=== PATIENT | female | born 1960 | race Two or more races ===

== ENCOUNTER → 2024-01-28 | Outpatient (CLI) | payer MEDICARE, MEDICAID, SELFPAY ==
--- NOTE | 2024-01-28 15:30 | XR_ITS ---
Examination: CT abdomen and pelvis without contrast. Coronal 3-D reconstructions. Sagittal 2-D reconstructions. Date and time of exam:January 28, 2024 1537 hours Comparison January 29, 2022 INDICATIONS: Left upper abdominal pain beginning one year ago, history kidney stones CTDI: vol (mGy): 13.1 DLP: (mGycm): 787 Technique: Axial images of the abdomen have been obtained, 3 mm slice thickness Intravenous contrast material has not been administered. Low dose protocols were performed. One or more of the following dose reduction techniques were used; automated exposure control, adjustment of the mA and/or KV according to patient size, use of iterative reconstruction technique. Findings: Mild enlargement cardiac contour 24 mm fat-containing mass in the dome of the liver on the right No biliary tract dilatation Contracted gallbladder no gallstones Spleen not enlarged No pancreatic or adrenal mass Moderate bilateral renal parenchymal scar formation Bilateral renal calculi, the largest in the lower pole left kidney 11 mm No hydronephrosis or ureteral calculi Thickening of the umbilical tract Normal appendix No bowel obstruction Atrophic uterus Contracted urinary bladder Severe osteopenia IMPRESSION: Moderate bilateral renal parenchymal scar formation Bilateral renal calculi, the largest lower pole left kidney 11 mm No hydronephrosis or ureteral calculi Normal appendix
== END | disposition home or self-care (01) ==
LOC: CCTX 15:17
PROVIDERS: Referring Provider Urology; Visit Provider Urology
DX: N28.89 Other specified disorders of kidney and ureter (principal); N20.0 Calculus of kidney
CPT/HCPCS: 74176

== ENCOUNTER 2024-02-27 05:48 | Emergency (ER) | payer MEDICARE, MEDICAID, SELFPAY ==
[2024-02-27 05:49] VITALS: BMI 45.4
[2024-02-27 05:54] VITALS: BP 185/66; PULSE 64; RESP 22; TEMP 37; O2SAT 95
--- NOTE | 2024-02-27 06:27 | PD.EDRME ---
Rapid Medical Screening Exam RME Arrival date/time: 02/27/24 05:48 63-year-old female presents to emergency department with complaints of bilateral flank pain x 3 days. I have greeted and performed a focused initial assessment of this patient. Initial appropriate labs ordered at this time. A comprehensive ED assessment and evaluation of the patient and analysis of all test and completion of medical decision making process will be conducted by additional ED provider. Chief Complaint: Abdominal Pain Time Seen by Provider: 02/27/24 06:14 Vital signs: Vital Signs Temperature 98.6 F 02/27/24 05:54 Pulse Rate 64 02/27/24 05:54 Respiratory Rate 22 H 02/27/24 05:54 Blood Pressure 185/66 H 02/27/24 05:54 Pulse Oximetry (%) 95 02/27/24 05:54 Oxygen Delivery Method Room Air 02/27/24 05:54
[2024-02-27 06:48] LABS: Collection Type, Urine Clean Catch
[2024-02-27 07:05] LABS: Basophils # (Auto) 0.1 Thou/mm3 (0.0-0.2); Basophils % (Auto) 1 % (0-2.5); Eosinophils # (Auto) 0.2 Thou/mm3 (0.0-0.5); Eosinophils % (Auto) 3 % (0-10); Hematocrit 32.6 % (36.0-46.0); Hemoglobin 10.5 g/dL (12.0-16.0); Immature Granulocytes % (Auto) 0 % (0-0); Immature Granulocytes Auto 0.03 Thou/mm3 (0.00-0.00); Lymphocytes # (Auto) 2.3 Thou/mm3 (1.0-4.8); Lymphocytes % (Auto) 29 % (10-50); Mean Corpuscular HGB Conc 32.2 g/dl (31.0-37.0); Mean Corpuscular Hemoglobin 28.4 pg (25.0-35.0); Mean Corpuscular Volume 88 fL (80-100); Monocytes # (Auto) 0.6 Thou/mm3 (0.0-0.8); Monocytes % (Auto) 7 % (0-12); Neutrophils # (Auto) 4.8 Thou/mm3 (1.8-7.7); Neutrophils % (Auto) 60 % (37-80); Nucleated Red Blood Cell % 0 /100 WBC (0); Platelet Count 407 Thou/mm3 (140-440); RDW Standard Deviation 52.1 fL (36.4-46.3)
[2024-02-27 07:08] LABS: Bilirubin,Urine Negative (Negative); Blood,Urine Negative (Negative); Clarity,Urine Clear (Clear/Hazy); Color,Urine Colorless (Lt Yel-Yel); Glucose, Urine Trace (Negative); Ketones,Urine Negative (Negative); Leukocyte Esterase,Urine Negative (Negative); Nitrite,Urine Negative (Negative); PH,Urine 6.5 (5.0-7.0); Protein,Urine 2+ (Neg - Trace); RBC,Urine 2 /hpf (0-3); Squamous Epithelial Cell,Urine < 1 /hpf (0-5); Urobilinogen,Urine Negative mg/dL (0.0-1.0); WBC,Urine 1 /hpf (0-5)
[2024-02-27 07:30] LABS: Alanine Aminotransferase 21 U/L (10-49); Albumin, Serum 4.1 gm/dL (3.4-4.8); Albumin/Globulin Ratio 1.3 (1.2-2.2); Alkaline Phosphatase 93 U/L (46-116); Anion Gap 9 (7-16); Aspartate Amino Transferase 28 U/L (0-34); BUN/Creatinine Ratio 17 Ratio (12-20); Bilirubin,Total 0.2 mg/dL (0.3-1.2); Blood Urea Nitrogen 27 mg/dL (9-23); Calcium 9.9 mg/dL (8.3-10.6); Calcium (Corrected) 9.9 mg/dL (8.5-10.1); Carbon Dioxide 22.7 mMol/L (20.0-31.0); Chloride 106 mMol/L (98-107); Creatinine (Component) 1.6 mg/dL (0.6-1.3); Estimated Creatinine Clearance 37.4 mL/min (>60); Globulin 3.2 gm/dL (2.3-3.5); Glucose 188 mg/dL (74-106); Lipase 61 U/L (12-53); Osmolality,Calculated 285 (275-295); Potassium 4.9 mMol/L (3.4-5.1); Sodium 138 mMol/L (136-145); Total Protein 7.3 gm/dL (5.7-8.2); eGFR 36 See Note
[2024-02-27 09:11] LABS: INR 0.9 (0.9-1.3); Prothrombin Time 10.2 Seconds (9.0-12.2)
[2024-02-27 11:27] VITALS: BP 199/89; PULSE 66; RESP 20; TEMP 36.7; O2SAT 99; BMI 43.9
--- NOTE | 2024-02-27 11:46 | XR_ITS ---
Examination: CT abdomen and pelvis without contrast. Coronal 3-D reconstructions. Sagittal 2-D reconstructions. Date and time of exam:February 27, 2024 1137 hours INDICATIONS: Bilateral flank pain today, history kidney stones COMPARISON: January 28, 2024 CTDI: vol (mGy): 14.1 DLP: (mGycm): 887 Technique: Axial images of the abdomen have been obtained, 3 mm slice thickness Intravenous contrast material has not been administered. Low dose protocols were performed. One or more of the following dose reduction techniques were used; automated exposure control, adjustment of the mA and/or KV according to patient size, use of iterative reconstruction technique. Findings: 24 mm fat-containing mass dome of the liver again noted Fatty infiltration throughout the liver Hepatomegaly 24 cm Spleen is not enlarged No gallstones No pancreatic or adrenal mass Bilateral renal calculi, the largest the second part of the sella lower pole left kidney 14 mm Minimal right hydronephrosis but no convincing right ureteral calculi No bowel obstruction Normal appendix Atrophic uterus No bladder calculi IMPRESSION: Bilateral renal calculi, the largest a staghorn calculus in the lower pole left kidney 14 mm Minimal right hydronephrosis but no ureteral calculi, consider right urinary tract infection Normal appendix
--- NOTE | 2024-02-27 11:47 | EDNOTE_ITS ---
<Statement entered by Darcy Lujan MD - 02/27/24 17:06> As co-signing physician, I was present and available for consult prn. I concur with the plan and care as documented by the midlevel provider. ED General RME/HPI General Chief complaint: Abdominal Pain Stated complaint: MARLON FLANK PAIN X 1 MONTH Time Seen by Provider: 02/27/24 06:14 Arrival date/time: 02/27/24 05:48 RME / HPI RME / HPI narrative: 63-year-old female patient with significant history of bilateral kidney stones, came in for evaluation regarding worsening bilateral flank pain for 3 days. Patient also complained of not feeling well. Denies any fever denies any vomiting denies any diarrhea denies any constipation denies any hematuria frequency or dysuria. No medications taken prior to arrival. Related Data Home Medications ?Medication ?Instructions ?Recorded ?Confirmed omeprazole 20 mg capsule,delayed 20 mg PO QDAY GERD ##0 06/06/15 12/12/23 release (Prilosec) insulin glargine 100 unit/mL (3 10 unit subcut QDAY 01/07/20 12/12/23 mL) subcutaneous pen (Basaglar KwikPen U-100 Insulin) insulin lispro 100 unit/mL 24 unit subcut TID 01/07/20 12/12/23 subcutaneous pen (Admelog SoloStar U-100 Insulin lispro) acetaminophen 325 mg capsule 650 mg PO TID PRN Pain 12/26/21 12/12/23 benazepril 40 mg tablet 40 mg PO BID 12/26/21 12/12/23 ergocalciferol (vitamin D2) 1,250 1,250 mcg PO QWEEK 12/26/21 12/12/23 mcg (50,000 unit) capsule linaclotide 72 mcg capsule 72 mcg PO QDAY 12/26/21 12/12/23 (Linzess) metformin 1,000 mg tablet 1,000 mg PO BID 12/26/21 12/12/23 rosuvastatin 40 mg tablet 40 mg PO QDAY 12/26/21 12/12/23 Previous Rx's ?Medication ?Instructions ?Recorded aspirin 81 mg tablet,delayed 81 mg PO QDAY #30 tabs 08/03/19 release (Adult Aspirin Regimen) tramadol 37.5 mg-acetaminophen 325 1 tab PO QID PRN pain 5 days #20 02/27/24 mg tablet tabs Allergies Allergy/AdvReac Type Severity Reaction Status Date / Time No Known Allergies Allergy Verified 02/27/24 05:51 Review of Systems Review of Systems Narrative Review of Systems: Review of system reviewed and within normal limits except mentioned in HPI ED Exam Narrative Physical exam: VITAL SIGNS: Reviewed. GENERAL APPEARANCE: Alert and interactive, follows commands, no acute distress, HEAD AND FACE: Non-traumatic. ENT: PERRL, pink conjunctivitis, eyelid no trauma, Mucous membrane moist. NECK: Supple, nontender, no nuchal rigidity. CHEST: No tenderness, no crepitus, no paradoxical movement, no retractions. LUNGS: Clear, well ventilated, symmetric, no rales, no wheezing, no ronchi, no stridor, good breath sounds bilaterally. HEART: Regular rate, regular rhythm, no murmur, no gallops. ABDOMEN: Soft, positive bowel sounds, nondistended, no guarding, nontender, no rebound, no masses, bilateral flank tenderness RECTAL: Deferred. GENITAL: Deferred. NEUROLOGICAL: Gross motor function intact sensory function intact, Appropriate for age. MUSCULOSKELETAL: low back nontender, full range of motion. EXTREMITIES: Nontender, full range of motion. SKIN: Color pink, dry, no rash, no lacerations, no abrasions, no contusions. LYMPHATICS: Deferred. Course Quality Measures none Orders Category Date Time Status NPO STAT Care 02/27/24 06:[address] abdomen pelvis wo con Stat Exams 02/27/24 11:46 Completed CBC Stat Lab 02/27/24 06:40 Completed Comprehensive Metabolic Panel Stat Lab 02/27/24 06:40 Completed Lipase Stat Lab 02/27/24 06:40 Completed Prothrombin Time with INR Stat Lab 02/27/24 06:40 Completed Urinalysis Stat Lab 02/27/24 06:38 Completed Morphine Inj Med 02/27/24 11:46 Discontinued 4 mg IVP X1 ONE Ondansetron Inj [Zofran Inj] Med 02/27/24 11:46 Discontinued 4 mg IV X1 ONE Sodium Chloride 0.9% 1000 ml [Ns] 1,000 ml Med 02/27/24 11:47 Discontinued IV 999 mls/hr Vital Signs Vital signs: Vital Signs Temperature 98.6 F 02/27/24 05:54 Pulse Rate 64 02/27/24 05:54 Respiratory Rate 22 H 02/27/24 05:54 Blood Pressure 185/66 H 02/27/24 05:54 Pulse Oximetry (%) 95 02/27/24 05:54 Oxygen Delivery Method Room Air 02/27/24 05:54 MDM Patient data External records reviewed:: None Clinical information provided by:: patient Social determinants that could affect healthcare access:: none Patient has the following chronic illnesses:: Chronic kidney disease, diabetes mellitus, How is presenting disease/condition affected by chronic disease/condition?: e xacerbated by Evaluation data The following diagnostics were reviewed and interpreted by me:: lab results and radiology exam(s) Lab and/or radiology exams considered but not ordered:: None Interpretation Summary: CT scan of the abdomen pelvis showed Bilateral renal calculi, the largest a staghorn calculus in the lower pole left kidney 14 mm Minimal right hydronephrosis but no ureteral calculi, consider right urinary tract infection Normal appendix Urinalysis no UTI CBC no leukocytosis creatinine was noted to be 1.6, BUN of 27. Medications Medications considered but not ordered:: none Medication administrations:: Medication Administration History Discontinued Medications Sodium Chloride (Ns) 1,000 mls @ 999 mls/hr IV .Q1H1M ONE Stop: 02/27/24 12:47 Last Admin: 02/27/24 12:30 Dose: 999 mls/hr Documented By: ANASTASIYA Morphine Sulfate (Morphine Sulf Inj 10 Mg/Ml Vial) 4 mg IVP X1 ONE Stop: 02/27/24 11:47 Last Admin: 02/27/24 12:30 Dose: 4 mg Documented By: ANASTASIYA Ondansetron HCl (Ondansetron Inj 2 Mg/Ml Inj 2 Ml) 4 mg IV X1 ONE; Protocol Stop: 02/27/24 11:47 Last Admin: 02/27/24 12:30 Dose: 4 mg Documented By: ANASTASIYA IV fluids, morphine and Zofran Consultations Consultation(s) initiated? (list below): No Diagnosis Differential Diagnosis ED Complaint MDM: Flank pain, staghorn calculi, UTI Most likely diagnosis given after review of the tests above:: Staghorn calculi bilateral, flank pain Admission Indicated Admission indicated?: not indicated Explain why admission is indicated or not indicated:: Stable Admission Request Was there a request for admission?: No Disposition Plan Disposition Plan: Discharge Discharge Attestation Discharge Attestation: The patient was given an opportunity to ask questions and understood the discharge instructions. Discharge instructions specifically effects, indications for sooner follow up or return to the emergency department, and the expected course of current diagnosis. Patient condition: Stable Medical Decision Making MDM Narrative MDM Narrative: 63-year-old female patient with significant history of bilateral kidney stones, came in for evaluation regarding worsening bilateral flank pain for 3 days. Patient also complained of not feeling well. Denies any fever denies any vomiting denies any diarrhea denies any constipation denies any hematuria frequency or dysuria. No medications taken prior to arrival. CT scan of the abdomen pelvis showed Bilateral renal calculi, the largest a staghorn calculus in the lower pole left kidney 14 mm Minimal right hydronephrosis but no ureteral calculi, consider right urinary tract infection Normal appendix Laboratory workup unremarkable no UTI results discussed with the patient patient was advised to see a urologist regarding her bilateral kidney stones/staghorn calculi patient agrees with the plan Differential Diagnosis Differential Diagnosis: Flank pain, staghorn calculi, UTI Lab Data 02/27/24 06:40 02/27/24 06:40 Labs: Lab Results 02/27/24 02/27/24 Range/Units 06:38 06:40 WBC 8.0 (3.6-11.0) Thou/mm3 RBC 3.70 L (4.00-5.20) Miln/mm3 Hgb 10.5 L (12.0-16.0) g/dL Hct 32.6 L (36.0-46.0) % MCV 88 (80-100) fL MCH 28.4 (25.0-35.0) pg MCHC 32.2 (31.0-37.0) g/dl RDW Std Deviation 52.1 H (36.4-46.3) fL Plt Count 407 (140-440) Thou/mm3 Neut % (Auto) 60 (37-80) % Lymph % (Auto) 29 (10-50) % [place] % (Auto) 7 (0-12) % Eos % (Auto) 3 (0-10) % Baso % (Auto) 1 (0-2.5) % Neut # (Auto) 4.8 (1.8-7.7) Thou/mm3 Lymph # (Auto) 2.3 (1.0-4.8) Thou/mm3 [place] # (Auto) 0.6 (0.0-0.8) Thou/mm3 Eos # (Auto) 0.2 (0.0-0.5) Thou/mm3 Baso # (Auto) 0.1 (0.0-0.2) Thou/mm3 Immature Gran # (Auto) 0.03 H (0.00-0.00) Thou/mm3 Absolute Nucleated RBC 0.00 (0.00-0.00) Thou/mm3 Immature Gran % 0 (0-0) % Nucleated RBC % 0 (0) /100 WBC PT 10.2 (9.0-12.2) Seconds INR 0.9 (0.9-1.3) Sodium 138 (136-145) mMol/L Potassium 4.9 (3.4-5.1) mMol/L Chloride 106 (98-107) mMol/L Carbon Dioxide 22.7 (20.0-31.0) mMol/L Anion Gap 9 (7-16) BUN 27 H (9-23) mg/dL Creatinine 1.6 H (0.6-1.3) mg/dL Estim Creat Clear Calc 37.4 L (>60) mL/min eGFR 36 L (60 - ) See Note BUN/Creatinine Ratio 17 (12-20) Ratio Glucose 188 H (74-106) mg/dL Calculated Osmolality 285 (275-295) Calcium 9.9 (8.3-10.6) mg/dL Corrected Calcium 9.9 (8.5-10.1) mg/dL Total Bilirubin 0.2 L (0.3-1.2) mg/dL AST 28 (0-34) U/L ALT 21 (10-49) U/L Alkaline Phosphatase 93 (46-116) U/L Total Protein 7.3 (5.7-8.2) gm/dL Albumin 4.1 (3.4-4.8) gm/dL Globulin 3.2 (2.3-3.5) gm/dL Albumin/Globulin Ratio 1.3 (1.2-2.2) Lipase 61 H (12-53) U/L Ur Collection Type Clean Catch Urine Color Colorless A (Lt Yel-Yel) Urine Clarity Clear (Clear/Hazy) Urine pH 6.5 (5.0-7.0) Ur Specific [place] 1.010 (1.001-1.035) Urine Protein 2+ A (Neg - Trace) Urine Glucose (UA) Trace (Negative) Urine Ketones Negative (Negative) Urine Blood Negative (Negative) Urine Nitrite Negative (Negative) Urine Bilirubin Negative (Negative) Urine Urobilinogen (Auto) Negative (0.0-1.0) mg/dL Ur Leukocyte Esterase Negative (Negative) Urine RBC 2 (0-3) /hpf Urine WBC 1 (0-5) /hpf Ur Squamous Epith Cells < 1 (0-5) /hpf Urine Bacteria None (None) Discharge Plan Plan Patient Disposition: HOME (Self Care) Disposition Comment: Stable Prescriptions/Referrals Prescriptions/Med Rec: New tramadol-acetaminophen 37.5-325 mg tablet 1 tab PO QID PRN (Reason: pain) 5 Days Qty: 20 0RF No Action Linzess 72 mcg capsule 72 mcg PO QDAY metformin 1,000 mg tablet 1,000 mg PO BID acetaminophen 325 mg capsule 650 mg PO TID PRN (Reason: Pain) ergocalciferol (vitamin D2) 1,250 mcg (50,000 unit) capsule 1,250 mcg PO QWEEK benazepril 40 mg tablet 40 mg PO BID rosuvastatin 40 mg tablet 40 mg PO QDAY omeprazole [Prilosec] 20 MG capsule,delayed release(DR/EC) 20 mg PO QDAY Qty: 0 Patient Comments: TO SUPPRESS GASTRIC ACID SECRETIONS aspirin [Adult Aspirin Regimen] 81 mg tablet,delayed release (DR/EC) 81 mg PO QDAY Qty: 30 0RF insulin glargine [Basaglar KwikPen U-100 Insulin] 100 unit/mL (3 mL) Insulin Pen 10 unit SUBCUT QDAY insulin lispro [Admelog SoloStar U-100 Insulin] 100 unit/mL insulin pen 24 unit subcut TID Referrals: Darcy Lujan MD [Primary Care Provider] - In 1 week Problem List Clinical Impression: Staghorn kidney stones, Chronic flank pain Patient/Caregiver Discharge Instructions Discharge Activity: activity as tolerated Education Materials: ED Kidney Stone w/ Colic Additional Instructions: Thank you for the opportunity for serving you today. You are stable for discharged . You are advised to: Follow-up with your PCP in 1 to 2 days and asked for referral to urologist Return to ED for worsening of symptoms Increase oral fluids Take medication as prescribed Print Language: Pakistani Stand Alone Forms: Nisha Award Info., Patient Portal Info Letter PA/SCRAPER OPERATOR Supervising Physician LAUREN/SUNNY Supervising Physician: MD Jn
[2024-02-27] MEDS: SODIUM CHLORIDE 0.9% 1000 ML 1,000 ML 999 ML IV (12:30)
[2024-02-27] MEDS: MORPHINE SULF INJ 10 MG/ML VIAL 4 MG IVP (12:30)
[2024-02-27] MEDS: ONDANSETRON INJ 2 MG/ML INJ 2 ML 4 MG IV (12:30)
[2024-02-27 12:43] VITALS: BP 189/92; PULSE 86; RESP 19; TEMP 36.6; O2SAT 97
[2024-02-27 14:03] VITALS: BP 181/71; PULSE 62; RESP 18; TEMP 36.7; O2SAT 99
== END 2024-02-27 14:27 | disposition home or self-care (01) ==
PROVIDERS: Nurse Practitioner Primary Care; Emergency Provider Nurse Practitioner Family; PCP Emergency Medicine
DX: N13.2 Hydronephrosis with renal and ureteral calculous obstruction (principal); G89.29 Other chronic pain; E11.22 Type 2 diabetes mellitus with diabetic chronic kidney disease; N18.9 Chronic kidney disease, unspecified; Z79.84 Long term (current) use of oral hypoglycemic drugs
CPT/HCPCS: 36415; 74176; 80053; 81001; 83690; 85025; 85610; 96374; 99284; J2270; J2405; J7030

== ENCOUNTER → 2024-03-20 | Outpatient (BNVA) | payer MEDICARE, MEDICAID, SELFPAY | END | disposition home or self-care (01) | PROVIDERS: PCP Nurse Practitioner Family; Referring Provider Nurse Practitioner Family; Visit Provider Urology | DX: N20.0 Calculus of kidney (principal); E11.9 Type 2 diabetes mellitus without complications; I10 Essential (primary) hypertension; E66.01 Morbid (severe) obesity due to excess calories; Z68.41 Body mass index [BMI] 40.0-44.9, adult; Z87.442 Personal history of urinary calculi; E78.00 Pure hypercholesterolemia, unspecified; K21.9 Gastro-esophageal reflux disease without esophagitis; Z86.73 Personal history of transient ischemic attack (TIA), and cerebral infarction without residual deficits | CPT/HCPCS: 81003; 99212; G0463 ==

== ENCOUNTER 2024-04-05 11:38 | Inpatient (IN) | payer MEDICARE, MEDICAID, SELFPAY ==
[2024-04-05] VITALS (9 sets, daily range): BP systolic 104–141; BP diastolic 61–69; PULSE 52–62; RESP 13–20; TEMP 36.8–36.9; O2SAT 85–99; BMI 44.1
--- NOTE | 2024-04-05 12:03 | PC.NURSE ---
PT IN TODAY FOR STROKE LIKE SYMPTOMS. PT STATES THAT SHE HAS NOT BEEN FEELING GOOD SINCE SATURDAY. PT STATES THAT HER SYMPTOMS GOT WORSE, BUT TODAY SHE WAS NOTED WITH FACIAL DROOP AND SLURRED SPEECH FROM FAMILY. DAUGHTER ALSO STATES THAT PT HAD BEEN GRADUALLY GETTING WORSE SINCE SATURDAY. LAST KNOWN WELL WAS SATURDAY AT NOON. SYMPTOMS WERE NOTED AT AROUND [id number] SATURDAY. PT AWAITING TO BE SEEN BY PROVIDER.
--- NOTE | 2024-04-05 12:08 | PD.EDNEURO ---
Neuro Symptoms Deficit-RME/HPI General Chief Complaint: Neuro Symptoms/Deficit Stated Complaint: POSS STROKE Time Seen by Provider: 04/05/24 11:54 Arrival date/time: 04/05/24 11:38 This is a 64-year-old female that is brought in by ambulance with family members with complaints of possible stroke. Per patient daughter symptoms started yesterday around 4 to 5 PM. They noticed that she had a right sided facial droop, slurred speech and confusion. Patient has had history of stroke in the past. Per patient daughter patient has been sick since 04/01/24 some of the symptoms patient was having was body aches, fever, cough, congestion, sore throat. Per patient daughter patient has been sleeping a lot recently. Patient typically uses oxygen mask at night to sleep. I asked if this was a CPAP and she said it was just an oxygen mask. Patient has a history of stroke in 2016, high blood pressure, diabetes, hyperlipidemia. Patient has had tonsillectomy in the past along with a G-tube placement because of previous stroke. Patient was not able to swallow. Pt recently saw . Pt has a history of stone disease. She had a stone on the right side, went to [place] recnertly, , had a placement of stent, which was subsequently removed. Nothing was done for the stone in the lower pole of left kidney per note. Related Data Home Medications ?Medication ?Instructions ?Recorded ?Confirmed omeprazole 20 mg capsule,delayed 20 mg PO QDAY GERD ##0 06/06/15 03/20/24 release (Prilosec) insulin glargine 100 unit/mL (3 10 unit subcut QDAY 01/07/20 03/20/24 mL) subcutaneous pen (Basaglar KwikPen U-100 Insulin) insulin lispro 100 unit/mL 24 unit subcut TID 01/07/20 03/20/24 subcutaneous pen (Admelog SoloStar U-100 Insulin lispro) acetaminophen 325 mg capsule 650 mg PO TID PRN Pain 12/26/21 04/07/24 benazepril 40 mg tablet 40 mg PO DAILY 12/26/21 04/07/24 ergocalciferol (vitamin D2) 1,250 1,250 mcg PO QWEEK 12/26/21 03/20/24 mcg (50,000 unit) capsule linaclotide 72 mcg capsule 72 mcg PO QDAY 12/26/21 03/20/24 (Linzess) metformin 1,000 mg tablet 1,000 mg PO BID 12/26/21 04/07/24 rosuvastatin 40 mg tablet 40 mg PO QDAY 12/26/21 03/20/24 amlodipine 10 mg tablet 10 mg PO QDAY 04/07/24 04/07/24 furosemide 20 mg tablet 20 mg PO BID 04/07/24 04/07/24 metoprolol tartrate 100 mg tablet 100 mg PO BID 04/07/24 04/07/24 Previous Rx's ?Medication ?Instructions ?Recorded aspirin 81 mg tablet,delayed 81 mg PO QDAY #30 tabs 08/03/19 release (Adult Aspirin Regimen) Allergies Allergy/AdvReac Type Severity Reaction Status Date / Time No Known Allergies Allergy Verified 03/20/24 15:08 Review of Systems Review of Systems Systems Reviewed: All systems reviewed, normal except as documented Past Medical History Past Medical History NEUROLOGIC: Positive Neurological Disorders and Cerebrovascular Accident; Negative Seizures CARDIAC: Positive Cardiac Disorders, Myocardial Infarction (NSTEMI), Angina, Hypercholesterolemia and Hypertension; Negative Congestive Heart Failure RESPIRATORY: Positive Asthma and Sleep Apnea; Negative Chronic Obstructive Pulmonary Disease (COPD) GASTROINTESTINAL: Positive Gastrointestinal Disorders, Gastroesophageal Reflux Disease and Obesity GENITOURINARY: Positive Genitourinary Disorders and Kidney Stones (left side); Negative Renal Disease REPRODUCTIVE: Positive Previous Pregnancies MUSCULOSKELETAL: Positive Musculoskeletal Disorders and Arthritis ENDOCRINE: Positive Endocrine Disorders and Diabetes Mellitus Type 2; Negative Diabetes Mellitus Type 1 HEMATOLOGIC: Positive Anemia; Negative Blood Disorders or Sickle Cell Disease OTHER HISTORY: Positive Hospitalization; Negative Blood Transfusions, Anesthesia Reactions or Cancer Surgical History SURGICAL: Positive Abdominal Surgery and Section Social History SMOKING STATUS: Never smoker ED Exam General General appearance: Present alert, in no apparent distress and other ( morbidly obese ) Head Head exam: Present atraumatic Eye Eye exam: Present PERRL and EOMI ENT ENT exam: Present normal exam, normal oropharynx and mucous membranes moist Neck Neck exam: Present normal inspection, full ROM and trachea midline Chest Chest inspection: Present normal inspection and symmetric chest wall rise Respiratory Respiratory exam: Present other (rales at bases, rhonchi, hypoxic on o2 on arrival, wet cough ) Cardiovascular Cardiovascular exam: Present regular rate, normal rhythm and normal heart sounds Abdominal Exam Abdominal exam: Present soft Extremities Exam Extremities exam: Present normal inspection and full ROM Back Exam Back exam: Present normal inspection and full ROM Neurological Exam Neurological exam: Present alert and oriented X3 Psychiatric Psychiatric exam: Present other (poor eye contact ) Skin Skin exam: Present warm, dry and intact Course Quality Measures none Orders Category Date Time Status Bedside COVID-19 Antigen Test NOW Care 04/05/24 12:29 Completed Bedside Influenza A&B Antigen Test NOW Care 04/05/24 12:30 Completed Bladder Scan NEEDED Care 04/05/24 22:13 Completed COVID-19 Screening Questionnaire NOW Care 04/05/24 17:51 Completed Decision to Admit X1 Care 04/05/24 17:51 Completed EKG (ED ONLY) *Do not use* NOW Care 04/05/24 12:30 Completed Gonzalez [Urinary Catheter] QS Care 04/05/24 22:52 Completed Gonzalez to [place] Routine Care 04/05/24 22:[address] abdomen pelvis wo con Stat Exams 04/05/24 14:[address] chest wo con Stat Exams 04/05/24 14:[address] head/brain wo con Stat Exams 04/05/24 12:29 Completed EKG (ED Only) Stat Exams 04/05/24 12:29 Draft XR chest 1V Stat Exams 04/05/24 12:29 Completed ABG [Arterial Blood Gas] Stat Lab 04/05/24 13:11 Completed Ammonia Stat Lab 04/05/24 13:00 Completed BNP [B-Type Natriuretic Peptide] Stat Lab 04/05/24 13:06 Completed Blood Culture (Lab) Stat Lab 04/05/24 13:06 Completed CBC Stat Lab 04/05/24 13:00 Completed Comprehensive Metabolic Panel Stat Lab 04/05/24 13:06 Completed Comprehensive Metabolic Panel Stat Lab 04/05/24 20:59 Completed INR [Prothrombin Time with INR] Stat Lab 04/05/24 13:00 Completed Lactate (Lactic Acid) Stat Lab 04/05/24 13:06 Completed Procalcitonin Stat Lab 04/05/24 13:06 Completed Troponin I Stat Lab 04/05/24 13:06 Completed Troponin I Stat Lab 04/05/24 14:54 Completed Urinalysis, C/S if Indicated Stat Lab 04/05/24 13:17 Completed Azithromycin Po [Zithromax PO] Med 04/05/24 17:40 Discontinued 500 mg PO X1 ONE Sodium Chloride 0.9% 1000 ml [Ns] 1,000 ml Med 04/05/24 14:19 Discontinued IV 999 mls/hr Sodium Chloride 0.9% 1000 ml [Ns] 1,000 ml Med 04/05/24 17:37 Discontinued IV 999 mls/hr cefTRIAXone [Rocephin] 1,000 mg Med 04/05/24 14:26 Discontinued Sodium Chloride 0.9% [Ns] 50 ml IV X1 Vital Signs Vital signs: Vital Signs Temperature 98.5 F 04/05/24 11:45 Pulse Rate 58 L 04/05/24 11:45 Respiratory Rate 14 04/05/24 11:45 Blood Pressure 110/68 04/05/24 11:45 Pulse Oximetry (%) 96 04/05/24 11:45 Oxygen Delivery Method Nasal Cannula 04/05/24 11:45 Oxygen Flow Rate 6 04/05/24 11:45 Procedures -ED EKG Interpretation #1: Date of EK04/05/24 Time of EK:12 Rate: 54 Interpretation: Interpreted by me (Sinus bradycardia with T wave abnormality in lateral leads.) EKG Impression: No ectopy, Normal QRS and Normal intervals Neuro Symptoms / Deficit MDM Narrative MDM Narrative:: hx 02/27/24 ct scan abdomen and pelvis: Findings: 24 mm fat-containing mass dome of the liver again noted Fatty infiltration throughout the liver Hepatomegaly 24 cm Spleen is not enlarged No gallstones No pancreatic or adrenal mass Bilateral renal calculi, the largest the second part of the sella lower pole left kidney 14 mm Minimal right hydronephrosis but no convincing right ureteral calculi No bowel obstruction Normal appendix Atrophic uterus No bladder calculi IMPRESSION: Bilateral renal calculi, the largest a staghorn calculus in the lower pole left kidney 14 mm Minimal right hydronephrosis but no ureteral calculi, consider right urinary tract infection Normal appendix Chest x ray: Findings: Moderate CHF Moderate enlargement cardiac contour with prominent vascular congestion and perihilar edema Consider superimposed pneumonia at the lung bases Impression: Moderate CHF Consider superimposed pneumonia at the lung bases CT abdomen pelvis 04/05/24: Findings: Bibasilar edema and/or pneumonia Fat-containing mass dome of the liver on the right again depicted Liver is irregular in contour and enlarged, 22 cm Gallbladder is contracted, the wall of the gallbladder appears mildly thickened Spleen is not enlarged No pancreatic or adrenal mass Moderate bilateral renal parenchymal scar formation Renal arterial calcifications 10 mm 14 mm lower pole left renal calculi No hydronephrosis or ureteral calculi No bowel obstruction No pericecal inflammatory change Atrophic anteverted uterus Contracted urinary bladder with urinary bladder wall thickening moderate osteopenia Impression: Significant hepatomegaly Recommend hepatobiliary sonography follow-up to exclude gallbladder wall thickening Moderate bilateral renal parenchymal scar formation 10 mm, 14 mm lower pole left renal calculi, no hydronephrosis or ureteral calculi No CT findings of appendicitis or bowel obstruction Cystitis pattern Ct chest no contrast 04/05/24: Findings: Fluid surrounding the origin of the ascending thoracic aorta, axial image 43, measuring up to 12 mm in thickness Pulmonary artery segments are not enlarged Heavy calcification left main left anterior descending and left circumflex coronary arteries Mild to moderate enlargement cardiac contour Prominent vascular congestion Extensive bilateral lung opacity IMPRESSION: Fluid measuring up to 12 mm in thickness around the ascending thoracic aorta, clinical correlation advised Recommend CTA chest postintravenous contrast follow-up to confirm integrity of the ascending thoracic aorta and exclude intramural hematoma Moderate CHF Superimposed bilateral pneumonia CT heasd 04/05/24: Findings: No significant ventricular enlargement. Intra-axial or extra-axial hemorrhage density is not seen. No mass effect or midline shift Basal cisterns are not remarkable. Fourth ventricle is midline. Cranial vault intact. Impression: Negative for acute hemorrhage, mass effect or midline shift As clinically warranted, consider brain MRI MRA without contrast, stroke protocol, follow-up Discussed case with . Reviewed patient's labs. Patient's white count is 4.3, hemoglobin and hematocrit of 9.1 and 29.2, platelet count is 269. PT/INR unremarkable. Patient had an ABG done and pH was 7.23 pCO2 of 39 pO2 54 bicarb of 16 and O2 saturation of 86%. Patient's CMP shows a sodium of 135, potassium 4.4, chloride of 104, bicarb of 15.6, anion gap of 15, BUN 59, with a creatinine of 5.4. Glucose was 265, calcium 7.8,, troponin was 1.319, BNP is 38, ammonia less than 10 lactic acid 0.8. Procalcitonin 0.89. Patient's urine shows some white blood cells, red blood cells, negative for leukocyte esterase. Patient EKG shows inverted T waves in lead I aVL patient also has flattening T waves in V5 and V6. Influenza A and B- COVID-negative. I called hospitalist team at approximately 1750 and I discussed at length. They stated they would admit the patient we were able to get a hold of Dr. Lazcano And have him agreed to see patient while she is in the hospital if needed. I called Dr. Lazcano and left a message. He did not call me back. I called hospitalist team again at approximately 8:00pm and let them know that Dr. Lazcano did not call me back. They requested a repeat BMP to see if creatinine improved with IV fluids and they stated that if it improved they would agree to admit patient. At approximately 2130 CMP resulted bicarb was improved but creatinine remained the same. Hospitalist team wanted outside urology facility to be contacted to discuss case because they were uncomfortable with patient having history of kidney stones. Because patient renal failure and we still have no clear reason why she is in renal failure they are concerned that it secondary to a kidney stone. Patient is voiding we bladder scanned patient and only had 50 mL of urine in her bladder. Patient was only given a liter of fluid and did get a little short of breath with a liter of fluid and that is why we did not give her any more. I called Dr. Elmore and discussed case with her. She thinks that this could be prerenal. She initially stated to give the patient more fluids but then I explained to her that patient was a little short of breath with the IV fluids. She looked at patient's labs and stated patient would likely get dialysis tomorrow and she does not need dialysis at this time. I spoke to hospitalist team and they agreed to admit patient. Patient data External records reviewed:: [facility] previous records Clinical information provided by:: family Social determinants that could affect healthcare access:: none Patient has the following chronic illnesses:: see hpi How is presenting disease/condition affected by chronic disease/condition?: exacerbated by Evaluation data The following diagnostics were reviewed and interpreted by me:: lab results, radiology exam(s) and EKG tracing(s) Lab and/or radiology exams considered but not ordered:: none Interpretation Summary: see note Medications / Prescriptions Medications or Prescriptions considered but not ordered:: none Medication administrations:: Medication Administration History Discontinued Medications Acetaminophen (Acetaminophen 325 Mg Tablet) 650 mg PO Q6H PRN PRN Reason: PAIN SCALE 1-3 (mild Stop: 05/05/24 23:05 Acetaminophen (Acetaminophen 325 Mg Tablet) 650 mg PO Q6H PRN PRN Reason: Fever >100 Stop: 05/05/24 23:05 Acetaminophen (Acetaminophen Supp 650 Mg Supp) 650 mg RI X1 ONE Stop: 04/06/24 18:44 Last Admin: 04/06/24 18:49 Dose: 650 mg Documented By: KENNETH Acetaminophen (Acetaminophen 500 Mg Tablet) 1,000 mg PO QDAY@1130 [facility] Stop: 04/18/24 11:31 Last Admin: 04/15/24 11:39 Dose: 1,000 mg Documented By: Admin: 04/14/24 12:07 Dose: 1,000 mg Documented By: Admin: 04/13/24 14:29 Dose: 1,000 mg Documented By: IRENE Acetaminophen (Acetaminophen 325 Mg Tablet) 650 mg PO Q12HR PRN PRN Reason: Fever >100, or pain 1-3 Stop: 05/05/24 23:05 Hydrocodone Bitart/Acetaminophen (Hydrocodone/Apap 10/325 Tab) 1 tab PO Q4HR PRN PRN Reason: PAIN SCALE 7-10 (Severe Stop: 04/10/24 23:05 Albuterol/Ipratropium (Albuterol/Ipratropium (Duoneb) Rt Princess 3 Ml Nebu) 3 ml INH Q6HRRT [facility] Stop: 05/06/24 00:59 Last Admin: 04/10/24 06:51 Dose: 3 ml Documented By: Admin: 04/10/24 02:20 Dose: 3 ml Documented By: Admin: 04/09/24 19:00 Dose: 3 ml Documented By: Admin: 04/09/24 12:12 Dose: 3 ml Documented By: Admin: 04/09/24 08:00 Dose: 3 ml Documented By: Admin: 04/09/24 01:35 Dose: 3 ml Documented By: Admin: 04/08/24 18:30 Dose: 3 ml Documented By: Admin: 04/08/24 13:25 Dose: 3 ml Documented By: Admin: 04/08/24 06:10 Dose: Not Given Documented By: OSMAN Non-Admin Reason: Not In Room Admin: 04/08/24 01:00 Dose: 3 ml Documented By: Admin: 04/07/24 18:50 Dose: 3 ml Documented By: Admin: 04/07/24 14:45 Dose: 3 ml Documented By: OSMAN Comments: tx late. RT needed else where. Admin: 04/07/24 07:05 Dose: 3 ml Documented By: Admin: 04/07/24 01:00 Dose: 3 ml Documented By: Admin: 04/06/24 18:35 Dose: 3 ml Documented By: Admin: 04/06/24 13:53 Dose: 3 ml Documented By: Admin: 04/06/24 06:34 Dose: 3 ml Documented By: Admin: 04/06/24 01:55 Dose: 3 ml Documented By: NELSY Albuterol/Ipratropium (Albuterol/Ipratropium (Duoneb) Rt Princess 3 Ml Nebu) 3 ml INH Q4HRRT [facility] Stop: 05/10/24 11:44 Last Admin: 04/15/24 23:20 Dose: 3 ml Documented By: Admin: 04/15/24 18:45 Dose: 3 ml Documented By: Admin: 04/15/24 14:54 Dose: 3 ml Documented By: Admin: 04/15/24 10:45 Dose: 3 ml Documented By: Admin: 04/15/24 06:56 Dose: 3 ml Documented By: Admin: 04/15/24 03:13 Dose: 3 ml Documented By: Admin: 04/14/24 22:43 Dose: 3 ml Documented By: Admin: 04/14/24 18:50 Dose: 3 ml Documented By: Admin: 04/14/24 15:15 Dose: 3 ml Documented By: Admin: 04/14/24 10:19 Dose: 3 ml Documented By: Admin: 04/14/24 06:27 Dose: 3 ml Documented By: Admin: 04/14/24 03:10 Dose: 3 ml Documented By: Admin: 04/13/24 22:30 Dose: 3 ml Documented By: Admin: 04/13/24 18:30 Dose: 3 ml Documented By: Admin: 04/13/24 14:24 Dose: 3 ml Documented By: Admin: 04/13/24 10:27 Dose: 3 ml Documented By: Admin: 04/13/24 06:25 Dose: 3 ml Documented By: Admin: 04/13/24 03:30 Dose: 3 ml Documented By: Admin: 04/12/24 22:40 Dose: 3 ml Documented By: Admin: 04/12/24 19:10 Dose: 3 ml Documented By: Admin: 04/12/24 14:58 Dose: 3 ml Documented By: Admin: 04/12/24 10:18 Dose: 3 ml Documented By: Admin: 04/12/24 06:46 Dose: 3 ml Documented By: Admin: 04/12/24 03:01 Dose: 3 ml Documented By: SC Admin: 04/11/24 23:25 Dose: 3 ml Documented By: SC Admin: 04/11/24 19:38 Dose: Not Given Documented By: SC Non-Admin Reason: med not given due to new cardiac rhythm Admin: 04/11/24 14:43 Dose: 3 ml Documented By: Admin: 04/11/24 11:24 Dose: 3 ml Documented By: Admin: 04/11/24 07:25 Dose: 3 ml Documented By: Admin: 04/11/24 07:20 Dose: Not Given Documented By: MR Non-Admin Reason: not charted Admin: 04/11/24 02:17 Dose: 3 ml Documented By: SC Admin: 04/10/24 22:55 Dose: 3 ml Documented By: SC Admin: 04/10/24 18:05 Dose: 3 ml Documented By: SC Admin: 04/10/24 13:01 Dose: 3 ml Documented By: KARLA Amlodipine Besylate (Amlodipine Besylate 2.5 Mg Tablet) 2.5 mg PO QDAY [facility] Stop: 05/13/24 08:59 Aspirin (Aspirin Ec 81 Mg Tabec) 81 mg PO QDAY [facility] Stop: 05/06/24 08:59 Last Admin: 04/06/24 15:41 Dose: Not Given Documented By: JRR Non-Admin Reason: held per order Aspirin (Aspirin 300 Mg Supp) 300 mg RI QDAY [facility] Stop: 05/06/24 12:14 Last Admin: 04/12/24 11:29 Dose: Not Given Documented By: AG Non-Admin Reason: Discontinued Admin: 04/11/24 10:05 Dose: 300 mg Documented By: Admin: 04/10/24 08:22 Dose: 300 mg Documented By: Admin: 04/09/24 09:06 Dose: 300 mg Documented By: Admin: 04/08/24 13:41 Dose: 300 mg Documented By: DEANDRE(2) Admin: 04/07/24 12:24 Dose: 300 mg Documented By: Admin: 04/06/24 12:43 Dose: 300 mg Documented By: BEATRIZ Aspirin (Aspirin 325 Mg Tablet) 325 mg NG QDAY [facility] Stop: 05/12/24 10:14 Last Admin: 04/15/24 09:36 Dose: 325 mg Documented By: Admin: 04/14/24 08:32 Dose: 325 mg Documented By: Admin: 04/13/24 11:34 Dose: 325 mg Documented By: IRENE Comments: late administration, pt in dialysis Admin: 04/12/24 10:26 Dose: 325 mg Documented By: DEANDRE Atorvastatin Calcium (Atorvastatin Calcium 20 Mg Tablet) 80 mg PO [facility] Stop: 05/06/24 20:59 Last Admin: 04/10/24 20:02 Dose: 80 mg Documented By: Admin: 04/09/24 22:00 Dose: Not Given Documented By: DAVID Non-Admin Reason: NPO Admin: 04/08/24 20:06 Dose: Not Given Documented By: LUCY Non-Admin Reason: NPO Admin: 04/07/24 20:14 Dose: Not Given Documented By: ZUNILDA Non-Admin Reason: NPO Admin: 04/06/24 20:14 Dose: Not Given Documented By: Non-Admin Reason: Unable to Swallow Atorvastatin Calcium (Atorvastatin Calcium 20 Mg Tablet) 80 mg NG [facility] Stop: 05/11/24 20:59 Last Admin: 04/15/24 21:31 Dose: 80 mg Documented By: Admin: 04/14/24 21:42 Dose: 80 mg Documented By: Admin: 04/13/24 21:50 Dose: 80 mg Documented By: Admin: 04/12/24 20:21 Dose: 80 mg Documented By: Admin: 04/11/24 21:39 Dose: 80 mg Documented By: LUCY Atropine Sulfate (Atropine Sulf Inj 0.1 Mg/Ml Syr 10 Ml) Confirm Administered Dose 1 mg .ROUTE .STK-MED ONE Stop: 04/16/24 00:55 Azithromycin (Azithromycin 250 Mg Tablet) 500 mg PO X1 ONE Stop: 04/05/24 17:41 Last Admin: 04/05/24 19:34 Dose: 500 mg Documented By: KG Bumetanide (Bumetanide Inj 0.25 Mg/Ml Vial 4 Ml) 2 mg IVP X1 ONE Stop: 04/09/24 12:10 Last Admin: 04/09/24 12:46 Dose: 2 mg Documented By: VIGNESH Calcium Carbonate (Calcium Carbonate 600 Mg Tablet) 600 mg PO BID [facility] Stop: 05/06/24 14:44 Last Admin: 04/15/24 21:31 Dose: 600 mg Documented By: Admin: 04/15/24 09:35 Dose: 600 mg Documented By: Admin: 04/14/24 21:42 Dose: 600 mg Documented By: Admin: 04/14/24 08:32 Dose: 600 mg Documented By: Admin: 04/13/24 21:50 Dose: 600 mg Documented By: Admin: 04/13/24 08:49 Dose: 600 mg Documented By: Admin: 04/12/24 20:20 Dose: 600 mg Documented By: Admin: 04/12/24 09:54 Dose: 600 mg Documented By: Admin: 04/11/24 21:39 Dose: 600 mg Documented By: Admin: 04/11/24 08:07 Dose: 600 mg Documented By: Admin: 04/10/24 20:01 Dose: 600 mg Documented By: Admin: 04/10/24 19:05 Dose: Not Given Documented By: geri Non-Admin Reason: held for procedure Admin: 04/09/24 22:00 Dose: Not Given Documented By: DAVID Non-Admin Reason: Medication Not Available Admin: 04/09/24 09:06 Dose: Not Given Documented By: VIGNESH Non-Admin Reason: NPO Admin: 04/08/24 20:06 Dose: Not Given Documented By: LUCY Non-Admin Reason: NPO Admin: 04/08/24 12:12 Dose: Not Given Documented By: DEANDRE(2) Non-Admin Reason: Cancelled by Provider Admin: 04/07/24 20:37 Dose: Not Given Documented By: ZUNILDA Non-Admin Reason: NPO Admin: 04/07/24 13:05 Dose: Not Given Documented By: JONAS Non-Admin Reason: NPO Admin: 04/06/24 20:14 Dose: Not Given Documented By: Non-Admin Reason: Unable to Swallow Admin: 04/06/24 15:37 Dose: Not Given Documented By: BEATRIZ Non-Admin Reason: on bipap.failed swallow eval Clopidogrel Bisulfate (Clopidogrel Bisulfate 75 Mg Tablet) 75 mg PO QDAY [facility] Stop: 05/10/24 19:14 Last Admin: 04/11/24 08:07 Dose: 75 mg Documented By: Admin: 04/10/24 19:52 Dose: 75 mg Documented By: Clopidogrel Bisulfate (Clopidogrel Bisulfate 75 Mg Tablet) 75 mg NG QDAY [facility] Stop: 05/12/24 08:59 Last Admin: 04/15/24 09:36 Dose: 75 mg Documented By: Admin: 04/14/24 08:32 Dose: 75 mg Documented By: Admin: 04/13/24 11:34 Dose: 75 mg Documented By: IRENE Comments: late administration, pt in dialysis Admin: 04/12/24 10:10 Dose: 75 mg Documented By: DEANDRE Dextrose (Dextrose 50%-Water Inj 50 Ml Syringe) 25 ml IV Q15MIN PRN PRN Reason: BG 50-70 responsive npo pt Stop: 05/07/24 10:51 Last Admin: 04/15/24 13:33 Dose: 25 ml Documented By: DEANDRE Dextrose (Dextrose 50%-Water Inj 50 Ml Syringe) 50 ml IV Q15MIN PRN PRN Reason: BG <50 OR BG <70 & pt unresponsive Stop: 05/07/24 10:51 Diazepam (Diazepam Inj 5 Mg/Ml Vial 2 Ml) 2 mg IVP X1 ONE Stop: 04/07/24 12:11 Last Admin: 04/07/24 12:17 Dose: 2 mg Documented By: JONAS Diphenhydramine HCl (Diphenhydramine Elix 25 Mg/10 Ml Udc) 25 mg NG QDAY@1130 [facility] Stop: 04/18/24 11:31 Last Admin: 04/15/24 11:40 Dose: 25 mg Documented By: Admin: 04/14/24 12:07 Dose: 25 mg Documented By: Admin: 04/13/24 14:29 Dose: 25 mg Documented By: IRENE Epoetin Go (Epoetin Go-Epbx Inj 10,000 Unit/Ml Vial (Esrd)) 10,000 unit SC X1 ONE Stop: 04/08/24 10:01 Last Admin: 04/08/24 13:57 Dose: 10,000 unit Documented By: DEANDRE(2) Comments: [id number] Epoetin Go (Epoetin Go-Epbx Inj 10,000 Unit/Ml Vial (Non-Esrd)) 10,000 unit SC X1 ONE Stop: 04/10/24 09:01 Last Admin: 04/10/24 19:30 Dose: 10,000 unit Documented By: ED Fentanyl Citrate (Fentanyl Cit Inj 50 Mcg/Ml Amp 2ml) Confirm Administered Dose 100 mcg .ROUTE .STK-MED ONE Stop: 04/06/24 10:30 Last Admin: 04/06/24 11:30 Dose: Not Given Documented By: EC Non-Admin Reason: Duplicate Medication on eMAR Fentanyl Citrate (Fentanyl Cit Inj 50 Mcg/Ml Amp 2ml) 100 mcg IV X1 ONE Stop: 04/10/24 09:47 Last Admin: 04/10/24 09:57 Dose: 100 mcg Documented By: geri Comments: RSI Fentanyl Citrate (Fentanyl Cit Inj 50 Mcg/Ml Amp 2ml) Confirm Administered Dose 100 mcg .ROUTE .STK-MED ONE Stop: 04/10/24 09:42 Last Admin: 04/10/24 13:22 Dose: Not Given Documented By: geri Non-Admin Reason: Duplicate Medication on eMAR Furosemide (Furosemide Inj 10 Mg/Ml 4ml Vial) 40 mg IVP X1 ONE Stop: 04/05/24 23:07 Last Admin: 04/05/24 23:45 Dose: 40 mg Documented By: LB Furosemide (Furosemide Inj 10 Mg/Ml 4ml Vial) 40 mg IVP X1 ONE Stop: 04/06/24 23:12 Last Admin: 04/06/24 23:25 Dose: 40 mg Documented By: SA Glucagon (Glucagon Inj 1 Mg Vial) 1 mg IM Q15MIN PRN PRN Reason: BG <70, and no IV access Haloperidol Lactate (Haloperidol Lact Inj 5 Mg/Ml Vial) 2.5 mg IV X1 ONE Stop: 04/06/24 23:13 Last Admin: 04/06/24 23:24 Dose: 2.5 mg Documented By: SA Haloperidol Lactate (Haloperidol Lact Inj 5 Mg/Ml Vial) 2 mg IV X1 ONE Stop: 04/07/24 15:25 Last Admin: 04/09/24 10:20 Dose: Not Given Documented By: ZP Non-Admin Reason: Discontinued Haloperidol Lactate (Haloperidol Lact Inj 5 Mg/Ml Vial) 2.5 mg IV X1 ONE Stop: 04/07/24 15:33 Last Admin: 04/07/24 17:20 Dose: 2.5 mg Documented By: JRR Heparin Sodium (Beef Lung) (Heparin Sod Lock Syr 100 Unit/Ml) Confirm Administered Dose 500 unit .ROUTE .STK-MED ONE Stop: 04/06/24 10:31 Last Admin: 04/06/24 12:04 Dose: Not Given Documented By: EC Non-Admin Reason: Duplicate Medication on eMAR Heparin Sodium (Beef Lung) (Heparin Sod Lock Syr 100 Unit/Ml) 500 unit INTRACATH X1 ONE Stop: 04/06/24 11:01 Last Admin: 04/06/24 11:00 Dose: 500 unit Documented By: EC Comments: placed on sterile field Heparin Sodium (Porcine) (Heparin Sod Inj 5000 Unit/Ml Vial) 5,000 unit SC Q8HR DELMY Stop: 04/20/24 05:59 Heparin Sodium (Porcine) (Heparin Sod Inj 1000 Unit/Ml Vial) Confirm Administered Dose 5,000 unit .ROUTE .STK-MED ONE Stop: 04/06/24 10:30 Last Admin: 04/06/24 12:04 Dose: Not Given Documented By: EC Non-Admin Reason: Duplicate Medication on eMAR Heparin Sodium (Porcine) (Heparin Sod Inj 5000 Unit/Ml Vial 10 Ml) 3,300 unit INTRACATH X1 ONE Stop: 04/06/24 11:27 Last Admin: 04/06/24 11:35 Dose: 3,300 unit Documented By: EC Co-signed By: RAKESH Comments: 1.7 mls in Blue 1.6 mls in Red Heparin Sodium (Porcine) (Heparin Sod Inj 1000 Unit/Ml Vial 10 Ml) 3,300 unit INDWELLCAT PRN PRN PRN Reason: DIALYSIS Stop: 04/20/24 15:02 Last Admin: 04/15/24 12:16 Dose: 3,300 unit Documented By: CORDELL Co-signed By: DEANDRE Admin: 04/13/24 10:53 Dose: 3,300 unit Documented By: MM Co-signed By: geri Admin: 04/10/24 20:13 Dose: 3,300 unit Documented By: ED Co-signed By: Admin: 04/08/24 13:05 Dose: 3,300 unit Documented By: CORDELL Co-signed By: DEANDRE(2) Admin: 04/07/24 11:16 Dose: 3,300 unit Documented By: CORDELL Co-signed By: ELEAZAR Admin: 04/06/24 16:22 Dose: 3,300 unit Documented By: CORDELL(2) Co-signed By: BEATRIZ Heparin Sodium (Porcine) (Heparin Sod Inj 5000 Unit/Ml Vial) 5,000 unit SC Q8HR DELMY Stop: 04/23/24 07:59 Last Admin: 04/15/24 22:51 Dose: 5,000 unit Documented By: DAVID Co-signed By: VERONIKA Admin: 04/15/24 13:38 Dose: 5,000 unit Documented By: DEANDRE Co-signed By: Admin: 04/15/24 05:50 Dose: 5,000 unit Documented By: DAVID Co-signed By: MARIANA Admin: 04/14/24 21:45 Dose: 5,000 unit Documented By: DAVID Co-signed By: ALISIA Admin: 04/14/24 14:44 Dose: 5,000 unit Documented By: DEANDRE Co-signed By: geri Admin: 04/14/24 05:32 Dose: 5,000 unit Documented By: DAVID Co-signed By: JOSE DANIEL Admin: 04/13/24 21:51 Dose: 5,000 unit Documented By: DAVID Co-signed By: JOSE DANIEL Admin: 04/13/24 14:30 Dose: 5,000 unit Documented By: IRENE Co-signed By: Admin: 04/13/24 06:06 Dose: 5,000 unit Documented By: VERONIKA Co-signed By: DAVID Admin: 04/12/24 21:22 Dose: 5,000 unit Documented By: VERONIKA Co-signed By: JOSE DANIEL Admin: 04/12/24 14:14 Dose: 5,000 unit Documented By: DEANDRE Co-signed By: JAY Admin: 04/12/24 06:05 Dose: 5,000 unit Documented By: LUCY Co-signed By: CLSelina Admin: 04/11/24 21:40 Dose: 5,000 unit Documented By: LUCY Co-signed By: ANY Admin: 04/11/24 14:49 Dose: 5,000 unit Documented By: Co-signed By: JAY Admin: 04/11/24 05:08 Dose: 5,000 unit Documented By: Co-signed By: LUCY Admin: 04/10/24 21:26 Dose: 5,000 unit Documented By: Co-signed By: LUCY Admin: 04/10/24 14:57 Dose: 5,000 unit Documented By: DEANDRE Co-signed By: geri Admin: 04/10/24 05:18 Dose: 5,000 unit Documented By: DAVID Co-signed By: TIANNA Admin: 04/09/24 22:10 Dose: 5,000 unit Documented By: DAVID Co-signed By: TIANNA Admin: 04/09/24 15:00 Dose: 5,000 unit Documented By: VIGNESH Co-signed By: DEANDRE Admin: 04/09/24 09:12 Dose: 5,000 unit Documented By: VIGNESH Co-signed By: JAY Hydralazine HCl (Hydralazine Inj 20 Mg/Ml Vial) 10 mg IV X1 ONE Stop: 04/10/24 15:58 Last Admin: 04/10/24 16:04 Dose: 10 mg Documented By: SUHA Sodium Chloride (Ns) 1,000 mls @ 999 mls/hr IV .Q1H1M ONE Stop: 04/05/24 15:19 Last Infusion: 04/05/24 19:30 Dose: Infused Documented By: Admin: 04/05/24 14:53 Dose: 999 mls/hr Documented By: EDWARD Ceftriaxone Sodium 1,000 mg/ (Sodium Chloride) 50 mls @ 100 mls/hr IV X1 ONE Stop: 04/05/24 14:55 Last Infusion: 04/05/24 16:10 Dose: Infused Documented By: Admin: 04/05/24 14:54 Dose: 100 mls/hr Documented By: EDWARD Sodium Chloride (Ns) 1,000 mls @ 999 mls/hr IV .Q1H1M ONE Stop: 04/05/24 18:37 Last Admin: 04/05/24 19:34 Dose: Not Given Documented By: KG Non-Admin Reason: Cancelled by Provider Ceftriaxone Sodium/Dextrose (Rocephin/D5w 1gm Iv Premix) 50 mls @ 100 mls/hr IV QDAY [facility]MY Stop: 04/13/24 08:59 Last Infusion: 04/07/24 05:12 Dose: Infused Documented By: Admin: 04/06/24 09:01 Dose: 100 mls/hr Documented By: BEATRIZ Azithromycin 250 mg/ Sodium (Chloride) 250 mls @ 250 mls/hr IV HS DELMY Stop: 04/13/24 20:59 Albumin Human (Albuminar-25 Ivpb) 25 gm in 100 mls @ 100 mls/min IV PRN PRN PRN Reason: DIALYSIS Last Admin: 04/15/24 10:04 Dose: 100 mls/min Documented By: Infusion: 04/13/24 08:22 Dose: Infused Documented By: Admin: 04/13/24 08:21 Dose: 100 mls/min Documented By: Infusion: 04/08/24 10:04 Dose: Infused Documented By: Admin: 04/08/24 10:03 Dose: 100 mls/min Documented By: CORDELL Cefepime HCl 2 gm/ Sodium (Chloride) 50 mls @ 100 mls/hr IV Q12HR DELMY Stop: 04/13/24 18:45 Last Admin: 04/07/24 08:50 Dose: Not Given Documented By: JONAS Non-Admin Reason: Not In Room Infusion: 04/06/24 20:50 Dose: Infused Documented By: Admin: 04/06/24 20:20 Dose: 100 mls/hr Documented By: Doxycycline Hyclate 100 mg/ (Sodium Chloride) 100 mls @ 100 mls/hr IV BID DELMY Stop: 04/13/24 20:59 Last Admin: 04/09/24 10:17 Dose: Not Given Documented By: VIGNESH Non-Admin Reason: Discontinued Admin: 04/07/24 20:38 Dose: 100 mls/hr Documented By: Admin: 04/07/24 12:24 Dose: 100 mls/hr Documented By: JONAS Comments: Infusion: 04/06/24 22:04 Dose: Infused Documented By: Admin: 04/06/24 21:04 Dose: 100 mls/hr Documented By: Acetaminophen (Ofirmev Inj) 1,000 mg in 100 mls @ 250 mls/hr IV Q6HR DELMY Stop: 04/08/24 00:23 Last Admin: 04/07/24 23:49 Dose: 250 mls/hr Documented By: Infusion: 04/07/24 18:25 Dose: Infused Documented By: Admin: 04/07/24 18:01 Dose: 250 mls/hr Documented By: Admin: 04/07/24 16:08 Dose: Not Given Documented By: BEATRIZ Non-Admin Reason: Wrong Time Infusion: 04/07/24 13:24 Dose: Infused Documented By: Admin: 04/07/24 13:00 Dose: 250 mls/hr Documented By: JONAS Cefepime HCl 2 gm/ Sodium (Chloride) 50 mls @ 100 mls/hr IV QDAY [facility] Stop: 04/15/24 08:59 Calcium Gluconate/Sodium Chloride (Calcium Gluc/Ns 1000mg Ivpb) 1,000 mg in 50 mls @ 50 mls/hr IV X1 ONE Stop: 04/07/24 13:08 Last Admin: 04/07/24 13:21 Dose: 50 mls/hr Documented By: JONAS Cefepime HCl 2 gm/ Sodium (Chloride) 50 mls @ 100 mls/hr IV Q12HR [facility] Stop: 04/07/24 13:29 Last Admin: 04/07/24 13:02 Dose: 100 mls/hr Documented By: JONAS Cefepime HCl 2 gm/ Sodium (Chloride) 50 mls @ 100 mls/hr IV QDAY [facility] Stop: 04/15/24 08:59 Last Admin: 04/10/24 19:07 Dose: Not Given Documented By: geri Non-Admin Reason: held by sai Tejada given at this time Admin: 04/09/24 09:06 Dose: 100 mls/hr Documented By: Infusion: 04/08/24 13:39 Dose: Infused Documented By: Admin: 04/08/24 13:09 Dose: 100 mls/hr Documented By: DEANDRE(2) Magnesium Sulfate (Magnesium Sulfate Ivpb) 4 gm in 50 mls @ 12.5 mls/hr IV X1 ONE Stop: 04/07/24 17:52 Last Admin: 04/07/24 14:39 Dose: 12.5 mls/hr Documented By: BEATRIZ Valproic Acid 500 mg/ Sodium (Chloride) 55 mls @ 110 mls/hr IV X1 ONE Stop: 04/07/24 18:44 Last Admin: 04/09/24 10:21 Dose: Not Given Documented By: VIGNESH Non-Admin Reason: Discontinued Valproic Acid 500 mg/ Sodium (Chloride) 55 mls @ 110 mls/hr IV X1 ONE Stop: 04/07/24 19:14 Last Admin: 04/07/24 18:47 Dose: 110 mls/hr Documented By: JONAS Valproic Acid 500 mg/ Sodium (Chloride) 55 mls @ 55 mls/hr IV Q8HR [facility]MY Stop: 05/08/24 05:59 Last Admin: 04/08/24 14:57 Dose: 55 mls/hr Documented By: DEANDRE(2) Infusion: 04/08/24 07:23 Dose: Infused Documented By: DEANDRE(2) Admin: 04/08/24 06:23 Dose: 55 mls/hr Documented By: ZUNILDA Dexmedetomidine/Sodium Chloride (Precedex Ivpb) 200 mcg in 50 mls @ 5.31 mls/hr IV .Q9H25M PRN; Protocol PRN Reason: Per PROTOCOL Stop: 05/08/24 09:16 Last Titration: 04/14/24 13:38 Dose: 0 mcg/kg/hr, 0 mls/hr Documented By: Titration: 04/14/24 13:27 Dose: 1 mcg/kg/hr, 26.549 mls/hr Documented By: Titration: 04/11/24 05:00 Dose: 0 mcg/kg/hr, 0 mls/hr Documented By: Titration: 04/11/24 04:00 Dose: 0.2 mcg/kg/hr, 5.31 mls/hr Documented By: Titration: 04/11/24 03:00 Dose: 0.2 mcg/kg/hr, 5.31 mls/hr Documented By: Admin: 04/11/24 02:26 Dose: 0.2 mcg/kg/hr, 5.31 mls/hr Documented By: Co-signed By: CLSelina Norepinephrine/Dextrose (Levophed In D5w 8mg/250ml) 8 mg in 250 mls @ 9.956 mls/hr IV .Q24H PRN; Protocol PRN Reason: PER PROTOCOL Stop: 05/08/24 09:52 Last Titration: 04/15/24 21:00 Dose: 0 mcg/kg/min, 0 mls/hr Documented By: Titration: 04/15/24 20:30 Dose: 0.01 mcg/kg/min, 1.991 mls/hr Documented By: Titration: 04/15/24 20:00 Dose: 0.03 mcg/kg/min, 5.974 mls/hr Documented By: Titration: 04/15/24 19:00 Dose: 0.03 mcg/kg/min, 5.974 mls/hr Documented By: Titration: 04/15/24 18:00 Dose: 0.03 mcg/kg/min, 5.974 mls/hr Documented By: Titration: 04/15/24 17:00 Dose: 0.03 mcg/kg/min, 5.974 mls/hr Documented By: Titration: 04/15/24 16:00 Dose: 0.03 mcg/kg/min, 5.974 mls/hr Documented By: Titration: 04/15/24 15:00 Dose: 0.05 mcg/kg/min, 9.956 mls/hr Documented By: Titration: 04/15/24 14:00 Dose: 0.05 mcg/kg/min, 9.956 mls/hr Documented By: Admin: 04/15/24 12:58 Dose: 0.05 mcg/kg/min, 9.956 mls/hr Documented By: Titration: 04/14/24 20:17 Dose: Infused Documented By: Titration: 04/14/24 08:46 Dose: 0.05 mcg/kg/min, 9.956 mls/hr Documented By: Titration: 04/14/24 06:00 Dose: 0.01 mcg/kg/min, 1.991 mls/hr Documented By: Titration: 04/14/24 05:00 Dose: 0.01 mcg/kg/min, 1.991 mls/hr Documented By: Titration: 04/14/24 04:00 Dose: 0.03 mcg/kg/min, 5.974 mls/hr Documented By: Titration: 04/14/24 03:00 Dose: 0.03 mcg/kg/min, 5.974 mls/hr Documented By: Titration: 04/14/24 02:00 Dose: 0.03 mcg/kg/min, 5.974 mls/hr Documented By: Titration: 04/14/24 01:00 Dose: 0.03 mcg/kg/min, 5.974 mls/hr Documented By: Titration: 04/14/24 00:00 Dose: 0.03 mcg/kg/min, 5.974 mls/hr Documented By: Titration: 04/13/24 23:00 Dose: 0.03 mcg/kg/min, 5.974 mls/hr Documented By: Titration: 04/13/24 22:21 Dose: 0.03 mcg/kg/min, 5.974 mls/hr Documented By: Titration: 04/13/24 22:00 Dose: 0.05 mcg/kg/min, 9.956 mls/hr Documented By: Titration: 04/13/24 21:00 Dose: 0.05 mcg/kg/min, 9.956 mls/hr Documented By: Titration: 04/13/24 20:00 Dose: 0.05 mcg/kg/min, 9.956 mls/hr Documented By: Titration: 04/13/24 19:00 Dose: 0.03 mcg/kg/min, 5.974 mls/hr Documented By: Titration: 04/13/24 18:35 Dose: 0.03 mcg/kg/min, 5.974 mls/hr Documented By: Titration: 04/13/24 18:30 Dose: 0.01 mcg/kg/min, 1.991 mls/hr Documented By: Titration: 04/13/24 15:00 Dose: 0 mcg/kg/min, 0 mls/hr Documented By: Titration: 04/13/24 14:00 Dose: 0.01 mcg/kg/min, 1.991 mls/hr Documented By: Titration: 04/13/24 13:00 Dose: 0.01 mcg/kg/min, 1.991 mls/hr Documented By: Titration: 04/13/24 12:30 Dose: 0.01 mcg/kg/min, 1.991 mls/hr Documented By: Titration: 04/13/24 12:21 Dose: 0.03 mcg/kg/min, 5.974 mls/hr Documented By: Titration: 04/13/24 12:07 Dose: 0.05 mcg/kg/min, 9.956 mls/hr Documented By: Titration: 04/13/24 12:00 Dose: 0.09 mcg/kg/min, 17.921 mls/hr Documented By: Titration: 04/13/24 11:00 Dose: 0.09 mcg/kg/min, 17.921 mls/hr Documented By: Titration: 04/13/24 10:32 Dose: 0.09 mcg/kg/min, 17.921 mls/hr Documented By: Titration: 04/13/24 10:05 Dose: 0.07 mcg/kg/min, 13.938 mls/hr Documented By: Titration: 04/13/24 10:00 Dose: 0.05 mcg/kg/min, 9.956 mls/hr Documented By: Titration: 04/13/24 09:00 Dose: 0.03 mcg/kg/min, 5.974 mls/hr Documented By: Admin: 04/13/24 08:21 Dose: 0.05 mcg/kg/min, 9.956 mls/hr Documented By: Titration: 04/13/24 08:21 Dose: Infused Documented By: Titration: 04/11/24 02:35 Dose: 0 mcg/kg/min, 0 mls/hr Documented By: Titration: 04/11/24 02:00 Dose: 0.01 mcg/kg/min, 1.991 mls/hr Documented By: Titration: 04/11/24 01:00 Dose: 0.01 mcg/kg/min, 1.991 mls/hr Documented By: Titration: 04/11/24 00:21 Dose: 0.01 mcg/kg/min, 1.991 mls/hr Documented By: Titration: 04/11/24 00:10 Dose: 0.03 mcg/kg/min, 5.974 mls/hr Documented By: Titration: 04/11/24 00:00 Dose: 0.05 mcg/kg/min, 9.956 mls/hr Documented By: Titration: 04/10/24 23:46 Dose: 0 mcg/kg/min, 0 mls/hr Documented By: Titration: 04/10/24 23:00 Dose: 0.01 mcg/kg/min, 1.991 mls/hr Documented By: Titration: 04/10/24 22:36 Dose: 0.01 mcg/kg/min, 1.991 mls/hr Documented By: Titration: 04/10/24 22:00 Dose: 0.03 mcg/kg/min, 5.974 mls/hr Documented By: Titration: 04/10/24 21:00 Dose: 0.03 mcg/kg/min, 5.974 mls/hr Documented By: Titration: 04/10/24 20:10 Dose: 0.05 mcg/kg/min, 9.956 mls/hr Documented By: Titration: 04/10/24 20:00 Dose: 0.19 mcg/kg/min, 37.833 mls/hr Documented By: Titration: 04/10/24 19:38 Dose: 0.21 mcg/kg/min, 41.815 mls/hr Documented By: Titration: 04/10/24 19:26 Dose: 0.19 mcg/kg/min, 37.833 mls/hr Documented By: Titration: 04/10/24 19:23 Dose: 0.17 mcg/kg/min, 33.85 mls/hr Documented By: Titration: 04/10/24 19:18 Dose: 0.15 mcg/kg/min, 29.868 mls/hr Documented By: Titration: 04/10/24 19:10 Dose: 0.13 mcg/kg/min, 25.886 mls/hr Documented By: Titration: 04/10/24 19:03 Dose: 0.11 mcg/kg/min, 21.903 mls/hr Documented By: Titration: 04/10/24 19:00 Dose: 0.09 mcg/kg/min, 17.921 mls/hr Documented By: Titration: 04/10/24 18:00 Dose: 0.09 mcg/kg/min, 17.921 mls/hr Documented By: geri Titration: 04/10/24 17:46 Dose: 0.07 mcg/kg/min, 13.938 mls/hr Documented By: geri Admin: 04/10/24 17:41 Dose: 0.05 mcg/kg/min, 9.956 mls/hr Documented By: Titration: 04/10/24 17:41 Dose: Infused Documented By: Titration: 04/08/24 18:24 Dose: 0 mcg/kg/min, 0 mls/hr Documented By: DEANDRE(2) Titration: 04/08/24 18:00 Dose: 0.01 mcg/kg/min, 1.991 mls/hr Documented By: DEANDRE(2) Titration: 04/08/24 17:30 Dose: 0.01 mcg/kg/min, 1.991 mls/hr Documented By: DEANDRE(2) Titration: 04/08/24 17:00 Dose: 0.03 mcg/kg/min, 5.974 mls/hr Documented By: DEANDRE(2) Titration: 04/08/24 16:25 Dose: 0.03 mcg/kg/min, 5.974 mls/hr Documented By: DEANDRE(2) Titration: 04/08/24 16:00 Dose: 0.05 mcg/kg/min, 9.956 mls/hr Documented By: DEANDRE(2) Titration: 04/08/24 15:13 Dose: 0.05 mcg/kg/min, 9.956 mls/hr Documented By: DEANDRE(2) Titration: 04/08/24 15:00 Dose: 0.07 mcg/kg/min, 13.938 mls/hr Documented By: DEANDRE(2) Titration: 04/08/24 14:36 Dose: 0.07 mcg/kg/min, 13.938 mls/hr Documented By: DEANDRE(2) Titration: 04/08/24 14:02 Dose: 0.09 mcg/kg/min, 17.921 mls/hr Documented By: DEANDRE(2) Titration: 04/08/24 14:00 Dose: 0.11 mcg/kg/min, 21.903 mls/hr Documented By: DEANDRE(2) Titration: 04/08/24 13:00 Dose: 0.11 mcg/kg/min, 21.903 mls/hr Documented By: DEANDRE(2) Titration: 04/08/24 12:00 Dose: 0.11 mcg/kg/min, 21.903 mls/hr Documented By: DEANDRE(2) Titration: 04/08/24 11:30 Dose: 0.11 mcg/kg/min, 21.903 mls/hr Documented By: DEANDRE(2) Titration: 04/08/24 11:00 Dose: 0.11 mcg/kg/min, 21.903 mls/hr Documented By: DEANDRE(2) Titration: 04/08/24 10:30 Dose: 0.11 mcg/kg/min, 21.903 mls/hr Documented By: DEANDRE(2) Titration: 04/08/24 10:15 Dose: 0.09 mcg/kg/min, 17.921 mls/hr Documented By: DEANDRE(2) Titration: 04/08/24 10:04 Dose: 0.07 mcg/kg/min, 13.938 mls/hr Documented By: DEANDRE(2) Admin: 04/08/24 10:00 Dose: 0.05 mcg/kg/min, 9.956 mls/hr Documented By: DEANDRE(2) Doxycycline Hyclate 100 mg/ (Sodium Chloride) 100 mls @ 100 mls/hr IV BID [facility]MY Stop: 04/13/24 20:59 Last Admin: 04/11/24 06:47 Dose: Not Given Documented By: Non-Admin Reason: Discontinued Admin: 04/09/24 22:08 Dose: 100 mls/hr Documented By: Infusion: 04/09/24 10:11 Dose: Infused Documented By: Admin: 04/09/24 09:11 Dose: 100 mls/hr Documented By: Infusion: 04/08/24 22:55 Dose: Infused Documented By: Admin: 04/08/24 21:55 Dose: 100 mls/hr Documented By: Infusion: 04/08/24 14:50 Dose: Infused Documented By: Admin: 04/08/24 13:50 Dose: 100 mls/hr Documented By: DEANDRE(2) Valproic Acid 750 mg/ Sodium (Chloride) 57.5 mls @ 55 mls/hr IV Q8HR [facility] Stop: 05/08/24 21:59 Last Admin: 04/11/24 05:03 Dose: 55 mls/hr Documented By: Infusion: 04/10/24 22:23 Dose: Infused Documented By: Admin: 04/10/24 21:20 Dose: 55 mls/hr Documented By: Infusion: 04/10/24 16:20 Dose: Infused Documented By: Admin: 04/10/24 15:17 Dose: 55 mls/hr Documented By: Infusion: 04/10/24 06:18 Dose: Infused Documented By: Admin: 04/10/24 05:15 Dose: 55 mls/hr Documented By: Infusion: 04/09/24 23:12 Dose: Infused Documented By: Admin: 04/09/24 22:09 Dose: 55 mls/hr Documented By: Infusion: 04/09/24 16:03 Dose: Infused Documented By: Admin: 04/09/24 15:00 Dose: 55 mls/hr Documented By: Infusion: 04/09/24 07:20 Dose: Infused Documented By: Admin: 04/09/24 06:17 Dose: 55 mls/hr Documented By: Infusion: 04/08/24 22:58 Dose: Infused Documented By: Admin: 04/08/24 21:55 Dose: 55 mls/hr Documented By: LUCY Valproic Acid 500 mg/ Sodium (Chloride) 55 mls @ 110 mls/hr IV X1 ONE Stop: 04/08/24 18:44 Last Admin: 04/08/24 18:27 Dose: 110 mls/hr Documented By: DEANDRE(2) Methylprednisolone Sodium Succinate 250 mg/ Sodium Chloride 104 mls @ 104 mls/hr IV Q6HR [facility] Stop: 04/16/24 11:59 Last Admin: 04/10/24 13:27 Dose: Not Given Documented By: geri Non-Admin Reason: Cancelled by Provider Admin: 04/10/24 05:15 Dose: 104 mls/hr Documented By: Infusion: 04/10/24 00:54 Dose: Infused Documented By: Admin: 04/09/24 23:54 Dose: 104 mls/hr Documented By: Infusion: 04/09/24 19:13 Dose: Infused Documented By: Admin: 04/09/24 18:13 Dose: 104 mls/hr Documented By: Infusion: 04/09/24 13:46 Dose: Infused Documented By: Admin: 04/09/24 12:46 Dose: 104 mls/hr Documented By: VIGNESH Vancomycin/Sodium Chloride (Vancomycin/Ns 1 Gm Ivpb) 200 mls @ 120 mls/hr IV X1 ONE Stop: 04/10/24 11:39 Last Admin: 04/10/24 13:12 Dose: 120 mls/hr Documented By: geri Fentanyl Citrate (Sublimaze Inj 2,500 Mcg/250 Ml Bag) 2,500 mcg in 250 mls @ 2.5 mls/hr IV .Q24H PRN; Protocol PRN Reason: PER PROTOCOL Stop: 04/15/24 09:46 Propofol (Diprivan Ivpb) 1,000 mg in 100 mls @ 2.955 mls/hr IV .Q24H PRN; Protocol PRN Reason: PER PROTOCOL Stop: 05/10/24 09:49 Lactated Ringer's (Lactated Ringers) 1,000 mls @ 999 mls/hr IV .Q1H1M ONE Stop: 04/10/24 10:56 Last Admin: 04/10/24 13:13 Dose: Not Given Documented By: geri Non-Admin Reason: held per MD Arango Ampicillin Sodium 2,000 mg/ (Sodium Chloride) 100 mls @ 200 mls/hr IV [id number] [facility] Stop: 04/17/24 15:59 Last Infusion: 04/10/24 21:49 Dose: Infused Documented By: Admin: 04/10/24 21:19 Dose: 200 mls/hr Documented By: Potassium Chloride (Kcl Ivpb) 10 meq in 100 mls @ 100 mls/hr IV X1 ONE Stop: 04/11/24 00:15 Last Infusion: 04/11/24 00:33 Dose: Infused Documented By: Admin: 04/10/24 23:33 Dose: 100 mls/hr Documented By: Valproic Acid 750 mg/ Sodium (Chloride) 57.5 mls @ 55 mls/hr IV Q8HR [facility] Stop: 05/08/24 21:59 Last Admin: 04/15/24 22:51 Dose: 55 mls/hr Documented By: Infusion: 04/15/24 14:40 Dose: Infused Documented By: Admin: 04/15/24 13:37 Dose: 55 mls/hr Documented By: Infusion: 04/15/24 06:53 Dose: Infused Documented By: Admin: 04/15/24 05:50 Dose: 55 mls/hr Documented By: Infusion: 04/14/24 22:48 Dose: Infused Documented By: Admin: 04/14/24 21:45 Dose: 55 mls/hr Documented By: Infusion: 04/14/24 15:51 Dose: Infused Documented By: Admin: 04/14/24 14:48 Dose: 55 mls/hr Documented By: Infusion: 04/14/24 06:34 Dose: Infused Documented By: Admin: 04/14/24 05:31 Dose: 55 mls/hr Documented By: Infusion: 04/13/24 22:57 Dose: Infused Documented By: Admin: 04/13/24 21:54 Dose: 55 mls/hr Documented By: Infusion: 04/13/24 15:44 Dose: Infused Documented By: Admin: 04/13/24 14:41 Dose: 55 mls/hr Documented By: Infusion: 04/13/24 06:23 Dose: Infused Documented By: Admin: 04/13/24 05:20 Dose: 55 mls/hr Documented By: Infusion: 04/12/24 22:24 Dose: Infused Documented By: Admin: 04/12/24 21:21 Dose: 55 mls/hr Documented By: Infusion: 04/12/24 15:11 Dose: Infused Documented By: Admin: 04/12/24 14:08 Dose: 55 mls/hr Documented By: Infusion: 04/12/24 07:34 Dose: Infused Documented By: Admin: 04/12/24 06:31 Dose: 55 mls/hr Documented By: Infusion: 04/11/24 22:43 Dose: Infused Documented By: Admin: 04/11/24 21:40 Dose: 55 mls/hr Documented By: Infusion: 04/11/24 15:52 Dose: Infused Documented By: Admin: 04/11/24 14:49 Dose: 55 mls/hr Documented By: MR Cefepime HCl 1 gm/ Sodium (Chloride) 50 mls @ 100 mls/hr IV X1 ONE Stop: 04/11/24 09:29 Last Admin: 04/11/24 09:40 Dose: 100 mls/hr Documented By: MR Cefepime HCl 1 gm/ Sodium (Chloride) 50 mls @ 100 mls/hr IV [id number]@1600 DELMY; Protocol Stop: 04/17/24 15:59 Vancomycin/Sodium Chloride (Vancomycin/Ns 500 Mg Ivpb) 100 mls @ 120 mls/hr IV X1 ONE Stop: 04/11/24 10:49 Last Admin: 04/11/24 10:05 Dose: 120 mls/hr Documented By: MR Amiodarone HCl/Dextrose (Nexterone Ivpb) 150 mg in 100 mls @ 600 mls/hr IV .Q10M ONE Stop: 04/11/24 19:57 Last Admin: 04/11/24 19:55 Dose: 600 mls/hr Documented By: JOSE DANIEL Amiodarone HCl/Dextrose (Nexterone Ivpb) 360 mg in 200 mls @ 33.333 mls/hr IV .Q6H ONE Stop: 04/12/24 01:47 Last Admin: 04/11/24 20:06 Dose: 33.333 mls/hr Documented By: JOSE DANIEL Amiodarone HCl/Dextrose (Nexterone Ivpb) 360 mg in 200 mls @ 16.667 mls/hr IV .Q12H DELMY Stop: 04/13/24 01:47 Last Admin: 04/12/24 14:12 Dose: 16.667 mls/hr Documented By: Infusion: 04/12/24 14:12 Dose: Infused Documented By: Admin: 04/12/24 02:30 Dose: 16.667 mls/hr Documented By: LUYC Amiodarone HCl/Dextrose (Nexterone Ivpb) Confirm Administered Dose 150 mg in 100 mls @ ud IV .STK-MED ONE Stop: 04/11/24 19:43 Last Admin: 04/11/24 20:35 Dose: Not Given Documented By: CLT Non-Admin Reason: Duplicate Medication on eMAR Magnesium Sulfate (Magnesium Sulfate Ivpb) 2 gm in 50 mls @ 25 mls/hr IV X1 ONE Stop: 04/11/24 21:51 Last Admin: 04/11/24 20:08 Dose: 25 mls/hr Documented By: JOSE DANIEL Amiodarone HCl/Dextrose (Nexterone Ivpb) Confirm Administered Dose 360 mg in 200 mls @ ud IV .STK-MED ONE Stop: 04/11/24 19:45 Last Admin: 04/11/24 20:36 Dose: Not Given Documented By: CLT Non-Admin Reason: Duplicate Medication on eMAR Phenylephrine HCl 40 mg/ (Sodium Chloride) 100 mls @ 1.422 mls/hr IV .Q24H PRN; Protocol PRN Reason: Per Cardiogenic Protocol Stop: 05/11/24 20:10 Meropenem 500 mg/ Sodium (Chloride) 50 mls @ 100 mls/hr IV QDAY [facility] Stop: 04/20/24 09:59 Last Admin: 04/14/24 12:06 Dose: 100 mls/hr Documented By: Infusion: 04/13/24 12:06 Dose: Infused Documented By: Admin: 04/13/24 11:36 Dose: 100 mls/hr Documented By: IRENE Comments: late administration, pt in dialysis Immune Globulin 20 gm/ Immune Globulin 10 gm/ Immune Globulin 8 gm/ IV Miscellaneous Supplies 380 mls @ 63.333 mls/hr IV QDAY@1200 DELMY Stop: 04/18/24 17:59 Immune Globulin 20 gm/ Immune Globulin 5 gm/ IV Miscellaneous Supplies 250 mls @ 41.667 mls/hr IV QDAY@1200 DELMY Stop: 04/18/24 17:59 Last Admin: 04/15/24 12:35 Dose: 41.667 mls/hr Documented By: Infusion: 04/14/24 20:22 Dose: Infused Documented By: Admin: 04/14/24 14:22 Dose: 41.667 mls/hr Documented By: Infusion: 04/13/24 21:05 Dose: Infused Documented By: Admin: 04/13/24 15:05 Dose: 41.667 mls/hr Documented By: IRENE Insulin Human Regular (Myxredlin) 100 unit in 100 mls @ 9.52 mls/hr IV .[id number] PRN; Protocol PRN Reason: PER PROTOCOL Stop: 05/14/24 11:03 Last Titration: 04/15/24 12:00 Dose: 0 unit/kg/hr, 0 mls/hr Documented By: DEANDRE Co-signed By: JAY Titration: 04/15/24 11:00 Dose: 0.025 unit/kg/hr, 2.38 mls/hr Documented By: DEANDRE Co-signed By: JAY Titration: 04/15/24 10:02 Dose: 0.05 unit/kg/hr, 4.76 mls/hr Documented By: DEANDRE Co-signed By: AG Titration: 04/15/24 10:00 Dose: 0.25 unit/kg/hr, 23.8 mls/hr Documented By: DEANDRE Co-signed By: AG Titration: 04/15/24 09:00 Dose: 0.25 unit/kg/hr, 23.8 mls/hr Documented By: DEANDRE Co-signed By: AG Titration: 04/15/24 08:00 Dose: 0.025 unit/kg/hr, 2.38 mls/hr Documented By: DEANDRE Co-signed By: ER(2) Admin: 04/15/24 07:11 Dose: 0.025 unit/kg/hr, 2.38 mls/hr Documented By: DEANDRE Co-signed By: DAVID Titration: 04/15/24 07:11 Dose: Infused Documented By: DEANDRE Co-signed By: DAVID Titration: 04/15/24 07:08 Dose: 0.025 unit/kg/hr, 2.38 mls/hr Documented By: DEANDRE Co-signed By: GG Titration: 04/15/24 06:00 Dose: 0.05 unit/kg/hr, 4.76 mls/hr Documented By: DAVID Co-signed By: MLD Titration: 04/15/24 05:00 Dose: 0.05 unit/kg/hr, 4.76 mls/hr Documented By: DAVID Co-signed By: MLD Titration: 04/15/24 04:00 Dose: 0.05 unit/kg/hr, 4.76 mls/hr Documented By: DAVID Co-signed By: MLD Titration: 04/15/24 03:00 Dose: 0.05 unit/kg/hr, 4.76 mls/hr Documented By: DAVID Co-signed By: MLD Titration: 04/15/24 02:00 Dose: 0.05 unit/kg/hr, 4.76 mls/hr Documented By: DAVID Co-signed By: CRUMP Titration: 04/15/24 01:00 Dose: 0.025 unit/kg/hr, 2.38 mls/hr Documented By: DAVID Co-signed By: CLT Titration: 04/15/24 00:00 Dose: 0.025 unit/kg/hr, 2.38 mls/hr Documented By: DAVID Co-signed By: CLT Titration: 04/14/24 23:00 Dose: 0.025 unit/kg/hr, 2.38 mls/hr Documented By: DAVID Co-signed By: MLD Titration: 04/14/24 22:00 Dose: 0.025 unit/kg/hr, 2.38 mls/hr Documented By: DAVID Co-signed By: CLT Titration: 04/14/24 21:00 Dose: 0.05 unit/kg/hr, 4.76 mls/hr Documented By: DAVID Co-signed By: MLD Titration: 04/14/24 20:00 Dose: 0.05 unit/kg/hr, 4.76 mls/hr Documented By: DAVID Co-signed By: MLD Titration: 04/14/24 19:00 Dose: 0.05 unit/kg/hr, 4.76 mls/hr Documented By: DAVID Co-signed By: geri Titration: 04/14/24 18:00 Dose: 0.1 unit/kg/hr, 9.52 mls/hr Documented By: DEANDRE Co-signed By: geri Titration: 04/14/24 18:00 Dose: 0.1 unit/kg/hr, 9.52 mls/hr Documented By: DEANDRE Co-signed By: geri Titration: 04/14/24 17:00 Dose: 0.1 unit/kg/hr, 9.52 mls/hr Documented By: DEANDRE Co-signed By: geri Admin: 04/14/24 16:00 Dose: 0.1 unit/kg/hr, 9.52 mls/hr Documented By: DEANDRE Co-signed By: VIGNESH Vancomycin/Sodium Chloride (Vancomycin/Ns 1 Gm Ivpb) 200 mls @ 120 mls/hr IV X1 ONE Stop: 04/15/24 11:39 Last Admin: 04/15/24 11:24 Dose: 120 mls/hr Documented By: DEANDRE Albumin Human (Albuminar-25 Ivpb) 25 gm in 100 mls @ 100 mls/hr IV PRN PRN PRN Reason: DIALYSIS Phenylephrine HCl 40 mg/ (Sodium Chloride) 100 mls @ 1.443 mls/hr IV .Q24H PRN; Protocol PRN Reason: Per Cardiogenic Protocol Stop: 05/16/24 01:13 Influenza Virus Vaccine Quadrival (Influenza Virus Quadrivalent 0.5 Ml Syringe) 0.5 ml IMi .ONCE ONE Stop: 04/07/24 12:01 Last Admin: 04/09/24 10:18 Dose: Not Given Documented By: VIGNESH Non-Admin Reason: Not Given Insulin Glargine (Insulin Glargine (Lantus) 5 Unit/0.05 Ml (Per 5 Units)) 6 unit SC QDAY [facility] Stop: 05/06/24 12:14 Last Admin: 04/07/24 08:50 Dose: Not Given Documented By: JONAS Non-Admin Reason: Not In Room Admin: 04/06/24 12:31 Dose: 6 unit Documented By: BEATRIZ Co-signed By: BOYD Insulin Glargine (Insulin Glargine (Lantus) 5 Unit/0.05 Ml (Per 5 Units)) 6 unit SC QAM [facility] Stop: 05/08/24 08:59 Last Admin: 04/09/24 10:17 Dose: Not Given Documented By: VIGNESH Non-Admin Reason: Discontinued Insulin Glargine (Insulin Glargine (Lantus) 5 Unit/0.05 Ml (Per 5 Units)) 16 unit SC X1 ONE Stop: 04/08/24 09:21 Last Admin: 04/09/24 10:17 Dose: Not Given Documented By: VIGNESH Non-Admin Reason: Discontinued Insulin Glargine (Insulin Glargine (Lantus) 5 Unit/0.05 Ml (Per 5 Units)) [facility] [place] [place] Stop: 05/08/24 08:59 Insulin Glargine (Insulin Glargine (Lantus) 5 Unit/0.05 Ml (Per 5 Units)) [facility] [place] Stop: 05/09/24 08:59 Last Admin: 04/09/24 09:15 Dose: 10 unit Documented By: VIGNESH Co-signed By: JAY Insulin Glargine (Insulin Glargine (Lantus) 5 Unit/0.05 Ml (Per 5 Units)) [facility] [place] Stop: 05/10/24 08:59 Insulin Glargine (Insulin Glargine (Lantus) 5 Unit/0.05 Ml (Per 5 Units)) 20 unit SC QAM [facility] Stop: 05/10/24 08:59 Last Admin: 04/11/24 08:11 Dose: 20 unit Documented By: Co-signed By: JAY Admin: 04/10/24 08:22 Dose: 20 unit Documented By: CECELIA Co-signed By: BEATRIZ Insulin Glargine (Insulin Glargine (Lantus) 5 Unit/0.05 Ml (Per 5 Units)) 10 unit SC QDAY ONE Stop: 04/10/24 07:37 Last Admin: 04/11/24 06:47 Dose: Not Given Documented By: MR Non-Admin Reason: Discontinued Insulin Glargine (Insulin Glargine (Lantus) 5 Unit/0.05 Ml (Per 5 Units)) 20 unit SC X1 ONE Stop: 04/10/24 17:23 Last Admin: 04/10/24 19:09 Dose: 20 unit Documented By: DEANDRE Co-signed By: SUHA Insulin Glargine (Insulin Glargine (Lantus) 5 Unit/0.05 Ml (Per 5 Units)) 20 unit SC X1 ONE Stop: 04/11/24 10:04 Last Admin: 04/11/24 10:13 Dose: 20 unit Documented By: Co-signed By: JAY Insulin Glargine (Insulin Glargine (Lantus) 5 Unit/0.05 Ml (Per 5 Units)) 40 unit SC QAM [facility] Stop: 05/12/24 08:59 Last Admin: 04/12/24 11:29 Dose: Not Given Documented By: JAY Non-Admin Reason: Discontinued Insulin Glargine (Insulin Glargine (Lantus) 5 Unit/0.05 Ml (Per 5 Units)) 50 unit SC QAM [facility] Stop: 05/13/24 08:59 Insulin Glargine (Insulin Glargine (Lantus) 5 Unit/0.05 Ml (Per 5 Units)) 50 unit SC QDAY [facility] Stop: 05/12/24 10:29 Last Admin: 04/13/24 08:50 Dose: 50 unit Documented By: IRENE Co-signed By: geri Admin: 04/12/24 10:29 Dose: 50 unit Documented By: DEANDRE Co-signed By: JAY Insulin Glargine (Insulin Glargine (Lantus) 5 Unit/0.05 Ml (Per 5 Units)) 10 unit SC X1 ONE Stop: 04/13/24 09:48 Last Admin: 04/13/24 10:17 Dose: Not Given Documented By: IRENE Non-Admin Reason: Per MD. Bertrand do not give Insulin Glargine (Insulin Glargine (Lantus) 5 Unit/0.05 Ml (Per 5 Units)) 60 unit SC QDAY [facility] Stop: 05/14/24 08:59 Last Admin: 04/14/24 08:33 Dose: 60 unit Documented By: DEANDRE Co-signed By: DEANDRE(2) Insulin Glargine (Insulin Glargine (Lantus) 5 Unit/0.05 Ml (Per 5 Units)) 50 unit SC X1 ONE Stop: 04/15/24 11:46 Last Admin: 04/15/24 12:25 Dose: 50 unit Documented By: DEANDRE Co-signed By: LINDA(2) Insulin Human Lispro (Insulin Lispro (Admelog) 1 Unit/0.01 Ml Unit) 0 unit SC Q6HR [facility]; Protocol Stop: 05/07/24 11:59 Last Admin: 04/09/24 06:17 Dose: 2 unit Documented By: LUCY Co-signed By: ABDULLAHI Admin: 04/09/24 00:30 Dose: 3 unit Documented By: LUCY Co-signed By: ABDULLAHI Admin: 04/08/24 18:27 Dose: 2 unit Documented By: DEANDRE(2) Co-signed By: LINDA(2) Admin: 04/08/24 13:10 Dose: 1 unit Documented By: DEANDRE(2) Co-signed By: LINDA(2) Comments: admin per Dr. Christopher Admin: 04/08/24 06:26 Dose: 3 unit Documented By: ZUNILDA Co-signed By: JULY Admin: 04/07/24 23:33 Dose: Not Given Documented By: ZUNILDA Non-Admin Reason: NPO Admin: 04/07/24 18:40 Dose: 2 unit Documented By: JONAS Co-signed By: BEATRIZ Admin: 04/07/24 13:10 Dose: 2 unit Documented By: JONAS Co-signed By: BEATRIZ Insulin Human Lispro (Insulin Lispro (Admelog) 1 Unit/0.01 Ml Unit) 0 unit SC Q6HR [facility]; Protocol Stop: 05/07/24 11:59 Last Admin: 04/10/24 13:08 Dose: 6 unit Documented By: geri Co-signed By: DEANDRE Admin: 04/10/24 05:21 Dose: 6 unit Documented By: DAVID Co-signed By: TIANNA Comments: PER MD STYLES Admin: 04/09/24 23:55 Dose: 6 unit Documented By: DAVID Co-signed By: TIANNA Admin: 04/09/24 18:11 Dose: 5 unit Documented By: VIGNESH Co-signed By: DEANDRE Admin: 04/09/24 12:41 Dose: 4 unit Documented By: VIGNESH Co-signed By: IRENE Insulin Human Lispro (Insulin Lispro (Admelog) 1 Unit/0.01 Ml Unit) 0 unit SC Q4HR [facility]; Protocol Stop: 05/10/24 13:59 Last Admin: 04/14/24 05:32 Dose: 6 unit Documented By: DAVID Co-signed By: JOSE DANIEL Admin: 04/14/24 01:53 Dose: 6 unit Documented By: DAVID Co-signed By: JOSE DANIEL Admin: 04/13/24 21:51 Dose: 6 unit Documented By: DAVID Co-signed By: JOSE DANIEL Admin: 04/13/24 18:24 Dose: 5 unit Documented By: IRENE Co-signed By: Admin: 04/13/24 14:35 Dose: 5 unit Documented By: IRENE Co-signed By: Admin: 04/13/24 10:20 Dose: 3 unit Documented By: IRENE Co-signed By: geri Admin: 04/13/24 06:05 Dose: 6 unit Documented By: VERONIKA Co-signed By: KITA Admin: 04/13/24 02:17 Dose: 5 unit Documented By: VERONIKA Co-signed By: JOSE DANIEL Admin: 04/12/24 22:09 Dose: 5 unit Documented By: VERONIKA Co-signed By: JOSE DANIEL Admin: 04/12/24 18:14 Dose: 5 unit Documented By: DEANDRE Co-signed By: JAY Admin: 04/12/24 14:18 Dose: 6 unit Documented By: DEANDRE Co-signed By: JAY Comments: Admin: 04/12/24 10:24 Dose: 6 unit Documented By: DEANDRE Co-signed By: JAY Admin: 04/12/24 06:01 Dose: 6 unit Documented By: LUCY Co-signed By: JOSE DANIEL Admin: 04/12/24 02:15 Dose: 6 unit Documented By: LUCY Co-signed By: CLT Admin: 04/11/24 22:45 Dose: 6 unit Documented By: LUCY Co-signed By: JOSE DANIEL Admin: 04/11/24 18:04 Dose: 6 unit Documented By: Co-signed By: JAY Admin: 04/11/24 14:55 Dose: 6 unit Documented By: Co-signed By: JAY Comments: Admin: 04/11/24 10:14 Dose: 6 unit Documented By: Co-signed By: JAY Admin: 04/11/24 07:02 Dose: Not Given Documented By: Non-Admin Reason: per MD King Admin: 04/11/24 02:36 Dose: Not Given Documented By: Non-Admin Reason: MD King entered new insulin order Admin: 04/10/24 22:08 Dose: 6 unit Documented By: Co-signed By: LUCY Admin: 04/10/24 19:05 Dose: Not Given Documented By: SUHA Non-Admin Reason: TO ENTER IN 20 UNITS X1 Admin: 04/10/24 15:40 Dose: Not Given Documented By: DEANDRE Non-Admin Reason: Duplicate Medication on eMAR Comments: placed one time order in place of current regimen Insulin Human Lispro (Insulin Lispro (Admelog) 1 Unit/0.01 Ml Unit) 20 unit SC X1 ONE Stop: 04/10/24 14:42 Last Admin: 04/11/24 06:48 Dose: Not Given Documented By: Non-Admin Reason: Discontinued Insulin Human Lispro (Insulin Lispro (Admelog) 1 Unit/0.01 Ml Unit) 30 unit SC X1 ONE Stop: 04/10/24 14:55 Last Admin: 04/10/24 15:01 Dose: 30 unit Documented By: DEANDRE Co-signed By: geri Comments: Insulin Human Lispro (Insulin Lispro (Admelog) 1 Unit/0.01 Ml Unit) 20 unit SC X1 ONE Stop: 04/10/24 19:00 Last Admin: 04/10/24 19:10 Dose: 20 unit Documented By: DEANDRE Co-signed By: SUHA Insulin Human Lispro (Insulin Lispro (Admelog) 1 Unit/0.01 Ml Unit) 15 unit SC X1 ONE Stop: 04/10/24 23:16 Last Admin: 04/11/24 00:30 Dose: 15 unit Documented By: Co-signed By: LUCY Comments: per MD king, administer kcl IV first then administer insulin after kcl transfusion Insulin Human Lispro (Insulin Lispro (Admelog) 1 Unit/0.01 Ml Unit) 20 unit SC X1 ONE Stop: 04/11/24 02:13 Last Admin: 04/11/24 02:32 Dose: 20 unit Documented By: Co-signed By: LUCY Insulin Human Lispro (Insulin Lispro (Admelog) 1 Unit/0.01 Ml Unit) 20 unit SC X1 ONE Stop: 04/11/24 16:32 Last Admin: 04/11/24 16:44 Dose: 20 unit Documented By: Co-signed By: JAY Insulin Human Lispro (Insulin Lispro (Admelog) 1 Unit/0.01 Ml Unit) 20 unit SC X1 ONE Stop: 04/12/24 12:17 Last Admin: 04/12/24 12:33 Dose: 20 unit Documented By: DEANDRE Co-signed By: JAY Insulin Human Lispro (Insulin Lispro (Admelog) 1 Unit/0.01 Ml Unit) 0 unit SC Q4HR [facility]; Protocol Stop: 05/15/24 17:59 Last Admin: 04/15/24 22:52 Dose: 1 unit Documented By: DAVID Co-signed By: VERONIKA Admin: 04/15/24 18:32 Dose: 3 unit Documented By: DEANDRE Co-signed By: Insulin Human Regular (Insulin Hum Regular 1 Unit/0.01 Ml (Per Unit)) 10 unit IV X1 ONE Stop: 04/10/24 09:17 Last Admin: 04/11/24 06:47 Dose: Not Given Documented By: Non-Admin Reason: Discontinued Insulin Human Regular (Insulin Hum Regular 1 Unit/0.01 Ml (Per Unit)) 15 unit IV X1 ONE Stop: 04/10/24 09:23 Last Admin: 04/10/24 09:30 Dose: 15 unit Documented By: CECELIA Co-signed By: Ketorolac Tromethamine (Ketorolac Inj 60 Mg/2 Ml Vial) 30 mg IM X1 ONE Stop: 04/07/24 08:02 Last Admin: 04/07/24 08:40 Dose: Not Given Documented By: JONAS Non-Admin Reason: Not In Room Labetalol HCl (Labetalol Inj 5 Mg/Ml Vial 20 Ml) 10 mg IVP X1 PRN PRN Reason: BP >220/110 Stop: 05/05/24 23:54 Labetalol HCl (Labetalol Inj 5 Mg/Ml Vial 20 Ml) 10 mg IVP X1 ONE Stop: 04/10/24 17:00 Last Admin: 04/10/24 17:59 Dose: Not Given Documented By: DA Non-Admin Reason: Vital Signs Lidocaine HCl (Lidocaine Inj Pf 1% 30 Ml Vial) Confirm Administered Dose 30 ml .ROUTE .STK-MED ONE Stop: 04/06/24 10:31 Last Admin: 04/06/24 12:05 Dose: Not Given Documented By: EC Non-Admin Reason: Duplicate Medication on eMAR Lidocaine HCl (Lidocaine Inj Pf 1% 5 Ml Vial) 9 ml INFL X1 PRN; Protocol PRN Reason: LOCAL ANESTHESIA Lidocaine HCl (Lidocaine Hcl 1% 20 Ml Vial) 20 ml INFL X1 ONE Stop: 04/10/24 13:09 Last Admin: 04/10/24 13:48 Dose: 20 ml Documented By: geri Comments: 5ml used during bronchoscopy Lorazepam (Lorazepam 2 Mg/Ml Vial) 1 mg IV X1 ONE Stop: 04/07/24 12:01 Last Admin: 04/07/24 13:06 Dose: Not Given Documented By: KD Non-Admin Reason: Cancelled by Provider Lorazepam (Lorazepam 2 Mg/Ml Vial) Confirm Administered Dose 2 mg .ROUTE .STK-MED ONE Stop: 04/07/24 11:52 Last Admin: 04/07/24 16:09 Dose: Not Given Documented By: JRR Non-Admin Reason: Discontinued Lorazepam (Lorazepam 2 Mg/Ml Vial) 2 mg IVP PRN ONE Stop: 04/08/24 18:44 Last Admin: 04/08/24 23:16 Dose: 2 mg Documented By: BB Lorazepam (Lorazepam 2 Mg/Ml Vial) 2 mg IVP X1 ONE Stop: 04/09/24 16:54 Last Admin: 04/09/24 17:30 Dose: 2 mg Documented By: ZJaime Lorazepam (Lorazepam 2 Mg/Ml Vial) Confirm Administered Dose 2 mg .ROUTE .STK-MED ONE Stop: 04/09/24 16:50 Last Admin: 04/09/24 18:13 Dose: Not Given Documented By: ZP Non-Admin Reason: Stock Med. Methylprednisolone Sodium Succinate (Methylprednisolone Sod Succ 62.5 Mg/Ml 2ml Vial) 250 mg IVP Q6HR [facility] Stop: 04/16/24 11:59 Metoprolol Succinate (Metoprolol Succinate Xl 25 Mg Tabcr) 50 mg GT QDAY [facility] Stop: 05/12/24 18:59 Last Admin: 04/15/24 10:04 Dose: Not Given Documented By: DEANDRE Non-Admin Reason: Pt hypotensive Admin: 04/14/24 08:32 Dose: 50 mg Documented By: Admin: 04/13/24 11:35 Dose: 50 mg Documented By: IRENE Comments: late administration, pt in dialysis Admin: 04/12/24 20:15 Dose: 50 mg Documented By: VERONIKA Metoprolol Tartrate (Metoprolol Tartrate Inj 1 Mg/Ml Amp 5 Ml) 2.5 mg IVP X1 ONE Stop: 04/11/24 19:56 Last Admin: 04/11/24 20:05 Dose: 2.5 mg Documented By: JOSE DANIEL Metoprolol Tartrate (Metoprolol Tartrate 25 Mg Tablet) 25 mg GT BID [facility] Stop: 05/16/24 08:59 Naloxone HCl (Naloxone Inj 0.4 Mg/Ml Vial) Confirm Administered Dose 0.4 mg .ROUTE .STK-MED ONE Stop: 04/06/24 10:30 Last Admin: 04/06/24 12:04 Dose: Not Given Documented By: EC Non-Admin Reason: Duplicate Medication on eMAR Ondansetron HCl (Ondansetron Inj 2 Mg/Ml Inj 2 Ml) 4 mg IV Q6H PRN; Protocol PRN Reason: NAUSEA OR VOMITING Stop: 05/05/24 23:05 Ondansetron HCl (Ondansetron Inj 2 Mg/Ml Inj 2 Ml) Confirm Administered Dose 4 mg .ROUTE .STK-MED ONE Stop: 04/06/24 10:30 Last Admin: 04/06/24 12:04 Dose: Not Given Documented By: EC Non-Admin Reason: Duplicate Medication on eMAR Oxycodone/Acetaminophen (Oxycodone/Apap 5/325 Tablet) 1 tab PO Q6H PRN PRN Reason: PAIN SCALE 4-6 (Moderate Stop: 04/10/24 23:05 Pantoprazole Sodium (Pantoprazole Inj 40 Mg Vial) 40 mg IVP QDAY [facility] Stop: 05/06/24 08:59 Last Admin: 04/15/24 09:35 Dose: 40 mg Documented By: Admin: 04/14/24 08:32 Dose: 40 mg Documented By: Admin: 04/13/24 08:50 Dose: 40 mg Documented By: Admin: 04/12/24 09:53 Dose: 40 mg Documented By: Admin: 04/11/24 08:07 Dose: 40 mg Documented By: Admin: 04/10/24 08:22 Dose: 40 mg Documented By: Admin: 04/09/24 09:05 Dose: 40 mg Documented By: Admin: 04/08/24 12:13 Dose: 40 mg Documented By: DEANDRE(2) Admin: 04/07/24 12:23 Dose: 40 mg Documented By: JONAS Comments: was @ dialysis Admin: 04/06/24 09:01 Dose: 40 mg Documented By: BEATRIZ Pharmacy Consult (Pharmacy Renal Dose Adjustment 1 Ea) 1 each XX QDAY [facility] Stop: 05/08/24 08:59 Last Admin: 04/09/24 09:06 Dose: Not Given Documented By: VIGNESH Non-Admin Reason: PHARMACY TO DOSE. Admin: 04/08/24 12:47 Dose: Not Given Documented By: DEANDRE(2) Non-Admin Reason: pharmacyrenal dose adjustment Pharmacy Consult (Pharmacy Renal Dose Adjustment 1 Ea) 1 each XX QDAY PRN PRN Reason: protocol Stop: 05/08/24 08:59 Pharmacy Consult (Vancomycin Pharmacy To Dose 1 Each Each) 1 each IV QDAY PRN PRN Reason: CONSULT Stop: 05/10/24 09:29 Pharmacy Consult (Vancomycin Pharmacy To Dose 1 Each Each) 1 each IV QDAY PRN PRN Reason: PROTOCOL Stop: 05/10/24 13:14 Pharmacy Consult (Vancomycin Pharmacy To Dose 1 Each Each) 1 each IV QDAY PRN PRN Reason: PROTOCOL Stop: 05/11/24 08:59 Pharmacy Consult (Vancomycin Pharmacy To Dose 1 Each Each) 1 each IV QDAY PRN PRN Reason: CONSULT Stop: 05/15/24 09:59 Pharmacy Consult (Vancomycin Pharmacy To Dose 1 Each Each) 1 each IV QDAY PRN PRN Reason: CONSULT Stop: 05/16/24 08:59 Potassium Chloride (Potassium Chloride 10% 20 Meq/15 Ml Udc) 40 meq GT X1 ONE Stop: 04/11/24 20:18 Last Admin: 04/11/24 21:39 Dose: 40 meq Documented By: LUCY Rocuronium [place] (Rocuronium Inj 10 Mg/Ml Vial 10 Ml) 90 mg IVP X1 ONE Stop: 04/10/24 09:47 Last Admin: 04/10/24 09:57 Dose: 90 mg Documented By: geri Co-signed By: DEANDRE Comments: RSI Sodium Bicarbonate (Sodium Bicarb Inj 8.4% Syr 50 Ml Syringe) 50 ml IV X1 ONE Stop: 04/06/24 09:01 Last Admin: 04/06/24 09:52 Dose: 50 ml Documented By: BEATRIZ Sodium Bicarbonate (Sodium Bicarb Inj 8.4% Syr 50 Ml Syringe) Confirm Administered Dose 100 ml IV .STK-MED ONE Stop: 04/16/24 01:23 Sodium Chloride (Sodium Chloride Rt 10% 15 Ml Nebu) 5 ml INH X1 ONE Stop: 04/06/24 00:08 Last Admin: 04/06/24 01:59 Dose: Not Given Documented By: NE Non-Admin Reason: Other, see note Comments: pt able to expectorate Sodium Chloride (Sodium Chloride Rt 10% 15 Ml Nebu) 5 ml INH X1 ONE Stop: 04/10/24 10:18 Last Admin: 04/11/24 06:48 Dose: Not Given Documented By: MR Non-Admin Reason: Discontinued Tuberculin PPD (Tuberculin Ppd Inj 5 Unit/0.1 Ml Dose) 5 unit ID X1 ONE Stop: 04/06/24 07:54 Last Admin: 04/06/24 12:43 Dose: 5 unit Documented By: BEATRIZ Tuberculin PPD (Tuberculin Ppd Inj 5 Unit/0.1 Ml Dose) 5 unit ID X1 ONE Stop: 04/14/24 12:19 Valproic Acid (Valproate Sod Inj 100 Mg/Ml Vial 5 Ml) 500 mg IV X1 ONE Stop: 04/07/24 17:58 Last Admin: 04/09/24 10:20 Dose: Not Given Documented By: ZP Non-Admin Reason: Discontinued Valproic Acid (Valproate Sod Inj 100 Mg/Ml Vial 5 Ml) 500 mg IV Q8HR [facility] Stop: 05/08/24 05:59 see [facility] Consultations Consultation(s) initiated? (list below): No Diagnosis Neuro Differential Diagnosis: subarachnoid hemorrhage, cerebrovascular accident and other (uti pneumonia, chf) Most likely diagnosis given after review of the tests above:: pneumonia Admission Indicated Admission indicated?: indicated Admission Request Was there a request for admission?: Yes Admission Attestation Admission request attestation: Discussed case Hospitalist service regarding admission. Discussed patients ED course, exam findings, labs, and radiology results. The Hospitalist agrees to accept the patient for admission. 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
--- NOTE | 2024-04-05 12:29 | XR_ITS ---
Examination: CT brain head without contrast. 2-D sagittal coronal reconstructions Date and time of exam:April 05, 2024 1348 hrs. Comparison January 07, 2020 Indications: Left-sided facial droop beginning yesterday weakness beginning 3 days ago CTDI: vol (mGy):56.3 DLP: (mGycm):1177 Technique: Multiple CT axial sections of the brain have been obtained, 5 mm slice thickness. Contrast has not been administered. 2-D sagittal, coronal reconstructions have been obtained Low dose protocols were performed. One or more of the following dose reduction techniques were used; automated exposure control, adjustment of the mA and/or KV according to patient size, use of iterative reconstruction technique. Findings: No significant ventricular enlargement. Intra-axial or extra-axial hemorrhage density is not seen. No mass effect or midline shift Basal cisterns are not remarkable. Fourth ventricle is midline. Cranial vault intact. Impression: Negative for acute hemorrhage, mass effect or midline shift As clinically warranted, consider brain MRI MRA without contrast, stroke protocol, follow-up
--- NOTE | 2024-04-05 12:29 | XR_ITS ---
Examination: AP chest single view Technique one AP portable semiupright chest single view Exam date and time: April 05, 2024 1236 hrs. Comparison September 04, 2023 Indications: Shortness of breath coughing beginning 4 days ago. Findings: Moderate CHF Moderate enlargement cardiac contour with prominent vascular congestion and perihilar edema Consider superimposed pneumonia at the lung bases Impression: Moderate CHF Consider superimposed pneumonia at the lung bases
--- NOTE | 2024-04-05 12:29 | EKG_ITS ---
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
[2024-04-05 13:11] LABS: Lactate (Lactic Acid) 0.8 mMol/L (0.4-2.0)
[2024-04-05 13:17] LABS: Basophils % (Auto) 0 % (0-2.5); Eosinophils # (Auto) 0.1 Thou/mm3 (0.0-0.5); Eosinophils % (Auto) 2 % (0-10); Hematocrit 29.2 % (36.0-46.0); Hemoglobin 9.1 g/dL (12.0-16.0); Immature Granulocytes % (Auto) 0 % (0-0); Immature Granulocytes Auto 0.01 Thou/mm3 (0.00-0.00); Lymphocytes # (Auto) 0.9 Thou/mm3 (1.0-4.8); Lymphocytes % (Auto) 20 % (10-50); Mean Corpuscular HGB Conc 31.2 g/dl (31.0-37.0); Mean Corpuscular Hemoglobin 28.4 pg (25.0-35.0); Mean Corpuscular Volume 91 fL (80-100); Monocytes # (Auto) 0.1 Thou/mm3 (0.0-0.8); Monocytes % (Auto) 3 % (0-12); Neutrophils # (Auto) 3.2 Thou/mm3 (1.8-7.7); Neutrophils % (Auto) 75 % (37-80); Nucleated Red Blood Cell % 0 /100 WBC (0); Platelet Count 269 Thou/mm3 (140-440); RDW Standard Deviation 54.4 fL (36.4-46.3); White Blood Count 4.3 Thou/mm3 (3.6-11.0)
[2024-04-05 13:18] LABS: Base Excess -11 (-3-3); HCO3 16 mEq/L (20-26); Inspired Oxygen, FIO2 21 %; PCO2 39 mmHg (32.0-48.0); pH, Arterial 7.23 (7.35-7.45)
[2024-04-05 13:19] LABS: Allen Test Performed/OK; O2 Saturation 86 % (91-98); Puncture Site Right Radial
[2024-04-05 13:22] LABS: PO2 54 mmHg (83-108)
[2024-04-05 13:37] LABS: Ammonia < 10 uMol/L (11-32)
[2024-04-05 13:39] LABS: Alanine Aminotransferase 17 U/L (10-49); Albumin, Serum 3.7 gm/dL (3.4-4.8); Albumin/Globulin Ratio 1.2 (1.2-2.2); Alkaline Phosphatase 91 U/L (46-116); Anion Gap 15 (7-16); Aspartate Amino Transferase 33 U/L (0-34); BUN/Creatinine Ratio 11 Ratio (12-20); Bilirubin,Total < 0.2 mg/dL (0.3-1.2); Blood Urea Nitrogen 59 mg/dL (9-23); Calcium 7.6 mg/dL (8.3-10.6); Calcium (Corrected) 7.8 mg/dL (8.5-10.1); Carbon Dioxide 15.6 mMol/L (20.0-31.0); Chloride 104 mMol/L (98-107); Creatinine (Component) 5.4 mg/dL (0.6-1.3); Estimated Creatinine Clearance 11.2 mL/min (>60); Globulin 3.2 gm/dL (2.3-3.5); Glucose 265 mg/dL (74-106); Osmolality,Calculated 295 (275-295); Potassium 4.4 mMol/L (3.4-5.1); Procalcitonin 0.89 ng/ml (0.0-0.49); Sodium 135 mMol/L (136-145); Total Protein 6.9 gm/dL (5.7-8.2); eGFR 8 See Note
[2024-04-05 13:40] LABS: Collection Type, Urine Catheter
[2024-04-05 13:40] LABS: INR 0.9 (0.9-1.3); Prothrombin Time 10.3 Seconds (9.0-12.2)
[2024-04-05 13:41] LABS: Troponin I 1.319 ng/mL (0.0-0.045)
[2024-04-05 14:04] LABS: B-Type Natriuretic Peptide 38 pg/mL (0-100)
[2024-04-05 14:11] LABS: Bacteria,Urine Rare; Bilirubin,Urine Negative (Negative); Blood,Urine Negative (Negative); Budding Yeast,Urine Present; Clarity,Urine Turbid (Clear/Hazy); Color,Urine Yellow (Lt Yel-Yel); Culture Indicated,Urine Not Indicated; Glucose, Urine 2+ (Negative); Ketones,Urine Negative (Negative); Leukocyte Esterase,Urine Negative (Negative); Nitrite,Urine Negative (Negative); Protein,Urine 3+ (Neg - Trace); RBC,Urine 9 /hpf (0-3); Specific Gravity,Urine 1.025 (1.001-1.035); Squamous Epithelial Cell,Urine 4 /hpf (0-5); Urobilinogen,Urine Negative mg/dL (0.0-1.0); WBC,Urine 8 /hpf (0-5)
--- NOTE | 2024-04-05 14:22 | XR_ITS ---
Examination: CT abdomen and pelvis without contrast. Coronal 3-D reconstructions. Sagittal 2-D reconstructions. Date and time of exam:April 05, 2024 1538 hours Comparison February 27, 2024 INDICATIONS: Abdominal pain and distention this week, history kidney stones CTDI: vol (mGy): 18.8 DLP: (mGycm): 1019 Technique: Axial images of the abdomen have been obtained, 3 mm slice thickness Intravenous contrast material has not been administered. Low dose protocols were performed. One or more of the following dose reduction techniques were used; automated exposure control, adjustment of the mA and/or KV according to patient size, use of iterative reconstruction technique. Findings: Bibasilar edema and/or pneumonia Fat-containing mass dome of the liver on the right again depicted Liver is irregular in contour and enlarged, 22 cm Gallbladder is contracted, the wall of the gallbladder appears mildly thickened Spleen is not enlarged No pancreatic or adrenal mass Moderate bilateral renal parenchymal scar formation Renal arterial calcifications 10 mm 14 mm lower pole left renal calculi No hydronephrosis or ureteral calculi No bowel obstruction No pericecal inflammatory change Atrophic anteverted uterus Contracted urinary bladder with urinary bladder wall thickening moderate osteopenia Impression: Significant hepatomegaly Recommend hepatobiliary sonography follow-up to exclude gallbladder wall thickening Moderate bilateral renal parenchymal scar formation 10 mm, 14 mm lower pole left renal calculi, no hydronephrosis or ureteral calculi No CT findings of appendicitis or bowel obstruction Cystitis pattern
--- NOTE | 2024-04-05 14:22 | XR_ITS ---
Examination: CT chest, without intravenous contrast. Sagittal and coronal 2-D reconstructions. Exam date and time: April 05, 2024 1536 hours INDICATIONS: Chest pain shortness of breath today CTDI:vol (mGy) 23.8 DLP: (mGycm) 791 Technique: Multiple 3.0 mm axial sections of the chest to been obtained. Bone and lung density settings are obtained. Sagittal and coronal 2-D reconstructions have been obtained. Low dose protocols were performed. One or more of the following dose reduction techniques were used; automated exposure control, adjustment of the mA and/or KV according to patient size, use of iterative reconstruction technique. Findings: Fluid surrounding the origin of the ascending thoracic aorta, axial image 43, measuring up to 12 mm in thickness Pulmonary artery segments are not enlarged Heavy calcification left main left anterior descending and left circumflex coronary arteries Mild to moderate enlargement cardiac contour Prominent vascular congestion Extensive bilateral lung opacity IMPRESSION: Fluid measuring up to 12 mm in thickness around the ascending thoracic aorta, clinical correlation advised Recommend CTA chest postintravenous contrast follow-up to confirm integrity of the ascending thoracic aorta and exclude intramural hematoma Moderate CHF Superimposed bilateral pneumonia
[2024-04-05] MEDS: SODIUM CHLORIDE 0.9% 1000 ML 1,000 ML 999 ML IV (14:53)
[2024-04-05 15:20] LABS: Troponin I 1.271 ng/mL (0.0-0.045)
--- NOTE | 2024-04-05 18:25 | PD.RESEVENT ---
Documentation for date of: 04/05/24 Event Note Event Note: Patient is a 64-year-old female, past medical history of recent stroke, kidney stones, brought into the emergency room due to complaints of altered mental status and shortness of breath, patient was hypoxic on arrival, complaining of chest pain. Abdominal imaging shows 10 to 14 mm stones in the lower pole the kidney, urinalysis negative for UTI, radiology did not report hydronephrosis. The patient was recently seen by Dr. Pinto scheduled for outpatient stone extraction procedure, pending cardiac clearance, noted to have acute kidney injury, there is concern for obstructive nephropathy, also noted extensive pneumonia, nonanion gap metabolic acidosis, sinus bradycardia on EKG as well as T inversions and Q waves in lateral leads, troponins are already downtrending. Of note patient CT imaging shows possible fluid collection around the aortic, possible aortic aneurysm, would require a CT angiogram, but due to ANA LAURA, contrast imaging can be considered once kidney function improves. Plan: ? Discussed the case with Dr. Gurrola, who recommended getting a urology consult prior to admission. ? Will sign out the patient to night team for evaluation. Assessment and plan discussed with my attending physician Dr. Galileo High (PGY-2)- Internal medicine resident
[2024-04-05] MEDS: AZITHROMYCIN 250 MG TABLET 500 MG PO (19:34)
--- NOTE | 2024-04-05 20:22 | PC.NURSE ---
HBS in room seeing pt, dtr at bedside.
[2024-04-05 21:48] LABS: Alanine Aminotransferase 16 U/L (10-49); Albumin, Serum 3.7 gm/dL (3.4-4.8); Albumin/Globulin Ratio 1.2 (1.2-2.2); Alkaline Phosphatase 92 U/L (46-116); Anion Gap 14 (7-16); Aspartate Amino Transferase 38 U/L (0-34); BUN/Creatinine Ratio 11 Ratio (12-20); Bilirubin,Total < 0.2 mg/dL (0.3-1.2); Blood Urea Nitrogen 61 mg/dL (9-23); Calcium 7.6 mg/dL (8.3-10.6); Calcium (Corrected) 7.8 mg/dL (8.5-10.1); Chloride 106 mMol/L (98-107); Creatinine (Component) 5.4 mg/dL (0.6-1.3); Estimated Creatinine Clearance 11.2 mL/min (>60); Globulin 3.1 gm/dL (2.3-3.5); Glucose 187 mg/dL (74-106); Osmolality,Calculated 294 (275-295); Potassium 4.3 mMol/L (3.4-5.1); Sodium 136 mMol/L (136-145); Total Protein 6.8 gm/dL (5.7-8.2); eGFR 8 See Note
--- NOTE | 2024-04-05 23:06 | PD.RESHP ---
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 She is [place]-speaking. Daughter at bedside stated she noticed slurred speech and difficulty finding sentences started around 4 PM on the day of admission. Last known normal was the night before. Additionally, she has left-sided droops which are also new. She had a stroke in 2018 with persistent left-sided deficits, difficulty ambulating, requiring walker or holding onto pompa or rails. Additionally, patient has been feeling sick over the last week reporting generalized weakness, decreased oral intake and complaining of generalized abdominal pain. She follows up with neurology, Dr. Pinto, and has been trying to get an appointment to follow-up on nephrolithiasis which she has a history of. She was seen by PCP several months ago who noted worsening renal function, with GFR 25% which apparently has been progressively improving. She uses oxygen at night. Presumably she was diagnosed with sleep apnea but did not tolerate CPAP. However, she was worsening shortness of breath over the last week associated with cough. Denies fever, chills, fall or trauma, headaches, visual changes, auditory changes, chest pain, palpitations, abnormal weight changes, N/V/D/C, dysuria, hematuria, urinary frequency or urgency. ED COURSE: Presented to as a stroke alert. On exam, alert and oriented x 3, ill-appearing, mild distress due to tachypneic, on 3 L NC, slurred speech, difficulty finding words. BP 129/67, HR 57, RR 18, satting 94% on 3 L. Hgb 9.1 (baseline 9?11), no leukocytosis. No coagulopathies. Sodium 135, CR 5.4 (baseline 1.6), GFR 8% (baseline 36), GLUCOSE 265, calcium 7.8. Troponin 1.319 then 1.271 on repeat, BNP 38. EKG showed sinus bradycardia, T wave inversions and Q waves in lateral leads. UA turbid, but does not suggest a UTI. CT head negative for acute pathology. CT abdominal pelvis showed significant hepatomegaly, moderate bilateral renal parenchymal scarring, 10 mm and 14 mm renal calculi on the left, cystitis pattern, no hydronephrosis or bowel obstruction. CXR mild CHF with superimposed pneumonia. CT chest showed superimposed bilateral pneumonia, periaortic fluid measuring 12 mm in thickness, recommended CTA rule out intramural hematoma. ED started 2.5 L fluid bolus, and CEFTRIAXONE X1. They attempted contacting urology for consult but were unsuccessful. PMHx: As above PSHx: Previous abdominal surgery and MEDS: Pending med rec ALLERGIES: NKA SH: Denies alcohol, tobacco or drug use. Exam Vital Signs Temp Pulse Resp BP Pulse Ox O2 Del Method O2 Flow Rate 98.2 F 57 L 18 129/67 94 L Nasal Cannula 3 04/05/24 19:52 04/05/24 19:52 04/05/24 19:52 04/05/24 19:52 04/05/24 19:52 04/05/24 19:52 04/05/24 19:52 Narrative Exam GENERAL Obese, in mild distress due to pain, tachypneic on 3 L nasal cannula satting HEENT NCAT.?KURT. Oral mucosa is moist. Patent Nares NECK Supple, nontender, no thyromegaly, no meningismus, no JVD, no step offs CHEST RRR, no m/g/r Bilateral coarse breath sounds, mild wheezing throughout. Atraumatic, nontender, no crepitus, symmetrical expansion. ABDOMEN Obese, soft and distended, mildly tender diffusely. No guarding/rebound tenderness/masses. Bowel sounds presents EXTREMITIES Nontender, no cyanosis, no edema Bilateral 1+ extremity edema SKIN Warm and dry, no jaundice/rashes. NEUROMUSCULAR Mild left-sided facial droop. Slurred speech. 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 Sensation intact and symmetrical throughout. Moves all 4 extremities well, with full ROM and good CSM. ROBERTO x4, remainder cranial nerves exams intact PSYCHIATRY Appears somnolent. No signs of hallucinations. Appropriate affect. Results: Labs 04/05/24 13:00 04/05/24 20:59 Labs: Short CBC 04/05/24 Range/Units 13:00 WBC 4.3 (3.6-11.0) Thou/mm3 Hgb 9.1 L (12.0-16.0) g/dL Hct 29.2 L (36.0-46.0) % Plt Count 269 D (140-440) Thou/mm3 BMP 04/05/24 04/05/24 13:06 20:59 Sodium 135 L 136 Potassium 4.4 4.3 Chloride 104 106 Carbon Dioxide 15.6 L 16.0 L BUN 59 H 61 H Creatinine 5.4 H* 5.4 H* Glucose 265 H 187 H D Calcium 7.6 L 7.6 L Cardiac Enzymes 04/05/24 04/05/24 Range/Units 13:06 14:54 Troponin I 1.319 H* 1.271 H* (0.0-0.045) ng/mL Liver Function 04/05/24 04/05/24 Range/Units 13:06 20:59 Total Bilirubin < 0.2 L < 0.2 L (0.3-1.2) mg/dL AST 33 38 H (0-34) U/L ALT 17 16 (10-49) U/L Alkaline Phosphatase 91 92 (46-116) U/L Albumin 3.7 3.7 (3.4-4.8) gm/dL Urine 04/05/24 Range/Units 13:17 Urine Color Yellow (Lt Yel-Yel) Urine Clarity Turbid A (Clear/Hazy) Urine pH 6.0 (5.0-7.0) Ur Specific Taberg 1.025 (1.001-1.035) Urine Protein 3+ A (Neg - Trace) Urine Glucose (UA) 2+ A (Negative) ABG Interpretation ABG results: 04/05/24 13:11 ABG pH 7.23 L ABG pCO2 39 ABG pO2 54 L* ABG HCO3 16 L ABG O2 Saturation 86 L ABG Base Excess -11 L Quality Measures Quality Measures VTE prophylaxis Advance care planning discussed with:: patient and child Medications Home Medications and Allergies Home Medications ?Medication ?Instructions ?Recorded ?Confirmed ?Type omeprazole 20 mg capsule,delayed 20 mg PO QDAY GERD ##0 06/06/15 03/20/24 History release (Prilosec) insulin glargine 100 unit/mL (3 10 unit subcut QDAY 01/07/20 03/20/24 History mL) subcutaneous pen (Basaglar KwikPen U-100 Insulin) insulin lispro 100 unit/mL 24 unit subcut TID 01/07/20 03/20/24 History subcutaneous pen (Admelog SoloStar U-100 Insulin lispro) acetaminophen 325 mg capsule 650 mg PO TID PRN Pain 12/26/21 03/20/24 History benazepril 40 mg tablet 40 mg PO BID 12/26/21 03/20/24 History ergocalciferol (vitamin D2) 1,250 1,250 mcg PO QWEEK 12/26/21 03/20/24 History mcg (50,000 unit) capsule linaclotide 72 mcg capsule 72 mcg PO QDAY 12/26/21 03/20/24 History (Linzess) metformin 1,000 mg tablet 1,000 mg PO BID 12/26/21 03/20/24 History rosuvastatin 40 mg tablet 40 mg PO QDAY 12/26/21 03/20/24 History Allergies Allergy/AdvReac Type Severity Reaction Status Date / Time No Known Allergies Allergy Verified 03/20/24 15:08 Visit Medications Discontinued Medications Azithromycin (Azithromycin 250 Mg Tablet) 500 mg PO X1 ONE Stop: 04/05/24 17:41 Last Admin: 04/05/24 19:34 Dose: 500 mg Sodium Chloride (Ns) 1,000 mls @ 999 mls/hr IV .Q1H1M ONE Stop: 04/05/24 15:19 Last Infusion: 04/05/24 19:30 Dose: Infused Ceftriaxone Sodium 1,000 mg/ (Sodium Chloride) 50 mls @ 100 mls/hr IV X1 ONE Stop: 04/05/24 14:55 Last Infusion: 04/05/24 16:10 Dose: Infused Sodium Chloride (Ns) 1,000 mls @ 999 mls/hr IV .Q1H1M ONE Stop: 04/05/24 18:37 Last Admin: 04/05/24 19:34 Dose: Not Given Assessment & Plan Plan In summary: 64-year-old female with PMHx of CVA 2018, residual left-sided deficit, nephrolithiasis, HTN, HLD, chronic anemia and T2DM presenting with strokelike symptoms. Admitted for stroke r/o, ANA LAURA possibly related to dehydration or obstructive uropathy, and pneumonia. Mutliple Attempts to reach urology unsuccessful. Will try to get a hold of urology in the AM. ED touch base with nephrology, Dr. Sheridan, no indication for immediate HD but will see patient tomorrow in AM. Appreciate recommendation from nephrology and neurology. Acute encephalopathy Stroke rule out Hx of CVA 2019 Presenting with acute slurred speech and difficulty finding sentences that started around 4 PM. Last known normal the night previous admission. On exam: Left-sided weakness, facial droop, and slurred speech. Had a stroke in 2018 with residual left-sided weakness, currently needs assistance with ambulation, uses walker or siderails. Head CT was negative. Per teleneuro evaluation, most likely she has metabolic encephalopathy over CVA. Recommended MRI brain without contrast, carotid duplex, ASPIRIN therapy, no antiplatelets. Currently unable to do contrast study due to ANA LAURA. ? Treating metabolic disorder as below. ? Seizure precaution ? Head elevation >30 degrees ? Permissive hypertension ? Continue LABETALOL 10 mg for BP >220/110 ? Continue TYLENOL for fever ? Continue ASPIRIN 81 mg daily ? Continue ATORVASTATIN 80 mg ? Pending bedside swallow eval ? Pending speech evaluation ? Pending physical therapy evaluation ? Pending lipid panel, TSH, A1c, echocardiogram ? Pending in-house neurology recommendations ? Pending MRI in a.m. ? Pending carotid duplex ? Consider Holter monitor outpatient (per teleneuro) ANA ALURA on possible CKD stage IIIb Acute nephrolithiasis Hx of renal calculi DDx: Prerenal 2/2 congestion, possible postrenal 2/2 obstructive uropathy. CR 5.4 (baseline 1.6), GFR 8% (baseline 36). Reports poor oral intake over the last week in the setting of illness. Has 10 mm and 14 mm left renal calculi on CT, however no reported obstructive uropathy or hydronephrosis. Normal CT suggest cystitis, less likely she has UTI, asymptomatic, afebrile, no leukocytosis, UA does not suggest this. Unlikely she is a candidate for transfer given no obstructive uropathy, history of recurrent/chronic nephrolithiasis. She follows up with Dr. Pinto and has has been unable to make an appointment with his office. ED attempted to reach urology for recommendations, however were unsuccessful. Received 1.0 L bolus in ED, repeat CMP showed no improvement in CR. Will likely benefit from diuresis. No indication for immediate HD from nephrology perspective, will see in AM. ? Given LASIX 40 mg X1 ? Renally dose meds, avoid overdiuresis and NEPHROTOXINS ? Daily CMP ? Nephrology and urology consulted, pending recommendations ? Pending urine culture ? Will attemp to reach urology in AM Acute hypoxemic respiratory failure Community-acquired pneumonia GEMMA/OHS on oxygen HS Reports 1 week of cough associated with worsening shortness of breath over the last few days. Radiography suggested pneumonia. Previously had sleep study, prescribed CPAP but did not tolerate, continued on nasal cannula at night. Tachypneic and has rhonchi and wheezing on exam. Afebrile, no leukocytosis. ? Continue CEFTRIAXONE (2/2 to present) ? Continue AZITHROMYCIN (2/2 to present) ? Continue DuoNebs q.6h. scheduled ? Oxygen PRN ? Pending blood and sputum cultures ? BiPAP/CPAP while sleeping NSTEMI type II (improving) Likely demand ischemia in settings of dehydration. EKG showed sinus bradycardia, T wave inversions and Q waves in lateral leads. Troponin 1.319 then 1.271 on repeat. Asymptomatic without chest pain or palpitations ? Treating underlying HTN, HLD Currently BP 120/67, HR 57. ? Allowing permissive hypertensive as above. ? Continue LABETALOL and ATORVASTATIN as above. ? Consider restarting antihypertensives as indicated. ? Pending lipid panel IDDM No recent A1c on file. Admission GLUCOSE 265. ? Continue home glargine 10 units HS ? Continue sliding scale ? [facility] Diet: NPO pending speech eval DVT prophylaxis: SCD GI prophylaxis: PROTONIX Antibiotics: CTX, AZITHROMYCIN Disposition: Stroke work-up, ANA LAURA, urology recs, PNA Patient case was discussed with attending, Holly Silva MD. Ronnie Dior DO PGYI Attending Provider Attestation/Addendum I attest that I was physically present for the evaluation, physical examination, lab and imaging review of the patient with the residents. I discussed the case with the residents and agree with the findings and plans of care as documented above. Patient is a 64 years old female with past medical history of CVA, nephrolithiasis, hypertension, hyperlipidemia, anemia, diabetes who presented to the ED with complaint of altered mentation, slurred speech and facial droop. As per the daughter at bedside, patient started having slurring of speech, facial droop and weakness 2 days ago. She was also noted to be confused and was not making sense while conversing with the family. The daughter is stated that the symptoms are new for the patient. Patient does use walker at home to ambulate. Over the last week, patient has been feeling unwell and has decreased oral intake. She was also having worsening shortness of breath and cough. Patient was also trying to get appointment with urology for her nephrolithiasis. She was told that she had worsening kidney function but her last lab work showed significant improvement. Patient was found to have sleep apnea but did not tolerate the CPAP mask and was started on oxygen at night. In the ED, patient is alert and oriented, was able to answer questions and follow commands, saturating well on 3 L nasal cannula. As per the daughter, her speech is still slurred. She was also noted to have mild left facial droop. Heart rate is 57, rest of the vitals are within normal limits. She was noted to have creatinine of 5.4 and BUN of 61, significant elevation compared to her baseline. She also has glucose of 265. Troponin was noted to be elevated at 1.319 but down trended afterwards. CT head was done, which was negative for acute hemorrhage, midline shift or mass effect. Teleneurology was consulted, suggested acute encephalopathy possibly from ongoing infection. Recommended carotid duplex, MRI brain to rule out stroke. Also recommended against antithrombotics as she is out of window. We will start patient on atorvastatin 80, continue Hoare home aspirin. We will obtain speech therapy, physical therapy, lipid panel, TSH, A1c, echocardiogram. We will continue with frequent neurochecks. Patient was also noted to have 10 mm and 14 mm left renal calculi on CT abdomen, however did not show any hydronephrosis or obstructive uropathy. Nephrology was consulted by the ED, attempt was made to contact with Dr. Pinto who is patient's urologist. We will attempt to reach out to as well. Patient received 1 L fluid bolus in the ED. Noted to have mild edema on examination, vascular congestion on chest x-ray. We will start one-time dose of Lasix 40 mg IV and closely monitor kidney function. We will start patient on Rocephin, azithromycin, supplemental oxygen, DuoNebs for acute hypoxic respiratory failure likely secondary to community-acquired pneumonia. We will also continue with supplemental oxygen, DuoNebs. We will obtain blood and sputum cultures as well. Will start her on Lantus along with sliding scale for diabetes. We will hold her antihypertensives and resume if her blood pressure worsens. We will also start her on BiPAP/CPAP for her GEMMA/OHS. Derik Silva MD
[2024-04-05] MEDS: FUROSEMIDE INJ 10 MG/ML 4ML VIAL 40 MG IVP (23:45)
--- NOTE | 2024-04-05 23:54 | ECHO_ITS ---
Transthoracic Echo Report Ht (in): 60 Wt (lb): 226 Exam Location: Echo Lab Status: Inpatient Director Trade: TeoKimberlyn bautista Indications: Procedure Performed: BP: 161 / 88 HR: 84 Technical Quality: Technically difficult study MEASUREMENTS (Male / Female) Normal Values 2D ECHO LA Volume Index 21.5 cm?/m? 16 - 28 cm?/m? M-MODE Aortic Root Diameter MM 2.3 cm LA Systolic Diameter MM 4.4 cm LA Ao Ratio MM 1.9 AV Cusp Separation MM 1.8 cm DOPPLER AV Peak Velocity 207.0 cm/s AV Peak Gradient 17.1 mmHg AV Mean Gradient 8.0 mmHg AV Velocity Time Integral 38.1 cm LVOT Peak Velocity 154.0 cm/s LVOT Peak Gradient 9.5 mmHg LVOT Velocity Time Integral 24.2 cm MV Area PHT 3.8 cm? Mitral E Point Velocity 108.0 cm/s Mitral A Point Velocity 72.3 cm/s Mitral E to A Ratio 1.5 PV Peak Velocity 143.5 cm/s PV Peak Gradient 8.2 mmHg FINDINGS Left Ventricle Normal left ventricular size, wall thickness, systolic function with no obvious regional wall motion abnormalities. Normal left ventricular diastolic filling pattern for age. The ejection fraction is visually estimated at 55-60 %. Right Ventricle The right ventricle is normal in size and systolic function. Left Atrium The left atrium is normal by two-dimensional, color flow and Doppler imaging with no structural abnormalities, no thrombus formation present. Right Atrium The right atrium is normal by two-dimensional imaging, color flow and Doppler imaging with no structural abnormalities, no thrombus formation present. Atrial Septum The interatrial septum appears normal with no evidence of a shunt. Aorta The aorta is normal by two-dimensional, color flow and Doppler interrogation. Mitral Valve The mitral valve is normal by two-dimensional, color flow and Doppler interrogation. There is trace mitral valve regurgitation, stenosis or prolapse. Aortic Valve The aortic valve is trileaflet and normal by two-dimensional, color flow and Doppler interrogation. There is no significant aortic valve regurgitation. Tricuspid Valve The tricuspid valve is normal by two-dimensional, color flow and Doppler interrogation. There is no significant tricuspid valve regurgitation. Pulmonic Valve The pulmonic valve is not well visualized. There is no significant pulmonic valve regurgitation. Vessels The pulmonary artery appears normal. The inferior vena cava pulmonary and hepatic veins appear normal. Pericardium The pericardium is normal by two-dimensional imaging. There is no significant pericardial effusion. CONCLUSIONS Indication: CHF, Stroke r/o bubble study Negative bubble study Normal LV size and wall thickness. Estimated EF 55-60 %. RV is normal in size and systolic function. Trace MR. Catherine Alaniz (Electronically Signed) Final Date: 07 April 2024 08:46
[2024-04-06] VITALS (35 sets, daily range): BP systolic 95–192; BP diastolic 39–122; PULSE 49–101; RESP 12–28; TEMP 36–38.3; O2SAT 90–99
--- NOTE | 2024-04-06 00:12 | PD.EDADDENDU ---
Emergency Room Addendum Addendum Narrative: 0010: Patient assessed by teleneuro. Per nurse at bedside, teleneuro recommendations include MRI in the morning. 0012: Case d/w hospitalist resident and was made aware of teleneuro's recommendations pending official consultation note. MD Attestation MD Attestation Scribe Attestation: I, Clarence Peñaloza, am scribing for and in the presence of Dr. Roche. Provider Notation: Although this document has been carefully reviewed, there may still be some phonetic and other typographical errors. These errors are purely grammatical due to imperfections in the software program and should not be construed in any way to compromise the substance of the patient's medical care during this visit.
--- NOTE | 2024-04-06 00:12 | PC.NURSE ---
Tele nurologist Dr. Chu Alva interview and assessed pt. Dtr at bedside.
[2024-04-06] MEDS: ALBUTEROL/IPRATROPIUM (Duoneb) RT SOL 3 ML NEBU INH ×4 (01:55→18:35)
--- NOTE | 2024-04-06 02:47 | ESCONSULT_ITS ---
Tele Neuro Consultation Consultation Date 04/06/24 Most Recent Vital Signs Last Vital Signs Temp 99.1 F 04/06/24 01:10 Pulse 68 04/06/24 01:55 Resp 28 H 04/06/24 01:55 BP 144/64 H 04/06/24 01:10 Pulse Ox 92 L 04/06/24 01:55 O2 Del Method Nasal Cannula 04/06/24 01:10 O2 Flow Rate 4 04/06/24 01:55 Laboratory-Coagulation Panel PT 10.3 Seconds (9.0-12.2) 04/05/24 13:00 INR 0.9 (0.9-1.3) 04/05/24 13:00 Consultation Narrative [facility] TeleNeurology Consult Services Stat Consult Patient Name: MANSI GALVIN Date of : 1960 Identification Number: Date of Service: 04/05/2024 23:59:49 Diagnosis: ? G93.41 - Encephalopathy Metabolic ? I63.89 - Cerebrovascular accident (CVA) due to other mechanism ([facility]) Impression Toxic/metabolic encephalopathy due to bilateral pneumonia Left facial droop Hold antiplatelet therapy at this time reportedly she has a history of anemia requiring blood transfusions Okay to begin aspirin when cleared by the medicine team MRI of the brain without contrast Carotid Duplex Patient is not an IV thrombolytic candidate she is out of the time window for treatment and in addition her symptoms are very mild and nondisabling and only a left facial droop Recommendations: Our recommendations are outlined below. Diagnostic Studies : MRI head without contrast CTA head and neck with contrast Holter/Loop Recorder as outpatient with cardiology follow up Carotid Duplex Laboratory Studies : Lipid panel I ordered Hemoglobin A1c TSH Antithrombotic Medication : Hold antithrombotics for now. Permissive hypertension, Antihypertensives with prn for first 24-48 hrs post stroke onset. If BP greater than 220/120 give Labetalol IV or Vasotec IV Statins for LDL goal less than 70 Anticoagulant Medication : Not indicated Nursing Recommendations : IV Fluids, avoid dextrose containing fluids, Maintain euglycemia Neuro checks q4 hrs x 24 hrs and then per shift Head of bed 30 degrees Continue with Telemetry Consultations : Recommend Speech therapy if failed dysphagia screen Physical therapy/Occupational therapy DVT Prophylaxis : SCDs, Pneumatic Compression Disposition : Neurology will follow -- Advanced Imaging: Advanced Imaging Deferred because: Stroke not suspected with clinical presentation and exam Metrics: Dispatch Time: 04/05/2024 23:59:49 Callback Response Time: 04/06/2024 00:00:18 ED Physician not notified of diagnostic impression and management plan because Nurse CT HEAD: As Per Radiologist CT Head Showed No Acute Hemorrhage or Acute Core Infarct Reviewed Chief Complaint: Confusion History of Present Illness: Patient is a 64 year old Female. STAT consult confirmed by ED MD CEBALLOS 64F Slurred speech, left sided droop, word finding difficulties starting 1600 04/04 LKW: 04/07 at [place] Hx: stroke (left deficits; holds rail to walk) CT head: negative Would like eval and recs. Patient has a history of a prior stroke in 2018 with residual left-sided hemiparesis She presented to the emergency department with reported confusion and slurred speech Patient's daughter states that she thinks the symptoms might have started at 4:00 this afternoon she is really not fully sure On arrival to the emergency department she appears to have a left-sided facial droop which is also new From her prior stroke this was not present From a prior stroke she does require the use of a walker Portable chest x-ray did reveal CHF with a superimposed pneumonia CT of the chest then did show the superimposed bilateral pneumonia She is already been started on antibiotics Past Medical History: ? Hypertension ? Diabetes Mellitus ? Hyperlipidemia ? Stroke Other PMH: Anemia that requires transfusions unable to obtain due to: Patient Is Confused Medications: No Anticoagulant use No Antiplatelet use Reviewed EMR for current medications Allergies: Allergies Unable To Obtain Due To: Patient Is Confused Social History: Unable To Obtain Due To Patient Status : Patient Is Confused Family History: Family History Cannot Be Obtained Because:Patient Is Confused ROS : ROS Cannot Be Obtained Because: Patient Is Confused Past Surgical History: Past Surgical History Cannot Be Obtained Because: Patient Is Confused There Is No Surgical History Contributory To Today?s Visit Examination: BP(104/61), Pulse(57), Blood Glucose(282) Neuro Exam: General: Alert,Awake, Oriented, Place, Person Patient is not oriented to time or place Speech: Fluent: Language: Intact: Face: Symmetric: Facial Sensation: Intact: Visual Luis: Intact: Extraocular Movements: Intact: Motor Exam: No Drift: Sensation: Intact: Coordination: Intact: This consult was conducted in real time using interactive audio and video technology. Patient was informed of the technology being used for this visit and agreed to proceed. Patient located in hospital and provider located at home/office setting. Patient is being evaluated for possible acute neurologic impairment and high probability of imminent or life - threatening deterioration.I spent total of 35 minutes providing care to this patient, including time for face to face visit via telemedicine, review of medical records, imaging studies and discussion of findings with providers, the patient and / or family. Dr Chu [facility] For Inpatient follow-up with [facility] physician please call [facility] at . As we are not an outpatient service for any post hospital discharge needs please contact the hospital for assistance. If you have any questions for the [facility] physicians or need to reconsult for clinical or diagnostic changes please contact us via [facility] at [phone].
--- NOTE | 2024-04-06 03:28 | XR_ITS ---
Examination: Carotid arterial duplex scan, ultrasound. Date and time of exam: April 06, 2024 1542 hours INDICATIONS: Slurred speech stroke alert today Technique: Multiple sonographic images have been obtained of the carotid arteries and vertebral arteries, B-mode/grayscale imaging and Doppler spectral analysis and color flow Peak systolic and diastolic velocities have been recorded. Systolic diastolic ratios have been calculated. Findings: Right peak systolic velocities: Patient motion limits assessment right internal carotid artery Vertebral artery flow is antegrade. Left peak systolic velocities: Distal internal carotid artery peak systolic velocity is 0.8 M/sec Proximal internal carotid artery peak systolic velocity is 0.9 M/sec Carotid bifurcation peak systolic velocity is 1.1 M/sec External carotid artery peak systolic velocity is 2.6 M/sec Vertebral artery flow is antegrade Impression: No diagnostic visualization of the right carotid system secondary to lack of patient cooperation 0-10% stenosis left internal carotid artery.
--- NOTE | 2024-04-06 04:30 | PC.NURSE ---
Unable to perform NIH stroke scale, pt confused and unable to follow or perform any instructions. Dr. Ashley informed, will be down to ed to see pt.
--- NOTE | 2024-04-06 04:45 | PC.NURSE ---
Hospitalist at bedside seeing pt.
[2024-04-06 05:25] LABS: Base Excess, Venous -13 (-3-3); O2 Saturation, Venous 64 % (96-97); PCO2, Venous 34 mmHg (36-56); PO2, Venous 35 mmHg (15-58); pH, Venous 7.23 (7.33-7.66)
[2024-04-06 05:26] LABS: Lactate (Lactic Acid) 0.8 mMol/L (0.4-2.0)
[2024-04-06 05:54] LABS: Basophils % (Auto) 0 % (0-2.5); Eosinophils # (Auto) 0.1 Thou/mm3 (0.0-0.5); Eosinophils % (Auto) 1 % (0-10); Hematocrit 29.8 % (36.0-46.0); Hemoglobin 9.1 g/dL (12.0-16.0); Immature Granulocytes % (Auto) 0 % (0-0); Immature Granulocytes Auto 0.01 Thou/mm3 (0.00-0.00); Lymphocytes # (Auto) 0.9 Thou/mm3 (1.0-4.8); Lymphocytes % (Auto) 15 % (10-50); Mean Corpuscular HGB Conc 30.5 g/dl (31.0-37.0); Mean Corpuscular Hemoglobin 27.9 pg (25.0-35.0); Mean Corpuscular Volume 91 fL (80-100); Monocytes # (Auto) 0.1 Thou/mm3 (0.0-0.8); Monocytes % (Auto) 2 % (0-12); Neutrophils # (Auto) 4.7 Thou/mm3 (1.8-7.7); Neutrophils % (Auto) 81 % (37-80); Nucleated Red Blood Cell % 0 /100 WBC (0); Platelet Count 257 Thou/mm3 (140-440); RDW Standard Deviation 53.2 fL (36.4-46.3); Red Blood Count 3.26 Miln/mm3 (4.00-5.20); White Blood Count 5.7 Thou/mm3 (3.6-11.0)
[2024-04-06 06:05] LABS: Beta Hydroxybutyrate 0.7 mmol/L (<0.6)
[2024-04-06 06:31] LABS: Ammonia < 10 uMol/L (11-32)
[2024-04-06 06:33] LABS: Glucose Estimated Average 171 mg/dL (80-131); Hemoglobin A1C 7.6 % Hgb (4.8-6.0)
[2024-04-06 06:35] LABS: Alanine Aminotransferase 14 U/L (10-49); Albumin, Serum 3.7 gm/dL (3.4-4.8); Albumin/Globulin Ratio 1.1 (1.2-2.2); Alkaline Phosphatase 100 U/L (46-116); Anion Gap 14 (7-16); Aspartate Amino Transferase 36 U/L (0-34); BUN/Creatinine Ratio 11 Ratio (12-20); Bilirubin,Total < 0.2 mg/dL (0.3-1.2); Blood Urea Nitrogen 66 mg/dL (9-23); Calcium 7.5 mg/dL (8.3-10.6); Calcium (Corrected) 7.7 mg/dL (8.5-10.1); Carbon Dioxide 15.1 mMol/L (20.0-31.0); Cardiac Risk Estimate 6.4 RATIO (3.7-5.6); Chloride 104 mMol/L (98-107); Cholesterol 191 mg/dL (132-200); Creatinine (Component) 5.9 mg/dL (0.6-1.3); Estimated Creatinine Clearance 10.5 mL/min (>60); Free T4 (Free Thyroxine) 1.03 ng/dL (0.89-1.76); Globulin 3.3 gm/dL (2.3-3.5); Glucose 238 mg/dL (74-106); HDL Cholesterol 30 mg/dL (40-60); Osmolality,Calculated 293 (275-295); Potassium 4.8 mMol/L (3.4-5.1); Sodium 133 mMol/L (136-145); Triglycerides 493 mg/dL (30-150); eGFR 7 See Note
[2024-04-06 06:37] LABS: Phosphorous 9.5 mg/dL (2.4-5.1)
--- NOTE | 2024-04-06 07:53 | XR_ITS ---
Ultrasound-guided needle placement right internal jugular vein Permanent tunneled dialysis catheter insertion, percutaneous Fluoroscopy AP chest, portable, single view. Date and time of procedure: April 06, 2024 1029 hours INDICATIONS: Renal failure this week, need for stat and long-term dialysis Informed consent provided Technique: A timeout was completed verifying correct patient, procedure, site, positioning, and special equipment if applicable. The patient was placed in a dependent position appropriate for dialysis catheter placement based on the vein to be cannulated. The patient'sright neck was prepped and draped in sterile fashion. Maximum Sterile Barrier Technique used including cap, mask, sterile gown, sterile gloves, and sterile full body drape. If ultrasound technique used: sterile gel and sterile probe covers. Hand Hygiene performed using proper scrub, soap and water, or alcohol-based hand rub. 1% lidocaine was used to anesthetize the surrounding skin area The [employer] portable ultrasound apparatus utilized to confirm patency of the right internal jugular vein Utilizing ultrasonographic guidance successful 21-gauge needle puncture into the right internal blood or vein Ultrasound images were recorded and stored. Vessel micropuncture was performed with 21-gauge needle. 0.18 wire guide is introduced into the vein. 0.18 wire is introduced into the vena cava under fluoroscopy. Subcutaneous tunnel formed in the upper chest. Permanent tunneled dialysis catheter placed in the subcutaneous tunnel. Dilators were introduced over the J-wire guide. Tunneled dialysis catheter is introduced through a dilator with venous sheath into the superior vena cava under fluoroscopic guidance. The catheter is sutured in place to the skin and a sterile dressing applied. Perfusion to the extremity distal to the point of catheter insertion is checked and found to be adequate Attending radiologist was present for the entire procedure Estimated blood loss2 cc. The patient tolerated the procedure well and there were no complications Impression: Successful ultrasound-guided needle placement right internal jugular vein Successful permanent tunneled dialysis catheter insertion, percutaneous Fluoroscopy 0.6 minutes radiation dose 13.47 milligray 1 spot fluoroscopic chest film. AP chest performed at completion procedure demonstrates satisfactory position dialysis catheter. May use dialysis catheter.
[2024-04-06] MEDS: PANTOPRAZOLE INJ 40 MG VIAL IVP (09:01)
[2024-04-06] MEDS: cefTRIAXone/D5w 1gm IV premix 50 ML IV (09:01)
[2024-04-06 09:05] LABS: Hepatitis A Antibody IgM Non Reactive (Non React); Hepatitis B Core Antibody IgM Non Reactive (Non React); Hepatitis B Surface Antigen Non Reactive (Non React); Hepatitis C Antibody Non Reactive (Non React)
--- NOTE | 2024-04-06 09:31 | PC.SS ---
Patient Sofiya Pacheco is a 64 Year old female admitted for ANA LAURA, Stroke R/O. SS met with patient at bedside. Patients family at bedside. Patient's daughter, Hali was on the phone during encounter. She reports that patient's daughter, Uzma Vogt is her surrogate decision maker [phone]. Patient lives at home with her daughters. Patient utilizes a walker to assist with ambulation. Pharmacy of choice is [facility] in [place]. patient does utilize home 02 at 2L-3L. Patient is able to complete ADL's independently. Patients PCP is Evon Paul. at time of discharge patient will return home. Family will provide transportation. Discharge plan: Home Next of Kin: daughter, Uzma Vogt [phone]
[2024-04-06] MEDS: Sodium Bicarb Inj 8.4% SYR 50 ML SYRINGE IV (09:52)
--- NOTE | 2024-04-06 10:27 | PCS.ST ---
NPO for procedure. Swallow Evaluation as needed when cleared for PO
[2024-04-06] MEDS: HEPARIN SOD LOCK SYR 100 UNIT/ML 500 UNIT INTRACATH (11:00)
[2024-04-06] MEDS: HEPARIN SOD INJ 5000 UNIT/ML VIAL 10 ML 3300 UNIT INTRACATH (11:35)
--- NOTE | 2024-04-06 11:42 | PC.PT ---
Per RN, patient is getting a dialysis catheter placed at ~10:15 and has another procedure scheduled for later in the day. RN requesting for PT to hold evaluation today to let the patient rest. Will hold today and re-attempt PT eval tomorrow 04/07/24.
[2024-04-06] MEDS: INSULIN GLARGINE (Lantus) 5 UNIT/0.05 ML (PER 5 UNITS) 6 UNIT SC (12:31)
[2024-04-06] MEDS: ASPIRIN 300 MG SUPP PR (12:43)
[2024-04-06] MEDS: TUBERCULIN PPD INJ 5 UNIT/0.1 ML DOSE ID (12:43)
[2024-04-06 13:43] LABS: Base Excess -13 (-3-3); HCO3 13 mEq/L (20-26); Inspired Oxygen, FIO2 30 %; O2 Saturation 92 % (91-98); PCO2 31 mmHg (32.0-48.0); PO2 70 mmHg (83-108); pH, Arterial 7.23 (7.35-7.45)
[2024-04-06 13:48] LABS: Allen Test Not Performed; Puncture Site Right Radial
--- NOTE | 2024-04-06 14:01 | PD.RESCONSUL ---
HPI Data of Consult Consult date: 04/06/24 Requesting Physician: Everton Lopez MD Admitting Provider: Derik Silva MD Attending Provider: Everton Lopez MD Primary Care Provider: SUNNY Whitney Consult Narrative Reason for consult: ANA LAURA on CKD IIIA History of present illness: The patient is a 64-year-old female with significant past medical history of 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 Stroke alert was called, and underwent stroke workup. tPA not given due to out of window. On further interviewing, she reported that she has been taking some penicillin that was brought from [place] of long time ago. She also took Motrin x 2 in last 2 days. She admitted having fever, denied any chills, lightheadedness, chest pain, and any flank pain. Her vitals are fairly stable, hemoglobin 9.1, ABG significant for pH 7.23, pCO2 39, pO2 70. Chemistry panel revealed sodium 133, mild hyperkalemia, bicarb 15.1. BUN 66, creatinine 5.9, EGFR 7. Baseline creatinine is 1.6 with EGFR 56. Triglyceride 493, cholesterol 191, HDL 30 with normal TSH and T4. Hepatitis panel negative. CT head negative for midline shift, acute hemorrhage or mass effect. Pending carotid US, and brain MRI. CXR with mild congestion and superimposed pneumonia. CT abdomen pelvis revealed significant hepatomegaly, moderate bilateral renal parenchymal scarring, 10 mm and 14 mm renal calculi on the left, cystitis pattern, no hydronephrosis or bowel obstruction. PMH: As mentioned above Social history: Denies alcohol, smoking or any illicit drug use Allergies: No known allergies Medications: To be reconciled Nephrology consultation was done for further management of ANA LAURA in CKD stage IIIa. cc:: cc: Everton Lopez MD Review of Systems Review of Systems ROS Unobtainable: unobtainable due to medical condition Narrative Review of Systems: on bipap Past Medical History Past Medical History NEUROLOGIC: Positive Neurological Disorders, Cerebrovascular Accident and Transient Ischemic Attacks (TIA); Negative Seizures CARDIAC: Positive Cardiac Disorders, Myocardial Infarction, Angina, Hypercholesterolemia and Hypertension; Negative Congestive Heart Failure RESPIRATORY: Positive Respiratory Disorders, Asthma and Sleep Apnea; Negative Chronic Obstructive Pulmonary Disease (COPD) GASTROINTESTINAL: Positive Gastrointestinal Disorders, Gastroesophageal Reflux Disease and Obesity GENITOURINARY: Positive Genitourinary Disorders and Kidney Stones; Negative Renal Disease REPRODUCTIVE: Positive Previous Pregnancies MUSCULOSKELETAL: Positive Musculoskeletal Disorders and Arthritis ENDOCRINE: Positive Endocrine Disorders and Diabetes Mellitus Type 2; Negative Diabetes Mellitus Type 1 HEMATOLOGIC: Positive Anemia; Negative Blood Disorders or Sickle Cell Disease OTHER HISTORY: Positive Hospitalization; Negative Blood Transfusions, Anesthesia Reactions or Cancer Family History FAMILY HISTORY: Negative Family Cardiac Disorders Surgical History SURGICAL: Positive Abdominal Surgery and Section Social History SMOKING STATUS: Never smoker Exam Vital Signs Temp Pulse Resp BP Pulse Ox O2 Del Method O2 Flow Rate 98.7 F 80 19 124/99 H 92 L Blow-by 3 04/06/24 12:00 04/06/24 13:53 04/06/24 13:53 04/06/24 12:00 04/06/24 13:53 04/06/24 12:00 04/06/24 04:00 FiO2 30 04/06/24 13:53 Narrative Exam General: No acute distress, Alert and Oriented x 3 HEENT: Moist mucous membranes, oropharynx clear Neck: Supple, No masses, No JVD CVS: S1S2 Regular rate and rhythm, No murmurs, rubs or gallops Lungs: Clear to auscultation with no accessory use, no wheeze no rhonchi Abd: Soft, NT/ND, +BS, no organomegaly Ext: 1-2+ bilateral lower limb edema, warm and well perfused, peripheral arteries barely palpable Skin: No rash Neuromuscular: Left upper and lower extremity decreased strength and sensation Psych: Appropriate mood and affect Results Labs 04/07/24 05:05 04/07/24 12:15 Labs: Short CBC 04/06/24 Range/Units 05:17 WBC 5.7 (3.6-11.0) Thou/mm3 Hgb 9.1 L (12.0-16.0) g/dL Hct 29.8 L (36.0-46.0) % Plt Count 257 (140-440) Thou/mm3 BMP 04/05/24 04/06/24 20:59 05:17 Sodium 136 133 L Potassium 4.3 4.8 D Chloride 106 104 Carbon Dioxide 16.0 L 15.1 L BUN 61 H 66 H Creatinine 5.4 H* 5.9 H* D Glucose 187 H D 238 H D Calcium 7.6 L 7.5 L Cardiac Enzymes 04/05/24 Range/Units 14:54 Troponin I 1.271 H* (0.0-0.045) ng/mL Liver Function 04/05/24 04/06/24 Range/Units 20:59 05:17 Total Bilirubin < 0.2 L < 0.2 L (0.3-1.2) mg/dL AST 38 H 36 H (0-34) U/L ALT 16 14 (10-49) U/L Alkaline Phosphatase 92 100 (46-116) U/L Albumin 3.7 3.7 (3.4-4.8) gm/dL Urine 04/05/24 Range/Units 13:17 Urine Color Yellow (Lt Yel-Yel) Urine Clarity Turbid A (Clear/Hazy) Urine pH 6.0 (5.0-7.0) Ur Specific Rodney 1.025 (1.001-1.035) Urine Protein 3+ A (Neg - Trace) Urine Glucose (UA) 2+ A (Negative) ABG Interpretation ABG results: 04/05/24 04/06/24 04/06/24 13:11 05:17 13:37 ABG pH 7.23 L 7.23 L ABG pCO2 39 31 L ABG pO2 54 L* 70 L ABG HCO3 16 L 13 L ABG O2 Saturation 86 L 92 ABG Base Excess -11 L -13 L VBG pH 7.23 L VBG pCO2 34 L VBG pO2 35 VBG Base Excess -13 L Quality Measures Quality Measures VTE prophylaxis Advance care planning discussed with:: patient and child Medications Home Medications and Allergies Home Medications ?Medication ?Instructions ?Recorded ?Confirmed ?Type omeprazole 20 mg capsule,delayed 20 mg PO QDAY GERD ##0 06/06/15 03/20/24 History release (Prilosec) insulin glargine 100 unit/mL (3 10 unit subcut QDAY 01/07/20 03/20/24 History mL) subcutaneous pen (Basaglar KwikPen U-100 Insulin) insulin lispro 100 unit/mL 24 unit subcut TID 01/07/20 03/20/24 History subcutaneous pen (Admelog SoloStar U-100 Insulin lispro) acetaminophen 325 mg capsule 650 mg PO TID PRN Pain 12/26/21 04/07/24 History benazepril 40 mg tablet 40 mg PO DAILY 12/26/21 04/07/24 History ergocalciferol (vitamin D2) 1,250 1,250 mcg PO QWEEK 12/26/21 03/20/24 History mcg (50,000 unit) capsule linaclotide 72 mcg capsule 72 mcg PO QDAY 12/26/21 03/20/24 History (Linzess) metformin 1,000 mg tablet 1,000 mg PO BID 12/26/21 04/07/24 History rosuvastatin 40 mg tablet 40 mg PO QDAY 12/26/21 03/20/24 History amlodipine 10 mg tablet 10 mg PO QDAY 04/07/24 04/07/24 History furosemide 20 mg tablet 20 mg PO BID 04/07/24 04/07/24 History metoprolol tartrate 100 mg tablet 100 mg PO BID 04/07/24 04/07/24 History Allergies Allergy/AdvReac Type Severity Reaction Status Date / Time No Known Allergies Allergy Verified 03/20/24 15:08 Visit Medications Acetaminophen (Acetaminophen 325 Mg Tablet) 650 mg PO Q6H PRN PRN Reason: PAIN SCALE 1-3 (mild Stop: 05/05/24 23:05 Acetaminophen (Acetaminophen 325 Mg Tablet) 650 mg PO Q6H PRN PRN Reason: Fever >100 Stop: 05/05/24 23:05 Hydrocodone Bitart/Acetaminophen (Hydrocodone/Apap 10/325 Tab) 1 tab PO Q4HR PRN PRN Reason: PAIN SCALE 7-10 (Severe Stop: 04/10/24 23:05 Albuterol/Ipratropium (Albuterol/Ipratropium (Duoneb) Rt Princess 3 Ml Nebu) 3 ml INH Q6HRRT [facility] Stop: 05/06/24 00:59 Last Admin: 04/06/24 13:53 Dose: 3 ml Aspirin (Aspirin Ec 81 Mg Tabec) 81 mg PO QDAY [facility] Stop: 05/06/24 08:59 Aspirin (Aspirin 300 Mg Supp) 300 mg [place] QDAY [facility] Stop: 05/06/24 12:14 Last Admin: 04/06/24 12:43 Dose: 300 mg Atorvastatin Calcium (Atorvastatin Calcium 20 Mg Tablet) 80 mg PO HS [facility] Stop: 05/06/24 20:59 Ceftriaxone Sodium/Dextrose (Rocephin/D5w 1gm Iv Premix) 50 mls @ 100 mls/hr IV QDAY [facility] Stop: 04/13/24 08:59 Last Admin: 04/06/24 09:01 Dose: 100 mls/hr Azithromycin 250 mg/ Sodium (Chloride) 250 mls @ 250 mls/hr IV HS [facility] Stop: 04/13/24 20:59 Albumin Human (Albuminar-25 Ivpb) 25 gm in 100 mls @ 100 mls/min IV PRN PRN PRN Reason: DIALYSIS Insulin Glargine (Insulin Glargine (Lantus) 5 Unit/0.05 Ml (Per 5 Units)) 6 unit SC QDAY [facility] Stop: 05/06/24 12:14 Last Admin: 04/06/24 12:31 Dose: 6 unit Labetalol HCl (Labetalol Inj 5 Mg/Ml Vial 20 Ml) 10 mg IVP X1 PRN PRN Reason: BP >220/110 Stop: 05/05/24 23:54 Lidocaine HCl (Lidocaine Inj Pf 1% 5 Ml Vial) 9 ml INFL X1 PRN PRN Reason: LOCAL ANESTHESIA Ondansetron HCl (Ondansetron Inj 2 Mg/Ml Inj 2 Ml) 4 mg IV Q6H PRN; Protocol PRN Reason: NAUSEA OR VOMITING Stop: 05/05/24 23:05 Oxycodone/Acetaminophen (Oxycodone/Apap 5/325 Tablet) 1 tab PO Q6H PRN PRN Reason: PAIN SCALE 4-6 (Moderate Stop: 04/10/24 23:05 Pantoprazole Sodium (Pantoprazole Inj 40 Mg Vial) 40 mg IVP QDAY [facility] Stop: 05/06/24 08:59 Last Admin: 04/06/24 09:01 Dose: 40 mg Discontinued Medications Azithromycin (Azithromycin 250 Mg Tablet) 500 mg PO X1 ONE Stop: 04/05/24 17:41 Last Admin: 04/05/24 19:34 Dose: 500 mg Furosemide (Furosemide Inj 10 Mg/Ml 4ml Vial) 40 mg IVP X1 ONE Stop: 04/05/24 23:07 Last Admin: 04/05/24 23:45 Dose: 40 mg Heparin Sodium (Beef Lung) (Heparin Sod Lock Syr 100 Unit/Ml) 500 unit INTRACATH X1 ONE Stop: 04/06/24 11:01 Last Admin: 04/06/24 11:00 Dose: 500 unit Heparin Sodium (Porcine) (Heparin Sod Inj 5000 Unit/Ml Vial) 5,000 unit SC Q8HR DELMY Stop: 04/20/24 05:59 Heparin Sodium (Porcine) (Heparin Sod Inj 5000 Unit/Ml Vial 10 Ml) 3,300 unit INTRACATH X1 ONE Stop: 04/06/24 11:27 Last Admin: 04/06/24 11:35 Dose: 3,300 unit Sodium Chloride (Ns) 1,000 mls @ 999 mls/hr IV .Q1H1M ONE Stop: 04/05/24 15:19 Last Infusion: 04/05/24 19:30 Dose: Infused Ceftriaxone Sodium 1,000 mg/ (Sodium Chloride) 50 mls @ 100 mls/hr IV X1 ONE Stop: 04/05/24 14:55 Last Infusion: 04/05/24 16:10 Dose: Infused Sodium Chloride (Ns) 1,000 mls @ 999 mls/hr IV .Q1H1M ONE Stop: 04/05/24 18:37 Last Admin: 04/05/24 19:34 Dose: Not Given Sodium Bicarbonate (Sodium Bicarb Inj 8.4% Syr 50 Ml Syringe) 50 ml IV X1 ONE Stop: 04/06/24 09:01 Last Admin: 04/06/24 09:52 Dose: 50 ml Sodium Chloride (Sodium Chloride Rt 10% 15 Ml Nebu) 5 ml INH X1 ONE Stop: 04/06/24 00:08 Last Admin: 04/06/24 01:59 Dose: Not Given Tuberculin PPD (Tuberculin Ppd Inj 5 Unit/0.1 Ml Dose) 5 unit ID X1 ONE Stop: 04/06/24 07:54 Last Admin: 04/06/24 12:43 Dose: 5 unit Assessment & Plan Plan The patient is a 64-year-old female with significant past medical history of 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 Stroke alert was called, and underwent stroke workup. tPA not given due to out of window. On further interviewing, she reported that she has been taking some penicillin that was brought from [place] of long time ago. She also took Motrin x 2 in last 2 days. She admitted having fever, denied any chills, lightheadedness, chest pain, and any flank pain. Nephrology consultation was done for further management of ANA LAURA in CKD stage IIIa. 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 intake in the setting of fever. Patient's baseline creatinine is 1.6, and GFR is 56. Currently creatinine 5.9 and GFR 7. ABG significant for acidemia with pH 7.23, pCO2 39, pO2 70. Chemistry panel revealed sodium 133, mild hyperkalemia, bicarb 15.1. -Underwent placement of hemodialysis catheter -Patient will undergo hemodialysis session x 1 this morning, and will require subsequent hemodialysis tomorrow -Stop the offending agent, penicillin which is likely cause of possible ATN -Continue to monitor renal panel -Ordered urine electrolytes, creatinine, urea nitrogen and protein -Ordered US renal #Hypocalcemia 2/2 #Hyperphosphatemia Secondary to ANA LAURA on CKD -Started on calcium carbonate 600 Mg twice daily -We will get phosphorus level tomorrow morning, if given after hemodialysis it is high, we will start the patient on sevelamer -Continue to monitor renal panel #Hypertensive emergency, resolved Likely secondary to CVA -Continue with permissive hypertension -Awaiting MRI brain #Acute encephalopathy #Stroke rule out #Hx of CVA 2019 #Acute nephrolithiasis #Hx of renal calculi #Acute hypoxemic respiratory failure #Community-acquired pneumonia #GEMMA/OHS on oxygen HS #NSTEMI type II (improving) #HTN, HLD #IDDM type II -Management deferred to primary hospitalist team. Thank you for your opportunity to participate nephrology team in this patient care. The patient's management plan was discussed with my attending physician MD Jose Serrano MD, PGY2 Attending Provider Attestation/Addendum Patient seen and examined with resident physician Dr. eNsbitt. Note reviewed, agree with findings and recommendations. Sister is informant. Patient currently seen in telemetry. Patient currently seen in respiratory isolation room. Due to azotemia, metabolic acidosis decided to proceed with dialysis. Dr. Hand placed catheter. Next dialysis scheduled for tomorrow patient currently seen on dialysis. Tolerating dialysis without any problems. Hemodialysis for 2 hours, 2K, ultrafiltration 0 L, Epogen 6000, no heparin ordered. Plan of care discussed with the dialysis nurse. Please see dialysis flowsheet for further details. Thank you Dr. Lopez for allowing me to participate in the care of Ms. Arriaza
--- NOTE | 2024-04-06 14:50 | XR_ITS ---
Examination: Retroperitoneal ultrasound, complete Technique: Multiple high resolution grayscale images of the retroperitoneum obtained, including kidneys and bladder. Exam date and time:April 06, [id number] hours INDICATIONS: Diagnosis chronic kidney disease on laboratory examination this month. FINDINGS: Right kidney 10.9 x 8.0 x 7.4 cm renal cortex 1.8 cm Left kidney 12.1 x 8.7 x 5.2 cm cortex 1.7 cm Moderate bilateral renal parenchymal scar formation No hydronephrosis Contracted urinary bladder IMPRESSION: Moderate bilateral renal parenchymal scar formation Bilateral renal cortical thinning No hydronephrosis
--- NOTE | 2024-04-06 16:10 | ESPR_ITS ---
<Statement entered by Madiha Alejandro MD - 04/06/24 18:06> I discussed with and supervised my co-resident involved in the care of this patient. I agree with the assessment and plan as documented above. Patient seen and examined at bedside. Sister at bedside. Patient on BIPAP, restless. Attempted to remove BIPAP earlier today however patient became lethargic with worsening encephalopathy. Labs show significant ANA LAURA at 5.9 and a non-anion gap metabolic acidosis. Nephrology Dr. Sheridan following. Patient was given bicarb for the metabolic acidosis and went for cathether placement, followed by hemodialysis. For her acute hypoxic respiratory failure secondary to CAP, we will continue IV antibiotics. Follow up with MRI to rule out stroke. Madiha Alejandro MD PGY-3 Documentation for date of: 04/06/24 Subjective Subjective Interval history: Patient appears altered this morning, nonverbal, does not follow commands. Attempted to remove BiPAP this morning, however patient became very lethargic. With BiPAP on patient continues to try to take off the mask. She received her Vas-Cath today for emergent hemodialysis. MRI still pending. Patient receiving dialysis today. Family at the bedside updated on plan. Exam Vital Signs Temp Pulse Resp BP Pulse Ox O2 Del Method O2 Flow Rate 96.8 F 84 24 H 161/88 H 99 Blow-by 30 04/06/24 15:52 04/06/24 16:00 04/06/24 15:52 04/06/24 16:00 04/06/24 15:52 04/06/24 12:00 04/06/24 13:54 FiO2 30 04/06/24 15:52 Narrative Exam Constitutional: Altered, obese Head: Normocephalic/Atraumatic Eyes: PERRL , no conjunctival injection , symmetrical lids. ENMT: Moist Mucous Membranes CVS: RRR, S1 and S2 present, no murmurs, rubs or gallops . RESP: CTAB, mild increased work of breathing, no rales, rhonchi or wheezing, on BiPAP GI: Soft, distended, nontender throughout. MSK: No trauma or deformities or masses. Skin: Warm to touch, Dry. Neuro: GCS 11 (eyes 3, verbal 1, motor 5) moves all limbs spontaneously Objective Labs 04/09/24 04:25 04/09/24 14:51 Labs: Laboratory Results - last 24 hr 04/05/24 04/06/24 04/06/24 20:59 05:17 13:37 WBC 5.7 RBC 3.26 L Hgb 9.1 L Hct 29.8 L MCV 91 MCH 27.9 MCHC 30.5 L RDW Std Deviation 53.2 H Plt Count 257 Neut % (Auto) 81 H Lymph % (Auto) 15 [place] % (Auto) 2 Eos % (Auto) 1 Baso % (Auto) 0 Neut # (Auto) 4.7 Lymph # (Auto) 0.9 L [place] # (Auto) 0.1 Eos # (Auto) 0.1 Baso # (Auto) 0.0 Immature Gran # (Auto) 0.01 H Absolute Nucleated RBC 0.00 Immature Gran % 0 Nucleated RBC % 0 APTT 33.0 Puncture Site Right Radial ABG pH 7.23 L ABG pCO2 31 L ABG pO2 70 L ABG HCO3 13 L ABG O2 Saturation 92 ABG Base Excess -13 L VBG pH 7.23 L VBG pCO2 34 L VBG pO2 35 VBG O2 Sat (Davis) 64 L VBG Base Excess -13 L FiO2 30 Sodium 136 133 L Potassium 4.3 4.8 D Chloride 106 104 Carbon Dioxide 16.0 L 15.1 L Anion Gap 14 14 BUN 61 H 66 H Creatinine 5.4 H* 5.9 H* D Estim Creat Clear Calc 11.2 L 10.5 L eGFR 8 L* 7 L* BUN/Creatinine Ratio 11 L 11 L Glucose 187 H D [address] Glu mg/dL 171 H Hemoglobin A1c 7.6 H Calculated Osmolality 294 293 Lactic Acid 0.8 Calcium 7.6 L 7.5 L Corrected Calcium 7.8 L 7.7 L Phosphorus 9.5 H Total Bilirubin < 0.2 L < 0.2 L AST 38 H 36 H ALT 16 14 Alkaline Phosphatase 92 100 Ammonia < 10 L Total Protein 6.8 7.0 Albumin 3.7 3.7 Globulin 3.1 3.3 Albumin/Globulin Ratio 1.2 1.1 L Triglycerides 493 H Cholesterol 191 LDL Cholesterol, Calc TNP HDL Cholesterol 30 L Cholesterol/HDL Ratio 6.4 H Beta-Hydroxybutyrate/Acetoacetate 0.7 H TSH 1.00 Free T4 1.03 Hepatitis A IgM Ab Non Reactive Hep Bs Antigen Non Reactive Hep B Core IgM Ab Non Reactive Hepatitis C Antibody Non Reactive ABG Interpretation ABG results: 04/05/24 04/06/24 04/06/24 13:11 05:17 13:37 ABG pH 7.23 L 7.23 L ABG pCO2 39 31 L ABG pO2 54 L* 70 L ABG HCO3 16 L 13 L ABG O2 Saturation 86 L 92 ABG Base Excess -11 L -13 L VBG pH 7.23 L VBG pCO2 34 L VBG pO2 35 VBG Base Excess -13 L Quality Measures Quality Measures VTE prophylaxis Advance care planning discussed with:: other Assessment & Plan Assessment Current Active Medications: Generic Name Dose Route Start Last Admin Trade Name Freq PRN Reason Stop Dose Admin Acetaminophen 650 mg 04/05/24 23:06 Acetaminophen 325 Mg Tablet PO 05/05/24 23:05 Q6H PRN PAIN SCALE 1-3 (mild Acetaminophen 650 mg 04/05/24 23:06 Acetaminophen 325 Mg Tablet PO 05/05/24 23:05 Q6H PRN Fever >100 Hydrocodone Bitart/Acetaminophen 1 tab 04/05/24 23:06 Hydrocodone/Apap 10/325 Tab PO 04/10/24 23:05 Q4HR PRN PAIN SCALE 7-10 (Severe Albuterol/Ipratropium 3 ml 04/06/24 01:00 04/06/24 13:53 Albuterol/Ipratropium (Duoneb) Rt Princess 3 Ml Nebu INH 05/06/24 00:59 3 ml Q6HRRT DELMY Administration Aspirin 81 mg 04/06/24 09:00 04/06/24 15:41 Aspirin Ec 81 Mg Tabec PO 05/06/24 08:59 Not Given QDAY DELMY Aspirin 300 mg 04/06/24 12:15 04/06/24 12:43 Aspirin 300 Mg Supp WV 05/06/24 12:14 300 mg QDAY DELMY Administration Atorvastatin Calcium 80 mg 04/06/24 21:00 Atorvastatin Calcium 20 Mg Tablet PO 05/06/24 20:59 HS DELMY Calcium Carbonate 600 mg 04/06/24 14:45 04/06/24 15:37 Calcium Carbonate 600 Mg Tablet PO 05/06/24 14:44 Not Given BID DELMY Heparin Sodium (Porcine) 3,300 unit 04/06/24 15:03 Heparin Sod Inj 1000 Unit/Ml Vial 10 Ml INDWELLCAT 04/20/24 15:02 PRN PRN DIALYSIS Ceftriaxone Sodium/Dextrose 50 mls @ 100 mls/hr 04/06/24 09:00 04/06/24 09:01 Rocephin/D5w 1gm Iv Premix IV 04/13/24 08:59 100 mls/hr QDAY DELMY Administration Azithromycin 250 mg/ Sodium 250 mls @ 250 mls/hr 04/06/24 21:00 Chloride IV 04/13/24 20:59 HS DELMY Albumin Human 25 gm in 100 mls @ 100 mls/min 04/06/24 08:27 Albuminar-25 Ivpb IV PRN PRN DIALYSIS Insulin Glargine 6 unit 04/06/24 12:15 04/06/24 12:31 Insulin Glargine (Lantus) 5 Unit/0.05 Ml (Per 5 Units) SC 05/06/24 12:14 6 unit QDAY DELMY Administration Labetalol HCl 10 mg 04/05/24 23:55 Labetalol Inj 5 Mg/Ml Vial 20 Ml IVP 05/05/24 23:54 X1 PRN BP >220/110 Lidocaine HCl 9 ml 04/06/24 11:00 Lidocaine Inj Pf 1% 5 Ml Vial INFL X1 PRN LOCAL ANESTHESIA Protocol Ondansetron HCl 4 mg 04/05/24 23:06 Ondansetron Inj 2 Mg/Ml Inj 2 Ml IV 05/05/24 23:05 Q6H PRN NAUSEA OR VOMITING Protocol Oxycodone/Acetaminophen 1 tab 04/05/24 23:06 Oxycodone/Apap 5/325 Tablet PO 04/10/24 23:05 Q6H PRN PAIN SCALE 4-6 (Moderate Pantoprazole Sodium 40 mg 04/06/24 09:00 04/06/24 09:01 Pantoprazole Inj 40 Mg Vial IVP 05/06/24 08:59 40 mg QDAY DELMY Administration Plan In summary: 64-year-old female with PMHx of CVA 2018, residual left-sided deficit, nephrolithiasis, HTN, HLD, chronic anemia and T2DM presenting with strokelike symptoms. Admitted for stroke r/o, ANA LAURA and pneumonia. Acute encephalopathy ANA LAURA on possible CKD stage IIIb Hx of renal calculi CR 5.4 (baseline 1.6), GFR 8% (baseline 36). Reports poor oral intake over the last week in the setting of illness. Has 10 mm and 14 mm left renal calculi on CT, however no reported obstructive uropathy or hydronephrosis. Normal CT suggest cystitis, less likely she has UTI, asymptomatic, afebrile, no leukocytosis, UA does not suggest this. Received 1.0 L bolus in ED, laxix once admitted, repeat CMP showed no improvement in CR. Urology consulted. Status post placement of Vas-Cath. Currently receiving hemodialysis. ?Will repeat BMP after HD and ABG and trial patient off BiPAP. If unable to tolerate will consider upgrade to ICU for further airway management. ? Nephrology consulted: -Started on calcium carbonate 600 Mg twice daily -We will get phosphorus level tomorrow morning, if given after hemodialysis it is high, we will start the patient on sevelamer -Continue to monitor renal panel ? Pending urine culture Acute hypoxemic respiratory failure Community-acquired pneumonia GEMMA/OHS on oxygen HS Reports 1 week of cough associated with worsening shortness of breath over the last few days. Radiography suggested pneumonia. Previously had sleep study, prescribed CPAP but did not tolerate Afebrile, no leukocytosis. Was started on CPAP last night, unable to wean off during the day as patient becomes very somnolent/lethargic. Will follow-up after emergent dialysis. If patient continues to require BiPAP will consider upgrading to ICU for possible intubation. ?CEFTRIAXONE (2/2 to present) ?AZITHROMYCIN (2/2 to present) ? DuoNebs q.6h ? Pending sputum cultures ?On CPAP will wean O2 as tolerated Stroke rule out Hx of CVA 2019 Presenting with acute slurred speech and difficulty finding sentences that started 2 days ago. Had a stroke in 2018 with residual left-sided weakness, currently needs assistance with ambulation, uses walker or siderails. Head CT was negative. Per teleneuro evaluation, most likely she has metabolic encephalopathy over CVA. Recommended MRI brain without contrast, carotid duplex, ASPIRIN therapy, no antiplatelets. Currently unable to do contrast study due to ANA LAURA. On my exam today patient is nonverbal. ? LABETALOL 5 mg for BP >180 systolic ? ASPIRIN 81 mg daily, patient given 1 dose of 300 mg [place] today due to inability to tolerate p.o. ? ATORVASTATIN 80 mg ? Pending physical therapy evaluation ? Pending echocardiogram ? Pending in-house neurology recommendations ? Pending MRI?unable to complete today due to needing continuous BiPAP and altered, not following commands or inability to stay still ? Pending carotid duplex ? Consider Holter monitor outpatient (per teleneuro) NSTEMI type II (improving) Likely demand ischemia in settings of dehydration. EKG showed sinus bradycardia, T wave inversions and Q waves in lateral leads. Troponin 1.319 then 1.271 on repeat. Asymptomatic without chest pain or palpitations HTN, HLD ? LABETALOL 5 mg as needed > 180 systolic ? ATORVASTATIN 80 mg daily ? Consider restarting antihypertensives as indicated. IDDM A1c 5.9 ? Continue home glargine 6 units HS ? Continue sliding scale ? [facility] Diet: NPO pending speech eval DVT prophylaxis: SCD GI prophylaxis: PROTONIX Antibiotics: CTX, AZITHROMYCIN Disposition: Stroke work-up, ANA LAURA, PNA Patient case was discussed with attending, John FRANCISCO. Raymond Ayala DO, PGY1 Attending Provider Attestation/Addendum Face to face evaluation was performed by me. I have personally seen and examined the patient. I discussed the assessment and plan with the entire medicine team. I reviewed available medical records, imaging studies, laboratory results. I agree with the above subjective data, objective findings, assessment and plan except as corrected by me or noted below Acute encephalopathy, metabolic Acute renal failure on CKD stage 3 requiring HD Hx of renal calculi Acute hypoxic respiratory failure CAP, bacterial ,likely GPC - Continue with ABXs -HD per nephrology -Urology consulted Dr Pinto BiPAP as needed supplemental O2 Monitor clinical course closely
--- NOTE | 2024-04-06 16:17 | PC.SS ---
SS follow up note; SS was informed during rounding that patient might be a new dialysis patient. SS will follow up with Team A tomorrow to determine if patient will be new Dialysis or will only need dialysis temporarily. .
[2024-04-06] MEDS: HEPARIN SOD INJ 1000 UNIT/ML VIAL 10 ML 3300 UNIT INDWELLCAT (16:22)
[2024-04-06 17:08] LABS: Base Excess -2 (-3-3); HCO3 23 mEq/L (20-26); Inspired Oxygen, FIO2 40 %; O2 Saturation 94 % (91-98); PCO2 35 mmHg (32.0-48.0); PO2 69 mmHg (83-108); pH, Arterial 7.42 (7.35-7.45)
[2024-04-06 17:16] LABS: Allen Test Performed/OK; Puncture Site Right Radial
[2024-04-06 18:08] LABS: Creatinine,Random Urine 113 mg/dL (30-125); Potassium,Urine Random 33 mMol/L (12-62); Protein Total, Random Urine 598 mg/dL (1-14)
[2024-04-06 18:08] LABS: Basophils % (Auto) 0 % (0-2.5); Eosinophils % (Auto) 0 % (0-10); Hematocrit 25.7 % (36.0-46.0); Immature Granulocytes % (Auto) 0 % (0-0); Immature Granulocytes Auto 0.02 Thou/mm3 (0.00-0.00); Lymphocytes # (Auto) 0.8 Thou/mm3 (1.0-4.8); Lymphocytes % (Auto) 13 % (10-50); Mean Corpuscular HGB Conc 33.1 g/dl (31.0-37.0); Mean Corpuscular Hemoglobin 28.1 pg (25.0-35.0); Mean Corpuscular Volume 85 fL (80-100); Monocytes # (Auto) 0.1 Thou/mm3 (0.0-0.8); Monocytes % (Auto) 2 % (0-12); Neutrophils # (Auto) 4.9 Thou/mm3 (1.8-7.7); Neutrophils % (Auto) 85 % (37-80); Nucleated Red Blood Cell % 0 /100 WBC (0); Platelet Count 230 Thou/mm3 (140-440); RDW Standard Deviation 49.4 fL (36.4-46.3); Red Blood Count 3.03 Miln/mm3 (4.00-5.20); White Blood Count 5.8 Thou/mm3 (3.6-11.0)
--- NOTE | 2024-04-06 18:42 | EKG_ITS ---
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
--- NOTE | 2024-04-06 18:42 | XR_ITS ---
Examination: AP chest single view TECHNIQUE: Portable AP sitting chest single view Exam date and time: April 06, 2024 1859 hours INDICATIONS: Sepsis protocol. FINDINGS: Bilateral opacity consistent with pneumonia and probable pulmonary edema Mild enlargement cardiac contour with vascular congestion Right internal jugular dialysis catheter is satisfactory resolution IMPRESSION: Bibasilar pneumonia Associated heart failure
[2024-04-06 18:49] LABS: Alanine Aminotransferase 14 U/L (10-49); Albumin, Serum 3.5 gm/dL (3.4-4.8); Albumin/Globulin Ratio 1.2 (1.2-2.2); Alkaline Phosphatase 92 U/L (46-116); Anion Gap 16 (7-16); Aspartate Amino Transferase 46 U/L (0-34); BUN/Creatinine Ratio 11 Ratio (12-20); Bilirubin,Total < 0.2 mg/dL (0.3-1.2); Blood Urea Nitrogen 45 mg/dL (9-23); Calcium 7.5 mg/dL (8.3-10.6); Calcium (Corrected) 7.9 mg/dL (8.5-10.1); Carbon Dioxide 21.4 mMol/L (20.0-31.0); Chloride 100 mMol/L (98-107); Creatinine (Component) 4.1 mg/dL (0.6-1.3); Glucose 205 mg/dL (74-106); Osmolality,Calculated 291 (275-295); Potassium 3.7 mMol/L (3.4-5.1); Sodium 137 mMol/L (136-145); Total Protein 6.5 gm/dL (5.7-8.2); eGFR 11 See Note
[2024-04-06] MEDS: ACETAMINOPHEN SUPP 650 MG SUPP PR (18:49)
[2024-04-06 19:04] LABS: Hemoglobin 8.5 g/dL (12.0-16.0)
[2024-04-06 19:11] LABS: Lactate (Lactic Acid) 1.4 mMol/L (0.4-2.0)
--- NOTE | 2024-04-06 19:11 | EVENTNT_ITS ---
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 Saturating well on BIPAP. SBP in 170s, HR in 90s. Patient still encephalopathic. Patient had first session of HD earlier. ABG from 5pm unremarkable, pH 7.42. Sepsis alert was called. Repeat CBC, CMP, lactic acid, repeat cultures ordered. Cocci ordered. CXR and EKG also ordered. Patient on ceftriaxone and azithromycin for CAP. Will broaden to cefepime and doxycyline and follow up cultures, MRSA screen. Tyelonel MI for fever, as patient unable to swallow. Madiha Alejandro MD PGY-3
[2024-04-06 19:14] LABS: Basophils % (Auto) 0 % (0-2.5); Eosinophils % (Auto) 0 % (0-10); Hematocrit 26.4 % (36.0-46.0); Immature Granulocytes % (Auto) 0 % (0-0); Immature Granulocytes Auto 0.02 Thou/mm3 (0.00-0.00); Lymphocytes # (Auto) 1.1 Thou/mm3 (1.0-4.8); Lymphocytes % (Auto) 16 % (10-50); Mean Corpuscular HGB Conc 33.3 g/dl (31.0-37.0); Mean Corpuscular Hemoglobin 28.3 pg (25.0-35.0); Mean Corpuscular Volume 85 fL (80-100); Monocytes # (Auto) 0.1 Thou/mm3 (0.0-0.8); Monocytes % (Auto) 2 % (0-12); Neutrophils # (Auto) 5.3 Thou/mm3 (1.8-7.7); Neutrophils % (Auto) 81 % (37-80); Nucleated Red Blood Cell % 0 /100 WBC (0); Platelet Count 242 Thou/mm3 (140-440); RDW Standard Deviation 49.5 fL (36.4-46.3); Red Blood Count 3.11 Miln/mm3 (4.00-5.20); White Blood Count 6.5 Thou/mm3 (3.6-11.0)
[2024-04-06 19:21] LABS: Hemoglobin 8.8 g/dL (12.0-16.0)
[2024-04-06 19:34] LABS: Partial Thromboplastin Time 31.6 Seconds (22.0-36.0); Prothrombin Time 10.8 Seconds (9.0-12.2)
[2024-04-06] MEDS: CEFEPIME INJ 2 GM in SODIUM CHLORIDE 0.9% 50 ML IV (20:20)
[2024-04-06 20:24] LABS: Alanine Aminotransferase 15 U/L (10-49); Albumin, Serum 3.6 gm/dL (3.4-4.8); Albumin/Globulin Ratio 1.2 (1.2-2.2); Alkaline Phosphatase 95 U/L (46-116); Anion Gap 16 (7-16); Aspartate Amino Transferase 47 U/L (0-34); BUN/Creatinine Ratio 11 Ratio (12-20); Bilirubin,Total < 0.2 mg/dL (0.3-1.2); Blood Urea Nitrogen 46 mg/dL (9-23); Calcium 7.6 mg/dL (8.3-10.6); Calcium (Corrected) 7.9 mg/dL (8.5-10.1); Carbon Dioxide 20.3 mMol/L (20.0-31.0); Chloride 101 mMol/L (98-107); Creatinine (Component) 4.2 mg/dL (0.6-1.3); Estimated Creatinine Clearance 14.7 mL/min (>60); Glucose 223 mg/dL (74-106); Osmolality,Calculated 292 (275-295); Potassium 3.6 mMol/L (3.4-5.1); Procalcitonin 1.68 ng/ml (0.0-0.49); Sodium 137 mMol/L (136-145); Total Protein 6.6 gm/dL (5.7-8.2); eGFR 11 See Note
[2024-04-06] MEDS: DOXYCYCLINE INJ 100 MG in SODIUM CHLORIDE 0.9% (P) 100 ML IV (21:04)
[2024-04-06 22:09] LABS: Collection Type, Urine Catheter
[2024-04-06 22:45] LABS: Respiratory Syncytial Virus Ag Negative (Negative)
[2024-04-06] MEDS: HALOPERIDOL LACT INJ 5 MG/ML VIAL 2.5 MG IV (23:24)
[2024-04-06] MEDS: FUROSEMIDE INJ 10 MG/ML 4ML VIAL 40 MG IVP (23:25)
[2024-04-06 23:34] LABS: Bacteria,Urine Rare; Bilirubin,Urine Negative (Negative); Blood,Urine 3+ (Negative); Budding Yeast,Urine Present; Clarity,Urine Turbid (Clear/Hazy); Color,Urine Yellow (Lt Yel-Yel); Glucose, Urine 1+ (Negative); Ketones,Urine 1+ (Negative); Leukocyte Esterase,Urine Negative (Negative); Nitrite,Urine Negative (Negative); Protein,Urine 3+ (Neg - Trace); RBC,Urine 197 /hpf (0-3); Squamous Epithelial Cell,Urine 3 /hpf (0-5); Urobilinogen,Urine Negative mg/dL (0.0-1.0); WBC,Urine 24 /hpf (0-5)
--- NOTE | 2024-04-06 23:50 | PD.NEUROPROG ---
Documentation for date of: 04/06/24 Subjective Subjective Interval history: Patient was seen in telemetry today. Continues to be somnolent, aphasic, started having constant myoclonus involving the right hemiface. No similar movements involving the arms and legs noted Exam - Neurology Vital Signs Temp Pulse Resp BP Pulse Ox O2 Del Method O2 Flow Rate 97.0 F 84 20 158/82 H 96 High Flow Nasal Cannula 30 04/06/24 20:14 04/06/24 23:25 04/06/24 20:00 04/06/24 23:25 04/06/24 20:00 04/06/24 20:00 04/06/24 16:50 FiO2 40 04/06/24 18:35 Narrative Exam GENERAL APPEARANCE: Well-developed, obese built female in mild distress. HEENT: Normocephalic, atraumatic, extraocular movements intact. Pupils: Equal reacting to light NECK: Supple, no JVD or bruits. CARDIOVASULAR: Heart: S1, S2 heard, regular without S3-S4 or murmur no rubs or gallops. LUNGS/CHEST: Clear to auscultation bilaterally. No rails, rhonchi, or wheezing. Normal inspection. ABDOMEN: Soft, nontender, with normal bowel sounds. No pulsatile masses. No rebound, rigidity, or guarding. Normal inspection and palpation. EXTREMITIES: Normal inspection and palpation. No edema, clubbing or cyanosis. SKIN: Warm and dry without rashes. Normal inspection. MUSCULOSKELETAL: No cervical, thoracic, lumbar or midline bony tenderness. Normal inspection. NEURO: awake, not responsive to verbal commands, aphasic, some intermittent purposeful movements noted in both upper and lower extremities. Facial myoclonic twitching in right hemiface noted. No signs of meningeal irritation noted. Rest of the exam limited secondary to mental status PSYCHIATRIC: Limited Constitutional Constitutional: no acute distress Objective Labs 04/09/24 04:25 04/09/24 04:25 Labs: Laboratory Results - last 24 hr 04/06/24 04/06/24 04/06/24 05:17 13:37 16:56 WBC 5.7 RBC 3.26 L Hgb 9.1 L Hct 29.8 L MCV 91 MCH 27.9 MCHC 30.5 L RDW Std Deviation 53.2 H Plt Count 257 Neut % (Auto) 81 H Lymph % (Auto) 15 [place] % (Auto) 2 Eos % (Auto) 1 Baso % (Auto) 0 Neut # (Auto) 4.7 Lymph # (Auto) 0.9 L [place] # (Auto) 0.1 Eos # (Auto) 0.1 Baso # (Auto) 0.0 Immature Gran # (Auto) 0.01 H Absolute Nucleated RBC 0.00 Immature Gran % 0 Nucleated RBC % 0 PT INR APTT 33.0 Puncture Site Right Radial Right Radial ABG pH 7.23 L 7.42 D ABG pCO2 31 L 35 ABG pO2 70 L 69 L ABG HCO3 13 L 23 ABG O2 Saturation 92 94 ABG Base Excess -13 L -2 VBG pH 7.23 L VBG pCO2 34 L VBG pO2 35 VBG O2 Sat (Davis) 64 L VBG Base Excess -13 L FiO2 30 40 Sodium 133 L Potassium 4.8 D Chloride 104 Carbon Dioxide 15.1 L Anion Gap 14 BUN 66 H Creatinine 5.9 H* D Estim Creat Clear Calc 10.5 L eGFR 7 L* BUN/Creatinine Ratio 11 L Glucose [address] Glu mg/dL 171 H Hemoglobin A1c 7.6 H Calculated Osmolality 293 Lactic Acid 0.8 Calcium 7.5 L Corrected Calcium 7.7 L Phosphorus 9.5 H Total Bilirubin < 0.2 L AST 36 H ALT 14 Alkaline Phosphatase 100 Ammonia < 10 L Total Protein 7.0 Albumin 3.7 Globulin 3.3 Albumin/Globulin Ratio 1.1 L Triglycerides 493 H Cholesterol 191 LDL Cholesterol, Calc TNP HDL Cholesterol 30 L Cholesterol/HDL Ratio 6.4 H Beta-Hydroxybutyrate/Acetoacetate 0.7 H Procalcitonin TSH 1.00 Free T4 1.03 Ur Collection Type Urine Color Urine Clarity Urine pH Ur Specific [place] Urine Protein Urine Glucose (UA) Urine Ketones Urine Blood Urine Nitrite Urine Bilirubin Urine Urobilinogen (Auto) Ur Leukocyte Esterase Urine RBC Urine WBC Ur Squamous Epith Cells Urine Bacteria Urine Yeast (Budding) Ur Random Creatinine U Random Total Protein Ur Random Sodium Ur Random Potassium Ur Random Chloride Ur Random Urea Nitrogn Hepatitis A IgM Ab Non Reactive Hep Bs Antigen Non Reactive Hep B Core IgM Ab Non Reactive Hepatitis C Antibody Non Reactive RSV Rapid 04/06/24 04/06/24 04/06/24 17:15 18:00 18:57 WBC 5.8 6.5 RBC 3.03 L 3.11 L Hgb 8.5 L 8.8 L Hct 25.7 L 26.4 L MCV 85 85 MCH 28.1 28.3 MCHC 33.1 33.3 RDW Std Deviation 49.4 H 49.5 H Plt Count 230 242 Neut % (Auto) 85 H 81 H Lymph % (Auto) 13 16 [place] % (Auto) 2 2 Eos % (Auto) 0 0 Baso % (Auto) 0 0 Neut # (Auto) 4.9 5.3 Lymph # (Auto) 0.8 L 1.1 [place] # (Auto) 0.1 0.1 Eos # (Auto) 0.0 0.0 Baso # (Auto) 0.0 0.0 Immature Gran # (Auto) 0.02 H 0.02 H Absolute Nucleated RBC 0.00 0.00 Immature Gran % 0 0 Nucleated RBC % 0 0 PT 10.8 INR 1.0 APTT 31.6 Puncture Site ABG pH ABG pCO2 ABG pO2 ABG HCO3 ABG O2 Saturation ABG Base Excess VBG pH VBG pCO2 VBG pO2 VBG O2 Sat (Davis) VBG Base Excess FiO2 Sodium 137 137 Potassium 3.7 D 3.6 Chloride 100 101 Carbon Dioxide 21.4 20.3 Anion Gap 16 16 BUN 45 H 46 H Creatinine 4.1 H* D 4.2 H* Estim Creat Clear Calc 15.0 L 14.7 L eGFR 11 L* 11 L* BUN/Creatinine Ratio 11 L 11 L Glucose [address] Glu mg/dL Hemoglobin A1c Calculated Osmolality 291 292 Lactic Acid 1.4 Calcium 7.5 L 7.6 L Corrected Calcium 7.9 L 7.9 L Phosphorus Total Bilirubin < 0.2 L < 0.2 L AST 46 H 47 H ALT 14 15 Alkaline Phosphatase 92 95 Ammonia Total Protein 6.5 6.6 Albumin 3.5 3.6 Globulin 3.0 3.0 Albumin/Globulin Ratio 1.2 1.2 Triglycerides Cholesterol LDL Cholesterol, Calc HDL Cholesterol Cholesterol/HDL Ratio Beta-Hydroxybutyrate/Acetoacetate Procalcitonin 1.68 H TSH Free T4 Ur Collection Type Urine Color Urine Clarity Urine pH Ur Specific [place] Urine Protein Urine Glucose (UA) Urine Ketones Urine Blood Urine Nitrite Urine Bilirubin Urine Urobilinogen (Auto) Ur Leukocyte Esterase Urine RBC Urine WBC Ur Squamous Epith Cells Urine Bacteria Urine Yeast (Budding) Ur Random Creatinine 113 U Random Total Protein 598 H Ur Random Sodium 42.0 Ur Random Potassium 33 Ur Random Chloride 27.0 L Ur Random Urea Nitrogn 302.0 L Hepatitis A IgM Ab Hep Bs Antigen Hep B Core IgM Ab Hepatitis C Antibody RSV Rapid 04/06/24 04/06/24 21:35 21:39 WBC RBC Hgb Hct MCV MCH MCHC RDW Std Deviation Plt Count Neut % (Auto) Lymph % (Auto) [place] % (Auto) Eos % (Auto) Baso % (Auto) Neut # (Auto) Lymph # (Auto) [place] # (Auto) Eos # (Auto) Baso # (Auto) Immature Gran # (Auto) Absolute Nucleated RBC Immature Gran % Nucleated RBC % PT INR APTT Puncture Site ABG pH ABG pCO2 ABG pO2 ABG HCO3 ABG O2 Saturation ABG Base Excess VBG pH VBG pCO2 VBG pO2 VBG O2 Sat (Davis) VBG Base Excess FiO2 Sodium Potassium Chloride Carbon Dioxide Anion Gap BUN Creatinine Estim Creat Clear Calc eGFR BUN/Creatinine Ratio Glucose Estimated Ave Glu mg/dL Hemoglobin A1c Calculated Osmolality Lactic Acid Calcium Corrected Calcium Phosphorus Total Bilirubin AST ALT Alkaline Phosphatase Ammonia Total Protein Albumin Globulin Albumin/Globulin Ratio Triglycerides Cholesterol LDL Cholesterol, Calc HDL Cholesterol Cholesterol/HDL Ratio Beta-Hydroxybutyrate/Acetoacetate Procalcitonin TSH Free T4 Ur Collection Type Catheter Urine Color Yellow Urine Clarity Turbid A Urine pH 6.0 Ur Specific [place] 1.020 Urine Protein 3+ A Urine Glucose (UA) 1+ A Urine Ketones 1+ A Urine Blood 3+ A Urine Nitrite Negative Urine Bilirubin Negative Urine Urobilinogen (Auto) Negative Ur Leukocyte Esterase Negative Urine RBC 197 H Urine WBC 24 H Ur Squamous Epith Cells 3 Urine Bacteria Rare Urine Yeast (Budding) Present A Ur Random Creatinine U Random Total Protein Ur Random Sodium Ur Random Potassium Ur Random Chloride Ur Random Urea Nitrogn Hepatitis A IgM Ab Hep Bs Antigen Hep B Core IgM Ab Hepatitis C Antibody RSV Rapid Negative ABG Interpretation ABG results: 04/05/24 04/06/24 04/06/24 13:11 05:17 13:37 ABG pH 7.23 L 7.23 L ABG pCO2 39 31 L ABG pO2 54 L* 70 L ABG HCO3 16 L 13 L ABG O2 Saturation 86 L 92 ABG Base Excess -11 L -13 L VBG pH 7.23 L VBG pCO2 34 L VBG pO2 35 VBG Base Excess -13 L 04/06/24 16:56 ABG pH 7.42 D ABG pCO2 35 ABG pO2 69 L ABG HCO3 23 ABG O2 Saturation 94 ABG Base Excess -2 VBG pH VBG pCO2 VBG pO2 VBG Base Excess Assessment & Plan Assessment and plan (1) Altered mental status: Status: Acute Assessment and plan: will order Repeat CT head as MRI cannot be done. (2) ANA LAURA (acute kidney injury): Status: Acute Assessment and plan: Kidney function is improving slowly
[2024-04-07] VITALS (26 sets, daily range): BP systolic 104–154; BP diastolic 27–84; PULSE 63–93; RESP 15–26; TEMP 36.3–38.4; O2SAT 92–97; BMI 45.8; BMI 46.1
[2024-04-07] MEDS: ALBUTEROL/IPRATROPIUM (Duoneb) RT SOL 3 ML NEBU INH ×4 (01:00→18:50)
[2024-04-07 06:29] LABS: Basophils % (Auto) 0 % (0-2.5); Eosinophils % (Auto) 0 % (0-10); Hematocrit 25.4 % (36.0-46.0); Immature Granulocytes % (Auto) 0 % (0-0); Immature Granulocytes Auto 0.02 Thou/mm3 (0.00-0.00); Lymphocytes % (Auto) 16 % (10-50); Mean Corpuscular HGB Conc 32.7 g/dl (31.0-37.0); Mean Corpuscular Hemoglobin 28.4 pg (25.0-35.0); Mean Corpuscular Volume 87 fL (80-100); Monocytes # (Auto) 0.1 Thou/mm3 (0.0-0.8); Monocytes % (Auto) 2 % (0-12); Neutrophils % (Auto) 82 % (37-80); Nucleated Red Blood Cell % 0 /100 WBC (0); Platelet Count 230 Thou/mm3 (140-440); RDW Standard Deviation 51.5 fL (36.4-46.3); Red Blood Count 2.92 Miln/mm3 (4.00-5.20); White Blood Count 6.1 Thou/mm3 (3.6-11.0)
[2024-04-07 06:30] LABS: Hemoglobin 8.3 g/dL (12.0-16.0)
[2024-04-07 07:05] LABS: Alanine Aminotransferase 15 U/L (10-49); Albumin, Serum 3.4 gm/dL (3.4-4.8); Albumin/Globulin Ratio 1.2 (1.2-2.2); Alkaline Phosphatase 86 U/L (46-116); Anion Gap 15 (7-16); Aspartate Amino Transferase 57 U/L (0-34); BUN/Creatinine Ratio 11 Ratio (12-20); Bilirubin,Total 0.2 mg/dL (0.3-1.2); Blood Urea Nitrogen 52 mg/dL (9-23); Calcium 7.6 mg/dL (8.3-10.6); Calcium (Corrected) 8.1 mg/dL (8.5-10.1); Carbon Dioxide 21.1 mMol/L (20.0-31.0); Chloride 102 mMol/L (98-107); Creatinine (Component) 4.9 mg/dL (0.6-1.3); Estimated Creatinine Clearance 12.6 mL/min (>60); Globulin 2.8 gm/dL (2.3-3.5); Glucose 279 mg/dL (74-106); Magnesium 1.8 mg/dL (1.6-2.6); Osmolality,Calculated 299 (275-295); Potassium 3.9 mMol/L (3.4-5.1); Sodium 138 mMol/L (136-145); Total Protein 6.2 gm/dL (5.7-8.2); eGFR 9 See Note
--- NOTE | 2024-04-07 07:49 | PC.NURSE ---
Blood sugar check at 0745, 293. Pt not eating. Contacted . said to give Lantus at 9. Will change blood sugar checks to q6.
--- NOTE | 2024-04-07 09:09 | PD.RESPRO ---
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 Stroke alert was called, and underwent stroke workup. tPA not given due to out of window. On further interviewing, she reported that she has been taking some penicillin that was brought from [place] of long time ago. She also took Motrin x 2 in last 2 days. She admitted having fever, denied any chills, lightheadedness, chest pain, and any flank pain. Her vitals are fairly stable, hemoglobin 9.1, ABG significant for pH 7.23, pCO2 39, pO2 70. Chemistry panel revealed sodium 133, mild hyperkalemia, bicarb 15.1. BUN 66, creatinine 5.9, EGFR 7. Baseline creatinine is 1.6 with EGFR 56. Triglyceride 493, cholesterol 191, HDL 30 with normal TSH and T4. Hepatitis panel negative. CT head negative for midline shift, acute hemorrhage or mass effect. Pending carotid US, and brain MRI. CXR with mild congestion and superimposed pneumonia. CT abdomen pelvis revealed significant hepatomegaly, moderate bilateral renal parenchymal scarring, 10 mm and 14 mm renal calculi on the left, cystitis pattern, no hydronephrosis or bowel obstruction. PMH: As mentioned above Social history: Denies alcohol, smoking or any illicit drug use Allergies: No known allergies 04/07/2024: The patient was interviewed and examined at the bedside. She was saturating 93% on BiPAP, with FiO2 40% and O2 flow 30 L. Chemistry panel revealed BUN 52, creatinine 4.9, EGFR 9, blood sugar 279, calcium 8.1 and phosphorus 6.0. The patient will get second session of hemodialysis this morning. Urine random creatinine 113, protein 598, sodium 42, potassium 33, chloride 27, urea nitrogen 302. Renal ultrasound significant for moderate bilateral renal parenchymal eschar formation, bilateral renal cortical thinning with no hydronephrosis. Exam Vital Signs Temp Pulse Resp BP Pulse Ox O2 Del Method O2 Flow Rate 97.8 F 89 20 137/67 H 93 L Mechanical Ventilation 30 04/07/24 08:28 04/07/24 09:00 04/07/24 08:28 04/07/24 09:00 04/07/24 08:28 04/07/24 08:00 04/07/24 08:28 FiO2 40 04/07/24 08:28 Narrative Exam General: No acute distress, Alert and Oriented x 3 HEENT: Moist mucous membranes, oropharynx clear Neck: Supple, No masses, No JVD CVS: S1S2 Regular rate and rhythm, No murmurs, rubs or gallops Lungs: Distant breath sounds, mild bibasilar crackles, no wheeze no rhonchi Abd: Soft, NT/ND, +BS, no organomegaly Ext: 1-2+ bilateral lower limb edema, warm and well perfused, peripheral arteries barely palpable Skin: No rash Neuromuscular: Left upper and lower extremity decreased strength and sensation Psych: Appropriate mood and affect Objective Labs 04/07/24 05:05 04/07/24 12:15 Labs: Laboratory Results - last 24 hr 04/06/24 04/06/24 04/06/24 13:37 16:56 17:15 WBC RBC Hgb Hct MCV MCH MCHC RDW Std Deviation Plt Count Neut % (Auto) Lymph % (Auto) [place] % (Auto) Eos % (Auto) Baso % (Auto) Neut # (Auto) Lymph # (Auto) [place] # (Auto) Eos # (Auto) Baso # (Auto) Immature Gran # (Auto) Absolute Nucleated RBC Immature Gran % Nucleated RBC % PT INR APTT Puncture Site Right Radial Right Radial ABG pH 7.23 L 7.42 D ABG pCO2 31 L 35 ABG pO2 70 L 69 L ABG HCO3 13 L 23 ABG O2 Saturation 92 94 ABG Base Excess -13 L -2 FiO2 30 40 Sodium Potassium Chloride Carbon Dioxide Anion Gap BUN Creatinine Estim Creat Clear Calc eGFR BUN/Creatinine Ratio Glucose Calculated Osmolality Lactic Acid Calcium Corrected Calcium Phosphorus Magnesium Total Bilirubin AST ALT Alkaline Phosphatase Total Protein Albumin Globulin Albumin/Globulin Ratio Procalcitonin Ur Collection Type Urine Color Urine Clarity Urine pH Ur Specific [place] Urine Protein Urine Glucose (UA) Urine Ketones Urine Blood Urine Nitrite Urine Bilirubin Urine Urobilinogen (Auto) Ur Leukocyte Esterase Urine RBC Urine WBC Ur Squamous Epith Cells Urine Bacteria Urine Yeast (Budding) Ur Random Creatinine 113 U Random Total Protein 598 H Ur Random Sodium 42.0 Ur Random Potassium 33 Ur Random Chloride 27.0 L Ur Random Urea Nitrogn 302.0 L RSV Rapid 04/06/24 04/06/24 04/06/24 18:00 18:57 21:35 WBC 5.8 6.5 RBC 3.03 L 3.11 L Hgb 8.5 L 8.8 L Hct 25.7 L 26.4 L MCV 85 85 MCH 28.1 28.3 MCHC 33.1 33.3 RDW Std Deviation 49.4 H 49.5 H Plt Count 230 242 Neut % (Auto) 85 H 81 H Lymph % (Auto) 13 16 [place] % (Auto) 2 2 Eos % (Auto) 0 0 Baso % (Auto) 0 0 Neut # (Auto) 4.9 5.3 Lymph # (Auto) 0.8 L 1.1 [place] # (Auto) 0.1 0.1 Eos # (Auto) 0.0 0.0 Baso # (Auto) 0.0 0.0 Immature Gran # (Auto) 0.02 H 0.02 H Absolute Nucleated RBC 0.00 0.00 Immature Gran % 0 0 Nucleated RBC % 0 0 PT 10.8 INR 1.0 APTT 31.6 Puncture Site ABG pH ABG pCO2 ABG pO2 ABG HCO3 ABG O2 Saturation ABG Base Excess FiO2 Sodium 137 137 Potassium 3.7 D 3.6 Chloride 100 101 Carbon Dioxide 21.4 20.3 Anion Gap 16 16 BUN 45 H 46 H Creatinine 4.1 H* D 4.2 H* Estim Creat Clear Calc 15.0 L 14.7 L eGFR 11 L* 11 L* BUN/Creatinine Ratio 11 L 11 L Glucose 205 H 223 H Calculated Osmolality 291 292 Lactic Acid 1.4 Calcium 7.5 L 7.6 L Corrected Calcium 7.9 L 7.9 L Phosphorus Magnesium Total Bilirubin < 0.2 L < 0.2 L AST 46 H 47 H ALT 14 15 Alkaline Phosphatase 92 95 Total Protein 6.5 6.6 Albumin 3.5 3.6 Globulin 3.0 3.0 Albumin/Globulin Ratio 1.2 1.2 Procalcitonin 1.68 H Ur Collection Type Urine Color Urine Clarity Urine pH Ur Specific [place] Urine Protein Urine Glucose (UA) Urine Ketones Urine Blood Urine Nitrite Urine Bilirubin Urine Urobilinogen (Auto) Ur Leukocyte Esterase Urine RBC Urine WBC Ur Squamous Epith Cells Urine Bacteria Urine Yeast (Budding) Ur Random Creatinine U Random Total Protein Ur Random Sodium Ur Random Potassium Ur Random Chloride Ur Random Urea Nitrogn RSV Rapid Negative 04/06/24 04/07/24 21:39 05:05 WBC 6.1 RBC 2.92 L Hgb 8.3 L Hct 25.4 L MCV 87 MCH 28.4 MCHC 32.7 RDW Std Deviation 51.5 H Plt Count 230 Neut % (Auto) 82 H Lymph % (Auto) 16 [place] % (Auto) 2 Eos % (Auto) 0 Baso % (Auto) 0 Neut # (Auto) 5.0 Lymph # (Auto) 1.0 [place] # (Auto) 0.1 Eos # (Auto) 0.0 Baso # (Auto) 0.0 Immature Gran # (Auto) 0.02 H Absolute Nucleated RBC 0.00 Immature Gran % 0 Nucleated RBC % 0 PT INR APTT Puncture Site ABG pH ABG pCO2 ABG pO2 ABG HCO3 ABG O2 Saturation ABG Base Excess FiO2 Sodium 138 Potassium 3.9 Chloride 102 Carbon Dioxide 21.1 Anion Gap 15 BUN 52 H Creatinine 4.9 H* D Estim Creat Clear Calc 12.6 L eGFR 9 L* BUN/Creatinine Ratio 11 L Glucose 279 H D Calculated Osmolality 299 H Lactic Acid Calcium 7.6 L Corrected Calcium 8.1 L Phosphorus 6.0 H Magnesium 1.8 Total Bilirubin 0.2 L AST 57 H ALT 15 Alkaline Phosphatase 86 Total Protein 6.2 Albumin 3.4 Globulin 2.8 Albumin/Globulin Ratio 1.2 Procalcitonin Ur Collection Type Catheter Urine Color Yellow Urine Clarity Turbid A Urine pH 6.0 Ur Specific [place] 1.020 Urine Protein 3+ A Urine Glucose (UA) 1+ A Urine Ketones 1+ A Urine Blood 3+ A Urine Nitrite Negative Urine Bilirubin Negative Urine Urobilinogen (Auto) Negative Ur Leukocyte Esterase Negative Urine RBC 197 H Urine WBC 24 H Ur Squamous Epith Cells 3 Urine Bacteria Rare Urine Yeast (Budding) Present A Ur Random Creatinine U Random Total Protein Ur Random Sodium Ur Random Potassium Ur Random Chloride Ur Random Urea Nitrogn RSV Rapid ABG Interpretation ABG results: 04/05/24 04/06/24 04/06/24 13:11 05:17 13:37 ABG pH 7.23 L 7.23 L ABG pCO2 39 31 L ABG pO2 54 L* 70 L ABG HCO3 16 L 13 L ABG O2 Saturation 86 L 92 ABG Base Excess -11 L -13 L VBG pH 7.23 L VBG pCO2 34 L VBG pO2 35 VBG Base Excess -13 L 04/06/24 16:56 ABG pH 7.42 D ABG pCO2 35 ABG pO2 69 L ABG HCO3 23 ABG O2 Saturation 94 ABG Base Excess -2 VBG pH VBG pCO2 VBG pO2 VBG Base Excess Quality Measures Quality Measures VTE prophylaxis Advance care planning discussed with:: child and other (Grand daughter) Assessment & Plan Assessment Current Active Medications: Generic Name Dose Route Start Last Admin Trade Name Freq PRN Reason Stop Dose Admin Acetaminophen 650 mg 04/05/24 23:06 Acetaminophen 325 Mg Tablet PO 05/05/24 23:05 Q6H PRN PAIN SCALE 1-3 (mild Acetaminophen 650 mg 04/05/24 23:06 Acetaminophen 325 Mg Tablet PO 05/05/24 23:05 Q6H PRN Fever >100 Hydrocodone Bitart/Acetaminophen 1 tab 04/05/24 23:06 Hydrocodone/Apap 10/325 Tab PO 04/10/24 23:05 Q4HR PRN PAIN SCALE 7-10 (Severe Albuterol/Ipratropium 3 ml 04/06/24 01:00 04/07/24 07:05 Albuterol/Ipratropium (Duoneb) Rt Princess 3 Ml Nebu INH 05/06/24 00:59 3 ml Q6HRRT DELMY Administration Aspirin 81 mg 04/06/24 09:00 04/06/24 15:41 Aspirin Ec 81 Mg Tabec PO 05/06/24 08:59 Not Given QDAY DELMY Aspirin 300 mg 04/06/24 12:15 04/06/24 12:43 Aspirin 300 Mg Supp WI 05/06/24 12:14 300 mg QDAY DELMY Administration Atorvastatin Calcium 80 mg 04/06/24 21:00 04/06/24 20:14 Atorvastatin Calcium 20 Mg Tablet PO 05/06/24 20:59 Not Given HS DELMY Calcium Carbonate 600 mg 04/06/24 14:45 04/06/24 20:14 Calcium Carbonate 600 Mg Tablet PO 05/06/24 14:44 Not Given BID DELMY Heparin Sodium (Porcine) 3,300 unit 04/06/24 15:03 04/06/24 16:22 Heparin Sod Inj 1000 Unit/Ml Vial 10 Ml INDWELLCAT 04/20/24 15:02 3,300 unit PRN PRN Administration DIALYSIS Albumin Human 25 gm in 100 mls @ 100 mls/min 04/06/24 08:27 Albuminar-25 Ivpb IV PRN PRN DIALYSIS Cefepime HCl 2 gm/ Sodium 50 mls @ 100 mls/hr 04/06/24 18:46 04/06/24 20:50 Chloride IV 04/13/24 18:45 Infused Q12HR DELMY Infusion Doxycycline Hyclate 100 mg/ 100 mls @ 100 mls/hr 04/06/24 21:00 04/06/24 22:04 Sodium Chloride IV 04/13/24 20:59 Infused BID DELMY Infusion Acetaminophen 1,000 mg in 100 mls @ 250 mls/hr 04/07/24 08:01 Ofirmev Inj IV 04/08/24 00:23 Q6HR DELMY Influenza Virus Vaccine Quadrival 0.5 ml 04/07/24 12:00 Influenza Virus Quadrivalent 0.5 Ml Syringe IMi 04/07/24 12:01 .ONCE ONE Insulin Glargine 6 unit 04/06/24 12:15 04/06/24 12:31 Insulin Glargine (Lantus) 5 Unit/0.05 Ml (Per 5 Units) SC 05/06/24 12:14 6 unit QDAY DELMY Administration Labetalol HCl 10 mg 04/05/24 23:55 Labetalol Inj 5 Mg/Ml Vial 20 Ml IVP 05/05/24 23:54 X1 PRN BP >220/110 Lidocaine HCl 9 ml 04/06/24 11:00 Lidocaine Inj Pf 1% 5 Ml Vial INFL X1 PRN LOCAL ANESTHESIA Protocol Ondansetron HCl 4 mg 04/05/24 23:06 Ondansetron Inj 2 Mg/Ml Inj 2 Ml IV 05/05/24 23:05 Q6H PRN NAUSEA OR VOMITING Protocol Oxycodone/Acetaminophen 1 tab 04/05/24 23:06 Oxycodone/Apap 5/325 Tablet PO 04/10/24 23:05 Q6H PRN PAIN SCALE 4-6 (Moderate Pantoprazole Sodium 40 mg 04/06/24 09:00 04/06/24 09:01 Pantoprazole Inj 40 Mg Vial IVP 05/06/24 08:59 40 mg QDAY DELMY Administration Plan The patient is a 64-year-old female with significant past medical history of 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 Stroke alert was called, and underwent stroke workup. tPA not given due to out of window. On further interviewing, she reported that she has been taking some penicillin that was brought from [place] of long time ago. She also took Motrin x 2 in last 2 days. She admitted having fever, denied any chills, lightheadedness, chest pain, and any flank pain. Nephrology consultation was done for further management of ANA LAURA in CKD stage IIIa. #ANA LAURA in CKD stage III A Secondary to hypertensive nephropathy and diabetes nephropathy #Renal tubular acidosis type IV, improved Likely multifactorial secondary to ATN in the setting of severe respiratory infection, complicated by ibuprofen x2 use Patient's baseline creatinine is 1.6, and GFR is 56. On admission, creatinine 5.9 and GFR 7. On admission ABG significant for acidemia with pH 7.23, pCO2 39, pO2 70. Chemistry panel revealed sodium 133, mild hyperkalemia, bicarb 15.1. ABG significant for pH 7.42 revealing improvement in acidemia, BUN 52, creatinine 4.9, EGFR 9, calcium 8.1, phosphorus 6.0. Urine electrolytes with creatinine 113, total protein 598, sodium 42 (>40 suggestive of ATN), potassium 33, chloride 27, and urea nitrogen 302. BUN/CR ratio <20 so less likely prerenal. Renal ultrasound significant for moderate bilateral renal parenchymal eschar formation, bilateral renal cortical thinning with no hydronephrosis. -Patient will undergo hemodialysis session x 1 this morning again, and will require subsequent hemodialysis tomorrow -Stop the offending agent, penicillin which is likely cause of possible ATN -Continue to monitor renal panel #Hypocalcemia 2/2 #Hyperphosphatemia -Improving Secondary to ANA LAURA on CKD -Started on calcium carbonate 600 Mg twice daily -We will get phosphorus level tomorrow morning again after HD as after hemodialysis it significantly improved to 6.0, we will hold on sevelamer. -Continue to monitor renal panel #Hypertensive emergency, resolved Likely secondary to CVA -Continue with permissive hypertension -Awaiting MRI brain #Acute encephalopathy #Stroke rule out #Hx of CVA 2019 #Acute nephrolithiasis #Hx of renal calculi #Acute hypoxemic respiratory failure #Community-acquired pneumonia #GEMMA/OHS on oxygen HS #NSTEMI type II (improving) #HTN, HLD #IDDM type II -Management deferred to primary hospitalist team. Thank you for your opportunity to participate nephrology team in this patient care. The patient's management plan was discussed with my attending physician MD Jose Serrano MD, PGY2 Attending Provider Attestation/Addendum Patient seen and examined with resident physician Dr. Nesbitt. Note reviewed, agree with findings and recommendations. Patient currently seen in telemetry. Currently on BiPAP for hypoxic respiratory failure. Per daughter patient was agitated overnight and was restrained. Due to azotemia, metabolic acidosis decided to proceed with dialysis. Dr. Dias placed dialysis catheter. Next dialysis scheduled for tomorrow patient currently seen on dialysis. Tolerating dialysis without any problems. Hemodialysis for 2.5 hours, 2K, ultrafiltration 1 L, Epogen 6000, no heparin ordered. Plan of care discussed with the dialysis nurse. Please see dialysis flowsheet for further details. Acute renal failure most likely related to ATN question related to antibiotics from [place] versus underlying infection itself with fluctuations in blood pressures. Check serology - r/o PIGN
[2024-04-07] MEDS: HEPARIN SOD INJ 1000 UNIT/ML VIAL 10 ML 3300 UNIT INDWELLCAT (11:16)
[2024-04-07] MEDS: DIAZEPAM INJ 5 MG/ML VIAL 2 ML 2 MG IVP (12:17)
[2024-04-07 12:23] LABS: Base Excess -1 (-3-3); HCO3 24 mEq/L (20-26); Inspired Oxygen, FIO2 21 %; O2 Saturation 94 % (91-98); PCO2 40 mmHg (32.0-48.0); PO2 79 mmHg (83-108); pH, Arterial 7.39 (7.35-7.45)
[2024-04-07] MEDS: PANTOPRAZOLE INJ 40 MG VIAL IVP (12:23)
[2024-04-07] MEDS: DOXYCYCLINE INJ 100 MG in SODIUM CHLORIDE 0.9% (P) 100 ML IV ×2 (12:24→20:38)
[2024-04-07] MEDS: ASPIRIN 300 MG SUPP PR (12:24)
[2024-04-07 12:28] LABS: Allen Test Not Performed; Puncture Site Site Not Noted
--- NOTE | 2024-04-07 12:28 | PC.SS ---
SS follow up note; Patient was pending an MRI.
[2024-04-07 12:45] LABS: Alanine Aminotransferase 16 U/L (10-49); Albumin, Serum 3.6 gm/dL (3.4-4.8); Albumin/Globulin Ratio 1.1 (1.2-2.2); Alkaline Phosphatase 95 U/L (46-116); Anion Gap 14 (7-16); Aspartate Amino Transferase 73 U/L (0-34); BUN/Creatinine Ratio 10 Ratio (12-20); Bilirubin,Total 0.3 mg/dL (0.3-1.2); Blood Urea Nitrogen 31 mg/dL (9-23); Calcium 7.8 mg/dL (8.3-10.6); Calcium (Corrected) 8.1 mg/dL (8.5-10.1); Carbon Dioxide 23.7 mMol/L (20.0-31.0); Chloride 100 mMol/L (98-107); Creatinine (Component) 3.2 mg/dL (0.6-1.3); Globulin 3.3 gm/dL (2.3-3.5); Glucose 228 mg/dL (74-106); Magnesium 1.6 mg/dL (1.6-2.6); Osmolality,Calculated 289 (275-295); Phosphorous 3.9 mg/dL (2.4-5.1); Potassium 3.8 mMol/L (3.4-5.1); Sodium 138 mMol/L (136-145); Total Protein 6.9 gm/dL (5.7-8.2); eGFR 15 See Note
[2024-04-07] MEDS: ACETAMINOPHEN IVPB 1,000 MG/100 ML VIAL 250 MG IV ×3 (13:00→23:49)
[2024-04-07] MEDS: CEFEPIME INJ 2 GM in SODIUM CHLORIDE 0.9% 50 ML IV (13:02)
[2024-04-07] MEDS: INSULIN LISPRO (AdmeLOG) 1 UNIT/0.01 ML UNIT SC ×2 (13:10→18:40)
[2024-04-07] MEDS: CALCIUM GLUC/NS 1000MG IVPB 1,000 MG/50 ML BAG 50 MG IV (13:21)
--- NOTE | 2024-04-07 14:37 | XR_ITS ---
Examination: AP chest single view TECHNIQUE: AP portable semiupright chest single view Exam date and time: April 07, 2024 at 1453 hours Comparison April 06, 2024 INDICATIONS: Renal failure, shortness of breath this week. FINDINGS: Prominent CHF Right internal jugular dialysis catheter tips SVC Significantly enlarged cardiac contour IMPRESSION: Prominent CHF Consider superimposed bilateral pneumonia
[2024-04-07] MEDS: Magnesium Sulfate 4 GM Ivpb 4 GM/50 ML BAG IV (14:39)
[2024-04-07 14:50] LABS: Cocci Serology, IgM Negative (Negative)
--- NOTE | 2024-04-07 15:15 | XR_ITS ---
Examination: CT brain head without contrast. 2-D sagittal coronal reconstructions Date and time of exam:April 07, 2024 1710 hours INDICATIONS: Altered mental status onset today COMPARISON: April 05, 2024 CTDI: vol (mGy):13.1 DLP: (mGycm):2651 Technique: Multiple CT axial sections of the brain have been obtained, 5 mm slice thickness. Contrast has not been administered. 2-D sagittal, coronal reconstructions have been obtained Low dose protocols were performed. One or more of the following dose reduction techniques were used; automated exposure control, adjustment of the mA and/or KV according to patient size, use of iterative reconstruction technique. Findings: Patient motion significantly degrades scan image quality No gross hemorrhage or mass effect Cranial vault grossly intact IMPRESSION: Patient motion significantly degrades scan image quality No gross hemorrhage or mass effect
--- NOTE | 2024-04-07 16:35 | ESPR_ITS ---
<Statement entered by Madiha Alejandro MD - 04/08/24 07:25> I discussed with and supervised my co-resident involved in the care of this patient. I agree with the assessment and plan as documented above. Patient seen and examined at bedside. Patient remains altered, not following commands. Had 2nd session dialysis today, followed by rapid response (see rapid response note). Has myoclonic twitches, electrolytes checked. Patient off BIPAP as ABG is ok, CPAP at night for GEMMA. Unclear etiology of acute encephalopathy, possible infectious etiology? Will continue IV antibiotics and follow up with neurology for impression, and MRI. Madiha Alejandro MD PGY-3 Documentation for date of: 04/07/24 Subjective Subjective Interval history: Patient remained confused overnight. They were not able to wean her off BiPAP and had to place her in restraints as she continue to try to take the mask off. Rapid response was called on 04/06 around 7pm her for sepsis and antibiotics were changed. Last night the night team was called to bedside and ordered a chest x-ray which shows edema and vascular congestion ordered a one-time dose of Lasix 40 mg. This morning at around 8 AM patient spiked a fever of 101 and was given 1000 mg of IV Tylenol. Patient received her second course of HD today. Her mentation remains unchanged. After dialysis rapid response was called for patient as she was twitching. A second rapid response was called for brief episode of apnea after being given lorazepam. (See rapid response note for more detail.) In the afternoon we were successfully able to wean her from BiPAP to high flow. Exam Vital Signs Temp Pulse Resp BP Pulse Ox O2 Del Method O2 Flow Rate 99.5 F 90 20 135/67 H 93 L BiPAP 30 04/07/24 12:00 04/07/24 14:46 04/07/24 14:46 04/07/24 12:00 04/07/24 14:46 04/07/24 12:00 04/07/24 14:46 FiO2 50 04/07/24 14:46 Narrative Exam Constitutional: Altered, obese Head: Normocephalic/Atraumatic Eyes: PERRL , no conjunctival injection , symmetrical lids. ENMT: Moist Mucous Membranes CVS: RRR, S1 and S2 present, no murmurs, rubs or gallops . RESP: CTAB, mild increased work of breathing, no rales, rhonchi or wheezing, on BiPAP GI: Soft, distended, nontender throughout. MSK: No trauma or deformities or masses. Skin: Warm to touch, Dry. Neuro: GCS 11 (eyes 3, verbal 1, motor 5) moves all limbs spontaneously Objective Labs 04/09/24 04:25 04/09/24 14:51 Labs: Laboratory Results - last 24 hr 04/06/24 04/06/24 04/06/24 16:56 17:15 18:00 WBC 5.8 RBC 3.03 L Hgb 8.5 L Hct 25.7 L MCV 85 MCH 28.1 MCHC 33.1 RDW Std Deviation 49.4 H Plt Count 230 Neut % (Auto) 85 H Lymph % (Auto) 13 Scurry % (Auto) 2 Eos % (Auto) 0 Baso % (Auto) 0 Neut # (Auto) 4.9 Lymph # (Auto) 0.8 L Scurry # (Auto) 0.1 Eos # (Auto) 0.0 Baso # (Auto) 0.0 Immature Gran # (Auto) 0.02 H Absolute Nucleated RBC 0.00 Immature Gran % 0 Nucleated RBC % 0 PT INR APTT Puncture Site Right Radial ABG pH 7.42 D ABG pCO2 35 ABG pO2 69 L ABG HCO3 23 ABG O2 Saturation 94 ABG Base Excess -2 FiO2 40 Sodium 137 Potassium 3.7 D Chloride 100 Carbon Dioxide 21.4 Anion Gap 16 BUN 45 H Creatinine 4.1 H* D Estim Creat Clear Calc 15.0 L eGFR 11 L* BUN/Creatinine Ratio 11 L Glucose 205 H Calculated Osmolality 291 Lactic Acid Calcium 7.5 L Corrected Calcium 7.9 L Phosphorus Magnesium Total Bilirubin < 0.2 L AST 46 H ALT 14 Alkaline Phosphatase 92 Total Protein 6.5 Albumin 3.5 Globulin 3.0 Albumin/Globulin Ratio 1.2 Procalcitonin Ur Collection Type Urine Color Urine Clarity Urine pH Ur Specific Anita Urine Protein Urine Glucose (UA) Urine Ketones Urine Blood Urine Nitrite Urine Bilirubin Urine Urobilinogen (Auto) Ur Leukocyte Esterase Urine RBC Urine WBC Ur Squamous Epith Cells Urine Bacteria Urine Yeast (Budding) Ur Random Creatinine 113 U Random Total Protein 598 H Ur Random Sodium 42.0 Ur Random Potassium 33 Ur Random Chloride 27.0 L Ur Random Urea Nitrogn 302.0 L Coccidioides IgM Ab RSV Rapid 04/06/24 04/06/24 04/06/24 18:57 21:35 21:39 WBC 6.5 RBC 3.11 L Hgb 8.8 L Hct 26.4 L MCV 85 MCH 28.3 MCHC 33.3 RDW Std Deviation 49.5 H Plt Count 242 Neut % (Auto) 81 H Lymph % (Auto) 16 Scurry % (Auto) 2 Eos % (Auto) 0 Baso % (Auto) 0 Neut # (Auto) 5.3 Lymph # (Auto) 1.1 Scurry # (Auto) 0.1 Eos # (Auto) 0.0 Baso # (Auto) 0.0 Immature Gran # (Auto) 0.02 H Absolute Nucleated RBC 0.00 Immature Gran % 0 Nucleated RBC % 0 PT 10.8 INR 1.0 APTT 31.6 Puncture Site ABG pH ABG pCO2 ABG pO2 ABG HCO3 ABG O2 Saturation ABG Base Excess FiO2 Sodium 137 Potassium 3.6 Chloride 101 Carbon Dioxide 20.3 Anion Gap 16 BUN 46 H Creatinine 4.2 H* Estim Creat Clear Calc 14.7 L eGFR 11 L* BUN/Creatinine Ratio 11 L Glucose 223 H Calculated Osmolality 292 Lactic Acid 1.4 Calcium 7.6 L Corrected Calcium 7.9 L Phosphorus Magnesium Total Bilirubin < 0.2 L AST 47 H ALT 15 Alkaline Phosphatase 95 Total Protein 6.6 Albumin 3.6 Globulin 3.0 Albumin/Globulin Ratio 1.2 Procalcitonin 1.68 H Ur Collection Type Catheter Urine Color Yellow Urine Clarity Turbid A Urine pH 6.0 Ur Specific Anita 1.020 Urine Protein 3+ A Urine Glucose (UA) 1+ A Urine Ketones 1+ A Urine Blood 3+ A Urine Nitrite Negative Urine Bilirubin Negative Urine Urobilinogen (Auto) Negative Ur Leukocyte Esterase Negative Urine RBC 197 H Urine WBC 24 H Ur Squamous Epith Cells 3 Urine Bacteria Rare Urine Yeast (Budding) Present A Ur Random Creatinine U Random Total Protein Ur Random Sodium Ur Random Potassium Ur Random Chloride Ur Random Urea Nitrogn Coccidioides IgM Ab Negative RSV Rapid Negative 04/07/24 04/07/24 04/07/24 05:05 12:14 12:15 WBC 6.1 RBC 2.92 L Hgb 8.3 L Hct 25.4 L MCV 87 MCH 28.4 MCHC 32.7 RDW Std Deviation 51.5 H Plt Count 230 Neut % (Auto) 82 H Lymph % (Auto) 16 Scurry % (Auto) 2 Eos % (Auto) 0 Baso % (Auto) 0 Neut # (Auto) 5.0 Lymph # (Auto) 1.0 Scurry # (Auto) 0.1 Eos # (Auto) 0.0 Baso # (Auto) 0.0 Immature Gran # (Auto) 0.02 H Absolute Nucleated RBC 0.00 Immature Gran % 0 Nucleated RBC % 0 PT INR APTT Puncture Site Site Not Noted ABG pH 7.39 ABG pCO2 40 ABG pO2 79 L ABG HCO3 24 ABG O2 Saturation 94 ABG Base Excess -1 FiO2 21 Sodium 138 138 Potassium 3.9 3.8 Chloride 102 100 Carbon Dioxide 21.1 23.7 Anion Gap 15 14 BUN 52 H 31 H Creatinine 4.9 H* D 3.2 H D Estim Creat Clear Calc 12.6 L 19.0 L eGFR 9 L* 15 L BUN/Creatinine Ratio 11 L 10 L Glucose 279 H D 228 H D Calculated Osmolality 299 H 289 Lactic Acid Calcium 7.6 L 7.8 L Corrected Calcium 8.1 L 8.1 L Phosphorus 6.0 H 3.9 Magnesium 1.8 1.6 Total Bilirubin 0.2 L 0.3 AST 57 H 73 H ALT 15 16 Alkaline Phosphatase 86 95 Total Protein 6.2 6.9 Albumin 3.4 3.6 Globulin 2.8 3.3 Albumin/Globulin Ratio 1.2 1.1 L Procalcitonin Ur Collection Type Urine Color Urine Clarity Urine pH Ur Specific Anita Urine Protein Urine Glucose (UA) Urine Ketones Urine Blood Urine Nitrite Urine Bilirubin Urine Urobilinogen (Auto) Ur Leukocyte Esterase Urine RBC Urine WBC Ur Squamous Epith Cells Urine Bacteria Urine Yeast (Budding) Ur Random Creatinine U Random Total Protein Ur Random Sodium Ur Random Potassium Ur Random Chloride Ur Random Urea Nitrogn Coccidioides IgM Ab RSV Rapid ABG Interpretation ABG results: 04/05/24 04/06/24 04/06/24 13:11 05:17 13:37 ABG pH 7.23 L 7.23 L ABG pCO2 39 31 L ABG pO2 54 L* 70 L ABG HCO3 16 L 13 L ABG O2 Saturation 86 L 92 ABG Base Excess -11 L -13 L VBG pH 7.23 L VBG pCO2 34 L VBG pO2 35 VBG Base Excess -13 L 04/06/24 04/07/24 16:56 12:14 ABG pH 7.42 D 7.39 ABG pCO2 35 40 ABG pO2 69 L 79 L ABG HCO3 23 24 ABG O2 Saturation 94 94 ABG Base Excess -2 -1 VBG pH VBG pCO2 VBG pO2 VBG Base Excess Quality Measures Quality Measures VTE prophylaxis Advance care planning discussed with:: other Assessment & Plan Assessment Current Active Medications: Generic Name Dose Route Start Last Admin Trade Name Freq PRN Reason Stop Dose Admin Acetaminophen 650 mg 04/05/24 23:06 Acetaminophen 325 Mg Tablet PO 05/05/24 23:05 Q6H PRN PAIN SCALE 1-3 (mild Acetaminophen 650 mg 04/05/24 23:06 Acetaminophen 325 Mg Tablet PO 05/05/24 23:05 Q6H PRN Fever >100 Hydrocodone Bitart/Acetaminophen 1 tab 04/05/24 23:06 Hydrocodone/Apap 10/325 Tab PO 04/10/24 23:05 Q4HR PRN PAIN SCALE 7-10 (Severe Albuterol/Ipratropium 3 ml 04/06/24 01:00 04/07/24 14:45 Albuterol/Ipratropium (Duoneb) Rt Princess 3 Ml Nebu INH 05/06/24 00:59 3 ml Q6HRRT DELMY Administration Aspirin 81 mg 04/06/24 09:00 04/06/24 15:41 Aspirin Ec 81 Mg Tabec PO 05/06/24 08:59 Not Given QDAY DELMY Aspirin 300 mg 04/06/24 12:15 04/07/24 12:24 Aspirin 300 Mg Supp MA 05/06/24 12:14 300 mg QDAY DELMY Administration Atorvastatin Calcium 80 mg 04/06/24 21:00 04/06/24 20:14 Atorvastatin Calcium 20 Mg Tablet PO 05/06/24 20:59 Not Given HS DELMY Calcium Carbonate 600 mg 04/06/24 14:45 04/07/24 13:05 Calcium Carbonate 600 Mg Tablet PO 05/06/24 14:44 Not Given BID DELMY Dextrose 25 ml 04/07/24 10:52 Dextrose 50%-Water Inj 50 Ml Syringe IV 05/07/24 10:51 Q15MIN PRN BG 50-70 responsive npo pt Dextrose 50 ml 04/07/24 10:52 Dextrose 50%-Water Inj 50 Ml Syringe IV 05/07/24 10:51 Q15MIN PRN BG <50 OR BG <70 & pt unresponsive Glucagon 1 mg 04/07/24 10:52 Glucagon Inj 1 Mg Vial IM Q15MIN PRN BG <70, and no IV access Heparin Sodium (Porcine) 3,300 unit 04/06/24 15:03 04/07/24 11:16 Heparin Sod Inj 1000 Unit/Ml Vial 10 Ml INDWELLCAT 04/20/24 15:02 3,300 unit PRN PRN Administration DIALYSIS Albumin Human 25 gm in 100 mls @ 100 mls/min 04/06/24 08:27 Albuminar-25 Ivpb IV PRN PRN DIALYSIS Doxycycline Hyclate 100 mg/ 100 mls @ 100 mls/hr 04/06/24 21:00 04/07/24 12:24 Sodium Chloride IV 04/13/24 20:59 100 mls/hr BID DELMY Administration Acetaminophen 1,000 mg in 100 mls @ 250 mls/hr 04/07/24 08:01 04/07/24 16:08 Ofirmev Inj IV 04/08/24 00:23 Not Given Q6HR DELMY Cefepime HCl 2 gm/ Sodium 50 mls @ 100 mls/hr 04/08/24 09:00 Chloride IV 04/15/24 08:59 QDAY DELMY Magnesium Sulfate 4 gm in 50 mls @ 12.5 mls/hr 04/07/24 13:53 04/07/24 14:39 Magnesium Sulfate Ivpb IV 04/07/24 17:52 12.5 mls/hr X1 ONE Administration Insulin Glargine 6 unit 04/08/24 09:00 Insulin Glargine (Lantus) 5 Unit/0.05 Ml (Per 5 Units) SC 05/08/24 08:59 QAM [facility] Insulin Human Lispro 0 unit 04/07/24 12:00 04/07/24 13:10 Insulin Lispro (Admelog) 1 Unit/0.01 Ml Unit SC 05/07/24 11:59 2 unit Q6HR DELMY Administration Protocol Labetalol HCl 10 mg 04/05/24 23:55 Labetalol Inj 5 Mg/Ml Vial 20 Ml IVP 05/05/24 23:54 X1 PRN BP >220/110 Lidocaine HCl 9 ml 04/06/24 11:00 Lidocaine Inj Pf 1% 5 Ml Vial INFL X1 PRN LOCAL ANESTHESIA Protocol Ondansetron HCl 4 mg 04/05/24 23:06 Ondansetron Inj 2 Mg/Ml Inj 2 Ml IV 05/05/24 23:05 Q6H PRN NAUSEA OR VOMITING Protocol Oxycodone/Acetaminophen 1 tab 04/05/24 23:06 Oxycodone/Apap 5/325 Tablet PO 04/10/24 23:05 Q6H PRN PAIN SCALE 4-6 (Moderate Pantoprazole Sodium 40 mg 04/06/24 09:00 04/07/24 12:23 Pantoprazole Inj 40 Mg Vial IVP 05/06/24 08:59 40 mg QDAY DELMY Administration Plan In summary: 64-year-old female with PMHx of CVA 2018, residual left-sided deficit, nephrolithiasis, HTN, HLD, chronic anemia and T2DM presenting with strokelike symptoms. Admitted for stroke r/o, ANA LAURA and pneumonia. Acute encephalopathy ANA LAURA on possible CKD stage IIIb Hx of renal calculi CR 5.4 (baseline 1.6), GFR 8% (baseline 36). Reports poor oral intake over the last week in the setting of illness. Has 10 mm and 14 mm left renal calculi on CT, however no reported obstructive uropathy or hydronephrosis. Normal CT suggest cystitis, less likely she has UTI, asymptomatic, afebrile, no leukocytosis, UA does not suggest this. Received 1.0 L bolus in ED, lasix once admitted, repeat CMP showed no improvement in CR. ?Urology consulted. Does not think this is a obstruction from renal stone. ? Nephrology consulted: ?Status post 2 sessions of hemodialysis (/ and /) with improvement of labs. Mentation remains unchanged. Per note from this morning patient to receive another session of dialysis tomorrow. -Still recommending calcium carbonate 600 Mg twice daily ?Patient remains NPO. Unable to follow commands. Will place NG tube tomorrow for feeds if still unable to eat. ?Neurology consulted for encephalopathy. Requested repeat CT scan of the head which is negative for acute change. Will follow-up later today. ?Pending urine culture Acute hypoxemic respiratory failure Community-acquired pneumonia GEMMA/OHS on oxygen HS Sepsis Reports 1 week of cough associated with worsening shortness of breath over the last few days. Radiography suggested pneumonia. Previously had sleep study, prescribed CPAP but did not tolerate Was successfully placed on high flow today. ?Status post CEFTRIAXONE (2/2), AZITHROMYCIN (2/2) ?Antibiotics switched yesterday after rapid response for sepsis. Now on cefepime 2 g twice daily (2?present), doxycycline 100 mg twice daily (23?present. ?DuoNebs q.6h ?Pending sputum cultures ?Pending blood culture ?Pending urine culture Stroke rule out Hx of CVA 2019 Presenting with acute slurred speech and difficulty finding sentences that started 2 days ago. Had a stroke in 2018 with residual left-sided weakness, currently needs assistance with ambulation, uses walker or siderails. Head CT was negative. Per teleneuro evaluation, most likely she has metabolic encephalopathy over CVA. Recommended MRI brain without contrast, carotid duplex, ASPIRIN therapy, no antiplatelets. Currently unable to do contrast study due to ANA LAURA. Echo with negative bubble study. EF of 55 to 60%. Carotid duplex: Unable to visualize the right due to lack of patient cooperation, 0 to 10% stenosis of the left internal carotid On my exam today patient is nonverbal. ? LABETALOL 5 mg for BP >180 systolic ? ASPIRIN 300 mg daily MA ? ATORVASTATIN 80 mg?being held, has not passed bedside swallow ? Pending physical therapy evaluation ? Pending in-house neurology recommendations ? Pending MRI?unable to complete, patient unable to stay still ? Consider Holter monitor outpatient (per teleneuro) NSTEMI type II (improving) Likely demand ischemia in settings of dehydration. EKG showed sinus bradycardia, T wave inversions and Q waves in lateral leads. Troponin 1.319 then 1.271 on repeat. Asymptomatic without chest pain or palpitations HTN, HLD ? LABETALOL 5 mg as needed > 180 systolic ? ATORVASTATIN 80 mg daily?being held ? Consider restarting antihypertensives as indicated. IDDM A1c 5.9 ? Continue home glargine 6 units HS ? Continue sliding scale [employer] Diet: NPO pending speech eval DVT prophylaxis: SCD GI prophylaxis: PROTONIX Antibiotics: Cefepime, doxycycline Disposition: Stroke work-up, ANA LAURA, PNA?encephalopathy Patient case was discussed with attending, John FRANCISCO. Raymond Ayala DO, PGY1 Attending Provider Attestation/Addendum Face to face evaluation was performed by me. I have personally seen and examined the patient. I discussed the assessment and plan with the entire medicine team. I reviewed available medical records, imaging studies, laboratory results. I agree with the above subjective data, objective findings, assessment and plan except as corrected by me or noted below Acute encephalopathy, metabolic Acute renal failure on CKD stage 3 requiring HD Hx of renal calculi Acute hypoxic respiratory failure CAP, bacterial ,likely GPC Hypocalcemia - HAD TOOLS ADMINISTRATOR twice, ICU team consulted Dr Bardales evaluated the patient -Given IV Calcium had apnic episode Discussed with family at bedside, they want to transfer patient to [facility] for Urology- Dr Pinto came to bedside, discussed with him as well. Continue with ABXs -HD per nephrology -Os support- ABG done not hypercapnic, try HFNC again * Monitor closely her course, she is high risk for mortality and morbidity. Stroke still needs to be ruled out, she is not stable or cooperative enough for MRI, Neurology on board, rectal asa empirically for now, obtain repeat CT brain meanwhile
[2024-04-07] MEDS: HALOPERIDOL LACT INJ 5 MG/ML VIAL 2.5 MG IV (17:20)
--- NOTE | 2024-04-07 17:38 | PC.CM ---
Addendum entered by Tanisha Marks RN 04/07/24 19:14: Patient was declined due to capacity. Original Note: I received a request to transfer patient for urology services. Dr. Lopez states it is a family request and he is not requesting a transfer. Patient has been seen at [facility] for urology services in the past, and family would like patient to be sent back to [facility]. I reached out to [facility] and I presented patient. They stated they are extremely busy with acute transfer requests, but I could send a face sheet and they will process the request.
[2024-04-07] MEDS: VALPROATE SOD INJ 500 MG in SODIUM CHLORIDE 0.9% 50 ML 110 MG IV (18:47)
--- NOTE | 2024-04-07 19:06 | ESCONSULT_ITS ---
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 Upon arrival to the ED, stroke alert was called. CT head negative, however patient was outside of TNK window. MRI brain recommended but given that patient continues to have altered mental status and cannot follow commands in addition to requiring HFNC, will not be able to obtain. Echo obtained on 04/05, negative bubble study and EF 55 to 60%. Carotid Doppler was poor study due to lack of patient cooperation. Labs obtained in ED showed creatinine of 5.4, which is significantly elevated from baseline of 1.0. Thus, TDC was placed and patient has since received 2 dialysis sessions (04/06, 04/07), however has not had any improvement in her mental status. Throughout hospital course, patient has had 3 rapid responses. On 04/06 rapid response for fever of 103 ?F, 04/07 for episode of twitching on right side of face, and again on 04/07 for episode of apnea for few seconds after dose of lorazepam. ICU was consulted given that patient has had increased oxygen requirements and altered mental status and evaluated if patient will require closer monitoring to protect her airways. cc:: cc: Everton Lopez MD Review of Systems Review of Systems ROS Unobtainable: unobtainable due to mental status Exam Vital Signs Temp Pulse Resp BP Pulse Ox O2 Del Method O2 Flow Rate 98.6 F 93 22 H 142/84 H 93 L BiPAP 30 04/07/24 16:00 04/07/24 16:04/07/24 16:04/07/24 16:04/07/24 16:00 04/07/24 16:00 04/07/24 16:00 FiO2 50 04/07/24 16:00 Narrative Exam General: obese, not able to follow commands, spontaneous arm movement HEENT: NC/AT, mucous membranes moist Cardiovascular: regular rate and rhythm, S1/S2 present, no murmurs appreciated Pulmonary: bibasilar crackles appreciated, coarse lung sounds when coughing Abdominal: obese/distended, firm, no guarding Musculoskeletal: no peripheral edema, peripheral pulses 2+ Skin: R open wound on right neck above medial clavicle with overlying tagiderm Neuro: unable to follow commands, GCS 10 Results Labs 04/12/24 04:23 04/12/24 04:23 Labs: Short CBC 04/06/24 04/07/24 Range/Units 18:57 05:05 WBC 6.5 6.1 (3.6-11.0) Thou/mm3 Hgb 8.8 L 8.3 L (12.0-16.0) g/dL Hct 26.4 L 25.4 L (36.0-46.0) % Plt Count 242 230 (140-440) Thou/mm3 BMP 04/06/24 04/07/24 04/07/24 18:57 05:05 12:15 Sodium 137 138 138 Potassium 3.6 3.9 3.8 Chloride 101 102 100 Carbon Dioxide 20.3 21.1 23.7 BUN 46 H 52 H 31 H Creatinine 4.2 H* 4.9 H* D 3.2 H D Glucose 223 H 279 H D 228 H D Calcium 7.6 L 7.6 L 7.8 L Liver Function 04/06/24 04/07/24 04/07/24 Range/Units 18:57 05:05 12:15 Total Bilirubin < 0.2 L 0.2 L 0.3 (0.3-1.2) mg/dL AST 47 H 57 H 73 H (0-34) U/L ALT 15 15 16 (10-49) U/L Alkaline Phosphatase 95 86 95 (46-116) U/L Albumin 3.6 3.4 3.6 (3.4-4.8) gm/dL Urine 04/06/24 Range/Units 21:39 Urine Color Yellow (Lt Yel-Yel) Urine Clarity Turbid A (Clear/Hazy) Urine pH 6.0 (5.0-7.0) Ur Specific [place] 1.020 (1.001-1.035) Urine Protein 3+ A (Neg - Trace) Urine Glucose (UA) 1+ A (Negative) ABG Interpretation ABG results: 04/05/24 04/06/24 04/06/24 13:11 05:17 13:37 ABG pH 7.23 L 7.23 L ABG pCO2 39 31 L ABG pO2 54 L* 70 L ABG HCO3 16 L 13 L ABG O2 Saturation 86 L 92 ABG Base Excess -11 L -13 L VBG pH 7.23 L VBG pCO2 34 L VBG pO2 35 VBG Base Excess -13 L 04/06/24 04/07/24 16:56 12:14 ABG pH 7.42 D 7.39 ABG pCO2 35 40 ABG pO2 69 L 79 L ABG HCO3 23 24 ABG O2 Saturation 94 94 ABG Base Excess -2 -1 VBG pH VBG pCO2 VBG pO2 VBG Base Excess Quality Measures Quality Measures VTE prophylaxis Advance care planning discussed with:: child Medications Home Medications and Allergies Home Medications ?Medication ?Instructions ?Recorded ?Confirmed ?Type omeprazole 20 mg capsule,delayed 20 mg PO QDAY GERD ## 0 06/06/15 03/20/24 History release (Prilosec) insulin glargine 100 unit/mL (3 10 unit subcut QDAY 03/20/24 History mL) subcutaneous pen (Basaglar KwikPen U-100 Insulin) insulin lispro 100 unit/mL 24 unit subcut TID 01/07/20 03/20/24 History subcutaneous pen (Admelog SoloStar U-100 Insulin lispro) acetaminophen 325 mg capsule 650 mg PO TID PRN Pain 04/07/24 History benazepril 40 mg tablet 40 mg PO DAILY 12/26/2106/26 History ergocalciferol (vitamin D2) 1,250 1,250 mcg PO QWEEK 1 03/20/24 History mcg (50,000 unit) capsule linaclotide 72 mcg capsule 72 mcg PO QDAY 12/26/21 History (Linzess) metformin 1,000 mg tablet 1,000 mg PO BID 12/26/2106/26 History rosuvastatin 40 mg tablet 40 mg PO QDAY 12/26/2103/20 History amlodipine 10 mg tablet 10 mg PO QDAY 04/07/2404/07 History furosemide 20 mg tablet 20 mg PO BID 04/07/24 History metoprolol tartrate 100 mg tablet 100 mg PO BID 04/07/24 History Allergies Allergy/AdvReac Type Severity Reaction Status Date / Time No Known Allergies Allergy Verified 03/20/24 15:08 Visit Medications Acetaminophen (Acetaminophen 325 Mg Tablet) 650 mg PO Q6H PRN PRN Reason: PAIN SCALE 1-3 (mild Stop: 05/05/24 23:05 Acetaminophen (Acetaminophen 325 Mg Tablet) 650 mg PO Q6H PRN PRN Reason: Fever >100 Stop: 05/05/24 23:05 Hydrocodone Bitart/Acetaminophen (Hydrocodone/Apap 10/325 Tab) 1 tab PO Q4HR PRN PRN Reason: PAIN SCALE 7-10 (Severe Stop: 04/10/24 23:05 Albuterol/Ipratropium (Albuterol/Ipratropium (Duoneb) Rt Prnicess 3 Ml Nebu) 3 ml INH Q6HRRT [facility] Stop: 05/06/24 00:59 Last Admin: 04/07/24 14:45 Dose: 3 ml Aspirin (Aspirin Ec 81 Mg Tabec) 81 mg PO QDAY [facility] Stop: 05/06/24 08:59 Last Admin: 04/06/24 15:41 Dose: Not Given Aspirin (Aspirin 300 Mg Supp) 300 mg IN QDAY [facility] Stop: 05/06/24 12:14 Last Admin: 04/07/24 12:24 Dose: 300 mg Atorvastatin Calcium (Atorvastatin Calcium 20 Mg Tablet) 80 mg PO HS [facility] Stop: 05/06/24 20:59 Last Admin: 04/06/24 20:14 Dose: Not Given Calcium Carbonate (Calcium Carbonate 600 Mg Tablet) 600 mg PO BID [facility] Stop: 05/06/24 14:44 Last Admin: 04/07/24 13:05 Dose: Not Given Dextrose (Dextrose 50%-Water Inj 50 Ml Syringe) 25 ml IV Q15MIN PRN PRN Reason: BG 50-70 responsive npo pt Stop: 05/07/24 10:51 Dextrose (Dextrose 50%-Water Inj 50 Ml Syringe) 50 ml IV Q15MIN PRN PRN Reason: BG <50 OR BG <70 & pt unresponsive Stop: 05/07/24 10:51 Glucagon (Glucagon Inj 1 Mg Vial) 1 mg IM Q15MIN PRN PRN Reason: BG <70, and no IV access Heparin Sodium (Porcine) (Heparin Sod Inj 1000 Unit/Ml Vial 10 Ml) 3,300 unit INDWELLCAT PRN PRN PRN Reason: DIALYSIS Stop: 04/20/24 15:02 Last Admin: 04/07/24 11:16 Dose: 3,300 unit Albumin Human (Albuminar-25 Ivpb) 25 gm in 100 mls @ 100 mls/min IV PRN PRN PRN Reason: DIALYSIS Doxycycline Hyclate 100 mg/ (Sodium Chloride) 100 mls @ 100 mls/hr IV BID [facility] Stop: 04/13/24 20:59 Last Admin: 04/07/24 12:24 Dose: 100 mls/hr Acetaminophen (Ofirmev Inj) 1,000 mg in 100 mls @ 250 mls/hr IV Q6HR [facility] Stop: 04/08/24 00:23 Last Admin: 04/07/24 18:01 Dose: 250 mls/hr Cefepime HCl 2 gm/ Sodium (Chloride) 50 mls @ 100 mls/hr IV QDAY [facility] Stop: 04/15/24 08:59 Valproic Acid 500 mg/ Sodium (Chloride) 55 mls @ 110 mls/hr IV X1 ONE Stop: 04/07/24 19:14 Last Admin: 04/07/24 18:47 Dose: 110 mls/hr Insulin Glargine (Insulin Glargine (Lantus) 5 Unit/0.05 Ml (Per 5 Units)) 6 unit SC QAM [facility] Stop: 05/08/24 08:59 Insulin Human Lispro (Insulin Lispro (Admelog) 1 Unit/0.01 Ml Unit) 0 unit SC Q6HR [facility]; Protocol Stop: 05/07/24 11:59 Last Admin: 04/07/24 18:40 Dose: 2 unit Labetalol HCl (Labetalol Inj 5 Mg/Ml Vial 20 Ml) 10 mg IVP X1 PRN PRN Reason: BP >220/110 Stop: 05/05/24 23:54 Lidocaine HCl (Lidocaine Inj Pf 1% 5 Ml Vial) 9 ml INFL X1 PRN; Protocol PRN Reason: LOCAL ANESTHESIA Ondansetron HCl (Ondansetron Inj 2 Mg/Ml Inj 2 Ml) 4 mg IV Q6H PRN; Protocol PRN Reason: NAUSEA OR VOMITING Stop: 05/05/24 23:05 Oxycodone/Acetaminophen (Oxycodone/Apap 5/325 Tablet) 1 tab PO Q6H PRN PRN Reason: PAIN SCALE 4-6 (Moderate Stop: 04/10/24 23:05 Pantoprazole Sodium (Pantoprazole Inj 40 Mg Vial) 40 mg IVP QDAY DELMY Stop: 05/06/24 08:59 Last Admin: 04/07/24 12:23 Dose: 40 mg Discontinued Medications Acetaminophen (Acetaminophen Supp 650 Mg Supp) 650 mg IN X1 ONE Stop: 04/06/24 18:44 Last Admin: 04/06/24 18:49 Dose: 650 mg Azithromycin (Azithromycin 250 Mg Tablet) 500 mg PO X1 ONE Stop: 04/05/24 17:41 Last Admin: 04/05/24 19:34 Dose: 500 mg Diazepam (Diazepam Inj 5 Mg/Ml Vial 2 Ml) 2 mg IVP X1 ONE Stop: 04/07/24 12:11 Last Admin: 04/07/24 12:17 Dose: 2 mg Furosemide (Furosemide Inj 10 Mg/Ml 4ml Vial) 40 mg IVP X1 ONE Stop: 04/05/24 23:07 Last Admin: 04/05/24 23:45 Dose: 40 mg Furosemide (Furosemide Inj 10 Mg/Ml 4ml Vial) 40 mg IVP X1 ONE Stop: 04/06/24 23:12 Last Admin: 04/06/24 23:25 Dose: 40 mg Haloperidol Lactate (Haloperidol Lact Inj 5 Mg/Ml Vial) 2.5 mg IV X1 ONE Stop: 04/06/24 23:13 Last Admin: 04/06/24 23:24 Dose: 2.5 mg Haloperidol Lactate (Haloperidol Lact Inj 5 Mg/Ml Vial) 2 mg IV X1 ONE Stop: 04/07/24 15:25 Haloperidol Lactate (Haloperidol Lact Inj 5 Mg/Ml Vial) 2.5 mg IV X1 ONE Stop: 04/07/24 15:33 Last Admin: 04/07/24 17:20 Dose: 2.5 mg Heparin Sodium (Beef Lung) (Heparin Sod Lock Syr 100 Unit/Ml) 500 unit INTRACATH X1 ONE Stop: 04/06/24 11:01 Last Admin: 04/06/24 11:00 Dose: 500 unit Heparin Sodium (Porcine) (Heparin Sod Inj 5000 Unit/Ml Vial) 5,000 unit SC Q8HR [facility] Stop: 04/20/24 05:59 Heparin Sodium (Porcine) (Heparin Sod Inj 5000 Unit/Ml Vial 10 Ml) 3,300 unit INTRACATH X1 ONE Stop: 04/06/24 11:27 Last Admin: 04/06/24 11:35 Dose: 3,300 unit Sodium Chloride (Ns) 1,000 mls @ 999 mls/hr IV .Q1H1M ONE Stop: 04/05/24 15:19 Last Infusion: 04/05/24 19:30 Dose: Infused Ceftriaxone Sodium 1,000 mg/ (Sodium Chloride) 50 mls @ 100 mls/hr IV X1 ONE Stop: 04/05/24 14:55 Last Infusion: 04/05/24 16:10 Dose: Infused Sodium Chloride (Ns) 1,000 mls @ 999 mls/hr IV .Q1H1M ONE Stop: 04/05/24 18:37 Last Admin: 04/05/24 19:34 Dose: Not Given Ceftriaxone Sodium/Dextrose (Rocephin/D5w 1gm Iv Premix) 50 mls @ 100 mls/hr IV QDAY DELMY Stop: 04/13/24 08:59 Last Infusion: 04/07/24 05:12 Dose: Infused Azithromycin 250 mg/ Sodium (Chloride) 250 mls @ 250 mls/hr IV HS DELMY Stop: 04/13/24 20:59 Cefepime HCl 2 gm/ Sodium (Chloride) 50 mls @ 100 mls/hr IV Q12HR DELMY Stop: 04/13/24 18:45 Last Admin: 04/07/24 08:50 Dose: Not Given Cefepime HCl 2 gm/ Sodium (Chloride) 50 mls @ 100 mls/hr IV QDAY DELMY Stop: 04/15/24 08:59 Calcium Gluconate/Sodium Chloride (Calcium Gluc/Ns 1000mg Ivpb) 1,000 mg in 50 mls @ 50 mls/hr IV X1 ONE Stop: 04/07/24 13:08 Last Admin: 04/07/24 13:21 Dose: 50 mls/hr Cefepime HCl 2 gm/ Sodium (Chloride) 50 mls @ 100 mls/hr IV Q12HR DELMY Stop: 04/07/24 13:29 Last Admin: 04/07/24 13:02 Dose: 100 mls/hr Magnesium Sulfate (Magnesium Sulfate Ivpb) 4 gm in 50 mls @ 12.5 mls/hr IV X1 ONE Stop: 04/07/24 17:52 Last Admin: 04/07/24 14:39 Dose: 12.5 mls/hr Valproic Acid 500 mg/ Sodium (Chloride) 55 mls @ 110 mls/hr IV X1 ONE Stop: 04/07/24 18:44 Influenza Virus Vaccine Quadrival (Influenza Virus Quadrivalent 0.5 Ml Syringe) 0.5 ml IMi .ONCE ONE Stop: 04/07/24 12:01 Insulin Glargine (Insulin Glargine (Lantus) 5 Unit/0.05 Ml (Per 5 Units)) 6 unit SC QDAY DELMY Stop: 05/06/24 12:14 Last Admin: 04/07/24 08:50 Dose: Not Given Ketorolac Tromethamine (Ketorolac Inj 60 Mg/2 Ml Vial) 30 mg IM X1 ONE Stop: 04/07/24 08:02 Last Admin: 04/07/24 08:40 Dose: Not Given Lorazepam (Lorazepam 2 Mg/Ml Vial) 1 mg IV X1 ONE Stop: 04/07/24 12:01 Last Admin: 04/07/24 13:06 Dose: Not Given Sodium Bicarbonate (Sodium Bicarb Inj 8.4% Syr 50 Ml Syringe) 50 ml IV X1 ONE Stop: 04/06/24 09:01 Last Admin: 04/06/24 09:52 Dose: 50 ml Sodium Chloride (Sodium Chloride Rt 10% 15 Ml Nebu) 5 ml INH X1 ONE Stop: 04/06/24 00:08 Last Admin: 04/06/24 01:59 Dose: Not Given Tuberculin PPD (Tuberculin Ppd Inj 5 Unit/0.1 Ml Dose) 5 unit ID X1 ONE Stop: 04/06/24 07:54 Last Admin: 04/06/24 12:43 Dose: 5 unit Valproic Acid (Valproate Sod Inj 100 Mg/Ml Vial 5 Ml) 500 mg IV X1 ONE Stop: 04/07/24 17:58 Assessment & Plan Plan Sofiya Vogt is a 64-year-old female with a past medical history of 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 Neurological #Acute encephalopathy, secondary to toxic-metabolic etiology vs CVA vs meningitis vs encephalitis Initially presented with focal neurological deficits, including unilateral facial droop and slurred speech. CT head has thus far been negative, including repeat although severely limited due to patient movement. Have not been able to obtain MRI given the patient is not able to follow commands, in addition to increased oxygen requirements so cannot rule out CVA as an etiology. Given that patient mentation has not improved after receiving 2 sessions of hemodialysis, unlikely due to uremia. ABG also did not indicate hypercapnia, therefore also unlikely etiology. ? Neurology consulted Cardiovascular #Elevated troponins, likely NSTEMI type II Downtrended from 1.3 to 1.2, stable Pulmonary #Acute hypoxic respiratory failure secondary to CAP Upon evaluation, patient saturating 89 to 90% on HFNC. ABG showed pH 7.39, pCO2 40, pO2 79. ? HFNC 30 L/min, 50% FiO2 ? Duonebs #Community acquired penumonia CT chest showed bilateral pneumonia ? Cefepie and doxycycline Gastrointestinal #Transaminitis, stable Has received multiple antibiotics Renal #Acute kidney injury, improving on HD Status post placement of TDC and has since had 2 hemodialysis sessions (04/06, 04/07) ? Renally dose medications ? Avoid nephrotoxic agents #Staghorn calculi ? Urology consulted Endocine #Type 2 diabetes mellitus ? SSI ? 6 units glargine Heme #Chronic, normocytic anemia ? Stable Infectious disease #Community acquired pneumonia Dada fever on 04/06, but has been stable since. No leukocytosis. ? See respiratory above ? Follow-up Cocci IgM ? Follow-up cultures ? COVID, RSV, and flu negative Hospital management: Disposition: acute encephalopathy, on IV antibiotics Fluids: none Pressors: none Sedatives: none Diet: NPO Lines: peripheral GI prophylaxis: pantoprazole 40 mg IV CODE STATUS: full code ----- Plan discussed with attending physician Dr. Jeffy Andino MD PGY-1 Internal Medicine Attending Provider Attestation/Addendum pt seen and examined with resident. agree with above. in brief this is a 64y oF admitted with AMS and hypoxic resp failure. She awake but non verbal, disorented and gazing to one side, she is agitated and restrained. On exam she has a GCS of 11. there are crackles on exam of lung loaiza with occasional wheeze, HRRR, pulses palp and no mottling/clubbing appreciated. Pt has a h/o CVA in the past however is able to walk with a walker at baseline per daughter. She is noted to have ANA LAURA that required initiation of HD. Her FiO2 needs were 50% at time of eval and she is hemodynamically stable. At this point in time she is ok to remain on tele. A long discussion was held with family at bedside in [place] and Ukrainian. They have many concerns and questions case d/w ICU team and with hospitalist team labs, imaging, records reviewed ~ 65min required for eval, exam, review, discussion, intervention and formulation of POC for this acutely ill pt with acute hypoxic resp failure
--- NOTE | 2024-04-07 19:35 | PD.RESEVENT ---
Documentation for date of: 04/07/24 Event Note Event Note: Around 11:30 AM this morning a rapid response was called for twitching . Patient was found to have twitching of her face and body. No new change in mentation. vitals were stable. Pressure of 128/99, patient was afebrile at 99.6, respiratory rate of 20 on BiPAP. We ordered an ABG, CMP, magnesium, Phos, and patient was given 1 g of calcium gluconate, 4 mg of magnesium 2 g of lorazepam and was switched from BiPAP to high flow. Another rapid response was called around 12:30 PM for a transient episode of apnea lasting a few seconds after being given dose of lorazepam. Dr. Lopez responded. At that time patient was no longer apneic, breathing on high flow. She was then transition back to BiPAP briefly. And then eventually switched back to high flow.
--- NOTE | 2024-04-07 23:49 | PD.NEUROPROG ---
Documentation for date of: 04/07/24 Subjective Subjective Interval history: Patient was seen in telemetry today. Continues to be aphasic, started having constant myoclonus involving the right hemiface. No similar episodes involving the arms and legs noted Exam - Neurology Vital Signs Temp Pulse Resp BP Pulse Ox O2 Del Method O2 Flow Rate 97.4 F 86 18 154/52 H 93 L High Flow Nasal Cannula 30 04/07/24 19:54 04/07/24 19:54 04/07/24 19:54 04/07/24 19:54 04/07/24 19:54 04/07/24 19:54 04/07/24 19:54 FiO2 80 04/07/24 19:54 Narrative Exam GENERAL APPEARANCE: Well hydrated, well-nourished in no acute distress. HEENT: Normocephalic, atraumatic, extraocular movements intact. Pupils: Equal reacting to light NECK: Supple, no JVD or bruits. CARDIOVASULAR: Heart: S1, S2 heard, regular without S3-S4 or murmur no rubs or gallops. LUNGS/CHEST: Clear to auscultation bilaterally. No rails, rhonchi, or wheezing. Normal inspection. ABDOMEN: Soft, nontender, with normal bowel sounds. No pulsatile masses. No rebound, rigidity, or guarding. Normal inspection and palpation. EXTREMITIES: Normal inspection and palpation. No edema, clubbing or cyanosis. SKIN: Warm and dry without rashes. Normal inspection. MUSCULOSKELETAL: No cervical, thoracic, lumbar or midline bony tenderness. Normal inspection. NEURO: Alert, awake and oriented x3. Cranial nerves: II through XII grossly intact. Speech and language: Aphasic. Motor system: Tone and bulk: Normal: Strength: Moves all 4 extremities; No signs of meningeal irritation noted. Rest of the exam limited secondary to mental status PSYCHIATRIC: Limited Constitutional Constitutional: no acute distress Objective Labs 04/07/24 05:05 04/07/24 12:15 Labs: Laboratory Results - last 24 hr 04/06/24 04/07/24 04/07/24 18:57 05:05 12:14 WBC 6.1 RBC 2.92 L Hgb 8.3 L Hct 25.4 L MCV 87 MCH 28.4 MCHC 32.7 RDW Std Deviation 51.5 H Plt Count 230 Neut % (Auto) 82 H Lymph % (Auto) 16 Payne % (Auto) 2 Eos % (Auto) 0 Baso % (Auto) 0 Neut # (Auto) 5.0 Lymph # (Auto) 1.0 Payne # (Auto) 0.1 Eos # (Auto) 0.0 Baso # (Auto) 0.0 Immature Gran # (Auto) 0.02 H Absolute Nucleated RBC 0.00 Immature Gran % 0 Nucleated RBC % 0 Puncture Site Site Not Noted ABG pH 7.39 ABG pCO2 40 ABG pO2 79 L ABG HCO3 24 ABG O2 Saturation 94 ABG Base Excess -1 FiO2 21 Sodium 138 Potassium 3.9 Chloride 102 Carbon Dioxide 21.1 Anion Gap 15 BUN 52 H Creatinine 4.9 H* D Estim Creat Clear Calc 12.6 L eGFR 9 L* BUN/Creatinine Ratio 11 L Glucose 279 H D Calculated Osmolality 299 H Calcium 7.6 L Corrected Calcium 8.1 L Phosphorus 6.0 H Magnesium 1.8 Total Bilirubin 0.2 L AST 57 H ALT 15 Alkaline Phosphatase 86 Total Protein 6.2 Albumin 3.4 Globulin 2.8 Albumin/Globulin Ratio 1.2 Coccidioides IgM Ab Negative 04/07/24 12:15 WBC RBC Hgb Hct MCV MCH MCHC RDW Std Deviation Plt Count Neut % (Auto) Lymph % (Auto) Payne % (Auto) Eos % (Auto) Baso % (Auto) Neut # (Auto) Lymph # (Auto) Payne # (Auto) Eos # (Auto) Baso # (Auto) Immature Gran # (Auto) Absolute Nucleated RBC Immature Gran % Nucleated RBC % Puncture Site ABG pH ABG pCO2 ABG pO2 ABG HCO3 ABG O2 Saturation ABG Base Excess FiO2 Sodium 138 Potassium 3.8 Chloride 100 Carbon Dioxide 23.7 Anion Gap 14 BUN 31 H Creatinine 3.2 H D Estim Creat Clear Calc 19.0 L eGFR 15 L BUN/Creatinine Ratio 10 L Glucose 228 H D Calculated Osmolality 289 Calcium 7.8 L Corrected Calcium 8.1 L Phosphorus 3.9 Magnesium 1.6 Total Bilirubin 0.3 AST 73 H ALT 16 Alkaline Phosphatase 95 Total Protein 6.9 Albumin 3.6 Globulin 3.3 Albumin/Globulin Ratio 1.1 L Coccidioides IgM Ab ABG Interpretation ABG results: 04/05/24 04/06/24 04/06/24 13:11 05:17 13:37 ABG pH 7.23 L 7.23 L ABG pCO2 39 31 L ABG pO2 54 L* 70 L ABG HCO3 16 L 13 L ABG O2 Saturation 86 L 92 ABG Base Excess -11 L -13 L VBG pH 7.23 L VBG pCO2 34 L VBG pO2 35 VBG Base Excess -13 L 04/06/24 04/07/24 16:56 12:14 ABG pH 7.42 D 7.39 ABG pCO2 35 40 ABG pO2 69 L 79 L ABG HCO3 23 24 ABG O2 Saturation 94 94 ABG Base Excess -2 -1 VBG pH VBG pCO2 VBG pO2 VBG Base Excess Assessment & Plan Assessment and plan (1) Altered mental status: Status: Acute Assessment and plan: Repeat CT head was performed today that showed negative for ischemia Follow-up with the brain MRI and EEG and LP to evaluate further. 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 (2) ANA LAURA (acute kidney injury): Status: Acute Assessment and plan: Kidney function is improving slowly
[2024-04-08] VITALS (119 sets, daily range): BP systolic 000–161; BP diastolic 0–94; PULSE 68–103; RESP 12–32; TEMP 35.6–37.3; O2SAT 89–100
[2024-04-08] MEDS: ALBUTEROL/IPRATROPIUM (Duoneb) RT SOL 3 ML NEBU INH ×3 (01:00→18:30)
--- NOTE | 2024-04-08 01:00 | ESPR_ITS ---
RE: MANSI GALVIN : 1960 DATE OF SERVICE: 04/07/2024 CHIEF COMPLAINT: History of stone disease. She is found to have 10 mm and 14 mm stone lower pole left kidney. No hydronephrosis. Hounsfield unit of 98.7. ESTABLISHED DIAGNOSES: 1. History of stone disease. She went to [place], had a placement of stent, which was subsequently removed. This was done in 02/2022. In 2022, she had a stone in the lower pole left kidney and nothing was done in [place]. REASON FOR ADMISSION IN THE HOSPITAL THIS TIME: 1. Acute encephalopathy, stroke rule out. The patient has a history of CVA in 2019. 2. Acute kidney injury, possible chronic kidney disease stage IIIB, history of renal calculi. 3. Acute hypoxemic respiratory failure, community-acquired pneumonia. 4. Insulin-dependent diabetes mellitus. 5. Hypertension. HISTORY OF PRESENT ILLNESS: This is a 64-year-old female. She has past medical history of CVA, nephrolithiasis and hypertension, hyperlipidemia, anemia, diabetes. She came to the emergency room with a history of altered mentation, slurred speech and facial droop. The patient was accompanied by her daughter and according to the daughter, this started happening 2 days ago. She was also noted to have mild left facial droop. The patient has a history of stone disease in the past. The patient went to [facility] in 2021. She was transferred to [place] and she was found to have a stone in the kidney lower pole and she was told by the urologist it is not going to bother her so leave it alone. The patient was seen by me in 12/2023. At that time, she has no history of gross hematuria, dysuria, urinary tract infection. No x-ray study was available at that time. I had ordered a CAT scan with a stone protocol. In the emergency room, her serum creatinine is 5.4, BUN is 61, significant elevation compared to her baseline. She also has a blood glucose level of 265. Troponin was noted to be elevated at 1.319. The patient through the emergency room was consulted for teleneurology and it was suggested acute encephalopathy possible from ongoing infection. In the emergency room, the patient had a CAT scan of the abdomen and pelvis done. She was noted to have 10 mm and 14 mm left renal calculi in the lower pole. There was no hydronephrosis or obstructive uropathy. Nephrology was consulted and the patient was started on dialysis. I went to see the patient on telemetry . I reviewed her CAT scan. This revealed 10 mm and 14 mm stone lower pole left kidney. No hydronephrosis. No ureteral calculi. Rapid response was called and the patient's daughter wanted the patient to be transferred to [place]. I tried to explain to the patient's daughter at this time considering her condition since her stone is nonobstructive, she is not a good candidate for any surgical procedure at this time. She does not need any placement of percutaneous nephrostomy or ureteral stent. I explained to her once she has recovered fully well, there is a possibility she may have to have a PCNL. The second option would be to do a cysto retrograde ureteroscopy, laser stone fragmentation, stone basketing, stent placement, and it may be a staged procedure. The patient's daughter at this time wants the patient to be transferred to [place]. Hospitalist is going to make arrangement for the patient to be transferred to another facility if the other facility will accept transfer. At this time, the patient does not need any followup appointment with me. DT: 14:16:33 TT: 17:21:00 Ref: [id number] - TID: [id number]
[2024-04-08] MEDS: VALPROATE SOD INJ 500 MG in SODIUM CHLORIDE 0.9% 50 ML 55 MG IV ×2 (06:23→14:57)
[2024-04-08] MEDS: INSULIN LISPRO (AdmeLOG) 1 UNIT/0.01 ML UNIT SC ×3 (06:26→18:27)
[2024-04-08 07:35] LABS: Basophils % (Auto) 0 % (0-2.5); Eosinophils # (Auto) 0.1 Thou/mm3 (0.0-0.5); Eosinophils % (Auto) 1 % (0-10); Hematocrit 25.5 % (36.0-46.0); Immature Granulocytes % (Auto) 1 % (0-0); Immature Granulocytes Auto 0.07 Thou/mm3 (0.00-0.00); Lymphocytes % (Auto) 11 % (10-50); Mean Corpuscular HGB Conc 31.8 g/dl (31.0-37.0); Mean Corpuscular Hemoglobin 27.9 pg (25.0-35.0); Mean Corpuscular Volume 88 fL (80-100); Monocytes # (Auto) 0.2 Thou/mm3 (0.0-0.8); Monocytes % (Auto) 2 % (0-12); Neutrophils # (Auto) 7.3 Thou/mm3 (1.8-7.7); Neutrophils % (Auto) 85 % (37-80); Nucleated Red Blood Cell % 0 /100 WBC (0); Platelet Count 243 Thou/mm3 (140-440); RDW Standard Deviation 51.5 fL (36.4-46.3); White Blood Count 8.6 Thou/mm3 (3.6-11.0)
--- NOTE | 2024-04-08 07:37 | PC.CC ---
[id number] Ayala and informed that [facility] declined due to capacity. Dr. Ayala confirmed it is a family request, not a higher level transfer. Dr. Ayala stated it was a courtesy because family was requesting the transfer. Got orders to cancel the transfer. [id number] Tanisha's handoff that [facility] declined due to capacity.
[2024-04-08 07:58] LABS: Hemoglobin 8.1 g/dL (12.0-16.0)
--- NOTE | 2024-04-08 08:01 | PC.NURSE ---
Notified Rosana romero of procedure ordered is done under x-ray. recommended to please correct order to proper department.
[2024-04-08 08:07] LABS: Alanine Aminotransferase 25 U/L (10-49); Albumin, Serum 3.4 gm/dL (3.4-4.8); Albumin/Globulin Ratio 1.1 (1.2-2.2); Alkaline Phosphatase 95 U/L (46-116); Anion Gap 14 (7-16); Aspartate Amino Transferase 116 U/L (0-34); BUN/Creatinine Ratio 9 Ratio (12-20); Bilirubin,Total 0.2 mg/dL (0.3-1.2); Blood Urea Nitrogen 41 mg/dL (9-23); Calcium 8.1 mg/dL (8.3-10.6); Calcium (Corrected) 8.6 mg/dL (8.5-10.1); Carbon Dioxide 24.5 mMol/L (20.0-31.0); Chloride 100 mMol/L (98-107); Creatinine (Component) 4.4 mg/dL (0.6-1.3); Estimated Creatinine Clearance 13.8 mL/min (>60); Globulin 3.1 gm/dL (2.3-3.5); Glucose 318 mg/dL (74-106); Magnesium 2.2 mg/dL (1.6-2.6); Osmolality,Calculated 297 (275-295); Phosphorous 5.8 mg/dL (2.4-5.1); Sodium 138 mMol/L (136-145); Total Protein 6.5 gm/dL (5.7-8.2); eGFR 11 See Note
--- NOTE | 2024-04-08 08:35 | PC.NURSE ---
Pt transfered to ICU at 08:25. Handoff Report given to Rosana ROSALES at 07:50. Daughter contacted by Alexa ROSALES.
--- NOTE | 2024-04-08 08:57 | PD.RESPRO ---
Documentation for date of: 04/08/24 Subjective Subjective Interval history: The patient is a 64-year-old female with significant past medical history of 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 Stroke alert was called, and underwent stroke workup. tPA not given due to out of window. On further interviewing, she reported that she has been taking some penicillin that was brought from [place] of long time ago. She also took Motrin x 2 in last 2 days. She admitted having fever, denied any chills, lightheadedness, chest pain, and any flank pain. Her vitals are fairly stable, hemoglobin 9.1, ABG significant for pH 7.23, pCO2 39, pO2 70. Chemistry panel revealed sodium 133, mild hyperkalemia, bicarb 15.1. BUN 66, creatinine 5.9, EGFR 7. Baseline creatinine is 1.6 with EGFR 56. Triglyceride 493, cholesterol 191, HDL 30 with normal TSH and T4. Hepatitis panel negative. CT head negative for midline shift, acute hemorrhage or mass effect. Pending carotid US, and brain MRI. CXR with mild congestion and superimposed pneumonia. CT abdomen pelvis revealed significant hepatomegaly, moderate bilateral renal parenchymal scarring, 10 mm and 14 mm renal calculi on the left, cystitis pattern, no hydronephrosis or bowel obstruction. PMH: As mentioned above Social history: Denies alcohol, smoking or any illicit drug use Allergies: No known allergies 04/07/2024: The patient was interviewed and examined at the bedside. She was saturating 93% on BiPAP, with FiO2 40% and O2 flow 30 L. Chemistry panel revealed BUN 52, creatinine 4.9, EGFR 9, blood sugar 279, calcium 8.1 and phosphorus 6.0. The patient will get second session of hemodialysis this morning. Urine random creatinine 113, protein 598, sodium 42, potassium 33, chloride 27, urea nitrogen 302. Renal ultrasound significant for moderate bilateral renal parenchymal eschar formation, bilateral renal cortical thinning with no hydronephrosis. 04/08/2024: The patient was examined at the bedside this morning. She reported having difficulty breathing. She was upgraded to ICU. She was saturating 92% on BiPAP. Other vitals were fairly stable. Physical examination was significant for distant breath sounds, and bibasilar crackles. Labs were significant for hemoglobin trending down to 8.1 likely dilutional, BUN 41 and creatinine 4.4, phosphorus 5.8. Ordered ZAINAB screen, ANCA, antiproteinase 3, antimyeloperoxidase and complement level. Exam Vital Signs Temp Pulse Resp BP Pulse Ox O2 Del Method O2 Flow Rate 97.5 F 82 19 161/58 H 92 L Nasal Cannula 30 04/08/24 03:56 04/08/24 04:00 04/08/24 03:56 04/08/24 03:56 04/08/24 03:56 04/08/24 03:56 04/08/24 03:56 FiO2 80 04/08/24 03:56 Narrative Exam General: No acute distress, alert and oriented to herself and family members only HEENT: Moist mucous membranes, oropharynx clear Neck: Supple, No masses, No JVD CVS: S1S2 Regular rate and rhythm, No murmurs, rubs or gallops Lungs: Distant breath sounds, bibasilar crackles, no wheeze no rhonchi Abd: Soft, NT/ND, +BS, no organomegaly Ext: 1-2+ bilateral lower limb edema, warm and well perfused, peripheral arteries barely palpable Skin: No rash Neuromuscular: Left upper and lower extremity decreased strength Psych: Anxious Objective Labs 04/09/24 04:25 04/09/24 14:51 Labs: Laboratory Results - last 24 hr 04/06/24 04/07/24 04/07/24 18:57 12:14 12:15 WBC RBC Hgb Hct MCV MCH MCHC RDW Std Deviation Plt Count Neut % (Auto) Lymph % (Auto) [place] % (Auto) Eos % (Auto) Baso % (Auto) Neut # (Auto) Lymph # (Auto) [place] # (Auto) Eos # (Auto) Baso # (Auto) Immature Gran # (Auto) Absolute Nucleated RBC Immature Gran % Nucleated RBC % Puncture Site Site Not Noted ABG pH 7.39 ABG pCO2 40 ABG pO2 79 L ABG HCO3 24 ABG O2 Saturation 94 ABG Base Excess -1 FiO2 21 Sodium 138 Potassium 3.8 Chloride 100 Carbon Dioxide 23.7 Anion Gap 14 BUN 31 H Creatinine 3.2 H D Estim Creat Clear Calc 19.0 L eGFR 15 L BUN/Creatinine Ratio 10 L Glucose 228 H D Calculated Osmolality 289 Calcium 7.8 L Corrected Calcium 8.1 L Phosphorus 3.9 Magnesium 1.6 Total Bilirubin 0.3 AST 73 H ALT 16 Alkaline Phosphatase 95 Total Protein 6.9 Albumin 3.6 Globulin 3.3 Albumin/Globulin Ratio 1.1 L Coccidioides IgM Ab Negative 04/08/24 07:10 WBC 8.6 D RBC 2.90 L Hgb 8.1 L Hct 25.5 L MCV 88 MCH 27.9 MCHC 31.8 RDW Std Deviation 51.5 H Plt Count 243 Neut % (Auto) 85 H Lymph % (Auto) 11 [place] % (Auto) 2 Eos % (Auto) 1 Baso % (Auto) 0 Neut # (Auto) 7.3 Lymph # (Auto) 1.0 [place] # (Auto) 0.2 Eos # (Auto) 0.1 Baso # (Auto) 0.0 Immature Gran # (Auto) 0.07 H Absolute Nucleated RBC 0.00 Immature Gran % 1 H Nucleated RBC % 0 Puncture Site ABG pH ABG pCO2 ABG pO2 ABG HCO3 ABG O2 Saturation ABG Base Excess FiO2 Sodium 138 Potassium 4.0 Chloride 100 Carbon Dioxide 24.5 Anion Gap 14 BUN 41 H Creatinine 4.4 H* D Estim Creat Clear Calc 13.8 L eGFR 11 L* BUN/Creatinine Ratio 9 L Glucose 318 H D Calculated Osmolality 297 H Calcium 8.1 L Corrected Calcium 8.6 Phosphorus 5.8 H Magnesium 2.2 Total Bilirubin 0.2 L AST 116 H ALT 25 Alkaline Phosphatase 95 Total Protein 6.5 Albumin 3.4 Globulin 3.1 Albumin/Globulin Ratio 1.1 L [place]occid[place]ides IgM Ab ABG Interpretation ABG results: 04/05/24 04/06/24 04/06/24 13:11 05:17 13:37 ABG pH 7.23 L 7.23 L ABG pCO2 39 31 L ABG pO2 54 L* 70 L ABG HCO3 16 L 13 L ABG O2 Saturation 86 L 92 ABG Base Excess -11 L -13 L VBG pH 7.23 L VBG pCO2 34 L VBG pO2 35 VBG Base Excess -13 L 04/06/24 04/07/24 16:56 12:14 ABG pH 7.42 D 7.39 ABG pCO2 35 40 ABG pO2 69 L 79 L ABG HCO3 23 24 ABG O2 Saturation 94 94 ABG Base Excess -2 -1 VBG pH VBG pCO2 VBG pO2 VBG Base Excess Quality Measures Quality Measures VTE prophylaxis Advance care planning discussed with:: child Assessment & Plan Assessment Current Active Medications: Generic Name Dose Route Start Last Admin Trade Name Freq PRN Reason Stop Dose Admin Acetaminophen 650 mg 04/05/24 23:06 Acetaminophen 325 Mg Tablet PO 05/05/24 23:05 Q6H PRN PAIN SCALE 1-3 (mild Acetaminophen 650 mg 04/05/24 23:06 Acetaminophen 325 Mg Tablet PO 05/05/24 23:05 Q6H PRN Fever >100 Hydrocodone Bitart/Acetaminophen 1 tab 04/05/24 23:06 Hydrocodone/Apap 10/325 Tab PO 04/10/24 23:05 Q4HR PRN PAIN SCALE 7-10 (Severe Albuterol/Ipratropium 3 ml 04/06/24 01:00 04/08/24 01:00 Albuterol/Ipratropium (Duoneb) Rt Princess 3 Ml Nebu INH 05/06/24 00:59 3 ml Q6HRRT DELMY Administration Aspirin 81 mg 04/06/24 09:00 04/06/24 15:41 Aspirin Ec 81 Mg Tabec PO 05/06/24 08:59 Not Given QDAY DELMY Aspirin 300 mg 04/06/24 12:15 04/07/24 12:24 Aspirin 300 Mg Supp ID 05/06/24 12:14 300 mg QDAY DELMY Administration Atorvastatin Calcium 80 mg 04/06/24 21:00 04/07/24 20:14 Atorvastatin Calcium 20 Mg Tablet PO 05/06/24 20:59 Not Given HS DELMY Calcium Carbonate 600 mg 04/06/24 14:45 04/07/24 20:37 Calcium Carbonate 600 Mg Tablet PO 05/06/24 14:44 Not Given BID DELMY Dextrose 25 ml 04/07/24 10:52 Dextrose 50%-Water Inj 50 Ml Syringe IV 05/07/24 10:51 Q15MIN PRN BG 50-70 responsive npo pt Dextrose 50 ml 04/07/24 10:52 Dextrose 50%-Water Inj 50 Ml Syringe IV 05/07/24 10:51 Q15MIN PRN BG <50 OR BG <70 & pt unresponsive Epoetin Go 10,000 unit 04/08/24 10:00 Epoetin Go-Epbx Inj 10,000 Unit/Ml Vial (Esrd) SC 04/08/24 10:01 X1 ONE Glucagon 1 mg 04/07/24 10:52 Glucagon Inj 1 Mg Vial IM Q15MIN PRN BG <70, and no IV access Heparin Sodium (Porcine) 3,300 unit 04/06/24 15:03 04/07/24 11:16 Heparin Sod Inj 1000 Unit/Ml Vial 10 Ml INDWELLCAT 04/20/24 15:02 3,300 unit PRN PRN Administration DIALYSIS Albumin Human 25 gm in 100 mls @ 100 mls/min 04/06/24 08:27 Albuminar-25 Ivpb IV PRN PRN DIALYSIS Doxycycline Hyclate 100 mg/ 100 mls @ 100 mls/hr 04/06/24 21:00 04/07/24 20:38 Sodium Chloride IV 04/13/24 20:59 100 mls/hr BID DELMY Administration Cefepime HCl 2 gm/ Sodium 50 mls @ 100 mls/hr 04/08/24 09:00 Chloride IV 04/15/24 08:59 QDAY DELMY Valproic Acid 500 mg/ Sodium 55 mls @ 55 mls/hr 04/08/24 06:00 04/08/24 06:23 Chloride IV 05/08/24 05:59 55 mls/hr Q8HR DELMY Administration Insulin Glargine 6 unit 04/08/24 09:00 Insulin Glargine (Lantus) 5 Unit/0.05 Ml (Per 5 Units) SC 05/08/24 08:59 QAM DELMY Insulin Human Lispro 0 unit 04/07/24 12:00 04/08/24 06:26 Insulin Lispro (Admelog) 1 Unit/0.01 Ml Unit SC 05/07/24 11:59 3 unit Q6HR DELMY Administration Protocol Labetalol HCl 10 mg 04/05/24 23:55 Labetalol Inj 5 Mg/Ml Vial 20 Ml IVP 05/05/24 23:54 X1 PRN BP >220/110 Lidocaine HCl 9 ml 04/06/24 11:00 Lidocaine Inj Pf 1% 5 Ml Vial INFL X1 PRN LOCAL ANESTHESIA Protocol Ondansetron HCl 4 mg 04/05/24 23:06 Ondansetron Inj 2 Mg/Ml Inj 2 Ml IV 05/05/24 23:05 Q6H PRN NAUSEA OR VOMITING Protocol Oxycodone/Acetaminophen 1 tab 04/05/24 23:06 Oxycodone/Apap 5/325 Tablet PO 04/10/24 23:05 Q6H PRN PAIN SCALE 4-6 (Moderate Pantoprazole Sodium 40 mg 04/06/24 09:00 04/07/24 12:23 Pantoprazole Inj 40 Mg Vial IVP 05/06/24 08:59 40 mg QDAY [facility] Administration Pharmacy Consult 1 each 04/08/24 09:00 Pharmacy Renal Dose Adjustment 1 Ea XX 05/08/24 08:59 QDAY [facility] Plan The patient is a 64-year-old female with significant past medical history of 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 Stroke alert was called, and underwent stroke workup. tPA not given due to out of window. On further interviewing, she reported that she has been taking some penicillin that was brought from [place] of long time ago. She also took Motrin x 2 in last 2 days. She admitted having fever, denied any chills, lightheadedness, chest pain, and any flank pain. Nephrology consultation was done for further management of ANA LAURA in CKD stage IIIa. 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 On admission, creatinine 5.9 and GFR 7. On admission ABG significant for acidemia with pH 7.23, pCO2 39, pO2 70. Chemistry panel revealed sodium 133, mild hyperkalemia, bicarb 15.1. ABG significant for pH 7.42 revealing improvement in acidemia, BUN 52, creatinine 4.9, EGFR 9, calcium 8.1, phosphorus 6.0. Urine electrolytes with creatinine 113, total protein 598, sodium 42 (>40 suggestive of ATN), potassium 33, chloride 27, and urea nitrogen 302. BUN/CR ratio <20 so less likely prerenal. Renal ultrasound significant for moderate bilateral renal parenchymal eschar formation, bilateral renal cortical thinning with no hydronephrosis. -Stop the offending agent, penicillin which is likely cause of possible ATN 04/08/2024: Labs were significant for hemoglobin trending down to 8.1 likely dilutional, BUN 41 and creatinine 4.4, phosphorus 5.8. Ordered ZAINAB screen, ANCA, antiproteinase 3, antimyeloperoxidase and complement level, and we will plan for renal biopsy if ANA LAURA doesn't resolve in a couple of days. -Continue to monitor renal panel -Patient will undergo 3.5 hours hemodialysis session x 1 this morning again, and we will plan for 3 L ultrafiltration goal. #Hypocalcemia, improved 04/05 #Hyperphosphatemia -Improving Secondary to ANA LAURA on CKD -Started on calcium carbonate 600 Mg twice daily -We will get phosphorus level tomorrow morning again after HD as after hemodialysis it significantly improved to 6.0, we will hold on sevelamer. -Continue to monitor renal panel #Hypertensive emergency, resolved -Awaiting MRI brain #Acute encephalopathy #Stroke rule out #Hx of CVA 2018 #Acute nephrolithiasis #Hx of renal calculi #Acute hypoxemic respiratory failure #Community-acquired pneumonia #GEMMA/OHS on oxygen HS #NSTEMI type II (improving) #HTN, HLD #IDDM type II -Management deferred to primary hospitalist team. Thank you for your opportunity to participate nephrology team in this patient care. The patient's management plan was discussed with my attending physician MD Jose Serrano MD, PGY2 Attending Provider Attestation/Addendum Patient seen and examined with resident physician Dr. Nesbitt. Note reviewed, agree with findings and recommendations. Patient currently seen in telemetry. Currently on BiPAP for hypoxic respiratory failure. Per daughter patient was agitated overnight and was restrained. Due to azotemia, metabolic acidosis decided to proceed with dialysis. Dr. Dias placed dialysis catheter. 04/08/2024 patient currently seen on dialysis. Blood pressure on the lower side Hemodialysis for 3 hours, 2K, ultrafiltration 1 L, Epogen 6000, no heparin ordered. Plan of care discussed with the dialysis nurse. Please see dialysis flowsheet for further details. Acute renal failure most likely related to ATN question related to antibiotics from [place] versus underlying infection itself with fluctuations in blood pressures. Check serology - r/o PIGN Patient also noted to have twitching and altered mental status. Neurology was consulted. Might need an LP.
--- NOTE | 2024-04-08 09:01 | PC.PT ---
Will cancel PT eval / patient was transferred to ICU.
--- NOTE | 2024-04-08 09:20 | PC.SS ---
Update: Patient upgraded to ICU from Tele today.
--- NOTE | 2024-04-08 09:57 | PC.LAC ---
BP dropped. UF off, albumin 25% given. Dr. Bardales stated she would start levophed.
[2024-04-08] MEDS: Norepinephrine/D5W 8mg/250ml 8 MG/250 ML BAG 9.956 MG IV (10:00)
[2024-04-08] MEDS: ALBUMIN HUMAN 25% IVPB 25 GM/100 ML BTL IV (10:03)
--- NOTE | 2024-04-08 10:16 | PC.NURSE ---
Levophed started by CONNIE Sheridan. Unable to obrtain BP in last 15 minutes.
--- NOTE | 2024-04-08 10:32 | PC.NURSE ---
BP up, so increased UF to 2.5 L.
--- NOTE | 2024-04-08 10:44 | ESPR_ITS ---
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 Upon arrival to the ED, stroke alert was called. CT head negative, however patient was outside of TNK window. MRI brain recommended but given that patient continues to have altered mental status and cannot follow commands in addition to requiring HFNC, will not be able to obtain. Echo obtained on 04/05, negative bubble study and EF 55 to 60%. Carotid Doppler was poor study due to lack of patient cooperation. Labs obtained in ED showed creatinine of 5.4, which is significantly elevated from baseline of 1.0. Thus, TDC was placed and patient has since received 2 dialysis sessions (04/06, 04/07), however has not had any improvement in her mental status. Throughout hospital course, patient has had 3 rapid responses. On 04/06 rapid response for fever of 103 ?F, 04/07 for episode of twitching on right side of face, and again on 04/07 for episode of apnea for few seconds after dose of lorazepam. ICU was consulted given that patient has had increased oxygen requirements and altered mental status and evaluated if patient will require closer monitoring to protect her airways. 04/08: No acute overnight events reported. She was noted to have increased oxygen requirements after coming back from repeat CT head. She was originally on HFNC at 30 L/min, 50% FiO2 and is currently on 30 L/min and now 80% FiO2. Repeat CT head showed no gross hemorrhage or mass effect but patient motion is significantly degraded image quality. Patient noted to have less spontaneous movements compared to yesterday and contacted MRI regarding possibility of obtaining imaging. However, they will not be able to accommodate patients on high flow nor on BiPAP. Underwent third session of hemodialysis today, with removal of 3 L of fluid. Blood pressure dropped to 86/48 and was given Levophed. Exam Vital Signs Temp Pulse Resp BP Pulse Ox O2 Del Method O2 Flow Rate 97.3 F 80 19 145/78 H 92 L Nasal Cannula 30 04/08/24 08:56 04/08/24 10:30 04/08/24 08:56 04/08/24 10:30 04/08/24 08:56 04/08/24 03:56 04/08/24 03:56 FiO2 80 04/08/24 08:56 Narrative Exam General: obese, not able to follow commands, R-sided facial twitching HEENT: NC/AT, mucous membranes moist Cardiovascular: regular rate and rhythm, S1/S2 present, no murmurs appreciated Pulmonary: crackles appreciated at R lung bases Abdominal: obese/distended, firm, no guarding Musculoskeletal: no peripheral edema, peripheral pulses 2+ Skin: R open wound on right neck above medial clavicle with overlying tagiderm Neuro: unable to follow commands, GCS 10 Objective Labs 04/12/24 04:23 04/12/24 04:23 Labs: Laboratory Results - last 24 hr 04/06/24 04/07/24 04/07/24 18:57 12:14 12:15 WBC RBC Hgb Hct MCV MCH MCHC RDW Std Deviation Plt Count Neut % (Auto) Lymph % (Auto) [place] % (Auto) Eos % (Auto) Baso % (Auto) Neut # (Auto) Lymph # (Auto) [place] # (Auto) Eos # (Auto) Baso # (Auto) Immature Gran # (Auto) Absolute Nucleated RBC Immature Gran % Nucleated RBC % Puncture Site Site Not Noted ABG pH 7.39 ABG pCO2 40 ABG pO2 79 L ABG HCO3 24 ABG O2 Saturation 94 ABG Base Excess -1 FiO2 21 Sodium 138 Potassium 3.8 Chloride 100 Carbon Dioxide 23.7 Anion Gap 14 BUN 31 H Creatinine 3.2 H D Estim Creat Clear Calc 19.0 L eGFR 15 L BUN/Creatinine Ratio 10 L Glucose 228 H D Calculated Osmolality 289 Calcium 7.8 L Corrected Calcium 8.1 L Phosphorus 3.9 Magnesium 1.6 Total Bilirubin 0.3 AST 73 H ALT 16 Alkaline Phosphatase 95 Total Protein 6.9 Albumin 3.6 Globulin 3.3 Albumin/Globulin Ratio 1.1 L Coccidioides IgM Ab Negative 04/08/24 07:10 WBC 8.6 D RBC 2.90 L Hgb 8.1 L Hct 25.5 L MCV 88 MCH 27.9 MCHC 31.8 RDW Std Deviation 51.5 H Plt Count 243 Neut % (Auto) 85 H Lymph % (Auto) 11 [place] % (Auto) 2 Eos % (Auto) 1 Baso % (Auto) 0 Neut # (Auto) 7.3 Lymph # (Auto) 1.0 [place] # (Auto) 0.2 Eos # (Auto) 0.1 Baso # (Auto) 0.0 Immature Gran # (Auto) 0.07 H Absolute Nucleated RBC 0.00 Immature Gran % 1 H Nucleated RBC % 0 Puncture Site ABG pH ABG pCO2 ABG pO2 ABG HCO3 ABG O2 Saturation ABG Base Excess FiO2 Sodium 138 Potassium 4.0 Chloride 100 Carbon Dioxide 24.5 Anion Gap 14 BUN 41 H Creatinine 4.4 H* D Estim Creat Clear Calc 13.8 L eGFR 11 L* BUN/Creatinine Ratio 9 L Glucose 318 H D Calculated Osmolality 297 H Calcium 8.1 L Corrected Calcium 8.6 Phosphorus 5.8 H Magnesium 2.2 Total Bilirubin 0.2 L AST 116 H ALT 25 Alkaline Phosphatase 95 Total Protein 6.5 Albumin 3.4 Globulin 3.1 Albumin/Globulin Ratio 1.1 L Coccidioides IgM Ab ABG Interpretation ABG results: 04/05/24 04/06/24 04/06/24 13:11 05:17 13:37 ABG pH 7.23 L 7.23 L ABG pCO2 39 31 L ABG pO2 54 L* 70 L ABG HCO3 16 L 13 L ABG O2 Saturation 86 L 92 ABG Base Excess -11 L -13 L VBG pH 7.23 L VBG pCO2 34 L VBG pO2 35 VBG Base Excess -13 L 04/06/24 04/07/24 16:56 12:14 ABG pH 7.42 D 7.39 ABG pCO2 35 40 ABG pO2 69 L 79 L ABG HCO3 23 24 ABG O2 Saturation 94 94 ABG Base Excess -2 -1 VBG pH VBG pCO2 VBG pO2 VBG Base Excess Quality Measures Quality Measures VTE prophylaxis Advance care planning discussed with:: child Assessment & Plan Assessment Current Active Medications: Generic Name Dose Route Start Last Admin Trade Name Freq PRN Reason Stop Dose Admin Acetaminophen 650 mg 04/05/24 23:06 Acetaminophen 325 Mg Tablet PO 05/05/24 23:05 Q6H PRN PAIN SCALE 1-3 (mild Acetaminophen 650 mg 04/05/24 23:06 Acetaminophen 325 Mg Tablet PO 05/05/24 23:05 Q6H PRN Fever >100 Hydrocodone Bitart/Acetaminophen 1 tab 04/05/24 23:06 Hydrocodone/Apap 10/325 Tab PO 04/10/24 23:05 Q4HR PRN PAIN SCALE 7-10 (Severe Albuterol/Ipratropium 3 ml 04/06/24 01:00 04/08/24 01:00 Albuterol/Ipratropium (Duoneb) Rt Princess 3 Ml Nebu INH 05/06/24 00:59 3 ml Q6HRRT DELMY Administration Aspirin 81 mg 04/06/24 09:00 04/06/24 15:41 Aspirin Ec 81 Mg Tabec PO 05/06/24 08:59 Not Given QDAY DELMY Aspirin 300 mg 04/06/24 12:15 04/07/24 12:24 Aspirin 300 Mg Supp AL 05/06/24 12:14 300 mg QDAY DELMY Administration Atorvastatin Calcium 80 mg 04/06/24 21:00 04/07/24 20:14 Atorvastatin Calcium 20 Mg Tablet PO 05/06/24 20:59 Not Given HS DELMY Calcium Carbonate 600 mg 04/06/24 14:45 04/07/24 20:37 Calcium Carbonate 600 Mg Tablet PO 05/06/24 14:44 Not Given BID DELMY Dextrose 25 ml 04/07/24 10:52 Dextrose 50%-Water Inj 50 Ml Syringe IV 05/07/24 10:51 Q15MIN PRN BG 50-70 responsive npo pt Dextrose 50 ml 04/07/24 10:52 Dextrose 50%-Water Inj 50 Ml Syringe IV 05/07/24 10:51 Q15MIN PRN BG <50 OR BG <70 & pt unresponsive Glucagon 1 mg 04/07/24 10:52 Glucagon Inj 1 Mg Vial IM Q15MIN PRN BG <70, and no IV access Heparin Sodium (Porcine) 3,300 unit 04/06/24 15:03 04/07/24 11:16 Heparin Sod Inj 1000 Unit/Ml Vial 10 Ml INDWELLCAT 04/20/24 15:02 3,300 unit PRN PRN Administration DIALYSIS Albumin Human 25 gm in 100 mls @ 100 mls/min 04/06/24 08:27 04/08/24 10:03 Albuminar-25 Ivpb IV 100 mls/min PRN PRN Administration DIALYSIS Doxycycline Hyclate 100 mg/ 100 mls @ 100 mls/hr 04/06/24 21:00 04/07/24 20:38 Sodium Chloride IV 04/13/24 20:59 100 mls/hr BID DELMY Administration Cefepime HCl 2 gm/ Sodium 50 mls @ 100 mls/hr 04/08/24 09:00 Chloride IV 04/15/24 08:59 QDAY DELMY Valproic Acid 500 mg/ Sodium 55 mls @ 55 mls/hr 04/08/24 06:00 04/08/24 06:23 Chloride IV 05/08/24 05:59 55 mls/hr Q8HR DELMY Administration Dexmedetomidine/Sodium Chloride 200 mcg in 50 mls @ 5.31 mls/hr 04/08/24 09:17 Precedex Ivpb IV 05/08/24 09:16 .Q9H25M PRN Per PROTOCOL Protocol 0.2 MCG/KG/HR Norepinephrine/Dextrose 8 mg in 250 mls @ 9.956 mls/hr 04/08/24 09:53 04/08/24 10:00 Levophed In D5w 8mg/250ml IV 05/08/24 09:52 0.05 mcg/kg/min .Q24H PRN 9.956 mls/hr PER PROTOCOL Administration Protocol 0.05 MCG/KG/MIN Insulin Glargine 6 unit 04/09/24 09:00 Insulin Glargine (Lantus) 5 Unit/0.05 Ml (Per 5 Units) SC 05/08/24 08:59 QAM [facility] Insulin Human Lispro 0 unit 04/07/24 12:00 04/08/24 06:26 Insulin Lispro (Admelog) 1 Unit/0.01 Ml Unit SC 05/07/24 11:59 3 unit Q6HR DELMY Administration Protocol Labetalol HCl 10 mg 04/05/24 23:55 Labetalol Inj 5 Mg/Ml Vial 20 Ml IVP 05/05/24 23:54 X1 PRN BP >220/110 Lidocaine HCl 9 ml 04/06/24 11:00 Lidocaine Inj Pf 1% 5 Ml Vial INFL X1 PRN LOCAL ANESTHESIA Protocol Ondansetron HCl 4 mg 04/05/24 23:06 Ondansetron Inj 2 Mg/Ml Inj 2 Ml IV 05/05/24 23:05 Q6H PRN NAUSEA OR VOMITING Protocol Oxycodone/Acetaminophen 1 tab 04/05/24 23:06 Oxycodone/Apap 5/325 Tablet PO 04/10/24 23:05 Q6H PRN PAIN SCALE 4-6 (Moderate Pantoprazole Sodium 40 mg 04/06/24 09:00 04/07/24 12:23 Pantoprazole Inj 40 Mg Vial IVP 05/06/24 08:59 40 mg QDAY [facility] Administration Pharmacy Consult 1 each 04/08/24 09:00 Pharmacy Renal Dose Adjustment 1 Ea XX 05/08/24 08:59 QDAY [facility] Plan Sofiya Vogt is a 64-year-old female with a past medical history of 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 Neurological #Acute encephalopathy, secondary to toxic-metabolic etiology vs CVA vs meningitis vs encephalitis Initially presented with focal neurological deficits, including unilateral facial droop and slurred speech. CT head has thus far been negative, including repeat although severely limited due to patient movement. Have not been able to obtain MRI given the patient is not able to follow commands, in addition to increased oxygen requirements so cannot rule out CVA as an etiology. Given that patient mentation has not improved after receiving 2 sessions of hemodialysis, unlikely due to uremia. ABG also did not indicate hypercapnia, therefore also unlikely etiology. ? Neurology consulted ? Follow-up EEG ? Ativan 2 mg x 1 if patient becomes restless during EEG ? No Precedex drip per neurology recommendations ? Valproate 750 mg IV every 8 hours ? MRI brain, unable to obtain given that patient is currently on HFNC and not compatible with MRI ? Lumbar puncture done at bedside on 04/08 with opening pressure noted to be 33 cm H2O ? Follow-up CSF studies ? Follow-up ZAINAB, ANCA, C3, C4 Cardiovascular #Elevated troponins, likely NSTEMI type II Downtrended from 1.3 to 1.2, stable Pulmonary #Acute hypoxic respiratory failure secondary to CAP Upon evaluation, patient saturating 89 to 90% on HFNC. ABG showed pH 7.39, pCO2 40, pO2 79. ? HFNC 30 L/min, 50% FiO2 ? Duonebs #Community acquired penumonia CT chest showed bilateral pneumonia ? Cefepime and doxycycline Gastrointestinal #Transaminitis, stable Has received multiple antibiotics Renal #Acute kidney injury, improving on HD Status post placement of TDC and has since had 2 hemodialysis sessions (04/06, 04/07) ? Renally dose medications ? Avoid nephrotoxic agents #History of staghorn calculi #Nephrolithiasis 10 mm and 14 mm lower pole left renal calculi without hydronephrosis seen on CT A/P. ? Urology consulted ? Not surgical candidate at this time ? No indication for percutaneous nephrostomy tube or ureteral stent ? Possible to have PCNL after patient is fully recovered Endocine #Type 2 diabetes mellitus A1c 7.6%. Fasting glucose 318, glargine increased from 6 to 10 units. ? SSI ? 10 units glargine Heme #Chronic, normocytic anemia Slowly downtrending but stable. Has not had bloody bowel movements or gross hematuria. ? Continue to monitor Infectious disease #Community acquired pneumonia Dada fever on 04/06, but has been stable since. No leukocytosis. ? Cefepime and doxycycline ? Cocci IgM negative, IgG pending ? Follow-up cultures ? COVID, RSV, and flu negative Hospital management: Disposition: acute encephalopathy, on IV antibiotics Fluids: none Pressors: Levophed for HD, weaning down Sedatives: Precedex PRN Diet: NPO Lines: peripheral GI prophylaxis: pantoprazole 40 mg IV CODE STATUS: full code ----- Plan discussed with attending physician Dr. Bardales. Ion Andino MD PGY-1 Internal Medicine Attending Provider Attestation/Addendum pt seen and examined with resident, agree with above. in brief this is a 64yo F brought to the ICU for acute hypoxic resp failure with increasing FiO2 needs from yesterday and increase WOB. She remains profoundly encephalopathic and agitated. She is scheduled for HD today and will d/w nephrology for poss removal of up to 3lts if tolerated. CXR shows worsening infiltrate with vascular congestion. d/w neuro and pt for EEG today and eval posibility of MRI. given pulmonary infiltrated and ANA LAURA ? any pulmonary renal syndrome. After transfer to the ICU in the afternoon once HD started her BP did dip which required vasopressor support to remove additional volume. case d/w ICU team labs, imaging, records reviewed ~ 40ccmin required for eval, exam, review, intervention, discussion and formulation of POC for this critically ill pt with hypoxic resp failure at high risk for further and ongoing decompensation.
--- NOTE | 2024-04-08 10:54 | RESP.EEG ---
UNABLE TO COMPLETE EEG AT THIS TIME DUE TO DIALYSIS BEING IN PROCESS
--- NOTE | 2024-04-08 11:12 | PC.NURSE ---
Dr Sheridan increased time to 3.5 hrs. Time increased and UF increased to 3.0 L.
[2024-04-08] MEDS: PANTOPRAZOLE INJ 40 MG VIAL IVP (12:13)
[2024-04-08 12:47] LABS: Band Neutrophils (Manual) 35 % (0-6); Lymphocytes (Manual) 5 % (20-44); Metamyelocytes (Manual) 1 % (0-0); Monocytes (Manual) 3 % (2-9); Myelocytes (Manual) 2 % (0-0); Neutrophils (Manual) 54 % (50-70)
[2024-04-08] MEDS: HEPARIN SOD INJ 1000 UNIT/ML VIAL 10 ML 3300 UNIT INDWELLCAT (13:05)
[2024-04-08] MEDS: CEFEPIME INJ 2 GM in SODIUM CHLORIDE 0.9% 50 ML IV (13:09)
[2024-04-08] MEDS: ASPIRIN 300 MG SUPP PR (13:41)
[2024-04-08] MEDS: DOXYCYCLINE INJ 100 MG in SODIUM CHLORIDE 0.9% (P) 100 ML IV ×2 (13:50→21:55)
[2024-04-08] MEDS: EPOETIN ALFA-EPBX INJ 10,000 UNIT/ML VIAL (ESRD) 10000 UNIT SC (13:57)
--- NOTE | 2024-04-08 14:10 | PCS.ST ---
Pt has not been able to participate in swallow evaluation. Please re-order if/when needed.
[2024-04-08 14:26] LABS: Ammonia < 10 uMol/L (11-32)
[2024-04-08 14:36] LABS: Cocci Serology, IgG Negative (Negative)
[2024-04-08 14:54] LABS: Base Excess -1 (-3-3); HCO3 25 mEq/L (20-26); Inspired Oxygen, FIO2 80 %; O2 Saturation 71 % (91-98); PCO2 44 mmHg (32.0-48.0); pH, Arterial 7.36 (7.35-7.45)
[2024-04-08 15:04] LABS: PO2 40 mmHg (83-108); Puncture Site Right Radial
[2024-04-08 15:05] LABS: Allen Test Performed/OK
[2024-04-08 16:35] LABS: Base Excess -1 (-3-3); HCO3 25 mEq/L (20-26); Inspired Oxygen, FIO2 80 %; O2 Saturation 63 % (91-98); PCO2 46 mmHg (32.0-48.0); pH, Arterial 7.34 (7.35-7.45)
[2024-04-08 16:37] LABS: PO2 36 mmHg (83-108)
[2024-04-08 16:38] LABS: Allen Test Performed/OK; Puncture Site Right Brachial
[2024-04-08 17:32] LABS: Base Excess -1 (-3-3); HCO3 25 mEq/L (20-26); O2 Saturation 97 % (91-98); PCO2 45 mmHg (32.0-48.0); PO2 113 mmHg (83-108); pH, Arterial 7.35 (7.35-7.45)
[2024-04-08 17:47] LABS: Inspired Oxygen, FIO2 80 %
[2024-04-08 17:49] LABS: Allen Test Performed/OK; Puncture Site Left Radial
[2024-04-08] MEDS: VALPROATE SOD INJ 500 MG in SODIUM CHLORIDE 0.9% 50 ML 110 MG IV (18:27)
[2024-04-08 18:28] LABS: Coccid Serology, CF CSF (UCD)* See Sep Rpt
[2024-04-08 18:56] LABS: Glucose,CSF 148 mg/dL (40-70); Protein Total,CSF 54 mg/dL (8-32)
[2024-04-08 19:09] LABS: CSF Red Blood Cell 0 /cmm; CSF White Blood Cell 4 /cmm
[2024-04-08 19:10] LABS: CSF Cell Count Tube # Tube # 4; CSF Color Colorless (Colorless)
[2024-04-08 19:35] LABS: CSF, Appearance Clear (Clear)
[2024-04-08 20:45] LABS: CSF Differential Comment 27; CSF Gram Stain Alert Gram Stain Completed
[2024-04-08 20:49] LABS: CSF Polynuclear WBC 3 %
[2024-04-08] MEDS: VALPROATE SOD INJ 750 MG in SODIUM CHLORIDE 0.9% 50 ML 55 MG IV (21:55)
--- NOTE | 2024-04-08 22:35 | PD.NEUROPROG ---
Documentation for date of: 04/08/24 Subjective Subjective Interval history: Patient was seen in ICU today. Continues to be somnolent, aphasic, started having constant myoclonus involving the right hemiface after having stopped for some time following IV depacon. No similar movements involving the arms and legs noted Exam - Neurology Vital Signs Temp Pulse Resp BP Pulse Ox O2 Del Method O2 Flow Rate 98.4 F 84 16 128/54 L 92 L High Flow Nasal Cannula 30 04/08/24 16:02 04/08/24 20:30 04/08/24 20:30 04/08/24 20:30 04/08/24 20:30 04/08/24 16:02 04/08/24 18:30 FiO2 80 04/08/24 18:30 Narrative Exam GENERAL APPEARANCE: Well-developed, obese built female in mild distress. HEENT: Normocephalic, atraumatic, extraocular movements intact. Pupils: Equal reacting to light NECK: Supple, no JVD or bruits. CARDIOVASULAR: Heart: S1, S2 heard, regular without S3-S4 or murmur no rubs or gallops. LUNGS/CHEST: Clear to auscultation bilaterally. No rails, rhonchi, or wheezing. Normal inspection. ABDOMEN: Soft, nontender, with normal bowel sounds. No pulsatile masses. No rebound, rigidity, or guarding. Normal inspection and palpation. EXTREMITIES: Normal inspection and palpation. No edema, clubbing or cyanosis. SKIN: Warm and dry without rashes. Normal inspection. MUSCULOSKELETAL: No cervical, thoracic, lumbar or midline bony tenderness. Normal inspection. NEURO: Somnolent, not responsive to verbal commands, some intermittent purposeful movements noted in both upper and lower extremities. Facial myoclonic twitching in right hemiface noted. No signs of meningeal irritation noted. Rest of the exam limited secondary to mental status PSYCHIATRIC: Limited Constitutional Constitutional: no acute distress Objective Labs 04/09/24 04:25 04/09/24 04:25 Labs: Laboratory Results - last 24 hr 04/06/24 04/08/24 04/08/24 18:57 07:10 13:50 WBC 8.6 D RBC 2.90 L Hgb 8.1 L Hct 25.5 L MCV 88 MCH 27.9 MCHC 31.8 RDW Std Deviation 51.5 H Plt Count 243 Neut % (Auto) 85 H Lymph % (Auto) 11 [place] % (Auto) 2 Eos % (Auto) 1 Baso % (Auto) 0 Neut # (Auto) 7.3 Lymph # (Auto) 1.0 [place] # (Auto) 0.2 Eos # (Auto) 0.1 Baso # (Auto) 0.0 Immature Gran # (Auto) 0.07 H Absolute Nucleated RBC 0.00 Immature Gran % 1 H Neutrophils % (Manual) 54 Monocytes % (Manual) 3 Metamyelocytes % 1 H Myelocytes % 2 H Nucleated RBC % 0 Band Neutrophils 35 H Lymphocytes (Manual) 5 L Puncture Site ABG pH ABG pCO2 ABG pO2 ABG HCO3 ABG O2 Saturation ABG Base Excess FiO2 Sodium 138 Potassium 4.0 Chloride 100 Carbon Dioxide 24.5 Anion Gap 14 BUN 41 H Creatinine 4.4 H* D Estim Creat Clear Calc 13.8 L eGFR 11 L* BUN/Creatinine Ratio 9 L Glucose 318 H D Calculated Osmolality 297 H Calcium 8.1 L Corrected Calcium 8.6 Phosphorus 5.8 H Magnesium 2.2 Total Bilirubin 0.2 L AST 116 H ALT 25 Alkaline Phosphatase 95 Ammonia < 10 L Total Protein 6.5 Albumin 3.4 Globulin 3.1 Albumin/Globulin Ratio 1.1 L CSF Appearance CSF Color CSF WBC CSF RBC CSF Cell Count Tube # CSF Mononuclear WBCs CSF Polynuclear WBCs CSF Diff Comment CSF Glucose CSF Total Protein Coccidioides IgG Ab Negative 04/08/24 04/08/24 04/08/24 14:46 16:20 17:19 WBC RBC Hgb Hct MCV MCH MCHC RDW Std Deviation Plt Count Neut % (Auto) Lymph % (Auto) [place] % (Auto) Eos % (Auto) Baso % (Auto) Neut # (Auto) Lymph # (Auto) [place] # (Auto) Eos # (Auto) Baso # (Auto) Immature Gran # (Auto) Absolute Nucleated RBC Immature Gran % Neutrophils % (Manual) Monocytes % (Manual) Metamyelocytes % Myelocytes % Nucleated RBC % Band Neutrophils Lymphocytes (Manual) Puncture Site Right Radial Right Brachial Left Radial ABG pH 7.36 7.34 L 7.35 ABG pCO2 44 46 45 ABG pO2 40 L* D 36 L* 113 H D ABG HCO3 25 25 25 ABG O2 Saturation 71 L 63 L 97 ABG Base Excess -1 -1 -1 FiO2 80 80 80 Sodium Potassium Chloride Carbon Dioxide Anion Gap BUN Creatinine Estim Creat Clear Calc eGFR BUN/Creatinine Ratio Glucose Calculated Osmolality Calcium Corrected Calcium Phosphorus Magnesium Total Bilirubin AST ALT Alkaline Phosphatase Ammonia Total Protein Albumin Globulin Albumin/Globulin Ratio CSF Appearance CSF Color CSF WBC CSF RBC CSF Cell Count Tube # CSF Mononuclear WBCs CSF Polynuclear WBCs CSF Diff Comment CSF Glucose CSF Total Protein Coccidioides IgG Ab 04/08/24 18:00 WBC RBC Hgb Hct MCV MCH MCHC RDW Std Deviation Plt Count Neut % (Auto) Lymph % (Auto) [place] % (Auto) Eos % (Auto) Baso % (Auto) Neut # (Auto) Lymph # (Auto) [place] # (Auto) Eos # (Auto) Baso # (Auto) Immature Gran # (Auto) Absolute Nucleated RBC Immature Gran % Neutrophils % (Manual) Monocytes % (Manual) Metamyelocytes % Myelocytes % Nucleated RBC % Band Neutrophils Lymphocytes (Manual) Puncture Site ABG pH ABG pCO2 ABG pO2 ABG HCO3 ABG O2 Saturation ABG Base Excess FiO2 Sodium Potassium Chloride Carbon Dioxide Anion Gap BUN Creatinine Estim Creat Clear Calc eGFR BUN/Creatinine Ratio Glucose Calculated Osmolality Calcium Corrected Calcium Phosphorus Magnesium Total Bilirubin AST ALT Alkaline Phosphatase Ammonia Total Protein Albumin Globulin Albumin/Globulin Ratio CSF Appearance Clear CSF Color Colorless CSF WBC 4 CSF RBC 0 CSF Cell Count Tube # Tube # 4 CSF Mononuclear WBCs 75.0 CSF Polynuclear WBCs 3 CSF Diff Comment 27 CSF Glucose 148 H CSF Total Protein 54 H Coccidioides IgG Ab ABG Interpretation ABG results: 04/05/24 04/06/24 04/06/24 13:11 05:17 13:37 ABG pH 7.23 L 7.23 L ABG pCO2 39 31 L ABG pO2 54 L* 70 L ABG HCO3 16 L 13 L ABG O2 Saturation 86 L 92 ABG Base Excess -11 L -13 L VBG pH 7.23 L VBG pCO2 34 L VBG pO2 35 VBG Base Excess -13 L 04/06/24 04/07/24 04/08/24 16:56 12:14 14:46 ABG pH 7.42 D 7.39 7.36 ABG pCO2 35 40 44 ABG pO2 69 L 79 L 40 L* D ABG HCO3 23 24 25 ABG O2 Saturation 94 94 71 L ABG Base Excess -2 -1 -1 VBG pH VBG pCO2 VBG pO2 VBG Base Excess 04/08/24 04/08/24 16:20 17:19 ABG pH 7.34 L 7.35 ABG pCO2 46 45 ABG pO2 36 L* 113 H D ABG HCO3 25 25 ABG O2 Saturation 63 L 97 ABG Base Excess -1 -1 VBG pH VBG pCO2 VBG pO2 VBG Base Excess Assessment & Plan Assessment and plan (1) Altered mental status: Status: Acute Assessment and plan: Repeat CT head was performed yesterday showed negative for ischemia/ acute infarction Follow-up with the brain MRI and EEG and CSF analysis to evaluate further. 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 Will consider starting her on IV high-dose steroids: 1 g once a day for 5 days with strict blood sugar control. (2) ANA LAURA (acute kidney injury): Status: Acute Assessment and plan: Kidney function is improving slowly
--- NOTE | 2024-04-08 22:35 | PD.EVENT ---
Documentation for date of: 04/08/24 Date of procedure: 04/08/24 Pre-op diagnosis: Encephalopathy Post-op diagnosis: Same Consent signed by: Daughter Position: lateral decubitus Prep: betadine Anesthesia: 2% Lidocaine Needle size: 22ga Needle length: 3.5 Interspace: L3-4 Number of attempts: 2 Opening pressure: # cm H2O (33) Fluids mLs collected: 15 Fluid description: clear Complications: No Procedure performed by: Jaquan Bertrand Condition: Stable Disposition: no change
[2024-04-08] MEDS: LORazepam 2 MG/ML VIAL IVP (23:16)
[2024-04-09] VITALS (36 sets, daily range): BP systolic 102–186; BP diastolic 44–89; PULSE 68–103; RESP 12–36; TEMP 36.3–36.9; O2SAT 84–100; BMI 42.7
[2024-04-09] MEDS: INSULIN LISPRO (AdmeLOG) 1 UNIT/0.01 ML UNIT SC ×5 (00:30→23:55)
--- NOTE | 2024-04-09 00:51 | RESP.EEG ---
EEG has been completed and is ready for MD interpretation
[2024-04-09] MEDS: ALBUTEROL/IPRATROPIUM (Duoneb) RT SOL 3 ML NEBU INH ×4 (01:35→19:00)
[2024-04-09 04:40] LABS: Basophils % (Auto) 0 % (0-2.5); Eosinophils # (Auto) 0.1 Thou/mm3 (0.0-0.5); Eosinophils % (Auto) 1 % (0-10); Hematocrit 25.7 % (36.0-46.0); Immature Granulocytes % (Auto) 1 % (0-0); Immature Granulocytes Auto 0.07 Thou/mm3 (0.00-0.00); Lymphocytes # (Auto) 1.1 Thou/mm3 (1.0-4.8); Lymphocytes % (Auto) 14 % (10-50); Mean Corpuscular HGB Conc 31.5 g/dl (31.0-37.0); Mean Corpuscular Hemoglobin 28.3 pg (25.0-35.0); Mean Corpuscular Volume 90 fL (80-100); Monocytes # (Auto) 0.3 Thou/mm3 (0.0-0.8); Monocytes % (Auto) 4 % (0-12); Neutrophils # (Auto) 6.1 Thou/mm3 (1.8-7.7); Neutrophils % (Auto) 79 % (37-80); Nucleated Red Blood Cell # 0.02 Thou/mm3 (0.00-0.00); Nucleated Red Blood Cell % 0 /100 WBC (0); Platelet Count 247 Thou/mm3 (140-440); RDW Standard Deviation 52.8 fL (36.4-46.3); Red Blood Count 2.86 Miln/mm3 (4.00-5.20); White Blood Count 7.7 Thou/mm3 (3.6-11.0)
[2024-04-09 04:45] LABS: Hemoglobin 8.1 g/dL (12.0-16.0)
[2024-04-09 05:06] LABS: Alanine Aminotransferase 23 U/L (10-49); Albumin, Serum 3.7 gm/dL (3.4-4.8); Albumin/Globulin Ratio 1.2 (1.2-2.2); Alkaline Phosphatase 94 U/L (46-116); Anion Gap 12 (7-16); Aspartate Amino Transferase 78 U/L (0-34); BUN/Creatinine Ratio 7 Ratio (12-20); Bilirubin,Total 0.3 mg/dL (0.3-1.2); Blood Urea Nitrogen 26 mg/dL (9-23); Calcium (Corrected) 9.2 mg/dL (8.5-10.1); Carbon Dioxide 26.9 mMol/L (20.0-31.0); Chloride 99 mMol/L (98-107); Creatinine (Component) 3.7 mg/dL (0.6-1.3); Estimated Creatinine Clearance 16.4 mL/min (>60); Globulin 3.1 gm/dL (2.3-3.5); Glucose 268 mg/dL (74-106); Magnesium 2.2 mg/dL (1.6-2.6); Osmolality,Calculated 289 (275-295); Phosphorous 5.6 mg/dL (2.4-5.1); Sodium 138 mMol/L (136-145); Total Protein 6.8 gm/dL (5.7-8.2); eGFR 13 See Note
[2024-04-09] MEDS: VALPROATE SOD INJ 750 MG in SODIUM CHLORIDE 0.9% 50 ML 55 MG IV ×3 (06:17→22:09)
[2024-04-09] MEDS: PANTOPRAZOLE INJ 40 MG VIAL IVP (09:05)
[2024-04-09] MEDS: CEFEPIME INJ 2 GM in SODIUM CHLORIDE 0.9% 50 ML IV (09:06)
[2024-04-09] MEDS: ASPIRIN 300 MG SUPP PR (09:06)
[2024-04-09] MEDS: DOXYCYCLINE INJ 100 MG in SODIUM CHLORIDE 0.9% (P) 100 ML IV ×2 (09:11→22:08)
[2024-04-09] MEDS: HEPARIN SOD INJ 5000 UNIT/ML VIAL SC ×3 (09:12→22:10)
[2024-04-09] MEDS: INSULIN GLARGINE (Lantus) 5 UNIT/0.05 ML (PER 5 UNITS) 10 UNIT SC (09:15)
--- NOTE | 2024-04-09 10:13 | ESPR_ITS ---
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 Stroke alert was called, and underwent stroke workup. tPA not given due to out of window. On further interviewing, she reported that she has been taking some penicillin that was brought from [place] of long time ago. She also took Motrin x 2 in last 2 days. She admitted having fever, denied any chills, lightheadedness, chest pain, and any flank pain. Her vitals are fairly stable, hemoglobin 9.1, ABG significant for pH 7.23, pCO2 39, pO2 70. Chemistry panel revealed sodium 133, mild hyperkalemia, bicarb 15.1. BUN 66, creatinine 5.9, EGFR 7. Baseline creatinine is 1.6 with EGFR 56. Triglyceride 493, cholesterol 191, HDL 30 with normal TSH and T4. Hepatitis panel negative. CT head negative for midline shift, acute hemorrhage or mass effect. Pending carotid US, and brain MRI. CXR with mild congestion and superimposed pneumonia. CT abdomen pelvis revealed significant hepatomegaly, moderate bilateral renal parenchymal scarring, 10 mm and 14 mm renal calculi on the left, cystitis pattern, no hydronephrosis or bowel obstruction. PMH: As mentioned above Social history: Denies alcohol, smoking or any illicit drug use Allergies: No known allergies 04/07/2024: The patient was interviewed and examined at the bedside. She was saturating 93% on BiPAP, with FiO2 40% and O2 flow 30 L. Chemistry panel revealed BUN 52, creatinine 4.9, EGFR 9, blood sugar 279, calcium 8.1 and phosphorus 6.0. The patient will get second session of hemodialysis this morning. Urine random creatinine 113, protein 598, sodium 42, potassium 33, chloride 27, urea nitrogen 302. Renal ultrasound significant for moderate bilateral renal parenchymal eschar formation, bilateral renal cortical thinning with no hydronephrosis. 04/08/2024: The patient was examined at the bedside this morning. She reported having difficulty breathing. She was upgraded to ICU. She was saturating 92% on BiPAP. Other vitals were fairly stable. Physical examination was significant for distant breath sounds, and bibasilar crackles. Labs were significant for hemoglobin trending down to 8.1 likely dilutional, BUN 41 and creatinine 4.4, phosphorus 5.8. Ordered ZAINAB screen, ANCA, antiproteinase 3, antimyeloperoxidase and complement level. 04/09/2025: The patient was at the bedside this morning again. She was difficult to arouse and was reacting to painful stimulus. Her vitals were stable saturating 97% on high flow NC with FiO2 80%. The patient underwent hemodialysis yesterday with removal of 3 L fluid and was hypotensive after that. BUN And creatinine improving to 26 and 3.7 respectively. Phosphorus 5.6 less than 10. We will hold off today and proceed with morning. Exam Vital Signs Temp Pulse Resp BP Pulse Ox O2 Del Method O2 Flow Rate 97.8 F 72 13 127/54 L 97 High Flow Nasal Cannula 30 04/09/24 04:01 04/09/24 08:02 04/09/24 08:02 04/09/24 07:00 04/09/24 08:02 04/08/24 16:02 04/09/24 08:02 FiO2 80 04/09/24 08:02 Narrative Exam General: No acute distress, alert and oriented to herself and family members only HEENT: Moist mucous membranes, oropharynx clear Neck: Supple, No masses, No JVD CVS: S1S2 Regular rate and rhythm, No murmurs, rubs or gallops Lungs: Distant breath sounds, bibasilar crackles, no wheeze no rhonchi Abd: Soft, NT/ND, +BS, no organomegaly Ext: 1+ bilateral lower limb edema, warm and well perfused, peripheral arteries barely palpable Skin: No rash Psych: Unobtainable Objective Labs 04/09/24 04:25 04/09/24 14:51 Labs: Laboratory Results - last 24 hr 04/06/24 04/08/24 04/08/24 18:57 07:10 13:50 WBC RBC Hgb Hct MCV MCH MCHC RDW Std Deviation Plt Count Neut % (Auto) Lymph % (Auto) [place] % (Auto) Eos % (Auto) Baso % (Auto) Neut # (Auto) Lymph # (Auto) [place] # (Auto) Eos # (Auto) Baso # (Auto) Immature Gran # (Auto) Absolute Nucleated RBC Immature Gran % Neutrophils % (Manual) 54 Monocytes % (Manual) 3 Metamyelocytes % 1 H Myelocytes % 2 H Nucleated RBC % Band Neutrophils 35 H Lymphocytes (Manual) 5 L Puncture Site ABG pH ABG pCO2 ABG pO2 ABG HCO3 ABG O2 Saturation ABG Base Excess FiO2 Sodium Potassium Chloride Carbon Dioxide Anion Gap BUN Creatinine Estim Creat Clear Calc eGFR BUN/Creatinine Ratio Glucose Calculated Osmolality Calcium Corrected Calcium Phosphorus Magnesium Total Bilirubin AST ALT Alkaline Phosphatase Ammonia < 10 L Total Protein Albumin Globulin Albumin/Globulin Ratio CSF Appearance CSF Color CSF WBC CSF RBC CSF Cell Count Tube # CSF Mononuclear WBCs CSF Polynuclear WBCs CSF Diff Comment CSF Glucose CSF Total Protein Coccidioides IgG Ab Negative Misc Test Result 04/08/24 04/08/24 04/08/24 14:46 16:20 17:19 WBC RBC Hgb Hct MCV MCH MCHC RDW Std Deviation Plt Count Neut % (Auto) Lymph % (Auto) [place] % (Auto) Eos % (Auto) Baso % (Auto) Neut # (Auto) Lymph # (Auto) [place] # (Auto) Eos # (Auto) Baso # (Auto) Immature Gran # (Auto) Absolute Nucleated RBC Immature Gran % Neutrophils % (Manual) Monocytes % (Manual) Metamyelocytes % Myelocytes % Nucleated RBC % Band Neutrophils Lymphocytes (Manual) Puncture Site Right Radial Right Brachial Left Radial ABG pH 7.36 7.34 L 7.35 ABG pCO2 44 46 45 ABG pO2 40 L* D 36 L* 113 H D ABG HCO3 25 25 25 ABG O2 Saturation 71 L 63 L 97 ABG Base Excess -1 -1 -1 FiO2 80 80 80 Sodium Potassium Chloride Carbon Dioxide Anion Gap BUN Creatinine Estim Creat Clear Calc eGFR BUN/Creatinine Ratio Glucose Calculated Osmolality Calcium Corrected Calcium Phosphorus Magnesium Total Bilirubin AST ALT Alkaline Phosphatase Ammonia Total Protein Albumin Globulin Albumin/Globulin Ratio CSF Appearance CSF Color CSF WBC CSF RBC CSF Cell Count Tube # CSF Mononuclear WBCs CSF Polynuclear WBCs CSF Diff Comment CSF Glucose CSF Total Protein Coccidioides IgG Ab Misc Test Result 04/08/24 04/08/24 04/08/24 18:00 18:00 18:00 WBC RBC Hgb Hct MCV MCH MCHC RDW Std Deviation Plt Count Neut % (Auto) Lymph % (Auto) [place] % (Auto) Eos % (Auto) Baso % (Auto) Neut # (Auto) Lymph # (Auto) [place] # (Auto) Eos # (Auto) Baso # (Auto) Immature Gran # (Auto) Absolute Nucleated RBC Immature Gran % Neutrophils % (Manual) Monocytes % (Manual) Metamyelocytes % Myelocytes % Nucleated RBC % Band Neutrophils Lymphocytes (Manual) Puncture Site ABG pH ABG pCO2 ABG pO2 ABG HCO3 ABG O2 Saturation ABG Base Excess FiO2 Sodium Potassium Chloride Carbon Dioxide Anion Gap BUN Creatinine Estim Creat Clear Calc eGFR BUN/Creatinine Ratio Glucose Calculated Osmolality Calcium Corrected Calcium Phosphorus Magnesium Total Bilirubin AST ALT Alkaline Phosphatase Ammonia Total Protein Albumin Globulin Albumin/Globulin Ratio CSF Appearance Clear CSF Color Colorless CSF WBC 4 CSF RBC 0 CSF Cell Count Tube # Tube # 4 CSF Mononuclear WBCs 75.0 CSF Polynuclear WBCs 3 CSF Diff Comment 27 CSF Glucose 148 H CSF Total Protein 54 H Coccidioides IgG Ab Misc Test Result Cancelled Cancelled Cancelled 04/09/24 04:25 WBC 7.7 RBC 2.86 L Hgb 8.1 L Hct 25.7 L MCV 90 MCH 28.3 MCHC 31.5 RDW Std Deviation 52.8 H Plt Count 247 Neut % (Auto) 79 Lymph % (Auto) 14 [place] % (Auto) 4 Eos % (Auto) 1 Baso % (Auto) 0 Neut # (Auto) 6.1 Lymph # (Auto) 1.1 [place] # (Auto) 0.3 Eos # (Auto) 0.1 Baso # (Auto) 0.0 Immature Gran # (Auto) 0.07 H Absolute Nucleated RBC 0.02 H Immature Gran % 1 H Neutrophils % (Manual) Monocytes % (Manual) Metamyelocytes % Myelocytes % Nucleated RBC % 0 Band Neutrophils Lymphocytes (Manual) Puncture Site ABG pH ABG pCO2 ABG pO2 ABG HCO3 ABG O2 Saturation ABG Base Excess FiO2 Sodium 138 Potassium 4.0 Chloride 99 Carbon Dioxide 26.9 Anion Gap 12 BUN 26 H Creatinine 3.7 H D Estim Creat Clear Calc 16.4 L eGFR 13 L* BUN/Creatinine Ratio 7 L Glucose 268 H D Calculated Osmolality 289 Calcium 9.0 Corrected Calcium 9.2 Phosphorus 5.6 H Magnesium 2.2 Total Bilirubin 0.3 AST 78 H ALT 23 Alkaline Phosphatase 94 Ammonia Total Protein 6.8 Albumin 3.7 Globulin 3.1 Albumin/Globulin Ratio 1.2 CSF Appearance CSF Color CSF WBC CSF RBC CSF Cell Count Tube # CSF Mononuclear WBCs CSF Polynuclear WBCs CSF Diff Comment CSF Glucose CSF Total Protein Coccidioides IgG Ab Misc Test Result ABG Interpretation ABG results: 04/05/24 04/06/24 04/06/24 13:11 05:17 13:37 ABG pH 7.23 L 7.23 L ABG pCO2 39 31 L ABG pO2 54 L* 70 L ABG HCO3 16 L 13 L ABG O2 Saturation 86 L 92 ABG Base Excess -11 L -13 L VBG pH 7.23 L VBG pCO2 34 L VBG pO2 35 VBG Base Excess -13 L 04/06/24 04/07/24 04/08/24 16:56 12:14 14:46 ABG pH 7.42 D 7.39 7.36 ABG pCO2 35 40 44 ABG pO2 69 L 79 L 40 L* D ABG HCO3 23 24 25 ABG O2 Saturation 94 94 71 L ABG Base Excess -2 -1 -1 VBG pH VBG pCO2 VBG pO2 VBG Base Excess 04/08/24 04/08/24 16:20 17:19 ABG pH 7.34 L 7.35 ABG pCO2 46 45 ABG pO2 36 L* 113 H D ABG HCO3 25 25 ABG O2 Saturation 63 L 97 ABG Base Excess -1 -1 VBG pH VBG pCO2 VBG pO2 VBG Base Excess Quality Measures Quality Measures VTE prophylaxis Advance care planning discussed with:: other Assessment & Plan Assessment Current Active Medications: Generic Name Dose Route Start Last Admin Trade Name Freq PRN Reason Stop Dose Admin Acetaminophen 650 mg 04/05/24 23:06 Acetaminophen 325 Mg Tablet PO 05/05/24 23:05 Q6H PRN PAIN SCALE 1-3 (mild Acetaminophen 650 mg 04/05/24 23:06 Acetaminophen 325 Mg Tablet PO 05/05/24 23:05 Q6H PRN Fever >100 Hydrocodone Bitart/Acetaminophen 1 tab 04/05/24 23:06 Hydrocodone/Apap 10/325 Tab PO 04/10/24 23:05 Q4HR PRN PAIN SCALE 7-10 (Severe Albuterol/Ipratropium 3 ml 04/06/24 01:00 04/09/24 08:00 Albuterol/Ipratropium (Duoneb) Rt Princess 3 Ml Nebu INH 05/06/24 00:59 3 ml Q6HRRT DELMY Administration Aspirin 300 mg 04/06/24 12:15 04/09/24 09:06 Aspirin 300 Mg Supp AK 05/06/24 12:14 300 mg QDAY DELMY Administration Atorvastatin Calcium 80 mg 04/06/24 21:00 04/08/24 20:06 Atorvastatin Calcium 20 Mg Tablet PO 05/06/24 20:59 Not Given HS DELMY Calcium Carbonate 600 mg 04/06/24 14:45 04/09/24 09:06 Calcium Carbonate 600 Mg Tablet PO 05/06/24 14:44 Not Given BID DELMY Dextrose 25 ml 04/07/24 10:52 Dextrose 50%-Water Inj 50 Ml Syringe IV 05/07/24 10:51 Q15MIN PRN BG 50-70 responsive npo pt Dextrose 50 ml 04/07/24 10:52 Dextrose 50%-Water Inj 50 Ml Syringe IV 05/07/24 10:51 Q15MIN PRN BG <50 OR BG <70 & pt unresponsive Glucagon 1 mg 04/07/24 10:52 Glucagon Inj 1 Mg Vial IM Q15MIN PRN BG <70, and no IV access Heparin Sodium (Porcine) 3,300 unit 04/06/24 15:03 04/08/24 13:05 Heparin Sod Inj 1000 Unit/Ml Vial 10 Ml INDWELLCAT 04/20/24 15:02 3,300 unit PRN PRN Administration DIALYSIS Heparin Sodium (Porcine) 5,000 unit 04/09/24 08:00 04/09/24 09:12 Heparin Sod Inj 5000 Unit/Ml Vial SC 04/23/24 07:59 5,000 unit Q8HR DELMY Administration Albumin Human 25 gm in 100 mls @ 100 mls/min 04/06/24 08:27 04/08/24 10:03 Albuminar-25 Ivpb IV 100 mls/min PRN PRN Administration DIALYSIS Cefepime HCl 2 gm/ Sodium 50 mls @ 100 mls/hr 04/08/24 09:00 04/09/24 09:06 Chloride IV 04/15/24 08:59 100 mls/hr QDAY DELMY Administration Dexmedetomidine/Sodium Chloride 200 mcg in 50 mls @ 5.31 mls/hr 04/08/24 09:17 Precedex Ivpb IV 05/08/24 09:16 .Q9H25M PRN Per PROTOCOL Protocol 0.2 MCG/KG/HR Norepinephrine/Dextrose 8 mg in 250 mls @ 9.956 mls/hr 04/08/24 09:53 04/08/24 18:24 Levophed In D5w 8mg/250ml IV 05/08/24 09:52 0 mcg/kg/min .Q24H PRN 0 mls/hr PER PROTOCOL Titration Protocol 0.05 MCG/KG/MIN Doxycycline Hyclate 100 mg/ 100 mls @ 100 mls/hr 04/08/24 13:30 04/09/24 09:11 Sodium Chloride IV 04/13/24 20:59 100 mls/hr BID DELMY Administration Valproic Acid 750 mg/ Sodium 57.5 mls @ 55 mls/hr 04/08/24 22:00 04/09/24 06:17 Chloride IV 05/08/24 21:59 55 mls/hr Q8HR DELMY Administration Insulin Glargine 10 unit 04/09/24 09:00 04/09/24 09:15 Insulin Glargine (Lantus) 5 Unit/0.05 Ml (Per 5 Units) SC 05/09/24 08:59 10 unit QAM DELMY Administration Insulin Human Lispro 0 unit 04/07/24 12:00 04/09/24 06:17 Insulin Lispro (Admelog) 1 Unit/0.01 Ml Unit SC 05/07/24 11:59 2 unit Q6HR DELMY Administration Protocol Labetalol HCl 10 mg 04/05/24 23:55 Labetalol Inj 5 Mg/Ml Vial 20 Ml IVP 05/05/24 23:54 X1 PRN BP >220/110 Lidocaine HCl 9 ml 04/06/24 11:00 Lidocaine Inj Pf 1% 5 Ml Vial INFL X1 PRN LOCAL ANESTHESIA Protocol Ondansetron HCl 4 mg 04/05/24 23:06 Ondansetron Inj 2 Mg/Ml Inj 2 Ml IV 05/05/24 23:05 Q6H PRN NAUSEA OR VOMITING Protocol Oxycodone/Acetaminophen 1 tab 04/05/24 23:06 Oxycodone/Apap 5/325 Tablet PO 04/10/24 23:05 Q6H PRN PAIN SCALE 4-6 (Moderate Pantoprazole Sodium 40 mg 04/06/24 09:00 04/09/24 09:05 Pantoprazole Inj 40 Mg Vial IVP 05/06/24 08:59 40 mg QDAY DELMY Administration Pharmacy Consult 1 each 04/09/24 08:54 Pharmacy Renal Dose Adjustment 1 Ea XX 05/08/24 08:59 QDAY PRN protocol Plan The patient is a 64-year-old female with significant past medical history of 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 Stroke alert was called, and underwent stroke workup. tPA not given due to out of window. On further interviewing, she reported that she has been taking some penicillin that was brought from [place] of long time ago. She also took Motrin x 2 in last 2 days. She admitted having fever, denied any chills, lightheadedness, chest pain, and any flank pain. Nephrology consultation was done for further management of ANA LAURA in CKD stage IIIa. 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 On admission, creatinine 5.9 and GFR 7. On admission ABG significant for acidemia with pH 7.23, pCO2 39, pO2 70. Chemistry panel revealed sodium 133, mild hyperkalemia, bicarb 15.1. ABG significant for pH 7.42 revealing improvement in acidemia, BUN 52, creatinine 4.9, EGFR 9, calcium 8.1, phosphorus 6.0. Urine electrolytes with creatinine 113, total protein 598, sodium 42 (>40 suggestive of ATN), potassium 33, chloride 27, and urea nitrogen 302. BUN/CR ratio <20 so less likely prerenal. Renal ultrasound significant for moderate bilateral renal parenchymal eschar formation, bilateral renal cortical thinning with no hydronephrosis. -Stop the offending agent, penicillin which is likely cause of possible ATN 04/08/2024: Labs were significant for hemoglobin trending down to 8.1 likely dilutional, BUN 41 and creatinine 4.4, phosphorus 5.8. Ordered ZAINAB screen, ANCA, antiproteinase 3, antimyeloperoxidase and complement level, and we will plan for renal biopsy if ANA LAURA doesn't resolve in a couple of days. -Continue to monitor renal panel -Patient will undergo 3.5 hours hemodialysis session x 1 this morning again, and we will plan for 3 L ultrafiltration goal. -Can consider trying bumex 1-2mg x1 to increase urine output. #Hypocalcemia, improved 2/2 #Hyperphosphatemia -Improving Secondary to ANA LAURA on CKD -Started on calcium carbonate 600 Mg twice daily -We will get phosphorus level tomorrow morning again after HD as after hemodialysis it significantly improved to 6.0, we will hold on sevelamer. -Continue to monitor renal panel #Hypertensive emergency, resolved -Awaiting MRI brain #Acute encephalopathy #Stroke rule out #Hx of CVA 2019 #Acute nephrolithiasis #Hx of renal calculi #Acute hypoxemic respiratory failure #Community-acquired pneumonia #GEMMA/OHS on oxygen HS #NSTEMI type II (improving) #HTN, HLD #IDDM type II -Management deferred to primary hospitalist team. Thank you for your opportunity to participate nephrology team in this patient care. The patient's management plan was discussed with my attending physician MD Jose Serrano MD, PGY2 Attending Provider Attestation/Addendum Patient seen and examined with resident physician Dr. Nesbitt. Note reviewed, agree with findings and recommendations. Patient currently in ICU. On BiPAP. Hold dialysis today. Did had a rough for dialysis yesterday with hypotension after 3 L was removed. Clinically seems to be hypervolemic. Dose of Bumex will be given. Critical care time more than 35 minutes regarding plan of care and disease management. Labs/medications reviewed. Plan of care discussed with ICU team.
--- NOTE | 2024-04-09 10:13 | XR_ITS ---
Examination: AP chest single view Technique one AP portable semiupright chest single view Exam date and time: April 09, 2024 1045 hours Comparison compared with 2024 INDICATIONS: Shortness of breath this week. FINDINGS: Extensive bilateral lung opacity Mild enlargement cardiac contour with prominent vascular congestion Right internal jugular dialysis catheter satisfactory position IMPRESSION: Extensive bilateral pneumonia Mild associated heart failure
--- NOTE | 2024-04-09 10:58 | PD.RESPRO ---
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 Upon arrival to the ED, stroke alert was called. CT head negative, however patient was outside of TNK window. MRI brain recommended but given that patient continues to have altered mental status and cannot follow commands in addition to requiring HFNC, will not be able to obtain. Echo obtained on 04/05, negative bubble study and EF 55 to 60%. Carotid Doppler was poor study due to lack of patient cooperation. Labs obtained in ED showed creatinine of 5.4, which is significantly elevated from baseline of 1.0. Thus, TDC was placed and patient has since received 2 dialysis sessions (04/06, 04/07), however has not had any improvement in her mental status. Throughout hospital course, patient has had 3 rapid responses. On 04/06 rapid response for fever of 103 ?F, 04/07 for episode of twitching on right side of face, and again on 04/07 for episode of apnea for few seconds after dose of lorazepam. ICU was consulted given that patient has had increased oxygen requirements and altered mental status and evaluated if patient will require closer monitoring to protect her airways. 04/08: No acute overnight events reported. She was noted to have increased oxygen requirements after coming back from repeat CT head. She was originally on HFNC at 30 L/min, 50% FiO2 and is currently on 30 L/min and now 80% FiO2. Repeat CT head showed no gross hemorrhage or mass effect but patient motion is significantly degraded image quality. Patient noted to have less spontaneous movements compared to yesterday and contacted MRI regarding possibility of obtaining imaging. However, they will not be able to accommodate patients on high flow nor on BiPAP. Underwent third session of hemodialysis today, with removal of 3 L of fluid. Blood pressure dropped to 86/48 and was given Levophed. 04/09: No acute overnight events reported. Only had 30 cc of urine output the entire shift, 2.5 cc/h. Did not require Levophed or Precedex. Underwent lumbar puncture and evening of 04/08, noted to have opening pressure at 33 cm H2O and elevated protein and glucose. Also had an EEG that showed diffuse slowing, suggestive of diffuse encephalopathy of metabolic versus degenerative versus vascular origin. No epileptic waveforms noted but given that patient's right sided facial twitching and spontaneous movements have improved, will continue with valproate per recs. Neurology also recommended starting 1 g Solu-Medrol daily. Oxygen needs decreased from HFNC to oxy mask, and again attempted to obtain MRI but were unable due to oxy mask and body habitus. NG tube placed to start feeds given the patient has been n.p.o. since admission and will increase glargine from 10 to 15 units to accommodate. Exam Vital Signs Temp Pulse Resp BP Pulse Ox O2 Del Method O2 Flow Rate 97.8 F 88 13 127/54 L 94 L High Flow Nasal Cannula 15 04/09/24 04:01 04/09/24 10:10 04/09/24 10:10 04/09/24 07:00 04/09/24 10:10 04/08/24 16:02 04/09/24 10:10 FiO2 80 04/09/24 08:02 Narrative Exam General: obese, not able to follow commands, decreased spontaneous movements and R-sided facial twitching HEENT: NC/AT, mucous membranes moist, diaphoretic Cardiovascular: regular rate and rhythm, S1/S2 present, no murmurs appreciated Pulmonary: bibasilar crackles Abdominal: obese/distended, soft, no guarding Musculoskeletal: no peripheral edema, peripheral pulses 2+ Skin: R open wound on right neck above medial clavicle with overlying tagiderm Neuro: unable to follow commands, GCS 10 Objective Labs 04/12/24 04:23 04/12/24 04:23 Labs: Laboratory Results - last 24 hr 04/06/24 04/08/24 04/08/24 18:57 07:10 13:50 WBC RBC Hgb Hct MCV MCH MCHC RDW Std Deviation Plt Count Neut % (Auto) Lymph % (Auto) [place] % (Auto) Eos % (Auto) Baso % (Auto) Neut # (Auto) Lymph # (Auto) [place] # (Auto) Eos # (Auto) Baso # (Auto) Immature Gran # (Auto) Absolute Nucleated RBC Immature Gran % Neutrophils % (Manual) 54 Monocytes % (Manual) 3 Metamyelocytes % 1 H Myelocytes % 2 H Nucleated RBC % Band Neutrophils 35 H Lymphocytes (Manual) 5 L Puncture Site ABG pH ABG pCO2 ABG pO2 ABG HCO3 ABG O2 Saturation ABG Base Excess FiO2 Sodium Potassium Chloride Carbon Dioxide Anion Gap BUN Creatinine Estim Creat Clear Calc eGFR BUN/Creatinine Ratio Glucose Calculated Osmolality Calcium Corrected Calcium Phosphorus Magnesium Total Bilirubin AST ALT Alkaline Phosphatase Ammonia < 10 L Total Protein Albumin Globulin Albumin/Globulin Ratio CSF Appearance CSF Color CSF WBC CSF RBC CSF Cell Count Tube # CSF Mononuclear WBCs CSF Polynuclear WBCs CSF Diff Comment CSF Glucose CSF Total Protein Coccidioides IgG Ab Negative Misc Test Result 04/08/24 04/08/24 04/08/24 14:46 16:20 17:19 WBC RBC Hgb Hct MCV MCH MCHC RDW Std Deviation Plt Count Neut % (Auto) Lymph % (Auto) [place] % (Auto) Eos % (Auto) Baso % (Auto) Neut # (Auto) Lymph # (Auto) [place] # (Auto) Eos # (Auto) Baso # (Auto) Immature Gran # (Auto) Absolute Nucleated RBC Immature Gran % Neutrophils % (Manual) Monocytes % (Manual) Metamyelocytes % Myelocytes % Nucleated RBC % Band Neutrophils Lymphocytes (Manual) Puncture Site Right Radial Right Brachial Left Radial ABG pH 7.36 7.34 L 7.35 ABG pCO2 44 46 45 ABG pO2 40 L* D 36 L* 113 H D ABG HCO3 25 25 25 ABG O2 Saturation 71 L 63 L 97 ABG Base Excess -1 -1 -1 FiO2 80 80 80 Sodium Potassium Chloride Carbon Dioxide Anion Gap BUN Creatinine Estim Creat Clear Calc eGFR BUN/Creatinine Ratio Glucose Calculated Osmolality Calcium Corrected Calcium Phosphorus Magnesium Total Bilirubin AST ALT Alkaline Phosphatase Ammonia Total Protein Albumin Globulin Albumin/Globulin Ratio CSF Appearance CSF Color CSF WBC CSF RBC CSF Cell Count Tube # CSF Mononuclear WBCs CSF Polynuclear WBCs CSF Diff Comment CSF Glucose CSF Total Protein Coccidioides IgG Ab Misc Test Result 04/08/24 04/08/24 04/08/24 18:00 18:00 18:00 WBC RBC Hgb Hct MCV MCH MCHC RDW Std Deviation Plt Count Neut % (Auto) Lymph % (Auto) [place] % (Auto) Eos % (Auto) Baso % (Auto) Neut # (Auto) Lymph # (Auto) [place] # (Auto) Eos # (Auto) Baso # (Auto) Immature Gran # (Auto) Absolute Nucleated RBC Immature Gran % Neutrophils % (Manual) Monocytes % (Manual) Metamyelocytes % Myelocytes % Nucleated RBC % Band Neutrophils Lymphocytes (Manual) Puncture Site ABG pH ABG pCO2 ABG pO2 ABG HCO3 ABG O2 Saturation ABG Base Excess FiO2 Sodium Potassium Chloride Carbon Dioxide Anion Gap BUN Creatinine Estim Creat Clear Calc eGFR BUN/Creatinine Ratio Glucose Calculated Osmolality Calcium Corrected Calcium Phosphorus Magnesium Total Bilirubin AST ALT Alkaline Phosphatase Ammonia Total Protein Albumin Globulin Albumin/Globulin Ratio CSF Appearance Clear CSF Color Colorless CSF WBC 4 CSF RBC 0 CSF Cell Count Tube # Tube # 4 CSF Mononuclear WBCs 75.0 CSF Polynuclear WBCs 3 CSF Diff Comment 27 CSF Glucose 148 H CSF Total Protein 54 H Coccidioides IgG Ab Misc Test Result Cancelled Cancelled Cancelled 04/09/24 04:25 WBC 7.7 RBC 2.86 L Hgb 8.1 L Hct 25.7 L MCV 90 MCH 28.3 MCHC 31.5 RDW Std Deviation 52.8 H Plt Count 247 Neut % (Auto) 79 Lymph % (Auto) 14 [place] % (Auto) 4 Eos % (Auto) 1 Baso % (Auto) 0 Neut # (Auto) 6.1 Lymph # (Auto) 1.1 [place] # (Auto) 0.3 Eos # (Auto) 0.1 Baso # (Auto) 0.0 Immature Gran # (Auto) 0.07 H Absolute Nucleated RBC 0.02 H Immature Gran % 1 H Neutrophils % (Manual) Monocytes % (Manual) Metamyelocytes % Myelocytes % Nucleated RBC % 0 Band Neutrophils Lymphocytes (Manual) Puncture Site ABG pH ABG pCO2 ABG pO2 ABG HCO3 ABG O2 Saturation ABG Base Excess FiO2 Sodium 138 Potassium 4.0 Chloride 99 Carbon Dioxide 26.9 Anion Gap 12 BUN 26 H Creatinine 3.7 H D Estim Creat Clear Calc 16.4 L eGFR 13 L* BUN/Creatinine Ratio 7 L Glucose 268 H D Calculated Osmolality 289 Calcium 9.0 Corrected Calcium 9.2 Phosphorus 5.6 H Magnesium 2.2 Total Bilirubin 0.3 AST 78 H ALT 23 Alkaline Phosphatase 94 Ammonia Total Protein 6.8 Albumin 3.7 Globulin 3.1 Albumin/Globulin Ratio 1.2 CSF Appearance CSF Color CSF WBC CSF RBC CSF Cell Count Tube # CSF Mononuclear WBCs CSF Polynuclear WBCs CSF Diff Comment CSF Glucose CSF Total Protein Coccidioides IgG Ab Misc Test Result ABG Interpretation ABG results: 04/05/24 04/06/24 04/06/24 13:11 05:17 13:37 ABG pH 7.23 L 7.23 L ABG pCO2 39 31 L ABG pO2 54 L* 70 L ABG HCO3 16 L 13 L ABG O2 Saturation 86 L 92 ABG Base Excess -11 L -13 L VBG pH 7.23 L VBG pCO2 34 L VBG pO2 35 VBG Base Excess -13 L 04/06/24 04/07/24 04/08/24 16:56 12:14 14:46 ABG pH 7.42 D 7.39 7.36 ABG pCO2 35 40 44 ABG pO2 69 L 79 L 40 L* D ABG HCO3 23 24 25 ABG O2 Saturation 94 94 71 L ABG Base Excess -2 -1 -1 VBG pH VBG pCO2 VBG pO2 VBG Base Excess 04/08/24 04/08/24 16:20 17:19 ABG pH 7.34 L 7.35 ABG pCO2 46 45 ABG pO2 36 L* 113 H D ABG HCO3 25 25 ABG O2 Saturation 63 L 97 ABG Base Excess -1 -1 VBG pH VBG pCO2 VBG pO2 VBG Base Excess Quality Measures Quality Measures VTE prophylaxis Advance care planning discussed with:: child Assessment & Plan Assessment Current Active Medications: Generic Name Dose Route Start Last Admin Trade Name Freq PRN Reason Stop Dose Admin Acetaminophen 650 mg 04/05/24 23:06 Acetaminophen 325 Mg Tablet PO 05/05/24 23:05 Q6H PRN PAIN SCALE 1-3 (mild Acetaminophen 650 mg 04/05/24 23:06 Acetaminophen 325 Mg Tablet PO 05/05/24 23:05 Q6H PRN Fever >100 Hydrocodone Bitart/Acetaminophen 1 tab 04/05/24 23:06 Hydrocodone/Apap 10/325 Tab PO 04/10/24 23:05 Q4HR PRN PAIN SCALE 7-10 (Severe Albuterol/Ipratropium 3 ml 04/06/24 01:00 04/09/24 08:00 Albuterol/Ipratropium (Duoneb) Rt Princess 3 Ml Nebu INH 05/06/24 00:59 3 ml Q6HRRT DELMY Administration Aspirin 300 mg 04/06/24 12:15 04/09/24 09:06 Aspirin 300 Mg Supp RI 05/06/24 12:14 300 mg QDAY DELMY Administration Atorvastatin Calcium 80 mg 04/06/24 21:00 04/08/24 20:06 Atorvastatin Calcium 20 Mg Tablet PO 05/06/24 20:59 Not Given HS DELMY Calcium Carbonate 600 mg 04/06/24 14:45 04/09/24 09:06 Calcium Carbonate 600 Mg Tablet PO 05/06/24 14:44 Not Given BID DELMY Dextrose 25 ml 04/07/24 10:52 Dextrose 50%-Water Inj 50 Ml Syringe IV 05/07/24 10:51 Q15MIN PRN BG 50-70 responsive npo pt Dextrose 50 ml 04/07/24 10:52 Dextrose 50%-Water Inj 50 Ml Syringe IV 05/07/24 10:51 Q15MIN PRN BG <50 OR BG <70 & pt unresponsive Glucagon 1 mg 04/07/24 10:52 Glucagon Inj 1 Mg Vial IM Q15MIN PRN BG <70, and no IV access Heparin Sodium (Porcine) 3,300 unit 04/06/24 15:03 04/08/24 13:05 Heparin Sod Inj 1000 Unit/Ml Vial 10 Ml INDWELLCAT 04/20/24 15:02 3,300 unit PRN PRN Administration DIALYSIS Heparin Sodium (Porcine) 5,000 unit 04/09/24 08:00 04/09/24 09:12 Heparin Sod Inj 5000 Unit/Ml Vial SC 04/23/24 07:59 5,000 unit Q8HR DELMY Administration Albumin Human 25 gm in 100 mls @ 100 mls/min 04/06/24 08:27 04/08/24 10:03 Albuminar-25 Ivpb IV 100 mls/min PRN PRN Administration DIALYSIS Cefepime HCl 2 gm/ Sodium 50 mls @ 100 mls/hr 04/08/24 09:00 04/09/24 09:06 Chloride IV 04/15/24 08:59 100 mls/hr QDAY DELMY Administration Dexmedetomidine/Sodium Chloride 200 mcg in 50 mls @ 5.31 mls/hr 04/08/24 09:17 Precedex Ivpb IV 05/08/24 09:16 .Q9H25M PRN Per PROTOCOL Protocol 0.2 MCG/KG/HR Norepinephrine/Dextrose 8 mg in 250 mls @ 9.956 mls/hr 04/08/24 09:53 04/08/24 18:24 Levophed In D5w 8mg/250ml IV 05/08/24 09:52 0 mcg/kg/min .Q24H PRN 0 mls/hr PER PROTOCOL Titration Protocol 0.05 MCG/KG/MIN Doxycycline Hyclate 100 mg/ 100 mls @ 100 mls/hr 04/08/24 13:30 04/09/24 09:11 Sodium Chloride IV 04/13/24 20:59 100 mls/hr BID DELMY Administration Valproic Acid 750 mg/ Sodium 57.5 mls @ 55 mls/hr 04/08/24 22:00 04/09/24 06:17 Chloride IV 05/08/24 21:59 55 mls/hr Q8HR DELMY Administration Insulin Glargine 15 unit 04/10/24 09:00 Insulin Glargine (Lantus) 5 Unit/0.05 Ml (Per 5 Units) SC 05/10/24 08:59 QAM [facility] Insulin Human Lispro 0 unit 04/09/24 10:28 Insulin Lispro (Admelog) 1 Unit/0.01 Ml Unit SC 05/07/24 11:59 Q6HR [facility] Protocol Labetalol HCl 10 mg 04/05/24 23:55 Labetalol Inj 5 Mg/Ml Vial 20 Ml IVP 05/05/24 23:54 X1 PRN BP >220/110 Lidocaine HCl 9 ml 04/06/24 11:00 Lidocaine Inj Pf 1% 5 Ml Vial INFL X1 PRN LOCAL ANESTHESIA Protocol Methylprednisolone Sodium Succinate 250 mg 04/09/24 12:00 Methylprednisolone Sod Succ 62.5 Mg/Ml 2ml Vial IVP 04/16/24 11:59 Q6HR [facility] Ondansetron HCl 4 mg 04/05/24 23:06 Ondansetron Inj 2 Mg/Ml Inj 2 Ml IV 05/05/24 23:05 Q6H PRN NAUSEA OR VOMITING Protocol Oxycodone/Acetaminophen 1 tab 04/05/24 23:06 Oxycodone/Apap 5/325 Tablet PO 04/10/24 23:05 Q6H PRN PAIN SCALE 4-6 (Moderate Pantoprazole Sodium 40 mg 04/06/24 09:00 04/09/24 09:05 Pantoprazole Inj 40 Mg Vial IVP 05/06/24 08:59 40 mg QDAY DELMY Administration Pharmacy Consult 1 each 04/09/24 08:54 Pharmacy Renal Dose Adjustment 1 Ea XX 05/08/24 08:59 QDAY PRN protocol Plan Sofiya Vogt is a 64-year-old female with a past medical history of 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 Neurological #Acute encephalopathy, secondary to autoimmune encephalitis vs viral encephalitis vs CVA Initially presented with focal neurological deficits, including unilateral facial droop and slurred speech. CT head negative, including repeat although severely limited due to patient movement. Thus far, have been unable to obtain MRI brain as patient was previously on HFNC and was not compatible with MRI. However, patient is currently on oxy mask at 15 L and can possibly undergo MRI today. Given that patient mentation has not improved after multiple sessions of dialysis, unlikely due to uremia. ABG also did not indicate hypercapnia, unlikely due to hypercapnic encephalopathy. Status post lumbar puncture on 04/08 and EEG on 04/08. See details below. ? Neurology consulted, appreciate recommendations ? IV methylprednisolone 250 mg every 6 hours for 5 days (consider starting 1 g daily tomorrow) ? Valproate IV every 8 hours ? EEG showed diffuse slowing, suggestive of encephalopathy of metabolic vs degenerative vs vascular origin without epileptic waveforms ? Lumbar puncture on 04/08: clear, 4 WBC, 148 glucose H, 54 protein H; other results pending ? Follow-up autoimmune encephalitis panel, West Nile, HSV, and Cryptococcal studies ? MRI brain unobtainable due to body habitus ? Follow-up ZAINAB, ANCA, C3, C4 Cardiovascular #Elevated troponins, likely NSTEMI type II Downtrended from 1.3 to 1.2, stable Pulmonary #Acute hypoxic respiratory failure secondary to CAP Upon evaluation, patient saturating 89 to 90% on HFNC. ABG showed pH 7.39, pCO2 40, pO2 79. ? Oxymask 12 L ? Chest physiotherapy q6hr ? Duonebs #Community acquired penumonia CT chest on admission showed bilateral pneumonia CXR 04/09 again showed bilateral pneumonia but improved compared to CXR on 04/07 ? Cefepime and doxycycline (04/07-04/11) ? Previously on ceftriaxone and azithromycin from 04/05-04/07 Gastrointestinal #Transaminitis, stable Has received multiple antibiotics #GI prophylaxis ? Pantoprazole 40 mg IV daily #NG tube placed, 04/09 KUB showed Dobhoff NG tube in distal stomach/satisfactory position ? [employer] Psychologist referral to begin NG tube feedings ? Start at 20 ml/hr via NG tube by pump, advance 10 ml q8hr to goal rate of 40 ml/hr x 24 hrs ? If no IV fluids, water flushes of 25 ml/hr (or per MD) Renal #Acute kidney injury, improving on HD Status post placement of TDC. Hemodialysis sessions 04/06, 04/07, 04/08. ? HD per nephrology recommendations ? Renally dose medications ? Avoid nephrotoxic agents ? Bumex 2 mg IV x1 #History of staghorn calculi #Nephrolithiasis, 10 mm and 14 mm lower pole left renal calculi without hydronephrosis seen on CT A/P ? Urology consulted ? Not surgical candidate at this time ? No indication for percutaneous nephrostomy tube or ureteral stent ? Possible to have PCNL after patient is fully recovered #Hypercalcemia, resolved #Hyperphosphatemia ? NPO, can consider sevelamer Endocine #Type 2 diabetes mellitus A1c 7.6%. Fasting glucose 318, glargine increased from 6 to 10 units. ? SSI ? 15 units glargine Heme #Chronic, normocytic anemia Slowly downtrending but stable. Has not had bloody bowel movements or gross hematuria. ? Continue to monitor Infectious disease #? Autoimmune encephalitis vs viral encephalitis vs CVA ? CSF cultures 04/08: GPC ? Follow-up other labs above #Community acquired pneumonia Dada fever on 04/06, but has been stable since. No leukocytosis. ? Cefepime and doxycycline, see pulmonary above ? Cocci IgM and IgG negative ? MRSA nares: negative ? Blood culture 04/06: NGTD ? Sputum culture 04/06: mixed oral quentin ? COVID, RSV, and flu negative Hospital management: Disposition: acute encephalopathy, on IV antibiotics Fluids: none Pressors: Levophed for HD, weaning down Sedatives: Precedex PRN Diet: NPO, NG tube DVT prophylaxis: heparin SC q8hr GI prophylaxis: pantoprazole 40 mg IV Lines: peripheral, TDC CODE STATUS: full code ----- Plan discussed with attending physician Dr. Bardales. Ion Andino MD PGY-1 Internal Medicine Attending Provider Attestation/Addendum pt seen and examined with resident, agree with above. in brief this is a 64yo F brought to the ICU for acute hypoxic resp failure with increasing FiO2 needs from yesterday and increase WOB. She remains profoundly encephalopathic. Yesterday she had 3lts removed with HD. Today her FiO2 needs have decreased to oxymask at 15lts. She was unable to go to MRI yesterday due to HFNC with O2 requirements. She underwent an LP yesterday with neurology. At this point in time there is a suspicion for autoimmune encephalitis per neuro and therefore recs were for solumedrol 1gr IV /daily. EEG shows no sz spikes and diffuse encephalopathy. She has remained hemodynamically stable and there has been an improvement in her respiratory status today. pt is stable to return to tele case d/w ICU team labs, imaging, records reviewed ~38min required for eval, exam, review, intervention, discussion, and formulation of POC for this acutely ill pt
--- NOTE | 2024-04-09 11:41 | XR_ITS ---
Examination: Abdomen AP single view Technique: AP portable supine abdomen, single view Exam date and time: April 09, 2024 1114 hours INDICATIONS: Introduction feeding tube FINDINGS: Feeding tube tip distal stomach No free air IMPRESSION: Feeding tube tip distal stomach
--- NOTE | 2024-04-09 12:27 | PC.DIETICIAN ---
Nutrition prescription Nepro at 20 ml/hr via NG tube by pump. Advance 10 ml every 8 hrs to goal rate of 40 ml/hr x 24 hrs. If no IV fluids, water flushes of 25 ml/hr (or per MD).
[2024-04-09] MEDS: METHYLPREDNISOLONE IV ×3 (12:46→23:54)
[2024-04-09] MEDS: SODIUM CHLORIDE 0.9% IV ×3 (12:46→23:54)
[2024-04-09] MEDS: BUMETANIDE INJ 0.25 MG/ML VIAL 4 ML 2 MG IVP (12:46)
[2024-04-09 13:40] LABS: Path Review Blood Smear Sent to Pathologist
[2024-04-09 16:07] LABS: Anion Gap 11 (7-16); BUN/Creatinine Ratio 8 Ratio (12-20); Blood Urea Nitrogen 34 mg/dL (9-23); Carbon Dioxide 26.2 mMol/L (20.0-31.0); Chloride 100 mMol/L (98-107); Creatinine (Component) 4.3 mg/dL (0.6-1.3); Estimated Creatinine Clearance 13.5 mL/min (>60); Glucose 252 mg/dL (74-106); Osmolality,Calculated 290 (275-295); Potassium 4.1 mMol/L (3.4-5.1); Sodium 137 mMol/L (136-145); eGFR 11 See Note
--- NOTE | 2024-04-09 16:17 | PC.SS ---
Update: Patient on high flow oxygen. MRI is pending. Tube feeding in place. Patient received dialysis yesterday. Patient is not established with outpatient dialysis services.
[2024-04-09] MEDS: LORazepam 2 MG/ML VIAL IVP (17:30)
--- NOTE | 2024-04-09 19:17 | EVENTNT_ITS ---
Documentation for date of: 04/09/24 Event Note Event Note: Notified by Dr. Bertrand for ICU downgrade. In short, patient is a 64 year old female with PMH who was admitted to the hospital for acute metabolic encephalopathy, stroke rule out, and sepsis and acute hypoxic respiratory failure secondary to suspected community acquired pneumonia, ANA LAURA on CKD now new dialysis on this admission. She was upgraded to the ICU for hypotension and septic shock requiring pressors, and acute enc ephalopathy with respiratory failure. Patient is now on NC and no longer on pressors. Patient to be downgraded to floors on Apr 10 for continued care and workup. Madiha Alejandro MD PGY-3
--- NOTE | 2024-04-09 21:42 | XR_ITS ---
Examination: Abdomen AP single view Technique: AP portable supine abdomen, single view Exam date and time: April 09, 2024 1027 hrs. Indications: Post orogastric tube placement Findings: Orogastric tube in the stomach satisfactory position No free air Mild enlargement cardiac contour Impression: Orogastric tube tip in the stomach satisfactory position
--- NOTE | 2024-04-09 22:26 | PD.NEUROPROG ---
Documentation for date of: 04/09/24 Subjective Subjective Interval history: Patient was seen in telemetry today. Continues to be somnolent, aphasic, started having constant myoclonus involving the right hemiface, improved after Ativan and Depakote. No similar movements involving the arms and legs noted Exam - Neurology Vital Signs Temp Pulse Resp BP Pulse Ox O2 Del Method O2 Flow Rate 97.4 F 93 18 142/54 H 98 High Flow Nasal Cannula 15 04/09/24 20:00 04/09/24 21:00 04/09/24 21:00 04/09/24 21:00 04/09/24 21:00 04/08/24 16:02 04/09/24 19:00 FiO2 80 04/09/24 08:02 Narrative Exam GENERAL APPEARANCE: Well-developed, obese built female in mild distress. HEENT: Normocephalic, atraumatic, extraocular movements intact. Pupils: Equal reacting to light NECK: Supple, no JVD or bruits. CARDIOVASULAR: Heart: S1, S2 heard, regular without S3-S4 or murmur no rubs or gallops. LUNGS/CHEST: Clear to auscultation bilaterally. No rails, rhonchi, or wheezing. Normal inspection. ABDOMEN: Soft, nontender, with normal bowel sounds. No pulsatile masses. No rebound, rigidity, or guarding. Normal inspection and palpation. EXTREMITIES: Normal inspection and palpation. No edema, clubbing or cyanosis. SKIN: Warm and dry without rashes. Normal inspection. MUSCULOSKELETAL: No cervical, thoracic, lumbar or midline bony tenderness. Normal inspection. NEURO: Somnolent, not responsive to verbal commands, some intermittent purposeful movements noted in both upper and lower extremities. No more myoclonic twitching in right hemiface noted. No signs of meningeal irritation noted. Rest of the exam limited secondary to mental status PSYCHIATRIC: Limited Objective Labs 04/10/24 04:38 04/10/24 20:32 Labs: Laboratory Results - last 24 hr 04/08/24 04/08/24 04/08/24 18:00 18:00 18:00 WBC RBC Hgb Hct MCV MCH MCHC RDW Std Deviation Plt Count Neut % (Auto) Lymph % (Auto) [place] % (Auto) Eos % (Auto) Baso % (Auto) Neut # (Auto) Lymph # (Auto) [place] # (Auto) Eos # (Auto) Baso # (Auto) Immature Gran # (Auto) Absolute Nucleated RBC Immature Gran % Nucleated RBC % Smear Path Review Sodium Potassium Chloride Carbon Dioxide Anion Gap BUN Creatinine Estim Creat Clear Calc eGFR BUN/Creatinine Ratio Glucose Calculated Osmolality Calcium Corrected Calcium Phosphorus Magnesium Total Bilirubin AST ALT Alkaline Phosphatase Total Protein Albumin Globulin Albumin/Globulin Ratio Misc Test Result Cancelled Cancelled Cancelled 04/09/24 04/09/24 04:25 14:51 WBC 7.7 RBC 2.86 L Hgb 8.1 L Hct 25.7 L MCV 90 MCH 28.3 MCHC 31.5 RDW Std Deviation 52.8 H Plt Count 247 Neut % (Auto) 79 Lymph % (Auto) 14 [place] % (Auto) 4 Eos % (Auto) 1 Baso % (Auto) 0 Neut # (Auto) 6.1 Lymph # (Auto) 1.1 [place] # (Auto) 0.3 Eos # (Auto) 0.1 Baso # (Auto) 0.0 Immature Gran # (Auto) 0.07 H Absolute Nucleated RBC 0.02 H Immature Gran % 1 H Nucleated RBC % 0 Smear Path Review Sent to Pathologist Sodium 138 137 Potassium 4.0 4.1 Chloride 99 100 Carbon Dioxide 26.9 26.2 Anion Gap 12 11 BUN 26 H 34 H Creatinine 3.7 H D 4.3 H* D Estim Creat Clear Calc 16.4 L 13.5 L eGFR 13 L* 11 L* BUN/Creatinine Ratio 7 L 8 L Glucose 268 H D 252 H Calculated Osmolality 289 290 Calcium 9.0 9.0 Corrected Calcium 9.2 Phosphorus 5.6 H Magnesium 2.2 Total Bilirubin 0.3 AST 78 H ALT 23 Alkaline Phosphatase 94 Total Protein 6.8 Albumin 3.7 Globulin 3.1 Albumin/Globulin Ratio 1.2 Misc Test Result ABG Interpretation ABG results: 04/05/24 04/06/24 04/06/24 13:11 05:17 13:37 ABG pH 7.23 L 7.23 L ABG pCO2 39 31 L ABG pO2 54 L* 70 L ABG HCO3 16 L 13 L ABG O2 Saturation 86 L 92 ABG Base Excess -11 L -13 L VBG pH 7.23 L VBG pCO2 34 L VBG pO2 35 VBG Base Excess -13 L 04/06/24 04/07/24 04/08/24 16:56 12:14 14:46 ABG pH 7.42 D 7.39 7.36 ABG pCO2 35 40 44 ABG pO2 69 L 79 L 40 L* D ABG HCO3 23 24 25 ABG O2 Saturation 94 94 71 L ABG Base Excess -2 -1 -1 VBG pH VBG pCO2 VBG pO2 VBG Base Excess 04/08/24 04/08/24 16:20 17:19 ABG pH 7.34 L 7.35 ABG pCO2 46 45 ABG pO2 36 L* 113 H D ABG HCO3 25 25 ABG O2 Saturation 63 L 97 ABG Base Excess -1 -1 VBG pH VBG pCO2 VBG pO2 VBG Base Excess Assessment & Plan Assessment and plan (1) Altered mental status: Status: Acute Assessment and plan: CSF analysis: Insignificant However as we still suspect LGI 1 encephalitis in the differential diagnosis, we will keep her on Solu-Medrol 1 g once a day with tight control of blood sugar with sliding scale insulin as needed. Will continue to monitor her closely. Noted she could not get the MRI done from her body habitus and cannot tolerate high flow oxygen mask. (2) ANA LAURA (acute kidney injury): Status: Acute Assessment and plan: Going to be on dialysis
[2024-04-10] VITALS (118 sets, daily range): BP systolic 78–300; BP diastolic 29–237; PULSE 79–121; RESP 10–43; TEMP 36.1–36.7; O2SAT 86–99; BMI 42.6
--- NOTE | 2024-04-10 | XR_ITS ---
Examinations: MRI Brain without intravenous contrast. MRA brain without intravenous contrast. MRA carotids without intravenous contrast 3-D vascular reconstructions Date and time of exam: April 10, 2024 1625 hrs. Indications: Stroke alert April 05, 2024, altered mental status, slurred speech, history stroke with left-sided deficits 2017 Technique: Multiple axial and sagittal images of the brain have been obtained MRA brain carotid images without contrast obtained, including 3-D postprocessing, vascular maximum intensity projection images Findings: Sellaturcica is not enlarged. The optic chiasm and infundibular stalk are not remarkable. Prepontine and interpeduncular cisterns are not enlarged. No localized enlargement of the medulla or christine. Fourth ventricle and cerebellar tonsils normal in position. Subacute hemorrhage is not seen. Fourth ventricle is midline. Mass in the cerebellopontine angle region is not evident. 7th and 8th nerve complexes exhibits symmetry. Globes are symmetrical with no retro-orbital mass. Increased white matter signal prominent Diffusion-weighted images demonstrate 12 mm focus restricted diffusion anterior right brainstem pontine level, 14 mm oval focus restricted diffusion right basal ganglia Mass-effect upon the ventricular system is not identified. MRA carotid images degraded. MRA brain images degraded by patient motion Impression: 12 mm acute infarct anterior right brainstem pontine level 14 mm acute infarct right basal ganglia
[2024-04-10] MEDS: ALBUTEROL/IPRATROPIUM (Duoneb) RT SOL 3 ML NEBU INH ×5 (02:20→22:55)
[2024-04-10] MEDS: METHYLPREDNISOLONE IV (05:15)
[2024-04-10] MEDS: VALPROATE SOD INJ 750 MG in SODIUM CHLORIDE 0.9% 50 ML 55 MG IV ×3 (05:15→21:20)
[2024-04-10] MEDS: SODIUM CHLORIDE 0.9% IV (05:15)
[2024-04-10] MEDS: HEPARIN SOD INJ 5000 UNIT/ML VIAL SC ×3 (05:18→21:26)
[2024-04-10] MEDS: INSULIN LISPRO (AdmeLOG) 1 UNIT/0.01 ML UNIT SC ×3 (05:21→22:08)
[2024-04-10 05:34] LABS: Basophils % (Auto) 0 % (0-2.5); Eosinophils % (Auto) 0 % (0-10); Hematocrit 29.7 % (36.0-46.0); Hemoglobin 8.9 g/dL (12.0-16.0); Immature Granulocytes % (Auto) 2 % (0-0); Immature Granulocytes Auto 0.14 Thou/mm3 (0.00-0.00); Lymphocytes # (Auto) 0.5 Thou/mm3 (1.0-4.8); Lymphocytes % (Auto) 6 % (10-50); Mean Corpuscular Volume 93 fL (80-100); Monocytes # (Auto) 0.3 Thou/mm3 (0.0-0.8); Monocytes % (Auto) 4 % (0-12); Neutrophils # (Auto) 7.5 Thou/mm3 (1.8-7.7); Neutrophils % (Auto) 89 % (37-80); Nucleated Red Blood Cell # 0.03 Thou/mm3 (0.00-0.00); Nucleated Red Blood Cell % 0 /100 WBC (0); Platelet Count 288 Thou/mm3 (140-440); Red Blood Count 3.18 Miln/mm3 (4.00-5.20); White Blood Count 8.5 Thou/mm3 (3.6-11.0)
[2024-04-10] MEDS: INSULIN GLARGINE (Lantus) 5 UNIT/0.05 ML (PER 5 UNITS) 20 UNIT SC ×2 (08:22→19:09)
[2024-04-10] MEDS: ASPIRIN 300 MG SUPP PR (08:22)
[2024-04-10] MEDS: PANTOPRAZOLE INJ 40 MG VIAL IVP (08:22)
[2024-04-10 08:57] LABS: Alanine Aminotransferase 22 U/L (10-49); Albumin, Serum 3.9 gm/dL (3.4-4.8); Albumin/Globulin Ratio 1.1 (1.2-2.2); Alkaline Phosphatase 112 U/L (46-116); Anion Gap 17 (7-16); Aspartate Amino Transferase 40 U/L (0-34); BUN/Creatinine Ratio 9 Ratio (12-20); Bilirubin,Total 0.2 mg/dL (0.3-1.2); Blood Urea Nitrogen 53 mg/dL (9-23); Calcium 8.8 mg/dL (8.3-10.6); Calcium (Corrected) 8.9 mg/dL (8.5-10.1); Carbon Dioxide 22.1 mMol/L (20.0-31.0); Chloride 98 mMol/L (98-107); Creatinine (Component) 5.6 mg/dL (0.6-1.3); Estimated Creatinine Clearance 10.3 mL/min (>60); Globulin 3.6 gm/dL (2.3-3.5); Osmolality,Calculated 316 (275-295); Sodium 137 mMol/L (136-145); Total Protein 7.5 gm/dL (5.7-8.2); eGFR 8 See Note
[2024-04-10 09:02] LABS: Glucose 596 mg/dL (74-106)
--- NOTE | 2024-04-10 09:28 | ESPR_ITS ---
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 Stroke alert was called, and underwent stroke workup. tPA not given due to out of window. On further interviewing, she reported that she has been taking some penicillin that was brought from [place] of long time ago. She also took Motrin x 2 in last 2 days. She admitted having fever, denied any chills, lightheadedness, chest pain, and any flank pain. Her vitals are fairly stable, hemoglobin 9.1, ABG significant for pH 7.23, pCO2 39, pO2 70. Chemistry panel revealed sodium 133, mild hyperkalemia, bicarb 15.1. BUN 66, creatinine 5.9, EGFR 7. Baseline creatinine is 1.6 with EGFR 56. Triglyceride 493, cholesterol 191, HDL 30 with normal TSH and T4. Hepatitis panel negative. CT head negative for midline shift, acute hemorrhage or mass effect. Pending carotid US, and brain MRI. CXR with mild congestion and superimposed pneumonia. CT abdomen pelvis revealed significant hepatomegaly, moderate bilateral renal parenchymal scarring, 10 mm and 14 mm renal calculi on the left, cystitis pattern, no hydronephrosis or bowel obstruction. PMH: As mentioned above Social history: Denies alcohol, smoking or any illicit drug use Allergies: No known allergies 04/07/2024: The patient was interviewed and examined at the bedside. She was saturating 93% on BiPAP, with FiO2 40% and O2 flow 30 L. Chemistry panel revealed BUN 52, creatinine 4.9, EGFR 9, blood sugar 279, calcium 8.1 and phosphorus 6.0. The patient will get second session of hemodialysis this morning. Urine random creatinine 113, protein 598, sodium 42, potassium 33, chloride 27, urea nitrogen 302. Renal ultrasound significant for moderate bilateral renal parenchymal eschar formation, bilateral renal cortical thinning with no hydronephrosis. 04/08/2024: The patient was examined at the bedside this morning. She reported having difficulty breathing. She was upgraded to ICU. She was saturating 92% on BiPAP. Other vitals were fairly stable. Physical examination was significant for distant breath sounds, and bibasilar crackles. Labs were significant for hemoglobin trending down to 8.1 likely dilutional, BUN 41 and creatinine 4.4, phosphorus 5.8. Ordered ZAINAB screen, ANCA, antiproteinase 3, antimyeloperoxidase and complement level. 04/09/2024: The patient was at the bedside this morning again. She was difficult to arouse and was reacting to painful stimulus. Her vitals were stable saturating 97% on high flow NC with FiO2 80%. The patient underwent hemodialysis yesterday with removal of 3 L fluid and was hypotensive after that. BUN And creatinine improving to 26 and 3.7 respectively. Phosphorus 5.6 less than 10. We will hold off today and proceed with morning. 04/10/24: The patient was agitated overnight and was given 2 mg of IV lorazepam. This morning, she was responding only to painful stimuli, lying on her bed. Her fingerstick blood sugar this morning was 483, hemoglobin 8.9, Chemistry panel significant for potassium 5.0, BUN 53, creatinine 5.6, and blood sugar 596. The patient is planned to undergo hemodialysis this morning. Exam Vital Signs Temp Pulse Resp BP Pulse Ox O2 Del Method O2 Flow Rate 98.1 F 99 21 H 142/59 H 90 L High Flow Nasal Cannula 13 04/10/24 04:00 04/10/24 06:53 04/10/24 06:53 04/10/24 06:00 04/10/24 06:53 04/08/24 16:02 04/10/24 06:53 FiO2 80 04/09/24 08:02 Narrative Exam General: No acute distress, alert and oriented x 0,responding only to deep stimuli. HEENT: Moist mucous membranes, oropharynx clear Neck: Supple, No masses, No JVD CVS: S1S2 Regular rate and rhythm, No murmurs, rubs or gallops Lungs: Distant breath sounds, bibasilar crackles, no wheeze no rhonchi Abd: Soft, NT/ND, +BS, no organomegaly Ext: 1+ bilateral lower limb edema, warm and well perfused, peripheral arteries barely palpable Skin: No rash Psych: Unobtainable Objective Labs 04/12/24 04:23 04/12/24 04:23 Labs: Laboratory Results - last 24 hr 04/09/24 04/09/24 04/10/24 04:25 14:51 04:38 WBC 8.5 RBC 3.18 L Hgb 8.9 L Hct 29.7 L MCV 93 MCH 28.0 MCHC 30.0 L RDW Std Deviation 55.0 H Plt Count 288 D Neut % (Auto) 89 H Lymph % (Auto) 6 L [place] % (Auto) 4 Eos % (Auto) 0 Baso % (Auto) 0 Neut # (Auto) 7.5 Lymph # (Auto) 0.5 L [place] # (Auto) 0.3 Eos # (Auto) 0.0 Baso # (Auto) 0.0 Immature Gran # (Auto) 0.14 H Absolute Nucleated RBC 0.03 H Immature Gran % 2 H Nucleated RBC % 0 Smear Path Review Sent to Pathologist Sodium 137 Potassium 4.1 Chloride 100 Carbon Dioxide 26.2 Anion Gap 11 BUN 34 H Creatinine 4.3 H* D Estim Creat Clear Calc 13.5 L eGFR 11 L* BUN/Creatinine Ratio 8 L Glucose 252 H Calculated Osmolality 290 Calcium 9.0 Corrected Calcium Total Bilirubin AST ALT Alkaline Phosphatase Total Protein Albumin Globulin Albumin/Globulin Ratio 04/10/24 07:44 WBC RBC Hgb Hct MCV MCH MCHC RDW Std Deviation Plt Count Neut % (Auto) Lymph % (Auto) [place] % (Auto) Eos % (Auto) Baso % (Auto) Neut # (Auto) Lymph # (Auto) [place] # (Auto) Eos # (Auto) Baso # (Auto) Immature Gran # (Auto) Absolute Nucleated RBC Immature Gran % Nucleated RBC % Smear Path Review Sodium 137 Potassium 5.0 D Chloride 98 Carbon Dioxide 22.1 Anion Gap 17 H BUN 53 H Creatinine 5.6 H* D Estim Creat Clear Calc 10.3 L eGFR 8 L* BUN/Creatinine Ratio 9 L Glucose 596 H* D Calculated Osmolality 316 H Calcium 8.8 Corrected Calcium 8.9 Total Bilirubin 0.2 L AST 40 H ALT 22 Alkaline Phosphatase 112 Total Protein 7.5 Albumin 3.9 Globulin 3.6 H Albumin/Globulin Ratio 1.1 L ABG Interpretation ABG results: 04/05/24 04/06/24 04/06/24 13:11 05:17 13:37 ABG pH 7.23 L 7.23 L ABG pCO2 39 31 L ABG pO2 54 L* 70 L ABG HCO3 16 L 13 L ABG O2 Saturation 86 L 92 ABG Base Excess -11 L -13 L VBG pH 7.23 L VBG pCO2 34 L VBG pO2 35 VBG Base Excess -13 L 04/06/24 04/07/24 04/08/24 16:56 12:14 14:46 ABG pH 7.42 D 7.39 7.36 ABG pCO2 35 40 44 ABG pO2 69 L 79 L 40 L* D ABG HCO3 23 24 25 ABG O2 Saturation 94 94 71 L ABG Base Excess -2 -1 -1 VBG pH VBG pCO2 VBG pO2 VBG Base Excess 04/08/24 04/08/24 16:20 17:19 ABG pH 7.34 L 7.35 ABG pCO2 46 45 ABG pO2 36 L* 113 H D ABG HCO3 25 25 ABG O2 Saturation 63 L 97 ABG Base Excess -1 -1 VBG pH VBG pCO2 VBG pO2 VBG Base Excess Quality Measures Quality Measures VTE prophylaxis Advance care planning discussed with:: other Assessment & Plan Assessment Current Active Medications: Generic Name Dose Route Start Last Admin Trade Name Freq PRN Reason Stop Dose Admin Acetaminophen 650 mg 04/05/24 23:06 Acetaminophen 325 Mg Tablet PO 05/05/24 23:05 Q6H PRN PAIN SCALE 1-3 (mild Acetaminophen 650 mg 04/05/24 23:06 Acetaminophen 325 Mg Tablet PO 05/05/24 23:05 Q6H PRN Fever >100 Hydrocodone Bitart/Acetaminophen 1 tab 04/05/24 23:06 Hydrocodone/Apap 10/325 Tab PO 04/10/24 23:05 Q4HR PRN PAIN SCALE 7-10 (Severe Albuterol/Ipratropium 3 ml 04/06/24 01:00 04/10/24 06:51 Albuterol/Ipratropium (Duoneb) Rt Princess 3 Ml Nebu INH 05/06/24 00:59 3 ml Q6HRRT DELMY Administration Aspirin 300 mg 04/06/24 12:15 04/10/24 08:22 Aspirin 300 Mg Supp DE 05/06/24 12:14 300 mg QDAY DELMY Administration Atorvastatin Calcium 80 mg 04/06/24 21:00 04/09/24 22:00 Atorvastatin Calcium 20 Mg Tablet PO 05/06/24 20:59 Not Given HS DELMY Calcium Carbonate 600 mg 04/06/24 14:45 04/09/24 22:00 Calcium Carbonate 600 Mg Tablet PO 05/06/24 14:44 Not Given BID DELMY Dextrose 25 ml 04/07/24 10:52 Dextrose 50%-Water Inj 50 Ml Syringe IV 05/07/24 10:51 Q15MIN PRN BG 50-70 responsive npo pt Dextrose 50 ml 04/07/24 10:52 Dextrose 50%-Water Inj 50 Ml Syringe IV 05/07/24 10:51 Q15MIN PRN BG <50 OR BG <70 & pt unresponsive Glucagon 1 mg 04/07/24 10:52 Glucagon Inj 1 Mg Vial IM Q15MIN PRN BG <70, and no IV access Heparin Sodium (Porcine) 3,300 unit 04/06/24 15:03 04/08/24 13:05 Heparin Sod Inj 1000 Unit/Ml Vial 10 Ml INDWELLCAT 04/20/24 15:02 3,300 unit PRN PRN Administration DIALYSIS Heparin Sodium (Porcine) 5,000 unit 04/09/24 08:00 04/10/24 05:18 Heparin Sod Inj 5000 Unit/Ml Vial SC 04/23/24 07:59 5,000 unit Q8HR DELMY Administration Albumin Human 25 gm in 100 mls @ 100 mls/min 04/06/24 08:27 04/08/24 10:03 Albuminar-25 Ivpb IV 100 mls/min PRN PRN Administration DIALYSIS Cefepime HCl 2 gm/ Sodium 50 mls @ 100 mls/hr 04/08/24 09:00 04/09/24 09:06 Chloride IV 04/15/24 08:59 100 mls/hr QDAY DELMY Administration Dexmedetomidine/Sodium Chloride 200 mcg in 50 mls @ 5.31 mls/hr 04/08/24 09:17 Precedex Ivpb IV 05/08/24 09:16 .Q9H25M PRN Per PROTOCOL Protocol 0.2 MCG/KG/HR Norepinephrine/Dextrose 8 mg in 250 mls @ 9.956 mls/hr 04/08/24 09:53 04/08/24 18:24 Levophed In D5w 8mg/250ml IV 05/08/24 09:52 0 mcg/kg/min .Q24H PRN 0 mls/hr PER PROTOCOL Titration Protocol 0.05 MCG/KG/MIN Valproic Acid 750 mg/ Sodium 57.5 mls @ 55 mls/hr 04/08/24 22:00 04/10/24 05:15 Chloride IV 05/08/24 21:59 55 mls/hr Q8HR DELMY Administration Methylprednisolone Sodium 104 mls @ 104 mls/hr 04/09/24 12:00 04/10/24 05:15 Succinate 250 mg/ Sodium IV 04/16/24 11:59 104 mls/hr Chloride Q6HR DELMY Administration Vancomycin/Sodium Chloride 200 mls @ 120 mls/hr 04/10/24 10:00 Vancomycin/Ns 1 Gm Ivpb IV 04/10/24 11:39 X1 ONE Insulin Glargine 20 unit 04/10/24 09:00 04/10/24 08:22 Insulin Glargine (Lantus) 5 Unit/0.05 Ml (Per 5 Units) SC 05/10/24 08:59 20 unit QAM DELMY Administration Insulin Human Lispro 0 unit 04/09/24 10:28 04/10/24 05:21 Insulin Lispro (Admelog) 1 Unit/0.01 Ml Unit SC 05/07/24 11:59 6 unit Q6HR DELMY Administration Protocol Labetalol HCl 10 mg 04/05/24 23:55 Labetalol Inj 5 Mg/Ml Vial 20 Ml IVP 05/05/24 23:54 X1 PRN BP >220/110 Lidocaine HCl 9 ml 04/06/24 11:00 Lidocaine Inj Pf 1% 5 Ml Vial INFL X1 PRN LOCAL ANESTHESIA Protocol Ondansetron HCl 4 mg 04/05/24 23:06 Ondansetron Inj 2 Mg/Ml Inj 2 Ml IV 05/05/24 23:05 Q6H PRN NAUSEA OR VOMITING Protocol Oxycodone/Acetaminophen 1 tab 04/05/24 23:06 Oxycodone/Apap 5/325 Tablet PO 04/10/24 23:05 Q6H PRN PAIN SCALE 4-6 (Moderate Pantoprazole Sodium 40 mg 04/06/24 09:00 04/10/24 08:22 Pantoprazole Inj 40 Mg Vial IVP 05/06/24 08:59 40 mg QDAY DELMY Administration Pharmacy Consult 1 each 04/09/24 08:54 Pharmacy Renal Dose Adjustment 1 Ea XX 05/08/24 08:59 QDAY PRN protocol Pharmacy Consult 1 each 04/10/24 09:30 Vancomycin Pharmacy To Dose 1 Each Each IV 05/10/24 09:29 QDAY PRN CONSULT Plan The patient is a 64-year-old female with significant past medical history of 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 Stroke alert was called, and underwent stroke workup. tPA not given due to out of window. On further interviewing, she reported that she has been taking some penicillin that was brought from [place] of long time ago. She also took Motrin x 2 in last 2 days. She admitted having fever, denied any chills, lightheadedness, chest pain, and any flank pain. Nephrology consultation was done for further management of ANA LAURA in CKD stage IIIa. 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 On admission, creatinine 5.9 and GFR 7. On admission ABG significant for acidemia with pH 7.23, pCO2 39, pO2 70. Chemistry panel revealed sodium 133, mild hyperkalemia, bicarb 15.1. ABG significant for pH 7.42 revealing improvement in acidemia, BUN 52, creatinine 4.9, EGFR 9, calcium 8.1, phosphorus 6.0. Urine electrolytes with creatinine 113, total protein 598, sodium 42 (>40 suggestive of ATN), potassium 33, chloride 27, and urea nitrogen 302. BUN/CR ratio <20 so less likely prerenal. Renal ultrasound significant for moderate bilateral renal parenchymal eschar formation, bilateral renal cortical thinning with no hydronephrosis. -Stop the offending agent, penicillin which is likely cause of possible ATN 04/08/2024: Labs were significant for hemoglobin trending down to 8.1 likely dilutional, BUN 41 and creatinine 4.4, phosphorus 5.8. Ordered ZAINAB screen, ANCA, antiproteinase 3, antimyeloperoxidase and complement level, and we will plan for renal biopsy if ANA LAURA doesn't resolve in a couple of days. -Continue to monitor renal panel -Patient will undergo 3.5 hours hemodialysis session x 1 this morning again, and we will plan for 3 L ultrafiltration goal. -Can consider trying bumex 1-2mg x1 to increase urine output. 04/10/2024: Her fingerstick blood sugar this morning was 483, hemoglobin 8.9, Chemistry panel significant for potassium 5.0, BUN 53, creatinine 5.6, and blood sugar 596. The patient is planned to undergo hemodialysis this morning. #Hypocalcemia, improved 04/05 #Hyperphosphatemia -Improving Secondary to ANA LAURA on CKD -Started on calcium carbonate 600 Mg twice daily -We will get phosphorus level tomorrow morning again after HD as after hemodialysis it significantly improved to 6.0, we will hold on sevelamer. -Continue to monitor renal panel #Hypertensive emergency, resolved #Acute encephalopathy #Stroke rule out #Hx of CVA 2018 #Acute nephrolithiasis #Hx of renal calculi #Acute hypoxemic respiratory failure #Community-acquired pneumonia #GEMMA/OHS on oxygen HS #NSTEMI type II (improving) #HTN, HLD #IDDM type II -Management deferred to primary hospitalist team. Thank you for your opportunity to participate nephrology team in this patient care. The patient's management plan was discussed with my attending physician MD Jose Serrano MD, PGY2 Attending Provider Attestation/Addendum Patient seen and examined with resident physician Dr. Nesbitt. Note reviewed, agree with findings and recommendations. Patient currently in ICU. Patient got intubated for hypoxic respiratory failure. Patient currently seen on dialysis. Tolerating dialysis without any problems. Hemodialysis for 3 hours, 2K, ultrafiltration 2-3 L, Epogen 6000, no heparin ordered. Plan of care discussed with the dialysis nurse. Please see dialysis flowsheet for further details. Critical care time more than 35 minutes regarding plan of care and disease management. Labs/medications reviewed. Plan of care discussed with ICU team. CSF fluid showed gram-positive cocci. On antibiotics. Neurology on the case. Unexplained weakness and altered mental status.
[2024-04-10] MEDS: INSULIN HUM REGULAR 1 UNIT/0.01 ML (PER UNIT) 15 UNIT IV (09:30)
--- NOTE | 2024-04-10 09:43 | PD.RESEVENT ---
Documentation for date of: 04/10/24 Event Note Event Note: Rapid response called around 9:20 AM this morning. Patient desatted to 86 on 15 L via nonrebreather. Aspirated and was unable to protect airway. RT suctioned, patient SpO2 increased to the high 80s on 15 L. Mentation at GCS 3, unable to protect airway and no longer safe for telemetry. ICU consulted and accepted patient.
--- NOTE | 2024-04-10 09:49 | PD.RESPRO ---
Documentation for date of: 04/10/24 Subjective Subjective Interval history: Rapid response: Patient met around 9:28 AM prior to rounds. Desatted to 86% on 15 L due to aspiration event. RT suctioned of bedside patient went up to the high 80s on 15 L. GCS of 3, unsafe for telemetry med. ICU consulted patient upgraded. Exam Vital Signs Temp Pulse Resp BP Pulse Ox O2 Del Method O2 Flow Rate 98.1 F 99 21 H 142/59 H 90 L High Flow Nasal Cannula 13 04/10/24 04:00 04/10/24 06:53 04/10/24 06:53 04/10/24 06:00 04/10/24 06:53 04/08/24 16:02 04/10/24 06:53 FiO2 80 04/09/24 08:02 Narrative Exam Constitutional: Altered, obese, GCS 3 Head: Normocephalic/Atraumatic Eyes: PERRL , no conjunctival injection , symmetrical lids. ENMT: Moist Mucous Membranes CVS: RRR, S1 and S2 present, no murmurs, rubs or gallops . RESP: CTAB,13 L via nonrebreather GI: Soft, distended, nontender throughout. MSK: No trauma or deformities or masses. Skin: Warm to touch, Dry. Neuro: GCS 11 (eyes 3, verbal 1, motor 5) moves all limbs spontaneously Objective Labs 04/10/24 04:38 04/10/24 07:44 Labs: Laboratory Results - last 24 hr 04/09/24 04/09/24 04/10/24 04:25 14:51 04:38 WBC 8.5 RBC 3.18 L Hgb 8.9 L Hct 29.7 L MCV 93 MCH 28.0 MCHC 30.0 L RDW Std Deviation 55.0 H Plt Count 288 D Neut % (Auto) 89 H Lymph % (Auto) 6 L [place] % (Auto) 4 Eos % (Auto) 0 Baso % (Auto) 0 Neut # (Auto) 7.5 Lymph # (Auto) 0.5 L [place] # (Auto) 0.3 Eos # (Auto) 0.0 Baso # (Auto) 0.0 Immature Gran # (Auto) 0.14 H Absolute Nucleated RBC 0.03 H Immature Gran % 2 H Nucleated RBC % 0 Smear Path Review Sent to Pathologist Sodium 137 Potassium 4.1 Chloride 100 Carbon Dioxide 26.2 Anion Gap 11 BUN 34 H Creatinine 4.3 H* D Estim Creat Clear Calc 13.5 L eGFR 11 L* BUN/Creatinine Ratio 8 L Glucose 252 H Calculated Osmolality 290 Calcium 9.0 Corrected Calcium Total Bilirubin AST ALT Alkaline Phosphatase Total Protein Albumin Globulin Albumin/Globulin Ratio 04/10/24 07:44 WBC RBC Hgb Hct MCV MCH MCHC RDW Std Deviation Plt Count Neut % (Auto) Lymph % (Auto) [place] % (Auto) Eos % (Auto) Baso % (Auto) Neut # (Auto) Lymph # (Auto) [place] # (Auto) Eos # (Auto) Baso # (Auto) Immature Gran # (Auto) Absolute Nucleated RBC Immature Gran % Nucleated RBC % Smear Path Review Sodium 137 Potassium 5.0 D Chloride 98 Carbon Dioxide 22.1 Anion Gap 17 H BUN 53 H Creatinine 5.6 H* D Estim Creat Clear Calc 10.3 L eGFR 8 L* BUN/Creatinine Ratio 9 L Glucose 596 H* D Calculated Osmolality 316 H Calcium 8.8 Corrected Calcium 8.9 Total Bilirubin 0.2 L AST 40 H ALT 22 Alkaline Phosphatase 112 Total Protein 7.5 Albumin 3.9 Globulin 3.6 H Albumin/Globulin Ratio 1.1 L ABG Interpretation ABG results: 04/05/24 04/06/24 04/06/24 13:11 05:17 13:37 ABG pH 7.23 L 7.23 L ABG pCO2 39 31 L ABG pO2 54 L* 70 L ABG HCO3 16 L 13 L ABG O2 Saturation 86 L 92 ABG Base Excess -11 L -13 L VBG pH 7.23 L VBG pCO2 34 L VBG pO2 35 VBG Base Excess -13 L 04/06/24 04/07/24 04/08/24 16:56 12:14 14:46 ABG pH 7.42 D 7.39 7.36 ABG pCO2 35 40 44 ABG pO2 69 L 79 L 40 L* D ABG HCO3 23 24 25 ABG O2 Saturation 94 94 71 L ABG Base Excess -2 -1 -1 VBG pH VBG pCO2 VBG pO2 VBG Base Excess 04/08/24 04/08/24 16:20 17:19 ABG pH 7.34 L 7.35 ABG pCO2 46 45 ABG pO2 36 L* 113 H D ABG HCO3 25 25 ABG O2 Saturation 63 L 97 ABG Base Excess -1 -1 VBG pH VBG pCO2 VBG pO2 VBG Base Excess Quality Measures Quality Measures VTE prophylaxis Assessment & Plan Assessment Current Active Medications: Generic Name Dose Route Start Last Admin Trade Name Freq PRN Reason Stop Dose Admin Acetaminophen 650 mg 04/05/24 23:06 Acetaminophen 325 Mg Tablet PO 05/05/24 23:05 Q6H PRN PAIN SCALE 1-3 (mild Acetaminophen 650 mg 04/05/24 23:06 Acetaminophen 325 Mg Tablet PO 05/05/24 23:05 Q6H PRN Fever >100 Hydrocodone Bitart/Acetaminophen 1 tab 04/05/24 23:06 Hydrocodone/Apap 10/325 Tab PO 04/10/24 23:05 Q4HR PRN PAIN SCALE 7-10 (Severe Albuterol/Ipratropium 3 ml 04/06/24 01:00 04/10/24 06:51 Albuterol/Ipratropium (Duoneb) Rt Princess 3 Ml Nebu INH 05/06/24 00:59 3 ml Q6HRRT DELMY Administration Aspirin 300 mg 04/06/24 12:15 04/10/24 08:22 Aspirin 300 Mg Supp NV 05/06/24 12:14 300 mg QDAY DELMY Administration Atorvastatin Calcium 80 mg 04/06/24 21:00 04/09/24 22:00 Atorvastatin Calcium 20 Mg Tablet PO 05/06/24 20:59 Not Given HS DELMY Calcium Carbonate 600 mg 04/06/24 14:45 04/09/24 22:00 Calcium Carbonate 600 Mg Tablet PO 05/06/24 14:44 Not Given BID DELMY Dextrose 25 ml 04/07/24 10:52 Dextrose 50%-Water Inj 50 Ml Syringe IV 05/07/24 10:51 Q15MIN PRN BG 50-70 responsive npo pt Dextrose 50 ml 04/07/24 10:52 Dextrose 50%-Water Inj 50 Ml Syringe IV 05/07/24 10:51 Q15MIN PRN BG <50 OR BG <70 & pt unresponsive Fentanyl Citrate 100 mcg 04/10/24 09:46 Fentanyl Cit Inj 50 Mcg/Ml Amp 2ml IV 04/10/24 09:47 X1 ONE Glucagon 1 mg 04/07/24 10:52 Glucagon Inj 1 Mg Vial IM Q15MIN PRN BG <70, and no IV access Heparin Sodium (Porcine) 3,300 unit 04/06/24 15:03 04/08/24 13:05 Heparin Sod Inj 1000 Unit/Ml Vial 10 Ml INDWELLCAT 04/20/24 15:02 3,300 unit PRN PRN Administration DIALYSIS Heparin Sodium (Porcine) 5,000 unit 04/09/24 08:00 04/10/24 05:18 Heparin Sod Inj 5000 Unit/Ml Vial SC 04/23/24 07:59 5,000 unit Q8HR DELMY Administration Albumin Human 25 gm in 100 mls @ 100 mls/min 04/06/24 08:27 04/08/24 10:03 Albuminar-25 Ivpb IV 100 mls/min PRN PRN Administration DIALYSIS Cefepime HCl 2 gm/ Sodium 50 mls @ 100 mls/hr 04/08/24 09:00 04/09/24 09:06 Chloride IV 04/15/24 08:59 100 mls/hr QDAY DELMY Administration Dexmedetomidine/Sodium Chloride 200 mcg in 50 mls @ 5.31 mls/hr 04/08/24 09:17 Precedex Ivpb IV 05/08/24 09:16 .Q9H25M PRN Per PROTOCOL Protocol 0.2 MCG/KG/HR Norepinephrine/Dextrose 8 mg in 250 mls @ 9.956 mls/hr 04/08/24 09:53 04/08/24 18:24 Levophed In D5w 8mg/250ml IV 05/08/24 09:52 0 mcg/kg/min .Q24H PRN 0 mls/hr PER PROTOCOL Titration Protocol 0.05 MCG/KG/MIN Valproic Acid 750 mg/ Sodium 57.5 mls @ 55 mls/hr 04/08/24 22:00 04/10/24 05:15 Chloride IV 05/08/24 21:59 55 mls/hr Q8HR DELMY Administration Methylprednisolone Sodium 104 mls @ 104 mls/hr 04/09/24 12:00 04/10/24 05:15 Succinate 250 mg/ Sodium IV 04/16/24 11:59 104 mls/hr Chloride Q6HR DELMY Administration Vancomycin/Sodium Chloride 200 mls @ 120 mls/hr 04/10/24 10:00 Vancomycin/Ns 1 Gm Ivpb IV 04/10/24 11:39 X1 ONE Fentanyl Citrate 2,500 mcg in 250 mls @ 2.5 mls/hr 04/10/24 09:47 Sublimaze Inj 2,500 Mcg/250 Ml Bag IV 04/15/24 09:46 .Q24H PRN PER PROTOCOL Protocol 25 MCG/HR Insulin Glargine 20 unit 04/10/24 09:00 04/10/24 08:22 Insulin Glargine (Lantus) 5 Unit/0.05 Ml (Per 5 Units) SC 05/10/24 08:59 20 unit QAM DELMY Administration Insulin Human Lispro 0 unit 04/09/24 10:28 04/10/24 05:21 Insulin Lispro (Admelog) 1 Unit/0.01 Ml Unit SC 05/07/24 11:59 6 unit Q6HR DELMY Administration Protocol Labetalol HCl 10 mg 04/05/24 23:55 Labetalol Inj 5 Mg/Ml Vial 20 Ml IVP 05/05/24 23:54 X1 PRN BP >220/110 Lidocaine HCl 9 ml 04/06/24 11:00 Lidocaine Inj Pf 1% 5 Ml Vial INFL X1 PRN LOCAL ANESTHESIA Protocol Ondansetron HCl 4 mg 04/05/24 23:06 Ondansetron Inj 2 Mg/Ml Inj 2 Ml IV 05/05/24 23:05 Q6H PRN NAUSEA OR VOMITING Protocol Oxycodone/Acetaminophen 1 tab 04/05/24 23:06 Oxycodone/Apap 5/325 Tablet PO 04/10/24 23:05 Q6H PRN PAIN SCALE 4-6 (Moderate Pantoprazole Sodium 40 mg 04/06/24 09:00 04/10/24 08:22 Pantoprazole Inj 40 Mg Vial IVP 05/06/24 08:59 40 mg QDAY DELMY Administration Pharmacy Consult 1 each 04/09/24 08:54 Pharmacy Renal Dose Adjustment 1 Ea XX 05/08/24 08:59 QDAY PRN protocol Pharmacy Consult 1 each 04/10/24 09:30 Vancomycin Pharmacy To Dose 1 Each Each IV 05/10/24 09:29 QDAY PRN CONSULT Rocuronium [place] 90 mg 04/10/24 09:46 Rocuronium Inj 10 Mg/Ml Vial 10 Ml IVP 04/10/24 09:47 X1 ONE
--- NOTE | 2024-04-10 09:52 | CHAP ---
Responded to Rapid Response. Said silent prayer in the hallway. No family present.
[2024-04-10 09:57] LABS: Base Excess -7 (-3-3); HCO3 23 mEq/L (20-26); Inspired O2, VO2 Liters 14 L/min; O2 Saturation 89 % (91-98); PCO2 75 mmHg (32.0-48.0); PO2 71 mmHg (83-108)
[2024-04-10] MEDS: ROCURONIUM INJ 10 MG/ML VIAL 10 ML 90 MG IVP (09:57)
[2024-04-10] MEDS: fentaNYL CIT INJ 50 mCg/ML AMP 2ML 100 MCG IV (09:57)
[2024-04-10 10:03] LABS: Allen Test Performed/OK; Puncture Site Left Radial
--- NOTE | 2024-04-10 10:07 | XR_ITS ---
Examination: AP chest single view Technique one AP portable semiupright chest single view Exam date and time: April 10, 2024 1025 hours Comparison April 09, 2024 INDICATIONS: Shortness of breath, patient unresponsive today post intubation FINDINGS: Endotracheal tube in the right mainstem bronchus Bilateral lung opacity most consistent with pneumonia Normal heart size Right internal jugular dialysis catheter satisfactory position Prominent vascular congestion Orogastric tube in the stomach IMPRESSION: Retract the tracheal tube 4 cm
--- NOTE | 2024-04-10 10:36 | XR_ITS ---
Examination: AP chest single view Technique one AP portable upright chest single view Exam date and time: April 10, 2024 1049 hours Comparison April 10, 2024 1025 hours INDICATIONS: Hypoxic respiratory failure position tracheal tube FINDINGS: Endotracheal tube tip currently 2.4 cm above [place] Unchanged bilateral edema and/or pneumonia Right internal jugular dialysis catheter tips SVC satisfactory position Orogastric tube is in the stomach IMPRESSION: Endotracheal tube tip 2.4 cm above [place]
[2024-04-10 11:04] LABS: Lactate (Lactic Acid) 1.5 mMol/L (0.4-2.0)
--- NOTE | 2024-04-10 11:13 | PD.INTPROC ---
Procedures Procedure Date / Time 04/10/24 1113 Intubation Indication(s): acute Resp Failure and inability to protect airway Informed consent obtained: procedure done urgently Time out done, and the following verified: correct patient, side and site and procedure Sedative: fentanyl Mg given: 100 Paralytic: rocuronium Mg given: 90 Laryngoscope: fiber optic video scope ET tube size: 7.5 ET tube uncuffed: No Tube secured depth (cm): 24 Tube secured location: lips Tube placement confirmation: visualized tube passing through cords, equal breath sounds bilaterally, no breath sounds over epigastrium and confirmation by capnometry Patient tolerated procedure: well and no complications EBL(ml): 0 Intubation complications: none
[2024-04-10 11:14] LABS: Beta Hydroxybutyrate 2.1 mmol/L (<0.6)
--- NOTE | 2024-04-10 11:22 | PD.RESPRO ---
Documentation for date of: 04/10/24 Subjective Subjective Interval history: Sofiya Vogt is a 64-year-old female with a past medical history of CVA in 2018 with residual left-sided deficits, nephrolithiasis, hypertension, and hyperlipidemia, diabetes mellitus, and anemia requiring transfusion who presented to the ED on 04/05 with altered mental status and slurred speech. Upon arrival to the ED, stroke alert was called. CT head negative, however patient was outside of TNK window. MRI brain recommended but given that patient continues to have altered mental status and cannot follow commands in addition to requiring HFNC, will not be able to obtain. Echo obtained on 04/05, negative bubble study and EF 55 to 60%. Carotid Doppler was poor study due to lack of patient cooperation. Labs obtained in ED showed creatinine of 5.4, which is significantly elevated from baseline of 1.0. Thus, TDC was placed and patient has since received 2 dialysis sessions (04/06, 04/07), however has not had any improvement in her mental status. Throughout hospital course, patient has had 3 rapid responses. On 04/06 rapid response for fever of 103 ?F, 04/07 for episode of twitching on right side of face, and again on 04/07 for episode of apnea for few seconds after dose of lorazepam. ICU was consulted given that patient has had increased oxygen requirements and altered mental status and evaluated if patient will require closer monitoring to protect her airways. 04/08: No acute overnight events reported. She was noted to have increased oxygen requirements after coming back from repeat CT head. She was originally on HFNC at 30 L/min, 50% FiO2 and is currently on 30 L/min and now 80% FiO2. Repeat CT head showed no gross hemorrhage or mass effect but patient motion is significantly degraded image quality. Patient noted to have less spontaneous movements compared to yesterday and contacted MRI regarding possibility of obtaining imaging. However, they will not be able to accommodate patients on high flow nor on BiPAP. Underwent third session of hemodialysis today, with removal of 3 L of fluid. Blood pressure dropped to 86/48 and was given Levophed. 04/09: No acute overnight events reported. Only had 30 cc of urine output the entire shift, 2.5 cc/h. Did not require Levophed or Precedex. Underwent lumbar puncture and evening of 04/08, noted to have opening pressure at 33 cm H2O and elevated protein and glucose. Also had an EEG that showed diffuse slowing, suggestive of diffuse encephalopathy of metabolic versus degenerative versus vascular origin. No epileptic waveforms noted but given that patient's right sided facial twitching and spontaneous movements have improved, will continue with valproate per recs. Neurology also recommended starting 1 g Solu-Medrol daily. Oxygen needs decreased from HFNC to oxy mask, and again attempted to obtain MRI but were unable due to oxy mask and body habitus. NG tube placed to start feeds given the patient has been n.p.o. since admission and will increase glargine from 10 to 15 units to accommodate. 04/10: No acute overnight events reported. At 9:30 AM, rapid response called due to O2 saturation of 86% on 15 L nonrebreather. Suspect possible aspiration event and RT subsequently suctioned with increase in O2 saturation to high 80s on 15 L. Upon assessment, GCS of 3 and determined that patient unable to protect her airways and was upgraded to ICU for RSI. At around 10:30 AM, patient underwent successful RSI. A.m. labs showed glucose of 596 with anion gap of 17 and beta hydroxybutyrate of 2.1, suspect due to recently starting high-dose steroids. Glargine was originally increased to accommodate from 10 to 15 units, but patient will now be started on 20 units glargine daily. ABG obtained prior to intubation showed pH 7.1, pCO2 75, and pO2 71. Repeat after intubation showed pH 7.12, pCO2 73, and pO2 75. Subsequent ABG ordered and will follow-up. Given that patient is now intubated, revisited MRI and we will attempt to obtain again in the afternoon. Will also attempt hemodialysis later today. Exam Vital Signs Temp Pulse Resp BP Pulse Ox O2 Del Method O2 Flow Rate 97.8 F 102 H 19 171/72 H 93 L Oxy Mask 13 04/10/24 08:00 04/10/24 08:00 04/10/24 08:00 04/10/24 08:00 04/10/24 08:00 04/10/24 08:00 04/10/24 08:00 FiO2 80 04/09/24 08:02 Narrative Exam General: mechanically ventliated, no sedation or pressors, obese, not following commands HEENT: NC/AT, NG tube in place, ET tube in place Cardiovascular: regular rate and rhythm, S1/S2 present, no murmurs appreciated Pulmonary: Clear to auscultation bilaterally Abdominal: obese/distended, soft, no guarding Musculoskeletal: no peripheral edema, peripheral pulses 2+ Skin: 2 peripheral lines, 1 arterial line, acanthosis nigricans Neuro: unable to follow commands, GCS 3 Objective Labs 04/12/24 04:23 04/12/24 04:23 Labs: Laboratory Results - last 24 hr 04/09/24 04/09/24 04/10/24 04:25 14:51 04:38 WBC 8.5 RBC 3.18 L Hgb 8.9 L Hct 29.7 L MCV 93 MCH 28.0 MCHC 30.0 L RDW Std Deviation 55.0 H Plt Count 288 D Neut % (Auto) 89 H Lymph % (Auto) 6 L [place] % (Auto) 4 Eos % (Auto) 0 Baso % (Auto) 0 Neut # (Auto) 7.5 Lymph # (Auto) 0.5 L [place] # (Auto) 0.3 Eos # (Auto) 0.0 Baso # (Auto) 0.0 Immature Gran # (Auto) 0.14 H Absolute Nucleated RBC 0.03 H Immature Gran % 2 H Nucleated RBC % 0 Smear Path Review Sent to Pathologist Puncture Site ABG pH ABG pCO2 ABG pO2 ABG HCO3 ABG O2 Saturation ABG Base Excess Oxygen Liter Flow Sodium 137 Potassium 4.1 Chloride 100 Carbon Dioxide 26.2 Anion Gap 11 BUN 34 H Creatinine 4.3 H* D Estim Creat Clear Calc 13.5 L eGFR 11 L* BUN/Creatinine Ratio 8 L Glucose 252 H Calculated Osmolality 290 Lactic Acid Calcium 9.0 Corrected Calcium Total Bilirubin AST ALT Alkaline Phosphatase Total Protein Albumin Globulin Albumin/Globulin Ratio Beta-Hydroxybutyrate/Acetoacetate 04/10/24 04/10/24 04/10/24 07:44 09:41 10:40 WBC RBC Hgb Hct MCV MCH MCHC RDW Std Deviation Plt Count Neut % (Auto) Lymph % (Auto) [place] % (Auto) Eos % (Auto) Baso % (Auto) Neut # (Auto) Lymph # (Auto) [place] # (Auto) Eos # (Auto) Baso # (Auto) Immature Gran # (Auto) Absolute Nucleated RBC Immature Gran % Nucleated RBC % Smear Path Review Puncture Site Left Radial ABG pH 7.10 L* D ABG pCO2 75 H* D ABG pO2 71 L D ABG HCO3 23 ABG O2 Saturation 89 L ABG Base Excess -7 L Oxygen Liter Flow 14 Sodium 137 Potassium 5.0 D Chloride 98 Carbon Dioxide 22.1 Anion Gap 17 H BUN 53 H Creatinine 5.6 H* D Estim Creat Clear Calc 10.3 L eGFR 8 L* BUN/Creatinine Ratio 9 L Glucose 596 H* D Calculated Osmolality 316 H Lactic Acid 1.5 Calcium 8.8 Corrected Calcium 8.9 Total Bilirubin 0.2 L AST 40 H ALT 22 Alkaline Phosphatase 112 Total Protein 7.5 Albumin 3.9 Globulin 3.6 H Albumin/Globulin Ratio 1.1 L Beta-Hydroxybutyrate/Acetoacetate 2.1 H ABG Interpretation ABG results: 04/05/24 04/06/24 04/06/24 13:11 05:17 13:37 ABG pH 7.23 L 7.23 L ABG pCO2 39 31 L ABG pO2 54 L* 70 L ABG HCO3 16 L 13 L ABG O2 Saturation 86 L 92 ABG Base Excess -11 L -13 L VBG pH 7.23 L VBG pCO2 34 L VBG pO2 35 VBG Base Excess -13 L 04/06/24 04/07/24 04/08/24 16:56 12:14 14:46 ABG pH 7.42 D 7.39 7.36 ABG pCO2 35 40 44 ABG pO2 69 L 79 L 40 L* D ABG HCO3 23 24 25 ABG O2 Saturation 94 94 71 L ABG Base Excess -2 -1 -1 VBG pH VBG pCO2 VBG pO2 VBG Base Excess 04/08/24 04/08/24 04/10/24 16:20 17:19 09:41 ABG pH 7.34 L 7.35 7.10 L* D ABG pCO2 46 45 75 H* D ABG pO2 36 L* 113 H D 71 L D ABG HCO3 25 25 23 ABG O2 Saturation 63 L 97 89 L ABG Base Excess -1 -1 -7 L VBG pH VBG pCO2 VBG pO2 VBG Base Excess Quality Measures Quality Measures VTE prophylaxis Advance care planning discussed with:: child Assessment & Plan Assessment Current Active Medications: Generic Name Dose Route Start Last Admin Trade Name Freq PRN Reason Stop Dose Admin Acetaminophen 650 mg 04/05/24 23:06 Acetaminophen 325 Mg Tablet PO 05/05/24 23:05 Q6H PRN PAIN SCALE 1-3 (mild Acetaminophen 650 mg 04/05/24 23:06 Acetaminophen 325 Mg Tablet PO 05/05/24 23:05 Q6H PRN Fever >100 Hydrocodone Bitart/Acetaminophen 1 tab 04/05/24 23:06 Hydrocodone/Apap 10/325 Tab PO 04/10/24 23:05 Q4HR PRN PAIN SCALE 7-10 (Severe Albuterol/Ipratropium 3 ml 04/06/24 01:00 04/10/24 06:51 Albuterol/Ipratropium (Duoneb) Rt Princess 3 Ml Nebu INH 05/06/24 00:59 3 ml Q6HRRT DELMY Administration Aspirin 300 mg 04/06/24 12:15 04/10/24 08:22 Aspirin 300 Mg Supp AR 05/06/24 12:14 300 mg QDAY DELMY Administration Atorvastatin Calcium 80 mg 04/06/24 21:00 04/09/24 22:00 Atorvastatin Calcium 20 Mg Tablet PO 05/06/24 20:59 Not Given HS DELMY Calcium Carbonate 600 mg 04/06/24 14:45 04/09/24 22:00 Calcium Carbonate 600 Mg Tablet PO 05/06/24 14:44 Not Given BID DELMY Dextrose 25 ml 04/07/24 10:52 Dextrose 50%-Water Inj 50 Ml Syringe IV 05/07/24 10:51 Q15MIN PRN BG 50-70 responsive npo pt Dextrose 50 ml 04/07/24 10:52 Dextrose 50%-Water Inj 50 Ml Syringe IV 05/07/24 10:51 Q15MIN PRN BG <50 OR BG <70 & pt unresponsive Glucagon 1 mg 04/07/24 10:52 Glucagon Inj 1 Mg Vial IM Q15MIN PRN BG <70, and no IV access Heparin Sodium (Porcine) 3,300 unit 04/06/24 15:03 04/08/24 13:05 Heparin Sod Inj 1000 Unit/Ml Vial 10 Ml INDWELLCAT 04/20/24 15:02 3,300 unit PRN PRN Administration DIALYSIS Heparin Sodium (Porcine) 5,000 unit 04/09/24 08:00 04/10/24 05:18 Heparin Sod Inj 5000 Unit/Ml Vial SC 04/23/24 07:59 5,000 unit Q8HR DELMY Administration Albumin Human 25 gm in 100 mls @ 100 mls/min 04/06/24 08:27 04/08/24 10:03 Albuminar-25 Ivpb IV 100 mls/min PRN PRN Administration DIALYSIS Cefepime HCl 2 gm/ Sodium 50 mls @ 100 mls/hr 04/08/24 09:00 04/09/24 09:06 Chloride IV 04/15/24 08:59 100 mls/hr QDAY DELMY Administration Dexmedetomidine/Sodium Chloride 200 mcg in 50 mls @ 5.31 mls/hr 04/08/24 09:17 Precedex Ivpb IV 05/08/24 09:16 .Q9H25M PRN Per PROTOCOL Protocol 0.2 MCG/KG/HR Norepinephrine/Dextrose 8 mg in 250 mls @ 9.956 mls/hr 04/08/24 09:53 04/08/24 18:24 Levophed In D5w 8mg/250ml IV 05/08/24 09:52 0 mcg/kg/min .Q24H PRN 0 mls/hr PER PROTOCOL Titration Protocol 0.05 MCG/KG/MIN Valproic Acid 750 mg/ Sodium 57.5 mls @ 55 mls/hr 04/08/24 22:00 04/10/24 05:15 Chloride IV 05/08/24 21:59 55 mls/hr Q8HR DELMY Administration Methylprednisolone Sodium 104 mls @ 104 mls/hr 04/09/24 12:00 04/10/24 05:15 Succinate 250 mg/ Sodium IV 04/16/24 11:59 104 mls/hr Chloride Q6HR DELMY Administration Vancomycin/Sodium Chloride 200 mls @ 120 mls/hr 04/10/24 10:00 Vancomycin/Ns 1 Gm Ivpb IV 04/10/24 11:39 X1 ONE Fentanyl Citrate 2,500 mcg in 250 mls @ 2.5 mls/hr 04/10/24 09:47 Sublimaze Inj 2,500 Mcg/250 Ml Bag IV 04/15/24 09:46 .Q24H PRN PER PROTOCOL Protocol 25 MCG/HR Propofol 1,000 mg in 100 mls @ 2.955 mls/hr 04/10/24 09:50 Diprivan Ivpb IV 05/10/24 09:49 .Q24H PRN PER PROTOCOL Protocol 5 MCG/KG/MIN Insulin Glargine 20 unit 04/10/24 09:00 04/10/24 08:22 Insulin Glargine (Lantus) 5 Unit/0.05 Ml (Per 5 Units) SC 05/10/24 08:59 20 unit QAM DELMY Administration Insulin Human Lispro 0 unit 04/09/24 10:28 04/10/24 05:21 Insulin Lispro (Admelog) 1 Unit/0.01 Ml Unit SC 05/07/24 11:59 6 unit Q6HR DELMY Administration Protocol Labetalol HCl 10 mg 04/05/24 23:55 Labetalol Inj 5 Mg/Ml Vial 20 Ml IVP 05/05/24 23:54 X1 PRN BP >220/110 Lidocaine HCl 9 ml 04/06/24 11:00 Lidocaine Inj Pf 1% 5 Ml Vial INFL X1 PRN LOCAL ANESTHESIA Protocol Ondansetron HCl 4 mg 04/05/24 23:06 Ondansetron Inj 2 Mg/Ml Inj 2 Ml IV 05/05/24 23:05 Q6H PRN NAUSEA OR VOMITING Protocol Oxycodone/Acetaminophen 1 tab 04/05/24 23:06 Oxycodone/Apap 5/325 Tablet PO 04/10/24 23:05 Q6H PRN PAIN SCALE 4-6 (Moderate Pantoprazole Sodium 40 mg 04/06/24 09:00 04/10/24 08:22 Pantoprazole Inj 40 Mg Vial IVP 05/06/24 08:59 40 mg QDAY DELMY Administration Pharmacy Consult 1 each 04/09/24 08:54 Pharmacy Renal Dose Adjustment 1 Ea XX 05/08/24 08:59 QDAY PRN protocol Pharmacy Consult 1 each 04/10/24 09:30 Vancomycin Pharmacy To Dose 1 Each Each IV 05/10/24 09:29 QDAY PRN CONSULT Plan Sofiya Vogt is a 64-year-old female with a past medical history of 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 She was upgraded to ICU on 04/08 and then downgraded on 04/10. However, rapid response called on 04/10 for desaturation (see event note for details) and upgraded on 04/10 for airway protection requiring RSI. Neurological #Acute encephalopathy, secondary to ischemic stroke Initially presented with FND (facial droop, slurred speech). CT head negative, including repeat although severely limited due to patient movement. MRI/MRA brain: 12 mm acute infarct of the anterior right brainstem (pontine level), 14 mm acute infarct of right basal ganglia. Status post EEG on 04/08: diffuse slowing, suggestive of encephalopathy of metabolic vs degenerative vs vascular origin without epileptic waveforms Status post lumbar puncture on 04/08: glucose 148 H, protein 54 H, WBC 4 wnl, GPC on cultures ? Neurology consulted, appreciate recommendations ? IV methylprednisolone 250 mg q6hr x5 days -> HOLDING secondary to significantly elevated blood sugars (see endo below) ? Valproate IV every 8 hours ? Follow-up autoimmune encephalitis panel, West Nile, HSV, and Cryptococcal studies ? Follow-up ZAINAB, ANCA, C3, C4 #? Meningitis ? Ampicillin 2 g to be given after dialysis on dialysis days ? Cefepime daily ? Vancomycin daily Cardiovascular #Elevated troponins Elevated on admission, but decreased from 1.3 to 1.2 and were no longer trended. ST depressions seen on telemetry on 04/10 and repeat troponin of 0.64 that increased to 0.98. Repeat EKG showed ST depressions in V2-V6 (most prominent in V4-6). ? Cardiology consulted, recommended aspirin, statin, and beta-vero if neurology is in agreement; no heparin drip ? Trend troponins Pulmonary #Acute hypoxic respiratory failure, secondary to ? aspiration After rapid response on 04/10, ABG obtained prior to RSI and showed pH 7.1, pCO2 75, pO2 71. Repeat ABG after RSI and mechanical ventilation showed pH 7.2, pCO2 58, and pO2 78. During intubation, foreign material (? tube feeds) were seen and could be possible etiology of desaturation. ? Mechanically ventilated: Tidal volume 350, RR 36, PEEP 14, FiO2 45% #[place], CAP vs aspiration CT chest on admission showed bilateral pneumonia. CXR 04/09 again showed bilateral pneumonia but improved compared to CXR on 04/07 04/10, RR due to desaturation with suspected aspiration event. ? Cefepime (04/07-) ? Previously on ceftriaxone and azithromycin (04/05-04/07), doxycycline (04/07-04/10) ? Follow-up bronchial aspirate culture 04/10 ? Follow-up repeat blood culture 04/10 ? Follow-up sputum culture 04/10 ? Follow-up blood culture 04/26: NGTD ? COVID, RSV, and flu negative ? Cocci IgM and IgG negative ? MRSA nares: negative Gastrointestinal #Transaminitis, stable Has received multiple antibiotics #GI prophylaxis ? Pantoprazole 40 mg IV daily #NG tube placed, 04/09 KUB showed Dobhoff NG tube in distal stomach/satisfactory position Dobhoff removed during MRI on 04/09 and replaced with another NG tube ? Set Decorator referral to begin NG tube feedings -> HOLDING tube feeds ? NG tube on intermittent suctioning Renal #Acute kidney injury, improving on HD Status post placement of TDC. Hemodialysis sessions 04/06, 04/07, 04/08, 04/09. ? HD per nephrology recommendations ? Renally dose medications ? Avoid nephrotoxic agents #History of staghorn calculi #Nephrolithiasis, 10 mm and 14 mm lower pole left renal calculi without hydronephrosis seen on CT A/P ? Urology consulted ? Not surgical candidate at this time ? No indication for percutaneous nephrostomy tube or ureteral stent ? Possible to have PCNL after patient is fully recovered #Hypercalcemia, resolved #Hyperphosphatemia ? Continue hemodialysis Endocine #Type 2 diabetes mellitus A1c 7.6%. Glucose has increased significantly in setting of IV steroids, but have been held on 04/10. Received 40 units glargine, 50 units lispro, 15 units regular insulin, 18 units corrective insulin on 04/10 as blood sugars are noted to be 483, 495, 495, 559, and 452 throughout the day. Beta hydroxybutyrate of 2.1 that decreased is 1.7, and we will hold off on insulin drip as blood sugars now responding SC insulin. ? SSI (scale 3) ? 20 units glargine every morning Heme #Chronic, normocytic anemia Slowly downtrending but stable. Has not had bloody bowel movements or gross hematuria. ? Continue to monitor Infectious disease #? Autoimmune encephalitis vs viral encephalitis vs CVA ? See neurological above #Community acquired pneumonia ? See respiratory above Hospital management: Disposition: intubated and mechanically ventilated on pressors Fluids: none Pressors: Levophed PRN Sedatives: Precedex PRN Diet: NPO, NG tube feedings help and on suctioning DVT prophylaxis: heparin SC q8hr GI prophylaxis: pantoprazole 40 mg IV Lines: peripheral, TDC, arterial line CODE STATUS: full code ----- Plan discussed with attending physician Dr. Bardales. Ion Andino MD PGY-1 Internal Medicine Attending Provider Attestation/Addendum pt seen and examined with resident, agree with above. In brief this is a 64yo F who has had a decrease in LOC since downgrade from ICU yesterday. This AM a rapid was called and she had declined to a GCS of 3 at that time. She was taken to the ICU for intubation for airway protection. She was found to have a respiratory acidosis with CO2 retention felt to be 2/2 obesity hypoventilation. After intubation she had repeat ABG which showed ongoing respiratory acidosis. Vent changes were made, an a line was placed. pt underwent a bronchoscopy which showed blood in the airways with no clear source. She underwent HD with volume removed and was able to go down for MRI. MRI showed acute CVA. Pts glucose was elevated throughout the day, steroids were held. pt given lantus and mult doses of lispro. beta hydroxy noted to be positive. case d/w ICU team and floor team d/w family at bedside labs, imaging, records reviewed ~ 118ccmin required for eval, exam, review, intervention, discussion and formulation of POC for this critically ill pt with acute hypercapneic resp failure at high risk for further and ongoing decompensation
[2024-04-10 11:54] LABS: Inspired Oxygen, FIO2 70 %
[2024-04-10 11:55] LABS: Base Excess -6 (-3-3); HCO3 24 mEq/L (20-26); O2 Saturation 90 % (91-98); PCO2 73 mmHg (32.0-48.0); PO2 75 mmHg (83-108)
[2024-04-10 11:59] LABS: Allen Test Performed/OK; Puncture Site Left Radial; pH, Arterial 7.12 (7.35-7.45)
[2024-04-10] MEDS: VANCOMYCIN/NS 1 GM IVPB 200 ML IV (13:12)
--- NOTE | 2024-04-10 13:18 | EKG_ITS ---
[facility] Test Date: 2024-04-10 Pat Name: MANSI GALVIN [facility] Gender[facility] Female [employer] Footballer: GRETTA : 1960 Requested By: Kristen Bertrand Order Number: [id number] Reading MD: Kristen Bertrand Measurements Intervals [place] Rate: 97 P: 55 ND: 127 QRS: -28 QRSD: 99 T: 145 QT: 365 QTc: 465 Interpretive Statements SINUS RHYTHM BORDERLINE LEFT AXIS DEVIATION ST DEVIATION AND MODERATE T-WAVE ABNORMALITY, CONSIDER ANTEROLATERAL ISCHEMIA Compared to ECG 04/06/2024 18:57:32 Sinus tachycardia no longer present T-wave abnormality still present Possible ischemia still present /store/S0/[id number]/ecg/[id number].pdf
--- NOTE | 2024-04-10 13:45 | PC.NURSE ---
MD Jimenez and residents in room placing ART line and performing bronchoscopy.
[2024-04-10] MEDS: LIDOCAINE HCL 1% 20 ML VIAL INFL (13:48)
--- NOTE | 2024-04-10 13:48 | PD.INTPROC ---
Procedures Procedure Date / Time 04/10/24 1348 Bronchoscopy Bronscopy indication(s): diagnostic BAL Informed consent obtained from: surrogate Time out done and the following verified: correct patient, side and site, procedure and patient position Oxygen delivery: 100% FIO2 Trachea: distal appears normal Katie: sharp in angle RUL & subsegmental branches: mucosa appears normal RML & subsegmental branches: other (bleeding noted with no source identified) RLL & subsegmental branches: other (bleeding noted with no source identified) PHILIP & subsegmental branches: other (bleeding noted with no source identified) LLL & subsegmental branches: other (bleeding noted with no source identified) EBL: 0 Patient tolerated procedure: well Complications: No Procedure comment: mucosa appeared pale and non erythematous, a few areas of submucosal bleeding noted, nilson blood noted throughout most of the airway however serial lavages returned clear fluid
--- NOTE | 2024-04-10 14:00 | PD.RESPROC ---
Procedures Procedure Date / Time 04/10/24 1330 Arterial Line Indication(s): frequent arterial line sampling Informed consent obtained: obtained from surrogate decision maker Time out done, and the following verified: correct patient, procedure and patient position Technique used: guide wire technique Post-Procedure: line sutured into place and dry sterile dressing placed Patient tolerated procedure: no complications EBL(ml): 5 Complications: none Site: right and radial Procedure comment: Entire procedure was done under the direct supervision of my senior resident physician, Dr. [facility], and attending, Dr. Bardales. Attending note: I was present for the procedure and able to assist as needed
[2024-04-10 14:17] LABS: Alanine Aminotransferase 24 U/L (10-49); Albumin, Serum 3.4 gm/dL (3.4-4.8); Albumin/Globulin Ratio 1.1 (1.2-2.2); Alkaline Phosphatase 113 U/L (46-116); Anion Gap 17 (7-16); Aspartate Amino Transferase 45 U/L (0-34); BUN/Creatinine Ratio 10 Ratio (12-20); Bilirubin,Total < 0.2 mg/dL (0.3-1.2); Blood Urea Nitrogen 62 mg/dL (9-23); Calcium 8.3 mg/dL (8.3-10.6); Calcium (Corrected) 8.8 mg/dL (8.5-10.1); Carbon Dioxide 20.1 mMol/L (20.0-31.0); Chloride 99 mMol/L (98-107); Estimated Creatinine Clearance 9.6 mL/min (>60); Globulin 3.2 gm/dL (2.3-3.5); Osmolality,Calculated 321 (275-295); Potassium 5.4 mMol/L (3.4-5.1); Sodium 136 mMol/L (136-145); Total Protein 6.6 gm/dL (5.7-8.2); eGFR 7 See Note
[2024-04-10 14:22] LABS: Glucose 679 mg/dL (74-106)
[2024-04-10 14:26] LABS: Troponin I 0.641 ng/mL (0.0-0.045)
[2024-04-10 14:35] LABS: Base Excess -5 (-3-3); HCO3 23 mEq/L (20-26); Inspired Oxygen, FIO2 45 %; O2 Saturation 93 % (91-98); PCO2 58 mmHg (32.0-48.0); PO2 78 mmHg (83-108)
[2024-04-10 14:37] LABS: Puncture Site Arterial Line
[2024-04-10 14:38] LABS: Allen Test Not Performed
[2024-04-10] MEDS: INSULIN LISPRO (AdmeLOG) 1 UNIT/0.01 ML UNIT 30 UNIT SC (15:01)
[2024-04-10 15:05] LABS: Beta Hydroxybutyrate 1.7 mmol/L (<0.6)
[2024-04-10 15:44] LABS: Base Excess -5 (-3-3); HCO3 23 mEq/L (20-26); Inspired Oxygen, FIO2 45 %; O2 Saturation 95 % (91-98); PCO2 52 mmHg (32.0-48.0); PO2 90 mmHg (83-108); pH, Arterial 7.25 (7.35-7.45)
[2024-04-10 15:45] LABS: Allen Test Not Performed; Puncture Site Arterial Line
[2024-04-10] MEDS: hydrALAZINE INJ 20 MG/ML VIAL 10 MG IV (16:04)
[2024-04-10 17:10] LABS: Alanine Aminotransferase 18 U/L (10-49); Albumin, Serum 3.6 gm/dL (3.4-4.8); Albumin/Globulin Ratio 1.1 (1.2-2.2); Alkaline Phosphatase 102 U/L (46-116); Anion Gap 16 (7-16); Aspartate Amino Transferase 33 U/L (0-34); BUN/Creatinine Ratio 10 Ratio (12-20); Bilirubin,Total 0.2 mg/dL (0.3-1.2); Blood Urea Nitrogen 63 mg/dL (9-23); Calcium 8.5 mg/dL (8.3-10.6); Calcium (Corrected) 8.8 mg/dL (8.5-10.1); Carbon Dioxide 21.6 mMol/L (20.0-31.0); Chloride 100 mMol/L (98-107); Creatinine (Component) 6.1 mg/dL (0.6-1.3); Estimated Creatinine Clearance 9.5 mL/min (>60); Globulin 3.4 gm/dL (2.3-3.5); Osmolality,Calculated 325 (275-295); Potassium 4.3 mMol/L (3.4-5.1); Sodium 138 mMol/L (136-145); eGFR 7 See Note
[2024-04-10 17:14] LABS: Glucose 670 mg/dL (74-106); Troponin I 0.983 ng/mL (0.0-0.045)
[2024-04-10] MEDS: Norepinephrine/D5W 8mg/250ml 8 MG/250 ML BAG 9.956 MG IV (17:41)
--- NOTE | 2024-04-10 18:21 | PC.NURSE ---
Pt on dialysis. BP continue to go down. MAP 52. UFR rerduced to 80, UF goal at 500 ml at this time. Levo was increased by RN. Will monitor
--- NOTE | 2024-04-10 18:27 | PC.NURSE ---
BP improved 135/67, MAP 89. UFR increased to 630, uf goal at 1.9L as tolerated. Will monitor
--- NOTE | 2024-04-10 18:56 | PC.NURSE ---
BP loiw again MAP 54. UFR decreased to 170 ml/hr, UF goal at 1L. Levo at 0.13 mcg/kg/min. Will monitor
--- NOTE | 2024-04-10 19:00 | PD.IMCONS ---
HPI Data of Consult Patient: new to practice Consult date: 04/10/24 Requesting Physician: Marsha Contreras DO Primary Care Provider: SUNNY Whitney Consult Narrative History of present illness: A 64-year-old female with past medical history of CVA in 2018 with residual left-sided deficits, type 2 diabetes mellitus, hyperlipidemia, essential hypertension, nephrolithiasis, chronic anemia was admitted to the hospital for altered mental status or acute encephalopathy on 04/05/2024. Patient presentation included slurred speech along with difficulty finding sentences Left-sided facial droop. Patient was admitted to the regular telemetry floor and started on stroke workup. Patient had ANA LAURA during the admission with worsening encephalopathy and was started on dialysis during this admission after placement of a dialysis catheter. Patient also had acute respiratory failure secondary to possible community-acquired pneumonia and obesity hypoventilation syndrome. MRI could not be done initially and because of the altered mental status and unable to follow commands. An echocardiogram was performed during the admission which showed an EF 55 to 60% with a negative bubble study and normal RV function. Initially patient was upgraded to ICU on 04/08/2023 for increased oxygen requirements as well as altered mental status for closer monitoring. Patient started on Levophed and IV she was hypotensive after dialysis and then she improved and plan was to downgrade her to the floors. Patient did have an episode of severe hypoxia and was unable to protect her airways and was intubated for airway protection. A bronchoscopy was also done which showed some blood but no clear evidence of bleeding. Eventually an MRI was done which showed 2 mm acute infarct of the anterior right brainstem pontine level and 14 mm acute infarct of the right basal ganglia. EEG showed diffuse slowing suggestive of encephalopathy left unclear etiology lumbar puncture was also abdominal urine encephalitis panel was also cell with a question of possible meningitis given no cephalopathy. Cardiology now consulted for further evaluation of elevated troponins. cc:: cc: Marsha Contreras DO Review of Systems Review of Systems ROS Unobtainable: due to endotracheal tube Past Medical History Past Medical History NEUROLOGIC: Positive Neurological Disorders, Cerebrovascular Accident and Transient Ischemic Attacks (TIA); Negative Seizures CARDIAC: Positive Cardiac Disorders, Myocardial Infarction, Angina, Hypercholesterolemia and Hypertension; Negative Congestive Heart Failure RESPIRATORY: Positive Respiratory Disorders, Asthma and Sleep Apnea; Negative Chronic Obstructive Pulmonary Disease (COPD) GASTROINTESTINAL: Positive Gastrointestinal Disorders, Gastroesophageal Reflux Disease and Obesity GENITOURINARY: Positive Genitourinary Disorders and Kidney Stones; Negative Renal Disease REPRODUCTIVE: Positive Previous Pregnancies MUSCULOSKELETAL: Positive Musculoskeletal Disorders and Arthritis ENDOCRINE: Positive Endocrine Disorders and Diabetes Mellitus Type 2; Negative Diabetes Mellitus Type 1 HEMATOLOGIC: Positive Anemia; Negative Blood Disorders or Sickle Cell Disease OTHER HISTORY: Positive Hospitalization; Negative Blood Transfusions, Anesthesia Reactions or Cancer Family History FAMILY HISTORY: Negative Family Cardiac Disorders Surgical History SURGICAL: Positive Abdominal Surgery and Section Social History SMOKING STATUS: Never smoker Meds Home Medications and Allergies Home Medications ?Medication ?Instructions ?Recorded ?Confirmed ?Type omeprazole 20 mg capsule,delayed 20 mg PO QDAY GERD ##0 06/06/15 03/20/24 History release (Prilosec) insulin glargine 100 unit/mL (3 10 unit subcut QDAY 01/07/20 03/20/24 History mL) subcutaneous pen (Basaglar KwikPen U-100 Insulin) insulin lispro 100 unit/mL 24 unit subcut TID 01/07/20 03/20/24 History subcutaneous pen (Admelog SoloStar U-100 Insulin lispro) acetaminophen 325 mg capsule 650 mg PO TID PRN Pain 12/26/21 04/07/24 History benazepril 40 mg tablet 40 mg PO DAILY 12/26/21 04/07/24 History ergocalciferol (vitamin D2) 1,250 1,250 mcg PO QWEEK 12/26/21 03/20/24 History mcg (50,000 unit) capsule linaclotide 72 mcg capsule 72 mcg PO QDAY 12/26/21 03/20/24 History (Linzess) metformin 1,000 mg tablet 1,000 mg PO BID 12/26/21 04/07/24 History rosuvastatin 40 mg tablet 40 mg PO QDAY 12/26/21 03/20/24 History amlodipine 10 mg tablet 10 mg PO QDAY 04/07/24 04/07/24 History furosemide 20 mg tablet 20 mg PO BID 04/07/24 04/07/24 History metoprolol tartrate 100 mg tablet 100 mg PO BID 04/07/24 04/07/24 History Allergies Allergy/AdvReac Type Severity Reaction Status Date / Time No Known Allergies Allergy Verified 03/20/24 15:08 Exam Vital Signs Temp Pulse Resp BP Pulse Ox O2 Del Method O2 Flow Rate 98.0 F 112 H 39 H 129/66 100 Mechanical Ventilation 13 04/11/24 12:00 04/11/24 17:15 04/11/24 14:53 04/11/24 17:15 04/11/24 17:15 04/11/24 04:15 04/10/24 20:26 FiO2 45 04/11/24 16:00 Narrative Exam General: Alert and oriented x 0. Intubated on mechanical ventilation. Eyes: Pupils are equal and reactive to light bilaterally. HEENT: Atraumatic, normocephalic. Difficult to assess JVD. Mucosa moist. Cardiovascular: Normal S1 and S2. Mildly tachycardic, 2 or 6 systolic murmur at the apex. Peripheral edema noted Respiratory: No respiratory distress. Lungs are clear to auscultation bilaterally. No wheezing or crackles heard. Abdomen: Soft, nontender, nondistended. Skin: No rash. Warm to touch. Musculoskeletal: No gross injuries. Neuro: Limited neuroexam as patient is intubated and sedated Results Labs 04/11/24 04:15 04/11/24 19:42 Labs: Short CBC 04/11/24 Range/Units 04:15 WBC 9.9 (3.6-11.0) Thou/mm3 Hgb 8.1 L (12.0-16.0) g/dL Hct 25.9 L (36.0-46.0) % Plt Count 298 (140-440) Thou/mm3 BMP 04/10/24 04/11/24 04/11/24 20:32 01:28 04:15 Sodium 138 139 Potassium 3.2 L D 3.5 3.4 Chloride 98 98 Carbon Dioxide 22.4 23.0 BUN 36 H 51 H Creatinine 3.8 H D 4.7 H* D Glucose 359 H D 350 H Calcium 8.5 8.7 Cardiac Enzymes 04/10/24 04/11/24 Range/Units 23:00 07:45 Troponin I 1.814 H* D 1.854 H* (0.0-0.045) ng/mL Liver Function 04/10/24 04/11/24 Range/Units 20:32 04:15 Total Bilirubin 0.3 0.3 (0.3-1.2) mg/dL AST 34 28 (0-34) U/L ALT 23 18 (10-49) U/L Alkaline Phosphatase 116 98 (46-116) U/L Albumin 3.8 3.6 (3.4-4.8) gm/dL ABG Interpretation ABG results: 04/05/24 04/06/24 04/06/24 13:11 05:17 13:37 ABG pH 7.23 L 7.23 L ABG pCO2 39 31 L ABG pO2 54 L* 70 L ABG HCO3 16 L 13 L ABG O2 Saturation 86 L 92 ABG Base Excess -11 L -13 L VBG pH 7.23 L VBG pCO2 34 L VBG pO2 35 VBG Base Excess -13 L 04/06/24 04/07/24 04/08/24 16:56 12:14 14:46 ABG pH 7.42 D 7.39 7.36 ABG pCO2 35 40 44 ABG pO2 69 L 79 L 40 L* D ABG HCO3 23 24 25 ABG O2 Saturation 94 94 71 L ABG Base Excess -2 -1 -1 VBG pH VBG pCO2 VBG pO2 VBG Base Excess 04/08/24 04/08/24 04/10/24 16:20 17:19 09:05 ABG pH 7.34 L 7.35 Cancelled ABG pCO2 46 45 Cancelled ABG pO2 36 L* 113 H D Cancelled ABG HCO3 25 25 Cancelled ABG O2 Saturation 63 L 97 Cancelled ABG Base Excess -1 -1 Cancelled VBG pH VBG pCO2 VBG pO2 VBG Base Excess 04/10/24 04/10/24 04/10/24 09:41 11:45 14:26 ABG pH 7.10 L* D 7.12 L* 7.20 L ABG pCO2 75 H* D 73 H* 58 H D ABG pO2 71 L D 75 L 78 L ABG HCO3 23 24 23 ABG O2 Saturation 89 L 90 L 93 ABG Base Excess -7 L -6 L -5 L VBG pH VBG pCO2 VBG pO2 VBG Base Excess 04/10/24 04/11/24 04/11/24 15:21 05:29 17:04 ABG pH 7.25 L 7.40 D 7.39 ABG pCO2 52 H 40 D 40 ABG pO2 90 93 74 L ABG HCO3 23 25 24 ABG O2 Saturation 95 98 93 ABG Base Excess -5 L 0 -1 VBG pH VBG pCO2 VBG pO2 VBG Base Excess Assessment and Plan Additional Assessment & Plan Additional Plan: A 64-year-old female with past medical history of CVA in 2018 with residual left-sided deficits, type 2 diabetes mellitus, hyperlipidemia, essential hypertension, nephrolithiasis, chronic anemia was admitted to the hospital for altered mental status or acute encephalopathy on 04/05/2024. Patient presentation included slurred speech along with difficulty finding sentences Left-sided facial droop. Patient was admitted to the regular telemetry floor and started on stroke workup. Patient had ANA LAURA during the admission with worsening encephalopathy and was started on dialysis during this admission after placement of a dialysis catheter. Patient also had acute respiratory failure secondary to possible community-acquired pneumonia and obesity hypoventilation syndrome. MRI could not be done initially and because of the altered mental status and unable to follow commands. An echocardiogram was performed during the admission which showed an EF 55 to 60% with a negative bubble study and normal RV function. Initially patient was upgraded to ICU on 04/08/2023 for increased oxygen requirements as well as altered mental status for closer monitoring. Patient started on Levophed and IV she was hypotensive after dialysis and then she improved and plan was to downgrade her to the floors. Patient did have an episode of severe hypoxia and was unable to protect her airways and was intubated for airway protection. A bronchoscopy was also done which showed some blood but no clear evidence of bleeding. Eventually an MRI was done which showed 2 mm acute infarct of the anterior right brainstem pontine level and 14 mm acute infarct of the right basal ganglia. EEG showed diffuse slowing suggestive of encephalopathy left unclear etiology lumbar puncture was also abdominal urine encephalitis panel was also cell with a question of possible meningitis given no cephalopathy. Cardiology now consulted for further evaluation of elevated troponins. Assessment and plan: 1. Acute stroke/CVA 2. Acute encephalopathy-secondary to stroke versus possible meningitis and encephalitis being ruled out versus metabolic encephalopathy. 3. Elevated troponins-mostly NSTEMI type II from supply/demand mismatch. 4. Acute hypoxic respiratory failure s/p intubation and sedation on mechanical ventilation 5. Community-acquired pneumonia 6. End-stage renal disease on hemodialysis-new onset 7. Nephrolithiasis-10 mm and 14 mm stones on the left side without hydronephrosis. 8. Essential hypertension 9. Diabetes mellitus 10. Hyperlipidemia 11. Chronic anemia 12. Obesity with possible obesity ventilation syndrome and GEMMA Cardiology was consulted for elevated troponins. Review of the chart showed that the patient's initial troponin was 1.3 and then decreased to 1.2 on admission and then no further troponins were drawn and today the troponins were done again and which were elevated at 0.64 and then continue to increase at 0.98. An EKG was performed which showed ST depressions in multiple leads except for lead III and V1 with 0.[address] elevation in lead aVR. Patient is intubated and sedated unable to provide any history. Patient is at increased risk for CAD given her multiple risk factors as noted above and mostly NSTEMI type II in the setting of supply/demand mismatch. Given the EKG finding patient was possible underlying CAD versus now disease and will need further ischemic evaluation at later point of time when the patient completely improves from the stroke. Echocardiogram reviewed which showed normal ejection fraction couple of days ago 04/08/2024 with any 55 to 60% with normal LV and RV function. No regional wall motion abnormalities. Recommend aspirin statin and beta-vero if blood pressure is permissible. No need of any heparin drip at the present point of time as patient was also found to have some blood during the bronchoscopy and also has an acute stroke. Patient presented with acute encephalopathy and primary team treating for meningitis and ruling out encephalitis. Patient also has acute stroke with the 12M acute infection anterior right mainstem as well as 40 mm acute infarct in the right basal ganglia. EEG also completed with diffuse slowing suggestive of encephalopathy. Neurology following. Acute hypoxic respiratory failure on mechanical ventilation as patient was hypoxic as well as unable to maintain her airway and questionable blood seen during the bronchoscopy and patient also being treated for community-acquired pneumonia. Patient does have recent acute kidney injury started on hemodialysis during this admission and nephrology following the patient closely. Further fluid management as per nephrology and diastolic function could not be evaluated on the echo because of the poor images. Patient is a significant retrolithiasis and neurology was consulted during the admission who did not recommend any emergent surgery or ureteral stent placement and recommended outpatient workup for the same Management of rest of the medical conditions as per primary team and other consultants. Thank you for the consult and allowing me to participate in the care of the patient. Cardiology will continue to follow. Chad Ngo M.D. Interventional Cardiology
[2024-04-10] MEDS: INSULIN LISPRO (AdmeLOG) 1 UNIT/0.01 ML UNIT 20 UNIT SC (19:10)
--- NOTE | 2024-04-10 19:27 | PC.NURSE ---
BP still low. Levo was increased to 0.21. If BP willnot improved, will d/c HD.
[2024-04-10] MEDS: EPOETIN ALFA-EPBX INJ 10,000 UNIT/ML VIAL (NON-ESRD) 10000 UNIT SC (19:30)
--- NOTE | 2024-04-10 19:34 | PC.NURSE ---
BP improved, UF back on. UFR at 680. Will monitor
--- NOTE | 2024-04-10 19:49 | PC.NURSE ---
BP better 132/56. UFR increased to 820. Goal set at 1.9 L as ramiro. Pt has 1 hr left on HD. Will monitor
[2024-04-10] MEDS: CLOPIDOGREL BISULFATE 75 MG TABLET PO (19:52)
[2024-04-10] MEDS: CALCIUM CARBONATE 600 MG TABLET PO (20:01)
[2024-04-10] MEDS: ATORVASTATIN CALCIUM 20 MG TABLET 80 MG PO (20:02)
--- NOTE | 2024-04-10 20:05 | PC.NURSE ---
tx discontinue with 53 mins left on HD due to low BP (art. line)78/41, and unable to get left upper arm BP. All blood returned. Able to removed 700 ml of fluid only. Report given to Orlando ROSALES
[2024-04-10] MEDS: HEPARIN SOD INJ 1000 UNIT/ML VIAL 10 ML 3300 UNIT INDWELLCAT (20:13)
[2024-04-10] MEDS: Ampicillin Inj 2,000 MG in SODIUM CHLORIDE 0.9% (P) 100 ML 200 MG IV (21:19)
[2024-04-10 21:34] LABS: Alanine Aminotransferase 23 U/L (10-49); Albumin, Serum 3.8 gm/dL (3.4-4.8); Alkaline Phosphatase 116 U/L (46-116); Anion Gap 18 (7-16); Aspartate Amino Transferase 34 U/L (0-34); BUN/Creatinine Ratio 9 Ratio (12-20); Bilirubin,Total 0.3 mg/dL (0.3-1.2); Blood Urea Nitrogen 36 mg/dL (9-23); Calcium 8.5 mg/dL (8.3-10.6); Calcium (Corrected) 8.7 mg/dL (8.5-10.1); Carbon Dioxide 22.4 mMol/L (20.0-31.0); Chloride 98 mMol/L (98-107); Creatinine (Component) 3.8 mg/dL (0.6-1.3); Estimated Creatinine Clearance 15.2 mL/min (>60); Glucose 359 mg/dL (74-106); Osmolality,Calculated 297 (275-295); Potassium 3.2 mMol/L (3.4-5.1); Sodium 138 mMol/L (136-145); Total Protein 7.8 gm/dL (5.7-8.2); eGFR 13 See Note
--- NOTE | 2024-04-10 23:14 | PC.NURSE ---
per MD Bueno, hold tube feeding for now
[2024-04-10] MEDS: POTASSIUM CHL 10 mEq IVPB 10 MEQ/100 ML BAG 100 MEQ IV (23:33)
--- NOTE | 2024-04-10 23:40 | PD.NEUROPROG ---
Documentation for date of: 04/10/24 Subjective Subjective Interval history: Patient was seen in telemetry today. Continues to be somnolent, aphasic, got intubated and remains on mechanical ventilatory support. Patient did get the MRI done that showed acute infarction involving the pontine area and right basal ganglia. Exam - Neurology Vital Signs Temp Pulse Resp BP Pulse Ox O2 Del Method O2 Flow Rate 97.5 F 83 38 H 127/62 98 Mechanical Ventilation 13 04/10/24 20:26 04/10/24 23:01 04/10/24 22:55 04/10/24 23:01 04/10/24 23:01 04/10/24 16:35 04/10/24 20:26 FiO2 45 04/10/24 22:55 Narrative Exam GENERAL APPEARANCE: Well-developed, obese built female in mild distress. HEENT: Normocephalic, atraumatic, extraocular movements intact. Pupils: Equal reacting to light NECK: Supple, no JVD or bruits. CARDIOVASULAR: Heart: S1, S2 heard, regular without S3-S4 or murmur no rubs or gallops. LUNGS/CHEST: Clear to auscultation bilaterally. No rails, rhonchi, or wheezing. Normal inspection. ABDOMEN: Soft, nontender, with normal bowel sounds. No pulsatile masses. No rebound, rigidity, or guarding. Normal inspection and palpation. EXTREMITIES: Normal inspection and palpation. No edema, clubbing or cyanosis. SKIN: Warm and dry without rashes. Normal inspection. MUSCULOSKELETAL: No cervical, thoracic, lumbar or midline bony tenderness. Normal inspection. NEURO: Somnolent, not responsive to verbal commands, some intermittent purposeful movements noted in both upper and lower extremities. No more myoclonic twitching in right hemiface noted. No signs of meningeal irritation noted. Rest of the exam limited secondary to mental status PSYCHIATRIC: Limited Objective Labs 04/10/24 04:38 04/10/24 20:32 Labs: Laboratory Results - last 24 hr 04/10/24 04/10/24 04/10/24 04:38 07:44 09:05 WBC 8.5 RBC 3.18 L Hgb 8.9 L Hct 29.7 L MCV 93 MCH 28.0 MCHC 30.0 L RDW Std Deviation 55.0 H Plt Count 288 D Neut % (Auto) 89 H Lymph % (Auto) 6 L [place] % (Auto) 4 Eos % (Auto) 0 Baso % (Auto) 0 Neut # (Auto) 7.5 Lymph # (Auto) 0.5 L [place] # (Auto) 0.3 Eos # (Auto) 0.0 Baso # (Auto) 0.0 Immature Gran # (Auto) 0.14 H Absolute Nucleated RBC 0.03 H Immature Gran % 2 H Nucleated RBC % 0 Puncture Site Cancelled ABG pH Cancelled ABG pCO2 Cancelled ABG pO2 Cancelled ABG HCO3 Cancelled ABG O2 Saturation Cancelled ABG Base Excess Cancelled Oxygen Liter Flow Cancelled FiO2 Cancelled Sodium 137 Potassium 5.0 D Chloride 98 Carbon Dioxide 22.1 Anion Gap 17 H BUN 53 H Creatinine 5.6 H* D Estim Creat Clear Calc 10.3 L eGFR 8 L* BUN/Creatinine Ratio 9 L Glucose 596 H* D Calculated Osmolality 316 H Lactic Acid Calcium 8.8 Corrected Calcium 8.9 Total Bilirubin 0.2 L AST 40 H ALT 22 Alkaline Phosphatase 112 Troponin I Total Protein 7.5 Albumin 3.9 Globulin 3.6 H Albumin/Globulin Ratio 1.1 L Beta-Hydroxybutyrate/Acetoacetate 04/10/24 04/10/24 04/10/24 09:41 10:40 11:45 WBC RBC Hgb Hct MCV MCH MCHC RDW Std Deviation Plt Count Neut % (Auto) Lymph % (Auto) [place] % (Auto) Eos % (Auto) Baso % (Auto) Neut # (Auto) Lymph # (Auto) [place] # (Auto) Eos # (Auto) Baso # (Auto) Immature Gran # (Auto) Absolute Nucleated RBC Immature Gran % Nucleated RBC % Puncture Site Left Radial Left Radial ABG pH 7.10 L* D 7.12 L* ABG pCO2 75 H* D 73 H* ABG pO2 71 L D 75 L ABG HCO3 23 24 ABG O2 Saturation 89 L 90 L ABG Base Excess -7 L -6 L Oxygen Liter Flow 14 FiO2 70 Sodium Potassium Chloride Carbon Dioxide Anion Gap BUN Creatinine Estim Creat Clear Calc eGFR BUN/Creatinine Ratio Glucose Calculated Osmolality Lactic Acid 1.5 Calcium Corrected Calcium Total Bilirubin AST ALT Alkaline Phosphatase Troponin I Total Protein Albumin Globulin Albumin/Globulin Ratio Beta-Hydroxybutyrate/Acetoacetate 2.1 H 04/10/24 04/10/24 04/10/24 12:00 14:26 14:55 WBC RBC Hgb Hct MCV MCH MCHC RDW Std Deviation Plt Count Neut % (Auto) Lymph % (Auto) [place] % (Auto) Eos % (Auto) Baso % (Auto) Neut # (Auto) Lymph # (Auto) [place] # (Auto) Eos # (Auto) Baso # (Auto) Immature Gran # (Auto) Absolute Nucleated RBC Immature Gran % Nucleated RBC % Puncture Site Arterial Line ABG pH 7.20 L ABG pCO2 58 H D ABG pO2 78 L ABG HCO3 23 ABG O2 Saturation 93 ABG Base Excess -5 L Oxygen Liter Flow FiO2 45 Sodium 136 Potassium 5.4 H Chloride 99 Carbon Dioxide 20.1 Anion Gap 17 H BUN 62 H Creatinine 6.0 H* Estim Creat Clear Calc 9.6 L eGFR 7 L* BUN/Creatinine Ratio 10 L Glucose 679 H* D Calculated Osmolality 321 H Lactic Acid Calcium 8.3 Corrected Calcium 8.8 Total Bilirubin < 0.2 L AST 45 H ALT 24 Alkaline Phosphatase 113 Troponin I 0.641 H* Total Protein 6.6 Albumin 3.4 D Globulin 3.2 Albumin/Globulin Ratio 1.1 L Beta-Hydroxybutyrate/Acetoacetate 1.7 H 04/10/24 04/10/24 04/10/24 15:21 15:31 20:32 WBC RBC Hgb Hct MCV MCH MCHC RDW Std Deviation Plt Count Neut % (Auto) Lymph % (Auto) [place] % (Auto) Eos % (Auto) Baso % (Auto) Neut # (Auto) Lymph # (Auto) [place] # (Auto) Eos # (Auto) Baso # (Auto) Immature Gran # (Auto) Absolute Nucleated RBC Immature Gran % Nucleated RBC % Puncture Site Arterial Line ABG pH 7.25 L ABG pCO2 52 H ABG pO2 90 ABG HCO3 23 ABG O2 Saturation 95 ABG Base Excess -5 L Oxygen Liter Flow FiO2 45 Sodium 138 138 Potassium 4.3 D 3.2 L D Chloride 100 98 Carbon Dioxide 21.6 22.4 Anion Gap 16 18 H BUN 63 H 36 H Creatinine 6.1 H* 3.8 H D Estim Creat Clear Calc 9.5 L 15.2 L eGFR 7 L* 13 L* BUN/Creatinine Ratio 10 L 9 L Glucose 670 H* 359 H D Calculated Osmolality 325 H 297 H Lactic Acid Calcium 8.5 8.5 Corrected Calcium 8.8 8.7 Total Bilirubin 0.2 L 0.3 AST 33 34 ALT 18 23 Alkaline Phosphatase 102 116 Troponin I 0.983 H* D Total Protein 7.0 7.8 Albumin 3.6 3.8 Globulin 3.4 4.0 H Albumin/Globulin Ratio 1.1 L 1.0 L Beta-Hydroxybutyrate/Acetoacetate ABG Interpretation ABG results: 04/05/24 04/06/24 04/06/24 13:11 05:17 13:37 ABG pH 7.23 L 7.23 L ABG pCO2 39 31 L ABG pO2 54 L* 70 L ABG HCO3 16 L 13 L ABG O2 Saturation 86 L 92 ABG Base Excess -11 L -13 L VBG pH 7.23 L VBG pCO2 34 L VBG pO2 35 VBG Base Excess -13 L 04/06/24 04/07/24 04/08/24 16:56 12:14 14:46 ABG pH 7.42 D 7.39 7.36 ABG pCO2 35 40 44 ABG pO2 69 L 79 L 40 L* D ABG HCO3 23 24 25 ABG O2 Saturation 94 94 71 L ABG Base Excess -2 -1 -1 VBG pH VBG pCO2 VBG pO2 VBG Base Excess 04/08/24 04/08/24 04/10/24 16:20 17:19 09:05 ABG pH 7.34 L 7.35 Cancelled ABG pCO2 46 45 Cancelled ABG pO2 36 L* 113 H D Cancelled ABG HCO3 25 25 Cancelled ABG O2 Saturation 63 L 97 Cancelled ABG Base Excess -1 -1 Cancelled VBG pH VBG pCO2 VBG pO2 VBG Base Excess 04/10/24 04/10/24 04/10/24 09:41 11:45 14:26 ABG pH 7.10 L* D 7.12 L* 7.20 L ABG pCO2 75 H* D 73 H* 58 H D ABG pO2 71 L D 75 L 78 L ABG HCO3 23 24 23 ABG O2 Saturation 89 L 90 L 93 ABG Base Excess -7 L -6 L -5 L VBG pH VBG pCO2 VBG pO2 VBG Base Excess 04/10/24 15:21 ABG pH 7.25 L ABG pCO2 52 H ABG pO2 90 ABG HCO3 23 ABG O2 Saturation 95 ABG Base Excess -5 L VBG pH VBG pCO2 VBG pO2 VBG Base Excess Assessment & Plan Assessment and plan (1) Altered mental status: Status: Acute Assessment and plan: CSF analysis: Insignificant Will hold off on steroids, continue with the Depakote for controlling myoclonic jerks in the face MRI brain showed acute infarction involving the pontine area and right basal ganglia. Will add aspirin MN 300 mg and Plavix 75 mg for prophylaxis along with statin. Noted significant intracranial stenosis in the MRA even though images are degraded from motion. (2) ANA LAURA (acute kidney injury): Status: Acute Assessment and plan: Going to be on dialysis (3) Non-ST elevation (NSTEMI) myocardial infarction: Status: Acute Assessment and plan: cardiology consulted, recommended aspirin and statin (4) Acute hypoxic respiratory failure: Status: Acute Assessment and plan: Got intubated and on mechanical ventilatory support (5) Accelerated hypertension: Status: Acute Assessment and plan: Blood pressure before dialysis today was in the 200s Dropped following dialysis to the extent of needing Levophed
[2024-04-11] VITALS (117 sets, daily range): BP systolic 80–226; BP diastolic 39–105; PULSE 78–186; RESP 16–42; TEMP 36.1–37.1; O2SAT 96–100; BMI 41.0
[2024-04-11 00:25] LABS: Troponin I 1.814 ng/mL (0.0-0.045)
[2024-04-11] MEDS: INSULIN LISPRO (AdmeLOG) 1 UNIT/0.01 ML UNIT 15 UNIT SC (00:30)
[2024-04-11 02:12] LABS: Potassium 3.5 mMol/L (3.4-5.1)
[2024-04-11] MEDS: ALBUTEROL/IPRATROPIUM (Duoneb) RT SOL 3 ML NEBU INH ×5 (02:17→23:25)
[2024-04-11] MEDS: DEXMEDETOMIDINE 200 MCG IVPB 200 MCG/50 ML BOTTLE 5.31 MCG IV (02:26)
[2024-04-11] MEDS: INSULIN LISPRO (AdmeLOG) 1 UNIT/0.01 ML UNIT 20 UNIT SC ×2 (02:32→16:44)
[2024-04-11] MEDS: VALPROATE SOD INJ 750 MG in SODIUM CHLORIDE 0.9% 50 ML 55 MG IV ×3 (05:03→21:40)
[2024-04-11] MEDS: HEPARIN SOD INJ 5000 UNIT/ML VIAL SC ×3 (05:08→21:40)
[2024-04-11 05:41] LABS: Base Excess 0 (-3-3); HCO3 25 mEq/L (20-26); Inspired Oxygen, FIO2 21 %; O2 Saturation 98 % (91-98); PCO2 40 mmHg (32.0-48.0); PO2 93 mmHg (83-108)
[2024-04-11 05:43] LABS: Allen Test Not Performed; Puncture Site Arterial Line
[2024-04-11 05:56] LABS: Basophils % (Auto) 0 % (0-2.5); Eosinophils % (Auto) 0 % (0-10); Hematocrit 25.9 % (36.0-46.0); Immature Granulocytes % (Auto) 2 % (0-0); Lymphocytes # (Auto) 0.4 Thou/mm3 (1.0-4.8); Lymphocytes % (Auto) 4 % (10-50); Mean Corpuscular HGB Conc 31.3 g/dl (31.0-37.0); Mean Corpuscular Volume 90 fL (80-100); Monocytes # (Auto) 0.7 Thou/mm3 (0.0-0.8); Monocytes % (Auto) 7 % (0-12); Neutrophils # (Auto) 8.5 Thou/mm3 (1.8-7.7); Neutrophils % (Auto) 86 % (37-80); Nucleated Red Blood Cell # 0.04 Thou/mm3 (0.00-0.00); Nucleated Red Blood Cell % 0 /100 WBC (0); Platelet Count 298 Thou/mm3 (140-440); RDW Standard Deviation 50.8 fL (36.4-46.3); Red Blood Count 2.89 Miln/mm3 (4.00-5.20); White Blood Count 9.9 Thou/mm3 (3.6-11.0)
[2024-04-11 06:03] LABS: Hemoglobin 8.1 g/dL (12.0-16.0)
[2024-04-11 06:36] LABS: Alanine Aminotransferase 18 U/L (10-49); Albumin, Serum 3.6 gm/dL (3.4-4.8); Albumin/Globulin Ratio 1.1 (1.2-2.2); Alkaline Phosphatase 98 U/L (46-116); Anion Gap 18 (7-16); Aspartate Amino Transferase 28 U/L (0-34); BUN/Creatinine Ratio 11 Ratio (12-20); Bilirubin,Total 0.3 mg/dL (0.3-1.2); Blood Urea Nitrogen 51 mg/dL (9-23); Calcium 8.7 mg/dL (8.3-10.6); Chloride 98 mMol/L (98-107); Creatinine (Component) 4.7 mg/dL (0.6-1.3); Globulin 3.3 gm/dL (2.3-3.5); Glucose 350 mg/dL (74-106); Osmolality,Calculated 305 (275-295); Potassium 3.4 mMol/L (3.4-5.1); Sodium 139 mMol/L (136-145); Total Protein 6.9 gm/dL (5.7-8.2); Vancomycin,Random 13.7 mcg/mL; eGFR 10 See Note
[2024-04-11] MEDS: PANTOPRAZOLE INJ 40 MG VIAL IVP (08:07)
[2024-04-11] MEDS: CALCIUM CARBONATE 600 MG TABLET PO ×2 (08:07→21:39)
[2024-04-11] MEDS: CLOPIDOGREL BISULFATE 75 MG TABLET PO (08:07)
[2024-04-11] MEDS: INSULIN GLARGINE (Lantus) 5 UNIT/0.05 ML (PER 5 UNITS) 20 UNIT SC ×2 (08:11→10:13)
[2024-04-11 08:32] LABS: Troponin I 1.854 ng/mL (0.0-0.045)
[2024-04-11] MEDS: CEFEPIME INJ 1 GM in SODIUM CHLORIDE 0.9% (P) 50 ML IV (09:40)
[2024-04-11] MEDS: VANCOMYCIN/NS 500 MG IVPB 100 ML 120 MG IV (10:05)
[2024-04-11] MEDS: ASPIRIN 300 MG SUPP PR (10:05)
[2024-04-11] MEDS: INSULIN LISPRO (AdmeLOG) 1 UNIT/0.01 ML UNIT SC ×4 (10:14→22:45)
--- NOTE | 2024-04-11 10:31 | PD.RESPRO ---
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 Upon arrival to the ED, stroke alert was called. CT head negative, however patient was outside of TNK window. MRI brain recommended but given that patient continues to have altered mental status and cannot follow commands in addition to requiring HFNC, will not be able to obtain. Echo obtained on 04/05, negative bubble study and EF 55 to 60%. Carotid Doppler was poor study due to lack of patient cooperation. Labs obtained in ED showed creatinine of 5.4, which is significantly elevated from baseline of 1.0. Thus, TDC was placed and patient has since received 2 dialysis sessions (04/06, 04/07), however has not had any improvement in her mental status. Throughout hospital course, patient has had 3 rapid responses. On 04/06 rapid response for fever of 103 ?F, 04/07 for episode of twitching on right side of face, and again on 04/07 for episode of apnea for few seconds after dose of lorazepam. ICU was consulted given that patient has had increased oxygen requirements and altered mental status and evaluated if patient will require closer monitoring to protect her airways. 04/08: No acute overnight events reported. She was noted to have increased oxygen requirements after coming back from repeat CT head. She was originally on HFNC at 30 L/min, 50% FiO2 and is currently on 30 L/min and now 80% FiO2. Repeat CT head showed no gross hemorrhage or mass effect but patient motion is significantly degraded image quality. Patient noted to have less spontaneous movements compared to yesterday and contacted MRI regarding possibility of obtaining imaging. However, they will not be able to accommodate patients on high flow nor on BiPAP. Underwent third session of hemodialysis today, with removal of 3 L of fluid. Blood pressure dropped to 86/48 and was given Levophed. 04/09: No acute overnight events reported. Only had 30 cc of urine output the entire shift, 2.5 cc/h. Did not require Levophed or Precedex. Underwent lumbar puncture and evening of 04/08, noted to have opening pressure at 33 cm H2O and elevated protein and glucose. Also had an EEG that showed diffuse slowing, suggestive of diffuse encephalopathy of metabolic versus degenerative versus vascular origin. No epileptic waveforms noted but given that patient's right sided facial twitching and spontaneous movements have improved, will continue with valproate per recs. Neurology also recommended starting 1 g Solu-Medrol daily. Oxygen needs decreased from HFNC to oxy mask, and again attempted to obtain MRI but were unable due to oxy mask and body habitus. NG tube placed to start feeds given the patient has been n.p.o. since admission and will increase glargine from 10 to 15 units to accommodate. 04/10: No acute overnight events reported. At 9:30 AM, rapid response called due to O2 saturation of 86% on 15 L nonrebreather. Suspect possible aspiration event and RT subsequently suctioned with increase in O2 saturation to high 80s on 15 L. Upon assessment, GCS of 3 and determined that patient unable to protect her airways and was upgraded to ICU for RSI. At around 10:30 AM, patient underwent successful RSI. A.M. labs showed glucose of 596 with anion gap of 17 and beta hydroxybutyrate of 2.1, suspect due to recently starting high-dose steroids. Glargine was originally increased to accommodate from 10 to 15 units, but patient will now be started on 20 units glargine daily. ABG obtained prior to intubation showed pH 7.1, pCO2 75, and pO2 71. Repeat after intubation showed pH 7.12, pCO2 73, and pO2 75. Subsequent ABG ordered and will follow-up. Given that patient is now intubated, revisited MRI and we will attempt to obtain again in the afternoon. Will also attempt hemodialysis later today. 04/11: No acute overnight events reported. MRI was obtained on 04/10 that showed acute infarct of anterior right brainstem (pontine level) and acute infarct of right basal ganglia. Also underwent dialysis yesterday but was only able to tolerate 2 hours and 15 minutes with removal of 700 mL due to hypotension (78/41) while on Levophed. Underwent bronchoscopy which showed few areas of submucosal bleeding noted as well as nilson blood throughout most of the airway, however serial lavages returned clear fluid. [place]et[place] in evening showed baseline of HR 89, SVI 47, CI 4.2 and HR 86, SVI 43, CI 3.8 after PLR indicating that patient is not fluid responsive. Noted to become agitated in evening (opening eyes and fighting vent) with BP spike to 192/105. Precedex was started and was on for 2 hours and BP resolved without any other intervention. UOP 15 cc entire shift. Spoke to nephrology today and no HD, will reassess tomorrow. Blood sugar better controlled, in 300s. Will increase glargine from 20 to 40 units starting today. Exam Vital Signs Temp Pulse Resp BP Pulse Ox O2 Del Method O2 Flow Rate 98.6 F 106 H 36 H 134/70 H 99 Mechanical Ventilation 13 04/11/24 08:00 04/11/24 09:45 04/11/24 07:26 04/11/24 09:45 04/11/24 09:45 04/11/24 04:15 04/10/24 20:26 FiO2 45 04/11/24 07:51 Narrative Exam General: Mechanically ventilated, not on sedation, not on pressors, not responding to questions/following commands HEENT: NC/AT, mucous membranes moist, bilateral sclera anicteric Cardiovascular: regular rate and rhythm, S1/S2 present, no murmurs appreciated Pulmonary: clear to auscultation bilaterally, no rales/rhonchi/wheezes Abdominal: Obese, soft, no guarding Musculoskeletal: no peripheral edema, dorsalis pedis pulses 3+ Skin: PIV, arterial line, TDC, acanthosis nigricans in neck Neuro: ? E (2), V (T), M (4) -> GCS 7T ? Cranial reflex, pupillary light reflex, and gag reflex tact ? Vestibulo-ocular reflex not intact ? Babinski: big toe upward deflection bilaterally Objective Labs 04/12/24 04:23 04/12/24 04:23 Labs: Laboratory Results - last 24 hr 04/10/24 04/10/24 04/10/24 09:05 10:40 11:45 WBC RBC Hgb Hct MCV MCH MCHC RDW Std Deviation Plt Count Neut % (Auto) Lymph % (Auto) [place] % (Auto) Eos % (Auto) Baso % (Auto) Neut # (Auto) Lymph # (Auto) [place] # (Auto) Eos # (Auto) Baso # (Auto) Immature Gran # (Auto) Absolute Nucleated RBC Immature Gran % Nucleated RBC % Puncture Site Cancelled Left Radial ABG pH Cancelled 7.12 L* ABG pCO2 Cancelled 73 H* ABG pO2 Cancelled 75 L ABG HCO3 Cancelled 24 ABG O2 Saturation Cancelled 90 L ABG Base Excess Cancelled -6 L Oxygen Liter Flow Cancelled FiO2 Cancelled 70 Sodium Potassium Chloride Carbon Dioxide Anion Gap BUN Creatinine Estim Creat Clear Calc eGFR BUN/Creatinine Ratio Glucose Calculated Osmolality Lactic Acid 1.5 Calcium Corrected Calcium Total Bilirubin AST ALT Alkaline Phosphatase Troponin I Total Protein Albumin Globulin Albumin/Globulin Ratio Beta-Hydroxybutyrate/Acetoacetate 2.1 H Random Vancomycin 04/10/24 04/10/24 04/10/24 12:00 14:26 14:55 WBC RBC Hgb Hct MCV MCH MCHC RDW Std Deviation Plt Count Neut % (Auto) Lymph % (Auto) [place] % (Auto) Eos % (Auto) Baso % (Auto) Neut # (Auto) Lymph # (Auto) [place] # (Auto) Eos # (Auto) Baso # (Auto) Immature Gran # (Auto) Absolute Nucleated RBC Immature Gran % Nucleated RBC % Puncture Site Arterial Line ABG pH 7.20 L ABG pCO2 58 H D ABG pO2 78 L ABG HCO3 23 ABG O2 Saturation 93 ABG Base Excess -5 L Oxygen Liter Flow FiO2 45 Sodium 136 Potassium 5.4 H Chloride 99 Carbon Dioxide 20.1 Anion Gap 17 H BUN 62 H Creatinine 6.0 H* Estim Creat Clear Calc 9.6 L eGFR 7 L* BUN/Creatinine Ratio 10 L Glucose 679 H* D Calculated Osmolality 321 H Lactic Acid Calcium 8.3 Corrected Calcium 8.8 Total Bilirubin < 0.2 L AST 45 H ALT 24 Alkaline Phosphatase 113 Troponin I 0.641 H* Total Protein 6.6 Albumin 3.4 D Globulin 3.2 Albumin/Globulin Ratio 1.1 L Beta-Hydroxybutyrate/Acetoacetate 1.7 H Random Vancomycin 04/10/24 04/10/24 04/10/24 15:21 15:31 20:32 WBC RBC Hgb Hct MCV MCH MCHC RDW Std Deviation Plt Count Neut % (Auto) Lymph % (Auto) [place] % (Auto) Eos % (Auto) Baso % (Auto) Neut # (Auto) Lymph # (Auto) [place] # (Auto) Eos # (Auto) Baso # (Auto) Immature Gran # (Auto) Absolute Nucleated RBC Immature Gran % Nucleated RBC % Puncture Site Arterial Line ABG pH 7.25 L ABG pCO2 52 H ABG pO2 90 ABG HCO3 23 ABG O2 Saturation 95 ABG Base Excess -5 L Oxygen Liter Flow FiO2 45 Sodium 138 138 Potassium 4.3 D 3.2 L D Chloride 100 98 Carbon Dioxide 21.6 22.4 Anion Gap 16 18 H BUN 63 H 36 H Creatinine 6.1 H* 3.8 H D Estim Creat Clear Calc 9.5 L 15.2 L eGFR 7 L* 13 L* BUN/Creatinine Ratio 10 L 9 L Glucose 670 H* 359 H D Calculated Osmolality 325 H 297 H Lactic Acid Calcium 8.5 8.5 Corrected Calcium 8.8 8.7 Total Bilirubin 0.2 L 0.3 AST 33 34 ALT 18 23 Alkaline Phosphatase 102 116 Troponin I 0.983 H* D Total Protein 7.0 7.8 Albumin 3.6 3.8 Globulin 3.4 4.0 H Albumin/Globulin Ratio 1.1 L 1.0 L Beta-Hydroxybutyrate/Acetoacetate Random Vancomycin 04/10/24 04/11/24 04/11/24 23:00 01:28 04:15 WBC 9.9 RBC 2.89 L Hgb 8.1 L Hct 25.9 L MCV 90 MCH 28.0 MCHC 31.3 RDW Std Deviation 50.8 H Plt Count 298 Neut % (Auto) 86 H Lymph % (Auto) 4 L [place] % (Auto) 7 Eos % (Auto) 0 Baso % (Auto) 0 Neut # (Auto) 8.5 H Lymph # (Auto) 0.4 L [place] # (Auto) 0.7 Eos # (Auto) 0.0 Baso # (Auto) 0.0 Immature Gran # (Auto) 0.20 H Absolute Nucleated RBC 0.04 H Immature Gran % 2 H Nucleated RBC % 0 Puncture Site ABG pH ABG pCO2 ABG pO2 ABG HCO3 ABG O2 Saturation ABG Base Excess Oxygen Liter Flow FiO2 Sodium 139 Potassium 3.5 3.4 Chloride 98 Carbon Dioxide 23.0 Anion Gap 18 H BUN 51 H Creatinine 4.7 H* D Estim Creat Clear Calc 12.0 L eGFR 10 L* BUN/Creatinine Ratio 11 L Glucose 350 H Calculated Osmolality 305 H Lactic Acid Calcium 8.7 Corrected Calcium 9.0 Total Bilirubin 0.3 AST 28 ALT 18 Alkaline Phosphatase 98 Troponin I 1.814 H* D Total Protein 6.9 Albumin 3.6 Globulin 3.3 Albumin/Globulin Ratio 1.1 L Beta-Hydroxybutyrate/Acetoacetate Random Vancomycin 13.7 04/11/24 04/11/24 05:29 07:45 WBC RBC Hgb Hct MCV MCH MCHC RDW Std Deviation Plt Count Neut % (Auto) Lymph % (Auto) [place] % (Auto) Eos % (Auto) Baso % (Auto) Neut # (Auto) Lymph # (Auto) [place] # (Auto) Eos # (Auto) Baso # (Auto) Immature Gran # (Auto) Absolute Nucleated RBC Immature Gran % Nucleated RBC % Puncture Site Arterial Line ABG pH 7.40 D ABG pCO2 40 D ABG pO2 93 ABG HCO3 25 ABG O2 Saturation 98 ABG Base Excess 0 Oxygen Liter Flow FiO2 21 Sodium Potassium Chloride Carbon Dioxide Anion Gap BUN Creatinine Estim Creat Clear Calc eGFR BUN/Creatinine Ratio Glucose Calculated Osmolality Lactic Acid Calcium Corrected Calcium Total Bilirubin AST ALT Alkaline Phosphatase Troponin I 1.854 H* Total Protein Albumin Globulin Albumin/Globulin Ratio Beta-Hydroxybutyrate/Acetoacetate Random Vancomycin ABG Interpretation ABG results: 04/05/24 04/06/24 04/06/24 13:11 05:17 13:37 ABG pH 7.23 L 7.23 L ABG pCO2 39 31 L ABG pO2 54 L* 70 L ABG HCO3 16 L 13 L ABG O2 Saturation 86 L 92 ABG Base Excess -11 L -13 L VBG pH 7.23 L VBG pCO2 34 L VBG pO2 35 VBG Base Excess -13 L 04/06/24 04/07/24 04/08/24 16:56 12:14 14:46 ABG pH 7.42 D 7.39 7.36 ABG pCO2 35 40 44 ABG pO2 69 L 79 L 40 L* D ABG HCO3 23 24 25 ABG O2 Saturation 94 94 71 L ABG Base Excess -2 -1 -1 VBG pH VBG pCO2 VBG pO2 VBG Base Excess 04/08/24 04/08/24 04/10/24 16:20 17:19 09:05 ABG pH 7.34 L 7.35 Cancelled ABG pCO2 46 45 Cancelled ABG pO2 36 L* 113 H D Cancelled ABG HCO3 25 25 Cancelled ABG O2 Saturation 63 L 97 Cancelled ABG Base Excess -1 -1 Cancelled VBG pH VBG pCO2 VBG pO2 VBG Base Excess 04/10/24 04/10/24 04/10/24 09:41 11:45 14:26 ABG pH 7.10 L* D 7.12 L* 7.20 L ABG pCO2 75 H* D 73 H* 58 H D ABG pO2 71 L D 75 L 78 L ABG HCO3 23 24 23 ABG O2 Saturation 89 L 90 L 93 ABG Base Excess -7 L -6 L -5 L VBG pH VBG pCO2 VBG pO2 VBG Base Excess 04/10/24 04/11/24 15:21 05:29 ABG pH 7.25 L 7.40 D ABG pCO2 52 H 40 D ABG pO2 90 93 ABG HCO3 23 25 ABG O2 Saturation 95 98 ABG Base Excess -5 L 0 VBG pH VBG pCO2 VBG pO2 VBG Base Excess Quality Measures Quality Measures VTE prophylaxis Advance care planning discussed with:: child Assessment & Plan Assessment Current Active Medications: Generic Name Dose Route Start Last Admin Trade Name Freq PRN Reason Stop Dose Admin Acetaminophen 650 mg 04/05/24 23:06 Acetaminophen 325 Mg Tablet PO 05/05/24 23:05 Q6H PRN PAIN SCALE 1-3 (mild Acetaminophen 650 mg 04/05/24 23:06 Acetaminophen 325 Mg Tablet PO 05/05/24 23:05 Q6H PRN Fever >100 Albuterol/Ipratropium 3 ml 04/10/24 11:45 04/11/24 07:25 Albuterol/Ipratropium (Duoneb) Rt Princess 3 Ml Nebu INH 05/10/24 11:44 3 ml Q4HRRT DELMY Administration Aspirin 300 mg 04/06/24 12:15 04/11/24 10:05 Aspirin 300 Mg Supp [place] 05/06/24 12:14 300 mg QDAY DELMY Administration Atorvastatin Calcium 80 mg 04/06/24 21:00 04/10/24 20:02 Atorvastatin Calcium 20 Mg Tablet PO 05/06/24 20:59 80 mg HS DELMY Administration Calcium Carbonate 600 mg 04/06/24 14:45 04/11/24 08:07 Calcium Carbonate 600 Mg Tablet PO 05/06/24 14:44 600 mg BID DELMY Administration Clopidogrel Bisulfate 75 mg 04/10/24 19:15 04/11/24 08:07 Clopidogrel Bisulfate 75 Mg Tablet PO 05/10/24 19:14 75 mg QDAY DELMY Administration Dextrose 25 ml 04/07/24 10:52 Dextrose 50%-Water Inj 50 Ml Syringe IV 05/07/24 10:51 Q15MIN PRN BG 50-70 responsive npo pt Dextrose 50 ml 04/07/24 10:52 Dextrose 50%-Water Inj 50 Ml Syringe IV 05/07/24 10:51 Q15MIN PRN BG <50 OR BG <70 & pt unresponsive Glucagon 1 mg 04/07/24 10:52 Glucagon Inj 1 Mg Vial IM Q15MIN PRN BG <70, and no IV access Heparin Sodium (Porcine) 3,300 unit 04/06/24 15:03 04/10/24 20:13 Heparin Sod Inj 1000 Unit/Ml Vial 10 Ml INDWELLCAT 04/20/24 15:02 3,300 unit PRN PRN Administration DIALYSIS Heparin Sodium (Porcine) 5,000 unit 04/09/24 08:00 04/11/24 05:08 Heparin Sod Inj 5000 Unit/Ml Vial SC 04/23/24 07:59 5,000 unit Q8HR DELMY Administration Albumin Human 25 gm in 100 mls @ 100 mls/min 04/06/24 08:27 04/08/24 10:03 Albuminar-25 Ivpb IV 100 mls/min PRN PRN Administration DIALYSIS Dexmedetomidine/Sodium Chloride 200 mcg in 50 mls @ 5.31 mls/hr 04/08/24 09:17 04/11/24 05:00 Precedex Ivpb IV 05/08/24 09:16 0 mcg/kg/hr .Q9H25M PRN 0 mls/hr Per PROTOCOL Titration Protocol 0.2 MCG/KG/HR Norepinephrine/Dextrose 8 mg in 250 mls @ 9.956 mls/hr 04/08/24 09:53 04/11/24 02:35 Levophed In D5w 8mg/250ml IV 05/08/24 09:52 0 mcg/kg/min .Q24H PRN 0 mls/hr PER PROTOCOL Titration Protocol 0.05 MCG/KG/MIN Methylprednisolone Sodium 104 mls @ 104 mls/hr 04/09/24 12:00 04/10/24 13:27 Succinate 250 mg/ Sodium IV 04/16/24 11:59 Not Given Chloride Q6HR [facility] Fentanyl Citrate 2,500 mcg in 250 mls @ 2.5 mls/hr 04/10/24 09:47 Sublimaze Inj 2,500 Mcg/250 Ml Bag IV 04/15/24 09:46 .Q24H PRN PER PROTOCOL Protocol 25 MCG/HR Propofol 1,000 mg in 100 mls @ 2.955 mls/hr 04/10/24 09:50 Diprivan Ivpb IV 05/10/24 09:49 .Q24H PRN PER PROTOCOL Protocol 5 MCG/KG/MIN Ampicillin Sodium 2,000 mg/ 100 mls @ 200 mls/hr 04/10/24 16:00 04/10/24 21:49 Sodium Chloride IV 04/17/24 15:59 Infused [id number] [facility] Infusion Valproic Acid 750 mg/ Sodium 57.5 mls @ 55 mls/hr 04/11/24 14:00 Chloride IV 05/08/24 21:59 Q8HR [facility] Cefepime HCl 1 gm/ Sodium 50 mls @ 100 mls/hr 04/13/24 16:00 Chloride IV 04/17/24 15:59 [id number] [facility] Protocol Vancomycin/Sodium Chloride 100 mls @ 120 mls/hr 04/11/24 10:00 04/11/24 10:05 Vancomycin/Ns 500 Mg Ivpb IV 04/11/24 10:49 120 mls/hr X1 ONE Administration Insulin Glargine 40 unit 04/12/24 09:00 Insulin Glargine (Lantus) 5 Unit/0.05 Ml (Per 5 Units) SC 05/12/24 08:59 QAM [facility] Insulin Human Lispro 0 unit 04/10/24 14:00 04/11/24 10:14 Insulin Lispro (Admelog) 1 Unit/0.01 Ml Unit SC 05/10/24 13:59 6 unit Q4HR [facility] Administration Protocol Labetalol HCl 10 mg 04/05/24 23:55 Labetalol Inj 5 Mg/Ml Vial 20 Ml IVP 05/05/24 23:54 X1 PRN BP >220/110 Lidocaine HCl 9 ml 04/06/24 11:00 Lidocaine Inj Pf 1% 5 Ml Vial INFL X1 PRN LOCAL ANESTHESIA Protocol Ondansetron HCl 4 mg 04/05/24 23:06 Ondansetron Inj 2 Mg/Ml Inj 2 Ml IV 05/05/24 23:05 Q6H PRN NAUSEA OR VOMITING Protocol Pantoprazole Sodium 40 mg 04/06/24 09:00 04/11/24 08:07 Pantoprazole Inj 40 Mg Vial IVP 05/06/24 08:59 40 mg QDAY DELMY Administration Pharmacy Consult 1 each 04/09/24 08:54 Pharmacy Renal Dose Adjustment 1 Ea XX 05/08/24 08:59 QDAY PRN protocol Pharmacy Consult 1 each 04/11/24 09:00 Vancomycin Pharmacy To Dose 1 Each Each IV 05/11/24 08:59 QDAY PRN PROTOCOL Plan Sofiya Vogt is a 64-year-old female with a past medical history of 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 She was upgraded to ICU on 04/08 and then downgraded on 04/10. However, rapid response called on 04/10 for desaturation (see event note for details) and upgraded on 04/10 for airway protection requiring RSI. 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 CT head negative, including repeat although severely limited due to patient movement. MRI/MRA brain: 12 mm acute infarct of the anterior right brainstem (pontine level), 14 mm acute infarct of right basal ganglia. Status post EEG on 04/08: diffuse slowing, suggestive of encephalopathy of metabolic vs degenerative vs vascular origin without epileptic waveforms Status post lumbar puncture on 04/08: glucose 148 H, protein 54 H, WBC 4 wnl, GPC on cultures ? Neurology consulted, appreciate recommendations ? IV methylprednisolone 250 mg q6hr x5 days -> HOLDING secondary to significantly elevated blood sugars (see endo below) ? Valproate IV every 8 hours ? Follow-up autoimmune encephalitis panel, West Nile, HSV, and Cryptococcal studies ? Follow-up ZAINAB, ANCA, C3, C4 ? Follow-up carotid duplex #Ischemic stroke, right brainstem (pontine level), prior basal ganglia #History of stroke with residual left-sided deficits ? Aspirin 300 mg [place] daily ? Clopidogrel 75 mg via NG daily ? Atorvastatin 80 mg via NG daily #? Meningitis vs encphalitis Ceftriaxone and azithromycin (04/05-04/07) Doxycycline (04/07-04/10) Cefepime (04/07-04-10) Ampicillin and vancomycin (04/10-04/11) Unlikely meningitis vs infectious encephalitis and will discontinue antibiotics per neurology recommendations ? CSF culture: No growth Cardiovascular #ACS, NSTEMI #Elevated troponins Elevated on admission, but decreased from 1.3 to 1.2 and were no longer trended. ST depressions seen on telemetry on 04/10 and repeat troponin of 0.64 that increased to 0.98 and plateaued at 1.8. Repeat EKG showed ST depressions in V2-V6 (most prominent in V4-6). ? Cardiology consulted, recommended aspirin, statin, and beta-vero if neurology is in agreement; no heparin drip ? Troponins plateaued at 1.8 Pulmonary #Acute hypoxic respiratory failure, secondary to ? aspiration pneumonitis After rapid response on 04/10, ABG obtained prior to RSI and showed pH 7.1, pCO2 75, pO2 71. Repeat ABG after RSI and mechanical ventilation showed pH 7.2, pCO2 58, and pO2 78. Next morning ABG showed pH 7.4, pCO2 40, pO2 93 which are much improved compared to prior. During intubation, foreign material (? tube feeds) were seen and could be possible etiology of desaturation. ? Mechanically ventilated: Tidal volume 350, RR 36, PEEP 14, FiO2 45% #[place], CAP vs aspiration pneumonitis CT chest on admission showed bilateral pneumonia. CXR 04/09 again showed bilateral pneumonia but improved compared to CXR on 04/07 04/10, RR due to desaturation with suspected aspiration event causing likely aspiration pneumonitis. Since already received 7 days antibiotics, current antibiotics will be for encephalitis versus meningitis. ? Follow-up bronchial lavage culture 04/10 ? Follow-up repeat blood culture 04/10 ? Follow-up sputum culture 04/10 ? Follow-up blood culture 04/26: NGTD ? COVID, RSV, and flu negative ? Cocci IgM and IgG negative ? MRSA nares: negative Gastrointestinal #Transaminitis, stable Has received multiple antibiotics #GI prophylaxis ? Pantoprazole 40 mg IV daily #NG tube placed, 04/09 KUB showed Dobhoff NG tube in distal stomach/satisfactory position Dobhoff removed during MRI on 04/09 and replaced with another NG tube ? Change House Attendant referral to begin NG tube feedings -> HOLDING tube feeds ? NG tube in place, suctioning off Renal #Acute kidney injury, improving on HD Status post placement of TDC. Hemodialysis sessions 04/06, 04/07, 04/08, 04/09. ? HD per nephrology recommendations ? Renally dose medications ? Avoid nephrotoxic agents #History of staghorn calculi #Nephrolithiasis, 10 mm and 14 mm lower pole left renal calculi without hydronephrosis seen on CT A/P ? Urology consulted ? Not surgical candidate at this time ? No indication for percutaneous nephrostomy tube or ureteral stent ? Possible to have PCNL after patient is fully recovered #Hypercalcemia, resolved #Hyperphosphatemia ? Continue hemodialysis Endocine #Type 2 diabetes mellitus A1c 7.6%. Glucose has increased significantly in setting of IV steroids, but have been held on 04/10. BS 595 at 1200 -> 367 1900 -> 299-320 til now. 40 units glargine in 24 hours, 62 units lispro during day (12 units SSI), 15 units regular insulin. 41 units lispro overnight. Beta hydroxybutyrate 2.1 -> 1.7, AG 18. ? SSI (scale 3) ? 40 units glargine every morning Heme #Chronic, normocytic anemia Slowly downtrending but stable. Has not had bloody bowel movements or gross hematuria. ? Continue to monitor Infectious disease #? Infectious encephalitis vs meningitis ? See neurological above #Community acquired pneumonia ? See respiratory above Hospital management: Disposition: intubated and mechanically ventilated Fluids: none Pressors: Levophed PRN Sedatives: Precedex PRN Diet: NPO, NG tube with suctioning off DVT prophylaxis: heparin SC q8hr GI prophylaxis: pantoprazole 40 mg IV Lines: peripheral, TDC, arterial line CODE STATUS: full code ----- Plan discussed with attending physician Dr. Bardales. Ion Andino MD PGY-1 Internal Medicine Attending Provider Attestation/Addendum pt seen and examined with resident. agree with above. In brief this is a 64yo F with acute hypoxic resp failure and AMS. No significant change in her overall status. remains with minimal UOP and on HD. decrease in FiO2 needs, no change in physical exam. All cx are NTD and therefore having completed 7 days of abx will stop abx. d/w neuro regarding the GPC on gram stain but no growth, CSF shows 4 WBC and no evidence of meningitis-> they are ok with stopping abx. d/w nephro and not for HD today. pt is not requiring vasopressor or sedation. case d/w ICU team labs, imaging, records reviewed ~36ccmin required for eval, exam, review, intervention, discussion and formulation of POC for this critically ill pt with acute resp failure at high risk for further and ongoing decompensation
--- NOTE | 2024-04-11 11:09 | XR_ITS ---
Examination: Carotid arterial duplex scan, ultrasound. Date and time of exam: April 11, 2024 1339 hrs. Indications: CVA on brain MRI April 10, 2024 Technique: Multiple sonographic images have been obtained of the carotid arteries and vertebral arteries, B-mode/grayscale imaging and Doppler spectral analysis and color flow Peak systolic and diastolic velocities have been recorded. Systolic diastolic ratios have been calculated. Findings: Right peak systolic velocities: Distal internal carotid artery peak systolic velocity is 1.8 M/sec Proximal internal carotid artery peak systolic velocity is 1.1 M/sec Carotid bifurcation peak systolic velocity is 0.8 M/sec External carotid artery peak systolic velocity is 1.6 M/sec Vertebral artery flow is antegrade. Left peak systolic velocities: Distal internal carotid artery peak systolic velocity is 1.2 M/sec Proximal internal carotid artery peak systolic velocity is 1.3 M/sec Carotid bifurcation peak systolic velocity is 0.9 M/sec External carotid artery peak systolic velocity is 2.0 M/sec Vertebral artery flow is antegrade Doppler waveform analysis demonstrates spectral broadening on the right Impression: Right internal carotid artery demonstrates 30-50% stenosis. Left internal carotid artery demonstrates 10-20% stenosis.
--- NOTE | 2024-04-11 17:00 | ESPR_ITS ---
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 Stroke alert was called, and underwent stroke workup. tPA not given due to out of window. On further interviewing, she reported that she has been taking some penicillin that was brought from [place] of long time ago. She also took Motrin x 2 in last 2 days. She admitted having fever, denied any chills, lightheadedness, chest pain, and any flank pain. Her vitals are fairly stable, hemoglobin 9.1, ABG significant for pH 7.23, pCO2 39, pO2 70. Chemistry panel revealed sodium 133, mild hyperkalemia, bicarb 15.1. BUN 66, creatinine 5.9, EGFR 7. Baseline creatinine is 1.6 with EGFR 56. Triglyceride 493, cholesterol 191, HDL 30 with normal TSH and T4. Hepatitis panel negative. CT head negative for midline shift, acute hemorrhage or mass effect. Pending carotid US, and brain MRI. CXR with mild congestion and superimposed pneumonia. CT abdomen pelvis revealed significant hepatomegaly, moderate bilateral renal parenchymal scarring, 10 mm and 14 mm renal calculi on the left, cystitis pattern, no hydronephrosis or bowel obstruction. PMH: As mentioned above Social history: Denies alcohol, smoking or any illicit drug use Allergies: No known allergies 04/07/2024: The patient was interviewed and examined at the bedside. She was saturating 93% on BiPAP, with FiO2 40% and O2 flow 30 L. Chemistry panel revealed BUN 52, creatinine 4.9, EGFR 9, blood sugar 279, calcium 8.1 and phosphorus 6.0. The patient will get second session of hemodialysis this morning. Urine random creatinine 113, protein 598, sodium 42, potassium 33, chloride 27, urea nitrogen 302. Renal ultrasound significant for moderate bilateral renal parenchymal eschar formation, bilateral renal cortical thinning with no hydronephrosis. 04/08/2024: The patient was examined at the bedside this morning. She reported having difficulty breathing. She was upgraded to ICU. She was saturating 92% on BiPAP. Other vitals were fairly stable. Physical examination was significant for distant breath sounds, and bibasilar crackles. Labs were significant for hemoglobin trending down to 8.1 likely dilutional, BUN 41 and creatinine 4.4, phosphorus 5.8. Ordered ZAINAB screen, ANCA, antiproteinase 3, antimyeloperoxidase and complement level. 04/09/2024: The patient was at the bedside this morning again. She was difficult to arouse and was reacting to painful stimulus. Her vitals were stable saturating 97% on high flow NC with FiO2 80%. The patient underwent hemodialysis yesterday with removal of 3 L fluid and was hypotensive after that. BUN And creatinine improving to 26 and 3.7 respectively. Phosphorus 5.6 less than 10. We will hold off today and proceed with morning. 04/10/24: The patient was agitated overnight and was given 2 mg of IV lorazepam. This morning, she was responding only to painful stimuli, lying on her bed. Her fingerstick blood sugar this morning was 483, hemoglobin 8.9, Chemistry panel significant for potassium 5.0, BUN 53, creatinine 5.6, and blood sugar 596. The patient is planned to undergo hemodialysis this morning. 04/11/2024: The patient was examined at the ICU bedside this morning. She was intubated. She was, saturating 100% on mechanical ventilation, on FiO2 45%, with heart rate 112, and respiratory rate in 30s. CBC was significant for WBC 9.9, hemoglobin 8.1 ABG WNL, sodium 139, potassium 3.4, anion gap 18, BUN 51 and creatinine 4.7 with blood glucose 350, troponin trended up to 1.854. We will hold off on dialysis for today, and proceed with dialysis tomorrow morning. Exam Vital Signs Temp Pulse Resp BP Pulse Ox O2 Del Method O2 Flow Rate 98.0 F 112 H 39 H 141/62 H 100 Mechanical Ventilation 13 04/11/24 12:00 04/11/24 16:15 04/11/24 14:53 04/11/24 16:15 04/11/24 16:15 04/11/24 04:15 04/10/24 20:26 FiO2 45 04/11/24 16:00 Narrative Exam General: No acute distress, alert and oriented x 0,responding only to deep stimuli. HEENT: Moist mucous membranes, oropharynx clear, sedated and intubated Neck: Supple, No masses, No JVD CVS: S1S2 Regular rate and rhythm, No murmurs, rubs or gallops Lungs: Distant breath sounds, mild bibasilar crackles, no wheeze no rhonchi Abd: Soft, NT/ND, +BS, no organomegaly Ext: 1+ bilateral lower limb edema, warm and well perfused, peripheral arteries barely palpable Skin: No rash Psych: Unobtainable Objective Labs 04/12/24 04:23 04/12/24 04:23 Labs: Laboratory Results - last 24 hr 04/10/24 04/10/24 04/10/24 15:31 20:32 23:00 WBC RBC Hgb Hct MCV MCH MCHC RDW Std Deviation Plt Count Neut % (Auto) Lymph % (Auto) [place] % (Auto) Eos % (Auto) Baso % (Auto) Neut # (Auto) Lymph # (Auto) [place] # (Auto) Eos # (Auto) Baso # (Auto) Immature Gran # (Auto) Absolute Nucleated RBC Immature Gran % Nucleated RBC % Puncture Site ABG pH ABG pCO2 ABG pO2 ABG HCO3 ABG O2 Saturation ABG Base Excess FiO2 Sodium 138 138 Potassium 4.3 D 3.2 L D Chloride 100 98 Carbon Dioxide 21.6 22.4 Anion Gap 16 18 H BUN 63 H 36 H Creatinine 6.1 H* 3.8 H D Estim Creat Clear Calc 9.5 L 15.2 L eGFR 7 L* 13 L* BUN/Creatinine Ratio 10 L 9 L Glucose 670 H* 359 H D Calculated Osmolality 325 H 297 H Calcium 8.5 8.5 Corrected Calcium 8.8 8.7 Total Bilirubin 0.2 L 0.3 AST 33 34 ALT 18 23 Alkaline Phosphatase 102 116 Troponin I 0.983 H* D 1.814 H* D Total Protein 7.0 7.8 Albumin 3.6 3.8 Globulin 3.4 4.0 H Albumin/Globulin Ratio 1.1 L 1.0 L Random Vancomycin 04/11/24 04/11/24 04/11/24 01:28 04:15 05:29 WBC 9.9 RBC 2.89 L Hgb 8.1 L Hct 25.9 L MCV 90 MCH 28.0 MCHC 31.3 RDW Std Deviation 50.8 H Plt Count 298 Neut % (Auto) 86 H Lymph % (Auto) 4 L [place] % (Auto) 7 Eos % (Auto) 0 Baso % (Auto) 0 Neut # (Auto) 8.5 H Lymph # (Auto) 0.4 L [place] # (Auto) 0.7 Eos # (Auto) 0.0 Baso # (Auto) 0.0 Immature Gran # (Auto) 0.20 H Absolute Nucleated RBC 0.04 H Immature Gran % 2 H Nucleated RBC % 0 Puncture Site Arterial Line ABG pH 7.40 D ABG pCO2 40 D ABG pO2 93 ABG HCO3 25 ABG O2 Saturation 98 ABG Base Excess 0 FiO2 21 Sodium 139 Potassium 3.5 3.4 Chloride 98 Carbon Dioxide 23.0 Anion Gap 18 H BUN 51 H Creatinine 4.7 H* D Estim Creat Clear Calc 12.0 L eGFR 10 L* BUN/Creatinine Ratio 11 L Glucose 350 H Calculated Osmolality 305 H Calcium 8.7 Corrected Calcium 9.0 Total Bilirubin 0.3 AST 28 ALT 18 Alkaline Phosphatase 98 Troponin I Total Protein 6.9 Albumin 3.6 Globulin 3.3 Albumin/Globulin Ratio 1.1 L Random Vancomycin 13.7 04/11/24 07:45 WBC RBC Hgb Hct MCV MCH MCHC RDW Std Deviation Plt Count Neut % (Auto) Lymph % (Auto) [place] % (Auto) Eos % (Auto) Baso % (Auto) Neut # (Auto) Lymph # (Auto) [place] # (Auto) Eos # (Auto) Baso # (Auto) Immature Gran # (Auto) Absolute Nucleated RBC Immature Gran % Nucleated RBC % Puncture Site ABG pH ABG pCO2 ABG pO2 ABG HCO3 ABG O2 Saturation ABG Base Excess FiO2 Sodium Potassium Chloride Carbon Dioxide Anion Gap BUN Creatinine Estim Creat Clear Calc eGFR BUN/Creatinine Ratio Glucose Calculated Osmolality Calcium Corrected Calcium Total Bilirubin AST ALT Alkaline Phosphatase Troponin I 1.854 H* Total Protein Albumin Globulin Albumin/Globulin Ratio Random Vancomycin ABG Interpretation ABG results: 04/05/24 04/06/24 04/06/24 13:11 05:17 13:37 ABG pH 7.23 L 7.23 L ABG pCO2 39 31 L ABG pO2 54 L* 70 L ABG HCO3 16 L 13 L ABG O2 Saturation 86 L 92 ABG Base Excess -11 L -13 L VBG pH 7.23 L VBG pCO2 34 L VBG pO2 35 VBG Base Excess -13 L 04/06/24 04/07/2404/08/25 16:56 12:14 14:46 ABG pH 7.42 D 7.39 7.36 ABG pCO2 35 40 44 ABG pO2 69 L 79 L 40 L* D ABG HCO3 23 24 25 ABG O2 Saturation 94 94 71 L ABG Base Excess -2 -1 -1 VBG pH VBG pCO2 VBG pO2 VBG Base Excess 04/08/24 04/08/24 04/10/24 16:20 17:19 09:05 ABG pH 7.34 L 7.35 Cancelled ABG pCO2 46 45 Cancelled ABG pO2 36 L* 113 H D Cancelled ABG HCO3 25 25 Cancelled ABG O2 Saturation 63 L 97 Cancelled ABG Base Excess -1 -1 Cancelled VBG pH VBG pCO2 VBG pO2 VBG Base Excess 04/10/24 04/10/24 04/10/24 09:41 11:45 14:26 ABG pH 7.10 L* D 7.12 L* 7.20 L ABG pCO2 75 H* D 73 H* 58 H D ABG pO2 71 L D 75 L 78 L ABG HCO3 23 24 23 ABG O2 Saturation 89 L 90 L 93 ABG Base Excess -7 L -6 L -5 L VBG pH VBG pCO2 VBG pO2 VBG Base Excess 04/10/24 04/11/24 15:21 05:29 ABG pH 7.25 L 7.40 D ABG pCO2 52 H 40 D ABG pO2 90 93 ABG HCO3 23 25 ABG O2 Saturation 95 98 ABG Base Excess -5 L 0 VBG pH VBG pCO2 VBG pO2 VBG Base Excess Quality Measures Quality Measures VTE prophylaxis Advance care planning discussed with:: child Assessment & Plan Assessment Current Active Medications: Generic Name Dose Route Start Last Admin Trade Name Freq PRN Reason Stop Dose Admin Acetaminophen 650 mg 04/05/24 23:06 Acetaminophen 325 Mg Tablet PO 05/05/24 23:05 Q6H PRN PAIN SCALE 1-3 (mild Acetaminophen 650 mg 04/05/24 23:06 Acetaminophen 325 Mg Tablet PO 05/05/24 23:05 Q6H PRN Fever >100 Albuterol/Ipratropium 3 ml 04/10/24 11:45 04/11/24 14:43 Albuterol/Ipratropium (Duoneb) Rt Princess 3 Ml Nebu INH 05/10/24 11:44 3 ml Q4HRRT DELMY Administration Aspirin 300 mg 04/06/24 12:15 04/11/24 10:05 Aspirin 300 Mg Supp MS 05/06/24 12:14 300 mg QDAY DELMY Administration Atorvastatin Calcium 80 mg 04/11/24 21:00 Atorvastatin Calcium 20 Mg Tablet NG 05/11/24 20:59 HS DELMY Calcium Carbonate 600 mg 04/06/24 14:45 04/11/24 08:07 Calcium Carbonate 600 Mg Tablet PO 05/06/24 14:44 600 mg BID DELMY Administration Clopidogrel Bisulfate 75 mg 04/12/24 09:00 Clopidogrel Bisulfate 75 Mg Tablet NG 05/12/24 08:59 QDAY DELMY Dextrose 25 ml 04/07/24 10:52 Dextrose 50%-Water Inj 50 Ml Syringe IV 05/07/24 10:51 Q15MIN PRN BG 50-70 responsive npo pt Dextrose 50 ml 04/07/24 10:52 Dextrose 50%-Water Inj 50 Ml Syringe IV 05/07/24 10:51 Q15MIN PRN BG <50 OR BG <70 & pt unresponsive Glucagon 1 mg 04/07/24 10:52 Glucagon Inj 1 Mg Vial IM Q15MIN PRN BG <70, and no IV access Heparin Sodium (Porcine) 3,300 unit 04/06/24 15:03 04/10/24 20:13 Heparin Sod Inj 1000 Unit/Ml Vial 10 Ml INDWELLCAT 04/20/24 15:02 3,300 unit PRN PRN Administration DIALYSIS Heparin Sodium (Porcine) 5,000 unit 04/09/24 08:00 04/11/24 14:49 Heparin Sod Inj 5000 Unit/Ml Vial SC 04/23/24 07:59 5,000 unit Q8HR DELMY Administration Albumin Human 25 gm in 100 mls @ 100 mls/min 04/06/24 08:27 04/08/24 10:03 Albuminar-25 Ivpb IV 100 mls/min PRN PRN Administration DIALYSIS Dexmedetomidine/Sodium Chloride 200 mcg in 50 mls @ 5.31 mls/hr 04/08/24 09:17 04/11/24 05:00 Precedex Ivpb IV 05/08/24 09:16 0 mcg/kg/hr .Q9H25M PRN 0 mls/hr Per PROTOCOL Titration Protocol 0.2 MCG/KG/HR Norepinephrine/Dextrose 8 mg in 250 mls @ 9.956 mls/hr 04/08/24 09:53 04/11/24 02:35 Levophed In D5w 8mg/250ml IV 05/08/24 09:52 0 mcg/kg/min .Q24H PRN 0 mls/hr PER PROTOCOL Titration Protocol 0.05 MCG/KG/MIN Methylprednisolone Sodium 104 mls @ 104 mls/hr 04/09/24 12:00 04/10/24 13:27 Succinate 250 mg/ Sodium IV 04/16/24 11:59 Not Given Chloride Q6HR DELMY Fentanyl Citrate 2,500 mcg in 250 mls @ 2.5 mls/hr 04/10/24 09:47 Sublimaze Inj 2,500 Mcg/250 Ml Bag IV 04/15/24 09:46 .Q24H PRN PER PROTOCOL Protocol 25 MCG/HR Propofol 1,000 mg in 100 mls @ 2.955 mls/hr 04/10/24 09:50 Diprivan Ivpb IV 05/10/24 09:49 .Q24H PRN PER PROTOCOL Protocol 5 MCG/KG/MIN Valproic Acid 750 mg/ Sodium 57.5 mls @ 55 mls/hr 04/11/24 14:00 04/11/24 14:49 Chloride IV 05/08/24 21:59 55 mls/hr Q8HR DELMY Administration Insulin Glargine 40 unit 04/12/24 09:00 Insulin Glargine (Lantus) 5 Unit/0.05 Ml (Per 5 Units) SC 05/12/24 08:59 QAM [facility] Insulin Human Lispro 0 unit 04/10/24 14:00 04/11/24 14:55 Insulin Lispro (Admelog) 1 Unit/0.01 Ml Unit SC 05/10/24 13:59 6 unit Q4HR DELMY Administration Protocol Labetalol HCl 10 mg 04/05/24 23:55 Labetalol Inj 5 Mg/Ml Vial 20 Ml IVP 05/05/24 23:54 X1 PRN BP >220/110 Lidocaine HCl 9 ml 04/06/24 11:00 Lidocaine Inj Pf 1% 5 Ml Vial INFL X1 PRN LOCAL ANESTHESIA Protocol Ondansetron HCl 4 mg 04/05/24 23:06 Ondansetron Inj 2 Mg/Ml Inj 2 Ml IV 05/05/24 23:05 Q6H PRN NAUSEA OR VOMITING Protocol Pantoprazole Sodium 40 mg 04/06/24 09:00 04/11/24 08:07 Pantoprazole Inj 40 Mg Vial IVP 05/06/24 08:59 40 mg QDAY DELMY Administration Pharmacy Consult 1 each 04/09/24 08:54 Pharmacy Renal Dose Adjustment 1 Ea XX 05/08/24 08:59 QDAY PRN protocol Plan The patient is a 64-year-old female with significant past medical history of 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 Stroke alert was called, and underwent stroke workup. tPA not given due to out of window. On further interviewing, she reported that she has been taking some penicillin that was brought from [place] of long time ago. She also took Motrin x 2 in last 2 days. She admitted having fever, denied any chills, lightheadedness, chest pain, and any flank pain. Nephrology consultation was done for further management of ANA LAURA in CKD stage IIIa. 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 On admission, creatinine 5.9 and GFR 7. On admission ABG significant for acidemia with pH 7.23, pCO2 39, pO2 70. Chemistry panel revealed sodium 133, mild hyperkalemia, bicarb 15.1. ABG significant for pH 7.42 revealing improvement in acidemia, BUN 52, creatinine 4.9, EGFR 9, calcium 8.1, phosphorus 6.0. Urine electrolytes with creatinine 113, total protein 598, sodium 42 (>40 suggestive of ATN), potassium 33, chloride 27, and urea nitrogen 302. BUN/CR ratio <20 so less likely prerenal. Renal ultrasound significant for moderate bilateral renal parenchymal eschar formation, bilateral renal cortical thinning with no hydronephrosis. -Stop the offending agent, penicillin which is likely cause of possible ATN 04/08/2024: Labs were significant for hemoglobin trending down to 8.1 likely dilutional, BUN 41 and creatinine 4.4, phosphorus 5.8. Ordered ZAINAB screen, ANCA, antiproteinase 3, antimyeloperoxidase and complement level, and we will plan for renal biopsy if ANA LAURA doesn't resolve in a couple of days. -Continue to monitor renal panel -Patient will undergo 3.5 hours hemodialysis session x 1 this morning again, and we will plan for 3 L ultrafiltration goal. -Can consider trying bumex 1-2mg x1 to increase urine output. 04/10/2024: Her fingerstick blood sugar this morning was 483, hemoglobin 8.9, Chemistry panel significant for potassium 5.0, BUN 53, creatinine 5.6, and blood sugar 596. The patient is planned to undergo hemodialysis this morning. 04/11/2024: sodium 139, potassium 3.4, anion gap 18, BUN 51 and creatinine 4.7 with blood glucose 350, troponin trended up to 1.854. We will hold off on dialysis for today, and proceed with dialysis tomorrow morning. #Hypocalcemia, improved 04/05 #Hyperphosphatemia -Improving Secondary to ANA LAURA on CKD -Started on calcium carbonate 600 Mg twice daily -We will get phosphorus level tomorrow morning again after HD as after hemodialysis it significantly improved to 6.0, we will hold on sevelamer. -Continue to monitor renal panel #Hypertensive emergency, resolved #Acute encephalopathy #Stroke rule out #Hx of CVA 2018 #Acute nephrolithiasis #Hx of renal calculi #Acute hypoxemic respiratory failure #Community-acquired pneumonia #GEMMA/OHS on oxygen HS #NSTEMI type II (improving) #HTN, HLD #IDDM type II -Management deferred to primary hospitalist team. Thank you for your opportunity to participate nephrology team in this patient care. The patient's management plan was discussed with my attending physician MD Jose Serrano MD, PGY2 Attending Provider Attestation/Addendum Patient seen and examined with resident physician Dr. Nesbitt. Note reviewed, agree with findings and recommendations. Patient currently in ICU. Patient got intubated for hypoxic respiratory failure. Patient did receive dialysis yesterday. Will hold today. Critical care time more than 35 minutes regarding plan of care and disease management. Labs/medications reviewed. Plan of care discussed with ICU team. Altered mental status, twitching, weakness-neurology on the case. CSF fluid showed gram-positive cocci on the stain and culture was negative.. Working diagnosis >??meningitis/encephalitis. On antibiotics. Brain MRI showed small stroke in the brainstem and basal ganglia.
[2024-04-11 17:19] LABS: Allen Test Performed/OK; Base Excess -1 (-3-3); HCO3 24 mEq/L (20-26); Inspired Oxygen, FIO2 45 %; O2 Saturation 93 % (91-98); PCO2 40 mmHg (32.0-48.0); PO2 74 mmHg (83-108); Puncture Site Left Radial; pH, Arterial 7.39 (7.35-7.45)
--- NOTE | 2024-04-11 17:39 | PD.IMPROG ---
Documentation for date of: 04/11/24 Subjective Subjective Interval history: Patient seen and examined at the bedside. Patient still intubated and sedated. Troponins peaked at 1.8 and recommend no further troponins. EKG changes noted from yesterday there is no evidence of any STEMI and no need of any urgent cardiac catheterization now and can perform the ischemic workup later when the patient improved from a stroke and other acute medical conditions she has at the present point of time. This evening patient was found to be in atrial fibrillation with RVR up to 170 bpm. Patient blood pressure was soft around 110/70 mmHg and also at 100/60 mmHg with elevated heart rate. Ordered amiodarone bolus along with amiodarone drip and also 1 dose of metoprolol 2.5 mg IV x 1. Patient's chest Vascor is elevated but no anticoagulation for now given the acute stroke as well as blood during bronchoscopy. If there are no contraindications patient can be started on anticoagulation but only after discussion with urologist regarding any risk of hemorrhagic conversion with acute stroke Continue with aspirin statin and beta-vero Patient is continuing dialysis at present point of time and keep potassium between 4 and 5 and keep magnesium greater than 2.0. Exam Vital Signs Temp Pulse Resp BP Pulse Ox O2 Del Method O2 Flow Rate 98.0 F 112 H 39 H 129/66 100 Mechanical Ventilation 13 04/11/24 12:00 04/11/24 17:15 04/11/24 14:53 04/11/24 17:15 04/11/24 17:15 04/11/24 04:15 04/10/24 20:26 FiO2 45 04/11/24 16:00 Narrative Exam General: Alert and oriented x 0. Intubated on mechanical ventilation. Eyes: Pupils are equal and reactive to light bilaterally. HEENT: Atraumatic, normocephalic. Difficult to assess JVD. Mucosa moist. Cardiovascular: Normal S1 and S2. Irregularly irregular. 2/6 systolic murmur at the apex. Peripheral edema noted Respiratory: No respiratory distress. Lungs are clear to auscultation bilaterally. No wheezing or crackles heard. Abdomen: Soft, nontender, nondistended. Skin: No rash. Warm to touch. Musculoskeletal: No gross injuries. Neuro: Limited neuroexam as patient is intubated and sedated Objective Labs 04/11/24 04:15 04/11/24 19:42 Labs: Laboratory Results - last 24 hr 04/10/24 04/10/24 04/11/24 20:32 23:00 01:28 WBC RBC Hgb Hct MCV MCH MCHC RDW Std Deviation Plt Count Neut % (Auto) Lymph % (Auto) [place] % (Auto) Eos % (Auto) Baso % (Auto) Neut # (Auto) Lymph # (Auto) [place] # (Auto) Eos # (Auto) Baso # (Auto) Immature Gran # (Auto) Absolute Nucleated RBC Immature Gran % Nucleated RBC % Puncture Site ABG pH ABG pCO2 ABG pO2 ABG HCO3 ABG O2 Saturation ABG Base Excess FiO2 Sodium 138 Potassium 3.2 L D 3.5 Chloride 98 Carbon Dioxide 22.4 Anion Gap 18 H BUN 36 H Creatinine 3.8 H D Estim Creat Clear Calc 15.2 L eGFR 13 L* BUN/Creatinine Ratio 9 L Glucose 359 H D Calculated Osmolality 297 H Calcium 8.5 Corrected Calcium 8.7 Total Bilirubin 0.3 AST 34 ALT 23 Alkaline Phosphatase 116 Troponin I 1.814 H* D Total Protein 7.8 Albumin 3.8 Globulin 4.0 H Albumin/Globulin Ratio 1.0 L Random Vancomycin 04/11/24 04/11/24 04/11/24 04:15 05:29 07:45 WBC 9.9 RBC 2.89 L Hgb 8.1 L Hct 25.9 L MCV 90 MCH 28.0 MCHC 31.3 RDW Std Deviation 50.8 H Plt Count 298 Neut % (Auto) 86 H Lymph % (Auto) 4 L [place] % (Auto) 7 Eos % (Auto) 0 Baso % (Auto) 0 Neut # (Auto) 8.5 H Lymph # (Auto) 0.4 L [place] # (Auto) 0.7 Eos # (Auto) 0.0 Baso # (Auto) 0.0 Immature Gran # (Auto) 0.20 H Absolute Nucleated RBC 0.04 H Immature Gran % 2 H Nucleated RBC % 0 Puncture Site Arterial Line ABG pH 7.40 D ABG pCO2 40 D ABG pO2 93 ABG HCO3 25 ABG O2 Saturation 98 ABG Base Excess 0 FiO2 21 Sodium 139 Potassium 3.4 Chloride 98 Carbon Dioxide 23.0 Anion Gap 18 H BUN 51 H Creatinine 4.7 H* D Estim Creat Clear Calc 12.0 L eGFR 10 L* BUN/Creatinine Ratio 11 L Glucose 350 H Calculated Osmolality 305 H Calcium 8.7 Corrected Calcium 9.0 Total Bilirubin 0.3 AST 28 ALT 18 Alkaline Phosphatase 98 Troponin I 1.854 H* Total Protein 6.9 Albumin 3.6 Globulin 3.3 Albumin/Globulin Ratio 1.1 L Random Vancomycin 13.7 04/11/24 17:04 WBC RBC Hgb Hct MCV MCH MCHC RDW Std Deviation Plt Count Neut % (Auto) Lymph % (Auto) [place] % (Auto) Eos % (Auto) Baso % (Auto) Neut # (Auto) Lymph # (Auto) [place] # (Auto) Eos # (Auto) Baso # (Auto) Immature Gran # (Auto) Absolute Nucleated RBC Immature Gran % Nucleated RBC % Puncture Site Left Radial ABG pH 7.39 ABG pCO2 40 ABG pO2 74 L ABG HCO3 24 ABG O2 Saturation 93 ABG Base Excess -1 FiO2 45 Sodium Potassium Chloride Carbon Dioxide Anion Gap BUN Creatinine Estim Creat Clear Calc eGFR BUN/Creatinine Ratio Glucose Calculated Osmolality Calcium Corrected Calcium Total Bilirubin AST ALT Alkaline Phosphatase Troponin I Total Protein Albumin Globulin Albumin/Globulin Ratio Random Vancomycin ABG Interpretation ABG results: 04/05/24 04/06/24 04/06/24 13:11 05:17 13:37 ABG pH 7.23 L 7.23 L ABG pCO2 39 31 L ABG pO2 54 L* 70 L ABG HCO3 16 L 13 L ABG O2 Saturation 86 L 92 ABG Base Excess -11 L -13 L VBG pH 7.23 L VBG pCO2 34 L VBG pO2 35 VBG Base Excess -13 L 04/06/24 04/07/24 04/08/24 16:56 12:14 14:46 ABG pH 7.42 D 7.39 7.36 ABG pCO2 35 40 44 ABG pO2 69 L 79 L 40 L* D ABG HCO3 23 24 25 ABG O2 Saturation 94 94 71 L ABG Base Excess -2 -1 -1 VBG pH VBG pCO2 VBG pO2 VBG Base Excess 04/08/24 04/08/24 04/10/24 16:20 17:19 09:05 ABG pH 7.34 L 7.35 Cancelled ABG pCO2 46 45 Cancelled ABG pO2 36 L* 113 H D Cancelled ABG HCO3 25 25 Cancelled ABG O2 Saturation 63 L 97 Cancelled ABG Base Excess -1 -1 Cancelled VBG pH VBG pCO2 VBG pO2 VBG Base Excess 04/10/24 04/10/24 04/10/24 09:41 11:45 14:26 ABG pH 7.10 L* D 7.12 L* 7.20 L ABG pCO2 75 H* D 73 H* 58 H D ABG pO2 71 L D 75 L 78 L ABG HCO3 23 24 23 ABG O2 Saturation 89 L 90 L 93 ABG Base Excess -7 L -6 L -5 L VBG pH VBG pCO2 VBG pO2 VBG Base Excess 04/10/24 04/11/24 04/11/24 15:21 05:29 17:04 ABG pH 7.25 L 7.40 D 7.39 ABG pCO2 52 H 40 D 40 ABG pO2 90 93 74 L ABG HCO3 23 25 24 ABG O2 Saturation 95 98 93 ABG Base Excess -5 L 0 -1 VBG pH VBG pCO2 VBG pO2 VBG Base Excess Assessment & Plan A&P Narrative A 64-year-old female with past medical history of CVA in 2018 with residual left-sided deficits, type 2 diabetes mellitus, hyperlipidemia, essential hypertension, nephrolithiasis, chronic anemia was admitted to the hospital for altered mental status or acute encephalopathy on 04/05/2024. Patient presentation included slurred speech along with difficulty finding sentences Left-sided facial droop. Patient was admitted to the regular telemetry floor and started on stroke workup. Patient had ANA LAURA during the admission with worsening encephalopathy and was started on dialysis during this admission after placement of a dialysis catheter. Patient also had acute respiratory failure secondary to possible community-acquired pneumonia and obesity hypoventilation syndrome. MRI could not be done initially and because of the altered mental status and unable to follow commands. An echocardiogram was performed during the admission which showed an EF 55 to 60% with a negative bubble study and normal RV function. Initially patient was upgraded to ICU on 04/08/2023 for increased oxygen requirements as well as altered mental status for closer monitoring. Patient started on Levophed and IV she was hypotensive after dialysis and then she improved and plan was to downgrade her to the floors. Patient did have an episode of severe hypoxia and was unable to protect her airways and was intubated for airway protection. A bronchoscopy was also done which showed some blood but no clear evidence of bleeding. Eventually an MRI was done which showed 2 mm acute infarct of the anterior right brainstem pontine level and 14 mm acute infarct of the right basal ganglia. EEG showed diffuse slowing suggestive of encephalopathy left unclear etiology lumbar puncture was also abdominal urine encephalitis panel was also cell with a question of possible meningitis given no cephalopathy. Cardiology now consulted for further evaluation of elevated troponins. Assessment and plan: 1. New onset atrial fibrillation with RVR 2. Elevated troponins-mostly NSTEMI type II from supply/demand mismatch 3. Acute stroke/CVA 4. Acute encephalopathy-secondary to stroke versus possible meningitis and encephalitis being ruled out versus metabolic encephalopathy. 4. Acute hypoxic respiratory failure s/p intubation and sedation on mechanical ventilation 5. Community-acquired pneumonia 6. End-stage renal disease on hemodialysis-new onset 7. Nephrolithiasis-10 mm and 14 mm stones on the left side without hydronephrosis. 8. Essential hypertension 9. Diabetes mellitus 10. Hyperlipidemia 11. Chronic anemia 12. Obesity with possible obesity ventilation syndrome and GEMMA Cardiology was consulted for elevated troponins. Review of the chart showed that the patient's initial troponin was 1.3 and then decreased to 1.2 on admission and then no further troponins were drawn and today the troponins were done again and which were elevated at 0.64 and then continue to increase at 0.98. An EKG was performed which showed ST depressions in multiple leads except for lead III and V1 with 0.[address] elevation in lead aVR. Patient is intubated and sedated unable to provide any history. Patient is at increased risk for CAD given her multiple risk factors as noted above and mostly NSTEMI type II in the setting of supply/demand mismatch. Given the EKG finding patient was possible underlying CAD versus now disease and will need further ischemic evaluation at later point of time when the patient completely improves from the stroke. Echocardiogram reviewed which showed normal ejection fraction couple of days ago 04/08/2024 with any 55 to 60% with normal LV and RV function. No regional wall motion abnormalities. Recommend aspirin statin and beta-vero if blood pressure is permissible. No need of any heparin drip at the present point of time as patient was also found to have some blood during the bronchoscopy and also has an acute stroke. Troponins peaked at 1.8 and recommend no further troponins. EKG changes noted from yesterday there is no evidence of any STEMI and no need of any urgent cardiac catheterization now and can perform the ischemic workup later when the patient improved from a stroke and other acute medical conditions she has at the present point of time. New onset atrial fibrillation with RVR: This evening patient was found to be in atrial fibrillation with RVR up to 170 bpm. Patient blood pressure was soft around 110/70 mmHg and also at 100/60 mmHg with elevated heart rate. Ordered amiodarone bolus along with amiodarone drip and also 1 dose of metoprolol 2.5 mg IV x 1. Patient's chest Vascor is elevated but no anticoagulation for now given the acute stroke as well as blood during bronchoscopy. If there are no contraindications patient can be started on anticoagulation but only after discussion with urologist regarding any risk of hemorrhagic conversion with acute stroke Continue with aspirin statin and beta-vero Patient is continuing dialysis at present point of time and keep potassium between 4 and 5 and keep magnesium greater than 2.0. Patient presented with acute encephalopathy and primary team treating for meningitis and ruling out encephalitis. Patient also has acute stroke with the 12M acute infection anterior right mainstem as well as 40 mm acute infarct in the right basal ganglia. EEG also completed with diffuse slowing suggestive of encephalopathy. Neurology following. Acute hypoxic respiratory failure on mechanical ventilation as patient was hypoxic as well as unable to maintain her airway and questionable blood seen during the bronchoscopy and patient also being treated for community-acquired pneumonia. Patient does have recent acute kidney injury started on hemodialysis during this admission and nephrology following the patient closely. Further fluid management as per nephrology and diastolic function could not be evaluated on the echo because of the poor images. Patient is a significant retrolithiasis and neurology was consulted during the admission who did not recommend any emergent surgery or ureteral stent placement and recommended outpatient workup for the same Management of rest of the medical conditions as per primary team and other consultants. Thank you for the consult and allowing me to participate in the care of the patient. Cardiology will continue to follow. Chad Ngo M.D. Interventional Cardiology Time Spent With Patient Time: Total time spent is greater than 50% in coordination of care (as documented) at patient's floor/unit and/or counseling patient:
--- NOTE | 2024-04-11 19:22 | EKG_ITS ---
[facility] Test Date: 2024-04-11 Pat Name: MANSI GALVIN [facility] [employer]: GRETTA : 1960 Requested By: Fede Sims Order Number: [id number] Reading MD: Fede Sims Measurements Intervals [place] Rate: 162 P: [place]: QRS: -23 QRSD: 92 T: 159 QT: 224 QTc: 368 Interpretive Statements ATRIAL FIBRILLATION WITH RAPID VENTRICULAR RESPONSE BORDERLINE LEFT AXIS DEVIATION MARKED ST DEPRESSION, CONSIDER SUBENDOCARDIAL INJURY Compared to ECG 04/10/2024 18:12:35 ST (T wave) deviation now present Sinus rhythm no longer present T-wave abnormality no longer present Possible ischemia no longer present /store/S0/[id number].pdf
[2024-04-11] MEDS: AMIODARONE 150 MG IVPB 150 MG/100 ML BAG 600 MG IV (19:55)
[2024-04-11] MEDS: METOPROLOL TARTRATE INJ 1 MG/ML AMP 5 ML 2.5 MG IVP (20:05)
[2024-04-11] MEDS: AMIODARONE 360 MG IVPB 360 MG/200 ML BAG 33.333 MG IV (20:06)
[2024-04-11] MEDS: Magnesium Sulfate 2 GM Ivpb 2 GM/50 ML BAG IV (20:08)
[2024-04-11 20:14] LABS: Magnesium 2.6 mg/dL (1.6-2.6); Potassium 3.6 mMol/L (3.4-5.1)
[2024-04-11] MEDS: POTASSIUM CHLORIDE 10% 20 MEQ/15 ML UDC 40 MEQ GT (21:39)
[2024-04-11] MEDS: ATORVASTATIN CALCIUM 20 MG TABLET 80 MG NG (21:39)
--- NOTE | 2024-04-11 22:16 | PD.NEUROPROG ---
Documentation for date of: 04/11/24 Subjective Subjective Interval history: Patient was seen in ICU today. Patient continued to remain intubated and on mechanical ventilatory support. Patient did get the MRI done that showed acute infarction involving the pontine area and right basal ganglia. Exam - Neurology Vital Signs Temp Pulse Resp BP Pulse Ox O2 Del Method O2 Flow Rate 98.0 F 156 H 39 H 117/80 100 Mechanical Ventilation 13 04/11/24 12:00 04/11/24 20:06 04/11/24 14:53 04/11/24 20:06 04/11/24 19:21 04/11/24 04:15 04/10/24 20:26 FiO2 45 04/11/24 19:21 Narrative Exam GENERAL APPEARANCE: Well-developed, obese built female in mild distress. HEENT: Normocephalic, atraumatic, extraocular movements intact. Pupils: Equal reacting to light NECK: Supple, no JVD or bruits. CARDIOVASULAR: Heart: S1, S2 heard, regular without S3-S4 or murmur no rubs or gallops. LUNGS/CHEST: Clear to auscultation bilaterally. No rails, rhonchi, or wheezing. Normal inspection. ABDOMEN: Soft, nontender, with normal bowel sounds. No pulsatile masses. No rebound, rigidity, or guarding. Normal inspection and palpation. EXTREMITIES: Normal inspection and palpation. No edema, clubbing or cyanosis. SKIN: Warm and dry without rashes. Normal inspection. MUSCULOSKELETAL: No cervical, thoracic, lumbar or midline bony tenderness. Normal inspection. NEURO: Lethargic, not responsive to verbal commands, some intermittent purposeful movements noted in right upper and lower extremities. No more myoclonic twitching in right hemiface noted. No signs of meningeal irritation noted. Rest of the exam limited secondary to mental status PSYCHIATRIC: Limited Objective Labs 04/12/24 04:23 04/12/24 04:23 Labs: Laboratory Results - last 24 hr 04/10/24 04/11/24 04/11/24 23:00 01:28 04:15 WBC 9.9 RBC 2.89 L Hgb 8.1 L Hct 25.9 L MCV 90 MCH 28.0 MCHC 31.3 RDW Std Deviation 50.8 H Plt Count 298 Neut % (Auto) 86 H Lymph % (Auto) 4 L [place] % (Auto) 7 Eos % (Auto) 0 Baso % (Auto) 0 Neut # (Auto) 8.5 H Lymph # (Auto) 0.4 L [place] # (Auto) 0.7 Eos # (Auto) 0.0 Baso # (Auto) 0.0 Immature Gran # (Auto) 0.20 H Absolute Nucleated RBC 0.04 H Immature Gran % 2 H Nucleated RBC % 0 Puncture Site ABG pH ABG pCO2 ABG pO2 ABG HCO3 ABG O2 Saturation ABG Base Excess FiO2 Sodium 139 Potassium 3.5 3.4 Chloride 98 Carbon Dioxide 23.0 Anion Gap 18 H BUN 51 H Creatinine 4.7 H* D Estim Creat Clear Calc 12.0 L eGFR 10 L* BUN/Creatinine Ratio 11 L Glucose 350 H Calculated Osmolality 305 H Calcium 8.7 Corrected Calcium 9.0 Magnesium Total Bilirubin 0.3 AST 28 ALT 18 Alkaline Phosphatase 98 Troponin I 1.814 H* D Total Protein 6.9 Albumin 3.6 Globulin 3.3 Albumin/Globulin Ratio 1.1 L Random Vancomycin 13.7 04/11/24 04/11/24 04/11/24 05:29 07:45 17:04 WBC RBC Hgb Hct MCV MCH MCHC RDW Std Deviation Plt Count Neut % (Auto) Lymph % (Auto) [place] % (Auto) Eos % (Auto) Baso % (Auto) Neut # (Auto) Lymph # (Auto) [place] # (Auto) Eos # (Auto) Baso # (Auto) Immature Gran # (Auto) Absolute Nucleated RBC Immature Gran % Nucleated RBC % Puncture Site Arterial Line Left Radial ABG pH 7.40 D 7.39 ABG pCO2 40 D 40 ABG pO2 93 74 L ABG HCO3 25 24 ABG O2 Saturation 98 93 ABG Base Excess 0 -1 FiO2 21 45 Sodium Potassium Chloride Carbon Dioxide Anion Gap BUN Creatinine Estim Creat Clear Calc eGFR BUN/Creatinine Ratio Glucose Calculated Osmolality Calcium Corrected Calcium Magnesium Total Bilirubin AST ALT Alkaline Phosphatase Troponin I 1.854 H* Total Protein Albumin Globulin Albumin/Globulin Ratio Random Vancomycin 04/11/24 19:42 WBC RBC Hgb Hct MCV MCH MCHC RDW Std Deviation Plt Count Neut % (Auto) Lymph % (Auto) [place] % (Auto) Eos % (Auto) Baso % (Auto) Neut # (Auto) Lymph # (Auto) [place] # (Auto) Eos # (Auto) Baso # (Auto) Immature Gran # (Auto) Absolute Nucleated RBC Immature Gran % Nucleated RBC % Puncture Site ABG pH ABG pCO2 ABG pO2 ABG HCO3 ABG O2 Saturation ABG Base Excess FiO2 Sodium Potassium 3.6 Chloride Carbon Dioxide Anion Gap BUN Creatinine Estim Creat Clear Calc eGFR BUN/Creatinine Ratio Glucose Calculated Osmolality Calcium Corrected Calcium Magnesium 2.6 Total Bilirubin AST ALT Alkaline Phosphatase Troponin I Total Protein Albumin Globulin Albumin/Globulin Ratio Random Vancomycin ABG Interpretation ABG results: 04/05/24 04/06/24 04/06/24 13:11 05:17 13:37 ABG pH 7.23 L 7.23 L ABG pCO2 39 31 L ABG pO2 54 L* 70 L ABG HCO3 16 L 13 L ABG O2 Saturation 86 L 92 ABG Base Excess -11 L -13 L VBG pH 7.23 L VBG pCO2 34 L VBG pO2 35 VBG Base Excess -13 L 04/06/24 04/07/24 04/08/24 16:56 12:14 14:46 ABG pH 7.42 D 7.39 7.36 ABG pCO2 35 40 44 ABG pO2 69 L 79 L 40 L* D ABG HCO3 23 24 25 ABG O2 Saturation 94 94 71 L ABG Base Excess -2 -1 -1 VBG pH VBG pCO2 VBG pO2 VBG Base Excess 04/08/24 04/08/24 04/10/24 16:20 17:19 09:05 ABG pH 7.34 L 7.35 Cancelled ABG pCO2 46 45 Cancelled ABG pO2 36 L* 113 H D Cancelled ABG HCO3 25 25 Cancelled ABG O2 Saturation 63 L 97 Cancelled ABG Base Excess -1 -1 Cancelled VBG pH VBG pCO2 VBG pO2 VBG Base Excess 04/10/24 04/10/24 04/10/24 09:41 11:45 14:26 ABG pH 7.10 L* D 7.12 L* 7.20 L ABG pCO2 75 H* D 73 H* 58 H D ABG pO2 71 L D 75 L 78 L ABG HCO3 23 24 23 ABG O2 Saturation 89 L 90 L 93 ABG Base Excess -7 L -6 L -5 L VBG pH VBG pCO2 VBG pO2 VBG Base Excess 04/10/24 04/11/24 04/11/24 15:21 05:29 17:04 ABG pH 7.25 L 7.40 D 7.39 ABG pCO2 52 H 40 D 40 ABG pO2 90 93 74 L ABG HCO3 23 25 24 ABG O2 Saturation 95 98 93 ABG Base Excess -5 L 0 -1 VBG pH VBG pCO2 VBG pO2 VBG Base Excess Assessment & Plan Assessment and plan (1) Altered mental status: Status: Acute Assessment and plan: CSF analysis: Insignificant Will hold off on steroids, continue with the Depakote for controlling myoclonic jerks in the face MRI brain showed acute infarction involving the pontine area and right basal ganglia. Continue with aspirin and Plavix 75 mg for prophylaxis along with statin. Noted significant intracranial stenosis in the MRA even though images are degraded from motion. (2) ANA LAURA (acute kidney injury): Status: Acute Assessment and plan: Going to be on dialysis (3) Non-ST elevation (NSTEMI) myocardial infarction: Status: Acute Assessment and plan: cardiology consulted, recommended aspirin and statin (4) Acute hypoxic respiratory failure: Status: Acute Assessment and plan: Got intubated and on mechanical ventilatory support (5) Accelerated hypertension: Status: Acute Assessment and plan: Blood pressure before dialysis today was in the 200s Dropped following dialysis to the extent of needing Levophed
[2024-04-12] VITALS (38 sets, daily range): BP systolic 103–162; BP diastolic 50–74; PULSE 85–110; RESP 0–58; TEMP 37.2–38.1; O2SAT 93–100; BMI 42.0
[2024-04-12] MEDS: INSULIN LISPRO (AdmeLOG) 1 UNIT/0.01 ML UNIT SC ×6 (02:15→22:09)
[2024-04-12] MEDS: AMIODARONE 360 MG IVPB 360 MG/200 ML BAG 16.667 MG IV ×2 (02:30→14:12)
[2024-04-12] MEDS: ALBUTEROL/IPRATROPIUM (Duoneb) RT SOL 3 ML NEBU INH ×6 (03:01→22:40)
[2024-04-12 05:33] LABS: Base Excess 0 (-3-3); HCO3 25 mEq/L (20-26); Inspired Oxygen, FIO2 21 %; O2 Saturation 98 % (91-98); PCO2 39 mmHg (32.0-48.0); PO2 147 mmHg (83-108); pH, Arterial 7.41 (7.35-7.45)
[2024-04-12 05:34] LABS: Allen Test Performed/OK; Puncture Site Right Brachial
[2024-04-12 05:47] LABS: Basophils # (Auto) 0.1 Thou/mm3 (0.0-0.2); Basophils % (Auto) 0 % (0-2.5); Eosinophils % (Auto) 0 % (0-10); Hematocrit 26.5 % (36.0-46.0); Immature Granulocytes % (Auto) 5 % (0-0); Immature Granulocytes Auto 0.74 Thou/mm3 (0.00-0.00); Lymphocytes # (Auto) 0.7 Thou/mm3 (1.0-4.8); Lymphocytes % (Auto) 5 % (10-50); Mean Corpuscular HGB Conc 31.3 g/dl (31.0-37.0); Mean Corpuscular Hemoglobin 27.9 pg (25.0-35.0); Mean Corpuscular Volume 89 fL (80-100); Monocytes # (Auto) 1.9 Thou/mm3 (0.0-0.8); Monocytes % (Auto) 12 % (0-12); Neutrophils # (Auto) 11.7 Thou/mm3 (1.8-7.7); Neutrophils % (Auto) 78 % (37-80); Nucleated Red Blood Cell # 0.05 Thou/mm3 (0.00-0.00); Nucleated Red Blood Cell % 0 /100 WBC (0); Platelet Count 302 Thou/mm3 (140-440); RDW Standard Deviation 50.4 fL (36.4-46.3); Red Blood Count 2.97 Miln/mm3 (4.00-5.20)
[2024-04-12 06:00] LABS: Hemoglobin 8.3 g/dL (12.0-16.0)
[2024-04-12] MEDS: HEPARIN SOD INJ 5000 UNIT/ML VIAL SC ×3 (06:05→21:22)
[2024-04-12 06:13] LABS: Alanine Aminotransferase 14 U/L (10-49); Albumin, Serum 3.5 gm/dL (3.4-4.8); Albumin/Globulin Ratio 1.1 (1.2-2.2); Alkaline Phosphatase 88 U/L (46-116); Anion Gap 15 (7-16); Aspartate Amino Transferase 18 U/L (0-34); BUN/Creatinine Ratio 12 Ratio (12-20); Bilirubin,Total 0.2 mg/dL (0.3-1.2); Blood Urea Nitrogen 77 mg/dL (9-23); Calcium 9.3 mg/dL (8.3-10.6); Calcium (Corrected) 9.7 mg/dL (8.5-10.1); Carbon Dioxide 23.6 mMol/L (20.0-31.0); Chloride 101 mMol/L (98-107); Creatinine (Component) 6.3 mg/dL (0.6-1.3); Globulin 3.3 gm/dL (2.3-3.5); Glucose 387 mg/dL (74-106); Osmolality,Calculated 318 (275-295); Phosphorous 2.7 mg/dL (2.4-5.1); Potassium 3.9 mMol/L (3.4-5.1); Sodium 140 mMol/L (136-145); Total Protein 6.8 gm/dL (5.7-8.2); Vancomycin,Random 17.2 mcg/mL; eGFR 7 See Note
[2024-04-12] MEDS: VALPROATE SOD INJ 750 MG in SODIUM CHLORIDE 0.9% 50 ML 55 MG IV ×3 (06:31→21:21)
[2024-04-12] MEDS: PANTOPRAZOLE INJ 40 MG VIAL IVP (09:53)
[2024-04-12] MEDS: CALCIUM CARBONATE 600 MG TABLET PO ×2 (09:54→20:20)
[2024-04-12] MEDS: CLOPIDOGREL BISULFATE 75 MG TABLET NG (10:10)
--- NOTE | 2024-04-12 10:14 | ESPR_ITS ---
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 Upon arrival to the ED, stroke alert was called. CT head negative, however patient was outside of TNK window. MRI brain recommended but given that patient continues to have altered mental status and cannot follow commands in addition to requiring HFNC, will not be able to obtain. Echo obtained on 04/05, negative bubble study and EF 55 to 60%. Carotid Doppler was poor study due to lack of patient cooperation. Labs obtained in ED showed creatinine of 5.4, which is significantly elevated from baseline of 1.0. Thus, TDC was placed and patient has since received 2 dialysis sessions (04/06, 04/07), however has not had any improvement in her mental status. Throughout hospital course, patient has had 3 rapid responses. On 04/06 rapid response for fever of 103 ?F, 04/07 for episode of twitching on right side of face, and again on 04/07 for episode of apnea for few seconds after dose of lorazepam. ICU was consulted given that patient has had increased oxygen requirements and altered mental status and evaluated if patient will require closer monitoring to protect her airways. 04/08: No acute overnight events reported. She was noted to have increased oxygen requirements after coming back from repeat CT head. She was originally on HFNC at 30 L/min, 50% FiO2 and is currently on 30 L/min and now 80% FiO2. Repeat CT head showed no gross hemorrhage or mass effect but patient motion is significantly degraded image quality. Patient noted to have less spontaneous movements compared to yesterday and contacted MRI regarding possibility of obtaining imaging. However, they will not be able to accommodate patients on high flow nor on BiPAP. Underwent third session of hemodialysis today, with removal of 3 L of fluid. Blood pressure dropped to 86/48 and was given Levophed. 04/09: No acute overnight events reported. Only had 30 cc of urine output the entire shift, 2.5 cc/h. Did not require Levophed or Precedex. Underwent lumbar puncture and evening of 04/08, noted to have opening pressure at 33 cm H2O and elevated protein and glucose. Also had an EEG that showed diffuse slowing, suggestive of diffuse encephalopathy of metabolic versus degenerative versus vascular origin. No epileptic waveforms noted but given that patient's right sided facial twitching and spontaneous movements have improved, will continue with valproate per recs. Neurology also recommended starting 1 g Solu-Medrol daily. Oxygen needs decreased from HFNC to oxy mask, and again attempted to obtain MRI but were unable due to oxy mask and body habitus. NG tube placed to start feeds given the patient has been n.p.o. since admission and will increase glargine from 10 to 15 units to accommodate. 04/10: No acute overnight events reported. At 9:30 AM, rapid response called due to O2 saturation of 86% on 15 L nonrebreather. Suspect possible aspiration event and RT subsequently suctioned with increase in O2 saturation to high 80s on 15 L. Upon assessment, GCS of 3 and determined that patient unable to protect her airways and was upgraded to ICU for RSI. At around 10:30 AM, patient underwent successful RSI. A.M. labs showed glucose of 596 with anion gap of 17 and beta hydroxybutyrate of 2.1, suspect due to recently starting high-dose steroids. Glargine was originally increased to accommodate from 10 to 15 units, but patient will now be started on 20 units glargine daily. ABG obtained prior to intubation showed pH 7.1, pCO2 75, and pO2 71. Repeat after intubation showed pH 7.12, pCO2 73, and pO2 75. Subsequent ABG ordered and will follow-up. Given that patient is now intubated, revisited MRI and we will attempt to obtain again in the afternoon. Will also attempt hemodialysis later today. 04/11: No acute overnight events reported. MRI was obtained on 04/10 that showed acute infarct of anterior right brainstem (pontine level) and acute infarct of right basal ganglia. Also underwent dialysis yesterday but was only able to tolerate 2 hours and 15 minutes with removal of 700 mL due to hypotension (78/41) while on Levophed. Underwent bronchoscopy which showed few areas of submucosal bleeding noted as well as nilson blood throughout most of the airway, however serial lavages returned clear fluid. [place]etah in evening showed baseline of HR 89, SVI 47, CI 4.2 and HR 86, SVI 43, CI 3.8 after PLR indicating that patient is not fluid responsive. Noted to become agitated in evening (opening eyes and fighting vent) with BP spike to 192/105. Precedex was started and was on for 2 hours and BP resolved without any other intervention. UOP 15 cc entire shift. Spoke to nephrology today and no HD, will reassess tomorrow. Blood sugar better controlled, in 300s. Will increase glargine from 20 to 40 units starting today. Carotid Doppler obtained showing 30 to 50% stenosis of right ICA and 10 to 20% stenosis of left ICA. 04/12: Noted to have new onset A-fib with RVR at 70 p.m. on 04/11 with heart rate in 160s to 170s. Given metoprolol to tartrate 2.5 mg IV x 1, amiodarone bolus, and then amiodarone drip and patient converted to sinus tachycardia. In AM upon evaluation, patient remains in sinus tachycardia. Otherwise, no other overnight events. Did not require pressors or Precedex overnight. UOP noted to be 50 cc per entire shift. Plans to undergo fifth session of hemodialysis tomorrow. Blood sugars remain elevated in low to mid 300s after changing glargine from 20 to 40 units and continues to receive 6 units SSI every 4 hours. Will increase glargine to 50 units daily and continue SSI. Ventilator settings of VT 350, RR 36, PEEP 14, FiO2 45% were changed to RR of 24, PEEP of 10, and FiO2 of 35% given ABG that showed pH 7.41, pCO2 39, and pO2 147. Repeat ABG ordered to assess changes in ventilator settings. Remained afebrile overnight but WBC noted to increase from 9.9 to 15.0. Thus, repeat CXR obtained and showed improvement in bilateral infiltrates paired to previous CXR in 04/10. Exam Vital Signs Temp Pulse Resp BP Pulse Ox O2 Del Method O2 Flow Rate 99.6 F 93 36 H 133/66 H 99 Mechanical Ventilation 13 04/12/24 08:00 04/12/24 08:00 04/12/24 06:50 04/12/24 08:00 04/12/24 08:00 04/12/24 08:00 04/12/24 06:00 FiO2 45 04/12/24 08:00 Narrative Exam General: Mechanically ventilated, not on sedation, not on pressors, not responding to questions/following commands HEENT: NC/AT, mucous membranes moist, bilateral sclera anicteric Cardiovascular: regular rate and rhythm, S1/S2 present, no murmurs appreciated Pulmonary: clear to auscultation bilaterally, no rales/rhonchi/wheezes Abdominal: Obese, soft, no guarding Musculoskeletal: no peripheral edema, dorsalis pedis pulses 3+ Skin: PIV, TDC, acanthosis nigricans in neck Neuro: ? E (2), V (T), M (4) -> GCS 7T ? Cranial reflex, pupillary light reflex, and gag reflex tact ? Babinski: big toe upward deflection bilaterally Objective Labs 04/13/24 04:42 04/13/24 04:42 Labs: Laboratory Results - last 24 hr 04/11/24 04/11/24 04/12/24 17:04 19:42 04:23 WBC 15.0 H D RBC 2.97 L Hgb 8.3 L Hct 26.5 L MCV 89 MCH 27.9 MCHC 31.3 RDW Std Deviation 50.4 H Plt Count 302 Neut % (Auto) 78 Lymph % (Auto) 5 L [place] % (Auto) 12 Eos % (Auto) 0 Baso % (Auto) 0 Neut # (Auto) 11.7 H Lymph # (Auto) 0.7 L [place] # (Auto) 1.9 H Eos # (Auto) 0.0 Baso # (Auto) 0.1 Immature Gran # (Auto) 0.74 H Absolute Nucleated RBC 0.05 H Immature Gran % 5 H Nucleated RBC % 0 Puncture Site Left Radial ABG pH 7.39 ABG pCO2 40 ABG pO2 74 L ABG HCO3 24 ABG O2 Saturation 93 ABG Base Excess -1 FiO2 45 Sodium 140 Potassium 3.6 3.9 Chloride 101 Carbon Dioxide 23.6 Anion Gap 15 BUN 77 H Creatinine 6.3 H* D Estim Creat Clear Calc 9.0 L eGFR 7 L* BUN/Creatinine Ratio 12 Glucose 387 H Calculated Osmolality 318 H Calcium 9.3 Corrected Calcium 9.7 Phosphorus 2.7 Magnesium 2.6 3.0 H Total Bilirubin 0.2 L AST 18 ALT 14 Alkaline Phosphatase 88 Total Protein 6.8 Albumin 3.5 Globulin 3.3 Albumin/Globulin Ratio 1.1 L Random Vancomycin 17.2 04/12/24 05:23 WBC RBC Hgb Hct MCV MCH MCHC RDW Std Deviation Plt Count Neut % (Auto) Lymph % (Auto) [place] % (Auto) Eos % (Auto) Baso % (Auto) Neut # (Auto) Lymph # (Auto) [place] # (Auto) Eos # (Auto) Baso # (Auto) Immature Gran # (Auto) Absolute Nucleated RBC Immature Gran % Nucleated RBC % Puncture Site Right Brachial ABG pH 7.41 ABG pCO2 39 ABG pO2 147 H D ABG HCO3 25 ABG O2 Saturation 98 ABG Base Excess 0 FiO2 21 Sodium Potassium Chloride Carbon Dioxide Anion Gap BUN Creatinine Estim Creat Clear Calc eGFR BUN/Creatinine Ratio Glucose Calculated Osmolality Calcium Corrected Calcium Phosphorus Magnesium Total Bilirubin AST ALT Alkaline Phosphatase Total Protein Albumin Globulin Albumin/Globulin Ratio Random Vancomycin ABG Interpretation ABG results: 04/05/24 04/06/24 04/06/24 13:11 05:17 13:37 ABG pH 7.23 L 7.23 L ABG pCO2 39 31 L ABG pO2 54 L* 70 L ABG HCO3 16 L 13 L ABG O2 Saturation 86 L 92 ABG Base Excess -11 L -13 L VBG pH 7.23 L VBG pCO2 34 L VBG pO2 35 VBG Base Excess -13 L 04/06/24 04/07/24 04/08/24 16:56 12:14 14:46 ABG pH 7.42 D 7.39 7.36 ABG pCO2 35 40 44 ABG pO2 69 L 79 L 40 L* D ABG HCO3 23 24 25 ABG O2 Saturation 94 94 71 L ABG Base Excess -2 -1 -1 VBG pH VBG pCO2 VBG pO2 VBG Base Excess 04/08/24 04/08/24 04/10/24 16:20 17:19 09:05 ABG pH 7.34 L 7.35 Cancelled ABG pCO2 46 45 Cancelled ABG pO2 36 L* 113 H D Cancelled ABG HCO3 25 25 Cancelled ABG O2 Saturation 63 L 97 Cancelled ABG Base Excess -1 -1 Cancelled VBG pH VBG pCO2 VBG pO2 VBG Base Excess 04/10/24 04/10/24 04/10/24 09:41 11:45 14:26 ABG pH 7.10 L* D 7.12 L* 7.20 L ABG pCO2 75 H* D 73 H* 58 H D ABG pO2 71 L D 75 L 78 L ABG HCO3 23 24 23 ABG O2 Saturation 89 L 90 L 93 ABG Base Excess -7 L -6 L -5 L VBG pH VBG pCO2 VBG pO2 VBG Base Excess 04/10/24 04/11/24 04/11/24 15:21 05:29 17:04 ABG pH 7.25 L 7.40 D 7.39 ABG pCO2 52 H 40 D 40 ABG pO2 90 93 74 L ABG HCO3 23 25 24 ABG O2 Saturation 95 98 93 ABG Base Excess -5 L 0 -1 VBG pH VBG pCO2 VBG pO2 VBG Base Excess 04/12/24 05:23 ABG pH 7.41 ABG pCO2 39 ABG pO2 147 H D ABG HCO3 25 ABG O2 Saturation 98 ABG Base Excess 0 VBG pH VBG pCO2 VBG pO2 VBG Base Excess Quality Measures Quality Measures VTE prophylaxis Advance care planning discussed with:: child Assessment & Plan Assessment Current Active Medications: Generic Name Dose Route Start Last Admin Trade Name Freq PRN Reason Stop Dose Admin Acetaminophen 650 mg 04/05/24 23:06 Acetaminophen 325 Mg Tablet PO 05/05/24 23:05 Q6H PRN PAIN SCALE 1-3 (mild Acetaminophen 650 mg 04/05/24 23:06 Acetaminophen 325 Mg Tablet PO 05/05/24 23:05 Q6H PRN Fever >100 Albuterol/Ipratropium 3 ml 04/10/24 11:45 04/12/24 06:46 Albuterol/Ipratropium (Duoneb) Rt Princess 3 Ml Nebu INH 05/10/24 11:44 3 ml Q4HRRT DELMY Administration Aspirin 300 mg 04/12/24 10:15 Aspirin 325 Mg Tablet NG 05/12/24 10:14 QDAY DELMY Atorvastatin Calcium 80 mg 04/11/24 21:00 04/11/24 21:39 Atorvastatin Calcium 20 Mg Tablet NG 05/11/24 20:59 80 mg HS DELMY Administration Calcium Carbonate 600 mg 04/06/24 14:45 04/12/24 09:54 Calcium Carbonate 600 Mg Tablet PO 05/06/24 14:44 600 mg BID DELMY Administration Clopidogrel Bisulfate 75 mg 04/12/24 09:00 04/12/24 10:10 Clopidogrel Bisulfate 75 Mg Tablet NG 05/12/24 08:59 75 mg QDAY DELMY Administration Dextrose 25 ml 04/07/24 10:52 Dextrose 50%-Water Inj 50 Ml Syringe IV 05/07/24 10:51 Q15MIN PRN BG 50-70 responsive npo pt Dextrose 50 ml 04/07/24 10:52 Dextrose 50%-Water Inj 50 Ml Syringe IV 05/07/24 10:51 Q15MIN PRN BG <50 OR BG <70 & pt unresponsive Glucagon 1 mg 04/07/24 10:52 Glucagon Inj 1 Mg Vial IM Q15MIN PRN BG <70, and no IV access Heparin Sodium (Porcine) 3,300 unit 04/06/24 15:03 04/10/24 20:13 Heparin Sod Inj 1000 Unit/Ml Vial 10 Ml INDWELLCAT 04/20/24 15:02 3,300 unit PRN PRN Administration DIALYSIS Heparin Sodium (Porcine) 5,000 unit 04/09/24 08:00 04/12/24 06:05 Heparin Sod Inj 5000 Unit/Ml Vial SC 04/23/24 07:59 5,000 unit Q8HR DELMY Administration Albumin Human 25 gm in 100 mls @ 100 mls/min 04/06/24 08:27 04/08/24 10:03 Albuminar-25 Ivpb IV 100 mls/min PRN PRN Administration DIALYSIS Dexmedetomidine/Sodium Chloride 200 mcg in 50 mls @ 5.31 mls/hr 04/08/24 09:17 04/11/24 05:00 Precedex Ivpb IV 05/08/24 09:16 0 mcg/kg/hr .Q9H25M PRN 0 mls/hr Per PROTOCOL Titration Protocol 0.2 MCG/KG/HR Norepinephrine/Dextrose 8 mg in 250 mls @ 9.956 mls/hr 04/08/24 09:53 04/11/24 02:35 Levophed In D5w 8mg/250ml IV 05/08/24 09:52 0 mcg/kg/min .Q24H PRN 0 mls/hr PER PROTOCOL Titration Protocol 0.05 MCG/KG/MIN Methylprednisolone Sodium 104 mls @ 104 mls/hr 04/09/24 12:00 04/10/24 13:27 Succinate 250 mg/ Sodium IV 04/16/24 11:59 Not Given Chloride Q6HR DELMY Fentanyl Citrate 2,500 mcg in 250 mls @ 2.5 mls/hr 04/10/24 09:47 Sublimaze Inj 2,500 Mcg/250 Ml Bag IV 04/15/24 09:46 .Q24H PRN PER PROTOCOL Protocol 25 MCG/HR Propofol 1,000 mg in 100 mls @ 2.955 mls/hr 04/10/24 09:50 Diprivan Ivpb IV 05/10/24 09:49 .Q24H PRN PER PROTOCOL Protocol 5 MCG/KG/MIN Valproic Acid 750 mg/ Sodium 57.5 mls @ 55 mls/hr 04/11/24 14:00 04/12/24 06:31 Chloride IV 05/08/24 21:59 55 mls/hr Q8HR DELMY Administration Amiodarone HCl/Dextrose 360 mg in 200 mls @ 16.667 mls/hr 04/12/24 01:48 04/12/24 02:30 Nexterone Ivpb IV 04/13/24 01:47 16.667 mls/hr .Q12H DELMY Administration Phenylephrine HCl 40 mg/ 100 mls @ 1.422 mls/hr 04/11/24 20:11 Sodium Chloride IV 05/11/24 20:10 .Q24H PRN Per Cardiogenic Protocol Protocol 0.1 MCG/KG/MIN Insulin Glargine 50 unit 04/13/24 09:00 Insulin Glargine (Lantus) 5 Unit/0.05 Ml (Per 5 Units) SC 05/13/24 08:59 QAM [facility] Insulin Human Lispro 0 unit 04/10/24 14:00 04/12/24 06:01 Insulin Lispro (Admelog) 1 Unit/0.01 Ml Unit SC 05/10/24 13:59 6 unit Q4HR DELMY Administration Protocol Labetalol HCl 10 mg 04/05/24 23:55 Labetalol Inj 5 Mg/Ml Vial 20 Ml IVP 05/05/24 23:54 X1 PRN BP >220/110 Lidocaine HCl 9 ml 04/06/24 11:00 Lidocaine Inj Pf 1% 5 Ml Vial INFL X1 PRN LOCAL ANESTHESIA Protocol Ondansetron HCl 4 mg 04/05/24 23:06 Ondansetron Inj 2 Mg/Ml Inj 2 Ml IV 05/05/24 23:05 Q6H PRN NAUSEA OR VOMITING Protocol Pantoprazole Sodium 40 mg 04/06/24 09:00 02/09/25 09:53 Pantoprazole Inj 40 Mg Vial IVP 05/06/24 08:59 40 mg QDAY DELMY Administration Pharmacy Consult 1 each 04/09/24 08:54 Pharmacy Renal Dose Adjustment 1 Ea XX 05/08/24 08:59 QDAY PRN protocol Plan Sofiya Vogt is a 64-year-old female with a past medical history of 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 She was upgraded to ICU on 04/08 and then downgraded on 04/10. However, rapid response called on 04/10 for desaturation (see event note for details) and upgraded on 04/10 for airway protection requiring RSI. 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 CT head negative, including repeat although severely limited due to patient movement. MRI/MRA brain: 12 mm acute infarct of the anterior right brainstem (pontine level), 14 mm acute infarct of right basal ganglia. Status post EEG on 04/08: diffuse slowing, suggestive of encephalopathy of metabolic vs degenerative vs vascular origin without epileptic waveforms Status post lumbar puncture on 04/08: glucose 148 H, protein 54 H, WBC 4 wnl, GPC on cultures ? Neurology consulted, appreciate recommendations ? No longer considering steroids ? Valproate IV every 8 hours ? Follow-up autoimmune encephalitis panel, West Nile, HSV, and Cryptococcal studies ? Follow-up ZAINAB, ANCA, C3, C4 ? Follow-up carotid duplex #Ischemic stroke, right brainstem (pontine level), prior basal ganglia #History of stroke with residual left-sided deficits ? Aspirin 325 mg via NG daily ? Clopidogrel 75 mg via NG daily ? Atorvastatin 80 mg via NG daily #? Meningitis Ceftriaxone and azithromycin (04/05-04/07) Doxycycline (04/07-04/10) Cefepime (04/07-04-10) Ampicillin and vancomycin (04/10-04/11) Unlikely meningitis given only 4 WBCs from lumbar puncture and patient has remained afebrile and no leukocytosis. Will discontinue antibiotics per neurology recommendations. ? CSF culture: No growth Cardiovascular #ACS, NSTEMI #Elevated troponins Elevated on admission, but decreased from 1.3 to 1.2 and were no longer trended. ST depressions seen on telemetry on 04/10 and repeat troponin of 0.64 that increased to 0.98 and plateaued at 1.8. Repeat EKG showed ST depressions in V2- V6 (most prominent in V4-6). ? Cardiology consulted, recommended aspirin, statin, and beta-vero if neurology is in agreement; no heparin drip and no LHC indicated at this time given patient's clinical status ? Troponins plateaued at 1.8 #A-fib with RVR, currently sinus tach 04/11, went into a-fib with RVR at 160-170 bpm. Given metoprolol tartrate 2.5 mg IV x 1, amiodarone bolus, and then amiodarone drip. ? Continue amiodarone drip Pulmonary #Acute hypoxic respiratory failure, secondary to ? aspiration pneumonitis After RR on 04/10, ABG prior to RSI: pH 7.1, pCO2 75, pO2 71 -> ABG after RSI + mechanical ventilation: pH 7.2, pCO2 58, and pO2 78. 04/11 AM ABG: pH 7.4, pCO2 40, pO2 93, which are much improved compared to prior. 04/12 AM ABG: pH 7.41, pCO2 39, pO2 147 -> ABG after ventilation changes: pH 7.4, pCO2 40, pO2 91. During intubation, foreign material (? tube feeds) were seen and could be possible etiology of desaturation. ? Mechanically ventilated: VT 350, RR 36, PEEP 14, FiO2 45% -> VT 350, RR 24, PEEP 10, FiO2 35% on 04/12 #[place], CAP vs aspiration pneumonitis CT chest on admission showed bilateral pneumonia. CXR 04/09 again showed bilateral pneumonia but improved compared to CXR on 04/07. 04/10, RR due to desaturation with suspected aspiration event causing likely aspiration pneumonitis. Since already received 7 days antibiotics, current antibiotics will be for encephalitis versus meningitis. Sputum culture 04/10: mixed quentin Blood culture 04/06: no growth COVID, RSV, flu Cocci IgG/IgM, and MRSA nares negative ? Follow-up bronchial lavage culture 04/10 ? Follow-up repeat blood culture 04/10 Gastrointestinal #Transaminitis, resolved Has received multiple antibiotics #GI prophylaxis ? Pantoprazole 40 mg IV daily #NG tube placed, 04/09 KUB showed Dobhoff NG tube in distal stomach/satisfactory position Dobhoff removed during MRI on 04/09 and replaced with another NG tube ? House Superintendent referral to begin NG tube feedings -> HOLDING tube feeds ? NG tube in place, suctioning off Renal #Acute kidney injury, improving on HD Status post placement of TDC. Hemodialysis sessions 04/06, 04/07, 04/08, 04/09. ? HD per nephrology recommendations ? Renally dose medications ? Avoid nephrotoxic agents #History of staghorn calculi #Nephrolithiasis, 10 mm and 14 mm lower pole left renal calculi without hydronephrosis seen on CT A/P ? Urology consulted, not surgical candidate at this time #Hypercalcemia, resolved #Hyperphosphatemia ? Continue hemodialysis Endocine #Type 2 diabetes mellitus A1c 7.6%. Glucose has increased significantly in setting of IV steroids, but have been held on 04/10. BS 595 at 1200 -> 367 1900 -> 299-320 til now. 40 units glargine in 24 hours, 62 units lispro during day (12 units SSI), 15 units regular insulin. 41 units lispro overnight. Beta hydroxybutyrate 2.1 -> 1.7, AG 18. ? SSI (scale 3) ? 50 units glargine every morning Heme #Chronic, normocytic anemia Slowly downtrending but stable. Has not had bloody bowel movements or gross hematuria. ? Continue to monitor Infectious disease Urine culture 04/05 and 04/06: No growth Blood culture 04/05: No growth Sputum culture 04/06 and 04/10: Mixed quentin MRSA negative CSF culture: GPC, no growth Bronchial lavage 04/10: NGTD Blood culture 04/10: NGTD Ceftriaxone 04/05-04/06 Azithromycin 04/05-04/06 Cefepime 04/06-04/11 Doxycycline 04/06-04/09 Vancomycin 04/10-04/11 Ampicillin 04/10 #? Meningitis ? See neurological above #Community acquired pneumonia ? See respiratory above Hospital management: Disposition: intubated and mechanically ventilated Fluids: none Pressors: Levophed PRN Sedatives: Precedex PRN Diet: NPO, NG tube with suctioning off DVT prophylaxis: heparin SC q8hr GI prophylaxis: pantoprazole 40 mg IV Lines: 2 peripheral IV, TDC CODE STATUS: full code ----- Plan discussed with attending physician Dr. Bardales. Ion Andino MD PGY-1 Internal Medicine
[2024-04-12] MEDS: Aspirin 325 MG TABLET NG (10:26)
[2024-04-12] MEDS: INSULIN GLARGINE (Lantus) 5 UNIT/0.05 ML (PER 5 UNITS) 50 UNIT SC (10:29)
--- NOTE | 2024-04-12 11:04 | XR_ITS ---
Examination: AP chest single view Technique one AP portable supine chest single view Exam date and time: April 12, 2024 at 11:12 AM Comparison April 10, 2024 Indications: Respiratory failure, postintubation Findings: Mild CHF Moderate enlargement left ventricle with prominent vascular congestion and perihilar edema Tracheal tube tip 3.4 cm above ed[place] Right internal jugular dialysis catheter tip SVC satisfactory position Orogastric tube in the stomach Impression: Mild CHF
--- NOTE | 2024-04-12 11:06 | PD.INTPROG ---
Documentation for date of: 04/12/24 Subjective Subjective Interval history: This is a 64yo F admitted to the ICU for acute hypoxic resp failure and AMS. Her mentation has gotten progressively worse over the last several days. She initially presented with ANA LAURA with minimal UOP and is now on HD. She had facial ticks and myoclonic jerks for which she was started on AED with neuro. She underwent an MRI which showed 2 acute CVAs on the R which were small. She had an LP done which showed 4 WBC in the CSF. No acute overnight events, minimal UOP and virtually anuric Critical Care Note Critical care time (min.): 40 Exam Vital Signs Temp Pulse Resp BP Pulse Ox O2 Del Method O2 Flow Rate 99.6 F 103 H 32 H 131/63 H 98 Mechanical Ventilation 13 04/12/24 08:00 04/12/24 10:15 04/12/24 10:15 04/12/24 10:00 04/12/24 10:15 04/12/24 08:00 04/12/24 06:00 FiO2 35 04/12/24 10:15 Narrative Exam Gen- NAD, intubated, GCS 7T, obese HEENT- NC/AT, mucosa hydrated, sclera anicteric, ETT/OGT in place Chest- diminished but clear, HRRR, no increase in WOB Abd- obese, s/nt/bs+ Ext- no edema, pulses palp, withdraws to pain in all extremities except LUE, no mottling, no clubbing Vent AC VC Physical Exam Completion Physical Exam Complete?: Yes 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 Labs 04/13/24 04:42 04/13/24 04:42 Labs: Laboratory Results - last 24 hr 04/11/24 04/11/24 04/12/24 17:04 19:42 04:23 WBC 15.0 H D RBC 2.97 L Hgb 8.3 L Hct 26.5 L MCV 89 MCH 27.9 MCHC 31.3 RDW Std Deviation 50.4 H Plt Count 302 Neut % (Auto) 78 Lymph % (Auto) 5 L [place] % (Auto) 12 Eos % (Auto) 0 Baso % (Auto) 0 Neut # (Auto) 11.7 H Lymph # (Auto) 0.7 L [place] # (Auto) 1.9 H Eos # (Auto) 0.0 Baso # (Auto) 0.1 Immature Gran # (Auto) 0.74 H Absolute Nucleated RBC 0.05 H Immature Gran % 5 H Nucleated RBC % 0 Puncture Site Left Radial ABG pH 7.39 ABG pCO2 40 ABG pO2 74 L ABG HCO3 24 ABG O2 Saturation 93 ABG Base Excess -1 FiO2 45 Sodium 140 Potassium 3.6 3.9 Chloride 101 Carbon Dioxide 23.6 Anion Gap 15 BUN 77 H Creatinine 6.3 H* D Estim Creat Clear Calc 9.0 L eGFR 7 L* BUN/Creatinine Ratio 12 Glucose 387 H Calculated Osmolality 318 H Calcium 9.3 Corrected Calcium 9.7 Phosphorus 2.7 Magnesium 2.6 3.0 H Total Bilirubin 0.2 L AST 18 ALT 14 Alkaline Phosphatase 88 Total Protein 6.8 Albumin 3.5 Globulin 3.3 Albumin/Globulin Ratio 1.1 L Random Vancomycin 17.2 04/12/24 05:23 WBC RBC Hgb Hct MCV MCH MCHC RDW Std Deviation Plt Count Neut % (Auto) Lymph % (Auto) [place] % (Auto) Eos % (Auto) Baso % (Auto) Neut # (Auto) Lymph # (Auto) [place] # (Auto) Eos # (Auto) Baso # (Auto) Immature Gran # (Auto) Absolute Nucleated RBC Immature Gran % Nucleated RBC % Puncture Site Right Brachial ABG pH 7.41 ABG pCO2 39 ABG pO2 147 H D ABG HCO3 25 ABG O2 Saturation 98 ABG Base Excess 0 FiO2 21 Sodium Potassium Chloride Carbon Dioxide Anion Gap BUN Creatinine Estim Creat Clear Calc eGFR BUN/Creatinine Ratio Glucose Calculated Osmolality Calcium Corrected Calcium Phosphorus Magnesium Total Bilirubin AST ALT Alkaline Phosphatase Total Protein Albumin Globulin Albumin/Globulin Ratio Random Vancomycin Assessment & Plan Problem List (1) Altered mental status: Status: Acute (2) ANA LAURA (acute kidney injury): Status: Acute (3) Non-ST elevation (NSTEMI) myocardial infarction: Status: Acute (4) Acute hypoxic respiratory failure: Status: Acute (5) Accelerated hypertension: Status: Acute Additional Plan Additional Plan: In summary this is a 64yo M this is a with 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 on ASA/plavix/statin. cards eval appreciated - echo done Resp Acute hypoxic resp failure- intubated and on MV - improved Fio2 needs - weened down however unable to proceed to SBT due to mental status Aspiration pneumonitis- has completed abx - improvement in CXR REnal ANA LAURA- minimal UOP and on HD GI GI proph- PPI Endo DM- uncontrolled, currently on lantus 40u and lispro q4hr Heme Leukocytosis- likely reactive in nature Anemia- mild, monitor, no active bleeding noted ID PNA- cx NTD and has completed 7 days of abx case d/w ICU team labs, imaging, records reviewed ~40ccmin required for eval, exam, review, intervention, discussion and formulation of POC for this critically ill pt at high risk for further and ongoing decompensation Provider Notation Provider Notation: Although this document has been carefully reviewed, there may still be some phonetic and other typographical errors. These errors are purely grammatical due to imperfections in the software program and should not be construed in any way to compromise the substance of the patient's medical care during this visit. Thank you for the opportunity and privilege in assisting you with this patient's care and management.
[2024-04-12 11:41] LABS: Base Excess 0 (-3-3); HCO3 25 mEq/L (20-26); Inspired Oxygen, FIO2 35 %; O2 Saturation 96 % (91-98); PCO2 40 mmHg (32.0-48.0); PO2 91 mmHg (83-108)
[2024-04-12 11:42] LABS: Allen Test Performed/OK; Puncture Site Left Radial
[2024-04-12] MEDS: INSULIN LISPRO (AdmeLOG) 1 UNIT/0.01 ML UNIT 20 UNIT SC (12:33)
--- NOTE | 2024-04-12 13:23 | ESPR_ITS ---
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 Stroke alert was called, and underwent stroke workup. tPA not given due to out of window. On further interviewing, she reported that she has been taking some penicillin that was brought from [place] of long time ago. She also took Motrin x 2 in last 2 days. She admitted having fever, denied any chills, lightheadedness, chest pain, and any flank pain. Her vitals are fairly stable, hemoglobin 9.1, ABG significant for pH 7.23, pCO2 39, pO2 70. Chemistry panel revealed sodium 133, mild hyperkalemia, bicarb 15.1. BUN 66, creatinine 5.9, EGFR 7. Baseline creatinine is 1.6 with EGFR 56. Triglyceride 493, cholesterol 191, HDL 30 with normal TSH and T4. Hepatitis panel negative. CT head negative for midline shift, acute hemorrhage or mass effect. Pending carotid US, and brain MRI. CXR with mild congestion and superimposed pneumonia. CT abdomen pelvis revealed significant hepatomegaly, moderate bilateral renal parenchymal scarring, 10 mm and 14 mm renal calculi on the left, cystitis pattern, no hydronephrosis or bowel obstruction. PMH: As mentioned above Social history: Denies alcohol, smoking or any illicit drug use Allergies: No known allergies 04/07/2024: The patient was interviewed and examined at the bedside. She was saturating 93% on BiPAP, with FiO2 40% and O2 flow 30 L. Chemistry panel revealed BUN 52, creatinine 4.9, EGFR 9, blood sugar 279, calcium 8.1 and phosphorus 6.0. The patient will get second session of hemodialysis this morning. Urine random creatinine 113, protein 598, sodium 42, potassium 33, chloride 27, urea nitrogen 302. Renal ultrasound significant for moderate bilateral renal parenchymal eschar formation, bilateral renal cortical thinning with no hydronephrosis. 04/08/2024: The patient was examined at the bedside this morning. She reported having difficulty breathing. She was upgraded to ICU. She was saturating 92% on BiPAP. Other vitals were fairly stable. Physical examination was significant for distant breath sounds, and bibasilar crackles. Labs were significant for hemoglobin trending down to 8.1 likely dilutional, BUN 41 and creatinine 4.4, phosphorus 5.8. Ordered ZAINAB screen, ANCA, antiproteinase 3, antimyeloperoxidase and complement level. 04/09/2024: The patient was at the bedside this morning again. She was difficult to arouse and was reacting to painful stimulus. Her vitals were stable saturating 97% on high flow NC with FiO2 80%. The patient underwent hemodialysis yesterday with removal of 3 L fluid and was hypotensive after that. BUN And creatinine improving to 26 and 3.7 respectively. Phosphorus 5.6 less than 10. We will hold off today and proceed with morning. 04/10/24: The patient was agitated overnight and was given 2 mg of IV lorazepam. This morning, she was responding only to painful stimuli, lying on her bed. Her fingerstick blood sugar this morning was 483, hemoglobin 8.9, Chemistry panel significant for potassium 5.0, BUN 53, creatinine 5.6, and blood sugar 596. The patient is planned to undergo hemodialysis this morning. 04/11/2024: The patient was examined at the ICU bedside this morning. She was intubated. She was, saturating 100% on mechanical ventilation, on FiO2 45%, with heart rate 112, and respiratory rate in 30s. CBC was significant for WBC 9.9, hemoglobin 8.1 ABG WNL, sodium 139, potassium 3.4, anion gap 18, BUN 51 and creatinine 4.7 with blood glucose 350, troponin trended up to 1.854. We will hold off on dialysis for today, and proceed with dialysis tomorrow morning. 04/12/2024 patient remains in ICU. On ventilator. Labs, medications and reviewed. Plan of care discussed with daughter at bedside. Will hold dialysis today. Barely responsive. Review of Systems Review of Systems ROS Unobtainable: unobtainable due to medical condition Narrative Review of Systems: on vent Exam Vital Signs Temp Pulse Resp BP Pulse Ox O2 Del Method O2 Flow Rate 38.1 C H 106 H 32 H 133/69 H 97 Mechanical Ventilation 13 04/12/24 21:00 04/12/24 21:00 04/12/24 19:10 04/12/24 21:00 04/12/24 21:00 04/12/24 21:00 04/12/24 06:00 FiO2 35 04/12/24 21:00 Narrative Exam GENERAL APPEARANCE: Patient in icu. orotracheal intubation CARDIOVASCULAR: Heart regular, no murmurs LUNGS/CHEST: Chest clear to auscultation. No rales, rhonchi, wheezing ABDOMEN: Soft, nontender, nondistended. No masses. Normal bowel sounds. EXTREMITIES: 2+ edema in the upper extremities SKIN: Skin exam normal without any rashes MUSCULOSKELETAL: In bed Neurological intubated, sedated Objective Labs 04/14/24 04:57 04/14/24 04:57 Labs: Laboratory Results - last 24 hr 04/12/24 04/12/24 04/12/24 04:23 05:23 11:35 WBC 15.0 H D RBC 2.97 L Hgb 8.3 L Hct 26.5 L MCV 89 MCH 27.9 MCHC 31.3 RDW Std Deviation 50.4 H Plt Count 302 Neut % (Auto) 78 Lymph % (Auto) 5 L [place] % (Auto) 12 Eos % (Auto) 0 Baso % (Auto) 0 Neut # (Auto) 11.7 H Lymph # (Auto) 0.7 L [place] # (Auto) 1.9 H Eos # (Auto) 0.0 Baso # (Auto) 0.1 Immature Gran # (Auto) 0.74 H Absolute Nucleated RBC 0.05 H Immature Gran % 5 H Nucleated RBC % 0 Puncture Site Right Brachial Left Radial ABG pH 7.41 7.40 ABG pCO2 39 40 ABG pO2 147 H D 91 D ABG HCO3 25 25 ABG O2 Saturation 98 96 ABG Base Excess 0 0 FiO2 21 35 Sodium 140 Potassium 3.9 Chloride 101 Carbon Dioxide 23.6 Anion Gap 15 BUN 77 H Creatinine 6.3 H* D Estim Creat Clear Calc 9.0 L eGFR 7 L* BUN/Creatinine Ratio 12 Glucose 387 H Calculated Osmolality 318 H Calcium 9.3 Corrected Calcium 9.7 Phosphorus 2.7 Magnesium 3.0 H Total Bilirubin 0.2 L AST 18 ALT 14 Alkaline Phosphatase 88 Total Protein 6.8 Albumin 3.5 Globulin 3.3 Albumin/Globulin Ratio 1.1 L Random Vancomycin 17.2 ABG Interpretation ABG results: 04/05/24 04/06/24 04/06/24 13:11 05:17 13:37 ABG pH 7.23 L 7.23 L ABG pCO2 39 31 L ABG pO2 54 L* 70 L ABG HCO3 16 L 13 L ABG O2 Saturation 86 L 92 ABG Base Excess -11 L -13 L VBG pH 7.23 L VBG pCO2 34 L VBG pO2 35 VBG Base Excess -13 L 04/06/24 04/07/24 04/08/24 16:56 12:14 14:46 ABG pH 7.42 D 7.39 7.36 ABG pCO2 35 40 44 ABG pO2 69 L 79 L 40 L* D ABG HCO3 23 24 25 ABG O2 Saturation 94 94 71 L ABG Base Excess -2 -1 -1 VBG pH VBG pCO2 VBG pO2 VBG Base Excess 04/08/24 04/08/24 04/10/24 16:20 17:19 09:05 ABG pH 7.34 L 7.35 Cancelled ABG pCO2 46 45 Cancelled ABG pO2 36 L* 113 H D Cancelled ABG HCO3 25 25 Cancelled ABG O2 Saturation 63 L 97 Cancelled ABG Base Excess -1 -1 Cancelled VBG pH VBG pCO2 VBG pO2 VBG Base Excess 04/10/24 04/10/24 04/10/24 09:41 11:45 14:26 ABG pH 7.10 L* D 7.12 L* 7.20 L ABG pCO2 75 H* D 73 H* 58 H D ABG pO2 71 L D 75 L 78 L ABG HCO3 23 24 23 ABG O2 Saturation 89 L 90 L 93 ABG Base Excess -7 L -6 L -5 L VBG pH VBG pCO2 VBG pO2 VBG Base Excess 04/10/24 04/11/24 04/11/24 15:21 05:29 17:04 ABG pH 7.25 L 7.40 D 7.39 ABG pCO2 52 H 40 D 40 ABG pO2 90 93 74 L ABG HCO3 23 25 24 ABG O2 Saturation 95 98 93 ABG Base Excess -5 L 0 -1 VBG pH VBG pCO2 VBG pO2 VBG Base Excess 04/12/24 04/12/24 05:23 11:35 ABG pH 7.41 7.40 ABG pCO2 39 40 ABG pO2 147 H D 91 D ABG HCO3 25 25 ABG O2 Saturation 98 96 ABG Base Excess 0 0 VBG pH VBG pCO2 VBG pO2 VBG Base Excess Assessment & Plan Assessment and plan (1) Altered mental status: Status: Acute (2) ANA LAURA (acute kidney injury): Status: Acute (3) Non-ST elevation (NSTEMI) myocardial infarction: Status: Acute (4) Acute hypoxic respiratory failure: Status: Acute (5) Accelerated hypertension: Status: Acute Additional Assessment & Plan Additional Plan: The patient is a 64-year-old female with significant past medical history of 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 Stroke alert was called, and underwent stroke workup. tPA not given due to out of window. On further interviewing, she reported that she has been taking some penicillin that was brought from [place] of long time ago. She also took Motrin x 2 in last 2 days. She admitted having fever, denied any chills, lightheadedness, chest pain, and any flank pain. Nephrology consultation was done for further management of ANA LAURA in CKD stage IIIa. 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 On admission, creatinine 5.9 and GFR 7. On admission ABG significant for acidemia with pH 7.23, pCO2 39, pO2 70. Chemistry panel revealed sodium 133, mild hyperkalemia, bicarb 15.1. ABG significant for pH 7.42 revealing improvement in acidemia, BUN 52, creatinine 4.9, EGFR 9, calcium 8.1, phosphorus 6.0. Urine electrolytes with creatinine 113, total protein 598, sodium 42 (>40 suggestive of ATN), potassium 33, chloride 27, and urea nitrogen 302. BUN/CR ratio <20 so less likely prerenal. Renal ultrasound significant for moderate bilateral renal parenchymal eschar formation, bilateral renal cortical thinning with no hydronephrosis. -Stop the offending agent, penicillin which is likely cause of possible ATN 04/08/2024: Labs were significant for hemoglobin trending down to 8.1 likely dilutional, BUN 41 and creatinine 4.4, phosphorus 5.8. Ordered ZAINAB screen, ANCA, antiproteinase 3, antimyeloperoxidase and complement level, and we will plan for renal biopsy if ANA LAURA doesn't resolve in a couple of days. -Continue to monitor renal panel -Patient will undergo 3.5 hours hemodialysis session x 1 this morning again, and we will plan for 3 L ultrafiltration goal. -Can consider trying bumex 1-2mg x1 to increase urine output. 04/10/2024: Her fingerstick blood sugar this morning was 483, hemoglobin 8.9, Chemistry panel significant for potassium 5.0, BUN 53, creatinine 5.6, and blood sugar 596. The patient is planned to undergo hemodialysis this morning. 04/12/2024: sodium 139, potassium 3.4, anion gap 18, BUN 51 and creatinine 4.7 with blood glucose 350, troponin trended up to 1.854. We will hold off on dialysis for today, and proceed with dialysis tomorrow morning. #Hypocalcemia, improved 04/05 #Hyperphosphatemia -Improving Secondary to ANA LAURA on CKD -Started on calcium carbonate 600 Mg twice daily -We will get phosphorus level tomorrow morning again after HD as after hemodialysis it significantly improved to 6.0, we will hold on sevelamer. -Continue to monitor renal panel #Hypertensive emergency, resolved #Acute encephalopathy #Stroke rule out #Hx of CVA 2018 #Acute nephrolithiasis #Hx of renal calculi #Acute hypoxemic respiratory failure #Community-acquired pneumonia #GEMMA/OHS on oxygen HS #NSTEMI type II (improving) #HTN, HLD #IDDM type II -Management deferred to ICU team Quality - progress note Quality Measures Quality Measures: VTE prophylaxis Reason for Continued Stay Reason for Continued Stay: further monitoring
--- NOTE | 2024-04-12 17:12 | PD.RESPRO ---
Documentation for date of: 04/12/24 Subjective Subjective Interval history: 04/12: no acute overnight events reported. Pt is seen and examined at bedside in ICU. pt is intubated and on mechanical ventilation. Pt is currently off pressors and off sedation. but still not awake and does not follow commands. current HR is 103 with BP of 144/60. Pts amio drip is running at .5mg and will transition to metoprolol succinate XL through GT, as well as continue aspirin and statin. Pt is currently in sinus tachy. Exam Vital Signs Temp Pulse Resp BP Pulse Ox O2 Del Method O2 Flow Rate 99.0 F 107 H 25 H 139/64 H 97 Mechanical Ventilation 13 04/12/24 12:00 04/12/24 17:00 04/12/24 14:59 04/12/24 17:00 04/12/24 17:00 04/12/24 11:00 04/12/24 06:00 FiO2 35 04/12/24 16:00 Narrative Exam GENERAL: Pt is sedatied and intubated on mechanical ventilation NEURO: unable to asses due to Pt is intubated and mechanical ventilated, does not follow commands HEENT: Atraumatic, Normocephalic. mucous membranes moist. Eyes open, symmetrical, & clear HEART: Normal Heart Sounds LUNGS: Clear to auscultation with no wheezing or crackles. ABDOMEN: soft, non-distended, non-tender, bowel sounds heard, no guarding or rebound tenderness SKIN: No Rash or ecchymoses EXTREMITIES: No edema, tenderness, able to move all 4 extremities, pedal pulses palpated Objective Labs 04/12/24 04:23 04/12/24 04:23 Labs: Laboratory Results - last 24 hr 04/11/24 04/11/24 04/12/24 17:04 19:42 04:23 WBC 15.0 H D RBC 2.97 L Hgb 8.3 L Hct 26.5 L MCV 89 MCH 27.9 MCHC 31.3 RDW Std Deviation 50.4 H Plt Count 302 Neut % (Auto) 78 Lymph % (Auto) 5 L [place] % (Auto) 12 Eos % (Auto) 0 Baso % (Auto) 0 Neut # (Auto) 11.7 H Lymph # (Auto) 0.7 L [place] # (Auto) 1.9 H Eos # (Auto) 0.0 Baso # (Auto) 0.1 Immature Gran # (Auto) 0.74 H Absolute Nucleated RBC 0.05 H Immature Gran % 5 H Nucleated RBC % 0 Puncture Site Left Radial ABG pH 7.39 ABG pCO2 40 ABG pO2 74 L ABG HCO3 24 ABG O2 Saturation 93 ABG Base Excess -1 FiO2 45 Sodium 140 Potassium 3.6 3.9 Chloride 101 Carbon Dioxide 23.6 Anion Gap 15 BUN 77 H Creatinine 6.3 H* D Estim Creat Clear Calc 9.0 L eGFR 7 L* BUN/Creatinine Ratio 12 Glucose 387 H Calculated Osmolality 318 H Calcium 9.3 Corrected Calcium 9.7 Phosphorus 2.7 Magnesium 2.6 3.0 H Total Bilirubin 0.2 L AST 18 ALT 14 Alkaline Phosphatase 88 Total Protein 6.8 Albumin 3.5 Globulin 3.3 Albumin/Globulin Ratio 1.1 L Random Vancomycin 17.2 04/12/24 04/12/24 05:23 11:35 WBC RBC Hgb Hct MCV MCH MCHC RDW Std Deviation Plt Count Neut % (Auto) Lymph % (Auto) [place] % (Auto) Eos % (Auto) Baso % (Auto) Neut # (Auto) Lymph # (Auto) [place] # (Auto) Eos # (Auto) Baso # (Auto) Immature Gran # (Auto) Absolute Nucleated RBC Immature Gran % Nucleated RBC % Puncture Site Right Brachial Left Radial ABG pH 7.41 7.40 ABG pCO2 39 40 ABG pO2 147 H D 91 D ABG HCO3 25 25 ABG O2 Saturation 98 96 ABG Base Excess 0 0 FiO2 21 35 Sodium Potassium Chloride Carbon Dioxide Anion Gap BUN Creatinine Estim Creat Clear Calc eGFR BUN/Creatinine Ratio Glucose Calculated Osmolality Calcium Corrected Calcium Phosphorus Magnesium Total Bilirubin AST ALT Alkaline Phosphatase Total Protein Albumin Globulin Albumin/Globulin Ratio Random Vancomycin ABG Interpretation ABG results: 04/05/24 04/06/24 04/06/24 13:11 05:17 13:37 ABG pH 7.23 L 7.23 L ABG pCO2 39 31 L ABG pO2 54 L* 70 L ABG HCO3 16 L 13 L ABG O2 Saturation 86 L 92 ABG Base Excess -11 L -13 L VBG pH 7.23 L VBG pCO2 34 L VBG pO2 35 VBG Base Excess -13 L 04/06/24 04/07/24 04/08/24 16:56 12:14 14:46 ABG pH 7.42 D 7.39 7.36 ABG pCO2 35 40 44 ABG pO2 69 L 79 L 40 L* D ABG HCO3 23 24 25 ABG O2 Saturation 94 94 71 L ABG Base Excess -2 -1 -1 VBG pH VBG pCO2 VBG pO2 VBG Base Excess 04/08/24 04/08/24 04/10/24 16:20 17:19 09:05 ABG pH 7.34 L 7.35 Cancelled ABG pCO2 46 45 Cancelled ABG pO2 36 L* 113 H D Cancelled ABG HCO3 25 25 Cancelled ABG O2 Saturation 63 L 97 Cancelled ABG Base Excess -1 -1 Cancelled VBG pH VBG pCO2 VBG pO2 VBG Base Excess 04/10/24 04/10/24 04/10/24 09:41 11:45 14:26 ABG pH 7.10 L* D 7.12 L* 7.20 L ABG pCO2 75 H* D 73 H* 58 H D ABG pO2 71 L D 75 L 78 L ABG HCO3 23 24 23 ABG O2 Saturation 89 L 90 L 93 ABG Base Excess -7 L -6 L -5 L VBG pH VBG pCO2 VBG pO2 VBG Base Excess 04/10/24 04/11/24 04/11/24 15:21 05:29 17:04 ABG pH 7.25 L 7.40 D 7.39 ABG pCO2 52 H 40 D 40 ABG pO2 90 93 74 L ABG HCO3 23 25 24 ABG O2 Saturation 95 98 93 ABG Base Excess -5 L 0 -1 VBG pH VBG pCO2 VBG pO2 VBG Base Excess 04/12/24 04/12/24 05:23 11:35 ABG pH 7.41 7.40 ABG pCO2 39 40 ABG pO2 147 H D 91 D ABG HCO3 25 25 ABG O2 Saturation 98 96 ABG Base Excess 0 0 VBG pH VBG pCO2 VBG pO2 VBG Base Excess Quality Measures Quality Measures VTE prophylaxis Advance care planning discussed with:: patient Assessment & Plan Assessment Current Active Medications: Generic Name Dose Route Start Last Admin Trade Name Freq PRN Reason Stop Dose Admin Acetaminophen 650 mg 04/05/24 23:06 Acetaminophen 325 Mg Tablet PO 05/05/24 23:05 Q6H PRN PAIN SCALE 1-3 (mild Acetaminophen 650 mg 02/02/25 23:06 Acetaminophen 325 Mg Tablet PO 05/05/24 23:05 Q6H PRN Fever >100 Albuterol/Ipratropium 3 ml 04/10/24 11:45 04/12/24 14:58 Albuterol/Ipratropium (Duoneb) Rt Princess 3 Ml Nebu INH 05/10/24 11:44 3 ml Q4HRRT DELMY Administration Aspirin 325 mg 04/12/24 10:15 04/12/24 10:26 Aspirin 325 Mg Tablet NG 05/12/24 10:14 325 mg QDAY DELMY Administration Atorvastatin Calcium 80 mg 04/11/24 21:00 04/11/24 21:39 Atorvastatin Calcium 20 Mg Tablet NG 05/11/24 20:59 80 mg HS DELMY Administration Calcium Carbonate 600 mg 04/06/24 14:45 04/12/24 09:54 Calcium Carbonate 600 Mg Tablet PO 05/06/24 14:44 600 mg BID DELMY Administration Clopidogrel Bisulfate 75 mg 04/12/24 09:00 04/12/24 10:10 Clopidogrel Bisulfate 75 Mg Tablet NG 05/12/24 08:59 75 mg QDAY DELMY Administration Dextrose 25 ml 04/07/24 10:52 Dextrose 50%-Water Inj 50 Ml Syringe IV 05/07/24 10:51 Q15MIN PRN BG 50-70 responsive npo pt Dextrose 50 ml 04/07/24 10:52 Dextrose 50%-Water Inj 50 Ml Syringe IV 05/07/24 10:51 Q15MIN PRN BG <50 OR BG <70 & pt unresponsive Glucagon 1 mg 04/07/24 10:52 Glucagon Inj 1 Mg Vial IM Q15MIN PRN BG <70, and no IV access Heparin Sodium (Porcine) 3,300 unit 04/06/24 15:03 04/10/24 20:13 Heparin Sod Inj 1000 Unit/Ml Vial 10 Ml INDWELLCAT 04/20/24 15:02 3,300 unit PRN PRN Administration DIALYSIS Heparin Sodium (Porcine) 5,000 unit 04/09/24 08:00 04/12/24 14:14 Heparin Sod Inj 5000 Unit/Ml Vial SC 04/23/24 07:59 5,000 unit Q8HR DELMY Administration Albumin Human 25 gm in 100 mls @ 100 mls/min 04/06/24 08:27 04/08/24 10:03 Albuminar-25 Ivpb IV 100 mls/min PRN PRN Administration DIALYSIS Dexmedetomidine/Sodium Chloride 200 mcg in 50 mls @ 5.31 mls/hr 04/08/24 09:17 04/11/24 05:00 Precedex Ivpb IV 05/08/24 09:16 0 mcg/kg/hr .Q9H25M PRN 0 mls/hr Per PROTOCOL Titration Protocol 0.2 MCG/KG/HR Norepinephrine/Dextrose 8 mg in 250 mls @ 9.956 mls/hr 04/08/24 09:53 04/11/24 02:35 Levophed In D5w 8mg/250ml IV 05/08/24 09:52 0 mcg/kg/min .Q24H PRN 0 mls/hr PER PROTOCOL Titration Protocol 0.05 MCG/KG/MIN Methylprednisolone Sodium 104 mls @ 104 mls/hr 04/09/24 12:00 04/10/24 13:27 Succinate 250 mg/ Sodium IV 04/16/24 11:59 Not Given Chloride Q6HR DELMY Fentanyl Citrate 2,500 mcg in 250 mls @ 2.5 mls/hr 04/10/24 09:47 Sublimaze Inj 2,500 Mcg/250 Ml Bag IV 04/15/24 09:46 .Q24H PRN PER PROTOCOL Protocol 25 MCG/HR Propofol 1,000 mg in 100 mls @ 2.955 mls/hr 04/10/24 09:50 Diprivan Ivpb IV 05/10/24 09:49 .Q24H PRN PER PROTOCOL Protocol 5 MCG/KG/MIN Valproic Acid 750 mg/ Sodium 57.5 mls @ 55 mls/hr 04/11/24 14:00 04/12/24 14:08 Chloride IV 05/08/24 21:59 55 mls/hr Q8HR DELMY Administration Amiodarone HCl/Dextrose 360 mg in 200 mls @ 16.667 mls/hr 04/12/24 01:48 04/12/24 14:12 Nexterone Ivpb IV 04/13/24 01:47 16.667 mls/hr .Q12H DELMY Administration Phenylephrine HCl 40 mg/ 100 mls @ 1.422 mls/hr 04/11/24 20:11 Sodium Chloride IV 05/11/24 20:10 .Q24H PRN Per Cardiogenic Protocol Protocol 0.1 MCG/KG/MIN Insulin Glargine 50 unit 04/12/24 10:30 04/12/24 10:29 Insulin Glargine (Lantus) 5 Unit/0.05 Ml (Per 5 Units) SC 05/12/24 10:29 50 unit QDAY DELMY Administration Insulin Human Lispro 0 unit 04/10/24 14:00 04/12/24 14:18 Insulin Lispro (Admelog) 1 Unit/0.01 Ml Unit SC 05/10/24 13:59 6 unit Q4HR EDLMY Administration Protocol Labetalol HCl 10 mg 04/05/24 23:55 Labetalol Inj 5 Mg/Ml Vial 20 Ml IVP 05/05/24 23:54 X1 PRN BP >220/110 Lidocaine HCl 9 ml 04/06/24 11:00 Lidocaine Inj Pf 1% 5 Ml Vial INFL X1 PRN LOCAL ANESTHESIA Protocol Ondansetron HCl 4 mg 04/05/24 23:06 Ondansetron Inj 2 Mg/Ml Inj 2 Ml IV 05/05/24 23:05 Q6H PRN NAUSEA OR VOMITING Protocol Pantoprazole Sodium 40 mg 04/06/24 09:00 04/12/24 09:53 Pantoprazole Inj 40 Mg Vial IVP 05/06/24 08:59 40 mg QDAY DELMY Administration Pharmacy Consult 1 each 04/09/24 08:54 Pharmacy Renal Dose Adjustment 1 Ea XX 05/08/24 08:59 QDAY PRN protocol Plan Ms. 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 Patient presented to the emergency department 04/05/24 due to altered mental status and slurred speech, stroke alert was called, MRI/MRA of the brain showed 20 mm of acute infarct of the anterior right brainstem at the pontine level and 14 mm acute infarct of the right basal ganglia. Patient became increasingly altered had increased bleeding higher oxygen requirements patient was switched from high flow to BiPAP and unable to saturate decision was made to upgrade the patient to to the ICU on 04/07/24 an recent acute CVA and the possibility of hemorrhagic conversion and also d patient was unable to protect her airway and was intubated on 04/10/2024 cardiology was consulted for elevated troponins. # Acute CVA # Acute encephalopathy #Acute respiratory failure- Pt is unable to protect her airway therefore intubated on 04/10 --Pt initially presented with altered mental status and high suspicion of meningitis. Pt patient was initially on IV antibiotics with cefepime and vancomycin which was DC'd on 04/11 due to negative blood cultures as well as CSF fluid cultures had no growth in 3 days however the Gram stain was positive for GPC. -Although CT of the head is negative , the MRI/MRA of the brain showed 12 mm acute infarct of the anterior right brainstem (pontine level), 14 mm acute infarct of right basal ganglia. -Patient also underwent EEG which showed diffuse slowing, suggestive of encephalopathy of metabolic versus degenerative versus vascular origin without epileptic waveforms. Per neurorecommendations valproate was started. -For acute CVA patient is on aspirin 325 mg, clopidogrel 75 mg and atorvastatin 80 mg -Neurology is following #elevated troponins, NSTEMI type ll On admissions patient's troponin were 1.319-> 1.271- On 04/10 troponins trend is 0.0.641-> 0.983-> 1.814-> 1.854 -Unable to assess if patient has chest pain or not due to patient was intubated initially sedated however even though currently patient is off sedation she is still obtunded and unable to follow commands or wake up. -Elevated troponins are likely secondary to NSTEMI type II in the setting of demand ischemia due to patient's acute illness requiring intubation and stroke. -Echo completed on 04/08/2024 findings include:Negative bubble study Normal LV size and wall thickness. Estimated EF 55-60 %. RV is normal in size and systolic function. Trace MR. -Repeat EKG does not evident of ischemic DE. Therefore urgent cardiac catheterization is not needed at this time. When patient is improved from acute CVA then further workup and history will be repeated Recommendations include to continue aspirin, statin, and beta-vero if blood pressure is permissible -Patient currently does not require heparin drip due to CVA and blood found during bronchoscopy -No further troponin trend is recommended New onset A-fib with RVR -On 04/11 patient was found to be in A-fib with RVR with heart rate up to 170, blood pressure at the time was 110/70 -Patient was started on amiodarone drip along with bolus amiodarone was given as well as metoprolol 2.5 Mg IV x 1 -[id number] score is 6, however with hold anticoagulation at this time due to findings of bronchoscopically and acute CVA. 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 Sheridan is following catheter placed on 04/06/2024 #Nephrolithiasis -ultrasound showed 10 mm and 14 mm stones on the left side without hydronephrosis. - recommended outpatient workup #primary hypertension #Hyperlipidemia -Due to stroke patient was allowed permissive hypertension with the parameters in place labetalol 5 mg is as needed for systolic blood pressure above 180 -current BP is stable 133/69 -For hyperlipidemia patient is on statin #type 2 Diabetes mellitus Hemoglobin A1c is 5.9 -Patient is home insulin is glargine 60 units -Patient is started on insulin sliding scale and hypoglycemia protocol is in place Assessment and plan discussed with my attending physician Dr. Huber Lomax (PGY-1)- Internal medicine resident There is a high probability of sudden, clinically significant or life threatening deterioration in the patient condition which required the highest level of physician preparedness to intervene urgently. I have personally spent 35 minutes of critical care time, exclusive of time spent on any procedures, in evaluation and management of this critically ill patient. Attending Provider Attestation/Addendum I have personally seen and examined the patient separately on the above date of service and discussed the plan of care with the resident. I reviewed the resident Dr. Maico Lomax consultation progress note and agree with the resident findings and plan in the note above and have also edited the documentation to reflect my findings and plan. Troponins peaked at 1.85. Troponins elevation mostly secondary to NSTEMI type II in the setting of supply/demand mismatch as noted above with a history of stroke., New onset end-stage renal disease on hemodialysis and acute hypoxic respiratory failure. EKG showed no regional wall motion abnormalities and EF was normal at 55 to 60%. Patient did have atrial fibrillation with RVR on 04/11/2024 for which amiodarone drip was started as the patient was hypotensive. Patient now converted to sinus tachycardia and to complete the amiodarone drip as per protocol for 1 day. Patient should be started on metoprolol XL 50 mg once daily as patient blood pressure today is better at 130-140 mmHg. No heparin drip for anticoagulation NSTEMI or the atrial fibrillation as the patient has a recent acute stroke and also blood was found during the bronchoscopy. Primary team to discuss with neurology regarding the initiation of anticoagulation and can start Eliquis if there is no current indications for anticoagulation. Chad Ngo M.D. Interventional Cardiology
[2024-04-12] MEDS: METOPROLOL SUCCINATE XL 25 MG TABCR 50 MG GT (20:15)
[2024-04-12] MEDS: ATORVASTATIN CALCIUM 20 MG TABLET 80 MG NG (20:21)
--- NOTE | 2024-04-12 23:54 | VVPN_ITS ---
Telemedicine visit statement This visit was conducted with the use of phone was obtained on 04/12/24 at 2354. Documentation for date of: 04/12/24 Subjective Subjective Interval history: Patient is in ICU, continue to remain intubated and on mechanical ventilatory support no issues or concerns overnight Virtual exam Vital Signs Temp Pulse Resp BP Pulse Ox O2 Del Method O2 Flow Rate 99.3 F 94 32 H 160/74 H 98 Mechanical Ventilation 13 04/12/24 22:00 04/12/24 22:07 04/12/24 19:10 04/12/24 22:07 04/12/24 22:07 04/12/24 21:00 04/12/24 06:00 FiO2 35 04/12/24 21:00 Objective Labs 04/12/24 04:23 04/12/24 04:23 Labs: Laboratory Results - last 24 hr 04/12/24 04/12/24 04/12/24 04:23 05:23 11:35 WBC 15.0 H D RBC 2.97 L Hgb 8.3 L Hct 26.5 L MCV 89 MCH 27.9 MCHC 31.3 RDW Std Deviation 50.4 H Plt Count 302 Neut % (Auto) 78 Lymph % (Auto) 5 L [place] % (Auto) 12 Eos % (Auto) 0 Baso % (Auto) 0 Neut # (Auto) 11.7 H Lymph # (Auto) 0.7 L [place] # (Auto) 1.9 H Eos # (Auto) 0.0 Baso # (Auto) 0.1 Immature Gran # (Auto) 0.74 H Absolute Nucleated RBC 0.05 H Immature Gran % 5 H Nucleated RBC % 0 Puncture Site Right Brachial Left Radial ABG pH 7.41 7.40 ABG pCO2 39 40 ABG pO2 147 H D 91 D ABG HCO3 25 25 ABG O2 Saturation 98 96 ABG Base Excess 0 0 FiO2 21 35 Sodium 140 Potassium 3.9 Chloride 101 Carbon Dioxide 23.6 Anion Gap 15 BUN 77 H Creatinine 6.3 H* D Estim Creat Clear Calc 9.0 L eGFR 7 L* BUN/Creatinine Ratio 12 Glucose 387 H Calculated Osmolality 318 H Calcium 9.3 Corrected Calcium 9.7 Phosphorus 2.7 Magnesium 3.0 H Total Bilirubin 0.2 L AST 18 ALT 14 Alkaline Phosphatase 88 Total Protein 6.8 Albumin 3.5 Globulin 3.3 Albumin/Globulin Ratio 1.1 L Random Vancomycin 17.2 ABG Interpretation ABG results: 04/05/24 04/06/24 04/06/24 13:11 05:17 13:37 ABG pH 7.23 L 7.23 L ABG pCO2 39 31 L ABG pO2 54 L* 70 L ABG HCO3 16 L 13 L ABG O2 Saturation 86 L 92 ABG Base Excess -11 L -13 L VBG pH 7.23 L VBG pCO2 34 L VBG pO2 35 VBG Base Excess -13 L 04/06/24 04/07/24 04/08/24 16:56 12:14 14:46 ABG pH 7.42 D 7.39 7.36 ABG pCO2 35 40 44 ABG pO2 69 L 79 L 40 L* D ABG HCO3 23 24 25 ABG O2 Saturation 94 94 71 L ABG Base Excess -2 -1 -1 VBG pH VBG pCO2 VBG pO2 VBG Base Excess 04/08/24 04/08/24 04/10/24 16:20 17:19 09:05 ABG pH 7.34 L 7.35 Cancelled ABG pCO2 46 45 Cancelled ABG pO2 36 L* 113 H D Cancelled ABG HCO3 25 25 Cancelled ABG O2 Saturation 63 L 97 Cancelled ABG Base Excess -1 -1 Cancelled VBG pH VBG pCO2 VBG pO2 VBG Base Excess 04/10/24 04/10/24 04/10/24 09:41 11:45 14:26 ABG pH 7.10 L* D 7.12 L* 7.20 L ABG pCO2 75 H* D 73 H* 58 H D ABG pO2 71 L D 75 L 78 L ABG HCO3 23 24 23 ABG O2 Saturation 89 L 90 L 93 ABG Base Excess -7 L -6 L -5 L VBG pH VBG pCO2 VBG pO2 VBG Base Excess 04/10/24 04/11/24 04/11/24 15:21 05:29 17:04 ABG pH 7.25 L 7.40 D 7.39 ABG pCO2 52 H 40 D 40 ABG pO2 90 93 74 L ABG HCO3 23 25 24 ABG O2 Saturation 95 98 93 ABG Base Excess -5 L 0 -1 VBG pH VBG pCO2 VBG pO2 VBG Base Excess 04/12/24 04/12/24 05:23 11:35 ABG pH 7.41 7.40 ABG pCO2 39 40 ABG pO2 147 H D 91 D ABG HCO3 25 25 ABG O2 Saturation 98 96 ABG Base Excess 0 0 VBG pH VBG pCO2 VBG pO2 VBG Base Excess Assessment & Plan Assessment Altered mental status: Status: Acute Assessment and plan: CSF analysis: Insignificant Will hold off on steroids as blood sugar went up really high. as high as 600 mg , Hold off on the IVIG for 1 more day and then decide about which immunological therapy to give , continue with the Depakote for controlling myoclonic jerks in the face MRI brain showed acute infarction involving the pontine area and right basal ganglia. Continue with aspirin and Plavix 75 mg for prophylaxis along with statin. Noted significant intracranial stenosis in the MRA even though images are degraded from motion. (2) ANA LAURA (acute kidney injury): Status: Acute Assessment and plan: Going to be on dialysis (3) Non-ST elevation (NSTEMI) myocardial infarction: Status: Acute Assessment and plan: cardiology consulted, recommended aspirin and statin (4) Acute hypoxic respiratory failure: Status: Acute Assessment and plan: Got intubated and on mechanical ventilatory support (5) Accelerated hypertension: Status: Acute Assessment and plan: Blood pressure before dialysis today was in the 200s Dropped following dialysis to the extent of needing Levophed
[2024-04-13] VITALS (150 sets, daily range): BP systolic 67–181; BP diastolic 45–98; PULSE 78–109; RESP 0–53; TEMP 36.1–37.8; O2SAT 89–100; BMI 40.8
--- NOTE | 2024-04-13 | XR_ITS ---
Examination: MRI brain without intravenous contrast. Date and time of exam: April 13, 2024 1217 hours INDICATIONS: Slurred speech altered mental status beginning 4:00 PM April 05, 2024, brain MRI of April 10, 2024 12 mm acute infarct anterior right brainstem pontine level 14 mm acute infarct right basal ganglia Technique: Multiple axial and sagittal images of the brain obtained. Siemens high-resolution 1.5 Damari short bore scanners utilized. Sagittal sections, T1-weighted, TR 500, TE 14, are performed. Axial sections proton-density and T2-weighted have been obtained. Inversion recovery axial images, TR 9, 260, TE 111, TI 2500. Diffusion weighted images, axial sections, TR 4800, TE 128, B value 1000 Axial sections, ADC map, TR 4800, TE 128 Findings: Enlargement of the sella turcica is not present. The optic chiasm and infundibular are not remarkable. Prepontine and interpeduncular cisterns are not enlarged. There is no localized enlargement of the medulla or christine. Fourth ventricle and cerebellar tonsils appear normal in position. No subacute area of hemorrhage density is seen. Mass in the cerebellopontine angle region is not evident. Globes symmetrical. Orbital musculature including medial lateral rectus muscles do not exhibit abnormality. Diffusion-weighted images demonstrate focus restricted diffusion right brainstem pontine level. Increased white matter signal mild Mass effect upon the ventricular system is not identified. Impression: Acute infarct right brainstem pontine level again noted No new infarcts
[2024-04-13] MEDS: INSULIN LISPRO (AdmeLOG) 1 UNIT/0.01 ML UNIT SC ×6 (02:17→21:51)
[2024-04-13] MEDS: ALBUTEROL/IPRATROPIUM (Duoneb) RT SOL 3 ML NEBU INH ×6 (03:30→22:30)
[2024-04-13] MEDS: VALPROATE SOD INJ 750 MG in SODIUM CHLORIDE 0.9% 50 ML 55 MG IV ×3 (05:20→21:54)
[2024-04-13 06:00] LABS: Basophils % (Auto) 0 % (0-2.5); Eosinophils % (Auto) 0 % (0-10); Immature Granulocytes % (Auto) 10 % (0-0); Immature Granulocytes Auto 1.83 Thou/mm3 (0.00-0.00); Lymphocytes # (Auto) 0.7 Thou/mm3 (1.0-4.8); Lymphocytes % (Auto) 4 % (10-50); Mean Corpuscular HGB Conc 31.1 g/dl (31.0-37.0); Mean Corpuscular Volume 90 fL (80-100); Monocytes # (Auto) 2.3 Thou/mm3 (0.0-0.8); Monocytes % (Auto) 13 % (0-12); Neutrophils # (Auto) 12.9 Thou/mm3 (1.8-7.7); Neutrophils % (Auto) 73 % (37-80); Nucleated Red Blood Cell # 0.14 Thou/mm3 (0.00-0.00); Nucleated Red Blood Cell % 1 /100 WBC (0); Platelet Count 302 Thou/mm3 (140-440); RDW Standard Deviation 51.3 fL (36.4-46.3); White Blood Count 17.8 Thou/mm3 (3.6-11.0)
[2024-04-13 06:06] LABS: Hemoglobin 8.4 g/dL (12.0-16.0)
[2024-04-13] MEDS: HEPARIN SOD INJ 5000 UNIT/ML VIAL SC ×3 (06:06→21:51)
[2024-04-13 06:56] LABS: VDRL, CSF Qual* NON-REACTIVE
[2024-04-13 06:56] LABS: Valporic Acid (Depak)* 36.9 mg/L (50.0-100.0)
[2024-04-13 08:02] LABS: Alanine Aminotransferase 11 U/L (10-49); Albumin, Serum 3.4 gm/dL (3.4-4.8); Alkaline Phosphatase 87 U/L (46-116); Anion Gap 18 (7-16); Aspartate Amino Transferase 14 U/L (0-34); BUN/Creatinine Ratio 14 Ratio (12-20); Bilirubin,Total 0.2 mg/dL (0.3-1.2); Calcium 9.5 mg/dL (8.3-10.6); Carbon Dioxide 21.3 mMol/L (20.0-31.0); Chloride 102 mMol/L (98-107); Estimated Creatinine Clearance 8.1 mL/min (>60); Globulin 3.3 gm/dL (2.3-3.5); Glucose 346 mg/dL (74-106); Magnesium 3.1 mg/dL (1.6-2.6); Osmolality,Calculated 326 (275-295); Phosphorous 5.1 mg/dL (2.4-5.1); Potassium 3.9 mMol/L (3.4-5.1); Sodium 141 mMol/L (136-145); Total Protein 6.7 gm/dL (5.7-8.2); eGFR 6 See Note
[2024-04-13 08:03] LABS: Blood Urea Nitrogen 101 mg/dL (9-23)
--- NOTE | 2024-04-13 08:19 | PC.NURSE ---
BP low, informed [employer] that Levoph needs to be started. Albumin 25% given IVP.
[2024-04-13] MEDS: ALBUMIN HUMAN 25% IVPB 25 GM/100 ML BTL IV (08:21)
[2024-04-13] MEDS: Norepinephrine/D5W 8mg/250ml 8 MG/250 ML BAG 9.956 MG IV (08:21)
--- NOTE | 2024-04-13 08:23 | PC.NURSE ---
Levophed being started. UF off due to low BP.
--- NOTE | 2024-04-13 08:31 | PD.INTPROG ---
Documentation for date of: 04/13/24 Subjective Subjective Interval history: This is a 64yo F admitted to the ICU for acute hypoxic resp failure and AMS. Her mentation has gotten progressively worse over the last several days. She initially presented with ANA LAURA with minimal UOP and is now on HD. She had facial ticks and myoclonic jerks for which she was started on AED with neuro. She underwent an MRI which showed 2 acute CVAs on the R which were small. She had an LP done which showed 4 WBC in the CSF. No acute overnight events, minimal UOP and virtually anuric 04/13- no acute overnight events, improved glucose, today opens eyes to voice though still no tracking, minimal UOP Critical Care Note Critical care time (min.): 42 Exam Vital Signs Temp Pulse Resp BP Pulse Ox O2 Del Method O2 Flow Rate 98.4 F 85 27 H 67/45 L 96 Mechanical Ventilation 13 04/13/24 07:22 04/13/24 08:22 04/13/24 07:22 04/13/24 08:22 04/13/24 07:22 04/13/24 06:01 04/12/24 06:00 FiO2 35 04/13/24 07:22 Narrative Exam Gen- NAD, intubated, not on sedation, GCS 8T, obese HEENT- NC/AT, mucosa hydrated, sclera anicteric, roving eye movements, ETT/OGT in place Chest- LCTAB, HRRR, no increase in WOB Abd- s/nt/bs+ Ext- minimal edema, pulses palp, no clubbing, no mottling, withdraws to pain in all extremities except LUE Physical Exam Completion Physical Exam Complete?: Yes Objective - [employer] Labs 04/13/24 04:42 04/13/24 04:42 Labs: Laboratory Results - last 24 hr 04/08/24 04/08/24 04/12/24 07:10 18:00 11:35 WBC RBC Hgb Hct MCV MCH MCHC RDW Std Deviation Plt Count Neut % (Auto) Lymph % (Auto) [place] % (Auto) Eos % (Auto) Baso % (Auto) Neut # (Auto) Lymph # (Auto) [place] # (Auto) Eos # (Auto) Baso # (Auto) Immature Gran # (Auto) Absolute Nucleated RBC Immature Gran % Nucleated RBC % Puncture Site Left Radial ABG pH 7.40 ABG pCO2 40 ABG pO2 91 D ABG HCO3 25 ABG O2 Saturation 96 ABG Base Excess 0 FiO2 35 Sodium Potassium Chloride Carbon Dioxide Anion Gap BUN Creatinine Estim Creat Clear Calc eGFR BUN/Creatinine Ratio Glucose Calculated Osmolality Calcium Corrected Calcium Phosphorus Magnesium Total Bilirubin AST ALT Alkaline Phosphatase Total Protein Albumin Globulin Albumin/Globulin Ratio CSF VDRL NON-REACTIVE Valproic Acid 36.9 L 04/13/24 04:42 WBC 17.8 H RBC 3.00 L Hgb 8.4 L Hct 27.0 L MCV 90 MCH 28.0 MCHC 31.1 RDW Std Deviation 51.3 H Plt Count 302 Neut % (Auto) 73 Lymph % (Auto) 4 L [place] % (Auto) 13 H Eos % (Auto) 0 Baso % (Auto) 0 Neut # (Auto) 12.9 H Lymph # (Auto) 0.7 L [place] # (Auto) 2.3 H Eos # (Auto) 0.0 Baso # (Auto) 0.0 Immature Gran # (Auto) 1.83 H Absolute Nucleated RBC 0.14 H Immature Gran % 10 H Nucleated RBC % 1 H Puncture Site ABG pH ABG pCO2 ABG pO2 ABG HCO3 ABG O2 Saturation ABG Base Excess FiO2 Sodium 141 Potassium 3.9 Chloride 102 Carbon Dioxide 21.3 Anion Gap 18 H BUN 101 H* Creatinine 7.0 H* D Estim Creat Clear Calc 8.1 L eGFR 6 L* BUN/Creatinine Ratio 14 Glucose 346 H Calculated Osmolality 326 H Calcium 9.5 Corrected Calcium 10.0 Phosphorus 5.1 Magnesium 3.1 H Total Bilirubin 0.2 L AST 14 ALT 11 Alkaline Phosphatase 87 Total Protein 6.7 Albumin 3.4 Globulin 3.3 Albumin/Globulin Ratio 1.0 L CSF VDRL Valproic Acid Assessment & Plan Problem List (1) Altered mental status: Status: Acute (2) ANA LAURA (acute kidney injury): Status: Acute (3) Non-ST elevation (NSTEMI) myocardial infarction: Status: Acute (4) Acute hypoxic respiratory failure: Status: Acute (5) Accelerated hypertension: Status: Acute Additional Plan Additional Plan: In summary this is a 64yo M this is a with acute hypoxic resp failure a/p [employer] Encephalopathy- GCS of 8T - per neuro suspicion for autoimmune encephalitis -> for IVIG on saturday, attempted steroids but only lasted 1 day - today opens eyes to verbal - CSF studies still pending - on Valproate for abnl musc movements though no seizure identified on EEG CVA- noted on MRI, carotid doppler without significant stenosis, on ASA, seen by neuro CV Tropinemia- unclear type 1 v type 2 however due to recent CVA not a candidate for heparin gtt. on ASA/plavix/statin. cards eval appreciated - echo done Resp Acute hypoxic resp failure- intubated and on MV - improved Fio2 needs - weened down however unable to proceed to SBT due to mental status - CXR improved Aspiration pneumonitis- has completed abx - improvement in CXR REnal ANA LAURA- minimal UOP and on HD - followed by nephrology - serologies for ZAINAB, ANCA and C3/C4 pending GI GI proph- PPI Endo DM- uncontrolled, currently on lantus 40u and lispro q4hr - slow improvement Heme Leukocytosis- cont to trend up - L shift with immature granulocytes - check cx and start meropenem Anemia- mild, monitor, no active bleeding noted ID PNA- cx NTD and has completed 7 days of abx case d/w ICU team d/w nephrology labs, imaging, records reviewed ~42ccmin required for eval, exam, review, intervention, discussion and formulation of POC for this critically ill pt at high risk for further and ongoing decompensation Provider Notation Provider Notation: Although this document has been carefully reviewed, there may still be some phonetic and other typographical errors. These errors are purely grammatical due to imperfections in the software program and should not be construed in any way to compromise the substance of the patient's medical care during this visit. Thank you for the opportunity and privilege in assisting you with this patient's care and management.
--- NOTE | 2024-04-13 08:34 | PC.NURSE ---
UF restarted with good BP. Goal still 3 L, UF increased due to 100 cc added to goal to cover albumin given earlier. Time also increased to keep UF low, 10 minutes.
[2024-04-13] MEDS: CALCIUM CARBONATE 600 MG TABLET PO ×2 (08:49→21:50)
[2024-04-13] MEDS: INSULIN GLARGINE (Lantus) 5 UNIT/0.05 ML (PER 5 UNITS) 50 UNIT SC (08:50)
[2024-04-13] MEDS: PANTOPRAZOLE INJ 40 MG VIAL IVP (08:50)
--- NOTE | 2024-04-13 09:20 | PC.NURSE ---
Informed PHYS ASST that Levophed needs to be increased. Increase with MAP of 60.
--- NOTE | 2024-04-13 10:05 | PC.NURSE ---
CONNIE Schmid increased Levophed x2.
--- NOTE | 2024-04-13 10:06 | PD.RESPRO ---
Documentation for date of: 04/13/24 Subjective Subjective Interval history: 04/13: no acute overnight events reported. Pt is seen and examined during dialysis in ICU. Pt is intubated and mechanically ventilated however she is not sedation. she does not follow commands. Pt opens her eyes and blinks and turns her head side to side without external stimuli. leukocytosis is uptrending, hemaglobin is stable , potassium is 3.9 and magnesium is 3.1. Exam Vital Signs Temp Pulse Resp BP Pulse Ox O2 Del Method O2 Flow Rate 98.4 F 99 27 H 87/59 L 96 Mechanical Ventilation 13 04/13/24 07:22 04/13/24 09:45 04/13/24 07:22 04/13/24 09:45 04/13/24 07:22 04/13/24 06:01 04/12/24 06:00 FiO2 35 04/13/24 07:22 Narrative Exam GENERAL: Pt is sedatied and intubated on mechanical ventilation NEURO: unable to asses due to Pt is intubated and mechanical ventilated, does not follow commands HEENT: Atraumatic, Normocephalic. mucous membranes moist. Eyes open, symmetrical, & clear HEART: Normal Heart Sounds LUNGS: Clear to auscultation with no wheezing or crackles. ABDOMEN: soft, non-distended, non-tender, bowel sounds heard, no guarding or rebound tenderness SKIN: No Rash or ecchymoses EXTREMITIES: No edema, tenderness, able to move all 4 extremities, pedal pulses palpated Objective Labs 04/13/24 04:42 04/13/24 04:42 Labs: Laboratory Results - last 24 hr 04/08/24 04/08/24 04/12/24 07:10 18:00 11:35 WBC RBC Hgb Hct MCV MCH MCHC RDW Std Deviation Plt Count Neut % (Auto) Lymph % (Auto) [place] % (Auto) Eos % (Auto) Baso % (Auto) Neut # (Auto) Lymph # (Auto) [place] # (Auto) Eos # (Auto) Baso # (Auto) Immature Gran # (Auto) Absolute Nucleated RBC Immature Gran % Nucleated RBC % Puncture Site Left Radial ABG pH 7.40 ABG pCO2 40 ABG pO2 91 D ABG HCO3 25 ABG O2 Saturation 96 ABG Base Excess 0 FiO2 35 Sodium Potassium Chloride Carbon Dioxide Anion Gap BUN Creatinine Estim Creat Clear Calc eGFR BUN/Creatinine Ratio Glucose Calculated Osmolality Calcium Corrected Calcium Phosphorus Magnesium Total Bilirubin AST ALT Alkaline Phosphatase Total Protein Albumin Globulin Albumin/Globulin Ratio CSF VDRL NON-REACTIVE Valproic Acid 36.9 L 04/13/24 04:42 WBC 17.8 H RBC 3.00 L Hgb 8.4 L Hct 27.0 L MCV 90 MCH 28.0 MCHC 31.1 RDW Std Deviation 51.3 H Plt Count 302 Neut % (Auto) 73 Lymph % (Auto) 4 L [place] % (Auto) 13 H Eos % (Auto) 0 Baso % (Auto) 0 Neut # (Auto) 12.9 H Lymph # (Auto) 0.7 L [place] # (Auto) 2.3 H Eos # (Auto) 0.0 Baso # (Auto) 0.0 Immature Gran # (Auto) 1.83 H Absolute Nucleated RBC 0.14 H Immature Gran % 10 H Nucleated RBC % 1 H Puncture Site ABG pH ABG pCO2 ABG pO2 ABG HCO3 ABG O2 Saturation ABG Base Excess FiO2 Sodium 141 Potassium 3.9 Chloride 102 Carbon Dioxide 21.3 Anion Gap 18 H BUN 101 H* Creatinine 7.0 H* D Estim Creat Clear Calc 8.1 L eGFR 6 L* BUN/Creatinine Ratio 14 Glucose 346 H Calculated Osmolality 326 H Calcium 9.5 Corrected Calcium 10.0 Phosphorus 5.1 Magnesium 3.1 H Total Bilirubin 0.2 L AST 14 ALT 11 Alkaline Phosphatase 87 Total Protein 6.7 Albumin 3.4 Globulin 3.3 Albumin/Globulin Ratio 1.0 L CSF VDRL Valproic Acid ABG Interpretation ABG results: 04/05/24 04/06/24 04/06/24 13:11 05:17 13:37 ABG pH 7.23 L 7.23 L ABG pCO2 39 31 L ABG pO2 54 L* 70 L ABG HCO3 16 L 13 L ABG O2 Saturation 86 L 92 ABG Base Excess -11 L -13 L VBG pH 7.23 L VBG pCO2 34 L VBG pO2 35 VBG Base Excess -13 L 04/06/24 04/07/24 04/08/24 16:56 12:14 14:46 ABG pH 7.42 D 7.39 7.36 ABG pCO2 35 40 44 ABG pO2 69 L 79 L 40 L* D ABG HCO3 23 24 25 ABG O2 Saturation 94 94 71 L ABG Base Excess -2 -1 -1 VBG pH VBG pCO2 VBG pO2 VBG Base Excess 04/08/24 04/08/24 04/10/24 16:20 17:19 09:05 ABG pH 7.34 L 7.35 Cancelled ABG pCO2 46 45 Cancelled ABG pO2 36 L* 113 H D Cancelled ABG HCO3 25 25 Cancelled ABG O2 Saturation 63 L 97 Cancelled ABG Base Excess -1 -1 Cancelled VBG pH VBG pCO2 VBG pO2 VBG Base Excess 04/10/24 04/10/24 04/10/24 09:41 11:45 14:26 ABG pH 7.10 L* D 7.12 L* 7.20 L ABG pCO2 75 H* D 73 H* 58 H D ABG pO2 71 L D 75 L 78 L ABG HCO3 23 24 23 ABG O2 Saturation 89 L 90 L 93 ABG Base Excess -7 L -6 L -5 L VBG pH VBG pCO2 VBG pO2 VBG Base Excess 04/10/24 04/11/24 04/11/24 15:21 05:29 17:04 ABG pH 7.25 L 7.40 D 7.39 ABG pCO2 52 H 40 D 40 ABG pO2 90 93 74 L ABG HCO3 23 25 24 ABG O2 Saturation 95 98 93 ABG Base Excess -5 L 0 -1 VBG pH VBG pCO2 VBG pO2 VBG Base Excess 04/12/24 04/12/24 05:23 11:35 ABG pH 7.41 7.40 ABG pCO2 39 40 ABG pO2 147 H D 91 D ABG HCO3 25 25 ABG O2 Saturation 98 96 ABG Base Excess 0 0 VBG pH VBG pCO2 VBG pO2 VBG Base Excess Quality Measures Quality Measures VTE prophylaxis Advance care planning discussed with:: other Assessment & Plan Assessment Current Active Medications: Generic Name Dose Route Start Last Admin Trade Name Freq PRN Reason Stop Dose Admin Acetaminophen 650 mg 04/05/24 23:06 Acetaminophen 325 Mg Tablet PO 05/05/24 23:05 Q6H PRN PAIN SCALE 1-3 (mild Acetaminophen 650 mg 04/05/24 23:06 Acetaminophen 325 Mg Tablet PO 05/05/24 23:05 Q6H PRN Fever >100 Albuterol/Ipratropium 3 ml 04/10/24 11:45 04/13/24 06:25 Albuterol/Ipratropium (Duoneb) Rt Princess 3 Ml Nebu INH 05/10/24 11:44 3 ml Q4HRRT DELMY Administration Aspirin 325 mg 04/12/24 10:15 04/12/24 10:26 Aspirin 325 Mg Tablet NG 05/12/24 10:14 325 mg QDAY DELMY Administration Atorvastatin Calcium 80 mg 04/11/24 21:00 04/12/24 20:21 Atorvastatin Calcium 20 Mg Tablet NG 05/11/24 20:59 80 mg HS DELMY Administration Calcium Carbonate 600 mg 04/06/24 14:45 04/13/24 08:49 Calcium Carbonate 600 Mg Tablet PO 05/06/24 14:44 600 mg BID DELMY Administration Clopidogrel Bisulfate 75 mg 04/12/24 09:00 04/12/24 10:10 Clopidogrel Bisulfate 75 Mg Tablet NG 05/12/24 08:59 75 mg QDAY DELMY Administration Dextrose 25 ml 04/07/24 10:52 Dextrose 50%-Water Inj 50 Ml Syringe IV 05/07/24 10:51 Q15MIN PRN BG 50-70 responsive npo pt Dextrose 50 ml 04/07/24 10:52 Dextrose 50%-Water Inj 50 Ml Syringe IV 05/07/24 10:51 Q15MIN PRN BG <50 OR BG <70 & pt unresponsive Glucagon 1 mg 04/07/24 10:52 Glucagon Inj 1 Mg Vial IM Q15MIN PRN BG <70, and no IV access Heparin Sodium (Porcine) 3,300 unit 04/06/24 15:03 04/10/24 20:13 Heparin Sod Inj 1000 Unit/Ml Vial 10 Ml INDWELLCAT 04/20/24 15:02 3,300 unit PRN PRN Administration DIALYSIS Heparin Sodium (Porcine) 5,000 unit 04/09/24 08:00 04/13/24 06:06 Heparin Sod Inj 5000 Unit/Ml Vial SC 04/23/24 07:59 5,000 unit Q8HR DELMY Administration Albumin Human 25 gm in 100 mls @ 100 mls/min 04/06/24 08:27 04/13/24 08:21 Albuminar-25 Ivpb IV 100 mls/min PRN PRN Administration DIALYSIS Dexmedetomidine/Sodium Chloride 200 mcg in 50 mls @ 5.31 mls/hr 04/08/24 09:17 04/11/24 05:00 Precedex Ivpb IV 05/08/24 09:16 0 mcg/kg/hr .Q9H25M PRN 0 mls/hr Per PROTOCOL Titration Protocol 0.2 MCG/KG/HR Norepinephrine/Dextrose 8 mg in 250 mls @ 9.956 mls/hr 04/08/24 09:53 04/13/24 09:00 Levophed In D5w 8mg/250ml IV 05/08/24 09:52 0.03 mcg/kg/min .Q24H PRN 5.974 mls/hr PER PROTOCOL Titration Protocol 0.05 MCG/KG/MIN Methylprednisolone Sodium 104 mls @ 104 mls/hr 04/09/24 12:00 04/10/24 13:27 Succinate 250 mg/ Sodium IV 04/16/24 11:59 Not Given Chloride Q6HR DELMY Fentanyl Citrate 2,500 mcg in 250 mls @ 2.5 mls/hr 04/10/24 09:47 Sublimaze Inj 2,500 Mcg/250 Ml Bag IV 04/15/24 09:46 .Q24H PRN PER PROTOCOL Protocol 25 MCG/HR Propofol 1,000 mg in 100 mls @ 2.955 mls/hr 04/10/24 09:50 Diprivan Ivpb IV 05/10/24 09:49 .Q24H PRN PER PROTOCOL Protocol 5 MCG/KG/MIN Valproic Acid 750 mg/ Sodium 57.5 mls @ 55 mls/hr 04/11/24 14:00 04/13/24 05:20 Chloride IV 05/08/24 21:59 55 mls/hr Q8HR DELMY Administration Phenylephrine HCl 40 mg/ 100 mls @ 1.422 mls/hr 04/11/24 20:11 Sodium Chloride IV 05/11/24 20:10 .Q24H PRN Per Cardiogenic Protocol Protocol 0.1 MCG/KG/MIN Meropenem 500 mg/ Sodium 50 mls @ 100 mls/hr 04/13/24 10:00 Chloride IV 04/20/24 09:59 QDAY DELMY Insulin Glargine 50 unit 04/12/24 10:30 04/13/24 08:50 Insulin Glargine (Lantus) 5 Unit/0.05 Ml (Per 5 Units) SC 05/12/24 10:29 50 unit QDAY DELMY Administration Insulin Human Lispro 0 unit 04/10/24 14:00 04/13/24 06:05 Insulin Lispro (Admelog) 1 Unit/0.01 Ml Unit SC 05/10/24 13:59 6 unit Q4HR DELMY Administration Protocol Labetalol HCl 10 mg 04/05/24 23:55 Labetalol Inj 5 Mg/Ml Vial 20 Ml IVP 05/05/24 23:54 X1 PRN BP >220/110 Lidocaine HCl 9 ml 04/06/24 11:00 Lidocaine Inj Pf 1% 5 Ml Vial INFL X1 PRN LOCAL ANESTHESIA Protocol Metoprolol Succinate 50 mg 04/12/24 19:00 04/12/24 20:15 Metoprolol Succinate Xl 25 Mg Tabcr GT 05/12/24 18:59 50 mg QDAY DELMY Administration Ondansetron HCl 4 mg 04/05/24 23:06 Ondansetron Inj 2 Mg/Ml Inj 2 Ml IV 05/05/24 23:05 Q6H PRN NAUSEA OR VOMITING Protocol Pantoprazole Sodium 40 mg 04/06/24 09:00 04/13/24 08:50 Pantoprazole Inj 40 Mg Vial IVP 05/06/24 08:59 40 mg QDAY DELMY Administration Pharmacy Consult 1 each 04/09/24 08:54 Pharmacy Renal Dose Adjustment 1 Ea XX 05/08/24 08:59 QDAY PRN protocol Plan Ms. Vogt is a 64-year-old female with past medical history significant for hypertension, hyperlipidemia, type 2 diabetes, nephrolithiasis, history of CVA with residual deficit on the left side (2017). Patient presented to the emergency department 04/05/24 due to altered mental status and slurred speech, stroke alert was called, MRI/MRA of the brain showed 20 mm of acute infarct of the anterior right brainstem at the pontine level and 14 mm acute infarct of the right basal ganglia. Patient became increasingly altered had increased bleeding higher oxygen requirements patient was switched from high flow to BiPAP and unable to saturate decision was made to upgrade the patient to to the ICU on 04/07/24 an recent acute CVA and the possibility of hemorrhagic conversion and also d patient was unable to protect her airway and was intubated on 04/10/2024 cardiology was consulted for elevated troponins. # Acute CVA # Acute encephalopathy #Acute respiratory failure- Pt is unable to protect her airway therefore intubated on 04/10 --Pt initially presented with altered mental status and high suspicion of meningitis. Pt patient was initially on IV antibiotics with cefepime and vancomycin which was DC'd on 04/11 due to negative blood cultures as well as CSF fluid cultures had no growth in 3 days however the Gram stain was positive for GPC. -Although CT of the head is negative , the MRI/MRA of the brain showed 12 mm acute infarct of the anterior right brainstem (pontine level), 14 mm acute infarct of right basal ganglia. -Patient also underwent EEG which showed diffuse slowing, suggestive of encephalopathy of metabolic versus degenerative versus vascular origin without epileptic waveforms. Per neurorecommendations valproate was started. -For acute CVA patient is on aspirin 325 mg, clopidogrel 75 mg and atorvastatin 80 mg -Neurology is following #elevated troponins, NSTEMI type ll On admissions patient's troponin were 1.319-> 1.271- On 04/10 troponins trend is 0.0.641-> 0.983-> 1.814-> 1.854 -Unable to assess if patient has chest pain or not due to patient was intubated initially sedated however even though currently patient is off sedation she is still obtunded and unable to follow commands or wake up. -Elevated troponins are likely secondary to NSTEMI type II in the setting of demand ischemia due to patient's acute illness requiring intubation and stroke. -Echo completed on 04/08/2024 findings include:Negative bubble study Normal LV size and wall thickness. Estimated EF 55-60 %. RV is normal in size and systolic function. Trace MR. -Repeat EKG does not evident of ischemic MT. Therefore urgent cardiac catheterization is not needed at this time. When patient is improved from acute CVA then further workup and history will be repeated Recommendations include to continue aspirin, statin, and beta-vero if blood pressure is permissible -Patient currently does not require heparin drip due to CVA and blood found during bronchoscopy -No further troponin trend is recommended New onset A-fib with RVR -On 04/11 patient was found to be in A-fib with RVR with heart rate up to 170, blood pressure at the time was 110/70 -Patient was started on amiodarone drip along with bolus amiodarone was given as well as metoprolol 2.5 Mg IV x 1 -[id number] score is 6, however with hold anticoagulation at this time due to findings of bronchoscopically and acute CVA. -Patient is to be transitioned to metoprolol succinate 50 XL GT after the current amnio drip finishes it can be turned off -Keep potassium above 4 and magnesium above 2 at all times #leukocytosis #unknown source -Pt spiked a fever and leukocytosis is uptrending. - CSF fluid , BC , urine culture, MRSA are all negative, CXR does not show pneumonia, -Pt is started on IV antibiotics with meropenem -ID is consulted and following #End-stage renal disease on hemodialysis-new onset -DialysisContinue dialysis as per schedule -signal helper Dr. Sheridan is following catheter placed on 04/06/2024 #Nephrolithiasis -ultrasound showed 10 mm and 14 mm stones on the left side without hydronephrosis. - recommended outpatient workup #primary hypertension #Hyperlipidemia -Due to stroke patient was allowed permissive hypertension with the parameters in place labetalol 5 mg is as needed for systolic blood pressure above 180 -current BP is stable 133/69 -For hyperlipidemia patient is on atorvastatin 80mg HS #type 2 Diabetes mellitus Hemoglobin A1c is 5.9 -Patient is home insulin is glargine 60 units -Patient is started on insulin sliding scale and hypoglycemia protocol is in place Assessment and plan discussed with my attending physician Dr. Huber Lomax (PGY-1)- Internal medicine resident Attending Provider Attestation/Addendum I have personally seen and examined the patient separately on the above date of service and discussed the plan of care with the resident. I reviewed the resident Dr. Maico Lomax consultation progress note and agree with the resident findings and plan in the note above and have also edited the documentation to reflect my findings and plan. Patient did have fever overnight and worsening WBC count to 17,000. Primary team starting the patient on antibiotics for sepsis of having source Telemetry reviewed and patient is no longer in atrial fibrillation and is in intermittent sinus rhythm as well as sinus tachycardia. Amiodarone drip was completed as per protocol. Recommend to increase metoprolol XL to 50 mg once daily for now for rate control as the blood pressure is acceptable. Patient will need anticoagulation for the atrial fibrillation and recommend to discuss with neurology regarding starting anticoagulation for the patient if it is not contraindicated with her recent acute stroke. Presently patient is on aspirin and Plavix for the recent acute stroke Keep potassium greater than 4 and magnesium greater than 2.0 at all times. Patient still continues to be intubated and sedated during my exam in the has some purposeful movements at times. Neurology will follow the patient in the CSF analysis was not conclusive. Patient did have some myoclonic jerks which are better and recommended high-dose steroids with IVIG. Patient condition continues to be critical and overall prognosis appears to be poor which was discussed with the family Chad Ngo M.D. Interventional Cardiology
--- NOTE | 2024-04-13 10:28 | ESPR_ITS ---
Subjective Subjective Interval history: see dictation Exam Vital Signs Temp Pulse Resp BP Pulse Ox O2 Del Method O2 Flow Rate 98.4 F 92 27 H 90/65 96 Mechanical Ventilation 13 04/13/24 07:22 04/13/24 10:15 04/13/24 07:22 04/13/24 10:15 04/13/24 07:22 04/13/24 06:01 04/12/24 06:00 FiO2 35 04/13/24 07:22 Objective - Internal Medicine Labs 04/14/24 04:57 04/14/24 15:40 Labs: Laboratory Results - last 24 hr 04/08/24 04/08/24 04/12/24 07:10 18:00 11:35 WBC RBC Hgb Hct MCV MCH MCHC RDW Std Deviation Plt Count Neut % (Auto) Lymph % (Auto) [place] % (Auto) Eos % (Auto) Baso % (Auto) Neut # (Auto) Lymph # (Auto) [place] # (Auto) Eos # (Auto) Baso # (Auto) Immature Gran # (Auto) Absolute Nucleated RBC Immature Gran % Nucleated RBC % Puncture Site Left Radial ABG pH 7.40 ABG pCO2 40 ABG pO2 91 D ABG HCO3 25 ABG O2 Saturation 96 ABG Base Excess 0 FiO2 35 Sodium Potassium Chloride Carbon Dioxide Anion Gap BUN Creatinine Estim Creat Clear Calc eGFR BUN/Creatinine Ratio Glucose Calculated Osmolality Calcium Corrected Calcium Phosphorus Magnesium Total Bilirubin AST ALT Alkaline Phosphatase Total Protein Albumin Globulin Albumin/Globulin Ratio CSF VDRL NON-REACTIVE Valproic Acid 36.9 L 04/13/24 04:42 WBC 17.8 H RBC 3.00 L Hgb 8.4 L Hct 27.0 L MCV 90 MCH 28.0 MCHC 31.1 RDW Std Deviation 51.3 H Plt Count 302 Neut % (Auto) 73 Lymph % (Auto) 4 L [place] % (Auto) 13 H Eos % (Auto) 0 Baso % (Auto) 0 Neut # (Auto) 12.9 H Lymph # (Auto) 0.7 L [place] # (Auto) 2.3 H Eos # (Auto) 0.0 Baso # (Auto) 0.0 Immature Gran # (Auto) 1.83 H Absolute Nucleated RBC 0.14 H Immature Gran % 10 H Nucleated RBC % 1 H Puncture Site ABG pH ABG pCO2 ABG pO2 ABG HCO3 ABG O2 Saturation ABG Base Excess FiO2 Sodium 141 Potassium 3.9 Chloride 102 Carbon Dioxide 21.3 Anion Gap 18 H BUN 101 H* Creatinine 7.0 H* D Estim Creat Clear Calc 8.1 L eGFR 6 L* BUN/Creatinine Ratio 14 Glucose 346 H Calculated Osmolality 326 H Calcium 9.5 Corrected Calcium 10.0 Phosphorus 5.1 Magnesium 3.1 H Total Bilirubin 0.2 L AST 14 ALT 11 Alkaline Phosphatase 87 Total Protein 6.7 Albumin 3.4 Globulin 3.3 Albumin/Globulin Ratio 1.0 L CSF VDRL Valproic Acid ABG Interpretation ABG results: 04/05/24 04/06/24 04/06/24 13:11 05:17 13:37 ABG pH 7.23 L 7.23 L ABG pCO2 39 31 L ABG pO2 54 L* 70 L ABG HCO3 16 L 13 L ABG O2 Saturation 86 L 92 ABG Base Excess -11 L -13 L VBG pH 7.23 L VBG pCO2 34 L VBG pO2 35 VBG Base Excess -13 L 04/06/24 04/07/24 04/08/24 16:56 12:14 14:46 ABG pH 7.42 D 7.39 7.36 ABG pCO2 35 40 44 ABG pO2 69 L 79 L 40 L* D ABG HCO3 23 24 25 ABG O2 Saturation 94 94 71 L ABG Base Excess -2 -1 -1 VBG pH VBG pCO2 VBG pO2 VBG Base Excess 04/08/24 04/08/24 04/10/24 16:20 17:19 09:05 ABG pH 7.34 L 7.35 Cancelled ABG pCO2 46 45 Cancelled ABG pO2 36 L* 113 H D Cancelled ABG HCO3 25 25 Cancelled ABG O2 Saturation 63 L 97 Cancelled ABG Base Excess -1 -1 Cancelled VBG pH VBG pCO2 VBG pO2 VBG Base Excess 04/10/24 04/10/24 04/10/24 09:41 11:45 14:26 ABG pH 7.10 L* D 7.12 L* 7.20 L ABG pCO2 75 H* D 73 H* 58 H D ABG pO2 71 L D 75 L 78 L ABG HCO3 23 24 23 ABG O2 Saturation 89 L 90 L 93 ABG Base Excess -7 L -6 L -5 L VBG pH VBG pCO2 VBG pO2 VBG Base Excess 04/10/24 04/11/24 04/11/24 15:21 05:29 17:04 ABG pH 7.25 L 7.40 D 7.39 ABG pCO2 52 H 40 D 40 ABG pO2 90 93 74 L ABG HCO3 23 25 24 ABG O2 Saturation 95 98 93 ABG Base Excess -5 L 0 -1 VBG pH VBG pCO2 VBG pO2 VBG Base Excess 04/12/24 04/12/24 05:23 11:35 ABG pH 7.41 7.40 ABG pCO2 39 40 ABG pO2 147 H D 91 D ABG HCO3 25 25 ABG O2 Saturation 98 96 ABG Base Excess 0 0 VBG pH VBG pCO2 VBG pO2 VBG Base Excess Assessment & Plan A&P Narrative 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 noted this admit. may have been developing with hx of dm and proteinuria that appears to have been long standing Essential hypertension Obesity with possible obesity ventilation syndrome and GEMMA other problems as noted lack of overt bacterial infection noted. if no micro rationale in 48hr then may stop the merrem on wed if you do not merrem just added today. but problem seems to be non infectious do not use procal in tiffany or ckd. the chemical is made by the body and renally cleared, so in tiffany or ckd, it may accumulate. please do not repeat that test in this setting ever. it is also elevated post operatively and sometimes in [place], so those are some other settings to NOT use procal. Time Spent With Patient Time: Total time spent is greater than 50% in coordination of care (as documented) at patient's floor/unit and/or counseling patient:
--- NOTE | 2024-04-13 10:29 | PC.SS ---
Update: Patient receiving dialysis today. Patient receiving pressor support. Patient remains intubated.
--- NOTE | 2024-04-13 10:29 | PD.RESPRO ---
Documentation for date of: 04/13/24 Subjective Subjective Interval history: The patient is a 64-year-old female with significant past medical history of 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 Stroke alert was called, and underwent stroke workup. tPA not given due to out of window. On further interviewing, she reported that she has been taking some penicillin that was brought from [place] of long time ago. She also took Motrin x 2 in last 2 days. She admitted having fever, denied any chills, lightheadedness, chest pain, and any flank pain. Her vitals are fairly stable, hemoglobin 9.1, ABG significant for pH 7.23, pCO2 39, pO2 70. Chemistry panel revealed sodium 133, mild hyperkalemia, bicarb 15.1. BUN 66, creatinine 5.9, EGFR 7. Baseline creatinine is 1.6 with EGFR 56. Triglyceride 493, cholesterol 191, HDL 30 with normal TSH and T4. Hepatitis panel negative. CT head negative for midline shift, acute hemorrhage or mass effect. Pending carotid US, and brain MRI. CXR with mild congestion and superimposed pneumonia. CT abdomen pelvis revealed significant hepatomegaly, moderate bilateral renal parenchymal scarring, 10 mm and 14 mm renal calculi on the left, cystitis pattern, no hydronephrosis or bowel obstruction. PMH: As mentioned above Social history: Denies alcohol, smoking or any illicit drug use Allergies: No known allergies 04/07/2024: The patient was interviewed and examined at the bedside. She was saturating 93% on BiPAP, with FiO2 40% and O2 flow 30 L. Chemistry panel revealed BUN 52, creatinine 4.9, EGFR 9, blood sugar 279, calcium 8.1 and phosphorus 6.0. The patient will get second session of hemodialysis this morning. Urine random creatinine 113, protein 598, sodium 42, potassium 33, chloride 27, urea nitrogen 302. Renal ultrasound significant for moderate bilateral renal parenchymal eschar formation, bilateral renal cortical thinning with no hydronephrosis. 04/08/2024: The patient was examined at the bedside this morning. She reported having difficulty breathing. She was upgraded to ICU. She was saturating 92% on BiPAP. Other vitals were fairly stable. Physical examination was significant for distant breath sounds, and bibasilar crackles. Labs were significant for hemoglobin trending down to 8.1 likely dilutional, BUN 41 and creatinine 4.4, phosphorus 5.8. Ordered ZAINAB screen, ANCA, antiproteinase 3, antimyeloperoxidase and complement level. 04/09/2024: The patient was at the bedside this morning again. She was difficult to arouse and was reacting to painful stimulus. Her vitals were stable saturating 97% on high flow NC with FiO2 80%. The patient underwent hemodialysis yesterday with removal of 3 L fluid and was hypotensive after that. BUN And creatinine improving to 26 and 3.7 respectively. Phosphorus 5.6 less than 10. We will hold off today and proceed with morning. 04/10/24: The patient was agitated overnight and was given 2 mg of IV lorazepam. This morning, she was responding only to painful stimuli, lying on her bed. Her fingerstick blood sugar this morning was 483, hemoglobin 8.9, Chemistry panel significant for potassium 5.0, BUN 53, creatinine 5.6, and blood sugar 596. The patient is planned to undergo hemodialysis this morning. 04/11/2024: The patient was examined at the ICU bedside this morning. She was intubated. She was, saturating 100% on mechanical ventilation, on FiO2 45%, with heart rate 112, and respiratory rate in 30s. CBC was significant for WBC 9.9, hemoglobin 8.1 ABG WNL, sodium 139, potassium 3.4, anion gap 18, BUN 51 and creatinine 4.7 with blood glucose 350, troponin trended up to 1.854. We will hold off on dialysis for today, and proceed with dialysis tomorrow morning. 04/13/2024: The patient was examined at the ICU bedside this morning again. She was intubated, was saturating 96% on mechanical ventilation with FiO2 35%. She was responsive only to deep stimuli with mild eye-opening. CBC revealed white count 17.8, hemoglobin 8.4, chemistry panel with anion gap 18, BUN 101, creatinine 7.0, EGFR 6, blood sugar 346, magnesium 3.1. Patient was tolerating hemodialysis well this morning. Exam Vital Signs Temp Pulse Resp BP Pulse Ox O2 Del Method O2 Flow Rate 98.4 F 92 27 H 90/65 96 Mechanical Ventilation 13 04/13/24 07:22 04/13/24 10:15 04/13/24 07:22 04/13/24 10:15 04/13/24 07:22 04/13/24 06:01 04/12/24 06:00 FiO2 35 04/13/24 07:22 Narrative Exam General: No acute distress, alert and oriented x 0,responding only to deep stimuli. HEENT: Moist mucous membranes, oropharynx clear, sedated and intubated Neck: Supple, No masses, No JVD CVS: S1S2 Regular rate and rhythm, No murmurs, rubs or gallops Lungs: Distant breath sounds, no crackles, no wheeze no rhonchi Abd: Soft, NT/ND, +BS, no organomegaly Ext: 1+ bilateral lower limb edema, warm and well perfused, peripheral arteries barely palpable Skin: No rash Psych: Unobtainable Objective Labs 04/14/24 04:57 04/14/24 04:57 Labs: Laboratory Results - last 24 hr 04/08/24 04/08/24 04/12/24 07:10 18:00 11:35 WBC RBC Hgb Hct MCV MCH MCHC RDW Std Deviation Plt Count Neut % (Auto) Lymph % (Auto) [place] % (Auto) Eos % (Auto) Baso % (Auto) Neut # (Auto) Lymph # (Auto) [place] # (Auto) Eos # (Auto) Baso # (Auto) Immature Gran # (Auto) Absolute Nucleated RBC Immature Gran % Nucleated RBC % Puncture Site Left Radial ABG pH 7.40 ABG pCO2 40 ABG pO2 91 D ABG HCO3 25 ABG O2 Saturation 96 ABG Base Excess 0 FiO2 35 Sodium Potassium Chloride Carbon Dioxide Anion Gap BUN Creatinine Estim Creat Clear Calc eGFR BUN/Creatinine Ratio Glucose Calculated Osmolality Calcium Corrected Calcium Phosphorus Magnesium Total Bilirubin AST ALT Alkaline Phosphatase Total Protein Albumin Globulin Albumin/Globulin Ratio CSF VDRL NON-REACTIVE Valproic Acid 36.9 L 04/13/24 04:42 WBC 17.8 H RBC 3.00 L Hgb 8.4 L Hct 27.0 L MCV 90 MCH 28.0 MCHC 31.1 RDW Std Deviation 51.3 H Plt Count 302 Neut % (Auto) 73 Lymph % (Auto) 4 L [place] % (Auto) 13 H Eos % (Auto) 0 Baso % (Auto) 0 Neut # (Auto) 12.9 H Lymph # (Auto) 0.7 L [place] # (Auto) 2.3 H Eos # (Auto) 0.0 Baso # (Auto) 0.0 Immature Gran # (Auto) 1.83 H Absolute Nucleated RBC 0.14 H Immature Gran % 10 H Nucleated RBC % 1 H Puncture Site ABG pH ABG pCO2 ABG pO2 ABG HCO3 ABG O2 Saturation ABG Base Excess FiO2 Sodium 141 Potassium 3.9 Chloride 102 Carbon Dioxide 21.3 Anion Gap 18 H BUN 101 H* Creatinine 7.0 H* D Estim Creat Clear Calc 8.1 L eGFR 6 L* BUN/Creatinine Ratio 14 Glucose 346 H Calculated Osmolality 326 H Calcium 9.5 Corrected Calcium 10.0 Phosphorus 5.1 Magnesium 3.1 H Total Bilirubin 0.2 L AST 14 ALT 11 Alkaline Phosphatase 87 Total Protein 6.7 Albumin 3.4 Globulin 3.3 Albumin/Globulin Ratio 1.0 L CSF VDRL Valproic Acid ABG Interpretation ABG results: 04/05/24 04/06/24 04/06/24 13:11 05:17 13:37 ABG pH 7.23 L 7.23 L ABG pCO2 39 31 L ABG pO2 54 L* 70 L ABG HCO3 16 L 13 L ABG O2 Saturation 86 L 92 ABG Base Excess -11 L -13 L VBG pH 7.23 L VBG pCO2 34 L VBG pO2 35 VBG Base Excess -13 L 04/06/24 04/07/24 04/08/24 16:56 12:14 14:46 ABG pH 7.42 D 7.39 7.36 ABG pCO2 35 40 44 ABG pO2 69 L 79 L 40 L* D ABG HCO3 23 24 25 ABG O2 Saturation 94 94 71 L ABG Base Excess -2 -1 -1 VBG pH VBG pCO2 VBG pO2 VBG Base Excess 04/08/24 04/08/24 04/10/24 16:20 17:19 09:05 ABG pH 7.34 L 7.35 Cancelled ABG pCO2 46 45 Cancelled ABG pO2 36 L* 113 H D Cancelled ABG HCO3 25 25 Cancelled ABG O2 Saturation 63 L 97 Cancelled ABG Base Excess -1 -1 Cancelled VBG pH VBG pCO2 VBG pO2 VBG Base Excess 04/10/24 04/10/24 04/10/24 09:41 11:45 14:26 ABG pH 7.10 L* D 7.12 L* 7.20 L ABG pCO2 75 H* D 73 H* 58 H D ABG pO2 71 L D 75 L 78 L ABG HCO3 23 24 23 ABG O2 Saturation 89 L 90 L 93 ABG Base Excess -7 L -6 L -5 L VBG pH VBG pCO2 VBG pO2 VBG Base Excess 04/10/24 04/11/24 04/11/24 15:21 05:29 17:04 ABG pH 7.25 L 7.40 D 7.39 ABG pCO2 52 H 40 D 40 ABG pO2 90 93 74 L ABG HCO3 23 25 24 ABG O2 Saturation 95 98 93 ABG Base Excess -5 L 0 -1 VBG pH VBG pCO2 VBG pO2 VBG Base Excess 04/12/24 04/12/24 05:23 11:35 ABG pH 7.41 7.40 ABG pCO2 39 40 ABG pO2 147 H D 91 D ABG HCO3 25 25 ABG O2 Saturation 98 96 ABG Base Excess 0 0 VBG pH VBG pCO2 VBG pO2 VBG Base Excess Quality Measures Quality Measures VTE prophylaxis Advance care planning discussed with:: child and other Assessment & Plan Assessment Current Active Medications: Generic Name Dose Route Start Last Admin Trade Name Freq PRN Reason Stop Dose Admin Acetaminophen 650 mg 04/05/24 23:06 Acetaminophen 325 Mg Tablet PO 05/05/24 23:05 Q6H PRN PAIN SCALE 1-3 (mild Acetaminophen 650 mg 04/05/24 23:06 Acetaminophen 325 Mg Tablet PO 05/05/24 23:05 Q6H PRN Fever >100 Albuterol/Ipratropium 3 ml 04/10/24 11:45 04/13/24 10:27 Albuterol/Ipratropium (Duoneb) Rt Princess 3 Ml Nebu INH 05/10/24 11:44 3 ml Q4HRRT DELMY Administration Aspirin 325 mg 04/12/24 10:15 04/12/24 10:26 Aspirin 325 Mg Tablet NG 05/12/24 10:14 325 mg QDAY DELMY Administration Atorvastatin Calcium 80 mg 04/11/24 21:00 04/12/24 20:21 Atorvastatin Calcium 20 Mg Tablet NG 05/11/24 20:59 80 mg HS DELMY Administration Calcium Carbonate 600 mg 04/06/24 14:45 04/13/24 08:49 Calcium Carbonate 600 Mg Tablet PO 05/06/24 14:44 600 mg BID DELMY Administration Clopidogrel Bisulfate 75 mg 04/12/24 09:00 04/12/24 10:10 Clopidogrel Bisulfate 75 Mg Tablet NG 05/12/24 08:59 75 mg QDAY DELMY Administration Dextrose 25 ml 04/07/24 10:52 Dextrose 50%-Water Inj 50 Ml Syringe IV 05/07/24 10:51 Q15MIN PRN BG 50-70 responsive npo pt Dextrose 50 ml 04/07/24 10:52 Dextrose 50%-Water Inj 50 Ml Syringe IV 05/07/24 10:51 Q15MIN PRN BG <50 OR BG <70 & pt unresponsive Glucagon 1 mg 04/07/24 10:52 Glucagon Inj 1 Mg Vial IM Q15MIN PRN BG <70, and no IV access Heparin Sodium (Porcine) 3,300 unit 04/06/24 15:03 04/10/24 20:13 Heparin Sod Inj 1000 Unit/Ml Vial 10 Ml INDWELLCAT 04/20/24 15:02 3,300 unit PRN PRN Administration DIALYSIS Heparin Sodium (Porcine) 5,000 unit 04/09/24 08:00 04/13/24 06:06 Heparin Sod Inj 5000 Unit/Ml Vial SC 04/23/24 07:59 5,000 unit Q8HR DELMY Administration Albumin Human 25 gm in 100 mls @ 100 mls/min 04/06/24 08:27 04/13/24 08:21 Albuminar-25 Ivpb IV 100 mls/min PRN PRN Administration DIALYSIS Dexmedetomidine/Sodium Chloride 200 mcg in 50 mls @ 5.31 mls/hr 04/08/24 09:17 04/11/24 05:00 Precedex Ivpb IV 05/08/24 09:16 0 mcg/kg/hr .Q9H25M PRN 0 mls/hr Per PROTOCOL Titration Protocol 0.2 MCG/KG/HR Norepinephrine/Dextrose 8 mg in 250 mls @ 9.956 mls/hr 04/08/24 09:53 04/13/24 09:00 Levophed In D5w 8mg/250ml IV 05/08/24 09:52 0.03 mcg/kg/min .Q24H PRN 5.974 mls/hr PER PROTOCOL Titration Protocol 0.05 MCG/KG/MIN Methylprednisolone Sodium 104 mls @ 104 mls/hr 04/09/24 12:00 04/10/24 13:27 Succinate 250 mg/ Sodium IV 04/16/24 11:59 Not Given Chloride Q6HR DELMY Fentanyl Citrate 2,500 mcg in 250 mls @ 2.5 mls/hr 04/10/24 09:47 Sublimaze Inj 2,500 Mcg/250 Ml Bag IV 04/15/24 09:46 .Q24H PRN PER PROTOCOL Protocol 25 MCG/HR Propofol 1,000 mg in 100 mls @ 2.955 mls/hr 04/10/24 09:50 Diprivan Ivpb IV 05/10/24 09:49 .Q24H PRN PER PROTOCOL Protocol 5 MCG/KG/MIN Valproic Acid 750 mg/ Sodium 57.5 mls @ 55 mls/hr 04/11/24 14:00 04/13/24 05:20 Chloride IV 05/08/24 21:59 55 mls/hr Q8HR DELMY Administration Phenylephrine HCl 40 mg/ 100 mls @ 1.422 mls/hr 04/11/24 20:11 Sodium Chloride IV 05/11/24 20:10 .Q24H PRN Per Cardiogenic Protocol Protocol 0.1 MCG/KG/MIN Meropenem 500 mg/ Sodium 50 mls @ 100 mls/hr 04/13/24 10:00 Chloride IV 04/20/24 09:59 QDAY DELMY Insulin Glargine 50 unit 04/12/24 10:30 04/13/24 08:50 Insulin Glargine (Lantus) 5 Unit/0.05 Ml (Per 5 Units) SC 05/12/24 10:29 50 unit QDAY DELMY Administration Insulin Human Lispro 0 unit 04/10/24 14:00 04/13/24 10:20 Insulin Lispro (Admelog) 1 Unit/0.01 Ml Unit SC 05/10/24 13:59 3 unit Q4HR DELMY Administration Protocol Labetalol HCl 10 mg 04/05/24 23:55 Labetalol Inj 5 Mg/Ml Vial 20 Ml IVP 05/05/24 23:54 X1 PRN BP >220/110 Lidocaine HCl 9 ml 04/06/24 11:00 Lidocaine Inj Pf 1% 5 Ml Vial INFL X1 PRN LOCAL ANESTHESIA Protocol Metoprolol Succinate 50 mg 04/12/24 19:00 04/12/24 20:15 Metoprolol Succinate Xl 25 Mg Tabcr GT 05/12/24 18:59 50 mg QDAY DELMY Administration Ondansetron HCl 4 mg 04/05/24 23:06 Ondansetron Inj 2 Mg/Ml Inj 2 Ml IV 05/05/24 23:05 Q6H PRN NAUSEA OR VOMITING Protocol Pantoprazole Sodium 40 mg 04/06/24 09:00 04/13/24 08:50 Pantoprazole Inj 40 Mg Vial IVP 05/06/24 08:59 40 mg QDAY DELMY Administration Pharmacy Consult 1 each 04/09/24 08:54 Pharmacy Renal Dose Adjustment 1 Ea XX 05/08/24 08:59 QDAY PRN protocol Plan The patient is a 64-year-old female with significant past medical history of 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 Stroke alert was called, and underwent stroke workup. tPA not given due to out of window. On further interviewing, she reported that she has been taking some penicillin that was brought from [place] of long time ago. She also took Motrin x 2 in last 2 days. She admitted having fever, denied any chills, lightheadedness, chest pain, and any flank pain. Nephrology consultation was done for further management of ANA LAURA in CKD stage IIIa. #ANA LAURA in CKD stage III A Secondary to hypertensive nephropathy and diabetes nephropathy Likely multifactorial secondary to ATN in the setting of severe respiratory infection, complicated by ibuprofen x2 use vs glomerular disease Patient's baseline creatinine is 1.6, and GFR is 56. On admission, creatinine 5.9 and GFR 7. On admission ABG significant for acidemia with pH 7.23, pCO2 39, pO2 70. Chemistry panel revealed sodium 133, mild hyperkalemia, bicarb 15.1. ABG significant for pH 7.42 revealing improvement in acidemia, BUN 52, creatinine 4.9, EGFR 9, calcium 8.1, phosphorus 6.0. Urine electrolytes with creatinine 113, total protein 598, sodium 42 (>40 suggestive of ATN), potassium 33, chloride 27, and urea nitrogen 302. BUN/CR ratio <20 so less likely prerenal. Renal ultrasound significant for moderate bilateral renal parenchymal eschar formation, bilateral renal cortical thinning with no hydronephrosis. -Stop the offending agent, penicillin which is likely cause of possible ATN 04/08/2024: Labs were significant for hemoglobin trending down to 8.1 likely dilutional, BUN 41 and creatinine 4.4, phosphorus 5.8. Ordered ZAINAB screen, ANCA, antiproteinase 3, antimyeloperoxidase and complement level, and we will plan for renal biopsy if ANA LAURA doesn't resolve in a couple of days. -Continue to monitor renal panel -Patient will undergo 3.5 hours hemodialysis session x 1 this morning again, and we will plan for 3 L ultrafiltration goal. -Can consider trying bumex 1-2mg x1 to increase urine output. 04/10/2024: Her fingerstick blood sugar this morning was 483, hemoglobin 8.9, Chemistry panel significant for potassium 5.0, BUN 53, creatinine 5.6, and blood sugar 596. The patient is planned to undergo hemodialysis this morning. 04/11/2024: sodium 139, potassium 3.4, anion gap 18, BUN 51 and creatinine 4.7 with blood glucose 350, troponin trended up to 1.854. We will hold off on dialysis for today, and proceed with dialysis tomorrow morning. 04/12/2024: BUN 101, creatinine 7.0, EGFR 6, blood sugar 346, magnesium 3.1. Patient was tolerating hemodialysis well this morning. We will further assess the patient tomorrow morning, and if needed we will proceed with hemodialysis again. #Hypocalcemia, improved 04/05 #Hyperphosphatemia -Improving Secondary to ANA LAURA on CKD -We will get phosphorus level tomorrow morning again, improved to 5.1, we will hold on sevelamer. -Continue to monitor renal panel #Renal tubular acidosis type IV, improved #Hypertensive emergency, resolved #Acute encephalopathy #Stroke rule out #Hx of CVA 2019 #Acute nephrolithiasis #Hx of renal calculi #Acute hypoxemic respiratory failure #Community-acquired pneumonia #GEMMA/OHS on oxygen HS #NSTEMI type II (improving) #HTN, HLD #IDDM type II -Management deferred to primary hospitalist team. Thank you for your opportunity to participate nephrology team in this patient care. The patient's management plan was discussed with my attending physician MD Jose Serrano MD, PGY2 Attending Provider Attestation/Addendum Patient seen and examined with resident physician Dr. Nesbitt. Note reviewed, agree with findings and recommendations. Patient currently in ICU. Patient got intubated for hypoxic respiratory failure. Patient currently seen on dialysis. Tolerating dialysis without any problems. Hemodialysis for 3 hours, 2K, ultrafiltration 2-3 L, Epogen 6000, no heparin ordered. Plan of care discussed with the dialysis nurse. Please see dialysis flowsheet for further details. Critical care time more than 35 minutes regarding plan of care and disease management. Labs/medications reviewed. Plan of care discussed with ICU team. CSF fluid showed gram-positive cocci. Cultures negative. On antibiotics. Neurology //ID on the case. Unexplained weakness and altered mental status.
--- NOTE | 2024-04-13 10:33 | PC.NURSE ---
CONNIE Schmid went up on Levophed.
--- NOTE | 2024-04-13 10:40 | ESCONSULT_ITS ---
<Statement entered by Chapito Campbell MD - 04/14/24 19:37> pt seen with resident. all findings confirmed HPI Data of Consult Consult date: 04/13/24 Requesting Physician: Marsha Contreras DO Admitting Provider: Mary Bardales MD Attending Provider: Marsha Contreras DO Primary Care Provider: SUNNY Whitney Consult Narrative Reason for consult: acute hypoxic resp failure on Meropenem History of present illness: This patient is a 64-year-old female with past medical history of diabetes with proteinuria and presumed renal failure in the setting of underlying diabetes, CVA in 2018 with left-sided residual deficit, hypertension, hyperlipidemia and nephrolithiasis presented with altered mental status and slurred speech. Stroke alert was initiated and patient was out of window for tPA. Vitals were fairly stable. Hemoglobin was 9.1. ABGs were significant for pH 7.23, pCO2 39 pO2 70. BUN was 66 and creatinine 5.9 with baseline 1.6 in 2023. Chest x-ray was significant for congestion and superimposed pneumonia. CT abdomen pelvis revealed significant hepatomegaly with moderate bilateral renal parenchymal scar formation 10 mm and 14 mm renal calculi on the left kidney, cystitis pattern, no hydronephrosis or bowel obstruction. MRI brain showed 2 acute CVAs with right which were small. Patient is admitted for acute hypoxic resp failure due to asp PNA, ANA LAURA with minimal urine output currently on hemodialysis, acute encephalopathy due to possible stroke with facial tics and myoclonic jerks/encephalitis on antiepileptics recommended by neurologist with steroid therapy. PMH: As above PSH: Dialysis catheter recently placed Allergies: NKDA SH: Denies alcohol, smoking or any illicit drug use 04/13/2024: Patient was seen and examined at the bedside in ICU. Patient is currently intubated and ventilated. She was receiving dialysis session with catheter placed for dialysis. white count elevated. Blood and urine cultures were negative. Patient had a fever spike overnight therefore meropenem was started by ICU team. Infectious causes less likely however there was elevation of white count as well as fever spike. Procalcitonin can be falsely elevated in ANA LAURA or CKD therefore not predictable at this stage. Patient has been seen by urologist, Dr. Pinto in previous years. Remote history of use of Macrobid in the past. LP was conducted which was significant for elevated proteins. Neurology has been consulted who recommended to continue steroids and hold off on IVIG for presumptive encephalitis. --> Recommended to continue meropenem for 48 hours until blood cultures comes negative for 48 hours. Ordered cocci serology, HIV. Agreeable to hold steroids. Ordered ESR and CRP. Continuing dialysis for ATN/ANA LAURA on CKD underlying chronic diabetes.Rest of the management by ICU team. cc:: cc: Marsha Contreras DO Review of Systems Review of Systems Systems Reviewed: All systems reviewed, normal except as documented Past Medical History Past Medical History NEUROLOGIC: Positive Neurological Disorders, Cerebrovascular Accident and Transient Ischemic Attacks (TIA); Negative Seizures CARDIAC: Positive Cardiac Disorders, Myocardial Infarction, Angina, Hypercholesterolemia and Hypertension; Negative Congestive Heart Failure RESPIRATORY: Positive Respiratory Disorders, Asthma and Sleep Apnea; Negative Chronic Obstructive Pulmonary Disease (COPD) GASTROINTESTINAL: Positive Gastrointestinal Disorders, Gastroesophageal Reflux Disease and Obesity GENITOURINARY: Positive Genitourinary Disorders and Kidney Stones; Negative Renal Disease REPRODUCTIVE: Positive Previous Pregnancies MUSCULOSKELETAL: Positive Musculoskeletal Disorders and Arthritis ENDOCRINE: Positive Endocrine Disorders and Diabetes Mellitus Type 2; Negative Diabetes Mellitus Type 1 HEMATOLOGIC: Positive Anemia; Negative Blood Disorders or Sickle Cell Disease OTHER HISTORY: Positive Hospitalization; Negative Blood Transfusions, Anesthesia Reactions or Cancer Family History FAMILY HISTORY: Negative Family Cardiac Disorders Surgical History SURGICAL: Positive Abdominal Surgery and Section Social History SMOKING STATUS: Never smoker Exam Vital Signs Temp Pulse Resp BP Pulse Ox O2 Del Method O2 Flow Rate 98.4 F 101 H 27 H 97/64 97 Mechanical Ventilation 13 04/13/24 07:22 04/13/24 10:35 04/13/24 07:22 04/13/24 10:35 04/13/24 10:28 04/13/24 06:01 04/12/24 06:00 FiO2 35 04/13/24 10:28 Narrative Exam GENERAL APPEARANCE: Obese female currently intubated and sedated. GCS 8T HEENT: NC, AT. MMM. EOMI, clear conjunctiva, oropharynx clear. NECK: Supple without lymphadenopathy. No stiffness or restricted ROM.left tunnel dialysis cath HEART: Regular rate and regular rhythm, normal S1/S2, no m/r/g LUNGS: coarse breath sounds, moving air well. No crackles or wheezes are heard. ABDOMEN: Soft, nontender, nondistended with good bowel sounds heard. BACK: No CVAT, no obvious deformity. EXTREMITIES: Without cyanosis, clubbing or edema. : Gonzalez cath in place NEUROLOGICAL: Grossly nonfocal. CN not formally tested but appear grossly intact. 1+ pitting edema on both lower ext Skin: Warm and dry without any rash. Psych: not assessable Results Labs 04/13/24 04:42 04/13/24 04:42 Labs: Short CBC 04/13/24 Range/Units 04:42 WBC 17.8 H (3.6-11.0) Thou/mm3 Hgb 8.4 L (12.0-16.0) g/dL Hct 27.0 L (36.0-46.0) % Plt Count 302 (140-440) Thou/mm3 BMP 04/13/24 04:42 Sodium 141 Potassium 3.9 Chloride 102 Carbon Dioxide 21.3 BUN 101 H* Creatinine 7.0 H* D Glucose 346 H Calcium 9.5 Liver Function 04/13/24 Range/Units 04:42 Total Bilirubin 0.2 L (0.3-1.2) mg/dL AST 14 (0-34) U/L ALT 11 (10-49) U/L Alkaline Phosphatase 87 (46-116) U/L Albumin 3.4 (3.4-4.8) gm/dL ABG Interpretation ABG results: 04/05/24 04/06/24 04/06/24 13:11 05:17 13:37 ABG pH 7.23 L 7.23 L ABG pCO2 39 31 L ABG pO2 54 L* 70 L ABG HCO3 16 L 13 L ABG O2 Saturation 86 L 92 ABG Base Excess -11 L -13 L VBG pH 7.23 L VBG pCO2 34 L VBG pO2 35 VBG Base Excess -13 L 04/06/24 04/07/24 04/08/24 16:56 12:14 14:46 ABG pH 7.42 D 7.39 7.36 ABG pCO2 35 40 44 ABG pO2 69 L 79 L 40 L* D ABG HCO3 23 24 25 ABG O2 Saturation 94 94 71 L ABG Base Excess -2 -1 -1 VBG pH VBG pCO2 VBG pO2 VBG Base Excess 04/08/24 04/08/24 04/10/24 16:20 17:19 09:05 ABG pH 7.34 L 7.35 Cancelled ABG pCO2 46 45 Cancelled ABG pO2 36 L* 113 H D Cancelled ABG HCO3 25 25 Cancelled ABG O2 Saturation 63 L 97 Cancelled ABG Base Excess -1 -1 Cancelled VBG pH VBG pCO2 VBG pO2 VBG Base Excess 04/10/24 04/10/24 04/10/24 09:41 11:45 14:26 ABG pH 7.10 L* D 7.12 L* 7.20 L ABG pCO2 75 H* D 73 H* 58 H D ABG pO2 71 L D 75 L 78 L ABG HCO3 23 24 23 ABG O2 Saturation 89 L 90 L 93 ABG Base Excess -7 L -6 L -5 L VBG pH VBG pCO2 VBG pO2 VBG Base Excess 04/10/24 04/11/24 04/11/24 15:21 05:29 17:04 ABG pH 7.25 L 7.40 D 7.39 ABG pCO2 52 H 40 D 40 ABG pO2 90 93 74 L ABG HCO3 23 25 24 ABG O2 Saturation 95 98 93 ABG Base Excess -5 L 0 -1 VBG pH VBG pCO2 VBG pO2 VBG Base Excess 04/12/24 04/12/24 05:23 11:35 ABG pH 7.41 7.40 ABG pCO2 39 40 ABG pO2 147 H D 91 D ABG HCO3 25 25 ABG O2 Saturation 98 96 ABG Base Excess 0 0 VBG pH VBG pCO2 VBG pO2 VBG Base Excess Quality Measures Quality Measures VTE prophylaxis Advance care planning discussed with:: other Medications Home Medications and Allergies Home Medications ?Medication ?Instructions ?Recorded ?Confirmed ?Type omeprazole 20 mg capsule,delayed 20 mg PO QDAY GERD ## 0 06/06/15 03/20/24 History release (Prilosec) insulin glargine 100 unit/mL (3 10 unit subcut QDAY 03/20/24 History mL) subcutaneous pen (Basaglar KwikPen U-100 Insulin) insulin lispro 100 unit/mL 24 unit subcut TID 01/07/20 03/20/24 History subcutaneous pen (Admelog SoloStar U-100 Insulin lispro) acetaminophen 325 mg capsule 650 mg PO TID PRN Pain 04/07/24 History benazepril 40 mg tablet 40 mg PO DAILY 12/26/2106/26 History ergocalciferol (vitamin D2) 1,250 1,250 mcg PO QWEEK 1 03/20/24 History mcg (50,000 unit) capsule linaclotide 72 mcg capsule 72 mcg PO QDAY 12/26/21 History (Linzess) metformin 1,000 mg tablet 1,000 mg PO BID 12/26/2106/26 History rosuvastatin 40 mg tablet 40 mg PO QDAY 12/26/2103/20 History amlodipine 10 mg tablet 10 mg PO QDAY 04/07/2404/07 History furosemide 20 mg tablet 20 mg PO BID 04/07/24 History metoprolol tartrate 100 mg tablet 100 mg PO BID 04/07/24 History Allergies Allergy/AdvReac Type Severity Reaction Status Date / Time No Known Allergies Allergy Verified 03/20/24 15:08 Visit Medications Acetaminophen (Acetaminophen 325 Mg Tablet) 650 mg PO Q6H PRN PRN Reason: PAIN SCALE 1-3 (mild Stop: 05/05/24 23:05 Acetaminophen (Acetaminophen 325 Mg Tablet) 650 mg PO Q6H PRN PRN Reason: Fever >100 Stop: 05/05/24 23:05 Albuterol/Ipratropium (Albuterol/Ipratropium (Duoneb) Rt Princess 3 Ml Nebu) 3 ml INH Q4HRRT [facility] Stop: 05/10/24 11:44 Last Admin: 04/13/24 10:27 Dose: 3 ml Aspirin (Aspirin 325 Mg Tablet) 325 mg NG QDAY [facility] Stop: 05/12/24 10:14 Last Admin: 04/12/24 10:26 Dose: 325 mg Atorvastatin Calcium (Atorvastatin Calcium 20 Mg Tablet) 80 mg NG HS [facility] Stop: 05/11/24 20:59 Last Admin: 04/12/24 20:21 Dose: 80 mg Calcium Carbonate (Calcium Carbonate 600 Mg Tablet) 600 mg PO BID [facility] Stop: 05/06/24 14:44 Last Admin: 04/13/24 08:49 Dose: 600 mg Clopidogrel Bisulfate (Clopidogrel Bisulfate 75 Mg Tablet) 75 mg NG QDAY [facility] Stop: 05/12/24 08:59 Last Admin: 04/12/24 10:10 Dose: 75 mg Dextrose (Dextrose 50%-Water Inj 50 Ml Syringe) 25 ml IV Q15MIN PRN PRN Reason: BG 50-70 responsive npo pt Stop: 05/07/24 10:51 Dextrose (Dextrose 50%-Water Inj 50 Ml Syringe) 50 ml IV Q15MIN PRN PRN Reason: BG <50 OR BG <70 & pt unresponsive Stop: 05/07/24 10:51 Glucagon (Glucagon Inj 1 Mg Vial) 1 mg IM Q15MIN PRN PRN Reason: BG <70, and no IV access Heparin Sodium (Porcine) (Heparin Sod Inj 1000 Unit/Ml Vial 10 Ml) 3,300 unit INDWELLCAT PRN PRN PRN Reason: DIALYSIS Stop: 04/20/24 15:02 Last Admin: 04/10/24 20:13 Dose: 3,300 unit Heparin Sodium (Porcine) (Heparin Sod Inj 5000 Unit/Ml Vial) 5,000 unit SC Q8HR [facility] Stop: 04/23/24 07:59 Last Admin: 04/13/24 06:06 Dose: 5,000 unit Albumin Human (Albuminar-25 Ivpb) 25 gm in 100 mls @ 100 mls/min IV PRN PRN PRN Reason: DIALYSIS Last Admin: 04/13/24 08:21 Dose: 100 mls/min Dexmedetomidine/Sodium Chloride (Precedex Ivpb) 200 mcg in 50 mls @ 5.31 mls/hr IV .Q9H25M PRN; Protocol PRN Reason: Per PROTOCOL Stop: 05/08/24 09:16 Last Titration: 04/11/24 05:00 Dose: 0 mcg/kg/hr, 0 mls/hr Norepinephrine/Dextrose (Levophed In D5w 8mg/250ml) 8 mg in 250 mls @ 9.956 mls/hr IV .Q24H PRN; Protocol PRN Reason: PER PROTOCOL Stop: 05/08/24 09:52 Last Titration: 04/13/24 09:00 Dose: 0.03 mcg/kg/min, 5.974 mls/hr Methylprednisolone Sodium Succinate 250 mg/ Sodium Chloride 104 mls @ 104 mls/hr IV Q6HR [facility] Stop: 04/16/24 11:59 Last Admin: 04/10/24 13:27 Dose: Not Given Fentanyl Citrate (Sublimaze Inj 2,500 Mcg/250 Ml Bag) 2,500 mcg in 250 mls @ 2.5 mls/hr IV .Q24H PRN; Protocol PRN Reason: PER PROTOCOL Stop: 04/15/24 09:46 Propofol (Diprivan Ivpb) 1,000 mg in 100 mls @ 2.955 mls/hr IV .Q24H PRN; Protocol PRN Reason: PER PROTOCOL Stop: 05/10/24 09:49 Valproic Acid 750 mg/ Sodium (Chloride) 57.5 mls @ 55 mls/hr IV Q8HR [facility] Stop: 05/08/24 21:59 Last Admin: 04/13/24 05:20 Dose: 55 mls/hr Phenylephrine HCl 40 mg/ (Sodium Chloride) 100 mls @ 1.422 mls/hr IV .Q24H PRN; Protocol PRN Reason: Per Cardiogenic Protocol Stop: 05/11/24 20:10 Meropenem 500 mg/ Sodium (Chloride) 50 mls @ 100 mls/hr IV QDAY [facility] Stop: 04/20/24 09:59 Insulin Glargine (Insulin Glargine (Lantus) 5 Unit/0.05 Ml (Per 5 Units)) 50 unit SC QDAY [facility] Stop: 05/12/24 10:29 Last Admin: 04/13/24 08:50 Dose: 50 unit Insulin Human Lispro (Insulin Lispro (Admelog) 1 Unit/0.01 Ml Unit) 0 unit SC Q4HR [facility]; Protocol Stop: 05/10/24 13:59 Last Admin: 04/13/24 10:20 Dose: 3 unit Labetalol HCl (Labetalol Inj 5 Mg/Ml Vial 20 Ml) 10 mg IVP X1 PRN PRN Reason: BP >220/110 Stop: 05/05/24 23:54 Lidocaine HCl (Lidocaine Inj Pf 1% 5 Ml Vial) 9 ml INFL X1 PRN; Protocol PRN Reason: LOCAL ANESTHESIA Metoprolol Succinate (Metoprolol Succinate Xl 25 Mg Tabcr) 50 mg GT QDAY [facility] Stop: 05/12/24 18:59 Last Admin: 04/12/24 20:15 Dose: 50 mg Ondansetron HCl (Ondansetron Inj 2 Mg/Ml Inj 2 Ml) 4 mg IV Q6H PRN; Protocol PRN Reason: NAUSEA OR VOMITING Stop: 05/05/24 23:05 Pantoprazole Sodium (Pantoprazole Inj 40 Mg Vial) 40 mg IVP QDAY [facility] Stop: 05/06/24 08:59 Last Admin: 04/13/24 08:50 Dose: 40 mg Pharmacy Consult (Pharmacy Renal Dose Adjustment 1 Ea) 1 each XX QDAY PRN PRN Reason: protocol Stop: 05/08/24 08:59 Discontinued Medications Acetaminophen (Acetaminophen Supp 650 Mg Supp) 650 mg DE X1 ONE Stop: 04/06/24 18:44 Last Admin: 04/06/24 18:49 Dose: 650 mg Hydrocodone Bitart/Acetaminophen (Hydrocodone/Apap 10/325 Tab) 1 tab PO Q4HR PRN PRN Reason: PAIN SCALE 7-10 (Severe Stop: 04/10/24 23:05 Albuterol/Ipratropium (Albuterol/Ipratropium (Duoneb) Rt Princess 3 Ml Nebu) 3 ml INH Q6HRRT [facility] Stop: 05/06/24 00:59 Last Admin: 04/10/24 06:51 Dose: 3 ml Amlodipine Besylate (Amlodipine Besylate 2.5 Mg Tablet) 2.5 mg PO QDAY [facility] Stop: 05/13/24 08:59 Aspirin (Aspirin Ec 81 Mg Tabec) 81 mg PO QDAY [facility] Stop: 05/06/24 08:59 Last Admin: 04/06/24 15:41 Dose: Not Given Aspirin (Aspirin 300 Mg Supp) 300 mg DE QDAY [facility] Stop: 05/06/24 12:14 Last Admin: 04/12/24 11:29 Dose: Not Given Atorvastatin Calcium (Atorvastatin Calcium 20 Mg Tablet) 80 mg PO [facility] Stop: 05/06/24 20:59 Last Admin: 04/10/24 20:02 Dose: 80 mg Azithromycin (Azithromycin 250 Mg Tablet) 500 mg PO X1 ONE Stop: 04/05/24 17:41 Last Admin: 04/05/24 19:34 Dose: 500 mg Bumetanide (Bumetanide Inj 0.25 Mg/Ml Vial 4 Ml) 2 mg IVP X1 ONE Stop: 04/09/24 12:10 Last Admin: 04/09/24 12:46 Dose: 2 mg Clopidogrel Bisulfate (Clopidogrel Bisulfate 75 Mg Tablet) 75 mg PO QDAY [facility] Stop: 05/10/24 19:14 Last Admin: 04/11/24 08:07 Dose: 75 mg Diazepam (Diazepam Inj 5 Mg/Ml Vial 2 Ml) 2 mg IVP X1 ONE Stop: 04/07/24 12:11 Last Admin: 04/07/24 12:17 Dose: 2 mg Epoetin Go (Epoetin Go-Epbx Inj 10,000 Unit/Ml Vial (Esrd)) 10,000 unit SC X1 ONE Stop: 04/08/24 10:01 Last Admin: 04/08/24 13:57 Dose: 10,000 unit Epoetin Go (Epoetin Go-Epbx Inj 10,000 Unit/Ml Vial (Non-Esrd)) 10,000 unit SC X1 ONE Stop: 04/10/24 09:01 Last Admin: 04/10/24 19:30 Dose: 10,000 unit Fentanyl Citrate (Fentanyl Cit Inj 50 Mcg/Ml Amp 2ml) 100 mcg IV X1 ONE Stop: 04/10/24 09:47 Last Admin: 04/10/24 09:57 Dose: 100 mcg Furosemide (Furosemide Inj 10 Mg/Ml 4ml Vial) 40 mg IVP X1 ONE Stop: 04/05/24 23:07 Last Admin: 04/05/24 23:45 Dose: 40 mg Furosemide (Furosemide Inj 10 Mg/Ml 4ml Vial) 40 mg IVP X1 ONE Stop: 04/06/24 23:12 Last Admin: 04/06/24 23:25 Dose: 40 mg Haloperidol Lactate (Haloperidol Lact Inj 5 Mg/Ml Vial) 2.5 mg IV X1 ONE Stop: 04/06/24 23:13 Last Admin: 04/06/24 23:24 Dose: 2.5 mg Haloperidol Lactate (Haloperidol Lact Inj 5 Mg/Ml Vial) 2 mg IV X1 ONE Stop: 04/07/24 15:25 Last Admin: 04/09/24 10:20 Dose: Not Given Haloperidol Lactate (Haloperidol Lact Inj 5 Mg/Ml Vial) 2.5 mg IV X1 ONE Stop: 04/07/24 15:33 Last Admin: 04/07/24 17:20 Dose: 2.5 mg Heparin Sodium (Beef Lung) (Heparin Sod Lock Syr 100 Unit/Ml) 500 unit INTRACATH X1 ONE Stop: 04/06/24 11:01 Last Admin: 04/06/24 11:00 Dose: 500 unit Heparin Sodium (Porcine) (Heparin Sod Inj 5000 Unit/Ml Vial) 5,000 unit SC Q8HR [facility] Stop: 04/20/24 05:59 Heparin Sodium (Porcine) (Heparin Sod Inj 5000 Unit/Ml Vial 10 Ml) 3,300 unit INTRACATH X1 ONE Stop: 04/06/24 11:27 Last Admin: 04/06/24 11:35 Dose: 3,300 unit Hydralazine HCl (Hydralazine Inj 20 Mg/Ml Vial) 10 mg IV X1 ONE Stop: 04/10/24 15:58 Last Admin: 04/10/24 16:04 Dose: 10 mg Sodium Chloride (Ns) 1,000 mls @ 999 mls/hr IV .Q1H1M ONE Stop: 04/05/24 15:19 Last Infusion: 04/05/24 19:30 Dose: Infused Ceftriaxone Sodium 1,000 mg/ (Sodium Chloride) 50 mls @ 100 mls/hr IV X1 ONE Stop: 04/05/24 14:55 Last Infusion: 04/05/24 16:10 Dose: Infused Sodium Chloride (Ns) 1,000 mls @ 999 mls/hr IV .Q1H1M ONE Stop: 04/05/24 18:37 Last Admin: 04/05/24 19:34 Dose: Not Given Ceftriaxone Sodium/Dextrose (Rocephin/D5w 1gm Iv Premix) 50 mls @ 100 mls/hr IV QDAY [facility] Stop: 04/13/24 08:59 Last Infusion: 04/07/24 05:12 Dose: Infused Azithromycin 250 mg/ Sodium (Chloride) 250 mls @ 250 mls/hr IV HS [facility] Stop: 04/13/24 20:59 Cefepime HCl 2 gm/ Sodium (Chloride) 50 mls @ 100 mls/hr IV Q12HR [facility] Stop: 04/13/24 18:45 Last Admin: 04/07/24 08:50 Dose: Not Given Doxycycline Hyclate 100 mg/ (Sodium Chloride) 100 mls @ 100 mls/hr IV BID [facility] Stop: 04/13/24 20:59 Last Admin: 04/09/24 10:17 Dose: Not Given Acetaminophen (Ofirmev Inj) 1,000 mg in 100 mls @ 250 mls/hr IV Q6HR [facility] Stop: 04/08/24 00:23 Last Admin: 04/07/24 23:49 Dose: 250 mls/hr Cefepime HCl 2 gm/ Sodium (Chloride) 50 mls @ 100 mls/hr IV QDAY [facility] Stop: 04/15/24 08:59 Calcium Gluconate/Sodium Chloride (Calcium Gluc/Ns 1000mg Ivpb) 1,000 mg in 50 mls @ 50 mls/hr IV X1 ONE Stop: 04/07/24 13:08 Last Admin: 04/07/24 13:21 Dose: 50 mls/hr Cefepime HCl 2 gm/ Sodium (Chloride) 50 mls @ 100 mls/hr IV Q12HR [facility] Stop: 04/07/24 13:29 Last Admin: 04/07/24 13:02 Dose: 100 mls/hr Cefepime HCl 2 gm/ Sodium (Chloride) 50 mls @ 100 mls/hr IV QDAY [facility] Stop: 04/15/24 08:59 Last Admin: 04/10/24 19:07 Dose: Not Given Magnesium Sulfate (Magnesium Sulfate Ivpb) 4 gm in 50 mls @ 12.5 mls/hr IV X1 ONE Stop: 04/07/24 17:52 Last Admin: 04/07/24 14:39 Dose: 12.5 mls/hr Valproic Acid 500 mg/ Sodium (Chloride) 55 mls @ 110 mls/hr IV X1 ONE Stop: 04/07/24 18:44 Last Admin: 04/09/24 10:21 Dose: Not Given Valproic Acid 500 mg/ Sodium (Chloride) 55 mls @ 110 mls/hr IV X1 ONE Stop: 04/07/24 19:14 Last Admin: 04/07/24 18:47 Dose: 110 mls/hr Valproic Acid 500 mg/ Sodium (Chloride) 55 mls @ 55 mls/hr IV Q8HR [facility] Stop: 05/08/24 05:59 Last Admin: 04/08/24 14:57 Dose: 55 mls/hr Doxycycline Hyclate 100 mg/ (Sodium Chloride) 100 mls @ 100 mls/hr IV BID [facility] Stop: 04/13/24 20:59 Last Admin: 04/11/24 06:47 Dose: Not Given Valproic Acid 750 mg/ Sodium (Chloride) 57.5 mls @ 55 mls/hr IV Q8HR [facility] Stop: 05/08/24 21:59 Last Admin: 04/11/24 05:03 Dose: 55 mls/hr Valproic Acid 500 mg/ Sodium (Chloride) 55 mls @ 110 mls/hr IV X1 ONE Stop: 04/08/24 18:44 Last Admin: 04/08/24 18:27 Dose: 110 mls/hr Vancomycin/Sodium Chloride (Vancomycin/Ns 1 Gm Ivpb) 200 mls @ 120 mls/hr IV X1 ONE Stop: 04/10/24 11:39 Last Admin: 04/10/24 13:12 Dose: 120 mls/hr Lactated Ringer's (Lactated Ringers) 1,000 mls @ 999 mls/hr IV .Q1H1M [facility] Stop: 04/10/24 10:56 Last Admin: 04/10/24 13:13 Dose: Not Given Ampicillin Sodium 2,000 mg/ (Sodium Chloride) 100 mls @ 200 mls/hr IV [id number] [facility] Stop: 04/17/24 15:59 Last Infusion: 04/10/24 21:49 Dose: Infused Potassium Chloride (Kcl Ivpb) 10 meq in 100 mls @ 100 mls/hr IV X1 ONE Stop: 04/11/24 00:15 Last Infusion: 04/11/24 00:33 Dose: Infused Cefepime HCl 1 gm/ Sodium (Chloride) 50 mls @ 100 mls/hr IV X1 ONE Stop: 04/11/24 09:29 Last Admin: 04/11/24 09:40 Dose: 100 mls/hr Cefepime HCl 1 gm/ Sodium (Chloride) 50 mls @ 100 mls/hr IV [id number] [facility]; Protocol Stop: 04/17/24 15:59 Vancomycin/Sodium Chloride (Vancomycin/Ns 500 Mg Ivpb) 100 mls @ 120 mls/hr IV X1 ONE Stop: 04/11/24 10:49 Last Admin: 04/11/24 10:05 Dose: 120 mls/hr Amiodarone HCl/Dextrose (Nexterone Ivpb) 150 mg in 100 mls @ 600 mls/hr IV .Q10M [facility] Stop: 04/11/24 19:57 Last Admin: 04/11/24 19:55 Dose: 600 mls/hr Amiodarone HCl/Dextrose (Nexterone Ivpb) 360 mg in 200 mls @ 33.333 mls/hr IV .Q6H [facility] Stop: 04/12/24 01:47 Last Admin: 04/11/24 20:06 Dose: 33.333 mls/hr Amiodarone HCl/Dextrose (Nexterone Ivpb) 360 mg in 200 mls @ 16.667 mls/hr IV .Q12H [facility] Stop: 04/13/24 01:47 Last Admin: 04/12/24 14:12 Dose: 16.667 mls/hr Magnesium Sulfate (Magnesium Sulfate Ivpb) 2 gm in 50 mls @ 25 mls/hr IV X1 ONE Stop: 04/11/24 21:51 Last Admin: 04/11/24 20:08 Dose: 25 mls/hr Influenza Virus Vaccine Quadrival (Influenza Virus Quadrivalent 0.5 Ml Syringe) 0.5 ml IMi .ONCE ONE Stop: 04/07/24 12:01 Last Admin: 04/09/24 10:18 Dose: Not Given Insulin Glargine (Insulin Glargine (Lantus) 5 Unit/0.05 Ml (Per 5 Units)) 6 unit SC QDAY [facility] Stop: 05/06/24 12:14 Last Admin: 04/07/24 08:50 Dose: Not Given Insulin Glargine (Insulin Glargine (Lantus) 5 Unit/0.05 Ml (Per 5 Units)) 6 unit SC QAM [facility] Stop: 05/08/24 08:59 Last Admin: 04/09/24 10:17 Dose: Not Given Insulin Glargine (Insulin Glargine (Lantus) 5 Unit/0.05 Ml (Per 5 Units)) 16 unit SC X1 ONE Stop: 04/08/24 09:21 Last Admin: 04/09/24 10:17 Dose: Not Given Insulin Glargine (Insulin Glargine (Lantus) 5 Unit/0.05 Ml (Per 5 Units)) 6 unit SC QAM [facility] Stop: 05/08/24 08:59 Insulin Glargine (Insulin Glargine (Lantus) 5 Unit/0.05 Ml (Per 5 Units)) 10 unit SC QAM [facility] Stop: 05/09/24 08:59 Last Admin: 04/09/24 09:15 Dose: 10 unit Insulin Glargine (Insulin Glargine (Lantus) 5 Unit/0.05 Ml (Per 5 Units)) 15 unit SC QAM [facility] Stop: 05/10/24 08:59 Insulin Glargine (Insulin Glargine (Lantus) 5 Unit/0.05 Ml (Per 5 Units)) [facility] Stop: 05/10/24 08:59 Last Admin: 04/11/24 08:11 Dose: 20 unit Insulin Glargine (Insulin Glargine (Lantus) 5 Unit/0.05 Ml (Per 5 Units)) 10 unit SC QDAY ONE Stop: 04/10/24 07:37 Last Admin: 04/11/24 06:47 Dose: Not Given Insulin Glargine (Insulin Glargine (Lantus) 5 Unit/0.05 Ml (Per 5 Units)) 20 unit SC X1 ONE Stop: 04/10/24 17:23 Last Admin: 04/10/24 19:09 Dose: 20 unit Insulin Glargine (Insulin Glargine (Lantus) 5 Unit/0.05 Ml (Per 5 Units)) 20 unit SC X1 ONE Stop: 04/11/24 10:04 Last Admin: 04/11/24 10:13 Dose: 20 unit Insulin Glargine (Insulin Glargine (Lantus) 5 Unit/0.05 Ml (Per 5 Units)) 40 unit SC [facility] Stop: 05/12/24 08:59 Last Admin: 04/12/24 11:29 Dose: Not Given Insulin Glargine (Insulin Glargine (Lantus) 5 Unit/0.05 Ml (Per 5 Units)) 50 unit [facility] Stop: 05/13/24 08:59 Insulin Glargine (Insulin Glargine (Lantus) 5 Unit/0.05 Ml (Per 5 Units)) 10 unit SC X1 ONE Stop: 04/13/24 09:48 Last Admin: 04/13/24 10:17 Dose: Not Given Insulin Human Lispro (Insulin Lispro (Admelog) 1 Unit/0.01 Ml Unit) 0 unit SC Q6HR [facility]; Protocol Stop: 05/07/24 11:59 Last Admin: 04/09/24 06:17 Dose: 2 unit Insulin Human Lispro (Insulin Lispro (Admelog) 1 Unit/0.01 Ml Unit) 0 unit SC Q6HR [facility]; Protocol Stop: 05/07/24 11:59 Last Admin: 04/10/24 13:08 Dose: 6 unit Insulin Human Lispro (Insulin Lispro (Admelog) 1 Unit/0.01 Ml Unit) 20 unit SC X1 ONE Stop: 04/10/24 14:42 Last Admin: 04/11/24 06:48 Dose: Not Given Insulin Human Lispro (Insulin Lispro (Admelog) 1 Unit/0.01 Ml Unit) 30 unit SC X1 ONE Stop: 04/10/24 14:55 Last Admin: 04/10/24 15:01 Dose: 30 unit Insulin Human Lispro (Insulin Lispro (Admelog) 1 Unit/0.01 Ml Unit) 20 unit SC X1 ONE Stop: 04/10/24 19:00 Last Admin: 04/10/24 19:10 Dose: 20 unit Insulin Human Lispro (Insulin Lispro (Admelog) 1 Unit/0.01 Ml Unit) 15 unit SC X1 ONE Stop: 04/10/24 23:16 Last Admin: 04/11/24 00:30 Dose: 15 unit Insulin Human Lispro (Insulin Lispro (Admelog) 1 Unit/0.01 Ml Unit) 20 unit SC X1 ONE Stop: 04/11/24 02:13 Last Admin: 04/11/24 02:32 Dose: 20 unit Insulin Human Lispro (Insulin Lispro (Admelog) 1 Unit/0.01 Ml Unit) 20 unit SC X1 ONE Stop: 04/11/24 16:32 Last Admin: 04/11/24 16:44 Dose: 20 unit Insulin Human Lispro (Insulin Lispro (Admelog) 1 Unit/0.01 Ml Unit) 20 unit SC X1 ONE Stop: 04/12/24 12:17 Last Admin: 04/12/24 12:33 Dose: 20 unit Insulin Human Regular (Insulin Hum Regular 1 Unit/0.01 Ml (Per Unit)) 10 unit IV X1 ONE Stop: 04/10/24 09:17 Last Admin: 04/11/24 06:47 Dose: Not Given Insulin Human Regular (Insulin Hum Regular 1 Unit/0.01 Ml (Per Unit)) 15 unit IV X1 ONE Stop: 04/10/24 09:23 Last Admin: 04/10/24 09:30 Dose: 15 unit Ketorolac Tromethamine (Ketorolac Inj 60 Mg/2 Ml Vial) 30 mg IM X1 ONE Stop: 04/07/24 08:02 Last Admin: 04/07/24 08:40 Dose: Not Given Labetalol HCl (Labetalol Inj 5 Mg/Ml Vial 20 Ml) 10 mg IVP X1 ONE Stop: 04/10/24 17:00 Last Admin: 04/10/24 17:59 Dose: Not Given Lidocaine HCl (Lidocaine Hcl 1% 20 Ml Vial) 20 ml INFL X1 ONE Stop: 04/10/24 13:09 Last Admin: 04/10/24 13:48 Dose: 20 ml Lorazepam (Lorazepam 2 Mg/Ml Vial) 1 mg IV X1 ONE Stop: 04/07/24 12:01 Last Admin: 04/07/24 13:06 Dose: Not Given Lorazepam (Lorazepam 2 Mg/Ml Vial) 2 mg IVP PRN ONE Stop: 04/08/24 18:44 Last Admin: 04/08/24 23:16 Dose: 2 mg Lorazepam (Lorazepam 2 Mg/Ml Vial) 2 mg IVP X1 ONE Stop: 04/09/24 16:54 Last Admin: 04/09/24 17:30 Dose: 2 mg Methylprednisolone Sodium Succinate (Methylprednisolone Sod Succ 62.5 Mg/Ml 2ml Vial) 250 mg IVP Q6HR DELMY Stop: 04/16/24 11:59 Metoprolol Tartrate (Metoprolol Tartrate Inj 1 Mg/Ml Amp 5 Ml) 2.5 mg IVP X1 ONE Stop: 04/11/24 19:56 Last Admin: 04/11/24 20:05 Dose: 2.5 mg Oxycodone/Acetaminophen (Oxycodone/Apap 5/325 Tablet) 1 tab PO Q6H PRN PRN Reason: PAIN SCALE 4-6 (Moderate Stop: 04/10/24 23:05 Pharmacy Consult (Pharmacy Renal Dose Adjustment 1 Ea) 1 each XX QDAY DELMY Stop: 05/08/24 08:59 Last Admin: 04/09/24 09:06 Dose: Not Given Pharmacy Consult (Vancomycin Pharmacy To Dose 1 Each Each) 1 each IV QDAY PRN PRN Reason: CONSULT Stop: 05/10/24 09:29 Pharmacy Consult (Vancomycin Pharmacy To Dose 1 Each Each) 1 each IV QDAY PRN PRN Reason: PROTOCOL Stop: 05/10/24 13:14 Pharmacy Consult (Vancomycin Pharmacy To Dose 1 Each Each) 1 each IV QDAY PRN PRN Reason: PROTOCOL Stop: 05/11/24 08:59 Potassium Chloride (Potassium Chloride 10% 20 Meq/15 Ml Udc) 40 meq GT X1 ONE Stop: 04/11/24 20:18 Last Admin: 04/11/24 21:39 Dose: 40 meq Rocuronium [place] (Rocuronium Inj 10 Mg/Ml Vial 10 Ml) 90 mg IVP X1 ONE Stop: 04/10/24 09:47 Last Admin: 04/10/24 09:57 Dose: 90 mg Sodium Bicarbonate (Sodium Bicarb Inj 8.4% Syr 50 Ml Syringe) 50 ml IV X1 ONE Stop: 04/06/24 09:01 Last Admin: 04/06/24 09:52 Dose: 50 ml Sodium Chloride (Sodium Chloride Rt 10% 15 Ml Nebu) 5 ml INH X1 ONE Stop: 04/06/24 00:08 Last Admin: 04/06/24 01:59 Dose: Not Given Sodium Chloride (Sodium Chloride Rt 10% 15 Ml Nebu) 5 ml INH X1 ONE Stop: 04/10/24 10:18 Last Admin: 04/11/24 06:48 Dose: Not Given Tuberculin PPD (Tuberculin Ppd Inj 5 Unit/0.1 Ml Dose) 5 unit ID X1 ONE Stop: 04/06/24 07:54 Last Admin: 04/06/24 12:43 Dose: 5 unit Valproic Acid (Valproate Sod Inj 100 Mg/Ml Vial 5 Ml) 500 mg IV X1 ONE Stop: 04/07/24 17:58 Last Admin: 04/09/24 10:20 Dose: Not Given Valproic Acid (Valproate Sod Inj 100 Mg/Ml Vial 5 Ml) 500 mg IV Q8HR DELMY Stop: 05/08/24 05:59 Assessment & Plan Plan Summary: This patient is a 64-year-old female with past medical history of CVA in 2018 with residual left-sided deficit, nephrolithiasis, hypertension, hyperlipidemia, type 2 diabetes and anemia requiring transfusion admitted for acute encephalopathy. Patient was upgraded to ICU on 04/08 then downgraded on 04/10. Rapid response was called on 04/10 for desaturation and upgraded again for airway protection requiring rapid sequence intubation. #Acute hypoxic respiratory failure likely due to aspiration pneumonitis #Community-acquired pneumonia versus aspiration pneumonia #Obesity hypoventilation syndrome ?CT chest on admission showed bilateral pneumonia. Chest x-ray was significant for pneumonia. Rapid response was called on 04/10 due to desaturation with suspected aspiration event. Sputum culture showed mixed quentin and blood cultures showed no growth. ?COVID, RSV, flu, cocci IgG/IgM and MRSA was negative Plan ?Follow-up on bronchial lavage and repeat blood cultures ?Continue meropenem until repeat blood cultures come negative for 48 hours ? Follow-up with ESR and CRP ? Procalcitonin is less likely to be sensitive as can be elevated in ANA LAURA/CKD ? Monitor for fever spike and white count elevation ? Hold off steroids #Acute encephalopathy #Likely secondary to possible autoimmune encephalitis versus multiple ischemic strokes #Rule out meningitis ? Patient initially presented with focal neurological deficits including facial droop and slurred speech. Head CT was negative repeat 1 was severely limited due to patient movement. MRI brain showed 12 mm acute infarct on the anterior right brainstem and 14 mm acute infarct in right basal ganglia. Post EEG showed diffuse slowing suggestive of encephalopathy of metabolic versus degenerative versus vascular origin doubt epileptiform waveforms. ? CSF culture showed no growth. Initially antibiotic coverage was given with multiple antibiotics. Plan: ? Neurology is on board ? Continue antiepileptics valproate every 8 hourly ? Follow-up on autoimmune panel and West Nile, cryptococcal studies ? Follow-up on ANCA, ZAINAB, C3 and C4 ? Continue aspirin and Plavix along with statin therapy for ischemic strokes #ANA LAURA on new onset hemodialysis #Nephrolithiasis #History of staghorn calculi #ACS likely NSTEMI # Elevated troponin #A-fib with RVR #Transaminitis #History of type 2 diabetes #HTN #Chronic normocytic anemia Rest of the management as per ICU care team. Plan of care was discussed with ID specialist, Dr Adrian Anthony MD, PGY 2
[2024-04-13] MEDS: HEPARIN SOD INJ 1000 UNIT/ML VIAL 10 ML 3300 UNIT INDWELLCAT (10:53)
[2024-04-13] MEDS: CLOPIDOGREL BISULFATE 75 MG TABLET NG (11:34)
[2024-04-13] MEDS: Aspirin 325 MG TABLET NG (11:34)
[2024-04-13] MEDS: METOPROLOL SUCCINATE XL 25 MG TABCR 50 MG GT (11:35)
[2024-04-13] MEDS: MEROPENEM INJ 500 MG in SODIUM CHLORIDE 0.9% (P) 50 ML 100 MG IV (11:36)
--- NOTE | 2024-04-13 12:40 | RESP.EEG ---
eeg completed and waiting to be read. dr patrizia landers
--- NOTE | 2024-04-13 13:38 | ESCONSULT_ITS ---
RE: MANSI GALVIN : 1960 DATE OF CONSULTATION: 04/13/2024 REFERRING PHYSICIAN: Dr. Bardales and Dr. Contreras, hospitalist. REASON FOR CONSULTATION: Respiratory failure. The patient is on Merrem with negative cultures. HISTORY OF PRESENT ILLNESS: The patient is a 64-year-old with known proteinuria and presumed renal insufficiency on the basis of diabetes, although it seems to be fairly relatively acute. Troponins have been elevated at times, but looks like more of a troponin leak type situation as they are not strikingly elevated. She is heavyset, which is another challenge. Her urine and blood cultures are negative. UA did show 24 white cells, and 1 on the third and 8 on the second, but it has been more than a week since the initial admission, so whatever prior antibiotics were given have probably been effective. The patient has had low-grade temps and was started on meropenem today. Unfortunately, the fevers may persist and may not be infectious. PAST MEDICAL HISTORY: Include diabetes, acute respiratory failure, acute kidney injury. PAST SURGICAL HISTORY: Includes dialysis catheter placement. There are no other surgeries noted. I reviewed the record and did not find any other surgeries overtly. There is a surgical hx that is noted couple of times on the record. Dr. Pinto has seen her, The last time was a couple of years ago in 2021 for recurrent UTI. She has medical problem include hypertension, obesity, diabetes as mentioned. She has a urinary stent in place. Dr. Pinto had seen her briefly, but had planned to get some followup records, but I am not sure those were ever given. The patient was given p.o. Macrobid 5 days b.i.d., then one day is once daily as prophylaxis. I do not know if this is a contributor or not that was in 2021. Macrobid can cause some fibrotic change, but it is not usually in the kidneys. Her white count also went up from 9.9 to 15 to 17.8 over the last couple of days. This is a cause of some concern, although she apparently has also been on some steroids, which can also raise the white count. She presumptively has encephalitis on the basis of autoimmune disease, although this is also debatable as there are no tests to prove that. We will get some tests tomorrow. I will check on her again on Saturday. DT: 10:59:40 TT: 12:11:00 Ref: [id number] - TID: [id number] MTDD
[2024-04-13] MEDS: DiphenhydrAMINE ELIX 25 MG/10 ML UDC NG (14:29)
[2024-04-13] MEDS: ACETAMINOPHEN 500 MG TABLET 1000 MG PO (14:29)
[2024-04-13] MEDS: PRE MIXED IV (15:05)
[2024-04-13] MEDS: IMMUNE GLOB GA CA IV (15:05)
[2024-04-13 17:53] LABS: Path Review Blood Smear Sent to Pathologist
--- NOTE | 2024-04-13 18:05 | ESPR_ITS ---
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 Upon arrival to the ED, stroke alert was called. CT head negative, however patient was outside of TNK window. MRI brain recommended but given that patient continues to have altered mental status and cannot follow commands in addition to requiring HFNC, will not be able to obtain. Echo obtained on 04/05, negative bubble study and EF 55 to 60%. Carotid Doppler was poor study due to lack of patient cooperation. Labs obtained in ED showed creatinine of 5.4, which is significantly elevated from baseline of 1.0. Thus, TDC was placed and patient has since received 2 dialysis sessions (04/06, 04/07), however has not had any improvement in her mental status. Throughout hospital course, patient has had 3 rapid responses. On 04/06 rapid response for fever of 103 ?F, 04/07 for episode of twitching on right side of face, and again on 04/07 for episode of apnea for few seconds after dose of lorazepam. ICU was consulted given that patient has had increased oxygen requirements and altered mental status and evaluated if patient will require closer monitoring to protect her airways. 04/08: No acute overnight events reported. She was noted to have increased oxygen requirements after coming back from repeat CT head. She was originally on HFNC at 30 L/min, 50% FiO2 and is currently on 30 L/min and now 80% FiO2. Repeat CT head showed no gross hemorrhage or mass effect but patient motion is significantly degraded image quality. Patient noted to have less spontaneous movements compared to yesterday and contacted MRI regarding possibility of obtaining imaging. However, they will not be able to accommodate patients on high flow nor on BiPAP. Underwent third session of hemodialysis today, with removal of 3 L of fluid. Blood pressure dropped to 86/48 and was given Levophed. 04/09: No acute overnight events reported. Only had 30 cc of urine output the entire shift, 2.5 cc/h. Did not require Levophed or Precedex. Underwent lumbar puncture and evening of 04/08, noted to have opening pressure at 33 cm H2O and elevated protein and glucose. Also had an EEG that showed diffuse slowing, suggestive of diffuse encephalopathy of metabolic versus degenerative versus vascular origin. No epileptic waveforms noted but given that patient's right sided facial twitching and spontaneous movements have improved, will continue with valproate per recs. Neurology also recommended starting 1 g Solu-Medrol daily. Oxygen needs decreased from HFNC to oxy mask, and again attempted to obtain MRI but were unable due to oxy mask and body habitus. NG tube placed to start feeds given the patient has been n.p.o. since admission and will increase glargine from 10 to 15 units to accommodate. 04/10: No acute overnight events reported. At 9:30 AM, rapid response called due to O2 saturation of 86% on 15 L nonrebreather. Suspect possible aspiration event and RT subsequently suctioned with increase in O2 saturation to high 80s on 15 L. Upon assessment, GCS of 3 and determined that patient unable to protect her airways and was upgraded to ICU for RSI. At around 10:30 AM, patient underwent successful RSI. A.M. labs showed glucose of 596 with anion gap of 17 and beta hydroxybutyrate of 2.1, suspect due to recently starting high-dose steroids. Glargine was originally increased to accommodate from 10 to 15 units, but patient will now be started on 20 units glargine daily. ABG obtained prior to intubation showed pH 7.1, pCO2 75, and pO2 71. Repeat after intubation showed pH 7.12, pCO2 73, and pO2 75. Subsequent ABG ordered and will follow-up. Given that patient is now intubated, revisited MRI and we will attempt to obtain again in the afternoon. Will also attempt hemodialysis later today. 04/11: No acute overnight events reported. MRI was obtained on 04/10 that showed acute infarct of anterior right brainstem (pontine level) and acute infarct of right basal ganglia. Also underwent dialysis yesterday but was only able to tolerate 2 hours and 15 minutes with removal of 700 mL due to hypotension (78/41) while on Levophed. Underwent bronchoscopy which showed few areas of submucosal bleeding noted as well as nilson blood throughout most of the airway, however serial lavages returned clear fluid. [place] in evening showed baseline of HR 89, SVI 47, CI 4.2 and HR 86, SVI 43, CI 3.8 after PLR indicating that patient is not fluid responsive. Noted to become agitated in evening (opening eyes and fighting vent) with BP spike to 192/105. Precedex was started and was on for 2 hours and BP resolved without any other intervention. UOP 15 cc entire shift. Spoke to nephrology today and no HD, will reassess tomorrow. Blood sugar better controlled, in 300s. Will increase glargine from 20 to 40 units starting today. Carotid Doppler obtained showing 30 to 50% stenosis of right ICA and 10 to 20% stenosis of left ICA. 04/12: Noted to have new onset A-fib with RVR at 70 p.m. on 04/11 with heart rate in 160s to 170s. Given metoprolol to tartrate 2.5 mg IV x 1, amiodarone bolus, and then amiodarone drip and patient converted to sinus tachycardia. In AM upon evaluation, patient remains in sinus tachycardia. Otherwise, no other overnight events. Did not require pressors or Precedex overnight. UOP noted to be 50 cc per entire shift. Plans to undergo fifth session of hemodialysis tomorrow. Blood sugars remain elevated in low to mid 300s after changing glargine from 20 to 40 units and continues to receive 6 units SSI every 4 hours. Will increase glargine to 50 units daily and continue SSI. Ventilator settings of VT 350, RR 36, PEEP 14, FiO2 45% were changed to RR of 24, PEEP of 10, and FiO2 of 35% given ABG that showed pH 7.41, pCO2 39, and pO2 147. Repeat ABG ordered to assess changes in ventilator settings. Remained afebrile overnight but WBC noted to increase from 9.9 to 15.0. Thus, repeat CXR obtained and showed improvement in bilateral infiltrates paired to previous CXR in 04/10. 04/13: Patient spiked a fever of 106 overnight, with an increasing white count from 9.9-17 in the last 2 days. ABG shows no acidotic/alkalotic pattern. Per neurology recs, will start patient on IVIG, treat for sepsis with unknown source with renal dose meropenem. Will also plan for repeat LP to rule out any inflammation of the spinal cord. Otherwise, patient is more responsive today, with a GCS of 18. Exam Vital Signs Temp Pulse Resp BP Pulse Ox O2 Del Method O2 Flow Rate 100.0 F 84 24 H 93/61 91 L Mechanical Ventilation 13 04/13/24 16:00 04/13/24 16:45 04/13/24 14:24 04/13/24 16:45 04/13/24 16:45 04/13/24 06:01 04/12/24 06:00 FiO2 35 04/13/24 16:00 Narrative Exam General: Mechanically ventilated, not on sedation, not on pressors, not responding to questions/following commands HEENT: NC/AT, mucous membranes moist, bilateral sclera anicteric Cardiovascular: regular rate and rhythm, S1/S2 present, no murmurs appreciated Pulmonary: clear to auscultation bilaterally, no rales/rhonchi/wheezes Abdominal: Obese, soft, no guarding Musculoskeletal: no peripheral edema, dorsalis pedis pulses 2+ Skin: PIV, TDC, acanthosis nigricans in neck Neuro: ? E (3), V (T), M (4) -> GCS 8T ? Cranial reflex, pupillary light reflex, and gag reflex tact ? Babinski: Negative bilaterally Objective Labs 04/13/24 04:42 04/13/24 04:42 Labs: Laboratory Results - last 24 hr 04/08/24 04/08/24 04/13/24 07:10 18:00 04:42 WBC 17.8 H RBC 3.00 L Hgb 8.4 L Hct 27.0 L MCV 90 MCH 28.0 MCHC 31.1 RDW Std Deviation 51.3 H Plt Count 302 Neut % (Auto) 73 Lymph % (Auto) 4 L [place] % (Auto) 13 H Eos % (Auto) 0 Baso % (Auto) 0 Neut # (Auto) 12.9 H Lymph # (Auto) 0.7 L [place] # (Auto) 2.3 H Eos # (Auto) 0.0 Baso # (Auto) 0.0 Immature Gran # (Auto) 1.83 H Absolute Nucleated RBC 0.14 H Immature Gran % 10 H Nucleated RBC % 1 H Smear Path Review Sent to Pathologist Sodium 141 Potassium 3.9 Chloride 102 Carbon Dioxide 21.3 Anion Gap 18 H BUN 101 H* Creatinine 7.0 H* D Estim Creat Clear Calc 8.1 L eGFR 6 L* BUN/Creatinine Ratio 14 Glucose 346 H Calculated Osmolality 326 H Calcium 9.5 Corrected Calcium 10.0 Phosphorus 5.1 Magnesium 3.1 H Total Bilirubin 0.2 L AST 14 ALT 11 Alkaline Phosphatase 87 Total Protein 6.7 Albumin 3.4 Globulin 3.3 Albumin/Globulin Ratio 1.0 L CSF VDRL NON-REACTIVE Valproic Acid 36.9 L ABG Interpretation ABG results: 04/05/24 04/06/24 04/06/24 13:11 05:17 13:37 ABG pH 7.23 L 7.23 L ABG pCO2 39 31 L ABG pO2 54 L* 70 L ABG HCO3 16 L 13 L ABG O2 Saturation 86 L 92 ABG Base Excess -11 L -13 L VBG pH 7.23 L VBG pCO2 34 L VBG pO2 35 VBG Base Excess -13 L 04/06/24 04/07/24 04/08/24 16:56 12:14 14:46 ABG pH 7.42 D 7.39 7.36 ABG pCO2 35 40 44 ABG pO2 69 L 79 L 40 L* D ABG HCO3 23 24 25 ABG O2 Saturation 94 94 71 L ABG Base Excess -2 -1 -1 VBG pH VBG pCO2 VBG pO2 VBG Base Excess 04/08/24 04/08/24 04/10/24 16:20 17:19 09:05 ABG pH 7.34 L 7.35 Cancelled ABG pCO2 46 45 Cancelled ABG pO2 36 L* 113 H D Cancelled ABG HCO3 25 25 Cancelled ABG O2 Saturation 63 L 97 Cancelled ABG Base Excess -1 -1 Cancelled VBG pH VBG pCO2 VBG pO2 VBG Base Excess 04/10/24 04/10/24 04/10/24 09:41 11:45 14:26 ABG pH 7.10 L* D 7.12 L* 7.20 L ABG pCO2 75 H* D 73 H* 58 H D ABG pO2 71 L D 75 L 78 L ABG HCO3 23 24 23 ABG O2 Saturation 89 L 90 L 93 ABG Base Excess -7 L -6 L -5 L VBG pH VBG pCO2 VBG pO2 VBG Base Excess 04/10/24 04/11/24 04/11/24 15:21 05:29 17:04 ABG pH 7.25 L 7.40 D 7.39 ABG pCO2 52 H 40 D 40 ABG pO2 90 93 74 L ABG HCO3 23 25 24 ABG O2 Saturation 95 98 93 ABG Base Excess -5 L 0 -1 VBG pH VBG pCO2 VBG pO2 VBG Base Excess 04/12/24 04/12/24 05:23 11:35 ABG pH 7.41 7.40 ABG pCO2 39 40 ABG pO2 147 H D 91 D ABG HCO3 25 25 ABG O2 Saturation 98 96 ABG Base Excess 0 0 VBG pH VBG pCO2 VBG pO2 VBG Base Excess Quality Measures Quality Measures VTE prophylaxis Advance care planning discussed with:: patient Assessment & Plan Assessment Current Active Medications: Generic Name Dose Route Start Last Admin Trade Name Freq PRN Reason Stop Dose Admin Acetaminophen 650 mg 04/05/24 23:06 Acetaminophen 325 Mg Tablet PO 05/05/24 23:05 Q6H PRN PAIN SCALE 1-3 (mild Acetaminophen 650 mg 04/05/24 23:06 Acetaminophen 325 Mg Tablet PO 05/05/24 23:05 Q6H PRN Fever >100 Acetaminophen 1,000 mg 04/13/24 11:30 04/13/24 14:29 Acetaminophen 500 Mg Tablet PO 04/18/24 11:31 1,000 mg QDAY@1130 DELMY Administration Albuterol/Ipratropium 3 ml 04/10/24 11:45 04/13/24 14:24 Albuterol/Ipratropium (Duoneb) Rt Princess 3 Ml Nebu INH 05/10/24 11:44 3 ml Q4HRRT DELMY Administration Aspirin 325 mg 04/12/24 10:15 04/13/24 11:34 Aspirin 325 Mg Tablet NG 05/12/24 10:14 325 mg QDAY DELMY Administration Atorvastatin Calcium 80 mg 04/11/24 21:00 04/12/24 20:21 Atorvastatin Calcium 20 Mg Tablet NG 05/11/24 20:59 80 mg HS DELMY Administration Calcium Carbonate 600 mg 04/06/24 14:45 04/13/24 08:49 Calcium Carbonate 600 Mg Tablet PO 05/06/24 14:44 600 mg BID DELMY Administration Clopidogrel Bisulfate 75 mg 04/12/24 09:00 04/13/24 11:34 Clopidogrel Bisulfate 75 Mg Tablet NG 05/12/24 08:59 75 mg QDAY DELMY Administration Dextrose 25 ml 04/07/24 10:52 Dextrose 50%-Water Inj 50 Ml Syringe IV 05/07/24 10:51 Q15MIN PRN BG 50-70 responsive npo pt Dextrose 50 ml 04/07/24 10:52 Dextrose 50%-Water Inj 50 Ml Syringe IV 05/07/24 10:51 Q15MIN PRN BG <50 OR BG <70 & pt unresponsive Diphenhydramine HCl 25 mg 04/13/24 11:30 04/13/24 14:29 Diphenhydramine Elix 25 Mg/10 Ml Udc NG 04/18/24 11:31 25 mg QDAY@1130 DELMY Administration Glucagon 1 mg 04/07/24 10:52 Glucagon Inj 1 Mg Vial IM Q15MIN PRN BG <70, and no IV access Heparin Sodium (Porcine) 3,300 unit 04/06/24 15:03 04/13/24 10:53 Heparin Sod Inj 1000 Unit/Ml Vial 10 Ml INDWELLCAT 04/20/24 15:02 3,300 unit PRN PRN Administration DIALYSIS Heparin Sodium (Porcine) 5,000 unit 04/09/24 08:00 04/13/24 14:30 Heparin Sod Inj 5000 Unit/Ml Vial SC 04/23/24 07:59 5,000 unit Q8HR DELMY Administration Albumin Human 25 gm in 100 mls @ 100 mls/min 04/06/24 08:27 04/13/24 08:21 Albuminar-25 Ivpb IV 100 mls/min PRN PRN Administration DIALYSIS Dexmedetomidine/Sodium Chloride 200 mcg in 50 mls @ 5.31 mls/hr 04/08/24 09:17 04/11/24 05:00 Precedex Ivpb IV 05/08/24 09:16 0 mcg/kg/hr .Q9H25M PRN 0 mls/hr Per PROTOCOL Titration Protocol 0.2 MCG/KG/HR Norepinephrine/Dextrose 8 mg in 250 mls @ 9.956 mls/hr 04/08/24 09:53 04/13/24 15:00 Levophed In D5w 8mg/250ml IV 05/08/24 09:52 0 mcg/kg/min .Q24H PRN 0 mls/hr PER PROTOCOL Titration Protocol 0.05 MCG/KG/MIN Methylprednisolone Sodium 104 mls @ 104 mls/hr 04/09/24 12:00 04/10/24 13:27 Succinate 250 mg/ Sodium IV 04/16/24 11:59 Not Given Chloride Q6HR DELMY Fentanyl Citrate 2,500 mcg in 250 mls @ 2.5 mls/hr 04/10/24 09:47 Sublimaze Inj 2,500 Mcg/250 Ml Bag IV 04/15/24 09:46 .Q24H PRN PER PROTOCOL Protocol 25 MCG/HR Propofol 1,000 mg in 100 mls @ 2.955 mls/hr 04/10/24 09:50 Diprivan Ivpb IV 05/10/24 09:49 .Q24H PRN PER PROTOCOL Protocol 5 MCG/KG/MIN Valproic Acid 750 mg/ Sodium 57.5 mls @ 55 mls/hr 04/11/24 14:00 04/13/24 14:41 Chloride IV 05/08/24 21:59 55 mls/hr Q8HR DELMY Administration Phenylephrine HCl 40 mg/ 100 mls @ 1.422 mls/hr 04/11/24 20:11 Sodium Chloride IV 05/11/24 20:10 .Q24H PRN Per Cardiogenic Protocol Protocol 0.1 MCG/KG/MIN Meropenem 500 mg/ Sodium 50 mls @ 100 mls/hr 04/13/24 10:00 04/13/24 11:36 Chloride IV 04/20/24 09:59 100 mls/hr QDAY DELMY Administration Immune Globulin 20 gm/ Immune 250 mls @ 41.667 mls/hr 04/13/24 12:00 04/13/24 15:05 Globulin 5 gm/ IV IV 04/18/24 17:59 41.667 mls/hr Miscellaneous Supplies QDAY@1200 DELMY Administration Insulin Glargine 50 unit 04/12/24 10:30 04/13/24 08:50 Insulin Glargine (Lantus) 5 Unit/0.05 Ml (Per 5 Units) SC 05/12/24 10:29 50 unit QDAY DELMY Administration Insulin Human Lispro 0 unit 04/10/24 14:00 04/13/24 14:35 Insulin Lispro (Admelog) 1 Unit/0.01 Ml Unit SC 05/10/24 13:59 5 unit Q4HR DELMY Administration Protocol Labetalol HCl 10 mg 04/05/24 23:55 Labetalol Inj 5 Mg/Ml Vial 20 Ml IVP 05/05/24 23:54 X1 PRN BP >220/110 Lidocaine HCl 9 ml 04/06/24 11:00 Lidocaine Inj Pf 1% 5 Ml Vial INFL X1 PRN LOCAL ANESTHESIA Protocol Metoprolol Succinate 50 mg 04/12/24 19:00 04/13/24 11:35 Metoprolol Succinate Xl 25 Mg Tabcr GT 05/12/24 18:59 50 mg QDAY DELMY Administration Ondansetron HCl 4 mg 04/05/24 23:06 Ondansetron Inj 2 Mg/Ml Inj 2 Ml IV 05/05/24 23:05 Q6H PRN NAUSEA OR VOMITING Protocol Pantoprazole Sodium 40 mg 04/06/24 09:00 04/13/24 08:50 Pantoprazole Inj 40 Mg Vial IVP 05/06/24 08:59 40 mg QDAY DELMY Administration Pharmacy Consult 1 each 04/09/24 08:54 Pharmacy Renal Dose Adjustment 1 Ea XX 05/08/24 08:59 QDAY PRN protocol Plan Sofiya Vogt is a 64-year-old female with a past medical history of 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 She was upgraded to ICU on 04/08 and then downgraded on 04/10. However, rapid response called on 04/10 for desaturation (see event note for details) and upgraded on 04/10 for airway protection requiring RSI. 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 CT head negative, including repeat although severely limited due to patient movement. MRI/MRA brain: 12 mm acute infarct of the anterior right brainstem (pontine level), 14 mm acute infarct of right basal ganglia. Status post EEG on 04/08: diffuse slowing, suggestive of encephalopathy of metabolic vs degenerative vs vascular origin without epileptic waveforms Status post lumbar puncture on 04/08: glucose 148 H, protein 54 H, WBC 4 wnl, GPC on cultures Carotid Duplex showed 30-50% stenosis of R ICA ? Neurology consulted, appreciate recommendations ? No longer considering steroids ? Valproate IV every 8 hours ? Follow-up autoimmune encephalitis panel, West Nile, HSV, and Cryptococcal studies ? Follow-up ZAINAB, ANCA, C3, C4 ? Follow-up repeat LP results and send outs - Started IVIG at .4gm/kg based on her ideal body weight - Repeat Brain MRI ordered #Ischemic stroke, right brainstem (pontine level), prior basal ganglia #History of stroke with residual left-sided deficits ? Aspirin 325 mg via NG daily ? Clopidogrel 75 mg via NG daily ? Atorvastatin 80 mg via NG daily #? Meningitis-r/o Ceftriaxone and azithromycin (04/05-04/07) Doxycycline (04/07-04/10) Cefepime (04/07-04-10) Ampicillin and vancomycin (04/10-04/11) Unlikely meningitis given only 4 WBCs from lumbar puncture and patient has remained afebrile and no leukocytosis. Will discontinue antibiotics per neurology recommendations. Repeat LP showed no WBCs ? CSF culture: No growth Cardiovascular #ACS, NSTEMI #Elevated troponins-downtrended Elevated on admission, but decreased from 1.3 to 1.2 and were no longer trended. ST depressions seen on telemetry on 04/10 and repeat troponin of 0.64 that increased to 0.98 and plateaued at 1.8. Repeat EKG showed ST depressions in V2- V6 (most prominent in V4-6). ? Cardiology consulted, recommended aspirin, statin, and beta-vero if neurology is in agreement; no heparin drip and no LHC indicated at this time given patient's clinical status ? Troponins plateaued at 1.8 #A-fib with RVR-resolved 04/11, went into a-fib with RVR at 160-170 bpm. Given metoprolol tartrate 2.5 mg IV x 1, amiodarone bolus, and then amiodarone drip. Pulmonary #Acute hypoxic respiratory failure, secondary to ? aspiration pneumonitis After RR on 04/10, ABG prior to RSI: pH 7.1, pCO2 75, pO2 71 -> ABG after RSI + mechanical ventilation: pH 7.2, pCO2 58, and pO2 78. 04/11 AM ABG: pH 7.4, pCO2 40, pO2 93, which are much improved compared to prior. 04/12 AM ABG: pH 7.41, pCO2 39, pO2 147 -> ABG after ventilation changes: pH 7.4, pCO2 40, pO2 91. During intubation, foreign material (? tube feeds) were seen and could be possible etiology of desaturation. ? Mechanically ventilated: VT 350, RR 36, PEEP 14, FiO2 45% -> VT 350, RR 24, PEEP 10, FiO2 35% on 04/12 #[place], CAP vs aspiration pneumonitis CT chest on admission showed bilateral pneumonia. CXR 04/09 again showed bilateral pneumonia but improved compared to CXR on 04/07. 04/10, RR due to desaturation with suspected aspiration event causing likely aspiration pneumonitis. Since already received 7 days antibiotics, current antibiotics will be for encephalitis versus meningitis. Sputum culture 04/10: mixed quentin Blood culture 04/06: no growth COVID, RSV, flu Cocci IgG/IgM, and MRSA nares negative ? Follow-up bronchial lavage culture 04/10 ? Follow-up repeat blood culture 04/10 Gastrointestinal #Transaminitis, resolved Has received multiple antibiotics #GI prophylaxis ? Pantoprazole 40 mg IV daily #NG tube placed, 04/09 KUB showed Dobhoff NG tube in distal stomach/satisfactory position Dobhoff removed during MRI on 04/09 and replaced with another NG tube ? [employer] Professor referral to begin NG tube feedings -> HOLDING tube feeds ? NG tube in place, suctioning off Renal #Acute renal failure Status post placement of TDC. Hemodialysis sessions 04/06, 04/07, 04/08, 04/10, 04/13. ? HD per nephrology recommendations ? Renally dose medications ? Avoid nephrotoxic agents #History of staghorn calculi #Nephrolithiasis, 10 mm and 14 mm lower pole left renal calculi without hydronephrosis seen on CT A/P ? Urology consulted, not surgical candidate at this time #Hypercalcemia, resolved #Hyperphosphatemia ? Continue hemodialysis Endocine #Type 2 diabetes mellitus A1c 7.6%. Glucose has increased significantly in setting of IV steroids, but have been held on 04/10. BS 595 at 1200 -> 367 1900 -> 299-320 til now. 40 units glargine in 24 hours, 62 units lispro during day (12 units SSI), 15 units regular insulin. 41 units lispro overnight. Beta hydroxybutyrate 2.1 -> 1.7, AG 18. ? SSI (scale 3) Q4HR ? Increased 50 to 60 units glargine every morning Heme #Chronic, normocytic anemia Slowly downtrending but stable. Has not had bloody bowel movements or gross hematuria. ? Continue to monitor Infectious disease #Sepsis, with unknown source Patient met 3/4 SIRS, and unsure what source is as CXR shows improvement in b/l infiltrates and adequately treated with full course of Abx for PNA Meningitis ruled out from LP results -Will start on Meropenem, renal dose -ID consulted, and following Urine culture 04/05 and 04/06: No growth Blood culture 04/05: No growth Sputum culture 04/06 and 04/10: Mixed quentin MRSA negative CSF culture: GPC, no growth Bronchial lavage 04/10: NGTD Blood culture 04/10: NGTD Ceftriaxone 04/05-04/06 Azithromycin 04/05-04/06 Cefepime 04/06-04/11 Doxycycline 04/06-04/09 Vancomycin 04/10-04/11 Ampicillin 04/10 Meropenem 04/13- #? Meningitis-r/o ? Both LP show minimal to no WBC in CSF #Community acquired pneumonia-improved ? See respiratory above Hospital management: Disposition: intubated and mechanically ventilated Fluids: none Pressors: Levophed PRN Sedatives: Precedex PRN Diet: NPO, NG tube with suctioning off DVT prophylaxis: heparin SC q8hr GI prophylaxis: pantoprazole 40 mg IV Lines: 2 peripheral IV, TDC CODE STATUS: full code Plan discussed with attending physician Dr. Bardales. Kristen Bertrand MD PGY-2 Internal Medicine
--- NOTE | 2024-04-13 18:05 | PD.RESPROC ---
Procedures Procedure Date / Time 04/13/24 2897 Lumbar Puncture Indication(s): acute encephalopathy Informed consent obtained: obtained from surrogate decision maker Time out done, and the following verified: correct patient, side and site, procedure, patient position and implants and/or equipment Patient position: left lateral decubitus Skin prep: 0.5% Chlorhexidine/Alcohol Local anesthetic used: Lidocaine 1% Amount of anesthesia used (mL): 1 Spinal needle gauge: 22G Interspace used: L3-L4 Opening pressure (cmH20): 13 Fluid initially obtained: clear EBL(ml): 2 Complications: none Additional comments: Procedure was done on the third attempt. CSF was observed and samples were taken. ICU attending Dr. Bardales was immediately available throughout the procedure. Attending note: I was present for the procedure and able to assist as needed
[2024-04-13 18:36] LABS: Coccid Serology, CF CSF (UCD)* See Sep Rpt; Misc Send Out* See Sep Rpt
[2024-04-13 18:51] LABS: CSF Cell Count Tube # Tube # 4; CSF Color Colorless (Colorless); CSF Red Blood Cell 34 /cmm; CSF White Blood Cell 0 /cmm; CSF, Appearance Clear (Clear)
[2024-04-13 19:13] LABS: Glucose,CSF 192 mg/dL (40-70); Protein Total,CSF 72 mg/dL (8-32)
[2024-04-13 19:14] LABS: Ag, Group B Strep Negative (Negative); Ag, H Influenza B Negative (Negative); Ag, N Mening B/Ecoli K1 Negative (Negative); Ag, N Meningitidis ACY W135 Negative (Negative); Ag, Strep Pneumonia Negative (Negative)
[2024-04-13 19:55] LABS: CSF Gram Stain Alert Gram Stain Completed
[2024-04-13] MEDS: ATORVASTATIN CALCIUM 20 MG TABLET 80 MG NG (21:50)
--- NOTE | 2024-04-13 23:59 | PD.NEUROPROG ---
Documentation for date of: 04/13/24 Subjective Subjective Interval history: Patient was seen in ICU today. Patient continued to remain intubated and on mechanical ventilatory support. 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 She continues to move her right upper and lower extremities purposefully and on painful stimulation. At times occasional movement in the left side noted, no more myoclonic jerks or seizures seen Exam - Neurology Vital Signs Temp Pulse Resp BP Pulse Ox O2 Del Method O2 Flow Rate 97.0 F 95 25 H 123/62 96 Mechanical Ventilation 13 04/13/24 20:00 04/13/24 23:05 04/13/24 18:30 04/13/24 23:05 04/13/24 23:05 04/13/24 06:01 04/12/24 06:00 FiO2 35 04/13/24 22:30 Narrative Exam GENERAL APPEARANCE: Well-developed, obese built female in mild distress. HEENT: Normocephalic, atraumatic, extraocular movements intact. Pupils: Equal reacting to light NECK: Supple, no JVD or bruits. CARDIOVASULAR: Heart: S1, S2 heard, regular without S3-S4 or murmur no rubs or gallops. LUNGS/CHEST: Clear to auscultation bilaterally. No rails, rhonchi, or wheezing. Normal inspection. ABDOMEN: Soft, nontender, with normal bowel sounds. No pulsatile masses. No rebound, rigidity, or guarding. Normal inspection and palpation. EXTREMITIES: Normal inspection and palpation. No edema, clubbing or cyanosis. SKIN: Warm and dry without rashes. Normal inspection. MUSCULOSKELETAL: No cervical, thoracic, lumbar or midline bony tenderness. Normal inspection. NEURO: Lethargic, not responsive to verbal commands, some intermittent purposeful movements noted in right upper and lower extremities. No more myoclonic twitching in right hemiface noted. No signs of meningeal irritation noted. Rest of the exam limited secondary to mental status PSYCHIATRIC: Limited Objective Labs 04/13/24 04:42 04/13/24 04:42 Labs: Laboratory Results - last 24 hr 04/08/24 04/08/24 04/13/24 07:10 18:00 04:42 WBC 17.8 H RBC 3.00 L Hgb 8.4 L Hct 27.0 L MCV 90 MCH 28.0 MCHC 31.1 RDW Std Deviation 51.3 H Plt Count 302 Neut % (Auto) 73 Lymph % (Auto) 4 L [place] % (Auto) 13 H Eos % (Auto) 0 Baso % (Auto) 0 Neut # (Auto) 12.9 H Lymph # (Auto) 0.7 L [place] # (Auto) 2.3 H Eos # (Auto) 0.0 Baso # (Auto) 0.0 Immature Gran # (Auto) 1.83 H Absolute Nucleated RBC 0.14 H Immature Gran % 10 H Nucleated RBC % 1 H Smear Path Review Sent to Pathologist Sodium 141 Potassium 3.9 Chloride 102 Carbon Dioxide 21.3 Anion Gap 18 H BUN 101 H* Creatinine 7.0 H* D Estim Creat Clear Calc 8.1 L eGFR 6 L* BUN/Creatinine Ratio 14 Glucose 346 H Calculated Osmolality 326 H Calcium 9.5 Corrected Calcium 10.0 Phosphorus 5.1 Magnesium 3.1 H Total Bilirubin 0.2 L AST 14 ALT 11 Alkaline Phosphatase 87 Total Protein 6.7 Albumin 3.4 Globulin 3.3 Albumin/Globulin Ratio 1.0 L CSF Appearance CSF Color CSF WBC CSF RBC CSF Cell Count Tube # CSF Mononuclear WBCs CSF Polynuclear WBCs CSF Glucose CSF Total Protein CSF VDRL NON-REACTIVE CSF H.influenzae B Ag CSF N.meningit ACY/W135 CSF N.mening B/E.coli K1 CSF Strep B Antigen CSF Strep pneumoniae Ag Valproic Acid 36.9 L 04/13/24 18:00 WBC RBC Hgb Hct MCV MCH MCHC RDW Std Deviation Plt Count Neut % (Auto) Lymph % (Auto) [place] % (Auto) Eos % (Auto) Baso % (Auto) Neut # (Auto) Lymph # (Auto) [place] # (Auto) Eos # (Auto) Baso # (Auto) Immature Gran # (Auto) Absolute Nucleated RBC Immature Gran % Nucleated RBC % Smear Path Review Sodium Potassium Chloride Carbon Dioxide Anion Gap BUN Creatinine Estim Creat Clear Calc eGFR BUN/Creatinine Ratio Glucose Calculated Osmolality Calcium Corrected Calcium Phosphorus Magnesium Total Bilirubin AST ALT Alkaline Phosphatase Total Protein Albumin Globulin Albumin/Globulin Ratio CSF Appearance Clear CSF Color Colorless CSF WBC 0 CSF RBC 34 CSF Cell Count Tube # Tube # 4 CSF Mononuclear WBCs TNP CSF Polynuclear WBCs TNP CSF Glucose 192 H D CSF Total Protein 72 H CSF VDRL CSF H.influenzae B Ag Negative CSF N.meningit ACY/W135 Negative CSF N.mening B/E.coli K1 Negative CSF Strep B Antigen Negative CSF Strep pneumoniae Ag Negative Valproic Acid ABG Interpretation ABG results: 04/05/24 04/06/24 04/06/24 13:11 05:17 13:37 ABG pH 7.23 L 7.23 L ABG pCO2 39 31 L ABG pO2 54 L* 70 L ABG HCO3 16 L 13 L ABG O2 Saturation 86 L 92 ABG Base Excess -11 L -13 L VBG pH 7.23 L VBG pCO2 34 L VBG pO2 35 VBG Base Excess -13 L 04/06/24 04/07/24 04/08/24 16:56 12:14 14:46 ABG pH 7.42 D 7.39 7.36 ABG pCO2 35 40 44 ABG pO2 69 L 79 L 40 L* D ABG HCO3 23 24 25 ABG O2 Saturation 94 94 71 L ABG Base Excess -2 -1 -1 VBG pH VBG pCO2 VBG pO2 VBG Base Excess 04/08/24 04/08/24 04/10/24 16:20 17:19 09:05 ABG pH 7.34 L 7.35 Cancelled ABG pCO2 46 45 Cancelled ABG pO2 36 L* 113 H D Cancelled ABG HCO3 25 25 Cancelled ABG O2 Saturation 63 L 97 Cancelled ABG Base Excess -1 -1 Cancelled VBG pH VBG pCO2 VBG pO2 VBG Base Excess 04/10/24 04/10/24 04/10/24 09:41 11:45 14:26 ABG pH 7.10 L* D 7.12 L* 7.20 L ABG pCO2 75 H* D 73 H* 58 H D ABG pO2 71 L D 75 L 78 L ABG HCO3 23 24 23 ABG O2 Saturation 89 L 90 L 93 ABG Base Excess -7 L -6 L -5 L VBG pH VBG pCO2 VBG pO2 VBG Base Excess 04/10/24 04/11/24 04/11/24 15:21 05:29 17:04 ABG pH 7.25 L 7.40 D 7.39 ABG pCO2 52 H 40 D 40 ABG pO2 90 93 74 L ABG HCO3 23 25 24 ABG O2 Saturation 95 98 93 ABG Base Excess -5 L 0 -1 VBG pH VBG pCO2 VBG pO2 VBG Base Excess 04/12/24 04/12/24 05:23 11:35 ABG pH 7.41 7.40 ABG pCO2 39 40 ABG pO2 147 H D 91 D ABG HCO3 25 25 ABG O2 Saturation 98 96 ABG Base Excess 0 0 VBG pH VBG pCO2 VBG pO2 VBG Base Excess Assessment & Plan Assessment and plan (1) Altered mental status: Status: Acute Assessment and plan: Still suspect autoimmune encephalitis repeat CSF analysis: Insignificant so far with elevated protein and glucose consistent with underlying diabetes Will start her on high-dose steroids along with IVIG continue with the Depakote for controlling myoclonic jerks in the face 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 Continue with aspirin and Plavix 75 mg for prophylaxis along with statin. Noted significant intracranial stenosis in the MRA even though images are degraded from motion. Follow-up with repeat EEG and rest of the CSF analysis when they become available (2) ANA LAURA (acute kidney injury): Status: Acute Assessment and plan: Going to be on dialysis (3) Non-ST elevation (NSTEMI) myocardial infarction: Status: Acute Assessment and plan: cardiology consulted, recommended aspirin and statin (4) Acute hypoxic respiratory failure: Status: Acute Assessment and plan: Got intubated and on mechanical ventilatory support (5) Accelerated hypertension: Status: Acute Assessment and plan: Blood pressure before dialysis today was in the 200s Dropped following dialysis to the extent of needing Levophed
[2024-04-14] VITALS (123 sets, daily range): BP systolic 82–158; BP diastolic 54–80; PULSE 7–116; RESP 0–30; TEMP 36.4–38.1; O2SAT 88–99
[2024-04-14] MEDS: INSULIN LISPRO (AdmeLOG) 1 UNIT/0.01 ML UNIT SC ×2 (01:53→05:32)
[2024-04-14] MEDS: ALBUTEROL/IPRATROPIUM (Duoneb) RT SOL 3 ML NEBU INH ×6 (03:10→22:43)
[2024-04-14] MEDS: VALPROATE SOD INJ 750 MG in SODIUM CHLORIDE 0.9% 50 ML 55 MG IV ×3 (05:31→21:45)
[2024-04-14] MEDS: HEPARIN SOD INJ 5000 UNIT/ML VIAL SC ×3 (05:32→21:45)
[2024-04-14 05:43] LABS: Basophils # (Auto) 0.1 Thou/mm3 (0.0-0.2); Basophils % (Auto) 0 % (0-2.5); Eosinophils % (Auto) 0 % (0-10); Hematocrit 26.9 % (36.0-46.0); Immature Granulocytes % (Auto) 15 % (0-0); Immature Granulocytes Auto 2.44 Thou/mm3 (0.00-0.00); Lymphocytes # (Auto) 0.9 Thou/mm3 (1.0-4.8); Lymphocytes % (Auto) 5 % (10-50); Mean Corpuscular HGB Conc 32.7 g/dl (31.0-37.0); Mean Corpuscular Hemoglobin 28.5 pg (25.0-35.0); Mean Corpuscular Volume 87 fL (80-100); Monocytes % (Auto) 12 % (0-12); Neutrophils # (Auto) 10.8 Thou/mm3 (1.8-7.7); Neutrophils % (Auto) 67 % (37-80); Nucleated Red Blood Cell # 0.55 Thou/mm3 (0.00-0.00); Nucleated Red Blood Cell % 3 /100 WBC (0); Platelet Count 325 Thou/mm3 (140-440); RDW Standard Deviation 49.5 fL (36.4-46.3); Red Blood Count 3.09 Miln/mm3 (4.00-5.20); White Blood Count 16.2 Thou/mm3 (3.6-11.0)
[2024-04-14 05:56] LABS: Hemoglobin 8.8 g/dL (12.0-16.0)
[2024-04-14 06:06] LABS: Sed Rate (ESR) 68 mm/hr (0-30)
[2024-04-14 06:34] LABS: Alanine Aminotransferase 10 U/L (10-49); Alkaline Phosphatase 92 U/L (46-116); Anion Gap 17 (7-16); Aspartate Amino Transferase 12 U/L (0-34); BUN/Creatinine Ratio 13 Ratio (12-20); Bilirubin,Total 0.2 mg/dL (0.3-1.2); Blood Urea Nitrogen 79 mg/dL (9-23); C-Reactive Protein 25.6 mg/dL (0.0-0.9); Calcium 9.7 mg/dL (8.3-10.6); Calcium (Corrected) 9.7 mg/dL (8.5-10.1); Carbon Dioxide 22.9 mMol/L (20.0-31.0); Chloride 93 mMol/L (98-107); Creatinine (Component) 6.1 mg/dL (0.6-1.3); Estimated Creatinine Clearance 9.3 mL/min (>60); Glucose 316 mg/dL (74-106); Magnesium 2.6 mg/dL (1.6-2.6); Osmolality,Calculated 302 (275-295); Phosphorous 4.6 mg/dL (2.4-5.1); Potassium 3.9 mMol/L (3.4-5.1); Sodium 133 mMol/L (136-145); eGFR 7 See Note
[2024-04-14 06:55] LABS: HIV Ag/Ab, 4th Gen NON-REACTIVE
[2024-04-14] MEDS: PANTOPRAZOLE INJ 40 MG VIAL IVP (08:32)
[2024-04-14] MEDS: CLOPIDOGREL BISULFATE 75 MG TABLET NG (08:32)
[2024-04-14] MEDS: Aspirin 325 MG TABLET NG (08:32)
[2024-04-14] MEDS: METOPROLOL SUCCINATE XL 25 MG TABCR 50 MG GT (08:32)
[2024-04-14] MEDS: CALCIUM CARBONATE 600 MG TABLET PO ×2 (08:32→21:42)
[2024-04-14] MEDS: INSULIN GLARGINE (Lantus) 5 UNIT/0.05 ML (PER 5 UNITS) 60 UNIT SC (08:33)
--- NOTE | 2024-04-14 09:26 | PD.RESPRO ---
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 Stroke alert was called, and underwent stroke workup. tPA not given due to out of window. On further interviewing, she reported that she has been taking some penicillin that was brought from [place] of long time ago. She also took Motrin x 2 in last 2 days. She admitted having fever, denied any chills, lightheadedness, chest pain, and any flank pain. Her vitals are fairly stable, hemoglobin 9.1, ABG significant for pH 7.23, pCO2 39, pO2 70. Chemistry panel revealed sodium 133, mild hyperkalemia, bicarb 15.1. BUN 66, creatinine 5.9, EGFR 7. Baseline creatinine is 1.6 with EGFR 56. Triglyceride 493, cholesterol 191, HDL 30 with normal TSH and T4. Hepatitis panel negative. CT head negative for midline shift, acute hemorrhage or mass effect. Pending carotid US, and brain MRI. CXR with mild congestion and superimposed pneumonia. CT abdomen pelvis revealed significant hepatomegaly, moderate bilateral renal parenchymal scarring, 10 mm and 14 mm renal calculi on the left, cystitis pattern, no hydronephrosis or bowel obstruction. PMH: As mentioned above Social history: Denies alcohol, smoking or any illicit drug use Allergies: No known allergies 04/07/2024: The patient was interviewed and examined at the bedside. She was saturating 93% on BiPAP, with FiO2 40% and O2 flow 30 L. Chemistry panel revealed BUN 52, creatinine 4.9, EGFR 9, blood sugar 279, calcium 8.1 and phosphorus 6.0. The patient will get second session of hemodialysis this morning. Urine random creatinine 113, protein 598, sodium 42, potassium 33, chloride 27, urea nitrogen 302. Renal ultrasound significant for moderate bilateral renal parenchymal eschar formation, bilateral renal cortical thinning with no hydronephrosis. 04/08/2024: The patient was examined at the bedside this morning. She reported having difficulty breathing. She was upgraded to ICU. She was saturating 92% on BiPAP. Other vitals were fairly stable. Physical examination was significant for distant breath sounds, and bibasilar crackles. Labs were significant for hemoglobin trending down to 8.1 likely dilutional, BUN 41 and creatinine 4.4, phosphorus 5.8. Ordered ZAINAB screen, ANCA, antiproteinase 3, antimyeloperoxidase and complement level. 04/09/2024: The patient was at the bedside this morning again. She was difficult to arouse and was reacting to painful stimulus. Her vitals were stable saturating 97% on high flow NC with FiO2 80%. The patient underwent hemodialysis yesterday with removal of 3 L fluid and was hypotensive after that. BUN And creatinine improving to 26 and 3.7 respectively. Phosphorus 5.6 less than 10. We will hold off today and proceed with morning. 04/10/24: The patient was agitated overnight and was given 2 mg of IV lorazepam. This morning, she was responding only to painful stimuli, lying on her bed. Her fingerstick blood sugar this morning was 483, hemoglobin 8.9, Chemistry panel significant for potassium 5.0, BUN 53, creatinine 5.6, and blood sugar 596. The patient is planned to undergo hemodialysis this morning. 04/11/2024: The patient was examined at the ICU bedside this morning. She was intubated. She was, saturating 100% on mechanical ventilation, on FiO2 45%, with heart rate 112, and respiratory rate in 30s. CBC was significant for WBC 9.9, hemoglobin 8.1 ABG WNL, sodium 139, potassium 3.4, anion gap 18, BUN 51 and creatinine 4.7 with blood glucose 350, troponin trended up to 1.854. We will hold off on dialysis for today, and proceed with dialysis tomorrow morning. 04/13/2024: The patient was examined at the ICU bedside this morning again. She was intubated, was saturating 96% on mechanical ventilation with FiO2 35%. She was responsive only to deep stimuli with mild eye-opening. CBC revealed white count 17.8, hemoglobin 8.4, chemistry panel with anion gap 18, BUN 101, creatinine 7.0, EGFR 6, blood sugar 346, magnesium 3.1. Patient was tolerating hemodialysis well this morning. 04/14/2024: The patient was examined in the ICU bed this morning. She was intubated, and mechanically ventilated saturating 92% on 35% FiO2. RR 30, blood pressure 109/63. CBC revealed WBC 16.2, 8.8, ESR 68. Chemistry panel revealed sodium 133, chloride 93, 3.9, anion gap 17, BUN 79 and creatinine 6.1 and blood sugar 316. CRP 25.6. CSF fluid revealed glucose 192 and protein 72 both elevated. We will off on dialysis today, and proceed with dialysis tomorrow morning. Exam Vital Signs Temp Pulse Resp BP Pulse Ox O2 Del Method O2 Flow Rate 98.2 F 7 L 30 H 109/63 92 L Mechanical Ventilation 13 04/14/24 07:00 04/14/24 08:32 04/14/24 06:27 04/14/24 08:32 04/14/24 07:00 04/14/24 07:00 04/12/24 06:00 FiO2 35 04/14/24 07:00 Narrative Exam General: No acute distress, alert and oriented x 0,responding only to deep stimuli. HEENT: Moist mucous membranes, oropharynx clear, sedated and intubated Neck: Supple, No masses, No JVD CVS: S1S2 Regular rate and rhythm, No murmurs, rubs or gallops Lungs: Distant breath sounds, no crackles, no wheeze no rhonchi Abd: Soft, NT/ND, +BS, no organomegaly Ext: 1+ bilateral lower limb edema, warm and well perfused, peripheral arteries barely palpable Skin: No rash Psych: Unobtainable Objective Labs 04/15/24 07:20 04/15/24 12:15 Labs: Laboratory Results - last 24 hr 04/10/24 04/13/24 04/13/24 10:40 04:42 18:00 WBC RBC Hgb Hct MCV MCH MCHC RDW Std Deviation Plt Count Neut % (Auto) Lymph % (Auto) [place] % (Auto) Eos % (Auto) Baso % (Auto) Neut # (Auto) Lymph # (Auto) [place] # (Auto) Eos # (Auto) Baso # (Auto) Immature Gran # (Auto) Absolute Nucleated RBC Immature Gran % Nucleated RBC % Smear Path Review Sent to Pathologist ESR Sodium Potassium Chloride Carbon Dioxide Anion Gap BUN Creatinine Estim Creat Clear Calc eGFR BUN/Creatinine Ratio Glucose Calculated Osmolality Calcium Corrected Calcium Phosphorus Magnesium Total Bilirubin AST ALT Alkaline Phosphatase C-Reactive Prot, Quant Total Protein Albumin Globulin Albumin/Globulin Ratio CSF Appearance Clear CSF Color Colorless CSF WBC 0 CSF RBC 34 CSF Cell Count Tube # Tube # 4 CSF Mononuclear WBCs TNP CSF Polynuclear WBCs TNP CSF Glucose 192 H D CSF Total Protein 72 H CSF H.influenzae B Ag Negative CSF N.meningit ACY/W135 Negative CSF N.mening B/E.coli K1 Negative CSF Strep B Antigen Negative CSF Strep pneumoniae Ag Negative HIV 1&2 Ag/Ab, 4th Gen NON-REACTIVE 04/14/24 04:57 WBC 16.2 H RBC 3.09 L Hgb 8.8 L Hct 26.9 L MCV 87 MCH 28.5 MCHC 32.7 RDW Std Deviation 49.5 H Plt Count 325 Neut % (Auto) 67 Lymph % (Auto) 5 L [place] % (Auto) 12 Eos % (Auto) 0 Baso % (Auto) 0 Neut # (Auto) 10.8 H Lymph # (Auto) 0.9 L [place] # (Auto) 2.0 H Eos # (Auto) 0.0 Baso # (Auto) 0.1 Immature Gran # (Auto) 2.44 H Absolute Nucleated RBC 0.55 H Immature Gran % 15 H Nucleated RBC % 3 H Smear Path Review ESR 68 H Sodium 133 L Potassium 3.9 Chloride 93 L Carbon Dioxide 22.9 Anion Gap 17 H BUN 79 H Creatinine 6.1 H* D Estim Creat Clear Calc 9.3 L eGFR 7 L* BUN/Creatinine Ratio 13 Glucose 316 H Calculated Osmolality 302 H Calcium 9.7 Corrected Calcium 9.7 Phosphorus 4.6 Magnesium 2.6 Total Bilirubin 0.2 L AST 12 ALT 10 Alkaline Phosphatase 92 C-Reactive Prot, Quant 25.6 H Total Protein 8.0 Albumin 4.0 D Globulin 4.0 H Albumin/Globulin Ratio 1.0 L CSF Appearance CSF Color CSF WBC CSF RBC CSF Cell Count Tube # CSF Mononuclear WBCs CSF Polynuclear WBCs CSF Glucose CSF Total Protein CSF H.influenzae B Ag CSF N.meningit ACY/W135 CSF N.mening B/E.coli K1 CSF Strep B Antigen CSF Strep pneumoniae Ag HIV 1&2 Ag/Ab, 4th Gen ABG Interpretation ABG results: 04/05/24 04/06/24 04/06/24 13:11 05:17 13:37 ABG pH 7.23 L 7.23 L ABG pCO2 39 31 L ABG pO2 54 L* 70 L ABG HCO3 16 L 13 L ABG O2 Saturation 86 L 92 ABG Base Excess -11 L -13 L VBG pH 7.23 L VBG pCO2 34 L VBG pO2 35 VBG Base Excess -13 L 04/06/24 04/07/24 04/08/24 16:56 12:14 14:46 ABG pH 7.42 D 7.39 7.36 ABG pCO2 35 40 44 ABG pO2 69 L 79 L 40 L* D ABG HCO3 23 24 25 ABG O2 Saturation 94 94 71 L ABG Base Excess -2 -1 -1 VBG pH VBG pCO2 VBG pO2 VBG Base Excess 04/08/24 04/08/24 04/10/24 16:20 17:19 09:05 ABG pH 7.34 L 7.35 Cancelled ABG pCO2 46 45 Cancelled ABG pO2 36 L* 113 H D Cancelled ABG HCO3 25 25 Cancelled ABG O2 Saturation 63 L 97 Cancelled ABG Base Excess -1 -1 Cancelled VBG pH VBG pCO2 VBG pO2 VBG Base Excess 04/10/24 04/10/24 04/10/24 09:41 11:45 14:26 ABG pH 7.10 L* D 7.12 L* 7.20 L ABG pCO2 75 H* D 73 H* 58 H D ABG pO2 71 L D 75 L 78 L ABG HCO3 23 24 23 ABG O2 Saturation 89 L 90 L 93 ABG Base Excess -7 L -6 L -5 L VBG pH VBG pCO2 VBG pO2 VBG Base Excess 04/10/24 04/11/24 04/11/24 15:21 05:29 17:04 ABG pH 7.25 L 7.40 D 7.39 ABG pCO2 52 H 40 D 40 ABG pO2 90 93 74 L ABG HCO3 23 25 24 ABG O2 Saturation 95 98 93 ABG Base Excess -5 L 0 -1 VBG pH VBG pCO2 VBG pO2 VBG Base Excess 04/12/24 04/12/24 05:23 11:35 ABG pH 7.41 7.40 ABG pCO2 39 40 ABG pO2 147 H D 91 D ABG HCO3 25 25 ABG O2 Saturation 98 96 ABG Base Excess 0 0 VBG pH VBG pCO2 VBG pO2 VBG Base Excess Quality Measures Quality Measures VTE prophylaxis Advance care planning discussed with:: other (ICU team) Assessment & Plan Assessment Current Active Medications: Generic Name Dose Route Start Last Admin Trade Name Gaboq PRN Reason Stop Dose Admin Acetaminophen 650 mg 04/05/24 23:06 Acetaminophen 325 Mg Tablet PO 05/05/24 23:05 Q6H PRN PAIN SCALE 1-3 (mild Acetaminophen 650 mg 04/05/24 23:06 Acetaminophen 325 Mg Tablet PO 05/05/24 23:05 Q6H PRN Fever >100 Acetaminophen 1,000 mg 04/13/24 11:30 04/13/24 14:29 Acetaminophen 500 Mg Tablet PO 04/18/24 11:31 1,000 mg QDAY@1130 DELMY Administration Albuterol/Ipratropium 3 ml 04/10/24 11:45 04/14/24 06:27 Albuterol/Ipratropium (Duoneb) Rt Rpincess 3 Ml Nebu INH 05/10/24 11:44 3 ml Q4HRRT DELMY Administration Aspirin 325 mg 04/12/24 10:15 04/14/24 08:32 Aspirin 325 Mg Tablet NG 05/12/24 10:14 325 mg QDAY DELMY Administration Atorvastatin Calcium 80 mg 04/11/24 21:00 04/13/24 21:50 Atorvastatin Calcium 20 Mg Tablet NG 05/11/24 20:59 80 mg HS DELMY Administration Calcium Carbonate 600 mg 04/06/24 14:45 04/14/24 08:32 Calcium Carbonate 600 Mg Tablet PO 05/06/24 14:44 600 mg BID DELMY Administration Clopidogrel Bisulfate 75 mg 04/12/24 09:00 04/14/24 08:32 Clopidogrel Bisulfate 75 Mg Tablet NG 05/12/24 08:59 75 mg QDAY DELMY Administration Dextrose 25 ml 04/07/24 10:52 Dextrose 50%-Water Inj 50 Ml Syringe IV 05/07/24 10:51 Q15MIN PRN BG 50-70 responsive npo pt Dextrose 50 ml 04/07/24 10:52 Dextrose 50%-Water Inj 50 Ml Syringe IV 05/07/24 10:51 Q15MIN PRN BG <50 OR BG <70 & pt unresponsive Diphenhydramine HCl 25 mg 04/13/24 11:30 04/13/24 14:29 Diphenhydramine Elix 25 Mg/10 Ml Udc NG 04/18/24 11:31 25 mg QDAY@1130 DELMY Administration Glucagon 1 mg 04/07/24 10:52 Glucagon Inj 1 Mg Vial IM Q15MIN PRN BG <70, and no IV access Heparin Sodium (Porcine) 3,300 unit 04/06/24 15:03 04/13/24 10:53 Heparin Sod Inj 1000 Unit/Ml Vial 10 Ml INDWELLCAT 04/20/24 15:02 3,300 unit PRN PRN Administration DIALYSIS Heparin Sodium (Porcine) 5,000 unit 04/09/24 08:00 04/14/24 05:32 Heparin Sod Inj 5000 Unit/Ml Vial SC 04/23/24 07:59 5,000 unit Q8HR DELMY Administration Albumin Human 25 gm in 100 mls @ 100 mls/min 04/06/24 08:27 04/13/24 08:21 Albuminar-25 Ivpb IV 100 mls/min PRN PRN Administration DIALYSIS Dexmedetomidine/Sodium Chloride 200 mcg in 50 mls @ 5.31 mls/hr 04/08/24 09:17 04/11/24 05:00 Precedex Ivpb IV 05/08/24 09:16 0 mcg/kg/hr .Q9H25M PRN 0 mls/hr Per PROTOCOL Titration Protocol 0.2 MCG/KG/HR Norepinephrine/Dextrose 8 mg in 250 mls @ 9.956 mls/hr 04/08/24 09:53 04/14/24 06:00 Levophed In D5w 8mg/250ml IV 05/08/24 09:52 0.01 mcg/kg/min .Q24H PRN 1.991 mls/hr PER PROTOCOL Titration Protocol 0.05 MCG/KG/MIN Methylprednisolone Sodium 104 mls @ 104 mls/hr 04/09/24 12:00 04/10/24 13:27 Succinate 250 mg/ Sodium IV 04/16/24 11:59 Not Given Chloride Q6HR DELMY Fentanyl Citrate 2,500 mcg in 250 mls @ 2.5 mls/hr 04/10/24 09:47 Sublimaze Inj 2,500 Mcg/250 Ml Bag IV 04/15/24 09:46 .Q24H PRN PER PROTOCOL Protocol 25 MCG/HR Propofol 1,000 mg in 100 mls @ 2.955 mls/hr 04/10/24 09:50 Diprivan Ivpb IV 05/10/24 09:49 .Q24H PRN PER PROTOCOL Protocol 5 MCG/KG/MIN Valproic Acid 750 mg/ Sodium 57.5 mls @ 55 mls/hr 04/11/24 14:00 04/14/24 05:31 Chloride IV 05/08/24 21:59 55 mls/hr Q8HR DELMY Administration Phenylephrine HCl 40 mg/ 100 mls @ 1.422 mls/hr 04/11/24 20:11 Sodium Chloride IV 05/11/24 20:10 .Q24H PRN Per Cardiogenic Protocol Protocol 0.1 MCG/KG/MIN Meropenem 500 mg/ Sodium 50 mls @ 100 mls/hr 04/13/24 10:00 04/13/24 11:36 Chloride IV 04/20/24 09:59 100 mls/hr QDAY DELMY Administration Immune Globulin 20 gm/ Immune 250 mls @ 41.667 mls/hr 04/13/24 12:00 04/13/24 15:05 Globulin 5 gm/ IV IV 04/18/24 17:59 41.667 mls/hr Miscellaneous Supplies QDAY@1200 DELMY Administration Insulin Glargine 60 unit 04/14/24 09:00 04/14/24 08:33 Insulin Glargine (Lantus) 5 Unit/0.05 Ml (Per 5 Units) SC 05/14/24 08:59 60 unit QDAY DELMY Administration Insulin Human Lispro 0 unit 04/10/24 14:00 04/14/24 05:32 Insulin Lispro (Admelog) 1 Unit/0.01 Ml Unit SC 05/10/24 13:59 6 unit Q4HR DELMY Administration Protocol Labetalol HCl 10 mg 04/05/24 23:55 Labetalol Inj 5 Mg/Ml Vial 20 Ml IVP 05/05/24 23:54 X1 PRN BP >220/110 Lidocaine HCl 9 ml 04/06/24 11:00 Lidocaine Inj Pf 1% 5 Ml Vial INFL X1 PRN LOCAL ANESTHESIA Protocol Metoprolol Succinate 50 mg 04/12/24 19:00 04/14/24 08:32 Metoprolol Succinate Xl 25 Mg Tabcr GT 05/12/24 18:59 50 mg QDAY DELMY Administration Ondansetron HCl 4 mg 04/05/24 23:06 Ondansetron Inj 2 Mg/Ml Inj 2 Ml IV 05/05/24 23:05 Q6H PRN NAUSEA OR VOMITING Protocol Pantoprazole Sodium 40 mg 04/06/24 09:00 04/14/24 08:32 Pantoprazole Inj 40 Mg Vial IVP 05/06/24 08:59 40 mg QDAY DELMY Administration Pharmacy Consult 1 each 04/09/24 08:54 Pharmacy Renal Dose Adjustment 1 Ea XX 05/08/24 08:59 QDAY PRN protocol Plan The patient is a 64-year-old female with significant past medical history of 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 Stroke alert was called, and underwent stroke workup. tPA not given due to out of window. On further interviewing, she reported that she has been taking some penicillin that was brought from [place] of long time ago. She also took Motrin x 2 in last 2 days. She admitted having fever, denied any chills, lightheadedness, chest pain, and any flank pain. Nephrology consultation was done for further management of ANA LAURA in CKD stage IIIa. #ANA LAURA in CKD stage III A Secondary to hypertensive nephropathy and diabetes nephropathy Likely multifactorial secondary to ATN in the setting of severe respiratory infection, complicated by ibuprofen x2 use vs glomerular disease Patient's baseline creatinine is 1.6, and GFR is 56. On admission, creatinine 5.9 and GFR 7. On admission ABG significant for acidemia with pH 7.23, pCO2 39, pO2 70. Chemistry panel revealed sodium 133, mild hyperkalemia, bicarb 15.1. ABG significant for pH 7.42 revealing improvement in acidemia, BUN 52, creatinine 4.9, EGFR 9, calcium 8.1, phosphorus 6.0. Urine electrolytes with creatinine 113, total protein 598, sodium 42 (>40 suggestive of ATN), potassium 33, chloride 27, and urea nitrogen 302. BUN/CR ratio <20 so less likely prerenal. Renal ultrasound significant for moderate bilateral renal parenchymal eschar formation, bilateral renal cortical thinning with no hydronephrosis. -Stop the offending agent, penicillin which is likely cause of possible ATN 04/08/2024: Labs were significant for hemoglobin trending down to 8.1 likely dilutional, BUN 41 and creatinine 4.4, phosphorus 5.8. Ordered ZAINAB screen, ANCA, antiproteinase 3, antimyeloperoxidase and complement level, and we will plan for renal biopsy if ANA LAURA doesn't resolve in a couple of days. -Continue to monitor renal panel -Patient will undergo 3.5 hours hemodialysis session x 1 this morning again, and we will plan for 3 L ultrafiltration goal. -Can consider trying bumex 1-2mg x1 to increase urine output. 04/10/2024: Her fingerstick blood sugar this morning was 483, hemoglobin 8.9, Chemistry panel significant for potassium 5.0, BUN 53, creatinine 5.6, and blood sugar 596. The patient is planned to undergo hemodialysis this morning. 04/11/2024: sodium 139, potassium 3.4, anion gap 18, BUN 51 and creatinine 4.7 with blood glucose 350, troponin trended up to 1.854. We will hold off on dialysis for today, and proceed with dialysis tomorrow morning. 04/12/2024: BUN 101, creatinine 7.0, EGFR 6, blood sugar 346, magnesium 3.1. Patient was tolerating hemodialysis well this morning. We will further assess the patient tomorrow morning, and if needed we will proceed with hemodialysis again. 04/14/2024: sodium 133, chloride 93, 3.9, anion gap 17, BUN 79 and creatinine 6.1. We will hold off on hemodialysis today, and proceed with hemodialysis tomorrow morning. #Hypocalcemia, improved 04/05 #Hyperphosphatemia, Improved Secondary to ANA LAURA on CKD -Continue to monitor renal panel #Renal tubular acidosis type IV, improved #Hypertensive emergency, resolved #Acute encephalopathy #Stroke rule out #Hx of CVA 2018 #Acute nephrolithiasis #Hx of renal calculi #Acute hypoxemic respiratory failure #Community-acquired pneumonia #GEMMA/OHS on oxygen HS #NSTEMI type II (improving) #HTN, HLD #IDDM type II -Management deferred to primary hospitalist team. Thank you for your opportunity to participate nephrology team in this patient care. The patient's management plan was discussed with my attending physician MD Jose Serrano MD, PGY2 Attending Provider Attestation/Addendum Patient seen and examined with resident physician Dr. Nesbitt. Note reviewed, agree with findings and recommendations. Patient currently in ICU. Patient got intubated for hypoxic respiratory failure. Patient received dialysis yesterday. BUN still seems to be higher. Will increase the time we will dialyze her tomorrow. Spoke to Dr. Barrett Critical care time more than 35 minutes regarding plan of care and disease management. Labs/medications reviewed. Plan of care discussed with ICU team. CSF fluid showed gram-positive cocci. Cultures negative. On antibiotics. Neurology //ID on the case. Unexplained weakness and altered mental status.
--- NOTE | 2024-04-14 09:48 | PD.RESPRO ---
Documentation for date of: 04/14/24 Subjective Subjective Interval history: 04/14: no acute overnight events reported. Pt is seen and examined at bedside in icu. Pt is on mechanical ventilation, she is not on any sedation but cannot follow commands, she can only move her head side to side. AC mode fiO2 35%, PEEP 10, RR24 and tital volume 350. leukocytosis is down trending and anemia is stable. potassium is 3.9 and magnesium is 2.6. telemetry is review pt is not in afib and is in sinus tachycardia. Currently on metoprolol XL 50mg daily. pt is not on pressor support. BP is stable at 102/61. Exam Vital Signs Temp Pulse Resp BP Pulse Ox O2 Del Method O2 Flow Rate 98.2 F 7 L 30 H 109/63 92 L Mechanical Ventilation 13 04/14/24 07:00 04/14/24 08:32 04/14/24 06:27 04/14/24 08:32 04/14/24 07:00 04/14/24 07:00 04/12/24 06:00 FiO2 35 04/14/24 07:00 Narrative Exam GENERAL: Pt is intubated on mechanical ventilation NEURO: unable to asses due to Pt is intubated and mechanical ventilated, does not follow commands HEENT: Atraumatic, Normocephalic. mucous membranes moist. Eyes open, symmetrical, & clear HEART: Normal Heart Sounds LUNGS: Clear to auscultation with no wheezing or crackles. ABDOMEN: soft, non-distended, non-tender, bowel sounds heard, no guarding or rebound tenderness SKIN: No Rash or ecchymoses EXTREMITIES: No edema, tenderness, able to move all 4 extremities, pedal pulses palpated Objective Labs 04/14/24 04:57 04/14/24 21:16 Labs: Laboratory Results - last 24 hr 04/10/24 04/13/24 04/13/24 10:40 04:42 18:00 WBC RBC Hgb Hct MCV MCH MCHC RDW Std Deviation Plt Count Neut % (Auto) Lymph % (Auto) [place] % (Auto) Eos % (Auto) Baso % (Auto) Neut # (Auto) Lymph # (Auto) [place] # (Auto) Eos # (Auto) Baso # (Auto) Immature Gran # (Auto) Absolute Nucleated RBC Immature Gran % Nucleated RBC % Smear Path Review Sent to Pathologist ESR Sodium Potassium Chloride Carbon Dioxide Anion Gap BUN Creatinine Estim Creat Clear Calc eGFR BUN/Creatinine Ratio Glucose Calculated Osmolality Calcium Corrected Calcium Phosphorus Magnesium Total Bilirubin AST ALT Alkaline Phosphatase C-Reactive Prot, Quant Total Protein Albumin Globulin Albumin/Globulin Ratio CSF Appearance Clear CSF Color Colorless CSF WBC 0 CSF RBC 34 CSF Cell Count Tube # Tube # 4 CSF Mononuclear WBCs TNP CSF Polynuclear WBCs TNP CSF Glucose 192 H D CSF Total Protein 72 H CSF H.influenzae B Ag Negative CSF N.meningit ACY/W135 Negative CSF N.mening B/E.coli K1 Negative CSF Strep B Antigen Negative CSF Strep pneumoniae Ag Negative HIV 1&2 Ag/Ab, 4th Gen NON-REACTIVE 04/14/24 04:57 WBC 16.2 H RBC 3.09 L Hgb 8.8 L Hct 26.9 L MCV 87 MCH 28.5 MCHC 32.7 RDW Std Deviation 49.5 H Plt Count 325 Neut % (Auto) 67 Lymph % (Auto) 5 L [place] % (Auto) 12 Eos % (Auto) 0 Baso % (Auto) 0 Neut # (Auto) 10.8 H Lymph # (Auto) 0.9 L [place] # (Auto) 2.0 H Eos # (Auto) 0.0 Baso # (Auto) 0.1 Immature Gran # (Auto) 2.44 H Absolute Nucleated RBC 0.55 H Immature Gran % 15 H Nucleated RBC % 3 H Smear Path Review ESR 68 H Sodium 133 L Potassium 3.9 Chloride 93 L Carbon Dioxide 22.9 Anion Gap 17 H BUN 79 H Creatinine 6.1 H* D Estim Creat Clear Calc 9.3 L eGFR 7 L* BUN/Creatinine Ratio 13 Glucose 316 H Calculated Osmolality 302 H Calcium 9.7 Corrected Calcium 9.7 Phosphorus 4.6 Magnesium 2.6 Total Bilirubin 0.2 L AST 12 ALT 10 Alkaline Phosphatase 92 C-Reactive Prot, Quant 25.6 H Total Protein 8.0 Albumin 4.0 D Globulin 4.0 H Albumin/Globulin Ratio 1.0 L CSF Appearance CSF Color CSF WBC CSF RBC CSF Cell Count Tube # CSF Mononuclear WBCs CSF Polynuclear WBCs CSF Glucose CSF Total Protein CSF H.influenzae B Ag CSF N.meningit ACY/W135 CSF N.mening B/E.coli K1 CSF Strep B Antigen CSF Strep pneumoniae Ag HIV 1&2 Ag/Ab, 4th Gen ABG Interpretation ABG results: 04/05/24 04/06/24 04/06/24 13:11 05:17 13:37 ABG pH 7.23 L 7.23 L ABG pCO2 39 31 L ABG pO2 54 L* 70 L ABG HCO3 16 L 13 L ABG O2 Saturation 86 L 92 ABG Base Excess -11 L -13 L VBG pH 7.23 L VBG pCO2 34 L VBG pO2 35 VBG Base Excess -13 L 04/06/24 04/07/24 04/08/24 16:56 12:14 14:46 ABG pH 7.42 D 7.39 7.36 ABG pCO2 35 40 44 ABG pO2 69 L 79 L 40 L* D ABG HCO3 23 24 25 ABG O2 Saturation 94 94 71 L ABG Base Excess -2 -1 -1 VBG pH VBG pCO2 VBG pO2 VBG Base Excess 04/08/24 04/08/24 04/10/24 16:20 17:19 09:05 ABG pH 7.34 L 7.35 Cancelled ABG pCO2 46 45 Cancelled ABG pO2 36 L* 113 H D Cancelled ABG HCO3 25 25 Cancelled ABG O2 Saturation 63 L 97 Cancelled ABG Base Excess -1 -1 Cancelled VBG pH VBG pCO2 VBG pO2 VBG Base Excess 04/10/24 04/10/24 04/10/24 09:41 11:45 14:26 ABG pH 7.10 L* D 7.12 L* 7.20 L ABG pCO2 75 H* D 73 H* 58 H D ABG pO2 71 L D 75 L 78 L ABG HCO3 23 24 23 ABG O2 Saturation 89 L 90 L 93 ABG Base Excess -7 L -6 L -5 L VBG pH VBG pCO2 VBG pO2 VBG Base Excess 04/10/24 04/11/24 04/11/24 15:21 05:29 17:04 ABG pH 7.25 L 7.40 D 7.39 ABG pCO2 52 H 40 D 40 ABG pO2 90 93 74 L ABG HCO3 23 25 24 ABG O2 Saturation 95 98 93 ABG Base Excess -5 L 0 -1 VBG pH VBG pCO2 VBG pO2 VBG Base Excess 04/12/24 04/12/24 05:23 11:35 ABG pH 7.41 7.40 ABG pCO2 39 40 ABG pO2 147 H D 91 D ABG HCO3 25 25 ABG O2 Saturation 98 96 ABG Base Excess 0 0 VBG pH VBG pCO2 VBG pO2 VBG Base Excess Quality Measures Quality Measures VTE prophylaxis Advance care planning discussed with:: patient Assessment & Plan Assessment Current Active Medications: Generic Name Dose Route Start Last Admin Trade Name Gaboq PRN Reason Stop Dose Admin Acetaminophen 650 mg 04/05/24 23:06 Acetaminophen 325 Mg Tablet PO 05/05/24 23:05 Q6H PRN PAIN SCALE 1-3 (mild Acetaminophen 650 mg 04/05/24 23:06 Acetaminophen 325 Mg Tablet PO 05/05/24 23:05 Q6H PRN Fever >100 Acetaminophen 1,000 mg 04/13/24 11:30 04/13/24 14:29 Acetaminophen 500 Mg Tablet PO 04/18/24 11:31 1,000 mg QDAY@1130 DELMY Administration Albuterol/Ipratropium 3 ml 04/10/24 11:45 04/14/24 06:27 Albuterol/Ipratropium (Duoneb) Rt Princess 3 Ml Nebu INH 05/10/24 11:44 3 ml Q4HRRT DELMY Administration Aspirin 325 mg 04/12/24 10:15 04/14/24 08:32 Aspirin 325 Mg Tablet NG 05/12/24 10:14 325 mg QDAY DELMY Administration Atorvastatin Calcium 80 mg 04/11/24 21:00 04/13/24 21:50 Atorvastatin Calcium 20 Mg Tablet NG 05/11/24 20:59 80 mg HS DELMY Administration Calcium Carbonate 600 mg 04/06/24 14:45 04/14/24 08:32 Calcium Carbonate 600 Mg Tablet PO 05/06/24 14:44 600 mg BID DELMY Administration Clopidogrel Bisulfate 75 mg 04/12/24 09:00 04/14/24 08:32 Clopidogrel Bisulfate 75 Mg Tablet NG 05/12/24 08:59 75 mg QDAY DELMY Administration Dextrose 25 ml 04/07/24 10:52 Dextrose 50%-Water Inj 50 Ml Syringe IV 05/07/24 10:51 Q15MIN PRN BG 50-70 responsive npo pt Dextrose 50 ml 04/07/24 10:52 Dextrose 50%-Water Inj 50 Ml Syringe IV 05/07/24 10:51 Q15MIN PRN BG <50 OR BG <70 & pt unresponsive Diphenhydramine HCl 25 mg 04/13/24 11:30 04/13/24 14:29 Diphenhydramine Elix 25 Mg/10 Ml Udc NG 04/18/24 11:31 25 mg QDAY@1130 DLEMY Administration Glucagon 1 mg 04/07/24 10:52 Glucagon Inj 1 Mg Vial IM Q15MIN PRN BG <70, and no IV access Heparin Sodium (Porcine) 3,300 unit 04/06/24 15:03 04/13/24 10:53 Heparin Sod Inj 1000 Unit/Ml Vial 10 Ml INDWELLCAT 04/20/24 15:02 3,300 unit PRN PRN Administration DIALYSIS Heparin Sodium (Porcine) 5,000 unit 04/09/24 08:00 04/14/24 05:32 Heparin Sod Inj 5000 Unit/Ml Vial SC 04/23/24 07:59 5,000 unit Q8HR DELMY Administration Albumin Human 25 gm in 100 mls @ 100 mls/min 04/06/24 08:27 04/13/24 08:21 Albuminar-25 Ivpb IV 100 mls/min PRN PRN Administration DIALYSIS Dexmedetomidine/Sodium Chloride 200 mcg in 50 mls @ 5.31 mls/hr 04/08/24 09:17 04/11/24 05:00 Precedex Ivpb IV 05/08/24 09:16 0 mcg/kg/hr .Q9H25M PRN 0 mls/hr Per PROTOCOL Titration Protocol 0.2 MCG/KG/HR Norepinephrine/Dextrose 8 mg in 250 mls @ 9.956 mls/hr 04/08/24 09:53 04/14/24 06:00 Levophed In D5w 8mg/250ml IV 05/08/24 09:52 0.01 mcg/kg/min .Q24H PRN 1.991 mls/hr PER PROTOCOL Titration Protocol 0.05 MCG/KG/MIN Methylprednisolone Sodium 104 mls @ 104 mls/hr 04/09/24 12:00 04/10/24 13:27 Succinate 250 mg/ Sodium IV 04/16/24 11:59 Not Given Chloride Q6HR DELMY Fentanyl Citrate 2,500 mcg in 250 mls @ 2.5 mls/hr 04/10/24 09:47 Sublimaze Inj 2,500 Mcg/250 Ml Bag IV 04/15/24 09:46 .Q24H PRN PER PROTOCOL Protocol 25 MCG/HR Propofol 1,000 mg in 100 mls @ 2.955 mls/hr 04/10/24 09:50 Diprivan Ivpb IV 05/10/24 09:49 .Q24H PRN PER PROTOCOL Protocol 5 MCG/KG/MIN Valproic Acid 750 mg/ Sodium 57.5 mls @ 55 mls/hr 04/11/24 14:00 04/14/24 05:31 Chloride IV 05/08/24 21:59 55 mls/hr Q8HR DELMY Administration Phenylephrine HCl 40 mg/ 100 mls @ 1.422 mls/hr 04/11/24 20:11 Sodium Chloride IV 05/11/24 20:10 .Q24H PRN Per Cardiogenic Protocol Protocol 0.1 MCG/KG/MIN Meropenem 500 mg/ Sodium 50 mls @ 100 mls/hr 04/13/24 10:00 04/13/24 11:36 Chloride IV 04/20/24 09:59 100 mls/hr QDAY DELMY Administration Immune Globulin 20 gm/ Immune 250 mls @ 41.667 mls/hr 04/13/24 12:00 04/13/24 15:05 Globulin 5 gm/ IV IV 04/18/24 17:59 41.667 mls/hr Miscellaneous Supplies QDAY@1200 DELMY Administration Insulin Glargine 60 unit 04/14/24 09:00 04/14/24 08:33 Insulin Glargine (Lantus) 5 Unit/0.05 Ml (Per 5 Units) SC 05/14/24 08:59 60 unit QDAY DELMY Administration Insulin Human Lispro 0 unit 04/10/24 14:00 04/14/24 05:32 Insulin Lispro (Admelog) 1 Unit/0.01 Ml Unit SC 05/10/24 13:59 6 unit Q4HR DELMY Administration Protocol Labetalol HCl 10 mg 04/05/24 23:55 Labetalol Inj 5 Mg/Ml Vial 20 Ml IVP 05/05/24 23:54 X1 PRN BP >220/110 Lidocaine HCl 9 ml 04/06/24 11:00 Lidocaine Inj Pf 1% 5 Ml Vial INFL X1 PRN LOCAL ANESTHESIA Protocol Metoprolol Succinate 50 mg 04/12/24 19:00 04/14/24 08:32 Metoprolol Succinate Xl 25 Mg Tabcr GT 05/12/24 18:59 50 mg QDAY DELMY Administration Ondansetron HCl 4 mg 04/05/24 23:06 Ondansetron Inj 2 Mg/Ml Inj 2 Ml IV 05/05/24 23:05 Q6H PRN NAUSEA OR VOMITING Protocol Pantoprazole Sodium 40 mg 04/06/24 09:00 04/14/24 08:32 Pantoprazole Inj 40 Mg Vial IVP 05/06/24 08:59 40 mg QDAY DELMY Administration Pharmacy Consult 1 each 04/09/24 08:54 Pharmacy Renal Dose Adjustment 1 Ea XX 05/08/24 08:59 QDAY PRN protocol Plan Ms. Vogt is a 64-year-old female with past medical history significant for hypertension, hyperlipidemia, type 2 diabetes, nephrolithiasis, history of CVA with residual deficit on the left side (2017). Patient presented to the emergency department 04/05/24 due to altered mental status and slurred speech, stroke alert was called, MRI/MRA of the brain showed 20 mm of acute infarct of the anterior right brainstem at the pontine level and 14 mm acute infarct of the right basal ganglia. Patient became increasingly altered had increased bleeding higher oxygen requirements patient was switched from high flow to BiPAP and unable to saturate decision was made to upgrade the patient to to the ICU on 04/07/24 an recent acute CVA and the possibility of hemorrhagic conversion and also d patient was unable to protect her airway and was intubated on 04/10/2024 cardiology was consulted for elevated troponins. # Acute CVA # Acute encephalopathy #Acute respiratory failure- Pt is unable to protect her airway therefore intubated on 04/10 --Pt initially presented with altered mental status and high suspicion of meningitis. Pt patient was initially on IV antibiotics with cefepime and vancomycin which was DC'd on 04/11 due to negative blood cultures as well as CSF fluid cultures had no growth in 3 days however the Gram stain was positive for GPC. -Although CT of the head is negative , the MRI/MRA of the brain showed 12 mm acute infarct of the anterior right brainstem (pontine level), 14 mm acute infarct of right basal ganglia. -Patient also underwent EEG which showed diffuse slowing, suggestive of encephalopathy of metabolic versus degenerative versus vascular origin without epileptic waveforms. Per neurorecommendations valproate was started. -For acute CVA patient is on aspirin 325 mg, clopidogrel 75 mg and atorvastatin 80 mg -Neurology is following #elevated troponins, NSTEMI type ll On admissions patient's troponin were 1.319-> 1.271- On 04/10 troponins trend is 0.0.641-> 0.983-> 1.814-> 1.854 -Unable to assess if patient has chest pain or not due to patient was intubated initially sedated however even though currently patient is off sedation she is still obtunded and unable to follow commands or wake up. -Elevated troponins are likely secondary to NSTEMI type II in the setting of demand ischemia due to patient's acute illness requiring intubation and stroke. -Echo completed on 04/08/2024 findings include:Negative bubble study Normal LV size and wall thickness. Estimated EF 55-60 %. RV is normal in size and systolic function. Trace MR. -Repeat EKG does not evident of ischemic UT. Therefore urgent cardiac catheterization is not needed at this time. When patient is improved from acute CVA then further workup and history will be repeated Recommendations include to continue aspirin, statin, and beta-vero if blood pressure is permissible -Patient currently does not require heparin drip due to CVA and blood found during bronchoscopy -No further troponin trend is recommended #New onset A-fib with RVR -On 04/11 patient was found to be in A-fib with RVR with heart rate up to 170, blood pressure at the time was 110/70 -Patient was started on amiodarone drip along with bolus amiodarone was given as well as metoprolol 2.5 Mg IV x 1 -[id number] score is 6, however with hold anticoagulation at this time due to findings of bronchoscopy and acute CVA. -Patient is to be transitioned to metoprolol succinate 50 XL GT after the current amnio drip finishes it can be turned off -Keep potassium above 4 and magnesium above 2 at all times #leukocytosis #unknown source -Pt spiked a fever and leukocytosis is uptrending. - CSF fluid , BC , urine culture, MRSA are all negative, CXR does not show pneumonia, -Pt is started on IV antibiotics with meropenem -ID is consulted and following #End-stage renal disease on hemodialysis-new onset -Continue dialysis as per schedule -associate manager affiliate marketing Dr. Sheridan is following catheter placed on 04/06/2024 #Nephrolithiasis -ultrasound showed 10 mm and 14 mm stones on the left side without hydronephrosis. - recommended outpatient workup #primary hypertension #Hyperlipidemia -Due to stroke patient was allowed permissive hypertension with the parameters in place labetalol 5 mg is as needed for systolic blood pressure above 180 -current BP is stable 133/69 -For hyperlipidemia patient is on atorvastatin 80mg HS #type 2 Diabetes mellitus Hemoglobin A1c is 5.9 -Patient is home insulin is glargine 60 units -Patient is started on insulin sliding scale and hypoglycemia protocol is in place Assessment and plan discussed with my attending physician Dr. Huber Lomax (PGY-[id number])- Internal medicine resident There is a high probability of sudden, clinically significant or life threatening deterioration in the patient condition which required the highest level of physician preparedness to intervene urgently. I have personally spent 35 minutes of critical care time, exclusive of time spent on any procedures, in evaluation and management of this critically ill patient. Attending Provider Attestation/Addendum I have personally seen and examined the patient separately on the above date of service and discussed the plan of care with the resident. I reviewed the resident Dr. Maico Lomax consultation progress note and agree with the resident findings and plan in the note above and have also edited the documentation to reflect my findings and plan. Patient did have 04/12/2024 night and WBC increased to 17,000 and are now decreasing it to 16,000. Primary team starting the patient on antibiotics for sepsis of unknown source. Telemetry reviewed and patient is no longer in atrial fibrillation and is in intermittent sinus rhythm as well as sinus tachycardia. Amiodarone drip was completed as per protocol. Recommended increase metoprolol XL to 50 mg once daily for now for rate control as the blood pressure is acceptable. Patient will need anticoagulation for the atrial fibrillation and recommend to discuss with neurology regarding starting anticoagulation for the patient if it is not contraindicated with her recent acute stroke . Presently patient is on aspirin and Plavix for the recent acute stroke Keep potassium greater than 4 and magnesium greater than 2.0 at all times. Patient still continues to be intubated and sedated during my exam in the has some purposeful movements at times. Neurology will follow the patient in the CSF analysis was not conclusive. Patient did have some myoclonic jerks which are better and recommended high-dose steroids with IVIG. Patient condition continues to be critical and overall prognosis appears to be poor which was discussed with the family Chad Ngo M.D. Interventional Cardiology.
[2024-04-14] MEDS: MEROPENEM INJ 500 MG in SODIUM CHLORIDE 0.9% (P) 50 ML 100 MG IV (12:06)
[2024-04-14] MEDS: DiphenhydrAMINE ELIX 25 MG/10 ML UDC NG (12:07)
[2024-04-14] MEDS: ACETAMINOPHEN 500 MG TABLET 1000 MG PO (12:07)
[2024-04-14 13:19] LABS: Alanine Aminotransferase < 7 U/L (10-49); Albumin/Globulin Ratio 1.1 (1.2-2.2); Alkaline Phosphatase 85 U/L (46-116); Anion Gap 16 (7-16); Aspartate Amino Transferase 12 U/L (0-34); BUN/Creatinine Ratio 12 Ratio (12-20); Bilirubin,Total 0.2 mg/dL (0.3-1.2); Blood Urea Nitrogen 87 mg/dL (9-23); Carbon Dioxide 22.4 mMol/L (20.0-31.0); Chloride 96 mMol/L (98-107); Creatinine (Component) 7.1 mg/dL (0.6-1.3); Globulin 3.8 gm/dL (2.3-3.5); Glucose 300 mg/dL (74-106); Osmolality,Calculated 305 (275-295); Potassium 4.3 mMol/L (3.4-5.1); Sodium 134 mMol/L (136-145); Total Protein 7.8 gm/dL (5.7-8.2); eGFR 6 See Note
[2024-04-14 13:49] LABS: Albumin, CSF 25.6 mg/dL (8.0-42.0); IgG Index, CSF 0.47 (<0.70); IgG, CSF 4.9 mg/dL (0.8-7.7); IgG, Serum 1010 mg/dL (600-1540); Synthesis Rate IgG, CSF -2.2 mg/24 h (-9.9 TO +3.3)
--- NOTE | 2024-04-14 14:16 | ESPR_ITS ---
<Statement entered by Mallory Barrett MD - 04/15/24 10:45> TOTAL TIME: 45MINUTES ON DIRECT MEDICAL CARE, MANAGEMENT - COORDINATION AND COUNSELING > 50% OF TOTAL TIME I saw and evaluated the patient. I reviewed the resident?s note and agree with findings and plan as documented in the resident?s note. Unfortunately despite being off sedation the patient is still not woken up. CSF studies are unremarkable for infectious encephalitis or meningitis. We continue to treat on a presumptive basis for autoimmune encephalitis but that diagnosis is not confidently confirmed. Extensive review of chart and images was completed. She has progressive pneumonic infiltrates including development of a new right lower lobe cavitary subpleural lesion when compared to prior CT images about a month and a half ago. We will broaden our infectious disease workup to include fungal in case she has cryptococcus. I will consider empiric Diflucan. Valley fever testing is negative. I spoke directly with Dr. Lamas regarding increasing uremia that seems to be difficult to manage with dialysis. She plans on more aggressive dialysis. Continue full care and support. Autoimmune workup has not returned yet. 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 Upon arrival to the ED, stroke alert was called. CT head negative, however patient was outside of TNK window. MRI brain recommended but given that patient continues to have altered mental status and cannot follow commands in addition to requiring HFNC, will not be able to obtain. Echo obtained on 04/05, negative bubble study and EF 55 to 60%. Carotid Doppler was poor study due to lack of patient cooperation. Labs obtained in ED showed creatinine of 5.4, which is significantly elevated from baseline of 1.0. Thus, TDC was placed and patient has since received 2 dialysis sessions (04/06, 04/07), however has not had any improvement in her mental status. Throughout hospital course, patient has had 3 rapid responses. On 04/06 rapid response for fever of 103 ?F, 04/07 for episode of twitching on right side of face, and again on 04/07 for episode of apnea for few seconds after dose of lorazepam. ICU was consulted given that patient has had increased oxygen requirements and altered mental status and evaluated if patient will require closer monitoring to protect her airways. 04/08: No acute overnight events reported. She was noted to have increased oxygen requirements after coming back from repeat CT head. She was originally on HFNC at 30 L/min, 50% FiO2 and is currently on 30 L/min and now 80% FiO2. Repeat CT head showed no gross hemorrhage or mass effect but patient motion is significantly degraded image quality. Patient noted to have less spontaneous movements compared to yesterday and contacted MRI regarding possibility of obtaining imaging. However, they will not be able to accommodate patients on high flow nor on BiPAP. Underwent third session of hemodialysis today, with removal of 3 L of fluid. Blood pressure dropped to 86/48 and was given Levophed. 04/09: No acute overnight events reported. Only had 30 cc of urine output the entire shift, 2.5 cc/h. Did not require Levophed or Precedex. Underwent lumbar puncture and evening of 04/08, noted to have opening pressure at 33 cm H2O and elevated protein and glucose. Also had an EEG that showed diffuse slowing, suggestive of diffuse encephalopathy of metabolic versus degenerative versus vascular origin. No epileptic waveforms noted but given that patient's right sided facial twitching and spontaneous movements have improved, will continue with valproate per recs. Neurology also recommended starting 1 g Solu-Medrol daily. Oxygen needs decreased from HFNC to oxy mask, and again attempted to obtain MRI but were unable due to oxy mask and body habitus. NG tube placed to start feeds given the patient has been n.p.o. since admission and will increase glargine from 10 to 15 units to accommodate. 04/10: No acute overnight events reported. At 9:30 AM, rapid response called due to O2 saturation of 86% on 15 L nonrebreather. Suspect possible aspiration event and RT subsequently suctioned with increase in O2 saturation to high 80s on 15 L. Upon assessment, GCS of 3 and determined that patient unable to protect her airways and was upgraded to ICU for RSI. At around 10:30 AM, patient underwent successful RSI. A.M. labs showed glucose of 596 with anion gap of 17 and beta hydroxybutyrate of 2.1, suspect due to recently starting high-dose steroids. Glargine was originally increased to accommodate from 10 to 15 units, but patient will now be started on 20 units glargine daily. ABG obtained prior to intubation showed pH 7.1, pCO2 75, and pO2 71. Repeat after intubation showed pH 7.12, pCO2 73, and pO2 75. Subsequent ABG ordered and will follow-up. Given that patient is now intubated, revisited MRI and we will attempt to obtain again in the afternoon. Will also attempt hemodialysis later today. 04/11: No acute overnight events reported. MRI was obtained on 04/10 that showed acute infarct of anterior right brainstem (pontine level) and acute infarct of right basal ganglia. Also underwent dialysis yesterday but was only able to tolerate 2 hours and 15 minutes with removal of 700 mL due to hypotension (78/41) while on Levophed. Underwent bronchoscopy which showed few areas of submucosal bleeding noted as well as nilson blood throughout most of the airway, however serial lavages returned clear fluid. Cheetah in evening showed baseline of HR 89, SVI 47, CI 4.2 and HR 86, SVI 43, CI 3.8 after PLR indicating that patient is not fluid responsive. Noted to become agitated in evening (opening eyes and fighting vent) with BP spike to 192/105. Precedex was started and was on for 2 hours and BP resolved without any other intervention. UOP 15 cc entire shift. Spoke to nephrology today and no HD, will reassess tomorrow. Blood sugar better controlled, in 300s. Will increase glargine from 20 to 40 units starting today. Carotid Doppler obtained showing 30 to 50% stenosis of right ICA and 10 to 20% stenosis of left ICA. 04/12: Noted to have new onset A-fib with RVR at 70 p.m. on 04/11 with heart rate in 160s to 170s. Given metoprolol to tartrate 2.5 mg IV x 1, amiodarone bolus, and then amiodarone drip and patient converted to sinus tachycardia. In AM upon evaluation, patient remains in sinus tachycardia. Otherwise, no other overnight events. Did not require pressors or Precedex overnight. UOP noted to be 50 cc per entire shift. Plans to undergo fifth session of hemodialysis tomorrow. Blood sugars remain elevated in low to mid 300s after changing glargine from 20 to 40 units and continues to receive 6 units SSI every 4 hours. Will increase glargine to 50 units daily and continue SSI. Ventilator settings of VT 350, RR 36, PEEP 14, FiO2 45% were changed to RR of 24, PEEP of 10, and FiO2 of 35% given ABG that showed pH 7.41, pCO2 39, and pO2 147. Repeat ABG ordered to assess changes in ventilator settings. Remained afebrile overnight but WBC noted to increase from 9.9 to 15.0. Thus, repeat CXR obtained and showed improvement in bilateral infiltrates paired to previous CXR in 04/10. 04/14: No acute overnight events noted. HR remains in sinus tachycardia but has not gone into atrial fibrillation. Currently on metoprolol succinate 50 mg GT daily. No on pressors or sedation. Started on insulin drip as blood sugars remain in 350s with 60 units glargine daily with SSI. UOP also continues to be low with 5-10 cc entire shift. Spoke to nephrology and will attempt hemodialysis tomorrow while increasing rate of filtration and size of filter. Today will be second day of IVIG. Ventilator settings remain the same at VT 350, RR 36, PEEP 14, and FiO2 45%. Repeat CXR showed improvement in infiltrates bilaterally. Exam Vital Signs Temp Pulse Resp BP Pulse Ox O2 Del Method O2 Flow Rate 98.2 F 112 H 25 H 104/62 92 L Mechanical Ventilation 13 04/14/24 07:00 04/14/24 10:20 04/14/24 10:20 04/14/24 10:17 04/14/24 10:20 04/14/24 07:00 04/12/24 06:00 FiO2 35 04/14/24 10:20 Narrative Exam General: Mechanically ventilated, not on sedation, not on pressors, not responding to questions/following commands HEENT: NC/AT, mucous membranes moist, bilateral sclera anicteric Cardiovascular: regular rate and rhythm, S1/S2 present, no murmurs appreciated Pulmonary: clear to auscultation bilaterally, no rales/rhonchi/wheezes Abdominal: Obese, soft, no guarding Musculoskeletal: no peripheral edema, dorsalis pedis pulses 2+ Skin: PIV, TDC, acanthosis nigricans in neck Neuro: ? E (2), V (T), M (4) -> GCS 7T ? Cranial reflex, pupillary light reflex, and gag reflex tact Objective Labs 04/14/24 04:57 04/15/24 05:09 Labs: Laboratory Results - last 24 hr 04/10/24 04/13/24 04/13/24 10:40 04:42 18:00 WBC RBC Hgb Hct MCV MCH MCHC RDW Std Deviation Plt Count Neut % (Auto) Lymph % (Auto) Curry % (Auto) Eos % (Auto) Baso % (Auto) Neut # (Auto) Lymph # (Auto) Curry # (Auto) Eos # (Auto) Baso # (Auto) Immature Gran # (Auto) Absolute Nucleated RBC Immature Gran % Nucleated RBC % Smear Path Review Sent to Pathologist ESR Sodium Potassium Chloride Carbon Dioxide Anion Gap BUN Creatinine Estim Creat Clear Calc eGFR BUN/Creatinine Ratio Glucose Calculated Osmolality Calcium Corrected Calcium Phosphorus Magnesium Total Bilirubin AST ALT Alkaline Phosphatase C-Reactive Prot, Quant Total Protein Albumin Globulin Albumin/Globulin Ratio CSF Appearance Clear CSF Color Colorless CSF WBC 0 CSF RBC 34 CSF Cell Count Tube # Tube # 4 CSF Mononuclear WBCs TNP CSF Polynuclear WBCs TNP CSF Glucose 192 H D CSF Total Protein 72 H CSF H.influenzae B Ag Negative CSF N.meningit ACY/W135 Negative CSF N.mening B/E.coli K1 Negative CSF Strep B Antigen Negative CSF Strep pneumoniae Ag Negative HIV 1&2 Ag/Ab, 4th Gen NON-REACTIVE Misc Test Result Cancelled 04/14/24 04/14/24 04:57 12:22 WBC 16.2 H RBC 3.09 L Hgb 8.8 L Hct 26.9 L MCV 87 MCH 28.5 MCHC 32.7 RDW Std Deviation 49.5 H Plt Count 325 Neut % (Auto) 67 Lymph % (Auto) 5 L Curry % (Auto) 12 Eos % (Auto) 0 Baso % (Auto) 0 Neut # (Auto) 10.8 H Lymph # (Auto) 0.9 L Curry # (Auto) 2.0 H Eos # (Auto) 0.0 Baso # (Auto) 0.1 Immature Gran # (Auto) 2.44 H Absolute Nucleated RBC 0.55 H Immature Gran % 15 H Nucleated RBC % 3 H Smear Path Review ESR 68 H Sodium 133 L 134 L Potassium 3.9 4.3 Chloride 93 L 96 L Carbon Dioxide 22.9 22.4 Anion Gap 17 H 16 BUN 79 H 87 H Creatinine 6.1 H* D 7.1 H* D Estim Creat Clear Calc 9.3 L 8.0 L eGFR 7 L* 6 L* BUN/Creatinine Ratio 13 12 Glucose 316 H 300 H Calculated Osmolality 302 H 305 H Calcium 9.7 10.0 Corrected Calcium 9.7 10.0 Phosphorus 4.6 Magnesium 2.6 Total Bilirubin 0.2 L 0.2 L AST 12 12 ALT 10 < 7 L Alkaline Phosphatase 92 85 C-Reactive Prot, Quant 25.6 H Total Protein 8.0 7.8 Albumin 4.0 D 4.0 Globulin 4.0 H 3.8 H Albumin/Globulin Ratio 1.0 L 1.1 L CSF Appearance CSF Color CSF WBC CSF RBC CSF Cell Count Tube # CSF Mononuclear WBCs CSF Polynuclear WBCs CSF Glucose CSF Total Protein CSF H.influenzae B Ag CSF N.meningit ACY/W135 CSF N.mening B/E.coli K1 CSF Strep B Antigen CSF Strep pneumoniae Ag HIV 1&2 Ag/Ab, 4th Gen Misc Test Result ABG Interpretation ABG results: 04/05/24 04/06/24 04/06/24 13:11 05:17 13:37 ABG pH 7.23 L 7.23 L ABG pCO2 39 31 L ABG pO2 54 L* 70 L ABG HCO3 16 L 13 L ABG O2 Saturation 86 L 92 ABG Base Excess -11 L -13 L VBG pH 7.23 L VBG pCO2 34 L VBG pO2 35 VBG Base Excess -13 L 04/06/24 04/07/24 04/08/24 16:56 12:14 14:46 ABG pH 7.42 D 7.39 7.36 ABG pCO2 35 40 44 ABG pO2 69 L 79 L 40 L* D ABG HCO3 23 24 25 ABG O2 Saturation 94 94 71 L ABG Base Excess -2 -1 -1 VBG pH VBG pCO2 VBG pO2 VBG Base Excess 04/08/24 04/08/24 04/10/24 16:20 17:19 09:05 ABG pH 7.34 L 7.35 Cancelled ABG pCO2 46 45 Cancelled ABG pO2 36 L* 113 H D Cancelled ABG HCO3 25 25 Cancelled ABG O2 Saturation 63 L 97 Cancelled ABG Base Excess -1 -1 Cancelled VBG pH VBG pCO2 VBG pO2 VBG Base Excess 04/10/24 04/10/24 04/10/24 09:41 11:45 14:26 ABG pH 7.10 L* D 7.12 L* 7.20 L ABG pCO2 75 H* D 73 H* 58 H D ABG pO2 71 L D 75 L 78 L ABG HCO3 23 24 23 ABG O2 Saturation 89 L 90 L 93 ABG Base Excess -7 L -6 L -5 L VBG pH VBG pCO2 VBG pO2 VBG Base Excess 04/10/24 04/11/24 04/11/24 15:21 05:29 17:04 ABG pH 7.25 L 7.40 D 7.39 ABG pCO2 52 H 40 D 40 ABG pO2 90 93 74 L ABG HCO3 23 25 24 ABG O2 Saturation 95 98 93 ABG Base Excess -5 L 0 -1 VBG pH VBG pCO2 VBG pO2 VBG Base Excess 04/12/24 04/12/24 05:23 11:35 ABG pH 7.41 7.40 ABG pCO2 39 40 ABG pO2 147 H D 91 D ABG HCO3 25 25 ABG O2 Saturation 98 96 ABG Base Excess 0 0 VBG pH VBG pCO2 VBG pO2 VBG Base Excess Quality Measures Quality Measures VTE prophylaxis Advance care planning discussed with:: child Assessment & Plan Assessment Current Active Medications: Generic Name Dose Route Start Last Admin Trade Name Freq PRN Reason Stop Dose Admin Acetaminophen 650 mg 04/05/24 23:06 Acetaminophen 325 Mg Tablet PO 05/05/24 23:05 Q6H PRN PAIN SCALE 1-3 (mild Acetaminophen 650 mg 04/05/24 23:06 Acetaminophen 325 Mg Tablet PO 05/05/24 23:05 Q6H PRN Fever >100 Acetaminophen 1,000 mg 04/13/24 11:30 04/14/24 12:07 Acetaminophen 500 Mg Tablet PO 04/18/24 11:31 1,000 mg QDAY@1130 DELMY Administration Albuterol/Ipratropium 3 ml 04/10/24 11:45 04/14/24 10:19 Albuterol/Ipratropium (Duoneb) Rt Princess 3 Ml Nebu INH 05/10/24 11:44 3 ml Q4HRRT DELMY Administration Aspirin 325 mg 04/12/24 10:15 04/14/24 08:32 Aspirin 325 Mg Tablet NG 05/12/24 10:14 325 mg QDAY DELMY Administration Atorvastatin Calcium 80 mg 04/11/24 21:00 04/13/24 21:50 Atorvastatin Calcium 20 Mg Tablet NG 05/11/24 20:59 80 mg HS DELMY Administration Calcium Carbonate 600 mg 04/06/24 14:45 04/14/24 08:32 Calcium Carbonate 600 Mg Tablet PO 05/06/24 14:44 600 mg BID DELMY Administration Clopidogrel Bisulfate 75 mg 04/12/24 09:00 04/14/24 08:32 Clopidogrel Bisulfate 75 Mg Tablet NG 05/12/24 08:59 75 mg QDAY DELMY Administration Dextrose 25 ml 04/07/24 10:52 Dextrose 50%-Water Inj 50 Ml Syringe IV 05/07/24 10:51 Q15MIN PRN BG 50-70 responsive npo pt Dextrose 50 ml 04/07/24 10:52 Dextrose 50%-Water Inj 50 Ml Syringe IV 05/07/24 10:51 Q15MIN PRN BG <50 OR BG <70 & pt unresponsive Diphenhydramine HCl 25 mg 04/13/24 11:30 04/14/24 12:07 Diphenhydramine Elix 25 Mg/10 Ml Udc NG 04/18/24 11:31 25 mg QDAY@1130 DELMY Administration Glucagon 1 mg 04/07/24 10:52 Glucagon Inj 1 Mg Vial IM Q15MIN PRN BG <70, and no IV access Heparin Sodium (Porcine) 3,300 unit 04/06/24 15:03 04/13/24 10:53 Heparin Sod Inj 1000 Unit/Ml Vial 10 Ml INDWELLCAT 04/20/24 15:02 3,300 unit PRN PRN Administration DIALYSIS Heparin Sodium (Porcine) 5,000 unit 04/09/24 08:00 04/14/24 05:32 Heparin Sod Inj 5000 Unit/Ml Vial SC 04/23/24 07:59 5,000 unit Q8HR DELMY Administration Albumin Human 25 gm in 100 mls @ 100 mls/min 04/06/24 08:27 04/13/24 08:21 Albuminar-25 Ivpb IV 100 mls/min PRN PRN Administration DIALYSIS Dexmedetomidine/Sodium Chloride 200 mcg in 50 mls @ 5.31 mls/hr 04/08/24 09:17 04/11/24 05:00 Precedex Ivpb IV 05/08/24 09:16 0 mcg/kg/hr .Q9H25M PRN 0 mls/hr Per PROTOCOL Titration Protocol 0.2 MCG/KG/HR Norepinephrine/Dextrose 8 mg in 250 mls @ 9.956 mls/hr 04/08/24 09:53 04/14/24 06:00 Levophed In D5w 8mg/250ml IV 05/08/24 09:52 0.01 mcg/kg/min .Q24H PRN 1.991 mls/hr PER PROTOCOL Titration Protocol 0.05 MCG/KG/MIN Methylprednisolone Sodium 104 mls @ 104 mls/hr 04/09/24 12:00 04/10/24 13:27 Succinate 250 mg/ Sodium IV 04/16/24 11:59 Not Given Chloride Q6HR DELMY Fentanyl Citrate 2,500 mcg in 250 mls @ 2.5 mls/hr 04/10/24 09:47 Sublimaze Inj 2,500 Mcg/250 Ml Bag IV 04/15/24 09:46 .Q24H PRN PER PROTOCOL Protocol 25 MCG/HR Propofol 1,000 mg in 100 mls @ 2.955 mls/hr 04/10/24 09:50 Diprivan Ivpb IV 05/10/24 09:49 .Q24H PRN PER PROTOCOL Protocol 5 MCG/KG/MIN Valproic Acid 750 mg/ Sodium 57.5 mls @ 55 mls/hr 04/11/24 14:00 04/14/24 05:31 Chloride IV 05/08/24 21:59 55 mls/hr Q8HR DELMY Administration Phenylephrine HCl 40 mg/ 100 mls @ 1.422 mls/hr 04/11/24 20:11 Sodium Chloride IV 05/11/24 20:10 .Q24H PRN Per Cardiogenic Protocol Protocol 0.1 MCG/KG/MIN Meropenem 500 mg/ Sodium 50 mls @ 100 mls/hr 04/13/24 10:00 04/14/24 12:06 Chloride IV 04/20/24 09:59 100 mls/hr QDAY DELMY Administration Immune Globulin 20 gm/ Immune 250 mls @ 41.667 mls/hr 04/13/24 12:00 04/13/24 15:05 Globulin 5 gm/ IV IV 04/18/24 17:59 41.667 mls/hr Miscellaneous Supplies QDAY@1200 DELMY Administration Insulin Human Regular 100 unit in 100 mls @ 9.52 mls/hr 04/14/24 11:04 Myxredlin IV 05/14/24 11:03 .[id number] PRN PER PROTOCOL Protocol 0.1 UNIT/KG/HR Labetalol HCl 10 mg 04/05/24 23:55 Labetalol Inj 5 Mg/Ml Vial 20 Ml IVP 05/05/24 23:54 X1 PRN BP >220/110 Lidocaine HCl 9 ml 04/06/24 11:00 Lidocaine Inj Pf 1% 5 Ml Vial INFL X1 PRN LOCAL ANESTHESIA Protocol Metoprolol Succinate 50 mg 04/12/24 19:00 04/14/24 08:32 Metoprolol Succinate Xl 25 Mg Tabcr GT 05/12/24 18:59 50 mg QDAY DELMY Administration Ondansetron HCl 4 mg 04/05/24 23:06 Ondansetron Inj 2 Mg/Ml Inj 2 Ml IV 05/05/24 23:05 Q6H PRN NAUSEA OR VOMITING Protocol Pantoprazole Sodium 40 mg 04/06/24 09:00 04/14/24 08:32 Pantoprazole Inj 40 Mg Vial IVP 05/06/24 08:59 40 mg QDAY DELMY Administration Pharmacy Consult 1 each 04/09/24 08:54 Pharmacy Renal Dose Adjustment 1 Ea XX 05/08/24 08:59 QDAY PRN protocol Plan Sofiya Vogt is a 64-year-old female with a past medical history of 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 She was upgraded to ICU on 04/08 and then downgraded on 04/10. However, rapid response called on 04/10 for desaturation (see event note for details) and upgraded on 04/10 for airway protection requiring RSI. 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 CT head (04/05, 04/07): negative x2. MRI/MRA brain (04/10, 04/13): 12 mm acute infarct anterior R christine, 14 mm acute infarct R basal ganglia. EEG (04/08): diffuse slowing without epileptic waveforms. Lumbar puncture (04/08): glucose 148 H, protein 54 H, WBC 4 wnl, culture negative Lumbar puncture (04/13): glucose 192 H, protein 72 H, WBC 4, RBC 34, culture pending Carotid Duplex showed 30-50% stenosis of R ICA ? Neurology consulted, appreciate recommendations ? IVIG at 0.4 g/kg, based on ideal body weight (04/13-) ? Valproate IV every 8 hours ? Follow-up ZAINAB, ANCA, C3, C4 ? Follow-up repeat LP results and send outs #Ischemic stroke, right brainstem (pontine level), prior basal ganglia #History of stroke with residual left-sided deficits ? Aspirin 325 mg via NG daily ? Clopidogrel 75 mg via NG daily ? Atorvastatin 80 mg via NG daily Cardiovascular #ACS, NSTEMI #Elevated troponins, downtrended Elevated on admission, but decreased from 1.3 to 1.2 and were no longer trended. ST depressions seen on telemetry on 04/10 and repeat troponin of 0.64 that increased to 0.98 and plateaued at 1.8. Repeat EKG showed ST depressions in V2- V6 (most prominent in V4-6). ? Cardiology consulted, recommended aspirin, statin, and beta-vero if neurology is in agreement; no heparin drip and no LHC indicated at this time given patient's clinical status ? Troponins plateaued at 1.8 #A-fib with RVR, resolved 04/11, went into a-fib with RVR at 160-170 bpm. Given metoprolol tartrate 2.5 mg IV x 1, amiodarone bolus, and then amiodarone drip. ? Metoprolol succinate 50 mg GT daily Pulmonary #Acute hypoxic respiratory failure, secondary to ? aspiration pneumonitis After RR on 04/10, ABG prior to RSI: pH 7.1, pCO2 75, pO2 71 -> ABG after RSI + mechanical ventilation: pH 7.2, pCO2 58, and pO2 78. 04/11 AM ABG: pH 7.4, pCO2 40, pO2 93, which are much improved compared to prior. 04/12 AM ABG: pH 7.41, pCO2 39, pO2 147 -> ABG after ventilation changes: pH 7.4, pCO2 40, pO2 91. During intubation, foreign material (? tube feeds) were seen and could be possible etiology of desaturation. ? Mechanically ventilated: VT 350, RR 24, PEEP 10, FiO2 35% #Bilateral lung infiltrates, improved CT chest on admission showed bilateral pneumonia. CXR on 04/07 showed bilateral infiltrates that improved on 04/09. CXR on 04/10 after RR showed interval worsening of infiltrates compared to 04/09, with ABG at that time showing pH 7.1, pCO2 75, pO2 71. At time of rapid, patient on NG tube feedings and during intubation dark-colored material seen above trachea. Since already received 7 days antibiotics, current antibiotics will be for encephalitis versus meningitis. Sputum culture 04/10: mixed quentin Blood culture 04/06: no growth COVID, RSV, flu Cocci IgG/IgM, and MRSA nares negative ? Bronchial lavage culture 04/10: Staph epidermidis ? Follow-up repeat blood culture 04/10 Gastrointestinal #NG tube placed, 04/09 KUB showed Dobhoff NG tube in distal stomach/satisfactory position Dobhoff removed during MRI on 04/09 and replaced with another NG tube ? Pathology Tech referral to begin NG tube feedings -> HOLDING tube feeds ? NG tube in place, suctioning off #GI prophylaxis ? Pantoprazole 40 mg IV daily Renal #Acute renal failure Status post placement of TDC. Hemodialysis sessions 04/06, 04/07, 04/08, 04/10, 04/13. ? HD per nephrology recommendations ? Renally dose medications ? Avoid nephrotoxic agents #History of staghorn calculi #Nephrolithiasis, 10 mm and 14 mm lower pole left renal calculi without hydronephrosis seen on CT A/P ? Urology consulted, not surgical candidate at this time #Hypercalcemia, resolved #Hyperphosphatemia ? Continue hemodialysis Endocine #Type 2 diabetes mellitus A1c 7.6%. Blood sugars increased to 595 after receiving 1 g steroids on 04/09. Glargine originally at 10 units and eventually increased to 60 units. ? Insulin drip started 04/14 ? Every hour bedside glucose checks Heme #Chronic, normocytic anemia Slowly downtrending but stable. Has not had bloody bowel movements or gross hematuria. ? Continue to monitor Infectious disease #Sepsis, with unknown source 3/4 SIRS, without source: CXR shows improvement in b/l infiltrates and had full course of abx for PNA and meningitis r/o from LP results. WBC 16.2 (17.8, 15.0, 9.9), 100.6 F on 04/12. CRP 25.6, ESR 68. ? Meropenem 500 mg IV daily (04/13-), renally dosed ? Infectious disease consulted ? Follow-up beta-D glucan #? Meningitis, ruled-out ? Both LP show minimal to no WBC in CSF #Community acquired pneumonia, improved ? See respiratory above Urine culture 04/05 and 04/06: No growth Blood culture 04/05: No growth Sputum culture 04/06 and 04/10: Mixed quentin MRSA negative CSF culture: GPC, no growth Bronchial lavage 04/10: Staph epidermidis Blood culture 04/10: NGTD Ceftriaxone and azithromycin 04/05-04/06 Cefepime 04/06-04/11 Doxycycline 04/06-04/09 Vancomycin 04/10-04/11 Ampicillin 04/10 Meropenem 04/13- Hospital management: Disposition: intubated and mechanically ventilated Fluids: none Pressors: Levophed PRN Sedatives: Precedex PRN Diet: NPO, NG tube with suctioning off DVT prophylaxis: heparin SC q8hr GI prophylaxis: pantoprazole 40 mg IV Lines: 2 peripheral IV, TDC CODE STATUS: full code ----- Plan discussed with attending physician Dr. Nena Andino MD PGY-1 Internal Medicine
[2024-04-14] MEDS: PRE MIXED IV (14:22)
[2024-04-14] MEDS: IMMUNE GLOB GA CA IV (14:22)
[2024-04-14] MEDS: INSULIN REG 100 UNITS/100 ML 100 UNIT/100 ML BAG 9.52 UNIT IV (16:00)
[2024-04-14 16:24] LABS: Alanine Aminotransferase 7 U/L (10-49); Albumin/Globulin Ratio 1.1 (1.2-2.2); Alkaline Phosphatase 83 U/L (46-116); Anion Gap 14 (7-16); Aspartate Amino Transferase 16 U/L (0-34); BUN/Creatinine Ratio 11 Ratio (12-20); Bilirubin,Total 0.2 mg/dL (0.3-1.2); Blood Urea Nitrogen 85 mg/dL (9-23); Calcium 10.1 mg/dL (8.3-10.6); Calcium (Corrected) 10.1 mg/dL (8.5-10.1); Carbon Dioxide 21.2 mMol/L (20.0-31.0); Chloride 97 mMol/L (98-107); Creatinine (Component) 7.4 mg/dL (0.6-1.3); Estimated Creatinine Clearance 7.7 mL/min (>60); Globulin 3.8 gm/dL (2.3-3.5); Glucose 325 mg/dL (74-106); Osmolality,Calculated 303 (275-295); Potassium 4.5 mMol/L (3.4-5.1); Sodium 132 mMol/L (136-145); Total Protein 7.8 gm/dL (5.7-8.2); eGFR 6 See Note
--- NOTE | 2024-04-14 17:18 | PC.SS ---
Update: Patient remains on mechanical ventilator. Patient is not receiving sedation. Patient is not on pressor support. Feedings held at present time.
--- NOTE | 2024-04-14 17:53 | XR_ITS ---
Examination: AP chest single view Technique one AP portable upright chest single view Exam date and time: April 10, 2024 1804 hrs. Comparison January 10, 2025 Indications: Respiratory failure. Post intubation Findings: Mild to moderate enlargement left ventricle Pulmonary vascular congestion Accentuation basilar bronchovascular markings Endotracheal tube tip 4.2 cm above edwin Right internal jugular central line tip SVC satisfactory position Impression: Basilar bronchitis pattern Suspicious for mild heart failure
[2024-04-14] MEDS: ATORVASTATIN CALCIUM 20 MG TABLET 80 MG NG (21:42)
[2024-04-14 21:53] LABS: Alanine Aminotransferase 11 U/L (10-49); Albumin, Serum 4.1 gm/dL (3.4-4.8); Albumin/Globulin Ratio 0.9 (1.2-2.2); Alkaline Phosphatase 82 U/L (46-116); Anion Gap 15 (7-16); Aspartate Amino Transferase 32 U/L (0-34); BUN/Creatinine Ratio 12 Ratio (12-20); Bilirubin,Total 0.2 mg/dL (0.3-1.2); Blood Urea Nitrogen 89 mg/dL (9-23); Calcium 10.4 mg/dL (8.3-10.6); Calcium (Corrected) 10.4 mg/dL (8.5-10.1); Carbon Dioxide 22.6 mMol/L (20.0-31.0); Chloride 99 mMol/L (98-107); Creatinine (Component) 7.7 mg/dL (0.6-1.3); Estimated Creatinine Clearance 7.4 mL/min (>60); Globulin 4.6 gm/dL (2.3-3.5); Glucose 157 mg/dL (74-106); Osmolality,Calculated 304 (275-295); Potassium 4.4 mMol/L (3.4-5.1); Sodium 137 mMol/L (136-145); Total Protein 8.7 gm/dL (5.7-8.2); eGFR 5 See Note
--- NOTE | 2024-04-14 22:31 | PD.VPROG1 ---
Telemedicine visit statement This visit was conducted with the use of phone was obtained on 04/14/24 at 2231. Documentation for date of: 04/14/24 Subjective Subjective Interval history: Patient is in ICU, continue to remain intubated and on mechanical ventilatory support, no issues or concerns overnight. Only responds to painful stimuli. No longer needing pressors Virtual exam Vital Signs Temp Pulse Resp BP Pulse Ox O2 Del Method O2 Flow Rate 100.5 F H 116 H 26 H 99/69 90 L Mechanical Ventilation 13 04/14/24 20:00 04/14/24 22:15 04/14/24 18:50 04/14/24 22:15 04/14/24 22:15 04/14/24 08:00 04/12/24 06:00 FiO2 35 04/14/24 20:00 Objective Labs 04/14/24 04:57 04/14/24 21:16 Labs: Laboratory Results - last 24 hr 04/10/24 04/13/24 04/14/24 10:40 18:00 04:57 WBC 16.2 H RBC 3.09 L Hgb 8.8 L Hct 26.9 L MCV 87 MCH 28.5 MCHC 32.7 RDW Std Deviation 49.5 H Plt Count 325 Neut % (Auto) 67 Lymph % (Auto) 5 L [place] % (Auto) 12 Eos % (Auto) 0 Baso % (Auto) 0 Neut # (Auto) 10.8 H Lymph # (Auto) 0.9 L [place] # (Auto) 2.0 H Eos # (Auto) 0.0 Baso # (Auto) 0.1 Immature Gran # (Auto) 2.44 H Absolute Nucleated RBC 0.55 H Immature Gran % 15 H Nucleated RBC % 3 H ESR 68 H Sodium 133 L Potassium 3.9 Chloride 93 L Carbon Dioxide 22.9 Anion Gap 17 H BUN 79 H Creatinine 6.1 H* D Estim Creat Clear Calc 9.3 L eGFR 7 L* BUN/Creatinine Ratio 13 Glucose 316 H Calculated Osmolality 302 H Calcium 9.7 Corrected Calcium 9.7 Phosphorus 4.6 Magnesium 2.6 Total Bilirubin 0.2 L AST 12 ALT 10 Alkaline Phosphatase 92 C-Reactive Prot, Quant 25.6 H Total Protein 8.0 Albumin 4.0 D Globulin 4.0 H Albumin/Globulin Ratio 1.0 L HIV 1&2 Ag/Ab, 4th Gen NON-REACTIVE Misc Test Result Cancelled 04/14/24 04/14/24 04/14/24 12:22 15:40 21:16 WBC RBC Hgb Hct MCV MCH MCHC RDW Std Deviation Plt Count Neut % (Auto) Lymph % (Auto) [place] % (Auto) Eos % (Auto) Baso % (Auto) Neut # (Auto) Lymph # (Auto) [place] # (Auto) Eos # (Auto) Baso # (Auto) Immature Gran # (Auto) Absolute Nucleated RBC Immature Gran % Nucleated RBC % ESR Sodium 134 L 132 L 137 Potassium 4.3 4.5 4.4 Chloride 96 L 97 L 99 Carbon Dioxide 22.4 21.2 22.6 Anion Gap 16 14 15 BUN 87 H 85 H 89 H Creatinine 7.1 H* D 7.4 H* 7.7 H* Estim Creat Clear Calc 8.0 L 7.7 L 7.4 L eGFR 6 L* 6 L* 5 L* BUN/Creatinine Ratio 12 11 L 12 Glucose 300 H 325 H 157 H D Calculated Osmolality 305 H 303 H 304 H Calcium 10.0 10.1 10.4 Corrected Calcium 10.0 10.1 10.4 H Phosphorus Magnesium Total Bilirubin 0.2 L 0.2 L 0.2 L AST 12 16 32 ALT < 7 L 7 L 11 Alkaline Phosphatase 85 83 82 C-Reactive Prot, Quant Total Protein 7.8 7.8 8.7 H Albumin 4.0 4.0 4.1 Globulin 3.8 H 3.8 H 4.6 H Albumin/Globulin Ratio 1.1 L 1.1 L 0.9 L HIV 1&2 Ag/Ab, 4th Gen Misc Test Result ABG Interpretation ABG results: 04/05/24 04/06/24 04/06/24 13:11 05:17 13:37 ABG pH 7.23 L 7.23 L ABG pCO2 39 31 L ABG pO2 54 L* 70 L ABG HCO3 16 L 13 L ABG O2 Saturation 86 L 92 ABG Base Excess -11 L -13 L VBG pH 7.23 L VBG pCO2 34 L VBG pO2 35 VBG Base Excess -13 L 04/06/24 04/07/24 04/08/24 16:56 12:14 14:46 ABG pH 7.42 D 7.39 7.36 ABG pCO2 35 40 44 ABG pO2 69 L 79 L 40 L* D ABG HCO3 23 24 25 ABG O2 Saturation 94 94 71 L ABG Base Excess -2 -1 -1 VBG pH VBG pCO2 VBG pO2 VBG Base Excess 04/08/24 04/08/24 04/10/24 16:20 17:19 09:05 ABG pH 7.34 L 7.35 Cancelled ABG pCO2 46 45 Cancelled ABG pO2 36 L* 113 H D Cancelled ABG HCO3 25 25 Cancelled ABG O2 Saturation 63 L 97 Cancelled ABG Base Excess -1 -1 Cancelled VBG pH VBG pCO2 VBG pO2 VBG Base Excess 04/10/24 04/10/24 04/10/24 09:41 11:45 14:26 ABG pH 7.10 L* D 7.12 L* 7.20 L ABG pCO2 75 H* D 73 H* 58 H D ABG pO2 71 L D 75 L 78 L ABG HCO3 23 24 23 ABG O2 Saturation 89 L 90 L 93 ABG Base Excess -7 L -6 L -5 L VBG pH VBG pCO2 VBG pO2 VBG Base Excess 04/10/24 04/11/24 04/11/24 15:21 05:29 17:04 ABG pH 7.25 L 7.40 D 7.39 ABG pCO2 52 H 40 D 40 ABG pO2 90 93 74 L ABG HCO3 23 25 24 ABG O2 Saturation 95 98 93 ABG Base Excess -5 L 0 -1 VBG pH VBG pCO2 VBG pO2 VBG Base Excess 04/12/24 04/12/24 05:23 11:35 ABG pH 7.41 7.40 ABG pCO2 39 40 ABG pO2 147 H D 91 D ABG HCO3 25 25 ABG O2 Saturation 98 96 ABG Base Excess 0 0 VBG pH VBG pCO2 VBG pO2 VBG Base Excess Assessment & Plan Assessment Altered mental status: CSF analysis: Insignificant Based on the presentation of altered mental status and fascial brachial dyskinesia/seizures and abnormal MRI with the pontine lesion, 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 Continue with IVIG, completed 2 doses, will continue with 3 more doses and then consider adding Solu-Medrol 1 g once a day for 5 days with close monitoring of her blood sugar. continue with the Depakote for controlling myoclonic jerks in the face MRI brain showed acute infarction involving the pontine area and right basal ganglia. Continue with aspirin and Plavix 75 mg for prophylaxis along with statin. Noted significant intracranial stenosis in the MRA even though images are degraded from motion. (2) ANA LAURA (acute kidney injury): on dialysis (3) Non-ST elevation (NSTEMI) myocardial infarction: Continue with aspirin and statin (4) Acute hypoxic respiratory failure: Got intubated and on mechanical ventilatory support (5) Accelerated hypertension: Blood pressure before dialysis today was in the 200s Dropped following dialysis to the extent of needing Levophed
[2024-04-15] VITALS (141 sets, daily range): BP systolic 000–136; BP diastolic 46–84; PULSE 86–119; RESP 0–44; TEMP 36.9–38; O2SAT 87–100
[2024-04-15 01:07] LABS: Alanine Aminotransferase 12 U/L (10-49); Albumin, Serum 3.9 gm/dL (3.4-4.8); Albumin/Globulin Ratio 0.9 (1.2-2.2); Alkaline Phosphatase 77 U/L (46-116); Anion Gap 17 (7-16); Aspartate Amino Transferase 41 U/L (0-34); BUN/Creatinine Ratio 11 Ratio (12-20); Bilirubin,Total 0.2 mg/dL (0.3-1.2); Blood Urea Nitrogen 87 mg/dL (9-23); Calcium 10.1 mg/dL (8.3-10.6); Calcium (Corrected) 10.2 mg/dL (8.5-10.1); Carbon Dioxide 20.6 mMol/L (20.0-31.0); Chloride 99 mMol/L (98-107); Creatinine (Component) 7.9 mg/dL (0.6-1.3); Estimated Creatinine Clearance 7.2 mL/min (>60); Globulin 4.3 gm/dL (2.3-3.5); Glucose 157 mg/dL (74-106); Osmolality,Calculated 303 (275-295); Potassium 4.7 mMol/L (3.4-5.1); Sodium 137 mMol/L (136-145); Total Protein 8.2 gm/dL (5.7-8.2); eGFR 5 See Note
[2024-04-15] MEDS: ALBUTEROL/IPRATROPIUM (Duoneb) RT SOL 3 ML NEBU INH ×6 (03:13→23:20)
[2024-04-15] MEDS: HEPARIN SOD INJ 5000 UNIT/ML VIAL SC ×3 (05:50→22:51)
[2024-04-15] MEDS: VALPROATE SOD INJ 750 MG in SODIUM CHLORIDE 0.9% 50 ML 55 MG IV ×3 (05:50→22:51)
[2024-04-15 06:20] LABS: Albumin, Serum 2.5 g/dL (3.6-5.1)
[2024-04-15 06:42] LABS: Alanine Aminotransferase 11 U/L (10-49); Alkaline Phosphatase 81 U/L (46-116); Anion Gap 15 (7-16); Aspartate Amino Transferase 49 U/L (0-34); BUN/Creatinine Ratio 12 Ratio (12-20); Bilirubin,Total < 0.2 mg/dL (0.3-1.2); Calcium 9.9 mg/dL (8.3-10.6); Calcium (Corrected) 9.9 mg/dL (8.5-10.1); Carbon Dioxide 23.2 mMol/L (20.0-31.0); Chloride 96 mMol/L (98-107); Creatinine (Component) 8.6 mg/dL (0.6-1.3); Estimated Creatinine Clearance 6.6 mL/min (>60); Globulin 4.2 gm/dL (2.3-3.5); Glucose 172 mg/dL (74-106); Magnesium 2.7 mg/dL (1.6-2.6); Osmolality,Calculated 304 (275-295); Phosphorous 5.3 mg/dL (2.4-5.1); Potassium 4.7 mMol/L (3.4-5.1); Sodium 134 mMol/L (136-145); Total Protein 8.2 gm/dL (5.7-8.2); eGFR 5 See Note
[2024-04-15 06:44] LABS: Blood Urea Nitrogen 102 mg/dL (9-23)
[2024-04-15] MEDS: INSULIN REG 100 UNITS/100 ML 100 UNIT/100 ML BAG IV (07:11)
[2024-04-15 07:39] LABS: Basophils # (Auto) 0.2 Thou/mm3 (0.0-0.2); Basophils % (Auto) 1 % (0-2.5); Eosinophils % (Auto) 0 % (0-10); Hematocrit 24.7 % (36.0-46.0); Immature Granulocytes % (Auto) 15 % (0-0); Immature Granulocytes Auto 4.57 Thou/mm3 (0.00-0.00); Lymphocytes # (Auto) 1.7 Thou/mm3 (1.0-4.8); Lymphocytes % (Auto) 6 % (10-50); Mean Corpuscular Hemoglobin 27.9 pg (25.0-35.0); Mean Corpuscular Volume 87 fL (80-100); Monocytes # (Auto) 3.9 Thou/mm3 (0.0-0.8); Monocytes % (Auto) 13 % (0-12); Neutrophils # (Auto) 19.8 Thou/mm3 (1.8-7.7); Neutrophils % (Auto) 66 % (37-80); Nucleated Red Blood Cell % 2 /100 WBC (0); Platelet Count 362 Thou/mm3 (140-440); RDW Standard Deviation 50.4 fL (36.4-46.3); Red Blood Count 2.83 Miln/mm3 (4.00-5.20); White Blood Count 30.1 Thou/mm3 (3.6-11.0)
[2024-04-15 08:01] LABS: Hemoglobin 7.9 g/dL (12.0-16.0)
[2024-04-15] MEDS: CALCIUM CARBONATE 600 MG TABLET PO ×2 (09:35→21:31)
[2024-04-15] MEDS: PANTOPRAZOLE INJ 40 MG VIAL IVP (09:35)
[2024-04-15] MEDS: CLOPIDOGREL BISULFATE 75 MG TABLET NG (09:36)
[2024-04-15] MEDS: Aspirin 325 MG TABLET NG (09:36)
[2024-04-15] MEDS: ALBUMIN HUMAN 25% IVPB 25 GM/100 ML BTL IV (10:04)
--- NOTE | 2024-04-15 10:04 | ESPR_ITS ---
Documentation for date of: 04/15/24 Subjective Subjective Interval history: 04/15: overnight nurse reported that Pt's finger stick was very high despite Pt received 60 units of lantus. although Pt is not in DKA, insuling drip was started for better sugar control. Patient has made no improvements she is not on any sedation and does not follow commands. ICU team has open the discussion of goals of care discussion in the near future as patient continues to display no improvement. Patient is still on mechanical ventilation FiO2 is now at 40% PEEP of 10 respirations are 18 tidal volume 350. Patient WBC count has rapidly increased to 30 from 16 yesterday. Hemoglobin is 7.9 hematocrit is 24.7, potassium is 4.6. Exam Vital Signs Temp Pulse Resp BP Pulse Ox O2 Del Method O2 Flow Rate 100.4 F 111 H 30 H 76/57 L 95 Mechanical Ventilation 13 04/15/24 08:07 04/15/24 10:00 04/15/24 08:07 04/15/24 10:00 04/15/24 08:07 04/14/24 08:00 04/12/24 06:00 FiO2 40 04/15/24 08:07 Narrative Exam GENERAL: Pt is intubated on mechanical ventilation NEURO: unable to asses due to Pt is intubated and mechanical ventilated, does not follow commands HEENT: Atraumatic, Normocephalic. mucous membranes moist. Eyes open, symmetrical, & clear HEART: Normal Heart Sounds LUNGS: Clear to auscultation with no wheezing or crackles. ABDOMEN: soft, non-distended, non-tender, bowel sounds heard, no guarding or rebound tenderness SKIN: No Rash or ecchymoses EXTREMITIES: No edema, tenderness, able to move all 4 extremities, pedal pulses palpated Objective Labs 04/16/24 01:26 04/16/24 01:26 Labs: Laboratory Results - last 24 hr 04/08/24 04/13/24 04/14/24 18:00 18:00 12:22 WBC RBC Hgb Hct MCV MCH MCHC RDW Std Deviation Plt Count Neut % (Auto) Lymph % (Auto) [place] % (Auto) Eos % (Auto) Baso % (Auto) Neut # (Auto) Lymph # (Auto) [place] # (Auto) Eos # (Auto) Baso # (Auto) Immature Gran # (Auto) Absolute Nucleated RBC Immature Gran % Nucleated RBC % Sodium 134 L Potassium 4.3 Chloride 96 L Carbon Dioxide 22.4 Anion Gap 16 BUN 87 H Creatinine 7.1 H* D Estim Creat Clear Calc 8.0 L eGFR 6 L* BUN/Creatinine Ratio 12 Glucose 300 H Calculated Osmolality 305 H Calcium 10.0 Corrected Calcium 10.0 Phosphorus Magnesium Total Bilirubin 0.2 L AST 12 ALT < 7 L Alkaline Phosphatase 85 Total Protein 7.8 Albumin 4.0 Globulin 3.8 H Albumin/Globulin Ratio 1.1 L CSF Albumin 25.6 CSF IgG (MS) 4.9 IgG, Serum (MS) 1010 Serum Albumin 2.5 L CSF/Serum IgG Index 0.47 CSF/Serum IgG Synthesis -2.2 Misc Test Result Cancelled 04/14/24 04/14/24 04/15/24 15:40 21:16 00:28 WBC RBC Hgb Hct MCV MCH MCHC RDW Std Deviation Plt Count Neut % (Auto) Lymph % (Auto) [place] % (Auto) Eos % (Auto) Baso % (Auto) Neut # (Auto) Lymph # (Auto) [place] # (Auto) Eos # (Auto) Baso # (Auto) Immature Gran # (Auto) Absolute Nucleated RBC Immature Gran % Nucleated RBC % Sodium 132 L 137 137 Potassium 4.5 4.4 4.7 Chloride 97 L 99 99 Carbon Dioxide 21.2 22.6 20.6 Anion Gap 14 15 17 H BUN 85 H 89 H 87 H Creatinine 7.4 H* 7.7 H* 7.9 H* Estim Creat Clear Calc 7.7 L 7.4 L 7.2 L eGFR 6 L* 5 L* 5 L* BUN/Creatinine Ratio 11 L 12 11 L Glucose 325 H 157 H D 157 H Calculated Osmolality 303 H 304 H 303 H Calcium 10.1 10.4 10.1 Corrected Calcium 10.1 10.4 H 10.2 H Phosphorus Magnesium Total Bilirubin 0.2 L 0.2 L 0.2 L AST 16 32 41 H ALT 7 L 11 12 Alkaline Phosphatase 83 82 77 Total Protein 7.8 8.7 H 8.2 Albumin 4.0 4.1 3.9 Globulin 3.8 H 4.6 H 4.3 H Albumin/Globulin Ratio 1.1 L 0.9 L 0.9 L CSF Albumin CSF IgG (MS) IgG, Serum (MS) Serum Albumin CSF/Serum IgG Index CSF/Serum IgG Synthesis Misc Test Result 04/15/24 04/15/24 05:09 07:20 WBC 30.1 H D RBC 2.83 L Hgb 7.9 L Hct 24.7 L MCV 87 MCH 27.9 MCHC 32.0 RDW Std Deviation 50.4 H Plt Count 362 D Neut % (Auto) 66 Lymph % (Auto) 6 L [place] % (Auto) 13 H Eos % (Auto) 0 Baso % (Auto) 1 Neut # (Auto) 19.8 H Lymph # (Auto) 1.7 [place] # (Auto) 3.9 H Eos # (Auto) 0.0 Baso # (Auto) 0.2 Immature Gran # (Auto) 4.57 H Absolute Nucleated RBC 0.60 H Immature Gran % 15 H Nucleated RBC % 2 H Sodium 134 L Potassium 4.7 Chloride 96 L Carbon Dioxide 23.2 Anion Gap 15 BUN 102 H* Creatinine 8.6 H* D Estim Creat Clear Calc 6.6 L eGFR 5 L* BUN/Creatinine Ratio 12 Glucose 172 H Calculated Osmolality 304 H Calcium 9.9 Corrected Calcium 9.9 Phosphorus 5.3 H Magnesium 2.7 H Total Bilirubin < 0.2 L AST 49 H ALT 11 Alkaline Phosphatase 81 Total Protein 8.2 Albumin 4.0 Globulin 4.2 H Albumin/Globulin Ratio 1.0 L CSF Albumin CSF IgG (MS) IgG, Serum (MS) Serum Albumin CSF/Serum IgG Index CSF/Serum IgG Synthesis Misc Test Result ABG Interpretation ABG results: 04/05/24 04/06/24 04/06/24 13:11 05:17 13:37 ABG pH 7.23 L 7.23 L ABG pCO2 39 31 L ABG pO2 54 L* 70 L ABG HCO3 16 L 13 L ABG O2 Saturation 86 L 92 ABG Base Excess -11 L -13 L VBG pH 7.23 L VBG pCO2 34 L VBG pO2 35 VBG Base Excess -13 L 04/06/24 04/07/24 04/08/24 16:56 12:14 14:46 ABG pH 7.42 D 7.39 7.36 ABG pCO2 35 40 44 ABG pO2 69 L 79 L 40 L* D ABG HCO3 23 24 25 ABG O2 Saturation 94 94 71 L ABG Base Excess -2 -1 -1 VBG pH VBG pCO2 VBG pO2 VBG Base Excess 04/08/24 04/08/24 04/10/24 16:20 17:19 09:05 ABG pH 7.34 L 7.35 Cancelled ABG pCO2 46 45 Cancelled ABG pO2 36 L* 113 H D Cancelled ABG HCO3 25 25 Cancelled ABG O2 Saturation 63 L 97 Cancelled ABG Base Excess -1 -1 Cancelled VBG pH VBG pCO2 VBG pO2 VBG Base Excess 04/10/24 04/10/24 04/10/24 09:41 11:45 14:26 ABG pH 7.10 L* D 7.12 L* 7.20 L ABG pCO2 75 H* D 73 H* 58 H D ABG pO2 71 L D 75 L 78 L ABG HCO3 23 24 23 ABG O2 Saturation 89 L 90 L 93 ABG Base Excess -7 L -6 L -5 L VBG pH VBG pCO2 VBG pO2 VBG Base Excess 04/10/24 04/11/24 04/11/24 15:21 05:29 17:04 ABG pH 7.25 L 7.40 D 7.39 ABG pCO2 52 H 40 D 40 ABG pO2 90 93 74 L ABG HCO3 23 25 24 ABG O2 Saturation 95 98 93 ABG Base Excess -5 L 0 -1 VBG pH VBG pCO2 VBG pO2 VBG Base Excess 04/12/24 04/12/24 05:23 11:35 ABG pH 7.41 7.40 ABG pCO2 39 40 ABG pO2 147 H D 91 D ABG HCO3 25 25 ABG O2 Saturation 98 96 ABG Base Excess 0 0 VBG pH VBG pCO2 VBG pO2 VBG Base Excess Quality Measures Quality Measures VTE prophylaxis Advance care planning discussed with:: other Assessment & Plan Assessment Current Active Medications: Generic Name Dose Route Start Last Admin Trade Name Freq PRN Reason Stop Dose Admin Acetaminophen 1,000 mg 04/13/24 11:30 04/14/24 12:07 Acetaminophen 500 Mg Tablet PO 04/18/24 11:31 1,000 mg QDAY@1130 DELMY Administration Acetaminophen 650 mg 04/14/24 20:50 Acetaminophen 325 Mg Tablet PO 05/05/24 23:05 Q12HR PRN Fever >100, or pain 1-3 Albuterol/Ipratropium 3 ml 04/10/24 11:45 02/12/25 06:56 Albuterol/Ipratropium (Duoneb) Rt Princess 3 Ml Nebu INH 05/10/24 11:44 3 ml Q4HRRT DELMY Administration Aspirin 325 mg 04/12/24 10:15 04/15/24 09:36 Aspirin 325 Mg Tablet NG 05/12/24 10:14 325 mg QDAY DELMY Administration Atorvastatin Calcium 80 mg 04/11/24 21:00 04/14/24 21:42 Atorvastatin Calcium 20 Mg Tablet NG 05/11/24 20:59 80 mg HS DELMY Administration Calcium Carbonate 600 mg 04/06/24 14:45 04/15/24 09:35 Calcium Carbonate 600 Mg Tablet PO 05/06/24 14:44 600 mg BID DELMY Administration Clopidogrel Bisulfate 75 mg 04/12/24 09:00 04/15/24 09:36 Clopidogrel Bisulfate 75 Mg Tablet NG 05/12/24 08:59 75 mg QDAY DELMY Administration Dextrose 25 ml 04/07/24 10:52 Dextrose 50%-Water Inj 50 Ml Syringe IV 05/07/24 10:51 Q15MIN PRN BG 50-70 responsive npo pt Dextrose 50 ml 04/07/24 10:52 Dextrose 50%-Water Inj 50 Ml Syringe IV 05/07/24 10:51 Q15MIN PRN BG <50 OR BG <70 & pt unresponsive Diphenhydramine HCl 25 mg 04/13/24 11:30 04/14/24 12:07 Diphenhydramine Elix 25 Mg/10 Ml Udc NG 04/18/24 11:31 25 mg QDAY@1130 DELMY Administration Glucagon 1 mg 04/07/24 10:52 Glucagon Inj 1 Mg Vial IM Q15MIN PRN BG <70, and no IV access Heparin Sodium (Porcine) 3,300 unit 04/06/24 15:03 04/13/24 10:53 Heparin Sod Inj 1000 Unit/Ml Vial 10 Ml INDWELLCAT 04/20/24 15:02 3,300 unit PRN PRN Administration DIALYSIS Heparin Sodium (Porcine) 5,000 unit 04/09/24 08:00 04/15/24 05:50 Heparin Sod Inj 5000 Unit/Ml Vial SC 04/23/24 07:59 5,000 unit Q8HR DELMY Administration Albumin Human 25 gm in 100 mls @ 100 mls/min 04/06/24 08:27 04/13/24 08:21 Albuminar-25 Ivpb IV 100 mls/min PRN PRN Administration DIALYSIS Dexmedetomidine/Sodium Chloride 200 mcg in 50 mls @ 5.31 mls/hr 04/08/24 09:17 04/14/24 13:38 Precedex Ivpb IV 05/08/24 09:16 0 mcg/kg/hr .Q9H25M PRN 0 mls/hr Per PROTOCOL Titration Protocol 0.2 MCG/KG/HR Norepinephrine/Dextrose 8 mg in 250 mls @ 9.956 mls/hr 04/08/24 09:53 04/14/24 08:46 Levophed In D5w 8mg/250ml IV 05/08/24 09:52 0.05 mcg/kg/min .Q24H PRN 9.956 mls/hr PER PROTOCOL Titration Protocol 0.05 MCG/KG/MIN Methylprednisolone Sodium 104 mls @ 104 mls/hr 04/09/24 12:00 04/10/24 13:27 Succinate 250 mg/ Sodium IV 04/16/24 11:59 Not Given Chloride Q6HR DELMY Propofol 1,000 mg in 100 mls @ 2.955 mls/hr 04/10/24 09:50 Diprivan Ivpb IV 05/10/24 09:49 .Q24H PRN PER PROTOCOL Protocol 5 MCG/KG/MIN Valproic Acid 750 mg/ Sodium 57.5 mls @ 55 mls/hr 04/11/24 14:00 04/15/24 05:50 Chloride IV 05/08/24 21:59 55 mls/hr Q8HR DELMY Administration Phenylephrine HCl 40 mg/ 100 mls @ 1.422 mls/hr 04/11/24 20:11 Sodium Chloride IV 05/11/24 20:10 .Q24H PRN Per Cardiogenic Protocol Protocol 0.1 MCG/KG/MIN Immune Globulin 20 gm/ Immune 250 mls @ 41.667 mls/hr 04/13/24 12:00 04/14/24 14:22 Globulin 5 gm/ IV IV 04/18/24 17:59 41.667 mls/hr Miscellaneous Supplies QDAY@1200 DELMY Administration Insulin Human Regular 100 unit in 100 mls @ 9.52 mls/hr 04/14/24 11:04 04/15/24 10:02 Myxredlin IV 05/14/24 11:03 0.05 unit/kg/hr .[id number] PRN 4.76 mls/hr PER PROTOCOL Titration Protocol 0.1 UNIT/KG/HR Vancomycin/Sodium Chloride 200 mls @ 120 mls/hr 04/15/24 10:00 Vancomycin/Ns 1 Gm Ivpb IV 04/15/24 11:39 X1 ONE Labetalol HCl 10 mg 04/05/24 23:55 Labetalol Inj 5 Mg/Ml Vial 20 Ml IVP 05/05/24 23:54 X1 PRN BP >220/110 Lidocaine HCl 9 ml 04/06/24 11:00 Lidocaine Inj Pf 1% 5 Ml Vial INFL X1 PRN LOCAL ANESTHESIA Protocol Metoprolol Succinate 50 mg 04/12/24 19:00 04/14/24 08:32 Metoprolol Succinate Xl 25 Mg Tabcr GT 05/12/24 18:59 50 mg QDAY DELMY Administration Ondansetron HCl 4 mg 04/05/24 23:06 Ondansetron Inj 2 Mg/Ml Inj 2 Ml IV 05/05/24 23:05 Q6H PRN NAUSEA OR VOMITING Protocol Pantoprazole Sodium 40 mg 04/06/24 09:00 04/15/24 09:35 Pantoprazole Inj 40 Mg Vial IVP 05/06/24 08:59 40 mg QDAY DELMY Administration Pharmacy Consult 1 each 04/09/24 08:54 Pharmacy Renal Dose Adjustment 1 Ea XX 05/08/24 08:59 QDAY PRN protocol Pharmacy Consult 1 each 04/15/24 10:00 Vancomycin Pharmacy To Dose 1 Each Each IV 05/15/24 09:59 QDAY PRN CONSULT Plan Ms. 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 Patient presented to the emergency department 04/05/24 due to altered mental status and slurred speech, stroke alert was called, MRI/MRA of the brain showed 20 mm of acute infarct of the anterior right brainstem at the pontine level and 14 mm acute infarct of the right basal ganglia. Patient became increasingly altered had increased bleeding higher oxygen requirements patient was switched from high flow to BiPAP and unable to saturate decision was made to upgrade the patient to to the ICU on 04/07/24 an recent acute CVA and the possibility of hemorrhagic conversion and also d patient was unable to protect her airway and was intubated on 04/10/2024 cardiology was consulted for elevated troponins. # Acute CVA # Acute encephalopathy #Acute respiratory failure- Pt is unable to protect her airway therefore intubated on 04/10 -Pt initially presented with altered mental status and high suspicion of meningitis. Pt patient was initially on IV antibiotics with cefepime and vancomycin which was DC'd on 04/11 due to negative blood cultures as well as CSF fluid cultures had no growth in 3 days however the Gram stain was positive for GPC. -Although CT of the head is negative , the MRI/MRA of the brain showed 12 mm acute infarct of the anterior right brainstem (pontine level), 14 mm acute infarct of right basal ganglia. -Patient also underwent EEG which showed diffuse slowing, suggestive of encephalopathy of metabolic versus degenerative versus vascular origin without epileptic waveforms. Per neurorecommendations valproate was started. -For acute CVA patient is on aspirin 325 mg, clopidogrel 75 mg and atorvastatin 80 mg -Neurology is following #elevated troponins, NSTEMI type ll On admissions patient's troponin were 1.319-> 1.271- On 04/10 troponins trend is 0.0.641-> 0.983-> 1.814-> 1.854 -Unable to assess if patient has chest pain or not due to patient was intubated initially sedated however even though currently patient is off sedation she is still obtunded and unable to follow commands or wake up. -Elevated troponins are likely secondary to NSTEMI type II in the setting of demand ischemia due to patient's acute illness requiring intubation and stroke. -Echo completed on 04/08/2024 findings include:Negative bubble study Normal LV size and wall thickness. Estimated EF 55-60 %. RV is normal in size and systolic function. Trace MR. -Repeat EKG does not evident of ischemic SC. Therefore urgent cardiac catheterization is not needed at this time. When patient is improved from acute CVA then further workup and history will be repeated Recommendations include to continue aspirin, statin, and beta-vero if blood pressure is permissible -Patient currently does not require heparin drip due to CVA and blood found during bronchoscopy -No further troponin trend is recommended #New onset A-fib with RVR -On 04/11 patient was found to be in A-fib with RVR with heart rate up to 170, blood pressure at the time was 110/70 -Patient was started on amiodarone drip along with bolus amiodarone was given as well as metoprolol 2.5 Mg IV x 1 -[id number] score is 6, however with hold anticoagulation at this time due to findings of bronchoscopy and acute CVA. -Patient is to be transitioned to metoprolol succinate 50 XL GT after the current amnio drip finishes it can be turned off -Keep potassium above 4 and magnesium above 2 at all times #leukocytosis #unknown source -Pt spiked a fever and leukocytosis is uptrending. 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 - recommended outpatient workup #primary hypertension #Hyperlipidemia -Due to stroke patient was allowed permissive hypertension with the parameters in place labetalol 5 mg is as needed for systolic blood pressure above 180 -current BP is stable 133/69 -For hyperlipidemia patient is on atorvastatin 80mg HS #type 2 Diabetes mellitus Hemoglobin A1c is 5.9 -Patient is home insulin is glargine 60 units -Patient is started on insulin sliding scale and hypoglycemia protocol is in place -Patient's blood sugars were not being controlled with glargine 60 units therefore insulin drip was started today Assessment and plan discussed with my attending physician Dr. Huber Lomax ([id number])- Internal medicine resident Attending Provider Attestation/Addendum I have personally seen and examined the patient separately on the above date of service and discussed the plan of care with the resident. I reviewed the resident Dr. Maico Lomax consultation progress note and agree with the resident findings and plan in the note above and have also edited the documentation to reflect my findings and plan. WBC continued to worsen today at 30.1 with a left shift, fibrinogen is greater than 860. ABG reviewed and pH was 7.37 pCO2 of 31 and pO2 of 75 mmHg. Rest of the labs reviewed and sodium 132 and potassium 4.6. BUN 102 today and creatinine 7.9 lactate worsening today at 7.6 along with elevated AST. C reactive protein yesterday was 25.6 Patient's overall clinical picture has been deteriorating and there has been minimal improvement in the patient neurological status. Primary team did discuss the CODE STATUS with the family. Primary team did start the patient on antibiotics for sepsis of unknown etiology Telemetry reviewed and patient is no longer in atrial fibrillation and is in intermittent sinus rhythm as well as sinus tachycardia. Amiodarone drip was completed as per protocol. Recommended increase metoprolol XL to 50 mg once daily for now for rate control as the blood pressure is acceptable otherwise patient can be started on oral amiodarone 200 mg twice daily. Patient will need anticoagulation for the atrial fibrillation and recommend to discuss with neurology regarding starting anticoagulation for the patient if it is not contraindicated with her recent acute stroke . Presently patient is on aspirin and Plavix for the recent acute stroke Keep potassium greater than 4 and magnesium greater than 2.0 at all times. Patient still continues to be intubated and sedated during my exam without much change in her neurological status Neurology will follow the patient in the CSF analysis was not conclusive. Patient did have some myoclonic jerks which are better and recommended high-dose steroids with IVIG. Patient condition continues to be critical and overall prognosis appears to be poor which was discussed with the family Chad Ngo M.D. Interventional Cardiology.
--- NOTE | 2024-04-15 10:13 | PC.NURSE ---
BP low, Dr Barrett wanted albumin instead of Levophed. Albumin 25% IVP given.
--- NOTE | 2024-04-15 10:27 | ESPR_ITS ---
<Statement entered by Mallory Barrett MD - 04/16/24 08:21> TOTAL CC TIME: 65 MIN I saw and evaluated the patient. I reviewed the resident?s note and agree with findings and plan as documented in the resident?s note. Upon my evaluation, this patient had a high probability of imminent or life- threatening deterioration due to septic shock, pneumonia, renal failure, acute hypoxic respiratory failure which required my direct attention, intervention, and personal management. This time is exclusive of time spent on procedures, which are documented separately if performed. High tidal volume respirations identified on rounds. Concerned for worsening metabolic acidosis. Patient received aggressive hemodialysis and BUN finally did improve however despite that serum bicarbonate level has dropped. Fever also noted. Patient remains encephalopathic despite being off sedation and is unable to provide any clues as to the source of distress. Lower extremity appears more mottled but feet remain warm. Nurse was able to live dopplerable pulses on the feet. We broaden antibiotics with vancomycin. Central line hemodialysis holiday will be planned, although risk of tunneled line infection since so soon after placement is small. previously discussed with Dr. Sheridan and 1 more round of hemodialysis was planned. Bedside IVC exam identifies normal-sized IVC. Decision for collins CT including chest and CTA abdomen pelvis was made. Patient has history of peripheral vascular disease ischemic bowel was on the differential given the elevated lactic acidosis. Overnight team to follow-up on CT results. ICU team met with the patient's sister and daughter at bedside. We provided them an update and informed them that Mrs. Sin Diop's condition was getting worse. They were informed that further workup with collins CT have been ordered. I also encouraged them to discuss goals of care with the rest of the family given her worsening condition. 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 Upon arrival to the ED, stroke alert was called. CT head negative, however patient was outside of TNK window. MRI brain recommended but given that patient continues to have altered mental status and cannot follow commands in addition to requiring HFNC, will not be able to obtain. Echo obtained on 04/05, negative bubble study and EF 55 to 60%. Carotid Doppler was poor study due to lack of patient cooperation. Labs obtained in ED showed creatinine of 5.4, which is significantly elevated from baseline of 1.0. Thus, TDC was placed and patient has since received 2 dialysis sessions (04/06, 04/07), however has not had any improvement in her mental status. Throughout hospital course, patient has had 3 rapid responses. On 04/06 rapid response for fever of 103 ?F, 04/07 for episode of twitching on right side of face, and again on 04/07 for episode of apnea for few seconds after dose of lorazepam. ICU was consulted given that patient has had increased oxygen requirements and altered mental status and evaluated if patient will require closer monitoring to protect her airways. 04/08: No acute overnight events reported. She was noted to have increased oxygen requirements after coming back from repeat CT head. She was originally on HFNC at 30 L/min, 50% FiO2 and is currently on 30 L/min and now 80% FiO2. Repeat CT head showed no gross hemorrhage or mass effect but patient motion is significantly degraded image quality. Patient noted to have less spontaneous movements compared to yesterday and contacted MRI regarding possibility of obtaining imaging. However, they will not be able to accommodate patients on high flow nor on BiPAP. Underwent third session of hemodialysis today, with removal of 3 L of fluid. Blood pressure dropped to 86/48 and was given Levophed. 04/09: No acute overnight events reported. Only had 30 cc of urine output the entire shift, 2.5 cc/h. Did not require Levophed or Precedex. Underwent lumbar puncture and evening of 04/08, noted to have opening pressure at 33 cm H2O and elevated protein and glucose. Also had an EEG that showed diffuse slowing, suggestive of diffuse encephalopathy of metabolic versus degenerative versus vascular origin. No epileptic waveforms noted but given that patient's right sided facial twitching and spontaneous movements have improved, will continue with valproate per recs. Neurology also recommended starting 1 g Solu-Medrol daily. Oxygen needs decreased from HFNC to oxy mask, and again attempted to obtain MRI but were unable due to oxy mask and body habitus. NG tube placed to start feeds given the patient has been n.p.o. since admission and will increase glargine from 10 to 15 units to accommodate. 04/10: No acute overnight events reported. At 9:30 AM, rapid response called due to O2 saturation of 86% on 15 L nonrebreather. Suspect possible aspiration event and RT subsequently suctioned with increase in O2 saturation to high 80s on 15 L. Upon assessment, GCS of 3 and determined that patient unable to protect her airways and was upgraded to ICU for RSI. At around 10:30 AM, patient underwent successful RSI. A.M. labs showed glucose of 596 with anion gap of 17 and beta hydroxybutyrate of 2.1, suspect due to recently starting high-dose steroids. Glargine was originally increased to accommodate from 10 to 15 units, but patient will now be started on 20 units glargine daily. ABG obtained prior to intubation showed pH 7.1, pCO2 75, and pO2 71. Repeat after intubation showed pH 7.12, pCO2 73, and pO2 75. Subsequent ABG ordered and will follow-up. Given that patient is now intubated, revisited MRI and we will attempt to obtain again in the afternoon. Will also attempt hemodialysis later today. 04/11: No acute overnight events reported. MRI was obtained on 04/10 that showed acute infarct of anterior right brainstem (pontine level) and acute infarct of right basal ganglia. Also underwent dialysis yesterday but was only able to tolerate 2 hours and 15 minutes with removal of 700 mL due to hypotension (78/41) while on Levophed. Underwent bronchoscopy which showed few areas of submucosal bleeding noted as well as nilson blood throughout most of the airway, however serial lavages returned clear fluid. Cheetah in evening showed baseline of HR 89, SVI 47, CI 4.2 and HR 86, SVI 43, CI 3.8 after PLR indicating that patient is not fluid responsive. Noted to become agitated in evening (opening eyes and fighting vent) with BP spike to 192/105. Precedex was started and was on for 2 hours and BP resolved without any other intervention. UOP 15 cc entire shift. Spoke to nephrology today and no HD, will reassess tomorrow. Blood sugar better controlled, in 300s. Will increase glargine from 20 to 40 units starting today. Carotid Doppler obtained showing 30 to 50% stenosis of right ICA and 10 to 20% stenosis of left ICA. 04/12: Noted to have new onset A-fib with RVR at 70 p.m. on 04/11 with heart rate in 160s to 170s. Given metoprolol to tartrate 2.5 mg IV x 1, amiodarone bolus, and then amiodarone drip and patient converted to sinus tachycardia. In AM upon evaluation, patient remains in sinus tachycardia. Otherwise, no other overnight events. Did not require pressors or Precedex overnight. UOP noted to be 50 cc per entire shift. Plans to undergo fifth session of hemodialysis tomorrow. Blood sugars remain elevated in low to mid 300s after changing glargine from 20 to 40 units and continues to receive 6 units SSI every 4 hours. Will increase glargine to 50 units daily and continue SSI. Ventilator settings of VT 350, RR 36, PEEP 14, FiO2 45% were changed to RR of 24, PEEP of 10, and FiO2 of 35% given ABG that showed pH 7.41, pCO2 39, and pO2 147. Repeat ABG ordered to assess changes in ventilator settings. Remained afebrile overnight but WBC noted to increase from 9.9 to 15.0. Thus, repeat CXR obtained and showed improvement in bilateral infiltrates paired to previous CXR in 04/10. 04/14: No acute overnight events noted. HR remains in sinus tachycardia but has not gone into atrial fibrillation. Currently on metoprolol succinate 50 mg GT daily. No on pressors or sedation. Started on insulin drip as blood sugars remain in 350s with 60 units glargine daily with SSI. UOP also continues to be low with 5-10 cc entire shift. Spoke to nephrology and will attempt hemodialysis tomorrow while increasing rate of filtration and size of filter. Today will be second day of IVIG. Ventilator settings remain the same at VT 350, RR 36, PEEP 14, and FiO2 45%. Repeat CXR showed improvement in infiltrates bilaterally. 04/15: No acute overnight events noted. Continues to not require pressors or sedation. Blood sugars continue to improve with insulin drip, now ranging in 160s-170s. Will give 50 units glargine today and after 2 hours will stop insulin drip. Given recurrent fever spikes (100.4 ?F on 04/15, 100.5 ?F on 04/14) will start vancomycin for possible line associated infection. Aim to decrease BUN below 60 via dialysis and 1 achieved plan to remove TDC for dialysis holiday. At that time we will obtain blood cultures and place temporary line on same day to further assess recurrent fever spikes. On third day of IVIG, GCS continues to remain approximately 7T as she has some spontaneous eye movements, intubated, and withdraws from pain. Underwent dialysis today with removal of 1.8 L. However, blood pressure decreased and was put on levophed (0.05 mcg/kg) and BP of 91/64. Repeat CMP after dialysis showed improved BUN from 102 to 47 and Cr from 8.6 to 4.5. Also noted drop in HCO3 from 23.2 to 17.3 and increase in AG from 15 to 19. Will get repeat ABG, lactate, and fibronogen. On exam, noted to have mottling which is new compared to yesterday and will get collins CT with CTA with runoff. Exam Vital Signs Temp Pulse Resp BP Pulse Ox O2 Del Method O2 Flow Rate 100.4 F 112 H 30 H 97/64 93 L Mechanical Ventilation 13 04/15/24 08:07 04/15/24 10:15 04/15/24 08:07 04/15/24 10:15 04/15/24 10:05 04/14/24 08:00 04/12/24 06:00 FiO2 40 04/15/24 08:07 Narrative Exam General: Mechanically ventilated, not on sedation, not on pressors, not responding to questions/following commands HEENT: NC/AT, mucous membranes moist, bilateral sclera anicteric Cardiovascular: regular rate and rhythm, S1/S2 present, no murmurs appreciated Pulmonary: clear to auscultation bilaterally, no rales/rhonchi/wheezes Abdominal: Obese, soft, no guarding Musculoskeletal: no peripheral edema, dorsalis pedis pulses 2+ Skin: PIV, TDC, acanthosis nigricans in neck, mottling on plantar surface of lower extremities bilaterally Neuro: ? E (2), V (T), M (4) -> GCS 7T ? Cranial reflex, pupillary light reflex, and gag reflex tact Objective Labs 04/15/24 07:20 04/15/24 12:15 Labs: Laboratory Results - last 24 hr 04/08/24 04/13/24 04/14/24 18:00 18:00 12:22 WBC RBC Hgb Hct MCV MCH MCHC RDW Std Deviation Plt Count Neut % (Auto) Lymph % (Auto) Band[place] % (Auto) Eos % (Auto) Baso % (Auto) Neut # (Auto) Lymph # (Auto) Band[place] # (Auto) Eos # (Auto) Baso # (Auto) Immature Gran # (Auto) Absolute Nucleated RBC Immature Gran % Nucleated RBC % Sodium 134 L Potassium 4.3 Chloride 96 L Carbon Dioxide 22.4 Anion Gap 16 BUN 87 H Creatinine 7.1 H* D Estim Creat Clear Calc 8.0 L eGFR 6 L* BUN/Creatinine Ratio 12 Glucose 300 H Calculated Osmolality 305 H Calcium 10.0 Corrected Calcium 10.0 Phosphorus Magnesium Total Bilirubin 0.2 L AST 12 ALT < 7 L Alkaline Phosphatase 85 Total Protein 7.8 Albumin 4.0 Globulin 3.8 H Albumin/Globulin Ratio 1.1 L CSF Albumin 25.6 CSF IgG (MS) 4.9 IgG, Serum (MS) 1010 Serum Albumin 2.5 L CSF/Serum IgG Index 0.47 CSF/Serum IgG Synthesis -2.2 Misc Test Result Cancelled 04/14/24 04/14/24 04/15/24 15:40 21:16 00:28 WBC RBC Hgb Hct MCV MCH MCHC RDW Std Deviation Plt Count Neut % (Auto) Lymph % (Auto) [place] % (Auto) Eos % (Auto) Baso % (Auto) Neut # (Auto) Lymph # (Auto) [place] # (Auto) Eos # (Auto) Baso # (Auto) Immature Gran # (Auto) Absolute Nucleated RBC Immature Gran % Nucleated RBC % Sodium 132 L 137 137 Potassium 4.5 4.4 4.7 Chloride 97 L 99 99 Carbon Dioxide 21.2 22.6 20.6 Anion Gap 14 15 17 H BUN 85 H 89 H 87 H Creatinine 7.4 H* 7.7 H* 7.9 H* Estim Creat Clear Calc 7.7 L 7.4 L 7.2 L eGFR 6 L* 5 L* 5 L* BUN/Creatinine Ratio 11 L 12 11 L Glucose 325 H 157 H D 157 H Calculated Osmolality 303 H 304 H 303 H Calcium 10.1 10.4 10.1 Corrected Calcium 10.1 10.4 H 10.2 H Phosphorus Magnesium Total Bilirubin 0.2 L 0.2 L 0.2 L AST 16 32 41 H ALT 7 L 11 12 Alkaline Phosphatase 83 82 77 Total Protein 7.8 8.7 H 8.2 Albumin 4.0 4.1 3.9 Globulin 3.8 H 4.6 H 4.3 H Albumin/Globulin Ratio 1.1 L 0.9 L 0.9 L CSF Albumin CSF IgG (MS) IgG, Serum (MS) Serum Albumin CSF/Serum IgG Index CSF/Serum IgG Synthesis Misc Test Result 04/15/24 04/15/24 05:09 07:20 WBC 30.1 H D RBC 2.83 L Hgb 7.9 L Hct 24.7 L MCV 87 MCH 27.9 MCHC 32.0 RDW Std Deviation 50.4 H Plt Count 362 D Neut % (Auto) 66 Lymph % (Auto) 6 L [place] % (Auto) 13 H Eos % (Auto) 0 Baso % (Auto) 1 Neut # (Auto) 19.8 H Lymph # (Auto) 1.7 [place] # (Auto) 3.9 H Eos # (Auto) 0.0 Baso # (Auto) 0.2 Immature Gran # (Auto) 4.57 H Absolute Nucleated RBC 0.60 H Immature Gran % 15 H Nucleated RBC % 2 H Sodium 134 L Potassium 4.7 Chloride 96 L Carbon Dioxide 23.2 Anion Gap 15 BUN 102 H* Creatinine 8.6 H* D Estim Creat Clear Calc 6.6 L eGFR 5 L* BUN/Creatinine Ratio 12 Glucose 172 H Calculated Osmolality 304 H Calcium 9.9 Corrected Calcium 9.9 Phosphorus 5.3 H Magnesium 2.7 H Total Bilirubin < 0.2 L AST 49 H ALT 11 Alkaline Phosphatase 81 Total Protein 8.2 Albumin 4.0 Globulin 4.2 H Albumin/Globulin Ratio 1.0 L CSF Albumin CSF IgG (MS) IgG, Serum (MS) Serum Albumin CSF/Serum IgG Index CSF/Serum IgG Synthesis Misc Test Result ABG Interpretation ABG results: 04/05/24 04/06/24 04/06/24 13:11 05:17 13:37 ABG pH 7.23 L 7.23 L ABG pCO2 39 31 L ABG pO2 54 L* 70 L ABG HCO3 16 L 13 L ABG O2 Saturation 86 L 92 ABG Base Excess -11 L -13 L VBG pH 7.23 L VBG pCO2 34 L VBG pO2 35 VBG Base Excess -13 L 04/06/24 04/07/24 04/08/24 16:56 12:14 14:46 ABG pH 7.42 D 7.39 7.36 ABG pCO2 35 40 44 ABG pO2 69 L 79 L 40 L* D ABG HCO3 23 24 25 ABG O2 Saturation 94 94 71 L ABG Base Excess -2 -1 -1 VBG pH VBG pCO2 VBG pO2 VBG Base Excess 04/08/24 04/08/24 04/10/24 16:20 17:19 09:05 ABG pH 7.34 L 7.35 Cancelled ABG pCO2 46 45 Cancelled ABG pO2 36 L* 113 H D Cancelled ABG HCO3 25 25 Cancelled ABG O2 Saturation 63 L 97 Cancelled ABG Base Excess -1 -1 Cancelled VBG pH VBG pCO2 VBG pO2 VBG Base Excess 04/10/24 04/10/24 04/10/24 09:41 11:45 14:26 ABG pH 7.10 L* D 7.12 L* 7.20 L ABG pCO2 75 H* D 73 H* 58 H D ABG pO2 71 L D 75 L 78 L ABG HCO3 23 24 23 ABG O2 Saturation 89 L 90 L 93 ABG Base Excess -7 L -6 L -5 L VBG pH VBG pCO2 VBG pO2 VBG Base Excess 04/10/24 04/11/24 04/11/24 15:21 05:29 17:04 ABG pH 7.25 L 7.40 D 7.39 ABG pCO2 52 H 40 D 40 ABG pO2 90 93 74 L ABG HCO3 23 25 24 ABG O2 Saturation 95 98 93 ABG Base Excess -5 L 0 -1 VBG pH VBG pCO2 VBG pO2 VBG Base Excess 04/12/24 04/12/24 05:23 11:35 ABG pH 7.41 7.40 ABG pCO2 39 40 ABG pO2 147 H D 91 D ABG HCO3 25 25 ABG O2 Saturation 98 96 ABG Base Excess 0 0 VBG pH VBG pCO2 VBG pO2 VBG Base Excess Quality Measures Quality Measures VTE prophylaxis Advance care planning discussed with:: child Assessment & Plan Assessment Current Active Medications: Generic Name Dose Route Start Last Admin Trade Name Freq PRN Reason Stop Dose Admin Acetaminophen 1,000 mg 04/13/24 11:30 04/14/24 12:07 Acetaminophen 500 Mg Tablet PO 04/18/24 11:31 1,000 mg QDAY@1130 DELMY Administration Acetaminophen 650 mg 04/14/24 20:50 Acetaminophen 325 Mg Tablet PO 05/05/24 23:05 Q12HR PRN Fever >100, or pain 1-3 Albuterol/Ipratropium 3 ml 04/10/24 11:45 04/15/24 06:56 Albuterol/Ipratropium (Duoneb) Rt Princess 3 Ml Nebu INH 05/10/24 11:44 3 ml Q4HRRT DELMY Administration Aspirin 325 mg 04/12/24 10:15 04/15/24 09:36 Aspirin 325 Mg Tablet NG 05/12/24 10:14 325 mg QDAY DELMY Administration Atorvastatin Calcium 80 mg 04/11/24 21:00 04/14/24 21:42 Atorvastatin Calcium 20 Mg Tablet NG 05/11/24 20:59 80 mg HS DELMY Administration Calcium Carbonate 600 mg 04/06/24 14:45 04/15/24 09:35 Calcium Carbonate 600 Mg Tablet PO 05/06/24 14:44 600 mg BID DELMY Administration Clopidogrel Bisulfate 75 mg 04/12/24 09:00 04/15/24 09:36 Clopidogrel Bisulfate 75 Mg Tablet NG 05/12/24 08:59 75 mg QDAY DELMY Administration Dextrose 25 ml 04/07/24 10:52 Dextrose 50%-Water Inj 50 Ml Syringe IV 05/07/24 10:51 Q15MIN PRN BG 50-70 responsive npo pt Dextrose 50 ml 04/07/24 10:52 Dextrose 50%-Water Inj 50 Ml Syringe IV 05/07/24 10:51 Q15MIN PRN BG <50 OR BG <70 & pt unresponsive Diphenhydramine HCl 25 mg 04/13/24 11:30 04/14/24 12:07 Diphenhydramine Elix 25 Mg/10 Ml Udc NG 04/18/24 11:31 25 mg QDAY@1130 DELMY Administration Glucagon 1 mg 04/07/24 10:52 Glucagon Inj 1 Mg Vial IM Q15MIN PRN BG <70, and no IV access Heparin Sodium (Porcine) 3,300 unit 04/06/24 15:03 04/13/24 10:53 Heparin Sod Inj 1000 Unit/Ml Vial 10 Ml INDWELLCAT 04/20/24 15:02 3,300 unit PRN PRN Administration DIALYSIS Heparin Sodium (Porcine) 5,000 unit 04/09/24 08:00 04/15/24 05:50 Heparin Sod Inj 5000 Unit/Ml Vial SC 04/23/24 07:59 5,000 unit Q8HR DELMY Administration Dexmedetomidine/Sodium Chloride 200 mcg in 50 mls @ 5.31 mls/hr 04/08/24 09:17 04/14/24 13:38 Precedex Ivpb IV 05/08/24 09:16 0 mcg/kg/hr .Q9H25M PRN 0 mls/hr Per PROTOCOL Titration Protocol 0.2 MCG/KG/HR Norepinephrine/Dextrose 8 mg in 250 mls @ 9.956 mls/hr 04/08/24 09:53 04/14/24 08:46 Levophed In D5w 8mg/250ml IV 05/08/24 09:52 0.05 mcg/kg/min .Q24H PRN 9.956 mls/hr PER PROTOCOL Titration Protocol 0.05 MCG/KG/MIN Methylprednisolone Sodium 104 mls @ 104 mls/hr 04/09/24 12:00 04/10/24 13:27 Succinate 250 mg/ Sodium IV 04/16/24 11:59 Not Given Chloride Q6HR DELMY Propofol 1,000 mg in 100 mls @ 2.955 mls/hr 04/10/24 09:50 Diprivan Ivpb IV 05/10/24 09:49 .Q24H PRN PER PROTOCOL Protocol 5 MCG/KG/MIN Valproic Acid 750 mg/ Sodium 57.5 mls @ 55 mls/hr 04/11/24 14:00 04/15/24 05:50 Chloride IV 05/08/24 21:59 55 mls/hr Q8HR DELMY Administration Phenylephrine HCl 40 mg/ 100 mls @ 1.422 mls/hr 04/11/24 20:11 Sodium Chloride IV 05/11/24 20:10 .Q24H PRN Per Cardiogenic Protocol Protocol 0.1 MCG/KG/MIN Immune Globulin 20 gm/ Immune 250 mls @ 41.667 mls/hr 04/13/24 12:00 04/14/24 14:22 Globulin 5 gm/ IV IV 04/18/24 17:59 41.667 mls/hr Miscellaneous Supplies QDAY@1200 DELMY Administration Insulin Human Regular 100 unit in 100 mls @ 9.52 mls/hr 04/14/24 11:04 04/15/24 10:02 Myxredlin IV 05/14/24 11:03 0.05 unit/kg/hr .[id number] PRN 4.76 mls/hr PER PROTOCOL Titration Protocol 0.1 UNIT/KG/HR Vancomycin/Sodium Chloride 200 mls @ 120 mls/hr 04/15/24 10:00 Vancomycin/Ns 1 Gm Ivpb IV 04/15/24 11:39 X1 ONE Albumin Human 25 gm in 100 mls @ 100 mls/hr 04/15/24 10:05 Albuminar-25 Ivpb IV PRN PRN DIALYSIS Labetalol HCl 10 mg 04/05/24 23:55 Labetalol Inj 5 Mg/Ml Vial 20 Ml IVP 05/05/24 23:54 X1 PRN BP >220/110 Lidocaine HCl 9 ml 04/06/24 11:00 Lidocaine Inj Pf 1% 5 Ml Vial INFL X1 PRN LOCAL ANESTHESIA Protocol Metoprolol Succinate 50 mg 04/12/24 19:00 04/15/24 10:04 Metoprolol Succinate Xl 25 Mg Tabcr GT 05/12/24 18:59 Not Given QDAY DELMY Ondansetron HCl 4 mg 04/05/24 23:06 Ondansetron Inj 2 Mg/Ml Inj 2 Ml IV 05/05/24 23:05 Q6H PRN NAUSEA OR VOMITING Protocol Pantoprazole Sodium 40 mg 04/06/24 09:00 04/15/24 09:35 Pantoprazole Inj 40 Mg Vial IVP 05/06/24 08:59 40 mg QDAY DELMY Administration Pharmacy Consult 1 each 04/09/24 08:54 Pharmacy Renal Dose Adjustment 1 Ea XX 05/08/24 08:59 QDAY PRN protocol Pharmacy Consult 1 each 04/15/24 10:00 Vancomycin Pharmacy To Dose 1 Each Each IV 05/15/24 09:59 QDAY PRN CONSULT Plan Sofiya Vogt is a 64-year-old female with a past medical history of 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 She was upgraded to ICU on 04/08 and then downgraded on 04/10. However, rapid response called on 04/10 for desaturation (see event note for details) and upgraded on 04/10 for airway protection requiring RSI. 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 CT head (04/05, 04/07): negative x2. MRI/MRA brain (04/10, 04/13): 12 mm acute infarct anterior R christine, 14 mm acute infarct R basal ganglia. EEG (04/08): diffuse slowing without epileptic waveforms. Lumbar puncture (04/08): glucose 148 H, protein 54 H, WBC 4 wnl, culture negative Lumbar puncture (04/13): glucose 192 H, protein 72 H, WBC 4, RBC 34, culture pending Carotid Duplex showed 30-50% stenosis of R ICA ? Neurology consulted, appreciate recommendations ? IVIG at 0.4 g/kg, based on ideal body weight (04/13-) ? Valproate IV every 8 hours ? Follow-up ZAINAB, ANCA, C3, C4, repeat LP results and send outs #Ischemic stroke, right brainstem (pontine level), prior basal ganglia #History of stroke with residual left-sided deficits ? Aspirin 325 mg via NG daily ? Clopidogrel 75 mg via NG daily ? Atorvastatin 80 mg via NG daily Cardiovascular #ACS, NSTEMI #Elevated troponins, downtrended Elevated on admission, but decreased from 1.3 to 1.2 and were no longer trended. ST depressions seen on telemetry on 04/10 and repeat troponin of 0.64 that increased to 0.98 and plateaued at 1.8. Repeat EKG showed ST depressions in V2- V6 (most prominent in V4-6). ? Cardiology consulted, recommended aspirin, statin, and beta-vero if neurology is in agreement; no heparin drip and no LHC indicated at this time given patient's clinical status ? Troponins plateaued at 1.8 #A-fib with RVR, resolved 04/11, went into a-fib with RVR at 160-170 bpm. Given metoprolol tartrate 2.5 mg IV x 1, amiodarone bolus, and then amiodarone drip. ? Metoprolol succinate 50 mg GT daily Pulmonary #Acute hypoxic respiratory failure, secondary to ? aspiration pneumonitis After RR on 04/10, ABG prior to RSI: pH 7.1, pCO2 75, pO2 71 -> ABG after RSI + mechanical ventilation: pH 7.2, pCO2 58, and pO2 78. 04/11 AM ABG: pH 7.4, pCO2 40, pO2 93, which are much improved compared to prior. 04/12 AM ABG: pH 7.41, pCO2 39, pO2 147 -> ABG after ventilation changes: pH 7.4, pCO2 40, pO2 91. During intubation, foreign material (? tube feeds) were seen and could be possible etiology of desaturation. ? Mechanically ventilated: VT 350, RR 16, PEEP 10, FiO2 40% #Bilateral lung infiltrates, improved CT chest on admission showed bilateral pneumonia. CXR on 04/07 showed bilateral infiltrates that improved on 04/09. CXR on 04/10 after RR showed interval worsening of infiltrates compared to 04/09, with ABG at that time showing pH 7.1, pCO2 75, pO2 71. At time of rapid, patient on NG tube feedings and during intubation dark-colored material seen above trachea. Since already received 7 days antibiotics, current antibiotics will be for encephalitis versus meningitis. Sputum culture 04/10: mixed quentin Bronchial lavage culture 04/10: Staph epidermidis Blood culture 04/06: no growth COVID, RSV, flu Cocci IgG/IgM, and MRSA nares negative ? Follow-up repeat blood culture 04/10 Gastrointestinal #NG tube placed, 04/09 KUB showed Dobhoff NG tube in distal stomach/satisfactory position Dobhoff removed during MRI on 04/09 and replaced with another NG tube ? Delivery Driver/Supervisor referral to begin NG tube feedings ? Nepro at 10 mL/h via NG tube by pump. Advance 10 mL every 8 hours to goal rate of 40 mL/h for 24 hours. ? Hold water flushes given decreasing Na #GI prophylaxis ? Pantoprazole 40 mg IV daily Renal #Anion gap metabolic acidosis, secondary to lactic acid CMP obtained after dialysis and showed decrease in HCO3 from 23 to 17 and increase in anion gap from 15 to 18. Lactate obtained and elevated at 7.6. Suspected to be due to hypoperfusion as 1.8 L removed and levophed started simultaneously secondary to hypotension but will order collins CT scan to investigate possible ischemic vs infectious processes. ? Follow-up collins CT scan #Acute renal failure Status post placement of TDC. Hemodialysis sessions 04/06, 04/07, 04/08, 04/10, 04/13. ? HD per nephrology recommendations ? Renally dose medications ? Avoid nephrotoxic agents #History of staghorn calculi #Nephrolithiasis, 10 mm and 14 mm lower pole left renal calculi without hydronephrosis seen on CT A/P ? Urology consulted, not surgical candidate at this time #Hypercalcemia, resolved #Hyperphosphatemia ? Continue hemodialysis Endocine #Type 2 diabetes mellitus A1c 7.6%. Blood sugars increased to 595 after receiving 1 g steroids on 04/09. Glargine originally at 10 units and eventually increased to 60 units. ? Insulin drip started 04/14 and will be DC'd 2 hours after 50 units glargine ? 50 units glargine ? Every hour bedside glucose checks with SSI q4hr Heme #Chronic, normocytic anemia Slowly downtrending but stable. Has not had bloody bowel movements or gross hematuria. ? Continue to monitor Infectious disease #Sepsis, with unknown source #? Catheter-associated infection 3/4 SIRS, without source: CXR shows improvement in b/l infiltrates and had full course of abx for PNA and meningitis r/o from LP results. WBC 16.2 (17.8, 15.0, 9.9), 100.6 F on 04/12. CRP 25.6, ESR 68. Plan is to undergo dialysis until BUN stable below 60. Afterward, plan to remove TDC for hemodialysis holiday for approximately two days. At that time, obtain blood culture and place temporary line on same day. ? Vancomycin started on 04/15 ? Infectious disease consulted ? Follow-up beta-D glucan Urine culture 04/05, 04/06: No growth Sputum culture 04/06, 04/10: Mixed quentin Bronchial lavage 04/10: Staph epidermidis CSF culture 04/08: GPC, no growth CSF culture 04/13: NGTD Blood culture 04/05: No growth Blood culture 04/10: NGTD Ceftriaxone and azithromycin 04/05-04/06 Cefepime 04/06-04/11 Doxycycline 04/06-04/09 Vancomycin 04/10-04/11 Ampicillin 04/10 Meropenem 04/13-04/15 Vancomycin 04/15- Hospital management: Disposition: intubated and mechanically ventilated Fluids: none Pressors: Levophed PRN Sedatives: Precedex PRN Diet: NPO, NG tube with suctioning off DVT prophylaxis: heparin SC q8hr GI prophylaxis: pantoprazole 40 mg IV Lines: 2 peripheral IV, TDC CODE STATUS: full code ----- Plan discussed with attending physician Dr. Nena Andino MD PGY-1 Internal Medicine
--- NOTE | 2024-04-15 10:47 | PC.SS ---
[facility] informed by bedside need to contact lab to discuss order for CSF panel. [facility] contacted lab staff, Dash; to discuss order for panel. [facility] informed that lab was inquiring if CSF panel could be completed on an outpatient basis. [facility] informed lab staff that [facility] would update ICU resident on whether panel could be completed on outpatient basis. [facility] updated ICU resident, Dr. Agosto; on the matter. ICU resident to contact lab staff, Dash; to discuss panel order. [facility] updated bedside nurse.
--- NOTE | 2024-04-15 10:48 | ESPR_ITS ---
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 Stroke alert was called, and underwent stroke workup. tPA not given due to out of window. On further interviewing, she reported that she has been taking some penicillin that was brought from [place] of long time ago. She also took Motrin x 2 in last 2 days. She admitted having fever, denied any chills, lightheadedness, chest pain, and any flank pain. Her vitals are fairly stable, hemoglobin 9.1, ABG significant for pH 7.23, pCO2 39, pO2 70. Chemistry panel revealed sodium 133, mild hyperkalemia, bicarb 15.1. BUN 66, creatinine 5.9, EGFR 7. Baseline creatinine is 1.6 with EGFR 56. Triglyceride 493, cholesterol 191, HDL 30 with normal TSH and T4. Hepatitis panel negative. CT head negative for midline shift, acute hemorrhage or mass effect. Pending carotid US, and brain MRI. CXR with mild congestion and superimposed pneumonia. CT abdomen pelvis revealed significant hepatomegaly, moderate bilateral renal parenchymal scarring, 10 mm and 14 mm renal calculi on the left, cystitis pattern, no hydronephrosis or bowel obstruction. PMH: As mentioned above Social history: Denies alcohol, smoking or any illicit drug use Allergies: No known allergies 04/07/2024: The patient was interviewed and examined at the bedside. She was saturating 93% on BiPAP, with FiO2 40% and O2 flow 30 L. Chemistry panel revealed BUN 52, creatinine 4.9, EGFR 9, blood sugar 279, calcium 8.1 and phosphorus 6.0. The patient will get second session of hemodialysis this morning. Urine random creatinine 113, protein 598, sodium 42, potassium 33, chloride 27, urea nitrogen 302. Renal ultrasound significant for moderate bilateral renal parenchymal eschar formation, bilateral renal cortical thinning with no hydronephrosis. 04/08/2024: The patient was examined at the bedside this morning. She reported having difficulty breathing. She was upgraded to ICU. She was saturating 92% on BiPAP. Other vitals were fairly stable. Physical examination was significant for distant breath sounds, and bibasilar crackles. Labs were significant for hemoglobin trending down to 8.1 likely dilutional, BUN 41 and creatinine 4.4, phosphorus 5.8. Ordered ZAINAB screen, ANCA, antiproteinase 3, antimyeloperoxidase and complement level. 04/09/2024: The patient was at the bedside this morning again. She was difficult to arouse and was reacting to painful stimulus. Her vitals were stable saturating 97% on high flow NC with FiO2 80%. The patient underwent hemodialysis yesterday with removal of 3 L fluid and was hypotensive after that. BUN And creatinine improving to 26 and 3.7 respectively. Phosphorus 5.6 less than 10. We will hold off today and proceed with morning. 04/10/24: The patient was agitated overnight and was given 2 mg of IV lorazepam. This morning, she was responding only to painful stimuli, lying on her bed. Her fingerstick blood sugar this morning was 483, hemoglobin 8.9, Chemistry panel significant for potassium 5.0, BUN 53, creatinine 5.6, and blood sugar 596. The patient is planned to undergo hemodialysis this morning. 04/11/2024: The patient was examined at the ICU bedside this morning. She was intubated. She was, saturating 100% on mechanical ventilation, on FiO2 45%, with heart rate 112, and respiratory rate in 30s. CBC was significant for WBC 9.9, hemoglobin 8.1 ABG WNL, sodium 139, potassium 3.4, anion gap 18, BUN 51 and creatinine 4.7 with blood glucose 350, troponin trended up to 1.854. We will hold off on dialysis for today, and proceed with dialysis tomorrow morning. 04/13/2024: The patient was examined at the ICU bedside this morning again. She was intubated, was saturating 96% on mechanical ventilation with FiO2 35%. She was responsive only to deep stimuli with mild eye-opening. CBC revealed white count 17.8, hemoglobin 8.4, chemistry panel with anion gap 18, BUN 101, creatinine 7.0, EGFR 6, blood sugar 346, magnesium 3.1. Patient was tolerating hemodialysis well this morning. 04/14/2024: The patient was examined in the ICU bed this morning. She was intubated, and mechanically ventilated saturating 92% on 35% FiO2. RR 30, blood pressure 109/63. CBC revealed WBC 16.2, 8.8, ESR 68. Chemistry panel revealed sodium 133, chloride 93, 3.9, anion gap 17, BUN 79 and creatinine 6.1 and blood sugar 316. CRP 25.6. CSF fluid revealed glucose 192 and protein 72 both elevated. We will off on dialysis today, and proceed with dialysis tomorrow morning. 04/15/2024: The patient was examined in the ICU unit this morning again. She was undergoing hemodialysis. The target ultrafiltration goal would be only 1 to 2 L as the patient appeared euvolemic. However, we will increase the time and size of hemodialysis filter. White count trended up to 30.1, sodium 134, chloride 96, BUN increased to 102, creatinine 8.6, calculated osmolality 304, phosphorus 5.3, magnesium 2.7. Exam Vital Signs Temp Pulse Resp BP Pulse Ox O2 Del Method O2 Flow Rate 100.4 F 109 H 30 H 80/57 L 94 L Mechanical Ventilation 13 04/15/24 08:07 04/15/24 10:45 04/15/24 08:07 04/15/24 10:45 04/15/24 10:43 04/14/24 08:00 04/12/24 06:00 FiO2 40 04/15/24 10:43 Narrative Exam General: No acute distress, alert and oriented x 0,responding only to deep stimuli. HEENT: Moist mucous membranes, oropharynx clear, sedated and intubated Neck: Supple, No masses, No JVD CVS: S1S2 Regular rate and rhythm, No murmurs, rubs or gallops Lungs: Distant breath sounds, no crackles, no wheeze but mild rhonchi, intubated and mechanically ventilated Abd: Soft, NT/ND, +BS, no organomegaly Ext: no edema, warm and well perfused, peripheral arteries barely palpable Skin: No rash Psych: Unobtainable Objective Labs 04/15/24 07:20 04/15/24 12:15 Labs: Laboratory Results - last 24 hr 04/08/24 04/13/24 04/14/24 18:00 18:00 12:22 WBC RBC Hgb Hct MCV MCH MCHC RDW Std Deviation Plt Count Neut % (Auto) Lymph % (Auto) [place] % (Auto) Eos % (Auto) Baso % (Auto) Neut # (Auto) Lymph # (Auto) [place] # (Auto) Eos # (Auto) Baso # (Auto) Immature Gran # (Auto) Absolute Nucleated RBC Immature Gran % Nucleated RBC % Sodium 134 L Potassium 4.3 Chloride 96 L Carbon Dioxide 22.4 Anion Gap 16 BUN 87 H Creatinine 7.1 H* D Estim Creat Clear Calc 8.0 L eGFR 6 L* BUN/Creatinine Ratio 12 Glucose 300 H Calculated Osmolality 305 H Calcium 10.0 Corrected Calcium 10.0 Phosphorus Magnesium Total Bilirubin 0.2 L AST 12 ALT < 7 L Alkaline Phosphatase 85 Total Protein 7.8 Albumin 4.0 Globulin 3.8 H Albumin/Globulin Ratio 1.1 L CSF Albumin 25.6 CSF IgG (MS) 4.9 IgG, Serum (MS) 1010 Serum Albumin 2.5 L CSF/Serum IgG Index 0.47 CSF/Serum IgG Synthesis -2.2 Misc Test Result Cancelled 04/14/24 04/14/24 04/15/24 15:40 21:16 00:28 WBC RBC Hgb Hct MCV MCH MCHC RDW Std Deviation Plt Count Neut % (Auto) Lymph % (Auto) [place] % (Auto) Eos % (Auto) Baso % (Auto) Neut # (Auto) Lymph # (Auto) [place] # (Auto) Eos # (Auto) Baso # (Auto) Immature Gran # (Auto) Absolute Nucleated RBC Immature Gran % Nucleated RBC % Sodium 132 L 137 137 Potassium 4.5 4.4 4.7 Chloride 97 L 99 99 Carbon Dioxide 21.2 22.6 20.6 Anion Gap 14 15 17 H BUN 85 H 89 H 87 H Creatinine 7.4 H* 7.7 H* 7.9 H* Estim Creat Clear Calc 7.7 L 7.4 L 7.2 L eGFR 6 L* 5 L* 5 L* BUN/Creatinine Ratio 11 L 12 11 L Glucose 325 H 157 H D 157 H Calculated Osmolality 303 H 304 H 303 H Calcium 10.1 10.4 10.1 Corrected Calcium 10.1 10.4 H 10.2 H Phosphorus Magnesium Total Bilirubin 0.2 L 0.2 L 0.2 L AST 16 32 41 H ALT 7 L 11 12 Alkaline Phosphatase 83 82 77 Total Protein 7.8 8.7 H 8.2 Albumin 4.0 4.1 3.9 Globulin 3.8 H 4.6 H 4.3 H Albumin/Globulin Ratio 1.1 L 0.9 L 0.9 L CSF Albumin CSF IgG (MS) IgG, Serum (MS) Serum Albumin CSF/Serum IgG Index CSF/Serum IgG Synthesis Misc Test Result 04/15/24 04/15/24 05:09 07:20 WBC 30.1 H D RBC 2.83 L Hgb 7.9 L Hct 24.7 L MCV 87 MCH 27.9 MCHC 32.0 RDW Std Deviation 50.4 H Plt Count 362 D Neut % (Auto) 66 Lymph % (Auto) 6 L [place] % (Auto) 13 H Eos % (Auto) 0 Baso % (Auto) 1 Neut # (Auto) 19.8 H Lymph # (Auto) 1.7 [place] # (Auto) 3.9 H Eos # (Auto) 0.0 Baso # (Auto) 0.2 Immature Gran # (Auto) 4.57 H Absolute Nucleated RBC 0.60 H Immature Gran % 15 H Nucleated RBC % 2 H Sodium 134 L Potassium 4.7 Chloride 96 L Carbon Dioxide 23.2 Anion Gap 15 BUN 102 H* Creatinine 8.6 H* D Estim Creat Clear Calc 6.6 L eGFR 5 L* BUN/Creatinine Ratio 12 Glucose 172 H Calculated Osmolality 304 H Calcium 9.9 Corrected Calcium 9.9 Phosphorus 5.3 H Magnesium 2.7 H Total Bilirubin < 0.2 L AST 49 H ALT 11 Alkaline Phosphatase 81 Total Protein 8.2 Albumin 4.0 Globulin 4.2 H Albumin/Globulin Ratio 1.0 L CSF Albumin CSF IgG (MS) IgG, Serum (MS) Serum Albumin CSF/Serum IgG Index CSF/Serum IgG Synthesis Misc Test Result ABG Interpretation ABG results: 04/05/24 04/06/24 04/06/24 13:11 05:17 13:37 ABG pH 7.23 L 7.23 L ABG pCO2 39 31 L ABG pO2 54 L* 70 L ABG HCO3 16 L 13 L ABG O2 Saturation 86 L 92 ABG Base Excess -11 L -13 L VBG pH 7.23 L VBG pCO2 34 L VBG pO2 35 VBG Base Excess -13 L 04/06/24 04/07/24 04/08/24 16:56 12:14 14:46 ABG pH 7.42 D 7.39 7.36 ABG pCO2 35 40 44 ABG pO2 69 L 79 L 40 L* D ABG HCO3 23 24 25 ABG O2 Saturation 94 94 71 L ABG Base Excess -2 -1 -1 VBG pH VBG pCO2 VBG pO2 VBG Base Excess 04/08/24 04/08/24 04/10/24 16:20 17:19 09:05 ABG pH 7.34 L 7.35 Cancelled ABG pCO2 46 45 Cancelled ABG pO2 36 L* 113 H D Cancelled ABG HCO3 25 25 Cancelled ABG O2 Saturation 63 L 97 Cancelled ABG Base Excess -1 -1 Cancelled VBG pH VBG pCO2 VBG pO2 VBG Base Excess 04/10/24 04/10/24 04/10/24 09:41 11:45 14:26 ABG pH 7.10 L* D 7.12 L* 7.20 L ABG pCO2 75 H* D 73 H* 58 H D ABG pO2 71 L D 75 L 78 L ABG HCO3 23 24 23 ABG O2 Saturation 89 L 90 L 93 ABG Base Excess -7 L -6 L -5 L VBG pH VBG pCO2 VBG pO2 VBG Base Excess 04/10/24 04/11/24 04/11/24 15:21 05:29 17:04 ABG pH 7.25 L 7.40 D 7.39 ABG pCO2 52 H 40 D 40 ABG pO2 90 93 74 L ABG HCO3 23 25 24 ABG O2 Saturation 95 98 93 ABG Base Excess -5 L 0 -1 VBG pH VBG pCO2 VBG pO2 VBG Base Excess 04/12/24 04/12/24 05:23 11:35 ABG pH 7.41 7.40 ABG pCO2 39 40 ABG pO2 147 H D 91 D ABG HCO3 25 25 ABG O2 Saturation 98 96 ABG Base Excess 0 0 VBG pH VBG pCO2 VBG pO2 VBG Base Excess Quality Measures Quality Measures VTE prophylaxis Advance care planning discussed with:: other (ICU team) Assessment & Plan Assessment Current Active Medications: Generic Name Dose Route Start Last Admin Trade Name Freq PRN Reason Stop Dose Admin Acetaminophen 1,000 mg 04/13/24 11:30 04/14/24 12:07 Acetaminophen 500 Mg Tablet PO 04/18/24 11:31 1,000 mg QDAY@1130 DELMY Administration Acetaminophen 650 mg 04/14/24 20:50 Acetaminophen 325 Mg Tablet PO 05/05/24 23:05 Q12HR PRN Fever >100, or pain 1-3 Albuterol/Ipratropium 3 ml 04/10/24 11:45 04/15/24 10:45 Albuterol/Ipratropium (Duoneb) Rt Princess 3 Ml Nebu INH 05/10/24 11:44 3 ml Q4HRRT DELMY Administration Aspirin 325 mg 04/12/24 10:15 04/15/24 09:36 Aspirin 325 Mg Tablet NG 05/12/24 10:14 325 mg QDAY DELMY Administration Atorvastatin Calcium 80 mg 04/11/24 21:00 04/14/24 21:42 Atorvastatin Calcium 20 Mg Tablet NG 05/11/24 20:59 80 mg HS DELMY Administration Calcium Carbonate 600 mg 04/06/24 14:45 04/15/24 09:35 Calcium Carbonate 600 Mg Tablet PO 05/06/24 14:44 600 mg BID DELMY Administration Clopidogrel Bisulfate 75 mg 04/12/24 09:00 04/15/24 09:36 Clopidogrel Bisulfate 75 Mg Tablet NG 05/12/24 08:59 75 mg QDAY DELMY Administration Dextrose 25 ml 04/07/24 10:52 Dextrose 50%-Water Inj 50 Ml Syringe IV 05/07/24 10:51 Q15MIN PRN BG 50-70 responsive npo pt Dextrose 50 ml 04/07/24 10:52 Dextrose 50%-Water Inj 50 Ml Syringe IV 05/07/24 10:51 Q15MIN PRN BG <50 OR BG <70 & pt unresponsive Diphenhydramine HCl 25 mg 04/13/24 11:30 04/14/24 12:07 Diphenhydramine Elix 25 Mg/10 Ml Udc NG 04/18/24 11:31 25 mg QDAY@1130 DELMY Administration Glucagon 1 mg 04/07/24 10:52 Glucagon Inj 1 Mg Vial IM Q15MIN PRN BG <70, and no IV access Heparin Sodium (Porcine) 3,300 unit 04/06/24 15:03 04/13/24 10:53 Heparin Sod Inj 1000 Unit/Ml Vial 10 Ml INDWELLCAT 04/20/24 15:02 3,300 unit PRN PRN Administration DIALYSIS Heparin Sodium (Porcine) 5,000 unit 04/09/24 08:00 04/15/24 05:50 Heparin Sod Inj 5000 Unit/Ml Vial SC 04/23/24 07:59 5,000 unit Q8HR DELMY Administration Dexmedetomidine/Sodium Chloride 200 mcg in 50 mls @ 5.31 mls/hr 04/08/24 09:17 04/14/24 13:38 Precedex Ivpb IV 05/08/24 09:16 0 mcg/kg/hr .Q9H25M PRN 0 mls/hr Per PROTOCOL Titration Protocol 0.2 MCG/KG/HR Norepinephrine/Dextrose 8 mg in 250 mls @ 9.956 mls/hr 04/08/24 09:53 04/14/24 08:46 Levophed In D5w 8mg/250ml IV 05/08/24 09:52 0.05 mcg/kg/min .Q24H PRN 9.956 mls/hr PER PROTOCOL Titration Protocol 0.05 MCG/KG/MIN Methylprednisolone Sodium 104 mls @ 104 mls/hr 04/09/24 12:00 04/10/24 13:27 Succinate 250 mg/ Sodium IV 04/16/24 11:59 Not Given Chloride Q6HR DELMY Propofol 1,000 mg in 100 mls @ 2.955 mls/hr 04/10/24 09:50 Diprivan Ivpb IV 05/10/24 09:49 .Q24H PRN PER PROTOCOL Protocol 5 MCG/KG/MIN Valproic Acid 750 mg/ Sodium 57.5 mls @ 55 mls/hr 04/11/24 14:00 04/15/24 05:50 Chloride IV 05/08/24 21:59 55 mls/hr Q8HR DELMY Administration Phenylephrine HCl 40 mg/ 100 mls @ 1.422 mls/hr 04/11/24 20:11 Sodium Chloride IV 05/11/24 20:10 .Q24H PRN Per Cardiogenic Protocol Protocol 0.1 MCG/KG/MIN Immune Globulin 20 gm/ Immune 250 mls @ 41.667 mls/hr 04/13/24 12:00 04/14/24 14:22 Globulin 5 gm/ IV IV 04/18/24 17:59 41.667 mls/hr Miscellaneous Supplies QDAY@1200 DELMY Administration Insulin Human Regular 100 unit in 100 mls @ 9.52 mls/hr 04/14/24 11:04 04/15/24 10:02 Myxredlin IV 05/14/24 11:03 0.05 unit/kg/hr .[id number] PRN 4.76 mls/hr PER PROTOCOL Titration Protocol 0.1 UNIT/KG/HR Vancomycin/Sodium Chloride 200 mls @ 120 mls/hr 04/15/24 10:00 Vancomycin/Ns 1 Gm Ivpb IV 04/15/24 11:39 X1 ONE Albumin Human 25 gm in 100 mls @ 100 mls/hr 04/15/24 10:05 Albuminar-25 Ivpb IV PRN PRN DIALYSIS Labetalol HCl 10 mg 04/05/24 23:55 Labetalol Inj 5 Mg/Ml Vial 20 Ml IVP 05/05/24 23:54 X1 PRN BP >220/110 Lidocaine HCl 9 ml 04/06/24 11:00 Lidocaine Inj Pf 1% 5 Ml Vial INFL X1 PRN LOCAL ANESTHESIA Protocol Metoprolol Succinate 50 mg 04/12/24 19:00 04/15/24 10:04 Metoprolol Succinate Xl 25 Mg Tabcr GT 05/12/24 18:59 Not Given QDAY [facility] Ondansetron HCl 4 mg 04/05/24 23:06 Ondansetron Inj 2 Mg/Ml Inj 2 Ml IV 05/05/24 23:05 Q6H PRN NAUSEA OR VOMITING Protocol Pantoprazole Sodium 40 mg 04/06/24 09:00 04/15/24 09:35 Pantoprazole Inj 40 Mg Vial IVP 05/06/24 08:59 40 mg QDAY DELMY Administration Pharmacy Consult 1 each 04/09/24 08:54 Pharmacy Renal Dose Adjustment 1 Ea XX 05/08/24 08:59 QDAY PRN protocol Pharmacy Consult 1 each 04/15/24 10:00 Vancomycin Pharmacy To Dose 1 Each Each IV 05/15/24 09:59 QDAY PRN CONSULT Plan The patient is a 64-year-old female with significant past medical history of 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 Stroke alert was called, and underwent stroke workup. tPA not given due to out of window. On further interviewing, she reported that she has been taking some penicillin that was brought from [place] of long time ago. She also took Motrin x 2 in last 2 days. She admitted having fever, denied any chills, lightheadedness, chest pain, and any flank pain. Nephrology consultation was done for further management of ANA LAURA in CKD stage IIIa. #ANA LAURA in CKD stage III A Secondary to hypertensive nephropathy and diabetes nephropathy Likely multifactorial secondary to ATN in the setting of severe respiratory infection, complicated by ibuprofen x2 use vs glomerular disease Patient's baseline creatinine is 1.6, and GFR is 56. On admission, creatinine 5.9 and GFR 7. On admission ABG significant for acidemia with pH 7.23, pCO2 39, pO2 70. Chemistry panel revealed sodium 133, mild hyperkalemia, bicarb 15.1. ABG significant for pH 7.42 revealing improvement in acidemia, BUN 52, creatinine 4.9, EGFR 9, calcium 8.1, phosphorus 6.0. Urine electrolytes with creatinine 113, total protein 598, sodium 42 (>40 suggestive of ATN), potassium 33, chloride 27, and urea nitrogen 302. BUN/CR ratio <20 so less likely prerenal. Renal ultrasound significant for moderate bilateral renal parenchymal eschar formation, bilateral renal cortical thinning with no hydronephrosis. -Stop the offending agent, penicillin which is likely cause of possible ATN 04/08/2024: Labs were significant for hemoglobin trending down to 8.1 likely dilutional, BUN 41 and creatinine 4.4, phosphorus 5.8. Ordered ZAINAB screen, ANCA, antiproteinase 3, antimyeloperoxidase and complement level, and we will plan for renal biopsy if ANA LAURA doesn't resolve in a couple of days. -Continue to monitor renal panel -Patient will undergo 3.5 hours hemodialysis session x 1 this morning again, and we will plan for 3 L ultrafiltration goal. -Can consider trying bumex 1-2mg x1 to increase urine output. 04/10/2024: Her fingerstick blood sugar this morning was 483, hemoglobin 8.9, Chemistry panel significant for potassium 5.0, BUN 53, creatinine 5.6, and blood sugar 596. The patient is planned to undergo hemodialysis this morning. 04/11/2024: sodium 139, potassium 3.4, anion gap 18, BUN 51 and creatinine 4.7 with blood glucose 350, troponin trended up to 1.854. We will hold off on dialysis for today, and proceed with dialysis tomorrow morning. 04/12/2024: BUN 101, creatinine 7.0, EGFR 6, blood sugar 346, magnesium 3.1. Patient was tolerating hemodialysis well this morning. We will further assess the patient tomorrow morning, and if needed we will proceed with hemodialysis again. 04/14/2024: sodium 133, chloride 93, 3.9, anion gap 17, BUN 79 and creatinine 6.1. We will hold off on hemodialysis today, and proceed with hemodialysis tomorrow morning. 04/15/2024: sodium 134, chloride 96, BUN increased to 102, creatinine 8.6, calculated osmolality 304, phosphorus 5.3, magnesium 2.7, we will proceed with 4.5-hour of hemodialysis with larger size of filter with ultrafiltration goal of 1 to 2 L only. #Hypocalcemia, improved 04/05 #Hyperphosphatemia Secondary to ANA LAURA on CKD -Continue to monitor renal panel #Renal tubular acidosis type IV, improved #Hypertensive emergency, resolved #Acute encephalopathy #Stroke rule out #Hx of CVA 2018 #Acute nephrolithiasis #Hx of renal calculi #Acute hypoxemic respiratory failure #Community-acquired pneumonia #GEMMA/OHS on oxygen HS #NSTEMI type II (improving) #HTN, HLD #IDDM type II -Management deferred to primary hospitalist team. Thank you for your opportunity to participate nephrology team in this patient care. The patient's management plan was discussed with my attending physician MD Jose Serrano MD, PGY2 Attending Provider Attestation/Addendum Patient seen and examined with resident physician Dr. Nesbitt. Note reviewed, agree with findings and recommendations. Patient currently in ICU. Patient got intubated for hypoxic respiratory failure. Patient currently seen on dialysis. Tolerating dialysis without any problems. Hemodialysis for 4 hours, qb 400, 2K, ultrafiltration 1-2 L, Epogen 6000, no heparin ordered. Plan of care discussed with the dialysis nurse. Please see dialysis flowsheet for further details. Critical care time more than 35 minutes regarding plan of care and disease management. Labs/medications reviewed. Plan of care discussed with ICU team. CSF fluid showed gram-positive cocci. Cultures negative. On antibiotics. Neurology //ID on the case. Unexplained weakness and altered mental status.
--- NOTE | 2024-04-15 10:50 | PC.SS ---
Patient receiving dialysis session today.
[2024-04-15 11:24] LABS: Misc Send Out* See Sep Rpt
[2024-04-15] MEDS: VANCOMYCIN/NS 1 GM IVPB 200 ML IV (11:24)
[2024-04-15] MEDS: ACETAMINOPHEN 500 MG TABLET 1000 MG PO (11:39)
--- NOTE | 2024-04-15 11:39 | PC.NURSE ---
Venous pressure increased to 270 so turned down the blood flow.
[2024-04-15] MEDS: DiphenhydrAMINE ELIX 25 MG/10 ML UDC NG (11:40)
--- NOTE | 2024-04-15 12:11 | PC.NURSE ---
Unable to get systolic BP. Returned blood to pt. as time to short to give bolus.
[2024-04-15] MEDS: HEPARIN SOD INJ 1000 UNIT/ML VIAL 10 ML 3300 UNIT INDWELLCAT (12:16)
[2024-04-15] MEDS: INSULIN GLARGINE (Lantus) 5 UNIT/0.05 ML (PER 5 UNITS) 50 UNIT SC (12:25)
[2024-04-15] MEDS: PRE MIXED IV (12:35)
[2024-04-15] MEDS: IMMUNE GLOB GA CA IV (12:35)
[2024-04-15 12:46] LABS: Albumin, Serum 4.9 gm/dL (3.4-4.8); Anion Gap 18 (7-16); BUN/Creatinine Ratio 10 Ratio (12-20); Blood Urea Nitrogen 47 mg/dL (9-23); Calcium 10.4 mg/dL (8.3-10.6); Calcium (Corrected) 10.4 mg/dL (8.5-10.1); Carbon Dioxide 17.3 mMol/L (20.0-31.0); Chloride 96 mMol/L (98-107); Creatinine (Component) 4.5 mg/dL (0.6-1.3); Estimated Creatinine Clearance 12.7 mL/min (>60); Glucose 89 mg/dL (74-106); Magnesium 2.3 mg/dL (1.6-2.6); Osmolality,Calculated 273 (275-295); Phosphorous 5.2 mg/dL (2.4-5.1); Potassium 4.6 mMol/L (3.4-5.1); Sodium 131 mMol/L (136-145); eGFR 10 See Note
[2024-04-15] MEDS: Norepinephrine/D5W 8mg/250ml 8 MG/250 ML BAG 9.956 MG IV (12:58)
--- NOTE | 2024-04-15 13:27 | XR_ITS ---
Examination: AP chest single view TECHNIQUE: AP portable upright chest single view Exam date and time: April 15, 2024 1428 hours Comparison April 14, 2024 INDICATIONS: Hypoxic respiratory failure today. FINDINGS: Endotracheal tube tip 3.5 cm above edwin Mild prominence of ventricle Moderate vascular congestion No lobar pneumonia Right internal jugular dialysis catheter satisfactory position The orogastric tube is in the stomach IMPRESSION: Moderate vascular congestion
[2024-04-15] MEDS: DEXTROSE 50%-WATER INJ 50 ML SYRINGE 25 ML IV (13:33)
--- NOTE | 2024-04-15 14:45 | ESPR_ITS ---
Subjective Subjective Interval history: wbc may still be steroid related. the effect lingers almost a week at times. Exam Vital Signs Temp Pulse Resp BP Pulse Ox O2 Del Method O2 Flow Rate 99.7 F 102 H 29 H 68/48 L 99 Mechanical Ventilation 13 04/15/24 13:05 04/15/24 12:58 04/15/24 12:13 04/15/24 12:58 04/15/24 12:13 04/14/24 08:00 04/12/24 06:00 FiO2 40 04/15/24 12:13 Objective - Internal Medicine Labs 04/15/24 07:20 04/15/24 12:15 Labs: Laboratory Results - last 24 hr 04/08/24 04/14/24 04/14/24 18:00 15:40 21:16 WBC RBC Hgb Hct MCV MCH MCHC RDW Std Deviation Plt Count Neut % (Auto) Lymph % (Auto) [place] % (Auto) Eos % (Auto) Baso % (Auto) Neut # (Auto) Lymph # (Auto) [place] # (Auto) Eos # (Auto) Baso # (Auto) Immature Gran # (Auto) Absolute Nucleated RBC Immature Gran % Nucleated RBC % Sodium 132 L 137 Potassium 4.5 4.4 Chloride 97 L 99 Carbon Dioxide 21.2 22.6 Anion Gap 14 15 BUN 85 H 89 H Creatinine 7.4 H* 7.7 H* Estim Creat Clear Calc 7.7 L 7.4 L eGFR 6 L* 5 L* BUN/Creatinine Ratio 11 L 12 Glucose 325 H 157 H D Calculated Osmolality 303 H 304 H Calcium 10.1 10.4 Corrected Calcium 10.1 10.4 H Phosphorus Magnesium Total Bilirubin 0.2 L 0.2 L AST 16 32 ALT 7 L 11 Alkaline Phosphatase 83 82 Total Protein 7.8 8.7 H Albumin 4.0 4.1 Globulin 3.8 H 4.6 H Albumin/Globulin Ratio 1.1 L 0.9 L CSF Albumin 25.6 CSF IgG (MS) 4.9 IgG, Serum (MS) 1010 Serum Albumin 2.5 L CSF/Serum IgG Index 0.47 CSF/Serum IgG Synthesis -2.2 04/15/24 04/15/24 04/15/24 00:28 05:09 07:20 WBC 30.1 H D RBC 2.83 L Hgb 7.9 L Hct 24.7 L MCV 87 MCH 27.9 MCHC 32.0 RDW Std Deviation 50.4 H Plt Count 362 D Neut % (Auto) 66 Lymph % (Auto) 6 L Atlantic % (Auto) 13 H Eos % (Auto) 0 Baso % (Auto) 1 Neut # (Auto) 19.8 H Lymph # (Auto) 1.7 Atlantic # (Auto) 3.9 H Eos # (Auto) 0.0 Baso # (Auto) 0.2 Immature Gran # (Auto) 4.57 H Absolute Nucleated RBC 0.60 H Immature Gran % 15 H Nucleated RBC % 2 H Sodium 137 134 L Potassium 4.7 4.7 Chloride 99 96 L Carbon Dioxide 20.6 23.2 Anion Gap 17 H 15 BUN 87 H 102 H* Creatinine 7.9 H* 8.6 H* D Estim Creat Clear Calc 7.2 L 6.6 L eGFR 5 L* 5 L* BUN/Creatinine Ratio 11 L 12 Glucose 157 H 172 H Calculated Osmolality 303 H 304 H Calcium 10.1 9.9 Corrected Calcium 10.2 H 9.9 Phosphorus 5.3 H Magnesium 2.7 H Total Bilirubin 0.2 L < 0.2 L AST 41 H 49 H ALT 12 11 Alkaline Phosphatase 77 81 Total Protein 8.2 8.2 Albumin 3.9 4.0 Globulin 4.3 H 4.2 H Albumin/Globulin Ratio 0.9 L 1.0 L CSF Albumin CSF IgG (MS) IgG, Serum (MS) Serum Albumin CSF/Serum IgG Index CSF/Serum IgG Synthesis 04/15/24 12:15 WBC RBC Hgb Hct MCV MCH MCHC RDW Std Deviation Plt Count Neut % (Auto) Lymph % (Auto) Atlantic % (Auto) Eos % (Auto) Baso % (Auto) Neut # (Auto) Lymph # (Auto) [place] # (Auto) Eos # (Auto) Baso # (Auto) Immature Gran # (Auto) Absolute Nucleated RBC Immature Gran % Nucleated RBC % Sodium 131 L Potassium 4.6 Chloride 96 L Carbon Dioxide 17.3 L Anion Gap 18 H BUN 47 H Creatinine 4.5 H* D Estim Creat Clear Calc 12.7 L eGFR 10 L* BUN/Creatinine Ratio 10 L Glucose 89 D Calculated Osmolality 273 L Calcium 10.4 Corrected Calcium 10.4 H Phosphorus 5.2 H Magnesium 2.3 Total Bilirubin AST ALT Alkaline Phosphatase Total Protein Albumin 4.9 H D Globulin Albumin/Globulin Ratio CSF Albumin CSF IgG (MS) IgG, Serum (MS) Serum Albumin CSF/Serum IgG Index CSF/Serum IgG Synthesis ABG Interpretation ABG results: 04/05/24 04/06/24 04/06/24 13:11 05:17 13:37 ABG pH 7.23 L 7.23 L ABG pCO2 39 31 L ABG pO2 54 L* 70 L ABG HCO3 16 L 13 L ABG O2 Saturation 86 L 92 ABG Base Excess -11 L -13 L VBG pH 7.23 L VBG pCO2 34 L VBG pO2 35 VBG Base Excess -13 L 04/06/24 04/07/24 04/08/24 16:56 12:14 14:46 ABG pH 7.42 D 7.39 7.36 ABG pCO2 35 40 44 ABG pO2 69 L 79 L 40 L* D ABG HCO3 23 24 25 ABG O2 Saturation 94 94 71 L ABG Base Excess -2 -1 -1 VBG pH VBG pCO2 VBG pO2 VBG Base Excess 04/08/24 04/08/24 04/10/24 16:20 17:19 09:05 ABG pH 7.34 L 7.35 Cancelled ABG pCO2 46 45 Cancelled ABG pO2 36 L* 113 H D Cancelled ABG HCO3 25 25 Cancelled ABG O2 Saturation 63 L 97 Cancelled ABG Base Excess -1 -1 Cancelled VBG pH VBG pCO2 VBG pO2 VBG Base Excess 04/10/24 04/10/24 04/10/24 09:41 11:45 14:26 ABG pH 7.10 L* D 7.12 L* 7.20 L ABG pCO2 75 H* D 73 H* 58 H D ABG pO2 71 L D 75 L 78 L ABG HCO3 23 24 23 ABG O2 Saturation 89 L 90 L 93 ABG Base Excess -7 L -6 L -5 L VBG pH VBG pCO2 VBG pO2 VBG Base Excess 04/10/24 04/11/24 04/11/24 15:21 05:29 17:04 ABG pH 7.25 L 7.40 D 7.39 ABG pCO2 52 H 40 D 40 ABG pO2 90 93 74 L ABG HCO3 23 25 24 ABG O2 Saturation 95 98 93 ABG Base Excess -5 L 0 -1 VBG pH VBG pCO2 VBG pO2 VBG Base Excess 04/12/24 04/12/24 05:23 11:35 ABG pH 7.41 7.40 ABG pCO2 39 40 ABG pO2 147 H D 91 D ABG HCO3 25 25 ABG O2 Saturation 98 96 ABG Base Excess 0 0 VBG pH VBG pCO2 VBG pO2 VBG Base Excess Assessment & Plan A&P Narrative 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 noted this admit. may have been developing with hx of dm and proteinuria that appears to have been long standing Essential hypertension Obesity with possible obesity ventilation syndrome and GEMMA other problems as noted lack of overt bacterial infection noted. problem seems to be non infectious do not use procal in tiffany or ckd. the chemical is made by the body and renally cleared, so in tiffany or ckd, it may accumulate. please do not repeat that test in this setting ever. it is also elevated post operatively and sometimes in [place], so those are some other settings to NOT use procal. Time Spent With Patient Time: Total time spent is greater than 50% in coordination of care (as documented) at patient's floor/unit and/or counseling patient:
--- NOTE | 2024-04-15 15:02 | XR_ITS ---
Examination: CTA abdominal aorta iliofemoral runoff. 2-D sagittal coronal reconstructions. 3-D reconstructions, vascular April 15, 2024 10:21 PM Indications: Leg pain and swelling this week Technique: Multiple CTA images of the abdominal aorta iliofemoral runoff arterial vessels, 2.0 mm slice thickness, post intravenous administration 130 cc Isovue-370 2-D sagittal coronal reconstructions. 3-D reconstructions, vascular 3-D postprocessing, including vascular maximum intensity projection images, 3-D volume rendering Low dose protocols were performed. One or more of the following dose reduction techniques were used; automated exposure control, adjustment of the mA and/or KV according to patient size, use of iterative reconstruction technique. Findings: Bibasilar atelectasis No focal liver or splenic lesion No gallstones Moderate bilateral renal parenchymal scar formation No bowel obstruction Heavy abdominal aortic calcification Atrophic uterus Contracted urinary bladder No significant stenoses common iliac and external iliac or common femoral arteries Very heavy calcification superficial femoral arteries with multiple 70% plus stenosis stenoses Severely attenuated popliteal arteries bilaterally Multiple high-grade short segment occlusions right and left anterior tibial posterior tibial and main continuation trunk Impression: Multiple high-grade short segment stenoses superficial femoral arteries Multiple short segment occlusions anterior tibial posterior tibial and main continuation trunk bilaterally
--- NOTE | 2024-04-15 15:25 | XR_ITS ---
Examination: CT chest with intravenous contrast 2-D sagittal and coronal reconstructions Exam date and time: April 15, 2024 10:21 PM Indications: Onset shortness of breath chest pain today CTDI:vol (mGy) 2829 DLP: (mGycm) 1001 Technique: Multiple axial sections of the thorax have been obtained. Sections have been obtained, 3 mm slice thickness. Mediastinal and lung density settings have been obtained. Intravenous contrast administered, 130 cc Isovue-370. 2-D sagittal, coronal images obtained. Low dose protocols were performed. One or more of the following dose reduction techniques were used; automated exposure control, adjustment of the mA and/or KV according to patient size, use of iterative reconstruction technique. Findings: No thoracic aortic aneurysm dilatation No pulmonary artery emboli Endotracheal tube tip 25 mm above edwin No paratracheal tracheobronchial or bronchopulmonary adenopathy Moderate vascular congestion Significant bibasilar pneumonia No focal liver or splenic lesion Orogastric tube in the stomach Enlarged pancreatic head with possible edema Moderate renal parenchymal scar formation Impression: Significant bibasilar pneumonia Recommend MRCP follow-up to assess enlarged pancreatic head and possibly edema surrounding the pancreas
[2024-04-15 15:42] LABS: Lactate (Lactic Acid) 7.6 mMol/L (0.4-2.0)
[2024-04-15 15:55] LABS: Base Excess -6 (-3-3); HCO3 18 mEq/L (20-26); Inspired Oxygen, FIO2 35 %; O2 Saturation 93 % (91-98); PCO2 31 mmHg (32.0-48.0); PO2 75 mmHg (83-108); pH, Arterial 7.37 (7.35-7.45)
[2024-04-15 15:56] LABS: Allen Test Not Performed; Puncture Site Right Radial
--- NOTE | 2024-04-15 16:19 | XR_ITS ---
Examination: CT brain head without contrast. 2-D sagittal coronal reconstructions Date and time of exam:April 15, 2024 10:19 PM Indications: Altered mental status beginning today CTDI: vol (mGy):53 DLP: (mGycm):1158 Technique: Multiple CT axial sections of the brain have been obtained, 5 mm slice thickness. Contrast has not been administered. 2-D sagittal, coronal reconstructions have been obtained Low dose protocols were performed. One or more of the following dose reduction techniques were used; automated exposure control, adjustment of the mA and/or KV according to patient size, use of iterative reconstruction technique. Findings: No significant ventricular enlargement. Old brainstem infarct Intra-axial or extra-axial hemorrhage density is not seen. No mass effect or midline shift Basal cisterns are not remarkable. Fourth ventricle is midline. Cranial vault intact. Impression: Negative for acute hemorrhage, mass effect or midline shift Consider brain MRI follow-up stroke protocol
[2024-04-15 16:34] LABS: Fibrinogen > 860 mg/dL (175-375)
[2024-04-15] MEDS: INSULIN LISPRO (AdmeLOG) 1 UNIT/0.01 ML UNIT SC ×2 (18:32→22:52)
[2024-04-15 18:39] LABS: Reflex Lactate? Y
[2024-04-15 19:45] LABS: Lactic Acid, 3 HR 4.3 mMol/L (0.4-2.0)
[2024-04-15] MEDS: ATORVASTATIN CALCIUM 20 MG TABLET 80 MG NG (21:31)
--- NOTE | 2024-04-15 22:42 | PD.NEUROPROG ---
Documentation for date of: 04/15/24 Subjective Subjective Interval history: Patient was seen in ICU today. Patient continued to remain intubated and on mechanical ventilatory support. No more myoclonic jerks noted. She just came back from dialysis and has not been responsive to painful stimulation even. Exam - Neurology Vital Signs Temp Pulse Resp BP Pulse Ox O2 Del Method O2 Flow Rate 99.8 F 111 H 44 H 136/63 H 90 L Mechanical Ventilation 13 04/15/24 20:00 04/15/24 20:16 04/15/24 18:45 04/15/24 20:16 04/15/24 20:16 04/14/24 08:00 04/12/24 06:00 FiO2 35 04/15/24 18:45 Narrative Exam GENERAL APPEARANCE: Well-developed, obese built female intubated and on mechanical ventilatory support HEENT: Normocephalic, atraumatic, extraocular movements intact. Pupils: Equal reacting to light NECK: Supple, no JVD or bruits. CARDIOVASULAR: Heart: S1, S2 heard, regular without S3-S4 or murmur no rubs or gallops. LUNGS/CHEST: Clear to auscultation bilaterally. No rails, rhonchi, or wheezing. Normal inspection. ABDOMEN: Soft, nontender, with normal bowel sounds. No pulsatile masses. No rebound, rigidity, or guarding. Normal inspection and palpation. EXTREMITIES: Normal inspection and palpation. No edema, clubbing or cyanosis. SKIN: Warm and dry without rashes. Normal inspection. MUSCULOSKELETAL: No cervical, thoracic, lumbar or midline bony tenderness. Normal inspection. NEURO: Comatose, not responsive to painful stimulation even on the right upper and lower extremities unlike before, no more myoclonic twitching in right hemiface noted. No signs of meningeal irritation noted. Rest of the exam limited secondary to mental status PSYCHIATRIC: Limited Objective Labs 04/16/24 01:26 04/16/24 01:26 Labs: Laboratory Results - last 24 hr 04/08/24 04/15/24 04/15/24 18:00 00:28 05:09 WBC RBC Hgb Hct MCV MCH MCHC RDW Std Deviation Plt Count Neut % (Auto) Lymph % (Auto) Mcintosh % (Auto) Eos % (Auto) Baso % (Auto) Neut # (Auto) Lymph # (Auto) [place] # (Auto) Eos # (Auto) Baso # (Auto) Immature Gran # (Auto) Absolute Nucleated RBC Immature Gran % Nucleated RBC % Fibrinogen Puncture Site ABG pH ABG pCO2 ABG pO2 ABG HCO3 ABG O2 Saturation ABG Base Excess FiO2 Sodium 137 134 L Potassium 4.7 4.7 Chloride 99 96 L Carbon Dioxide 20.6 23.2 Anion Gap 17 H 15 BUN 87 H 102 H* Creatinine 7.9 H* 8.6 H* D Estim Creat Clear Calc 7.2 L 6.6 L eGFR 5 L* 5 L* BUN/Creatinine Ratio 11 L 12 Glucose 157 H 172 H Calculated Osmolality 303 H 304 H Lactic Acid Calcium 10.1 9.9 Corrected Calcium 10.2 H 9.9 Phosphorus 5.3 H Magnesium 2.7 H Total Bilirubin 0.2 L < 0.2 L AST 41 H 49 H ALT 12 11 Alkaline Phosphatase 77 81 Total Protein 8.2 8.2 Albumin 3.9 4.0 Globulin 4.3 H 4.2 H Albumin/Globulin Ratio 0.9 L 1.0 L CSF Albumin 25.6 CSF IgG (MS) 4.9 IgG, Serum (MS) 1010 Serum Albumin 2.5 L CSF/Serum IgG Index 0.47 CSF/Serum IgG Synthesis -2.2 04/15/24 04/15/24 04/15/24 07:20 12:15 15:20 WBC 30.1 H D RBC 2.83 L Hgb 7.9 L Hct 24.7 L MCV 87 MCH 27.9 MCHC 32.0 RDW Std Deviation 50.4 H Plt Count 362 D Neut % (Auto) 66 Lymph % (Auto) 6 L Mcintosh % (Auto) 13 H Eos % (Auto) 0 Baso % (Auto) 1 Neut # (Auto) 19.8 H Lymph # (Auto) 1.7 Mcintosh # (Auto) 3.9 H Eos # (Auto) 0.0 Baso # (Auto) 0.2 Immature Gran # (Auto) 4.57 H Absolute Nucleated RBC 0.60 H Immature Gran % 15 H Nucleated RBC % 2 H Fibrinogen > 860 H* Puncture Site ABG pH ABG pCO2 ABG pO2 ABG HCO3 ABG O2 Saturation ABG Base Excess FiO2 Sodium 131 L Potassium 4.6 Chloride 96 L Carbon Dioxide 17.3 L Anion Gap 18 H BUN 47 H Creatinine 4.5 H* D Estim Creat Clear Calc 12.7 L eGFR 10 L* BUN/Creatinine Ratio 10 L Glucose 89 D Calculated Osmolality 273 L Lactic Acid 7.6 H* Calcium 10.4 Corrected Calcium 10.4 H Phosphorus 5.2 H Magnesium 2.3 Total Bilirubin AST ALT Alkaline Phosphatase Total Protein Albumin 4.9 H D Globulin Albumin/Globulin Ratio CSF Albumin CSF IgG (MS) IgG, Serum (MS) Serum Albumin CSF/Serum IgG Index CSF/Serum IgG Synthesis 04/15/24 04/15/24 15:47 19:24 WBC RBC Hgb Hct MCV MCH MCHC RDW Std Deviation Plt Count Neut % (Auto) Lymph % (Auto) [place]osh % (Auto) Eos % (Auto) Baso % (Auto) Neut # (Auto) Lymph # (Auto) [place]osh # (Auto) Eos # (Auto) Baso # (Auto) Immature Gran # (Auto) Absolute Nucleated RBC Immature Gran % Nucleated RBC % Fibrinogen Puncture Site Right Radial ABG pH 7.37 ABG pCO2 31 L ABG pO2 75 L ABG HCO3 18 L ABG O2 Saturation 93 ABG Base Excess -6 L FiO2 35 Sodium Potassium Chloride Carbon Dioxide Anion Gap BUN Creatinine Estim Creat Clear Calc eGFR BUN/Creatinine Ratio Glucose Calculated Osmolality Lactic Acid 4.3 H* Calcium Corrected Calcium Phosphorus Magnesium Total Bilirubin AST ALT Alkaline Phosphatase Total Protein Albumin Globulin Albumin/Globulin Ratio CSF Albumin CSF IgG (MS) IgG, Serum (MS) Serum Albumin CSF/Serum IgG Index CSF/Serum IgG Synthesis ABG Interpretation ABG results: 04/05/24 04/06/24 04/06/24 13:11 05:17 13:37 ABG pH 7.23 L 7.23 L ABG pCO2 39 31 L ABG pO2 54 L* 70 L ABG HCO3 16 L 13 L ABG O2 Saturation 86 L 92 ABG Base Excess -11 L -13 L VBG pH 7.23 L VBG pCO2 34 L VBG pO2 35 VBG Base Excess -13 L 04/06/24 04/07/24 04/08/24 16:56 12:14 14:46 ABG pH 7.42 D 7.39 7.36 ABG pCO2 35 40 44 ABG pO2 69 L 79 L 40 L* D ABG HCO3 23 24 25 ABG O2 Saturation 94 94 71 L ABG Base Excess -2 -1 -1 VBG pH VBG pCO2 VBG pO2 VBG Base Excess 04/08/24 04/08/24 04/10/24 16:20 17:19 09:05 ABG pH 7.34 L 7.35 Cancelled ABG pCO2 46 45 Cancelled ABG pO2 36 L* 113 H D Cancelled ABG HCO3 25 25 Cancelled ABG O2 Saturation 63 L 97 Cancelled ABG Base Excess -1 -1 Cancelled VBG pH VBG pCO2 VBG pO2 VBG Base Excess 04/10/24 04/10/24 04/10/24 09:41 11:45 14:26 ABG pH 7.10 L* D 7.12 L* 7.20 L ABG pCO2 75 H* D 73 H* 58 H D ABG pO2 71 L D 75 L 78 L ABG HCO3 23 24 23 ABG O2 Saturation 89 L 90 L 93 ABG Base Excess -7 L -6 L -5 L VBG pH VBG pCO2 VBG pO2 VBG Base Excess 04/10/24 04/11/24 04/11/24 15:21 05:29 17:04 ABG pH 7.25 L 7.40 D 7.39 ABG pCO2 52 H 40 D 40 ABG pO2 90 93 74 L ABG HCO3 23 25 24 ABG O2 Saturation 95 98 93 ABG Base Excess -5 L 0 -1 VBG pH VBG pCO2 VBG pO2 VBG Base Excess 04/12/24 04/12/24 04/15/24 05:23 11:35 15:47 ABG pH 7.41 7.40 7.37 ABG pCO2 39 40 31 L ABG pO2 147 H D 91 D 75 L ABG HCO3 25 25 18 L ABG O2 Saturation 98 96 93 ABG Base Excess 0 0 -6 L VBG pH VBG pCO2 VBG pO2 VBG Base Excess Assessment & Plan Assessment and plan (1) Altered mental status: Status: Acute Assessment and plan: 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 Continue with aspirin and Plavix 75 mg for prophylaxis along with statin. Noted significant intracranial stenosis in the MRA even though images are degraded from motion. Repeat EEG showed diffuse slowing with periodic epileptiform discharges suggestive of nonconvulsive seizures. Follow-up with autoimmune antibodies : LGI 1 and NMDA receptor antibody there are send out (2) ANA LAURA (acute kidney injury): Status: Acute Assessment and plan: Status post to dialysis this morning (3) Non-ST elevation (NSTEMI) myocardial infarction: Status: Acute Assessment and plan: cardiology consulted, recommended aspirin and statin (4) Acute hypoxic respiratory failure: Status: Acute Assessment and plan: Got intubated and on mechanical ventilatory support (5) Accelerated hypertension: Status: Acute Assessment and plan: Dropped following dialysis to the extent of needing Levophed
[2024-04-16] VITALS (28 sets, daily range): BP systolic 60–249; BP diastolic 28–120; PULSE 0–188; RESP 0–22; TEMP 37.6; O2SAT 57–100
--- NOTE | 2024-04-16 00:59 | EKG_ITS ---
[facility] Test Date: 2024-04-16 Pat Name: MANSI GALVIN [facility] Gender[facility] Tin Flopper: VIVEK : 1960 Requested By: Fede Sims Order Number: [id number] Reading MD: Fede Sims Measurements Intervals Ashley Rate: 88 P: LA: QRS: -80 QRSD: 145 T: 45 QT: 320 QTc: 387 Interpretive Statements ATRIAL FIBRILLATION MARKED LEFT AXIS DEVIATION RIGHT BUNDLE BRANCH BLOCK MARKED ST DEPRESSION, CONSIDER SUBENDOCARDIAL INJURY Compared to ECG 04/11/2024 19:26:29 Right bundle-branch block now present ST (T wave) deviation still present /store/S0/[id number]
[2024-04-16 01:42] LABS: Base Excess, Venous -12 (-3-3); O2 Saturation, Venous 27 % (96-97); PCO2, Venous 72 mmHg (36-56); PO2, Venous 31 mmHg (15-58); pH, Venous 7.04 (7.33-7.66)
[2024-04-16 01:44] LABS: Basophils # (Auto) 0.2 Thou/mm3 (0.0-0.2); Basophils % (Auto) 0 % (0-2.5); Eosinophils % (Auto) 0 % (0-10); Hematocrit 30.1 % (36.0-46.0); Hemoglobin 9.2 g/dL (12.0-16.0); Immature Granulocytes % (Auto) 24 % (0-0); Lactate (Lactic Acid) 10.1 mMol/L (0.4-2.0); Lymphocytes % (Auto) 16 % (10-50); Mean Corpuscular HGB Conc 30.6 g/dl (31.0-37.0); Mean Corpuscular Hemoglobin 28.6 pg (25.0-35.0); Mean Corpuscular Volume 94 fL (80-100); Monocytes # (Auto) 4.8 Thou/mm3 (0.0-0.8); Monocytes % (Auto) 10 % (0-12); Neutrophils # (Auto) 24.2 Thou/mm3 (1.8-7.7); Neutrophils % (Auto) 50 % (37-80); Nucleated Red Blood Cell # 3.65 Thou/mm3 (0.00-0.00); Nucleated Red Blood Cell % 7 /100 WBC (0); Platelet Count 305 Thou/mm3 (140-440); RDW Standard Deviation 55.9 fL (36.4-46.3); Red Blood Count 3.22 Miln/mm3 (4.00-5.20)
--- NOTE | 2024-04-16 01:46 | PD.DPN ---
Documentation for date of: 04/16/24 Pronouncement Note Date and Time of Date of : 04/16/24 Time of : 01:36 PCOD Preliminary cause of : Cardiopulmonary arrest Contributing Factors (1) Altered mental status: (2) ANA LAURA (acute kidney injury): (3) Non-ST elevation (NSTEMI) myocardial infarction: (4) Acute hypoxic respiratory failure: (5) Accelerated hypertension: Summary Additional details: Around 1 AM got call from ICU nurse regarding patient being bradycardic. Upon arrival patient was bradycardic with a heart rate in the mid 30s to low 40s sustained. Patient then started sustaining heart rate in the low 30s and atropine was given at that time. Patient immediately went into PEA. CODE BLUE was called compressions were started. After 3 rounds of CPR we achieved ROSC. Patient noted to be in possible V. tach and patient was shocked. Heart rate went into the 90s and back up into the 140s but without a pulse. Compressions were continued and patient was shocked again without improvement. Patient went back into PEA for the remainder of the CODE BLUE. Team performed CPR for about 35 minutes in total before deciding to stop CPR. Patient pronounced at 1:36 AM. Pupils were fixed and dilated with no reaction to light. No heart sounds or breath sounds were heard after a minute of auscultation. Family was notified via phone and condolences were given in person once they arrived. Attending Dr. Gurrola present during CODE BLUE. Fede Sims MD PGY3. Discussed with afshin, her daughters who came to the family room. All questions were answered, they were led to room 257. Additional Data Attending physician: Marsha Contreras DO
[2024-04-16 02:23] LABS: Alanine Aminotransferase 257 U/L (10-49); Albumin, Serum 4.4 gm/dL (3.4-4.8); Albumin/Globulin Ratio 0.8 (1.2-2.2); Alkaline Phosphatase 105 U/L (46-116); Anion Gap 23 (7-16); Aspartate Amino Transferase 1746 U/L (0-34); BUN/Creatinine Ratio 11 Ratio (12-20); Bilirubin,Total 0.3 mg/dL (0.3-1.2); Blood Urea Nitrogen 72 mg/dL (9-23); Calcium 9.5 mg/dL (8.3-10.6); Calcium (Corrected) 9.5 mg/dL (8.5-10.1); Carbon Dioxide 17.5 mMol/L (20.0-31.0); Chloride 92 mMol/L (98-107); Creatinine (Component) 6.6 mg/dL (0.6-1.3); Estimated Creatinine Clearance 8.6 mL/min (>60); Globulin 5.2 gm/dL (2.3-3.5); Glucose 123 mg/dL (74-106); Magnesium 2.7 mg/dL (1.6-2.6); Osmolality,Calculated 286 (275-295); Sodium 132 mMol/L (136-145); Total Protein 9.6 gm/dL (5.7-8.2); eGFR 6 See Note
[2024-04-16 02:24] LABS: Potassium 7.9 mMol/L (3.4-5.1)
--- NOTE | 2024-04-16 03:22 | DES_ITS ---
<Statement entered by Mallory Barrett MD - 04/17/24 11:08> TOTAL TIME: 45MINUTES ON DIRECT MEDICAL CARE, MANAGEMENT - COORDINATION AND COUNSELING > 50% OF TOTAL TIME I saw and evaluated the patient. I reviewed the resident?s note and agree with findings and plan as documented in the resident?s note. I was informed the patient overnight. Discussed the case with the resident team inform me that the patient developed hemodynamic instability overnight with bradycardia which eventually led to PEA arrest. Review of imaging confirms patient had significant pneumonia. Her pre-existing severe peripheral vascular disease was also possibly contributing as a significant comorbidity. Evidence of severe abdominal calcifications as well as areas of stenosis and occlusion in small segments of the posterior tibialis and anterior tibialis was mention on the CTA. Per the overnight resident signout to the day team, the patient was too unstable for further interventions. In addition there is no vascular surgery service or her interventional radiology service that at is available at this institution. Documentation for date of: 04/16/24 Summary Date and Time Date of admission: 04/05/24 23:06 Summary Hospital Course: Sofiya Vogt is a 64-year-old female with a past medical history of CVA in 2018 with residual left-sided deficits, nephrolithiasis, hypertension, and hyperlipidemia, and type 2 diabetes mellitus, and anemia requiring transfusion who presented to the ED on 04/05 with altered mental status and slurred speech. Upon arrival to the ED, stroke alert was called and CT head negative, however patient outside of TNK window. MRI brain recommended but given altered mental status, inability to follow commands, and requiring HFNC, was not able to obtain. Echo on 04/05 negative for bubble study and EF 55 to 60%. Carotid Doppler poor study due to patient motion. Labs in ED showed significantly elevated Cr from baseline and TDC placed on 04/06 and received total of 6 HD sessions throughout hospital course. Multiple rapid responses during stay. Inital RR on 04/06 for fever, 04/07 for twitching on right side of face and again on 04/07 for apnea after dose of lorazepam. On 04/08 ICU consulted for increased oxygen requirements in setting AMS and evaluated if patient will require closer monitoring to protect airways. GCS of 11 at the time but after returning from CT, FiO2 increased from 50% to 80% and upgraded to ICU for closer monitoring. CT head again negative but again degraded image quality noted. LP obtained on same day and noted elevated opening pressure=with elevated protein glucose. EEG showed diffuse slowing without epileptic waveforms. On 04/09, started high-dose steroids for suspicion of autoimmune encephalitis. NG tube placed for feeds given patient n.p.o. since admission and tube feeding started. Given decreased oxygen requirements, downgraded back to floors and care resumed by medical team on on 04/10. However, RR in a.m. of 04/10 called for O2 saturation of 86% on 15 L nonrebreather with GCS 3, so upgraded to ICU for RSI. MRI obtained and showed acute infarct of anterior right brainstem (pontine level) and acute infarct right basal ganglia and started on aspirin, Plavix, and statin. ST depressions noted on telemetry, and EKG obtained showed ST depressions in leads V2 through V6. Previous EKG on 04/[address] depressions in leads V4 through V6. Cardiology consulted, and given patient's clinical status, no plans for cardiac intervention and no heparin drip. Recommended aspirin, statin, and beta-vero if neurology agrees but already on aspirin, Plavix, and statin. In evening of 04/11, noted to have new onset A-fib with RVR at 160-170 bpm. Given metoprolol tartrate 2.5 mg IV x 1, amiodarone bolus, and then amiodarone drip and patient converted to sinus tachycardia. Following day, remained sinus tachycardia without any more epsiodes of a-fib. WBC also noted to increase overnight and repeat CXR obtained and showed improvement of bilateral infiltrates. On 04/13, spiked fever with increasing WBC. After consulting neurology, recommend to continue treatment for autoimmune encephalitis but will instead start IVIG on 04/13 as blood sugars signifiantly elevated after 1 day of IV steroids. Meropenem also started to treat sepsis of unknown source, renally dosed, and infectious disease consulted. Repeat LP to rule out lesion of the spinal cord done and again showed elevated glucose and protein but no WBCs. On 04/14, started on insulin drip as blood sugars remained in mid 300s with 60 units glargine and q4 SSI that improved blood sugars to 130-150s following day and so insulin drip stopped. Given recurrent fever spikes, vancomycin started due to concern for line-associated infection. Spoke to nephrology with aim to bring BUN below 60, remove TDC for dialysis holiday, obtain blood cultures and place temporary line. After dialysis, 1.8 L removed and required levophed due to hypotension with mottling noted in lower extremities but warm to touch. Repeat CMP after dialysis showed improved BUN and Cr but drop in HCO3 and incr ease in AG. Lactate elevated and ABG showed appropriate respiratory compensation. Decision for collins CT and CTA abdomen/pelvis that resulted at midnight. However, at 1 AM, patient went bradycardic at 30-40 bpm. Given 1 time dose of atropine and patient immediately went into PEA, so code blue called and compressions started. After 3 rounds of CPR, ROSC achieved and noted to be in possible VT so patient was shocked. HR went back up to 140s but pulseless. Compressions continued and shocked again without improvement. CPR performed for 35 minutes, 9 rounds, and pronounced at 1:36 AM. Pupils fixed, dilated, without reaction to light. No heart or breath sounds auscultated after 1 minute. Suspected ultimate cause of to be due to septic shock. Family notified via phone and condolences given in person upon arrival. Additional Data Confirmation of as documented by pronouncing clinician: no pulse, no respirations, no heart sounds and pupils fixed and dilated Family: contacted Attending physician: Marsha Contreras, DO Was code activated?: Yes Autopsy requested?: No property insurance claims examiner notified?: No Organ bank notified?: No Hospice patient?: No Visit Providers Provider Primary care physician: SUNNY Whitney Consults: 04/05/24 23:08 Consult to Nephrology Stat Comment: Consulting Provider: Conner Sheridan Consult to Urology Stat Comment: Renal calculi Consulting Provider: Mounika Pinto 04/05/24 23:16 Consult to Nephrology Stat Comment: Consulting Provider: Conner Sheridan 04/05/24 23:35 Consult to Neurology / Tele-Neurology Routine Comment: Consulting Provider: Jaquan Bertrand 04/07/24 15:56 Consult to Biochemistry Teacher Urgent Comment: Consulting Provider: Mary Bardales 04/09/24 10:53 Referral Registered Dietitian Routine Comment: Re-evaluate s/p NG tube placement for tube feeds 04/10/24 17:28 Consult to Cardiology Urgent Comment: Consulting Provider: Chad Ngo 04/13/24 09:54 Consult to Infectious Diseases Routine Comment: Consulting Provider: Chapito Campbell Diagnosis PCOD Cause of : Cardiopulmonary arrest with successful resuscitation Contributing Factors (1) Altered mental status: (2) ANA LAURA (acute kidney injury): (3) Non-ST elevation (NSTEMI) myocardial infarction: (4) Acute hypoxic respiratory failure: (5) Accelerated hypertension: Discharge Plan Plan Patient Disposition: Prescriptions/Referrals Referrals: Evon Paul FNP [Primary Care Provider] - Patient/Caregiver Discharge Instructions Print Language: Israeli Discharge Order Discharge Orders: Discharge (Routine); Ordered 04/16/24 Ordered By: Fede Sims
[2024-04-16 04:40] LABS: Reflex Lactate? Y
[2024-04-16 19:48] LABS: Cryptococcal Source CEREBROSPINAL FLUID; HSV-1 DNA, CSF NOT DETECTED copies/mL; HSV-1 DNA, CSF Source CEREBROSPINAL FLUID; West Nile Virus (IgG), CSF <1.30
[2024-04-17 06:40] LABS: ANA Screen, IFA NEGATIVE (NEGATIVE); ANCA Screen NEGATIVE (NEGATIVE); Complement Component C3* 116 mg/dL (83-193); Complement Component C4c* 38 mg/dL (15-57); Myeloperoxidase Ab <1.0 AI (<1.0); Proteinase-3 Ab <1.0 AI (<1.0)
[2024-04-17 06:41] LABS: Cryptococcal Ag Screen NOT DETECTED; HSV-2 DNA, CSF NOT DETECTED copies/mL; West Nile Virus (IgM), CSF <0.90
[2024-04-17 11:21] LABS: Albumin, CSF 27.6 mg/dL (8.0-42.0); IgG Index, CSF 0.39 (<0.70); IgG, CSF 5.7 mg/dL (0.8-7.7); IgG, Serum 1360 mg/dL (600-1540); Synthesis Rate IgG, CSF -8.3 mg/24 h (-9.9 TO +3.3)
[2024-04-17 17:50] LABS: (1-3)-B-D-glucan* 255 pg/mL
[2024-04-21 06:53] LABS: Albumin, Serum 2.6 g/dL (3.6-5.1)
[2024-04-21 06:54] LABS: Interpretation POSITIVE
[2024-04-21 17:48] LABS: Cryptococcal Source CEREBROSPINAL FLUID; Enterovirus Source CSF; HSV-1 DNA, CSF NOT DETECTED copies/mL; HSV-1 DNA, CSF Source CEREBROSPINAL FLUID; West Nile Virus (IgG), CSF <1.30
[2024-04-22 06:21] LABS: Cryptococcal Ag Screen NOT DETECTED; Enterovirus RNA, PCR CSF NOT DETECTED; HSV-2 DNA, CSF NOT DETECTED copies/mL; VDRL, CSF Qual* NON-REACTIVE; West Nile Virus (IgM), CSF <0.90
[2024-04-24 06:23] LABS: Angiotensin Convert Enz, CSF* <5 U/L (< OR = 15); Myelin Basic Protein, CSF* 5.4 mcg/L (< OR = 4.0); Oligoclonal Bands, CSF* ABSENT (ABSENT)
[2024-04-24 06:25] LABS: Oligoclonal Bands, CSF* ABSENT (ABSENT)
[2024-04-24 06:26] LABS: Angiotensin Convert Enz, CSF* <5 U/L (< OR = 15)
== END 2024-04-16 01:36 | disposition expired | DRG 207 ==
LOC: SERX 17:52 → SERHOLD 23:16 → S2NX 04-06 05:31 → S2SX 04-08 08:25 → S2NX 04-17 07:22 → S2SX 04-17 07:23
PROVIDERS: Internal Medicine; Nurse Practitioner Family; Psychiatry & Neurology Neurology; Student in an Organized Health Care Education/Training Program; Admitting Provider Internal Medicine; Emergency Provider Emergency Medicine; PCP Nurse Practitioner Family; Visit Provider Internal Medicine
DX: J96.01 Acute respiratory failure with hypoxia (principal); A41.9 Sepsis, unspecified organism; R65.21 Severe sepsis with septic shock; I21.A1 Myocardial infarction type 2; J18.9 Pneumonia, unspecified organism; G92.8 Other toxic encephalopathy; N18.6 End stage renal disease; N17.0 Acute kidney failure with tubular necrosis; I63.89 Other cerebral infarction; G04.81 Other encephalitis and encephalomyelitis; J69.0 Pneumonitis due to inhalation of food and vomit; I69.354 Hemiplegia and hemiparesis following cerebral infarction affecting left non-dominant side; E66.2 Morbid (severe) obesity with alveolar hypoventilation; I13.2 Hypertensive heart and chronic kidney disease with heart failure and with stage 5 chronic kidney disease, or end stage renal disease; I16.1 Hypertensive emergency; R47.01 Aphasia; Z68.41 Body mass index [BMI] 40.0-44.9, adult; E87.29 Other acidosis; J96.02 Acute respiratory failure with hypercapnia; I50.9 Heart failure, unspecified; E78.5 Hyperlipidemia, unspecified; R16.0 Hepatomegaly, not elsewhere classified; E86.0 Dehydration; N20.0 Calculus of kidney; I46.2 Cardiac arrest due to underlying cardiac condition; E11.22 Type 2 diabetes mellitus with diabetic chronic kidney disease; E11.51 Type 2 diabetes mellitus with diabetic peripheral angiopathy without gangrene; I48.91 Unspecified atrial fibrillation; E83.39 Other disorders of phosphorus metabolism; E87.5 Hyperkalemia; D63.1 Anemia in chronic kidney disease; E83.51 Hypocalcemia; N30.90 Cystitis, unspecified without hematuria; R29.810 Facial weakness; I95.3 Hypotension of hemodialysis; N25.89 Other disorders resulting from impaired renal tubular function; R74.01 Elevation of levels of liver transaminase levels; I65.23 Occlusion and stenosis of bilateral carotid arteries; E83.52 Hypercalcemia; Z79.4 Long term (current) use of insulin; Z87.442 Personal history of urinary calculi; R26.2 Difficulty in walking, not elsewhere classified; Z78.1 Physical restraint status; Z78.9 Other specified health status; G25.3 Myoclonus; Z79.899 Other long term (current) drug therapy; Z99.2 Dependence on renal dialysis; Z79.84 Long term (current) use of oral hypoglycemic drugs; Z79.82 Long term (current) use of aspirin; Z11.52 Encounter for screening for COVID-19; Z79.02 Long term (current) use of antithrombotics/antiplatelets
CPT/HCPCS: 36415; 36600; 70450; 70544; 70551; 71045; 71250; 71260; 74018; 74176; 75635; 76770; 76937; 77001; 80048; 80053; 80061; 80069; 80074; 80164; 80202; 81001; 82010; 82040; 82042; 82140; 82164; 82436; 82570; 82784; 82803; 82945; 83036; 83605; 83735; 83873; 83880; 83916; 84100; 84132; 84133; 84145; 84156; 84157; 84300; 84439; 84443; 84484; 84540; 85025; 85384; 85610; 85652; 85730; 86021; 86036; 86038; 86140; 86160; 86171; 86255; 86331; 86403; 86580; 86592; 86635; 86788; 86789; 87040; 87070; 87077; 87081; 87086; 87186; 87205; 87389; 87400; 87449; 87498; 87530; 87634; 87811; 89051; 93005; 93306; 93880; 94002; 94003; 94640; 94660; 94667; 95816; 96361; 96365; 96375; 99285; A4649; A9270; C1750; C1894; J0131; J0283; J0290; J0360; J0613; J0692; J0696; J1568; J1630; J1642; J1643; J1815; J1940; J2060; J2185; J2470; J2919; J3010; J3360; J3370; J3475; J3480; J3490; J7030; J7050; P9047; Q5105; Q5106; Q9967